=== PATIENT | male | born 1945 | race Caucasian/White ===

== ENCOUNTER 2017-12-14 06:22 | Inpatient (IN) | payer OTHER ==
[~2017-12-14] VITALS: Ht 167.6 cm; Wt 79.9 kg
[~2017-12-14 06:22] MED LIST: AMLO10TA2 PO; ASPI1TAB57 PO; CALC0.25 PO; CINN500C2 PO; EMPA1TAB7 PO; FISH1200 PO; INSU1INJ14 SQ; MAPA500T PO; METO50TA PO; MULT-65 PO; NOVOLOGP2 SQ
[2017-12-14] MEDS ORDERED: ACETAMINOPHEN 1000 MG/100 ML 100 ML IV ONE (06:59)
[2017-12-14] MEDS ORDERED: GENTAMICIN SULFATE 80 MG/2 ML VIAL ONE (07:00)
[2017-12-14] MEDS ORDERED: BUPIVACAINE/EPINEPHRINE 0.25% 50 ML VIAL ONE (07:00)
[2017-12-14] MEDS ORDERED: CHLORHEXIDINE GLUCONATE 2 % 1 PACK (2 CLOTHS) TOPICAL PRN (07:15)
[2017-12-14] MEDS ORDERED: SODIUM CHLORID 0.9% 500 ML IV PRN (07:15)
[2017-12-14] MEDS ORDERED: VANCOMYCIN 1 GM/200 ML INJ 200 ML IV SCH (07:15)
[2017-12-14] MEDS ORDERED: ceFAZolin 2 GM PREMIX 50 ML IV SCH (07:15)
[2017-12-14] MEDS ORDERED: POVIDONE IODINE 5% (ANTISEPSIS KIT) 4 APPLICATIONS EACH NARE PRN (07:15)
[2017-12-14] MEDS ORDERED: METOPROLOL TARTRATE 25 MG TAB PO PRN (07:15)
[2017-12-14] MEDS ORDERED: EXPAREL PERI-ARTICULAR INJECTION (TOTAL VOL. 60 ML) P-ARTICULR SCH ×4 (07:15→09:00)
[2017-12-14] MEDS ORDERED: LACTATED RINGER'S 1000 ML IV PRN (07:15)
[2017-12-14] MEDS ORDERED: CHLORHEXIDINE GLUCONATE 4% SOLN 120 ML BTL TOPICAL SCH (07:15)
[2017-12-14] MEDS ORDERED: BUPIVACAINE/EPINEPHRINE 0.25% PF 10 ML VIAL ONE (07:41)
[2017-12-14] MEDS ORDERED: TRANEXAMIC ACID INJ 799 MG in SODIUM CHLORIDE 0.9% INJ 100 ML IV SCH (09:00)
--- NOTE | 2017-12-14 11:28 | PD.OP ---
cc: Jorge Ortiz MD Operative Report Date of Surgery: Dec 14, 2017 Preoperative Diagnosis: Osteoarthritis left hip Postoperative Diagnosis: Same Procedure: Left total hip replacement arthroplasty, direct anterior exposure Anesthesia: Gen. Surgeon: Jorge Ortiz Sub Master(s): PASTOR Oswald Operation and Findings: EBL: 300 cc INDICATION: This patient presents with significant hip pain related to severe osteoarthritis of the left hip which is worse than the right hip. Both hips have severe arthritis.. Despite extensive conservative care this patient continues to be painful and now presents for surgical treatment. NOTE: Chantel Oswald PA-C was present for the entire surgical procedure as my dental assistant teacher. In my medical opinion her skill and care was necessary for the proper management of this patient. COMPONENTS: COMPANY: [employer] CUP: [place], 54 mm, 100 series, gription surface LINER: Altrx 36 mm, neutral STEM: Size 13, high offset, [place], hydroxyapatite-coated HEAD: Metal, 36, +1.5, /14 taper PROCEDURE: This patient was brought to the operating room and anesthetized in the supine position and positioned on the fracture table with both legs held extended. The left hip and leg was scrubbed with alcohol followed by Hibiclens followed by ChloraPrep and draped sterilely. Antibiotics were given within routine time window and a timeout was done. A 4 inch incision was made starting 2 cm distal and 2 cm lateral to the anterior superior iliac spine. The fascia erasmo was opened longitudinally. The interval between the fascia erasmo and the rectus was opened down to the capsule of the hip joint. Retractors were positioned allowing good visualization of the capsule. This was opened longitudinally and flaps were created. Stay sutures were utilized. Exposure was excellent. The neck was cut at the proper location using fluoroscopy as a guide. The head was removed. Deep retractors were positioned allowing good visualization of the acetabulum. Acetabulum was deepened down to the floor starting with a proper size reamer and reaming up to 53 mm. A trial was utilized. Fluoroscopy was used to check position and confirmed satisfactory alignment. The rim was reamed with a 54 mm reamer and the final cup was positioned in approximately 20 of anteversion and 40-45 of abduction. Position was satisfactory. A single hole eliminator was positioned followed by the final liner. The lifting hook was utilized. The leg was dropped to the floor, maximally externally rotated and brought across the midline. Retractors were positioned. A box osteotome was utilized followed by progressive broaching to the proper stem size. Trial reduction showed excellent alignment and fit. With 60 of external rotation the leg was dropped to the floor without evidence of anterior subluxation. The wound was irrigated. The final stem was inserted and was found to be very stable. The final reduction using the final head. Stability was as previously noted. Intraoperative x-rays were taken. The wound was irrigated copiously. Hemostasis was controlled. Local anesthesia was utilized. The capsule was repaired with #2 Tycron sutures. The fascia erasmo was repaired with running 0 PDS on a loop. Subcutaneous tissue was approximated with 2-0 Vicryl and skin with running intradermal 3-0 Vicryl followed by Steri-Strips. A sterile dressing was applied. The patient was awakened and taken to the recovery room in satisfactory condition. FINDINGS: There was severe osteoarthritis of the left hip. The final solution was excellent. No instability was noted. No complication was noted. Jorge Ortiz MD Dec 14, 2017 11:28
[2017-12-14] MEDS ORDERED: NALOXONE HCL 0.4 MG/ML AMP IV PUSH PRN (11:30)
[2017-12-14] MEDS ORDERED: ACETAMINOPHEN/HYDROcodone 325 MG/7.5 MG TAB PO PRN ×2 (11:30)
[2017-12-14] MEDS ORDERED: MORPHINE SULFATE 8 MG/ML INJ IM PRN (11:30)
[2017-12-14] MEDS ORDERED: MISCELLANEOUS NURSING INFORMATION XX PRN (11:30)
[2017-12-14] MEDS ORDERED: GLUCAGON 1 MG/ML VIAL OTHER PRN (11:30)
[2017-12-14] MEDS ORDERED: DEXTROSE 50% IN WATER 50 ML VIAL(D50) IV PUSH PRN (11:30)
[2017-12-14] MEDS ORDERED: MISCELLANEOUS PHARMACY INFORMATION XX ONE (11:30)
[2017-12-14] MEDS ORDERED: ASPI325T33 PO (11:31)
[2017-12-14] MEDS ORDERED: HYDR-3580 PO (11:31)
--- NOTE | 2017-12-14 11:31 | RADRPT ---
EXAM DATE/TIME: 12/14/2017 10:16 [place] COMPARISON: No previous studies available for comparison. INDICATIONS : Left total hip replacement. MEDICAL HISTORY : None. SURGICAL HISTORY : None. ENCOUNTER: Initial ACUITY: 1 day PAIN SCORE: Non-responsive. LOCATION: Left Hip CONCLUSION: Fluoroscopic images during left hip arthroplasty. No hardware loosening or fracture. James Shelton MD on December 14, 2017 at 11:30 Board Certified Radiologist. This report was verified electronically.
[2017-12-14] MEDS ORDERED: Post-op Orders (for Pharmacy) XX ONE (11:51)
[2017-12-14] MEDS ORDERED: DO NOT ADM ANY ANTICOAGULANT DRUGS PRN (11:51)
[2017-12-14] MEDS ORDERED: ePHEDrine/NS 25 MG/5 ML SYRINGE IV ONE (12:00)
[2017-12-14] MEDS ORDERED: NEOSTIGMINE 5 MG/5 ML SYRINGE IV PUSH ONE (12:00)
[2017-12-14] MEDS ORDERED: PROPOFOL 200 MG/20 ML AMP IV ONE (12:00)
[2017-12-14] MEDS ORDERED: SODIUM CHLOR 0.9% 250 ML INJ 250 ML IV ONE (12:00)
[2017-12-14] MEDS ORDERED: ROCURONIUM INJ 50 MG/5 ML SYRINGE IV PUSH ONE (12:00)
[2017-12-14] MEDS ORDERED: GLYCOPYRROLATE 1 MG/5 ML SYRINGE IV PUSH ONE (12:00)
[2017-12-14] MEDS ORDERED: LACTATED RINGER'S 1000 ML INJ 1,000 ML IV ONE (12:00)
[2017-12-14] MEDS ORDERED: DEXAMETHASONE SOD PHOS 4 MG/ML VIAL IV ONE (12:00)
[2017-12-14] MEDS ORDERED: PHENYLEPH/NS 1000 MCG/10 ML SYR IV ONE (12:00)
[2017-12-14] MEDS ORDERED: LIDOCAINE HCL 1% PF 5 ML SYRINGE OTHER ONE (12:00)
[2017-12-14] MEDS ORDERED: ONDANSETRON HCL 4 MG/2 ML VIAL IV ONE (12:00)
[2017-12-14] MEDS ORDERED: MIDAZOLAM HCL 2 MG/2 ML VIAL ONE (12:00)
[2017-12-14] MEDS ORDERED: PHENYLEPHRINE HCL 10 MG/ML VIAL IV ONE (12:00)
[2017-12-14] MEDS: LACTATED RINGER'S 1000 ML INJ 1,000 ML IV SCH ×2 (12:15→23:10)
[2017-12-14] MEDS ORDERED: ASPIRIN 81 MG CHEW TAB CHEW ONE (12:45)
[2017-12-14 15:34] VITALS: O2SAT 96
[2017-12-14] MEDS ORDERED: BALANCED SALT SOLN OPHT IRRIG 15 ML BTL RIGHT EYE ONE (15:45)
[2017-12-14 16:00] VITALS: BP 135/68; PULSE 86; RESP 18; TEMP 96.9; O2SAT 95
[2017-12-14] MEDS: INSULIN ASPART 1,000 UNITS/10 ML VIAL SQ SCH (17:00)
[2017-12-14] MEDS ORDERED: WALKER WHEELS/F1 MIS (19:44)
[2017-12-14] MEDS ORDERED: COMMODE 3-IN-11 MIS (19:45)
--- NOTE | 2017-12-14 19:47 | HHI.FF ---
Face to Face Verification Diagnosis: (1) Osteoarthritis of left hip Physical Therapy Gait training, Safety evaluation, Transfer training, bed to chair Hip: Total hip, Protocol: Left, Progress to weight bearing Left LE Weight Bearing: WB as tolerated Additional Instructions PT 4 days/wk for 2 weeks. WBAT LeftLE. Anterior [place]rey precautions. Walker as needed. Gait training. Nursing RN Days per Week: 2 x Week(s): 1 Dressing Changes: Do not change dressing Additional Instructions Vitals assessment. Dressing assessment - do not change unless saturated. I have seen patient Klaus Lees on 12/14/17. My clinical findings support the need for the requested home health care services because: Limited ability to care for self High risk of falls I certify that my clinical findings support that this patient is homebound because: Post-op weakness Unsteady gait/balance Mariam Hopson Dec 14, 2017 19:47
--- NOTE | 2017-12-14 19:48 | HHI.DCPOC ---
Discharge Care Plan Diagnosis: (1) Osteoarthritis of left hip Your Health Problems Are: Difficulty with ADL Incision/Drains Swelling Goals to Promote Your Health * To prevent worsening of your condition and complications * To maintain your health at the optimal level Directions to Meet Your Goals Take your medications as prescribed Follow your dietary instruction Follow activity as directed Keep your appointments as scheduled Take your immunizations and boosters as scheduled If your symptoms worsen call your PCP, if no PCP go to Urgent Care Center or Emergency Room Smoking is Dangerous to Your Health. Avoid second hand smoke Call the 24-hour hour crisis hotline for domestic abuse at Mariam Hopson Dec 14, 2017 19:48
--- NOTE | 2017-12-14 19:54 | HHI.DS ---
Discharge Summary Admission Date Dec 14, 2017 at 06:22 Discharge Date: Dec 15, 2017 Admitting Diagnosis see below Diagnosis: (1) Osteoarthritis of left hip Diagnosis: Principal ICD Codes: M16.12 - Unilateral primary osteoarthritis, left hip (2) Avascular necrosis of bone of left hip Diagnosis: Secondary ICD Codes: M87.052 - Idiopathic aseptic necrosis of left femur Procedures Left total hip arthroplasty, direct anterior approach Brief History This is a 72 year old male patient with a 5-6 year history of left hip pain. He adjusted his activities and took OTC medications. This began to escalate over the last year so he increased to higher strength ibuprofen and intermittent tylenol. His PCP eventually instructed him to stop taking NSAIDs due to kidney disease. Xrays were performed of the hip showing substantial inflammatory arthritis and some features of avascular necrosis. Because of his substantial pain and features of AVN, further conservative care was not recommended. Surgical treatment in the form of left total hip arthroplasty, anterior approach, was suggested. The patient agreed and now presents for the above procedure. Hospital Course Surgical treatment was performed on the day of admission without complication. He recovered well in PACU and was transferred to the orthopaedic floor. Pain was controlled with IV and oral medications. DVT prophylaxis was initiated with 2 ASA 81mg. He was compliant with physical therapy and all total hip precautions. After 1 day he was found to be stable and discharged home with home health care. He was instructed to continue his therapy, to not change his surgical dressing and to ice the operative site twice daily. Patient was given prescriptions of [place] 7.5mg to take as needed and ASA 81mg to be taken twice daily. Pt Condition on Discharge: Stable Discharge Disposition: Disch w/ Home Health Serv Discharge Instructions Diet Instructions: Diabetic Diet, High Fiber Diet Activities You Can Perform: Weight Bearing as [place] Activities to Avoid: Strenuous Activity Additional Activity Instruc.: Anterior [place] precautions New Medications: Commode 3-in-1 (Commode 3-in-1) 1 Mis Mis EA .XX DIRECTED, #1 0 Refills Walker with Front Wheels (Walker with Front Wheels) 1 Mis Mis EA .XX DIRECTED, #[address] (Aspirin EC) 325 Mg Tabdr 81 MG PO BID for Prevent Blood Clot, #60 TAB Hydrocodone/Acetaminophen (Hydrocodone-Acetamin 7.5-325) 7.5 Mg-325 Mg Tablet 1 TAB PO Q4H PRN for Pain, #50 TAB Continued Medications: Acetaminophen (Mapap) 500 Mg Tab 500 MG PO Q4-6H PRN for PAIN, TAB 0 Refills Amlodipine (Amlodipine) 10 Mg Tab 10 MG PO DAILY for Blood Pressure Management, #30 TAB 0 Refills Calcitriol (Calcitriol) 0.25 Mcg Cap 0.25 MCG PO DAILY for Calcium Supplement, #30 CAP 0 Refills Cinnamon (Eql Cinnamon) 500 Mg Cap 2000 MG PO BID, #1 BOTTLE Empagliflozin-Linagliptin (Glyxambi) 10-5 Mg Tab 1 TAB PO DAILY for Blood Sugar Management, #30 TAB 0 Refills Insulin Aspart Inj (Novolog Inj) 1,000 Unit/10 Ml Vial 5 UNITS SQ TIDAC for Blood Sugar Management, #1 INJECTION 0 Refills Insulin Degludec Inj (Tresiba Flextouch Pen Inj) 300 unit/3 ML Pen 1 UNITS SQ HS for Blood Sugar Management, #15 ML 0 Refills Metoprolol Tartrate (Metoprolol Tartrate) 50 Mg Tab 50 MG PO BID, #60 TAB 0 Refills Multiple Vitamin (Multi-Vitamin Daily) 1 Tab Tab 1 TAB PO DAILY for Nutritional Supplement, TAB 0 Refills [place]-3 Fatty Acids (Fish Oil 1200 mg) 360 Mg-1,200 Mg Cap 2 CAP PO BID Discontinued Medications: Aspirin DR (Aspirin 81) 81 Mg Tabdr 81 MG PO DAILY, TAB 0 Refills Mariam Hopson Dec 14, 2017 19:54
[2017-12-14 20:00] VITALS: BP 138/74; PULSE 92; RESP 16; TEMP 98; O2SAT 93
[2017-12-14] MEDS: MAGNESIUM HYDROXIDE SUSP 30 ML CUP PO SCH (20:25)
[2017-12-14] MEDS: METOPROLOL TARTRATE 50 MG TAB PO SCH (20:26)
[2017-12-14] MEDS ORDERED: SENNOSIDES 8.6 MG TAB PO SCH (21:00)
[2017-12-14] MEDS ORDERED: ASPIRIN EC 325 MG TABEC PO SCH (21:00)
[2017-12-14] MEDS ORDERED: NON-FORMULARY DRUG (Insulin Degludec Inj (Tresiba Flextouch Pen Inj) 1 UNITS) SQ SCH (21:00)
[2017-12-15] VITALS: BP 129/72; PULSE 99; RESP 15; TEMP 98; O2SAT 95
[2017-12-15 04:00] VITALS: BP 140/68; PULSE 83; RESP 15; TEMP 97.6; O2SAT 93
[2017-12-15 06:19] LABS: HEMATOCRIT 40.1 % (39.0-51.0); HEMOGLOBIN 13.3 GM/DL (13.0-17.0)
[2017-12-15 08:00] VITALS: BP 139/65; PULSE 72; RESP 18; TEMP 96.9; O2SAT 94
[2017-12-15] MEDS: INSULIN ASPART 1,000 UNITS/10 ML VIAL SQ SCH ×2 (08:43→12:25)
[2017-12-15] MEDS: METOPROLOL TARTRATE 50 MG TAB PO SCH (08:43)
[2017-12-15] MEDS: MAGNESIUM HYDROXIDE SUSP 30 ML CUP PO SCH (08:43)
[2017-12-15] MEDS ORDERED: EMPAGLIFLOZIN LINAGLIPTIN PO SCH (09:00)
[2017-12-15] MEDS ORDERED: ASPIRIN EC 81 MG TABEC PO SCH (09:00)
[2017-12-15 12:00] VITALS: BP 128/65; PULSE 69; RESP 18; TEMP 96.8; O2SAT 91
[2017-12-15] MEDS: LACTATED RINGER'S 1000 ML INJ 1,000 ML IV SCH (12:21)
--- NOTE | 2017-12-15 12:40 | PD.ORT.PN ---
Subjective Subjective Remarks He is doing 'fine'. He did not sleep well last night but states his pain is better than expected. He 'actually feels better than before the surgery'. He denies any new leg pain, CP or SOB. He is ready for d/c home. Objective Vitals Vital Signs Date Time Temp Pulse Resp B/P (MAP) Pulse Ox O2 Delivery O2 Flow Rate FiO2 12/15/17 11:52 16 12/15/17 08:00 96.9 72 18 139/65 (89) 94 12/15/17 04:00 97.6 83 15 140/68 (92) 93 12/15/17 00:00 98.0 99 15 129/72 (91) 95 12/14/17 20:00 98.0 92 16 138/74 (95) 93 12/14/17 16:00 96.9 86 18 135/68 (90) 95 12/14/17 15:34 96 Nasal Cannula 3.00 12/14/17 13:30 98.3 74 18 111/58 (75) 99 Nasal Cannula 2 12/14/17 13:00 75 14 111/58 (75) 99 12/14/17 12:45 75 20 109/61 (77) 98 I/O 12/14/17 12/14/17 12/14/17 12/15/17 12/15/17 12/15/17 07:00 15:00 23:00 07:00 15:00 23:00 Intake Total 2000 ml 800 ml Output Total 700 ml Balance 1300 ml 800 ml Intake Oral 800 ml IV Total 2000 ml Output Urine Total 400 ml Estimated Blood Loss 300 ml # Voids 4 5 Result Diagram: 12/15/17 0504 Procedures Left total hip arthroplasty, direct anterior approach Objective Remarks Standing in room leaning on walker present NAD VSS LLE Left Hip dressing c/d/i, minimal drainage, mild swelling, no erythema Thigh and calf supple, neg homans distal +motor at, +sens, +nvi Assessment & Plan Ortho Post Op Day #: 1 Problem List: (1) Osteoarthritis of left hip ICD Codes: M16.12 - Unilateral primary osteoarthritis, left hip Qualifiers: Qualified Codes: M16.12 - Unilateral primary osteoarthritis, left hip (2) Avascular necrosis of bone of left hip ICD Codes: M87.052 - Idiopathic aseptic necrosis of left femur Assessment and Plan pod#1 s/p L [place], anterior approach Ortho stable. Doing well today. Ok to d/c home w [facility] after PT today. [place] for pain control. ASA 81mg twice daily. Hold dressing changes unless saturated. PT - WBAT LLE. Anterior [place] precautions. F/U in 2 weeks as scheduled. F2F signed. Mariam Hopson Dec 15, 2017 12:40
== END 2017-12-15 14:18 | disposition home health service (06) | DRG 470 ==
LOC: HSDI 06:22 → N06A 13:56
PROVIDERS: ADMIT Orthopaedic Surgery Orthopaedic Surgery of the Spine; ATTEND Orthopaedic Surgery Orthopaedic Surgery of the Spine
PROC: 0SRB01A Replacement of Left Hip Joint with Metal Synthetic Substitute, Uncemented, Open Approach (ICD-10-PCS; principal; 2017-12-14 09:12)
DX: M16.12 Unilateral primary osteoarthritis, left hip (principal); D69.3 Immune thrombocytopenic purpura; E09.9 Drug or chemical induced diabetes mellitus without complications; H90.5 Unspecified sensorineural hearing loss; M87.9 Osteonecrosis, unspecified; I25.10 Atherosclerotic heart disease of native coronary artery without angina pectoris; E78.00 Pure hypercholesterolemia, unspecified; I10 Essential (primary) hypertension; Z79.82 Long term (current) use of aspirin; Z79.4 Long term (current) use of insulin; Z95.2 Presence of prosthetic heart valve
CPT/HCPCS: 73502; 76000; 82948; 85014; 85018; 86850; 86900; 86901; 86920; 94150; C1776; C9290; J0131; J0690; J1100; J1580; J1815; J2250; J2370; J2405; J2710; J3010; J3370; J7050; J7120

== ENCOUNTER 2018-06-29 20:29 | Inpatient (IN) ==
[2018-06-29] MEDS ORDERED: Potassium Chlor 20 mEq Premix 20 MEQ/100 ML PIGGYBACK IV.SIG PRN ×2 (23:46)
[2018-06-29] MEDS ORDERED: Potassium Chlor 40 mEq Premix 40 MEQ/100 ML PIGGYBACK IV.SIG PRN ×2 (23:46)
[2018-06-29] MEDS ORDERED: Potassium Phosphate Inj 30 MMOL in Sodium Chlor 0.9% Inj 250 ML IV.SIG PRN (23:46)
[2018-06-29] MEDS ORDERED: Dextrose 50% in Water 50 ML Vial IV.PUSH PRN (23:46)
[2018-06-29] MEDS ORDERED: Potassium Chloride 25 MEQ Effervescent Tablet PO PRN (23:46)
[2018-06-29] MEDS ORDERED: Sodium Phosphate Inj 30 MMOL in Sodium Chlor 0.9% Inj 250 ML IV.SIG PRN (23:46)
[2018-06-29] MEDS ORDERED: Potassium Phosphate 500 MG Soluble Tablet PO PRN ×2 (23:46)
[2018-06-29] MEDS ORDERED: Magnesium Sulfate Inj 4 GM in Sodium Chlor 0.9% Inj 92 ML IV.SIG PRN (23:46)
[2018-06-29] MEDS ORDERED: Magnesium Sulfate Inj 2 GM in Sodium Chlor 0.9% Inj 96 ML IV.SIG PRN (23:46)
[2018-06-29] MEDS ORDERED: Magnesium Oxide 400 MG Tablet PO PRN (23:46)
--- NOTE | 2018-06-29 23:46 | P.HPCC ---
History of Present Illness Service: Critical Care Medicine Primary Care Physician: Hussein Morgan MD, PhD Chief Complaint: fatigue, sob History of Present Illness: This is a 72-year-old male with a history of prior aortic valve pathology status post an aortic valve replacement in 2010 here at [facility]. He has been seeing his primary care doctor at the [facility] over the last 2 weeks for increasing shortness of breath and lower extremity edema. He was placed on furosemide with some symptomatic relief. Today, he was in clinic and he stated he continued to feel worsening of his shortness of breath today. EKG in clinic demonstrated third-degree heart block and the patient was sent from clinic to the [facility] in [place]. [facility] in [place] admitted the patient, however no electrophysiology or cardiology consultation was available at the [facility], and the [facility] asked [facility] to accept the patient in transfer for workup of his third-degree heart block. Per the [facility] reports, the patient had a ventricular rate in the 30s-40s and was intermittently transcutaneously paced. Upon arrival to our institution, the patient has a ventricular rate of 70s. Repeat EKG still demonstrates that the patient has P waves and QRS complexes, but it does appear that the patient has complete heart block. His QRS complex is narrow, which would suggest that his ventricular rhythm is somewhat junctional in nature, but he clearly has regular P waves which are not associated in any way with his QRS complex. The patient is here still endorses mild shortness of breath. He denies any chest pain. He states that he has not had a recent echocardiogram. Does endorse lower extremity edema. Endorses mild dyspnea on exertion which has been very slowly increasing over the last 2 weeks. Denies orthopnea. Denies PND. Denies fever and chills. He is febrile to 102 here on admission, and other than he states approximately 2-3 weeks ago he felt like he had "head cold", he endorses no other infectious symptoms. He denies any runny nose, cough, congestion. Denies nausea, vomiting, diarrhea, constipation, abdominal pain. The remainder of the review of systems is negative. Dr. Varun Santillan with cardiology has been informed of the patient's admission and has accepted the patient in consultation from the [facility]. PMHx: prior aortic valve pathology, s/p valve replacement CKD stage III Chronic heart failure, unknown type CAD HLD DM PSHx: aortic valve replacement FHx: mother with pacemaker, unknown reason why. [facility]. of note, patient on 50mg metoprolol BID. Inpatient Certification: I certify that the inpatient services were ordered in accordance with Medicare regulations governing the order. This includes certification that hospital inpatient services are reasonable and necessary and in the case of services not specified as inpatient-only under 42 CFR 419.22(n), that they are appropriately provided as inpatient services in accordance to with the 2-midnight benchmark under 43 CFR 412.3(e) Estimated Total Length of Stay (Days): 5 Plans for Post Hospital Care: Home Review of Systems All other systems reviewed negative except as stated in HPI [facility] - Family History Family History: Family History (Last Updated 06/30/18 @ 01:01 by Misha Sharif MD) Mother Pacemaker - Social History I have reviewed the patient's Social History: Yes Medications and Allergies Allergies Allergy/AdvReac Type Severity Reaction Status Date / Time Dghycnb-[id number]-Cbn Reductase Allergy Severe muscle Verified 04/12/18 05:50 Inhibitor weakness atorvastatin Allergy Mild Verified 04/12/18 05:50 Exam Vital signs: Intake & Output 06/29/18 06/29/18 06/30/18 06:59 18:59 06:59 Weight 84.5 kg Other: Weight On Admission 84.5 kg Narrative: GENERAL: Elderly male, sitting up in bed, no apparent distress. HEENT: Normocephalic. Atraumatic. Pupils equal, round, reactive, conjugate. Mucous membranes are moist NECK: Trachea is midline. There is no JVD. CHEST: Equal chest rise. Mildly tachypneic but can talk in full sentences. Appears unlabored. Nasal cannula oxygen. CARDIOVASCULAR: Normal rate of 72, slightly irregular rhythm. By EKG, third- degree heart block with a narrow QRS complex. ABDOMEN: Soft, nontender, nondistended. No guarding. MUSCULOSKELETAL: Pulses 2+. 1+ pitting edema of the lower extremities. NEUROLOGICAL: RASS 0. GCS 15. Follows commands in all 4 extremities. No focal deficits. Caprini VTE Risk Assessment Caprini VTE Risk Assessment: Moderate/High Risk (score >= 2) Caprini Risk Assessment Model: Point Value = 1 Point Value = 2 Point Value = 3 Point Value = 5 Age 41-60 Minor surgery BMI > 25 kg/m2 Swollen legs Varicose veins or History of unexplained or recurrent spontaneous Oral contraceptives or hormone replacement Sepsis (< 1 month) Serious lung disease, including pneumonia (< 1 month) Abnormal pulmonary function Acute myocardial infarction Congestive heart failure (< 1 month) History of inflammatory bowel disease Medical patient at bed rest Age 61-74 Arthroscopic surgery Major open surgery (> 45 min) Laparoscopic surgery (> 45 min) Malignancy Confined to bed (> 72 hours) Immobilizing plaster cast Central venous access Age >= 75 History of VTE Family history of VTE Factor V Leiden Prothrombin [id number] Lupus anticoagulant Anticardiolipin antibodies Elevated serum homocysteine Heparin-induced thrombocytopenia Other congenital or acquired thrombophilia Stroke (< 1 month) Elective arthroplasty Hip, pelvis, or leg fracture Acute spinal cord injury (< 1 month) Prophylaxis Regimen: Total Risk Factor Score Risk Level Prophylaxis Regimen 0-1 Low Early ambulation 2 Moderate Order ONE of the following: *Sequential Compression Device (SCD) *Heparin 5000 units SQ BID 3-4 Higher Order ONE of the following medications: *Heparin 5000 units SQ TID *Enoxaparin/Lovenox 40 mg SQ daily (WT < 150 kg, CrCl > 30 mL/min) *Enoxaparin/Lovenox 30 mg SQ daily (WT < 150 kg, CrCl > 10-29 mL/min) *Enoxaparin/Lovenox 30 mg SQ BID (WT < 150 kg, CrCl > 30 mL/min) AND/OR *Sequential Compression Device (SCD) 5 or more Highest Order ONE of the following medications: *Heparin 5000 units SQ TID (Preferred with Epidurals) *Enoxaparin/Lovenox 40 mg SQ daily (WT < 150 kg, CrCl > 30 mL/min) *Enoxaparin/Lovenox 30 mg SQ daily (WT < 150 kg, CrCl > 10-29 mL/min) *Enoxaparin/Lovenox 30 mg SQ BID (WT < 150 kg, CrCl > 30 mL/min) AND *Sequential Compression Device (SCD) Assessment and Plan - Assessment and Plan Plan: Assessment: 72-year-old male with new diagnosis of third-degree heart block. We will keep on telemetry in ICU with Zoll pads attached. Will need to rule out acute ischemia and acute worsening of his ventricular function as a cause for his new conduction disorder. I do not think his metoprolol is associated with his AV antonette dysfunction, but we will hold this at this time. Is unclear to me what significance if any his fever has on his overall clinical course, as he does not have any infectious complaints at this time. Will obtain chest x- ray, CBC, BMP, magnesium, phosphorus, serial troponins, BNP. He will also need 2D echocardiogram to evaluate for left ventricular function and diastolic function. Clearly very high risk and highly complex. If his workup is negative for ischemia or worsening heart failure, the patient will likely need permanent pacemaker. I have consulted cardiology to assist with the workup. 3rd degree heart block - check CMP, Mg, Phos - check cardiac enzymes - check BNP - EKG - cardiology consult - NPO at [place] for possible permanent pacemaker - keep on Zoll Pads - if any symptomatic bradycardia, low threshold for transvenous pacer placement. - 2d echo Acute hypoxemia - CXR - CBC - may require forced diuresis Fever - unclear significance - check CBC - if leukocytosis, may need to rule out sources of infection. Chronic Kidney disease stage III possible superimposed Acute kidney injury - unknown baseline Cr - check urine electrolytes - bmp, mg, phos - hold off on ivf at this time. Congestive heart failure, unknown type - 2d echo - bnp - may need forced diuresis. HLD - statin SCDs NPO pending work-up.
--- NOTE | 2018-06-30 01:23 | XR ---
EXAM DATE: 06/30/2018 1:15 AM EDT AGE/SEX: 72 years / Male INDICATIONS: Shortness of breath. CLINICAL DATA: This is the patient's initial encounter. Patient reports that signs and symptoms have been present for 1 day and indicates a pain score of 0/10. MEDICAL/SURGICAL HISTORY: Hypertension. Diabetes. CABG. Left hip arthroplasty. COMPARISON: No prior exams available for comparison. FINDINGS: Postoperative median sternotomy. Mild interstitial edema pattern. No significant effusion. No pneumot horax. Heart size upper limits normal. CONCLUSION: Interstitial prominence most characteristic of mild interstitial edema. Previous sternotomy. Electronically signed by: Watler Oscar MD 06/30/2018 1:22 AM EDT
[2018-06-30] MEDS: Insulin NovoLIN Regular Correctional Sugar Inj SQ SCH ×4 (01:56→18:05)
[2018-06-30] MEDS: Acetaminophen 325 MG Tablet PO PRN ×2 (02:02→20:35)
[2018-06-30 02:18] LABS: Baso # (Auto) 0.2 th/mm3 (0.0-0.2); Baso % (Auto) 0.9 % (0.0-2.0); Hematocrit 33.7 % (39.0-51.0); Hemoglobin 10.9 gm/dL (13.0-17.0); Lymph # (Auto) 5.8 th/mm3 (1.0-4.8); Lymph % (Auto) 26.3 % (9.0-44.0); Mean Corpuscular HGB Conc 32.3 % (32.0-36.0); Mean Corpuscular Hemoglobin 28.8 pg (27.0-34.0); Mean Corpuscular Volume 89.4 fL (80.0-100.0); Mean Platelet Volume 10.5 fL (7.0-11.0); Mono # (Auto) 1.6 th/mm3 (0.0-0.9); Mono % (Auto) 7.2 % (0.0-8.0); Neut # (Auto) 14.3 th/mm3 (1.8-7.7); Neut % (Auto) 65.6 % (16.0-70.0); Platelet Count 298 th/mm3 (150-450); Red Blood Count 3.77 mil/mm3 (4.50-5.90); Red Cell Distribution Width 14.7 % (11.6-17.2); White Blood Count 21.9 th/mm3 (4.0-11.0)
[2018-06-30 02:37] LABS: Alanine Aminotransferase 23 U/L (12-78); Albumin 2.9 g/dL (3.4-5.0); Anion Gap 13 meq/L (5-15); Aspartate Aminotransferase 19 U/L (15-37); Blood Urea Nitrogen 52 mg/dL (7-18); Calcium 8.6 mg/dL (8.5-10.1); Carbon Dioxide 19.7 meq/L (21.0-32.0); Chloride 106 meq/L (98-107); Glomerular Filtration Rate 30 mL/min (>89); Glucose,Random 155 mg/dL (74-106); Magnesium 2.4 mg/dL (1.5-2.5); Phosphorus 3.9 mg/dL (2.5-4.9); Potassium 5.1 meq/L (3.5-5.1); Sodium 139 meq/L (136-145)
[2018-06-30 02:45] LABS: Alkaline Phosphatase 84 U/L (45-117); Free T4 (Free Thyroxine) 1.45 ng/dL (0.76-1.46); Thyroid Stimulating Hormone 0.711 uIU/mL (0.358-3.740); Total Protein 7.5 g/dL (6.4-8.2); Troponin I 0.11 ng/mL (0.02-0.05)
[2018-06-30 02:48] LABS: Lymphocytes 19 % (9-44); Monocytes 3 % (0-8)
[2018-06-30 02:49] LABS: Acanthocytes Occ; Ovalocytes 1+; Platelet Estimate Normal (Normal); Platelet Morphology Normal (Normal)
[2018-06-30 02:52] LABS: Creatine Kinase 49 U/L (39-308)
[2018-06-30] MEDS ORDERED: Chlorhexidine Gluconate 2% 1 Pack (2 Cloths) TOPICAL PRN (04:00)
[2018-06-30 04:03] LABS: Bacteria,Urine Rare /hpf; Bilirubin,Urine Negative (Negative); Clarity,Urine Hazy (Clear); Color,Urine Yellow (Yellw/Straw); Glucose,Urine (UA) Negative (Negative); Leukocyte Esterase,Urine Negative (Negative); Mucus,Urine Few /lpf (Occasional); Nitrite,Urine Negative (Negative); Specific Gravity,Urine 1.017 (1.002-1.035)
[2018-06-30] MEDS: Chlorhexidine Gluconate 2% 1 Pack (2 Cloths) TOPICAL SCH (05:38)
--- NOTE | 2018-06-30 07:45 | P.PNCC ---
Subjective Subjective Remarks/Hospital Course: This is a 72-year-old male with a history of prior aortic valve pathology status post an aortic valve replacement in 2010 here at [facility]. He has been seeing his primary care doctor at the [facility] over the last 2 weeks for increasing shortness of breath and lower extremity edema. He was placed on furosemide with some symptomatic relief. Today, he was in clinic and he stated he continued to feel worsening of his shortness of breath today. EKG in clinic demonstrated third-degree heart block and the patient was sent from clinic to the [facility] in [place]. [facility] in [place] admitted the patient, however no electrophysiology or cardiology consultation was available at the [facility], and the [facility] asked [facility] to accept the patient in transfer for workup of his third-degree heart block. Per the [facility] reports, the patient had a ventricular rate in the 30s-40s and was intermittently transcutaneously paced. Upon arrival to our institution, the patient has a ventricular rate of 70s. Repeat EKG still demonstrates that the patient has P waves and QRS complexes, but it does appear that the patient has complete heart block. His QRS complex is narrow, which would suggest that his ventricular rhythm is somewhat junctional in nature, but he clearly has regular P waves which are not associated in any way with his QRS complex. The patient is here still endorses mild shortness of breath. He denies any chest pain. He states that he has not had a recent echocardiogram. Does endorse lower extremity edema. Endorses mild dyspnea on exertion which has been very slowly increasing over the last 2 weeks. Denies orthopnea. Denies PND. Denies fever and chills. He is febrile to 102 here on admission, and other than he states approximately 2-3 weeks ago he felt like he had "head cold", he endorses no other infectious symptoms. He denies any runny nose, cough, congestion. Denies nausea, vomiting, diarrhea, constipation, abdominal pain. The remainder of the review of systems is negative. Dr. Varun Santillan with cardiology has been informed of the patient's admission and has accepted the patient in consultation from the [facility]. SUBJECTIVE: 06/30: Currently afebrile. Currently on a Venturi mask 30% satting 92-94%. Some intravascular prominence on chest x-ray this a.m. Was previously on furosemide 40 mg twice daily and spironolactone 25 mg daily for pulmonary edema started 06/22 by his primary care physician. Creatinine currently 2.2. Baseline is 1.4-1.6. Complaining of edema in bilateral lower extremities which is new for him. 2d echocardiogram results pending. Last chest pain Objective Vital Signs / I&O: Vital Signs 06/29/18 23:00 06/29/18 23:10 06/30/18 00:00 Temperature 102.4 F H Pulse Rate 72 72 Respiratory Rate 28 H 24 Blood Pressure 176/72 H 160/70 H Pulse Oximetry 06/30/18 03:00 06/30/18 04:00 06/30/18 04:05 Temperature 98.5 F Pulse Rate 59 L 55 L Respiratory Rate Blood Pressure 132/54 L Pulse Oximetry 94 L Intake & Output 06/29/18 06/30/18 06/30/18 18:59 06:59 18:59 Intake Total 240 / 240 Output Total 100 / 100 Balance 140 / 140 Weight 83.5 kg Intake: Oral 240 / 240 Output: Urine 100 / 100 Other: Weight On Admission 84.5 kg Result Diagrams: 06/30/18 01:25 06/30/18 01:25 Imaging: Chest X-Ray 06/30/18 00:53 CONCLUSION: Interstitial prominence most characteristic of mild interstitial edema. Previous sternotomy. Objective Remarks: GENERAL: 72-year-old male currently resting in bed in mild respiratory distress SKIN: Warm and dry. HEAD: Atraumatic. Normocephalic. EYES: Pupils equal and round about 3 mm bilaterally and reactive. No scleral icterus. No injection or drainage. ENT: No nasal bleeding or discharge. Mucous membranes pink and moist. NECK: Trachea midline. No JVD. CARDIOVASCULAR: Third-degree heart block on telemetry. No obvious murmurs are appreciated. RESPIRATORY: Shallow/tachypneic breaths. Breath sounds equal bilaterally. GASTROINTESTINAL: Abdomen soft, non-tender, nondistended. Hypoactive bowel sounds are appreciated. MUSCULOSKELETAL: Extremities with trace to 1+ bilateral lower extremity edema. No obvious deformities. NEUROLOGICAL: Awake and alert. No obvious cranial nerve deficits. Motor grossly within normal limits. Five out of 5 muscle strength in the arms and legs. Normal speech. PSYCHIATRIC: Appropriate mood and affect; insight and judgment normal. Assessment and Plan - Assessment and Plan Plan: Neuro/Psych: History of sensorineural hearing loss Acetaminophen 650 mg p.o. every 6 hours as needed fever Oxycodone 5 mg p.o. every 4 hours as needed pain 1 through 5 Morphine sulfate 2 mg IV every 2 hours as needed pain 6 through 10 CV: Third-degree heart block History of first-degree AV block Elevated troponin Elevated BNP Congestive heart failure unknown etiology History of essential hypertension Hyperlipidemia History of aortic valve replacement Dr. Santillan/cardiology consult Continue NPO at [place] for possible permanent pacemaker Continue on Zoll Pads - if any symptomatic bradycardia, low threshold for transvenous pacer placement. Pending results 2d echo Initial troponin 0 0.11. Repeat pending 3 Home medications are metoprolol tartrate 50 mg twice daily and amlodipine 10 mg daily. This been held Holding aspirin 81 mg daily Holding fish oil 1000 mg twice daily for dyslipidemia. We will place on furosemide 20 mg IV twice daily. Previously on 40 mg twice daily and Spironolactone 25 mg daily Resp: Acute hypoxemic respiratory failure Currently on Venturi mask 50% to maintain saturations greater than equal 92% On lung hyperinflation protocol with a EZPAP/PEP therapy Albuterol/ipratropium aerosols every 6 hours with albuterol aerosols every 2 hours as needed for dyspnea Received 40 mg IV furosemide overnight. Previously on furosemide 40 mg p.o. daily and prolactin 25 mg daily Chest x-ray on admission revealed mild interstitial prominence likely pulmonary congestion GI: Hypoalbuminemia History of splenectomy Currently n.p.o. except for medications Pantoprazole for GI prophylaxis Docusate sodium/senna 1 tablet twice daily for bowel regimen : Claire catheter if indicated for accurate I's and O's in a critically ill patient Endo: Diabetes mellitus type 2 Currently on insulin Novulin R with Accu-Cheks every 6 hours to maintain euglycemia/medium protocol Holding metformin 5 mg twice daily/home medication. Normally on insulin glargine 28 units at night and insulin aspart 5 units a.m., 8 units for lunch and 8 units at supper TSH was 0.711 Renal: Acute kidney injury in the setting of chronic kidney disease stage IIIa Baseline creatinine defined as 1.4-1.6. Renal ultrasound/urine eosinophils and sodium and creatinine ordered Avoid nephrotoxic medications Recheck creatinine in a.m. 07/01 Ultrasound pending Urine eosinophils pending FENA was 0.2. Urine sodium was around 30. Urine sodium usually around 75 with furosemide use. So despite furosemide use probably likely prerenal Heme: Leukocytosis Normocytic anemia History of ITP Monitor CBC daily. Follow trends. No indication for transfusion of blood products at this time ID: Acute pyrexia History of RF Currently afebrile this a.m. Low threshold for infectious workup Check influenza A and B blood cultures 2. UA negative We will Doppler bilateral lower extremities with fever We will also order a pro-calcitonin this a.m. MSK: History of osteoarthritis of hip PT evaluate and treat FEN: Replace electrolytes as clinically indicated Access -Utilize peripheral IV. Central line if indicated Prophylaxis -GI -pantoprazole -DVT-SCD/heparin subcu Level 3 follow-up Code Status: Full code Discussed Condition With: CV OPERATIONS DIRECTOR. Patient. Care plan discussed and all questions answered.
[2018-06-30] MEDS ORDERED: Bisacodyl 10 MG Supp RECTAL PRN (07:56)
--- NOTE | 2018-06-30 08:33 | P.CONCA ---
History of Present Illness Service: [facility] cardiology Consult date: 06/30/18 Requesting Physician: Misha Sharif Reason for Consult: [facility] Primary Care Provider: Hussein Morgan MD, PhD Chief Complaint: fatigue, sob History of Present Illness: 72-year-old gentleman with severe s/p SAVR in 2010, CKD stage 3, HTN, DM, CAD with 30% mRCA stenosis by [facility] 2010, CHF transferred from [facility] in [place] yesterday evening after he presented there at the request of his PCP due to dyspnea with presumed CHF and bradycardia. He has been seeing his primary care doctor at the [facility] over the last 2 weeks for increasing shortness of breath and lower extremity edema. He was placed on furosemide with some symptomatic relief, though not resolved. He was noted to be bradycardic at office visit and an EKG in clinic demonstrated third-degree heart block and the patient was sent from clinic to the [facility] in [place]. [facility] in [place] admitted the patient, and the patient was reportedly evaluated by their inhouse emt/dispatcher who stated that no electrophysiology consultation was available at the [facility], and the [facility] asked [facility] to accept the patient in transfer for workup of his third-degree heart block. Per the [facility] reports, the patient had a ventricular rate in the 30s-40s and was intermittently transcutaneously paced. Upon arrival to our institution, the patient has a ventricular rate of 70s, and on telemetry overnight has maintained HR 40s-70s with a relatively narrow complex iRBBB morphology, 114ms QRS duration. The patient endorses mild shortness of breath but states he is comfortable. He denies any chest pain. States that approximately 2 weeks ago he developed a "head cold" with cough, sinus congestion along with the dyspnea and some chills though he did not check his temperature. Mild dyspnea on exertion which has been very slowly increasing over the last 2 weeks. Denies orthopnea and PND. He was febrile to 102 here on admission. Denies nausea, vomiting, diarrhea, constipation, abdominal pain. I was notified of the patient's course to the [facility] by their ER attending Dr Ann, who requested transfer to [facility]. She stated that patient has leukocytosis of 19k, and that per their records, patient apparent has leukocytosis of 13k-19k for some time now. Patient had transcutaneous pacer pads in place. Review of Systems All other systems reviewed negative except as stated in HPI PMFSH - History History Provided By: Patient - Family History Family History: Family History (Last Updated 06/30/18 @ 01:01 by Misha Sharif MD) Mother Pacemaker - Tobacco History Second Hand Smoke Exposure: No Tobacco Use In Past 30 Days: No Smoking Status: Never smoker - Alcohol History How Often Do You Have a Drink Containing Alcohol: Monthly or less - Substance Use History Substance History: No History of Abuse - Immunization History Tetanus Immunization: <5 Years Hx Influenza Vaccine This Season: No Medications and Allergies Active Medications: Active Medications Acetaminophen (Tylenol) 650 mg PO Q6H PRN PRN Reason: TEMPERATURE > 100 F Last Admin: 06/30/18 02:02 Dose: 650 mg Al Hydroxide/Mg Hydroxide (Milk Of Hannah Mathis) 30 ml PO Q12H PRN PRN Reason: Mild Constipation Albuterol (Duoneb Neb (Eyad)) 1 ampul NEB Q6HR NEB EYAD Albuterol (Albuterol Neb (Prn)) 2.5 mg NEB Q15M PRN PRN Reason: DYSPNEA Bisacodyl (Dulcolax Supp) 10 mg RECTAL DAILY PRN PRN Reason: SEVERE CONSITIPATION Calcitriol (Rocaltrol) 0.25 mcg PO DAILY EYAD Chlorhexidine Gluconate (Chlorhexidine 2% Cloth) 3 pack TOPICAL DAILY@0400 EYAD Stop: 07/05/18 03:59 Last Admin: 06/30/18 05:38 Dose: 3 pack Chlorhexidine Gluconate (Chlorhexidine 2% Cloth) 3 pack TOPICAL DAILY@0400 PRN PRN Reason: Extra cloth needed Stop: 07/05/18 03:59 Chlorhexidine Gluconate (Chlorhexidine 2% Cloth) 3 pack TOPICAL DAILY@0400 PRN PRN Reason: Extra cloth needed Stop: 07/06/18 03:59 Chlorhexidine Gluconate (Chlorhexidine 2% Cloth) 3 pack TOPICAL DAILY@0400 [facility] Stop: 07/06/18 03:59 Dextrose (D50w Vial) 50 ml IV.PUSH UNSCH PRN PRN Reason: PER HYPOGLYCEMIA PROTOCOL Furosemide (Lasix Inj) 80 mg IV.PUSH ONCE ONE Stop: 06/30/18 08:10 Glucagon (Glucagon Inj) 1 mg OTHER PRN PRN PRN Reason: for Hypoglycemia Protocol Heparin Sodium (Porcine) (Heparin Inj) 5,000 units SQ Q12H [facility] Insulin Human Regular (Novolin R Correctional Sugar Inj) 0 units SQ Q6HR [facility]; Protocol Last Admin: 06/30/18 06:20 Dose: 2 units Lactulose (Lactulose Liq) 30 ml PO DAILY PRN PRN Reason: SEVERE CONSITIPATION Magnesium Oxide (Mag-Ox) 800 mg PO UNSCH PRN PRN Reason: For Magnesium 1.2 - 1.6 mg/dL Morphine Sulfate (Morphine Inj) 2 mg IV.PUSH Q2H PRN PRN Reason: PAIN SCALE 6 TO 10 Ondansetron HCl (Zofran Inj) 4 mg IV.PUSH Q6H PRN PRN Reason: NAUSEA OR VOMITING Oxycodone HCl (Roxicodone) 5 mg PO Q4H PRN PRN Reason: Pain 1-5 Pantoprazole Sodium (Protonix) 40 mg PO DAILY [facility] Senna/Docusate Sodium (Amelia-Colace) 1 tab PO BID [facility] Sennosides (Senokot) 17.2 mg PO Q12H PRN PRN Reason: Moderate Constipation Sodium Chloride (Ns Flush) 2 ml IV.FLUSH UNSCH PRN PRN Reason: FLUSH AFTER USING IV ACCESS Sodium Chloride (Ns Flush) 2 ml IV.FLUSH BID [facility] Sodium Chloride (Ns Flush) 2 ml IV.FLUSH PRN PRN PRN Reason: FLUSH AFTER USING IV ACCESS Allergies Allergy/AdvReac Type Severity Reaction Status Date / Time Eqadmxo-Szz-Kqs Reductase Allergy Severe muscle Verified 04/12/18 05:50 Inhibitor weakness atorvastatin Allergy Mild Verified 04/12/18 05:50 Exam Vital signs: Vital Signs 06/29/18 23:00 06/29/18 23:10 06/30/18 00:00 Temperature 102.4 F H Pulse Rate 72 72 Respiratory Rate 28 H 24 Blood Pressure 176/72 H 160/70 H Pulse Oximetry 06/30/18 03:00 06/30/18 04:00 06/30/18 04:05 Temperature 98.5 F Pulse Rate 59 L 55 L Respiratory Rate Blood Pressure 132/54 L Pulse Oximetry 94 L Intake & Output 06/29/18 06/30/18 06/30/18 18:59 06:59 18:59 Intake Total 240 / 240 Output Total 100 / 100 Balance 140 / 140 Weight 83.5 kg Intake: Oral 240 / 240 Output: Urine 100 / 100 Other: Weight On Admission 84.5 kg GENERAL: AOx3, comfortable appearing, with nebulizer treatment, speaking full sentences SKIN: Warm and dry. HEAD: Atraumatic. Normocephalic. EYES: Pupils equal and round. No scleral icterus. No injection or drainage. ENT: No nasal bleeding or discharge. Mucous membranes pink and moist. NECK: Trachea midline. No JVD. CARDIOVASCULAR: Regular rate and rhythm. No murmurs appreciated RESPIRATORY: No accessory muscle use. Clear to auscultation. Breath sounds equal bilaterally. GASTROINTESTINAL: Abdomen soft, non-tender, nondistended. MUSCULOSKELETAL: Extremities without clubbing, cyanosis, or edema. No obvious deformities. NEUROLOGICAL: Awake and alert. No obvious cranial nerve deficits. Normal speech. PSYCHIATRIC: Appropriate mood and affect; insight and judgment normal. Results 06/30/18 01:25 06/30/18 01:25 Cardiac Enzymes 06/30/18 06/30/18 Range/Units 01:25 01:25 AST 19 (15-37) U/L Troponin I 0.11 H (0.02-0.05) ng/mL B-Natriuretic Peptide 1082 H (0-100) pg/mL Coagulation 06/30/18 Range/Units 01:25 B-Natriuretic Peptide 1082 H (0-100) pg/mL CBC 06/30/18 Range/Units 01:25 WBC 21.9 H (4.0-11.0) th/mm3 RBC 3.77 L (4.50-5.90) mil/mm3 Hgb 10.9 L (13.0-17.0) gm/dL Hct 33.7 L (39.0-51.0) % Plt Count 298 (150-450) th/mm3 Neut # (Auto) 14.3 H (1.8-7.7) th/mm3 Lymph # (Auto) 5.8 H (1.0-4.8) th/mm3 Johnson # (Auto) 1.6 H (0.0-0.9) th/mm3 Eos # (Auto) 0.0 (0.0-0.4) th/mm3 Baso # (Auto) 0.2 (0.0-0.2) th/mm3 Comprehensive Metabolic Panel 06/30/18 Range/Units 01:25 Sodium 139 (136-145) meq/L Potassium 5.1 (3.5-5.1) meq/L Chloride 106 (98-107) meq/L Carbon Dioxide 19.7 L (21.0-32.0) meq/L BUN 52 H (7-18) mg/dL Creatinine 2.19 H (0.60-1.30) mg/dL Calcium 8.6 (8.5-10.1) mg/dL AST 19 (15-37) U/L ALT 23 (12-78) U/L Alkaline Phosphatase 84 (45-117) U/L Total Protein 7.5 (6.4-8.2) g/dL Albumin 2.9 L (3.4-5.0) g/dL Intake and Output 06/29/18 06/30/18 06/30/18 22:59 06:59 14:59 Intake Total 240 / 240 Output Total 100 / 100 Balance 140 / 140 Intake: Oral 240 / 240 Output: Urine 100 / 100 Other: Weight 83.5 kg Weight On Admission 84.5 kg Assessment and Plan - Plan Assessment: Patient presents as transfer from [facility] with CHB and junctional escape rhythm, hemodynamically stable in the setting of ADHF, fever, leukocytosis, and CKD stage 3. There is concern for possible bacterial endocarditis in this setting. Given he is hemodynamically stable with junctional escape, I believe at this time it is prudent to have a comprehensive infectious workup prior to considering pacemaker insertion. -CHB, with junctional escape rhythm -ADHF, EF unknown -SIRS criteria (fever, leukocytosis, hypoxemia) -CKD stage 3 -CAD, asymptomatic Recommendations: -ID consultation today -procalcitonin and blood cx's stat -Echo stat, may require DANYELLE -continue transcutaneous pacer pads for now -no AVN blocking agents -furosemide 80mg iv x 1 now and monitor Uo. Only 100cc Uo after 40mg ivp overnight. -start home ASA 81mg daily will continue to follow with you.
[2018-06-30] MEDS: Calcitriol 0.25 MCG Capsule PO SCH (10:36)
[2018-06-30] MEDS: Heparin - SQ 10,000 UNITS/ML Vial SQ SCH ×2 (10:36→20:36)
[2018-06-30] MEDS: Senna/Docusate Sodium 8.6/50 MG Tablet PO SCH ×2 (10:37→20:35)
--- NOTE | 2018-06-30 10:50 | ECHRPT ---
Indication: HEART FAILURE CONCLUSIONS The left ventricular systolic function is hyperdynamic with an estimated ejection fraction in the ra nge of 65- 70%. Normal left ventricular size and wall thickness. No regional wall motion abnormalities are present. Mild thickening of the mitral valve leaflets. Dhblz-as-wzjg mitral valve regurgitation. Diffuse calcification of the aortic valve. There is no evidence of mass/vegetation on the aortic valve prosthesis. Mild to moderate aortic valve stenosis. Aortic valve area is 1.3 cm. Aortic valve mean gradient is 27.3 mmHg. There is trace- mild tricuspid valve regurgitation. The estimated pulmonary arterial pressure is 52 mmHg. BP: / HR: Rhythm: Sinus MEASUREMENTS (Male / Female) Normal Values Technical Quality:Fair 2D ECHO LV Diastolic Diameter PLAX 4.8 cm 4.2 - 5.9 / 3.9 - 5.3 cm LV Systolic Diameter PLAX 2.9 cm IVS Diastolic Thickness 1.1 cm 0.6 - 1.0 / 0.6 - 0.9 cm LVPW Diastolic Thickness 1.0 cm 0.6 - 1.0 / 0.6 - 0.9 cm LV Relative Wall Thickness 0.4 RV Internal Dim ED PLAX 2.9 cm LVOT Diameter 1.8 cm LA Systolic Diameter LX 3.9 cm 3.0 - 4.0 / 2.7 - 3.8 cm LV Ejection Fraction MOD 4C 74.0 % LV Ejection Fraction 4C AL 74.6 % M-MODE Aortic Root Diameter MM 3.1 cm LA Systolic Diameter MM 4.0 cm LA Ao Ratio MM 1.3 AV Cusp Separation MM 1.6 cm DOPPLER AV Peak Velocity 370.3 cm/s AV Peak Gradient 54.9 mmHg AV Mean Gradient 27.3 mmHg AV Velocity Time Integral 62.9 cm LVOT Peak Velocity 176.3 cm/s LVOT Peak Gradient 12.4 mmHg LVOT Velocity Time Integral 32.0 cm AV Area Cont Eq vti 1.3 cm AV Area Cont Eq pk 1.2 cm MV Area PHT 4.7 cm Mitral E Point Velocity 159.0 cm/s Mitral A Point Velocity 91.8 cm/s Mitral E to A Ratio 1.7 LV E' Lateral Velocity 11.1 cm/s Mitral E to LV E' Lateral Ratio 14.3 LV E' Septal Velocity 6.1 cm/s Mitral E to LV E' Septal Ratio 25.9 TR Peak Velocity 324.0 cm/s TR Peak Gradient 42.0 mmHg Right Atrial Pressure 10.0 mmHg Pulmonary Artery Systolic Pressu 52.0 mmHg Right Ventricular Systolic Press 52.0 mmHg PV Peak Velocity 110.0 cm/s PV Peak Gradient 4.8 mmHg FINDINGS LEFT VENTRICLE The left ventricular systolic function is hyperdynamic with an estimated ejection fraction in the ra nge of 65- 70%. Normal left ventricular size. Wall thickness is normal. No regional wall motion abnormalities are present. RIGHT VENTRICLE Normal right ventricular size and systolic function. LEFT ATRIUM The left atrial size is normal. RIGHT ATRIUM The right atrial size is normal. ATRIAL SEPTUM Normal atrial septal thickness without atrial level shunting by limited color doppler interrogation. AORTA The aortic root and proximal ascending aorta are normal in size on limited imaging. MITRAL VALVE Mild thickening of the mitral valve leaflets. Mczft-mk-[id number] mitral valve regurgitation. AORTIC VALVE Trileaflet aortic valve. Diffuse calcification of the aortic valve. There is no evidence of mass/vegetation on the aortic valve prosthesis. Mild to moderate aortic valve stenosis. Aortic valve area is 1.3 cm. Aortic valve mean gradient is 27.3 mmHg. TRICUSPID VALVE Structurally normal tricuspid valve. There is trace- mild tricuspid valve regurgitation. The estimated pulmonary arterial pressure is 52 mmHg. PULMONARY VALVE No pulmonary valve regurgitation or stenosis. VESSELS The inferior vena cava is normal in size. PERICARDIUM No pericardial effusion. Varun Santillan (Electronically Signed) Final Date:30 June 2018 10:48
[2018-06-30] MEDS ORDERED: fentaNYL Citrate Inj 100 MCG/2 ML Ampul ONE (12:11)
--- NOTE | 2018-06-30 12:22 | ECHRPT ---
Indication: SEPSIS CONCLUSIONS Normal left ventricular size and wall thickness. The left ventricular systolic function is normal wi th an estimated ejection fraction in the range of 60-65%. Left ventricular diastolic function parameters a re normal. The left atrial size is cmys-dy-kwtxgtcxal dilated. Mild thickening of the mitral valve leaflets. Fbep-yw-cxgwkgbr mitral valve regurgitation. Bileaflet mitral valve prolapse. No mitral valve stenosis. Mild mitral annular calcification. No aortic valve regurgitation. Moderate aortic valve stenosis. Bioprosthetic aortic valve is noted. No vegetation. Structurally normal tricuspid valve. There is trace tricuspid valve regurgitation. Pulmonary arteria l systolic pressure could not be estimated due to an insufficient tricuspid valve regurgitation doppler jet for measurement. BP: / HR: Rhythm: Technical Quality: Medications Complications Proc. Components The patient was brought to the diagnostic imaging area in a fasting state after o btaining an informed consent. The patient was premedicated with IV Versed and IV Fentanyl. The embedded systems engineer ior pharynx was sprayed with Cetacaine spray and the patient was administered viscous Xylocaine 2 %. The DANYELLE probe was passed into the posterior pharynx , mid-esophagus, distal esophagus, and gastric fundus. DANYELLE was performed at multiple levels. The patient tolerated the procedure well and there were no complications. The patient was transferred to the floor in satisfactory condition.. The DANYELLE probe wa s passed into the posterior pharynx , mid-esophagus, distal esophagus, and gastric fundus.. FINDINGS LEFT VENTRICLE Normal left ventricular size and wall thickness. The left ventricular systolic function is normal wi th an estimated ejection fraction in the range of 60-65%. Left ventricular diastolic function parameters a re normal. RIGHT VENTRICLE Normal right ventricular size and systolic function. LEFT ATRIUM The left atrial size is gizd-cn-xadhyplddl dilated. RIGHT ATRIUM The right atrial size is normal. ATRIAL APPENDAGES Normal left atrial appendage size with no evidence of thrombus formation. ATRIAL SEPTUM Normal atrial septal thickness without atrial level shunting by limited color doppler interrogation. AORTA The aortic root and proximal ascending aorta are not well visualized. The aortic root and proximal ascending aorta are normal in size on limited imaging. MITRAL VALVE Mild thickening of the mitral valve leaflets. Uqia-la-valbtxoq mitral valve regurgitation. Bileaflet mitral valve prolapse. No mitral valve stenosis. Mild mitral annular calcification. AORTIC VALVE No aortic valve regurgitation. Moderate aortic valve stenosis. Bioprosthetic aortic valve is noted. No vegetation. TRICUSPID VALVE Structurally normal tricuspid valve. There is trace tricuspid valve regurgitation. Pulmonary arteria l systolic pressure could not be estimated due to an insufficient tricuspid valve regurgitation doppler jet for measurement. VESSELS The inferior vena cava is normal in size. PULMONARY VALVE The pulmonary valve is not well visualized. PERICADIUM No pericardial effusion. Josiah Elmore MD, FACC (Electronically Signed) Final Date:30 June 2018 12:21
--- NOTE | 2018-06-30 14:28 | MB ---
cc: Valentin Rodriguez MD DATE: 06/30/2018 DATE OF CONSULTATION: 06/30/2018. REQUESTING PHYSICIAN: Varun Santillan MD REASON: Patient with complete heart block and leukocytosis and fever. Likely needs permanent pacemaker. HISTORY OF PRESENT ILLNESS: He is a 72-year-old white male who has a history of aortic valve replacement in 2010. The patient presented to the [facility] in [place] and was felt to be in complete heart block. He was transferred to [facility] for further evaluation. The patient was noted to have fever with temperature of 102 degrees yesterday and white count was elevated at 21.9. The patient notes that he has had a head cold with coughing, which began 2 weeks ago. He notes that he was having pain behind the eyes and the cough was not improving. He took cough medications, but he continued with the cough. He has had no sputum production. He notes having shaking chills before he went to the [facility] for evaluation from the [facility]. Currently, he states that he feels better. Blood cultures were taken this morning. Urinalysis was unremarkable. A chest x-ray was performed and there was interstitial prominence most characteristic of mild interstitial edema. The patient has been having shortness of breath also. He denies recent travels outside of [place] lately. He also denies exposure to unusual pets. The patient is retired. PAST MEDICAL HISTORY: Diabetes mellitus, hypertension, hyperlipidemia, coronary artery disease, chronic heart failure, chronic kidney disease stage III, history of aortic valve replacement in 2010. ALLERGIES: Atorvastatin, HMG-COA REDUCTASE INHIBITOR. MEDICATIONS: 1. Amelia-Colace. 2. Protonix. 3. Oxycodone. 4. Insulin. 5. Calcitriol. 6. DuoNeb. 7. Tylenol p.r.n. SOCIAL HISTORY: Never smoked. Occasional alcohol, approximately monthly. No illicit drugs. FAMILY HISTORY: Noncontributory. REVIEW OF SYSTEMS: All systems have been reviewed and are negative, except for that mentioned in the history of present illness. PHYSICAL EXAMINATION: GENERAL: This is a well-developed male in no acute distress. He is awake and alert and oriented. VITAL SIGNS: Temperature 98.5, BP 132/67, heart rate 60, respirations of 20. HEENT: Head is atraumatic. Extraocular movements grossly intact. Pupils reactive to light. No icterus. No conjunctival erythema. Throat, oropharynx: Moist mucosa. No visible lesions. NECK: Supple and has no adenopathy. LUNGS: Clear breath sounds bilaterally. HEART: Irregular, S1 and S2. No audible murmur. ABDOMEN: Bowel sounds present. Soft, no tenderness appreciated. RECTAL: Not performed. EXTREMITIES: No clubbing, cyanosis or edema. SKIN: No rash. NEUROLOGIC: No gross focal finding. PSYCHIATRIC: Patient calm and cooperative. LABORATORY DATA: WBC 21.9, platelets 298, 65% neutrophils, 26% lymphocytes. BUN 52, creatinine 2.19, estimated GFR 30. LFTs are normal. IMPRESSION: Fever and leukocytosis in a patient who is status aortic valve replacement in 2010. The patient is being evaluated for complete heart block and may be in need of permanent pacemaker. The patient recently developed a cough and a minor headache and worsening shortness of breath. He also noted shaking chills, which occurred yesterday. No other obvious foci based on symptoms to explain the acute fever and leukocytosis. He possibly could have a viral infection as the cause. He has a mild left shift on his CBC. In light of the aortic valve replacement one definitely needs to entertain possibility of bacterial infection, possibly involving the replaced heart valve. The patient had a DANYELLE and there does not appear to be any evidence of endocarditis, but the final report is not yet available. Chest x-ray does not suggest pneumonia and urinalysis is unremarkable. RECOMMENDATIONS: 1. Begin ceftriaxone intravenous empiric. 2. Monitor the blood cultures. 4. Obtain sputum culture if any sputum is coughed up. 5. Monitor white blood cell count. 6. Monitor temperature. If possible, I would await the blood culture results prior to permanent pacemaker. However, if it is emergent, we would have no choice at this point. If he requires emergent permanent pacemaker that would take precedence given the complete heart block. Thank you for this consultation. I will follow the patient's progress along with you and will make further recommendations and followup if necessary. MD ARGENIS Ny/bella/cat , 12:02 PM , 12:19 PM YAQUELIN
--- NOTE | 2018-06-30 14:40 | US ---
EXAM DATE: 06/30/2018 2:36 PM EDT AGE/SEX: 72 years / Male INDICATIONS: Bilateral leg edema. CLINICAL DATA: This is the patient's initial encounter. Patient reports that signs and symptoms have been present for 1 day and indicates a pain score of 0/10. MEDICAL/SURGICAL HISTORY: . Heart block. None. COMPARISON: No prior exams available for comparison. TECHNIQUE: Venous ultrasound of both lower extremities was performed from the inguinal ligament to t he proximal calf. Real-time, color Doppler and spectral tracing, compression and augmentation techni ques were used. FINDINGS: Right Leg: Normal compression of the deep venous system from the inguinal region to the proximal fidelia f. No echogenic clot is seen. Normal response of the venous system to augmentation and respiration. Left Leg: Normal compression of the deep venous system from the inguinal region to the proximal calf . No echogenic clot is seen. Normal response of the venous system to augmentation and respiration. Other: None. CONCLUSION: 1. The study is negative for bilateral lower extremity deep venous thrombosis. Electronically signed by: Gt Decker MD 06/30/2018 2:39 PM EDT
--- NOTE | 2018-06-30 14:58 | US ---
EXAM DATE: 06/30/2018 2:43 PM EDT AGE/SEX: 72 years / Male INDICATIONS: Increased lab values. CLINICAL DATA: This is the patient's initial encounter. Patient reports that signs and symptoms have been present for 1 day and indicates a pain score of 0/10. MEDICAL/SURGICAL HISTORY: . Heart block. None. COMPARISON: No prior exams available for comparison. MEASUREMENTS: Right Kidney:__10.2 x 4.9 x 5.0 cm Left Kidney:__11.6 x 6.3 x 5.0 cm FINDINGS: Right Kidney: No evidence of stone mass or hydronephrosis. Left Kidney: No evidence of stone mass or hydronephrosis. Bladder: Within normal limits given the degree of distension. Other: Gallstones and gallbladder sludge. CONCLUSION: No evidence of hydronephrosis. Electronically signed by: LuisE duardo Whalen MD 06/30/2018 2:56 PM EDT
--- NOTE | 2018-06-30 18:50 | ECG ---
Date Performed: 06/30/2018 Time Performed: 00:16:16 PTAGE: 72 years EKG: Sinus rhythm with borderline 1st degree A-V block Right bundle branch block Possible inferior infarct - age undet ermined Abnormal ECG NO PREVIOUS TRACING DOCTOR: Travis Jackson Interpretating Date/Time 06/30/2018 18:47:27
[2018-06-30 19:37] LABS: Chol/HDL Ratio 7.83 Ratio; HDL Cholesterol 18.5 mg/dL (40.0-60.0)
[2018-06-30 19:40] LABS: Troponin I 0.72 ng/mL (0.02-0.05)
[2018-06-30] MEDS ORDERED: Atropine Inj 1 MG/10 ML Syringe ONE (20:56)
--- NOTE | 2018-06-30 21:31 | CT ---
EXAM DATE: 06/30/2018 9:13 PM EDT AGE/SEX: 72 years / Male INDICATIONS: Shortness of breath. CLINICAL DATA: This is the patient's initial encounter. Patient reports that signs and symptoms have been present for 1 day and indicates a pain score of 2/10. MEDICAL/SURGICAL HISTORY: . Hypertension. Diabetes. CABG. Left hip arthroplasty. RADIATION DOSE: 15.67 CTDI (mGy) COMPARISON: No prior exams available for comparison. TECHNIQUE: Multiple contiguous axial images were obtained through the chest without contrast. Image s were obtained in suspended respiration using multiple row detector helical technique. Using automa rashi exposure control and adjustment of the mA and/or kV according to patient size, radiation dose was kept as low as reasonably achievable to obtain optimal diagnostic quality images. DICOM format imag e data is available electronically for review and comparison. FINDINGS: Patchy consolidation and mild thickening of the interlobular septa seen of both lungs. There are smal l right and tiny left pleural effusions. Mild dependent atelectasis seen of the right lower lobe. No pneumothorax. Scattered mediastinal lymph nodes measuring up to 1 cm in size. Nothing clearly pathologic by size cr iteria. No hilar or axillary lymphadenopathy demonstrated. Patient has had previous median sternotomy and aortic valve replacement. 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 Patchy coronary artery calcification noted. CONCLUSION: 1. Findings probably on the basis of mild failure with patchy consolidation of both lungs and mild t hickening of the interlobular septa as well as small right and tiny left pleural effusions. 2. Right lower lobe consolidation likely compressive/dependent atelectasis. 3. Previous median sternotomy and aortic valve replacement. Nonunion of the manubrial defect. 4. Coronary artery calcification. 5. A few scattered nonspecific upper limits of normal size mediastinal lymph nodes. Electronically signed by: Luis Eduardo Bryan MD 06/30/2018 9:30 PM EDT
[2018-07-01] MEDS: Insulin NovoLIN Regular Correctional Sugar Inj SQ SCH ×5 (00:33→22:08)
[2018-07-01] MEDS ORDERED: Chlorhexidine Gluconate 2% 1 Pack (2 Cloths) TOPICAL PRN (04:00)
[2018-07-01 05:02] LABS: Hematocrit 31.7 % (39.0-51.0); Hemoglobin 10.5 gm/dL (13.0-17.0); Mean Corpuscular HGB Conc 33.2 % (32.0-36.0); Mean Corpuscular Hemoglobin 29.8 pg (27.0-34.0); Mean Corpuscular Volume 89.8 fL (80.0-100.0); Mean Platelet Volume 10.1 fL (7.0-11.0); Platelet Count 305 th/mm3 (150-450); Red Blood Count 3.53 mil/mm3 (4.50-5.90); Red Cell Distribution Width 14.9 % (11.6-17.2); White Blood Count 18.2 th/mm3 (4.0-11.0)
[2018-07-01 05:16] LABS: INR 1.1 Ratio; Prothrombin Time 11.3 sec (9.8-11.6)
[2018-07-01 05:42] LABS: Alanine Aminotransferase 19 U/L (12-78); Albumin 2.6 g/dL (3.4-5.0); Alkaline Phosphatase 76 U/L (45-117); Anion Gap 13 meq/L (5-15); Aspartate Aminotransferase 17 U/L (15-37); Blood Urea Nitrogen 67 mg/dL (7-18); Calcium 8.4 mg/dL (8.5-10.1); Carbon Dioxide 21.3 meq/L (21.0-32.0); Chloride 102 meq/L (98-107); Creatine Kinase 72 U/L (39-308); Glomerular Filtration Rate 25 mL/min (>89); Glucose,Random 218 mg/dL (74-106); Magnesium 2.5 mg/dL (1.5-2.5); Phosphorus 5.2 mg/dL (2.5-4.9); Potassium 4.2 meq/L (3.5-5.1); Sodium 136 meq/L (136-145); Total Protein 7.2 g/dL (6.4-8.2)
[2018-07-01] MEDS: Chlorhexidine Gluconate 2% 1 Pack (2 Cloths) TOPICAL SCH ×2 (06:25→06:26)
--- NOTE | 2018-07-01 08:09 | XR ---
EXAM DATE: 07/01/2018 8:05 AM EDT AGE/SEX: 72 years / Male INDICATIONS: Cough and shortness of breath. CLINICAL DATA: This is the patient's subsequent encounter. Patient reports that signs and symptoms h ave been present for 3 weeks and indicates a pain score of 0/10. MEDICAL/SURGICAL HISTORY: Hypertension. Diabetes mellitus type II. CABG. Aortic valve replacem ent. COMPARISON: C, CHEST 1V SINGLE AP, 06/30/2018. . FINDINGS: Lungs are hypoaerated. There is slightly less interstitial vascular prominence. Heart and mediastinal structures are stable. Median sternotomy wires again noted. CONCLUSION: Hypoaerated lungs with slightly less interstitial vascular prominence. Electronically signed by: Yan Blackwell MD 07/01/2018 8:08 AM EDT
--- NOTE | 2018-07-01 08:38 | P.PNCA ---
Subjective Interval history: Patient seen and examined. No events overnight. Telemetry reveals persistent CHB with junctional escape rhythm with narrow QRS incomplete RBBB morphology. Patient was seen in consultation with infectious disease yesterday who agreed to hold off on PPM pending blood culture results if possible. Physical Exam Vital signs: Vital Signs 06/30/18 12:00 06/30/18 12:27 06/30/18 12:36 Temperature 98.6 F Pulse Rate 76 67 Respiratory Rate 18 Blood Pressure 151/67 H 134/71 Pulse Oximetry 97 94 L 96 06/30/18 14:00 06/30/18 15:00 06/30/18 15:36 Temperature 100.3 F H Pulse Rate 66 61 62 Respiratory Rate 18 17 Blood Pressure 159/67 H 144/60 H Pulse Oximetry 96 97 97 06/30/18 20:00 06/30/18 21:20 07/01/18 00:00 Temperature 98.5 F 98.4 F Pulse Rate 67 60 60 Respiratory Rate 20 14 16 Blood Pressure 157/71 H 151/71 H Pulse Oximetry 95 97 95 07/01/18 03:25 07/01/18 04:00 Temperature Pulse Rate 67 59 L Respiratory Rate 14 16 Blood Pressure 164/62 H Pulse Oximetry 95 Intake & Output 06/30/18 07/01/18 07/01/18 18:59 06:59 18:59 Intake Total 1020 / 1020 680 / 680 Output Total 900 / 900 250 / 250 Balance 120 / 120 430 / 430 Weight 84 kg Intake: IV 100 / 100 Rocephin Inj 1,000 MG In NS Inj 100 / 100 100 ML @ 200 mls/hr IV.SIG Q24H GLENIS Rx#:[id number] Oral 920 / 920 680 / 680 Output: Urine 900 / 900 250 / 250 Other: # Bowel Movements 0 Narrative: GENERAL: AOx3, comfortable appearing, speaking full sentences SKIN: Warm and dry. HEAD: Atraumatic. Normocephalic. EYES: Pupils equal and round. No scleral icterus. No injection or drainage. ENT: No nasal bleeding or discharge. Mucous membranes pink and moist. NECK: Trachea midline. No JVD. CARDIOVASCULAR: Regular rate and rhythm. No murmurs appreciated RESPIRATORY: No accessory muscle use. Clear to auscultation. Breath sounds equal bilaterally. GASTROINTESTINAL: Abdomen soft, non-tender, nondistended. MUSCULOSKELETAL: Extremities without clubbing, cyanosis, or edema. No obvious deformities. NEUROLOGICAL: Awake and alert. No obvious cranial nerve deficits. Normal speech. PSYCHIATRIC: Appropriate mood and affect; insight and judgment normal. Assessment and Plan - Plan Assessment: Patient presents as transfer from [facility] with CHB and junctional escape rhythm, hemodynamically stable in the setting of ADHF, fever, leukocytosis, and CKD stage 3. There was concern for possible bacterial endocarditis in this setting, however transthoracic echocardiogram and transesophageal echocardiogram completed yesterday did not reveal any valvular vegetations. LV systolic function is normal. No adynamic with significant valvular disease. Given he is hemodynamically stable with junctional escape, will hold off on placement of dual-chamber permanent pacemaker pending ID recommendations as we follow blood culture results and further infectious workup. -CHB, with junctional escape rhythm -ADHF, EF unknown -SIRS criteria (fever, leukocytosis, hypoxemia) -CKD stage 3, with SO -Anasarca with lower extremity edema and albumin 2.4 -CAD, asymptomatic Recommendations: -Hold off on PPM placement pending okay with ID as long as he is hemodynamically stable. -continue transcutaneous pacer pads for now -no AVN blocking agents -Nephrology consultation please for SO on CKD -Continue home ASA 81mg daily will continue to follow with you.
--- NOTE | 2018-07-01 09:05 | P.PNCC ---
Subjective Subjective Remarks/Hospital Course: This is a 72-year-old male with a history of prior aortic valve pathology status post an aortic valve replacement in 2010 here at [facility]. He has been seeing his primary care doctor [facility] the [facility] over the last 2 weeks for increasing shortness of breath and lower extremity edema. He was placed on furosemide with some symptomatic relief. Today, he was in clinic and he stated he continued to feel worsening of his shortness of breath today. EKG in clinic demonstrated third-degree heart block and the patient was sent from clinic to the [facility] in [place]. [facility] in [place] admitted the patient, however no electrophysiology or cardiology consultation was available at the [facility], and the [facility] asked [facility] to accept the patient in transfer for workup of his third-degree heart block. Per the [facility] reports, the patient had a ventricular rate in the 30s-40s and was intermittently transcutaneously paced. Upon arrival to our institution, the patient has a ventricular rate of 70s. Repeat EKG still demonstrates that the patient has P waves and QRS complexes, but it does appear that the patient has complete heart block. His QRS complex is narrow, which would suggest that his ventricular rhythm is somewhat junctional in nature, but he clearly has regular P waves which are not associated in any way with his QRS complex. The patient is here still endorses mild shortness of breath. He denies any chest pain. He states that he has not had a recent echocardiogram. Does endorse lower extremity edema. Endorses mild dyspnea on exertion which has been very slowly increasing over the last 2 weeks. Denies orthopnea. Denies PND. Denies fever and chills. He is febrile to 102 here on admission, and other than he states approximately 2-3 weeks ago he felt like he had "head cold", he endorses no other infectious symptoms. He denies any runny nose, cough, congestion. Denies nausea, vomiting, diarrhea, constipation, abdominal pain. The remainder of the review of systems is negative. Dr. Varun Santillan with cardiology has been informed of the patient's admission and has accepted the patient in consultation from the [facility]. 06/30: Currently afebrile. Currently on a Venturi mask 30% satting 92-94%. Some intravascular prominence on chest x-ray this a.m. Was previously on furosemide 40 mg twice daily and spironolactone 25 mg daily for pulmonary edema started 06/22 by his primary care physician. Creatinine currently 2.2. Baseline is 1.4-1.6. Complaining of edema in bilateral lower extremities which is new for him. 2d echocardiogram results pending. Denies chest pain SUBJECTIVE: 07/01: issue of significant bradycardia overnight resolved within seconds. Currently hemodynamically stable. Creatinine increased to 2.6 overnight. Currently on 4 L nasal cannula. Objective Vital Signs / I&O: Vital Signs 06/30/18 12:00 06/30/18 12:27 06/30/18 12:36 Temperature 98.6 F Pulse Rate 76 67 Respiratory Rate 18 Blood Pressure 151/67 H 134/71 Pulse Oximetry 97 94 L 96 06/30/18 14:00 06/30/18 15:00 06/30/18 15:36 Temperature 100.3 F H Pulse Rate 66 61 62 Respiratory Rate 18 17 Blood Pressure 159/67 H 144/60 H Pulse Oximetry 96 97 97 06/30/18 20:00 06/30/18 21:20 07/01/18 00:00 Temperature 98.5 F 98.4 F Pulse Rate 67 60 60 Respiratory Rate 20 14 16 Blood Pressure 157/71 H 151/71 H Pulse Oximetry 95 97 95 07/01/18 03:25 07/01/18 04:00 Temperature Pulse Rate 67 59 L Respiratory Rate 14 16 Blood Pressure 164/62 H Pulse Oximetry 95 Intake & Output 06/30/18 07/01/18 07/01/18 18:59 06:59 18:59 Intake Total 1020 / 1020 680 / 680 Output Total 900 / 900 250 / 250 Balance 120 / 120 430 / 430 Weight 84 kg Intake: IV 100 / 100 Rocephin Inj 1,000 MG In NS Inj 100 / 100 100 ML @ 200 mls/hr IV.SIG Q24H GLENIS Rx#:[id number] Oral 920 / 920 680 / 680 Output: Urine 900 / 900 250 / 250 Other: # Bowel Movements 0 Result Diagrams: 07/01/18 04:34 07/01/18 04:34 Other Results: Microbiology 06/30/18 15:30 Nasal Wash Influenza Types A,B Antigen - Final Negative for FLU A and B antigen Infection due to influenza A or B cannot be ruled out since the antigen present in the sample may be below the detection limit of the test. Imaging: Abdomen/Bladder Ultrasound 06/30/18 00:00 CONCLUSION: No evidence of hydronephrosis. Chest CT 06/30/18 00:00 CONCLUSION: 1. Findings probably on the basis of mild failure with patchy consolidation of both lungs and mild thickening of the interlobular septa as well as small right and tiny left pleural effusions. 2. Right lower lobe consolidation likely compressive/dependent atelectasis. 3. Previous median sternotomy and aortic valve replacement. Nonunion of the manubrial defect. 4. Coronary artery calcification. 5. A few scattered nonspecific upper limits of normal size mediastinal lymph nodes. Venous Doppler Study 06/30/18 00:00 CONCLUSION: 1. The study is negative for bilateral lower extremity deep venous thrombosis. Chest X-Ray 06/30/18 00:53 CONCLUSION: Interstitial prominence most characteristic of mild interstitial edema. Previous sternotomy. Chest X-Ray 07/01/18 07:58 CONCLUSION: Hypoaerated lungs with slightly less interstitial vascular prominence. Objective Remarks: GENERAL: 72-year-old male currently resting in bed in mild respiratory distress SKIN: Warm and dry. HEAD: Atraumatic. Normocephalic. EYES: Pupils equal and round about 3 mm bilaterally and reactive. No scleral icterus. No injection or drainage. ENT: No nasal bleeding or discharge. Mucous membranes pink and moist. NECK: Trachea midline. No JVD. CARDIOVASCULAR: Third-degree heart block on telemetry. No obvious murmurs are appreciated. RESPIRATORY: Few fine crackles appreciated bilaterally right greater than left. No wheezing.. Symmetrical excursion. GASTROINTESTINAL: Abdomen soft, non-tender, nondistended. Hypoactive bowel sounds are appreciated. MUSCULOSKELETAL: Extremities with trace to 1+ bilateral lower extremity edema. No obvious deformities. NEUROLOGICAL: Awake and alert. No obvious cranial nerve deficits. Motor grossly within normal limits. Five out of 5 muscle strength in the arms and legs. Normal speech. PSYCHIATRIC: Appropriate mood and affect; insight and judgment appears normal Assessment and Plan - Assessment and Plan Plan: Neuro/Psych: History of sensorineural hearing loss Acetaminophen 650 mg p.o. every 6 hours as needed fever Oxycodone 5 mg p.o. every 4 hours as needed pain 1 through 5 Morphine sulfate 2 mg IV every 2 hours as needed pain 6 through 10 CV: Third-degree heart block History of first-degree AV block Elevated troponin Elevated BNP Congestive heart failure unknown etiology History of essential hypertension Hyperlipidemia/triglyceridemia History of aortic valve replacement Dr. Santillan/cardiology consult Continue on Zoll Pads - if any symptomatic bradycardia, low threshold for transvenous pacer placement. DANYELLE revealed EF 6065%. LAE. Moderate left ear. PA P 52 mmHg. Troponin peaked at 0.77. Home medications are metoprolol tartrate 50 mg twice daily and amlodipine 10 mg daily. This been held Holding aspirin 81 mg daily Holding fish oil 1000 mg twice daily for dyslipidemia. We will place on furosemide 20 mg IV twice daily. Previously on 40 mg twice daily and Spironolactone 25 mg daily Resp: Acute hypoxemic respiratory failure Currently on Venturi mask 50% to maintain saturations greater than equal 92% On lung hyperinflation protocol with a EZPAP/PEP therapy Albuterol/ipratropium aerosols every 6 hours with albuterol aerosols every 2 hours as needed for dyspnea Received 40 mg IV furosemide overnight. Previously on furosemide 40 mg p.o. daily and Spironolactone 25 mg daily Chest x-ray on admission revealed mild interstitial prominence likely pulmonary congestion CT thorax 06/30 - mild failure with patchy consolidation of both lungs and mild thickening of the interlobular septa as well as small right and tiny left pleural effusions. Right lower lobe consolidation likely compressive/dependent atelectasis. Previous median sternotomy and aortic valve replacement. Nonunion of the manubrial defect. Coronary artery calcification. A few scattered nonspecific upper limits of normal size mediastinal lymph nodes GI: Hypoalbuminemia History of splenectomy Currently cardiac/ADA diet Pantoprazole for GI prophylaxis Docusate sodium/senna 1 tablet twice daily for bowel regimen : Claire catheter if indicated for accurate I's and O's in a critically ill patient Endo: Diabetes mellitus type 2 Currently on insulin Novulin R with Accu-Cheks every before meals/at bedtime hours to maintain euglycemia/medium protocol Holding metformin 5 mg twice daily/home medication. Normally on insulin glargine 28 units at night and insulin aspart 5 units a.m., 8 units for lunch and 8 units at supper We will start insulin glargine 8 units subcu twice daily TSH was 0.711 Renal: Acute kidney injury in the setting of chronic kidney disease stage IIIa Baseline creatinine defined as 1.4-1.6. Currently 2.6 Avoid nephrotoxic medications Recheck creatinine in a.m. 07/01 Ultrasound revealed no hydronephrosis Urine eosinophils negative FENA was 0.2. Urine sodium was around 30. Urine sodium usually around 75 with furosemide use. So despite furosemide use probably likely prerenal Nephrology consult was at 6:30 AM for evaluation Heme: Leukocytosis Normocytic anemia History of ITP Monitor CBC daily. Follow trends. No indication for transfusion of blood products at this time ID: Acute pyrexia History of RF Currently afebrile this a.m. Low threshold for infectious workup Negative influenza A and B 06/30 pending blood cultures 2. UA negative Negative Doppler bilateral lower extremities with fever We will also order a pro-calcitonin this a.m. elevated at 1.23 MSK: History of osteoarthritis of hip PT evaluate and treat FEN: Replace electrolytes as clinically indicated Access -Utilize peripheral IV. Central line if indicated Prophylaxis -GI -pantoprazole -DVT-SCD/heparin subcu Level 3 follow-up
[2018-07-01] MEDS: Heparin - SQ 10,000 UNITS/ML Vial SQ SCH ×2 (09:35→22:07)
[2018-07-01] MEDS: Senna/Docusate Sodium 8.6/50 MG Tablet PO SCH ×2 (09:35→22:08)
[2018-07-01] MEDS: Calcitriol 0.25 MCG Capsule PO SCH (09:35)
[2018-07-01] MEDS: amLODIPine 5 MG Tablet PO SCH (09:36)
[2018-07-01] MEDS: Insulin Detemir Inj 1,000 UNIT/10 ML Vial SQ SCH ×2 (09:37→22:07)
--- NOTE | 2018-07-01 12:03 | P.PNID ---
Subjective Remarks: Patient is sitting up in a bedside chair. Notes that his cough is better. No sputum production. Feels that his coughing gets worse when he lays flat. Denies chills. Denies chest pain. Blood cultures no growth in 1 day. DANYELLE did not reveal any vegetation. White blood cell count is lower. Patient is reported to to have increased white blood cell count for some time. He is a 72-year-old white male who has a history of aortic valve replacement in 2010. The patient presented to the [facility] in [place] and was felt to be in complete heart block. He was transferred to [facility] for further evaluation. The patient was noted to have fever with temperature of 102 degrees yesterday and white count was elevated at 21.9. The patient notes that he has had a head cold with coughing, which began 2 weeks ago. He notes that he was having pain behind the eyes and the cough was not improving. He took cough medications, but he continued with the cough. He has had no sputum production. He notes having shaking chills before he went to the [facility] for evaluation from the [facility]. Currently, he states that he feels better. Blood cultures were taken this morning. Urinalysis was unremarkable. A chest x-ray was performed and there was interstitial prominence most characteristic of mild interstitial edema. The patient has been having shortness of breath also. Past Medical History: PAST MEDICAL HISTORY: Diabetes mellitus, hypertension, hyperlipidemia, coronary artery disease, chronic heart failure, chronic kidney disease stage III, history of aortic valve replacement in 2010. Allergies/Adverse Reactions: Allergies Hgolpmj-Rsj-Ott Reductase Inhibitor Allergy (Severe, Verified 04/12/18 05:50) muscle weakness atorvastatin Allergy (Mild, Verified 04/12/18 05:50) Objective Vital Signs 06/30/18 12:00 06/30/18 12:27 06/30/18 12:36 Temperature 98.6 F Pulse Rate 76 67 Respiratory Rate 18 Blood Pressure 151/67 H 134/71 Pulse Oximetry 97 94 L 96 06/30/18 14:00 06/30/18 15:00 06/30/18 15:36 Temperature 100.3 F H Pulse Rate 66 61 62 Respiratory Rate 18 17 Blood Pressure 159/67 H 144/60 H Pulse Oximetry 96 97 97 06/30/18 20:00 06/30/18 21:20 07/01/18 00:00 Temperature 98.5 F 98.4 F Pulse Rate 67 60 60 Respiratory Rate 20 14 16 Blood Pressure 157/71 H 151/71 H Pulse Oximetry 95 97 95 07/01/18 03:25 07/01/18 04:00 07/01/18 07:00 Temperature 98.7 F Pulse Rate 67 59 L 74 Respiratory Rate 14 16 22 Blood Pressure 164/62 H 160/72 H Pulse Oximetry 95 97 07/01/18 09:16 07/01/18 11:00 Temperature 98.7 F Pulse Rate 74 72 Respiratory Rate 17 16 Blood Pressure 152/69 H Pulse Oximetry 96 97 Intake & Output 06/30/18 07/01/18 07/01/18 18:59 06:59 18:59 Intake Total 1020 / 1020 680 / 680 Output Total 900 / 900 250 / 250 Balance 120 / 120 430 / 430 Weight 84 kg Intake: IV 100 / 100 Rocephin Inj 1,000 MG In NS Inj 100 / 100 100 ML @ 200 mls/hr IV.SIG Q24H [facility], [facility]1983 Rx#:[id number] Oral 920 / 920 680 / 680 Output: Urine 900 / 900 250 / 250 Other: # Bowel Movements 0 06/30/18 09:55 Blood - Peripheral Aerobic Blood Culture - Preliminary No growth in 1 day 06/30/18 09:55 Blood - Peripheral Anaerobic Blood Culture - Preliminary No growth in 1 day 06/30/18 09:50 Blood - Peripheral Aerobic Blood Culture - Preliminary No growth in 1 day 06/30/18 09:50 Blood - Peripheral Anaerobic Blood Culture - Preliminary No growth in 1 day 06/30/18 15:30 Nasal Wash Influenza Types A,B Antigen - Final Negative for FLU A and B antigen Infection due to influenza A or B cannot be ruled out since the antigen present in the sample may be below the detection limit of the test. Lab - Hematology Results 06/30/18 07/01/18 01:25 04:34 WBC 21.9 H 18.2 H RBC 3.77 L 3.53 L Hgb 10.9 L 10.5 L Hct 33.7 L 31.7 L MCV 89.4 89.8 MCH 28.8 29.8 MCHC 32.3 33.2 RDW 14.7 14.9 Plt Count 298 305 MPV 10.5 10.1 Prelim Diff (Auto) Slide review pending Neut % (Auto) 65.6 Lymph % (Auto) 26.3 [place] % (Auto) 7.2 Eos % (Auto) 0.0 Baso % (Auto) 0.9 Neut # (Auto) 14.3 H Lymph # (Auto) 5.8 H [place] # (Auto) 1.6 H Eos # (Auto) 0.0 Baso # (Auto) 0.2 WBC Differential Manual diff final Seg Neuts % (Manual) 78 H Lymphocytes % (Manual) 19 Monocytes % (Manual) 3 Abs Neuts (Manual) 17.1 H Differential Comment . Platelet Estimate Normal Platelet Morphology Normal Ovalocytes 1+ H Acanthocytes (Spur) Occ H Keratocytes Occ H Lab - Chemistry Results 06/30/18 06/30/18 06/30/18 01:25 01:25 01:25 Sodium 139 Potassium 5.1 Chloride 106 Carbon Dioxide 19.7 L Anion Gap 13 BUN 52 H Creatinine 2.19 H Estimated GFR 30 L POC Glucose Random Glucose 155 H Osmolality 305 H Lactic Acid 1.3 Calcium 8.6 Phosphorus 3.9 Magnesium 2.4 Total Bilirubin 0.8 AST 19 ALT 23 Alkaline Phosphatase 84 Total Creatine Kinase 49 Troponin I 0.11 H B-Natriuretic Peptide 1082 H Total Protein 7.5 Albumin 2.9 L Triglycerides Cholesterol LDL Cholesterol, Calc HDL Cholesterol Cholesterol/HDL Ratio Procalcitonin TSH 0.711 Free T4 1.45 06/30/18 06/30/18 06/30/18 01:29 06:13 07:12 Sodium Potassium Chloride Carbon Dioxide Anion Gap BUN Creatinine Estimated GFR POC Glucose 165 H 155 H Random Glucose Osmolality Lactic Acid Calcium Phosphorus Magnesium Total Bilirubin AST ALT Alkaline Phosphatase Total Creatine Kinase Troponin I 0.64 H* B-Natriuretic Peptide Total Protein Albumin Triglycerides Cholesterol LDL Cholesterol, Calc HDL Cholesterol Cholesterol/HDL Ratio Procalcitonin TSH Free T4 06/30/18 06/30/18 06/30/18 11:24 12:15 14:20 Sodium Potassium Chloride Carbon Dioxide Anion Gap BUN Creatinine Estimated GFR POC Glucose 135 H Random Glucose Osmolality Lactic Acid Calcium Phosphorus Magnesium Total Bilirubin AST ALT Alkaline Phosphatase Total Creatine Kinase Troponin I 0.77 H* B-Natriuretic Peptide Total Protein Albumin Triglycerides Cholesterol LDL Cholesterol, Calc HDL Cholesterol Cholesterol/HDL Ratio Procalcitonin 1.23 H TSH Free T4 09/13/18 09/13/18 09/13/18 17:44 18:33 22:46 Sodium Potassium Chloride Carbon Dioxide Anion Gap BUN Creatinine Estimated GFR POC Glucose 240 H 261 H Random Glucose Osmolality Lactic Acid Calcium Phosphorus Magnesium Total Bilirubin AST ALT Alkaline Phosphatase Total Creatine Kinase Troponin I 0.72 H* B-Natriuretic Peptide Total Protein Albumin Triglycerides 181 H Cholesterol 145 LDL Cholesterol, Calc 90 HDL Cholesterol 18.5 L Cholesterol/HDL Ratio 7.83 Procalcitonin TSH Free T4 07/01/18 07/01/18 04:34 11:14 Sodium 136 Potassium 4.2 D Chloride 102 Carbon Dioxide 21.3 Anion Gap 13 BUN 67 H Creatinine 2.60 H Estimated GFR 25 L POC Glucose 324 H Random Glucose 218 H Osmolality Lactic Acid Calcium 8.4 L Phosphorus 5.2 H D Magnesium 2.5 Total Bilirubin 0.7 AST 17 ALT 19 Alkaline Phosphatase 76 Total Creatine Kinase 72 Troponin I B-Natriuretic Peptide Total Protein 7.2 Albumin 2.6 L Triglycerides Cholesterol LDL Cholesterol, Calc HDL Cholesterol Cholesterol/HDL Ratio Procalcitonin TSH Free T4 Imaging: ITS Impressions Abdomen/Bladder Ultrasound 06/30/18 00:00 CONCLUSION: No evidence of hydronephrosis. Chest CT 06/30/18 00:00 CONCLUSION: 1. Findings probably on the basis of mild failure with patchy consolidation of both lungs and mild thickening of the interlobular septa as well as small right and tiny left pleural effusions. 2. Right lower lobe consolidation likely compressive/dependent atelectasis. 3. Previous median sternotomy and aortic valve replacement. Nonunion of the manubrial defect. 4. Coronary artery calcification. 5. A few scattered nonspecific upper limits of normal size mediastinal lymph nodes. Venous Doppler Study 06/30/18 00:00 CONCLUSION: 1. The study is negative for bilateral lower extremity deep venous thrombosis. Chest X-Ray 07/01/18 07:58 CONCLUSION: Hypoaerated lungs with slightly less interstitial vascular prominence. Physical Exam: PHYSICAL EXAMINATION: GENERAL: Awake and alert and oriented. HEENT: Head is atraumatic. Extraocular movements grossly intact. Pupils reactive to light. No icterus. No conjunctival erythema. Throat, oropharynx: Moist mucosa. No visible lesions. NECK: Supple without adenopathy. LUNGS: Decreased breath sounds. HEART: Irregular, S1 and S2. No audible murmur. ABDOMEN: Bowel sounds present. Soft, no tenderness appreciated. EXTREMITIES: No clubbing, cyanosis or edema. SKIN: No rash. NEUROLOGIC: No gross focal finding. PSYCHIATRIC: Calm and cooperative. Assessment and Plan - Plan IMPRESSION: Fever and leukocytosis. Questionable etiology. Nonproductive cough. Interstitial infiltrates on chest x-ray. Possible atypical pneumonia versus viral etiology. Complete heart block. Aortic valve replacement status. RECOMMENDATIONS: 1. Continue ceftriaxone intravenous. I want to avoid Cipro and Levaquin in light of complete heart block. 2. Monitor the blood cultures. 4. Obtain sputum culture if any sputum is coughed up. 5. Obtain mycoplasma serology. 6. Monitor white blood cell count. 7. Monitor temperature. Discussed with Dr. Varun Santillan regarding holding off on permanent pacemaker until cultures negative. I would be off this weekend. Dr. Unruly Dior covering.
--- NOTE | 2018-07-01 13:15 | P.CONNP ---
<Zuleika Vasquez - Last Filed: 07/01/18 12:43> History of Present Illness Service: Nephrology Consult date: 07/01/18 Requesting Physician: Yosi Gonzalez Reason for Consult: Elevated Bun and creatinine, Heart block Primary Care Provider: Hussien Morgan MD, PhD Chief Complaint: fatigue, sob History of Present Illness: Patient is a 72 year old male with past medical history of Congestive heart failure, coronary artery disease, hyperlipidemia, diabetes, and chronic kidney disease stage 3. Has been seen by his primary care doctor at the [facility] over the last 2 weeks for increasing shortness of breath and lower extremity edema. EKG in clinic demonstrated third-degree heart block and the patient was sent from clinic to the [facility] in [place]. [facility] in [place] admitted the patient, however no electrophysiology or cardiology consultation was available at the [facility]. Patient was then transferred to [place] for further evaluation. Patient is in complete heart block. Nephrology is consulted for elevated renal indices withe a creatinine of 2.19 on admission and 2.60 today. Patient reports history of chronic kidney disease but does not know baseline creatinine. Per records creatinine at 1.4 in April of 2011. Reports some mild shortness of breath, denies chest pain, nausea, vomiting, or loose stools. Has bilateral lower extremity edema. PMFSH - History History Provided By: Patient - Family History Family History: Family History (Last Reviewed 07/01/18 @ 12:33 by Jaren Sommers, PT) Mother Pacemaker - Tobacco History Second Hand Smoke Exposure: No Tobacco Use In Past 30 Days: No Smoking Status: Never smoker - Alcohol History How Often Do You Have a Drink Containing Alcohol: Monthly or less - Substance Use History Substance History: No History of Abuse - Immunization History Tetanus Immunization: <5 Years Hx Influenza Vaccine This Season: No Medications and Allergies Allergies Allergy/AdvReac Type Severity Reaction Status Date / Time [id number] Reductase Allergy Severe muscle Verified 04/12/18 05:50 Inhibitor weakness atorvastatin Allergy Mild Verified 04/12/18 05:50 Home Medications Medication Instructions Recorded Confirmed Type Cinnamon BID 06/30/18 History Tylenol PM Extra Strength HS 06/30/18 History amlodipine 10 mg PO DAILY 06/30/18 06/30/18 History aspirin PO BID 06/30/18 History calcitriol DAILY 06/30/18 History coenzyme Q10 [CoQ-10] 100 mg PO DAILY 06/30/18 06/30/18 History furosemide 40 mg PO BID 06/30/18 06/30/18 History glucosamine sulfate BID 06/30/18 History insulin aspart U-100 [Novolog 5 unit SUB-Q AC BREAKFAST 06/30/18 06/30/18 History U-100 Insulin aspart] insulin aspart U-100 [Novolog 8 SUB-Q AC DINNER 06/30/18 History U-100 Insulin aspart] insulin aspart U-100 [Novolog 8 SUB-Q AC LUNCH 06/30/18 History U-100 Insulin aspart] insulin glargine [Lantus U-100 28 SUB-Q HS 06/30/18 History Insulin] metformin DAILY 06/30/18 History metoprolol tartrate 50 mg PO BID 06/30/18 06/30/18 History multivitamin DAILY 06/30/18 History omega 1-pzn-pbl-fish oil [Fish Oil] 1,200 PO BID 06/30/18 History spironolactone 25 mg PO DAILY 06/30/18 06/30/18 History Active Medications: Active Medications Acetaminophen (Tylenol) 650 mg PO Q6H PRN PRN Reason: TEMPERATURE > 100 F Last Admin: 06/30/18 20:35 Dose: 650 mg Al Hydroxide/Mg Hydroxide (Milk Of Hannah Mathis) 30 ml PO Q12H PRN PRN Reason: Mild Constipation Albuterol (Duoneb Neb ([facility])) 1 ampul NEB Q6HR [facility] Last Admin: 07/01/18 09:14 Dose: 1 ampul Albuterol (Albuterol Neb (Prn)) 2.5 mg NEB Q2HR NEB PRN PRN Reason: DYSPNEA Amlodipine Besylate (Norvasc) 5 mg PO DAILY [facility] Last Admin: 07/01/18 09:36 Dose: 5 mg Aspirin (Ecotrin) 81 mg PO DAILY [facility] Last Admin: 07/01/18 09:34 Dose: 81 mg Bisacodyl (Dulcolax Supp) 10 mg RECTAL DAILY PRN PRN Reason: SEVERE CONSITIPATION Calcitriol (Rocaltrol) 0.25 mcg PO DAILY [facility] Last Admin: 07/01/18 09:35 Dose: 0.25 mcg Chlorhexidine Gluconate (Chlorhexidine 2% Cloth) 3 pack TOPICAL DAILY@0400 [facility] Stop: 07/05/18 03:59 Last Admin: 07/01/18 06:25 Dose: 3 pack Chlorhexidine Gluconate (Chlorhexidine 2% Cloth) 3 pack TOPICAL DAILY@0400 PRN PRN Reason: Extra cloth needed Stop: 07/05/18 03:59 Chlorhexidine Gluconate (Chlorhexidine 2% Cloth) 3 pack TOPICAL DAILY@0400 PRN PRN Reason: Extra cloth needed Stop: 07/06/18 03:59 Chlorhexidine Gluconate (Chlorhexidine 2% Cloth) 3 pack TOPICAL DAILY@0400 [facility] Stop: 07/06/18 03:59 Last Admin: 07/01/18 06:26 Dose: Not Given Dextrose (D50w Vial) 50 ml IV.PUSH UNSCH PRN PRN Reason: PER HYPOGLYCEMIA PROTOCOL Glucagon (Glucagon Inj) 1 mg OTHER PRN PRN PRN Reason: for Hypoglycemia Protocol Heparin Sodium (Porcine) (Heparin Inj) 5,000 units SQ Q12H [facility] Last Admin: 07/01/18 09:35 Dose: 5,000 units Ceftriaxone Sodium 1,000 mg/ (Sodium Chloride) 100 mls @ 200 mls/hr IV.SIG Q24H [facility] Last Admin: 07/01/18 12:06 Dose: 200 mls/hr Insulin Detemir (Levemir Inj) 8 unit SQ BID [facility] Last Admin: 07/01/18 09:37 Dose: 8 unit Insulin Human Regular (Novolin R Correctional Sugar Inj) 0 units SQ ACHS [facility]; Protocol Last Admin: 07/01/18 12:06 Dose: 10 units Lactulose (Lactulose Liq) 30 ml PO DAILY PRN PRN Reason: SEVERE CONSITIPATION Magnesium Oxide (Mag-Ox) 800 mg PO UNSCH PRN PRN Reason: For Magnesium 1.2 - 1.6 mg/dL Morphine Sulfate (Morphine Inj) 2 mg IV.PUSH Q2H PRN PRN Reason: PAIN SCALE 6 TO 10 Ondansetron HCl (Zofran Inj) 4 mg IV.PUSH Q6H PRN PRN Reason: NAUSEA OR VOMITING Oxycodone HCl (Roxicodone) 5 mg PO Q4H PRN PRN Reason: Pain 1-5 Pantoprazole Sodium (Protonix) 40 mg PO DAILY [facility] Last Admin: 07/01/18 09:35 Dose: 40 mg Senna/Docusate Sodium (Amelia-Colace) 1 tab PO BID [facility] Last Admin: 07/01/18 09:35 Dose: 1 tab Sennosides (Senokot) 17.2 mg PO Q12H PRN PRN Reason: Moderate Constipation Sodium Chloride (Ns Flush) 2 ml IV.FLUSH BID [facility] Last Admin: 07/01/18 09:36 Dose: 2 ml Sodium Chloride (Ns Flush) 2 ml IV.FLUSH PRN PRN PRN Reason: FLUSH AFTER USING IV ACCESS Zolpidem Tartrate (Ambien) 10 mg PO HS PRN PRN Reason: SLEEP Last Admin: 06/30/18 22:45 Dose: 10 mg Exam Vital signs: Vital Signs 06/30/18 14:00 06/30/18 15:00 06/30/18 15:36 Temperature 100.3 F H Pulse Rate 66 61 62 Respiratory Rate 18 17 Blood Pressure 159/67 H 144/60 H Pulse Oximetry 96 97 97 06/30/18 20:00 06/30/18 21:20 07/01/18 00:00 Temperature 98.5 F 98.4 F Pulse Rate 67 60 60 Respiratory Rate 20 14 16 Blood Pressure 157/71 H 151/71 H Pulse Oximetry 95 97 95 07/01/18 03:25 07/01/18 04:00 07/01/18 07:00 Temperature 98.7 F Pulse Rate 67 59 L 74 Respiratory Rate 14 16 22 Blood Pressure 164/62 H 160/72 H Pulse Oximetry 95 97 07/01/18 09:16 07/01/18 11:00 Temperature 98.7 F Pulse Rate 74 72 Respiratory Rate 17 16 Blood Pressure 152/69 H Pulse Oximetry 96 97 Intake & Output 06/30/18 07/01/18 07/01/18 18:59 06:59 18:59 Intake Total 1020 / 1020 680 / 680 Output Total 900 / 900 250 / 250 Balance 120 / 120 430 / 430 Weight 84 kg Intake: IV 100 / 100 Rocephin Inj 1,000 MG In NS Inj 100 / 100 100 ML @ 200 mls/hr IV.SIG Q24H [facility] Rx#:[id number] Oral 920 / 920 680 / 680 Output: Urine 900 / 900 250 / 250 Other: # Bowel Movements 0 Narrative: GENERAL: Alert and oriented. SKIN: Warm and dry. HEAD: Normocephalic. EYES: No scleral icterus. No injection or drainage. NECK: Supple, trachea midline. No JVD or lymphadenopathy. CARDIOVASCULAR: Irregular rate and rhythm without murmurs, gallops, or rubs. RESPIRATORY: Breath sounds equal bilaterally. No accessory muscle use. GASTROINTESTINAL: Abdomen soft, non-tender, nondistended. MUSCULOSKELETAL: No cyanosis, bilateral lower extremity edema. BACK: Nontender without obvious deformity. No CVA tenderness. Results - Lab Results 07/01/18 04:34 07/01/18 04:34 Most recent lab results Calcium 8.4 mg/dL (8.5-10.1) L 07/01/18 04:34 Phosphorus 5.2 mg/dL (2.5-4.9) H D 07/01/18 04:34 Magnesium 2.5 mg/dL (1.5-2.5) 07/01/18 04:34 - Image Kidney/bladder ultrasound: report reviewed Assessment and Plan - Assessment (1) Acute kidney injury Code(s): N17.9 - Acute kidney failure, unspecified Status: Acute Plan: Acute kidney injury with creatinine of 2.60 on day of consult. FeNa at 0.15 % suggestive of ATN but as patient was on diuretics can be greater than 0.1 % SO possibly pre renal vs ATN from decreased cardiac output/ third spacing/ infection History of chronic kidney disease with mild proteinuria possibly from diabetic nephropathy Baseline creatinine not available but creatinine noted to be 1.20 April 2011 Renal ultrasound with no evidence of stone, masses or hydronephrosis Plan Monitor strict I+O Avoid nephrotoxins including IV contrast and aminoglycosides. Continue calcitriol Plan for pacemaker placement when cultures are negative, thus far negative Will monitor urinary output and BMP SPEP ordered. Labs in AM (2) Anemia Code(s): D64.9 - Anemia, unspecified Status: Acute Plan: Hemoglobin stable at 10.5 Most likely from chronic disease (3) Complete heart block by electrocardiogram Code(s): I44.2 - Atrioventricular block, complete Status: Acute Plan: Plan for pacemaker when cultures are negative (4) Sepsis Code(s): A41.9 - Sepsis, unspecified organism Status: Acute Plan: ID consulted and cultures pending On antibiotics, renal dose as appropriate <Larry Acevedo - Last Filed: 07/01/18 15:36> History of Present Illness Primary Care Provider: Hussein Morgan MD, PhD [facility] - Family History Family History: Family History (Last Reviewed 07/01/18 @ 12:33 by Jaren Sommers, STEPHANIE) Mother Pacemaker Medications and Allergies Active Medications: Active Medications Acetaminophen (Tylenol) 650 mg PO Q6H PRN PRN Reason: TEMPERATURE > 100 F Last Admin: 06/30/18 20:35 Dose: 650 mg Al Hydroxide/Mg Hydroxide (Milk Of Hannah Liq) 30 ml PO Q12H PRN PRN Reason: Mild Constipation Albuterol (Duoneb Neb (Eyad)) 1 ampul NEB Q6HR [facility] Last Admin: 07/01/18 14:48 Dose: 1 ampul Albuterol (Albuterol Neb (Prn)) 2.5 mg NEB Q2HR NEB PRN PRN Reason: DYSPNEA Amlodipine Besylate (Norvasc) 5 mg PO DAILY [facility] Last Admin: 07/01/18 09:36 Dose: 5 mg Aspirin (Ecotrin) 81 mg PO DAILY [facility] Last Admin: 07/01/18 09:34 Dose: 81 mg Bisacodyl (Dulcolax Supp) 10 mg RECTAL DAILY PRN PRN Reason: SEVERE CONSITIPATION Calcitriol (Rocaltrol) 0.25 mcg PO DAILY [facility] Last Admin: 07/01/18 09:35 Dose: 0.25 mcg Chlorhexidine Gluconate (Chlorhexidine 2% Cloth) 3 pack TOPICAL DAILY@0400 [facility] Stop: 07/05/18 03:59 Last Admin: 07/01/18 06:25 Dose: 3 pack Chlorhexidine Gluconate (Chlorhexidine 2% Cloth) 3 pack TOPICAL DAILY@0400 PRN PRN Reason: Extra cloth needed Stop: 07/05/18 03:59 Chlorhexidine Gluconate (Chlorhexidine 2% Cloth) 3 pack TOPICAL DAILY@0400 PRN PRN Reason: Extra cloth needed Stop: 07/06/18 03:59 Chlorhexidine Gluconate (Chlorhexidine 2% Cloth) 3 pack TOPICAL DAILY@0400 [facility] Stop: 07/06/18 03:59 Last Admin: 07/01/18 06:26 Dose: Not Given Dextrose (D50w Vial) 50 ml IV.PUSH UNSCH PRN PRN Reason: PER HYPOGLYCEMIA PROTOCOL Glucagon (Glucagon Inj) 1 mg OTHER PRN PRN PRN Reason: for Hypoglycemia Protocol Heparin Sodium (Porcine) (Heparin Inj) 5,000 units SQ Q12H [facility] Last Admin: 07/01/18 09:35 Dose: 5,000 units Ceftriaxone Sodium 1,000 mg/ (Sodium Chloride) 100 mls @ 200 mls/hr IV.SIG Q24H [facility] Last Infusion: 07/01/18 12:47 Dose: Infused Insulin Detemir (Levemir Inj) 8 unit SQ BID [facility] Last Admin: 07/01/18 09:37 Dose: 8 unit Insulin Human Regular (Novolin R Correctional Sugar Inj) 0 units SQ ACHS [facility]; Protocol Last Admin: 07/01/18 12:06 Dose: 10 units Lactulose (Lactulose Liq) 30 ml PO DAILY PRN PRN Reason: SEVERE CONSITIPATION Magnesium Oxide (Mag-Ox) 800 mg PO UNSCH PRN PRN Reason: For Magnesium 1.2 - 1.6 mg/dL Morphine Sulfate (Morphine Inj) 2 mg IV.PUSH Q2H PRN PRN Reason: PAIN SCALE 6 TO 10 Ondansetron HCl (Zofran Inj) 4 mg IV.PUSH Q6H PRN PRN Reason: NAUSEA OR VOMITING Oxycodone HCl (Roxicodone) 5 mg PO Q4H PRN PRN Reason: Pain 1-5 Pantoprazole Sodium (Protonix) 40 mg PO DAILY [facility] Last Admin: 07/01/18 09:35 Dose: 40 mg Senna/Docusate Sodium (Amelia-Colace) 1 tab PO BID [facility] Last Admin: 07/01/18 09:35 Dose: 1 tab Sennosides (Senokot) 17.2 mg PO Q12H PRN PRN Reason: Moderate Constipation Sodium Chloride (Ns Flush) 2 ml IV.FLUSH BID [facility] Last Admin: 07/01/18 09:36 Dose: 2 ml Sodium Chloride (Ns Flush) 2 ml IV.FLUSH PRN PRN PRN Reason: FLUSH AFTER USING IV ACCESS Zolpidem Tartrate (Ambien) 10 mg PO HS PRN PRN Reason: SLEEP Last Admin: 06/30/18 22:45 Dose: 10 mg Exam Vital signs: Vital Signs 06/30/18 15:36 06/30/18 20:00 06/30/18 21:20 Temperature 98.5 F Pulse Rate 62 67 60 Respiratory Rate 17 20 14 Blood Pressure 157/71 H Pulse Oximetry 97 95 97 07/01/18 00:00 07/01/18 03:25 07/01/18 04:00 Temperature 98.4 F Pulse Rate 60 67 59 L Respiratory Rate 16 14 16 Blood Pressure 151/71 H 164/62 H Pulse Oximetry 95 95 07/01/18 07:00 07/01/18 09:16 07/01/18 11:00 Temperature 98.7 F 98.7 F Pulse Rate 74 74 72 Respiratory Rate 22 17 16 Blood Pressure 160/72 H 152/69 H Pulse Oximetry 97 96 97 07/01/18 13:00 07/01/18 14:50 07/01/18 15:00 Temperature 98.7 F Pulse Rate 69 71 Respiratory Rate 16 18 Blood Pressure 132/72 Pulse Oximetry 97 98 Intake & Output 06/30/18 07/01/18 07/01/18 18:59 06:59 18:59 Intake Total 1020 / 1020 680 / 680 100 / 100 Output Total 900 / 900 250 / 250 Balance 120 / 120 430 / 430 100 / 100 Weight 84 kg Intake: IV 100 / 100 100 / 100 Rocephin Inj 1,000 MG In NS Inj 100 / 100 100 / 100 100 ML @ 200 mls/hr IV.SIG Q24H [facility] Rx#:[id number] Oral 920 / 920 680 / 680 Output: Urine 900 / 900 250 / 250 Other: # Bowel Movements 0 Results - Lab Results 07/01/18 04:34 07/01/18 04:34 Most recent lab results Calcium 8.4 mg/dL (8.5-10.1) L 07/01/18 04:34 Phosphorus 5.2 mg/dL (2.5-4.9) H D 07/01/18 04:34 Magnesium 2.5 mg/dL (1.5-2.5) 07/01/18 04:34 Assessment and Plan - Assessment (1) Acute kidney injury Code(s): N17.9 - Acute kidney failure, unspecified Status: Acute Plan: Patient seen and examined, agree with above. Patient has Chronic kidney disease, most likely due to Diabetic or Hypertensive renal disease, and now develop SO. Renal U/S noted, possibly has ATN. Follow the urine out put and BMP. Avoid Nephrotoxins. (2) Anemia Code(s): D64.9 - Anemia, unspecified Status: Acute (3) Complete heart block by electrocardiogram Code(s): I44.2 - Atrioventricular block, complete Status: Acute (4) Sepsis Code(s): A41.9 - Sepsis, unspecified organism Status: Acute
[2018-07-01] MEDS ORDERED: Sodium Chlor 0.9% Inj 250 ML IV.SIG ONE (22:00)
[2018-07-01] MEDS: Acetaminophen 325 MG Tablet PO PRN (22:08)
[2018-07-01] MEDS: Sod Chloride 0.9% Inj 1,000 ML IV.SIG SCH (22:17)
[2018-07-02 04:36] LABS: Baso # (Auto) 0.1 th/mm3 (0.0-0.2); Baso % (Auto) 0.7 % (0.0-2.0); Eos # (Auto) 0.5 th/mm3 (0.0-0.4); Eos % (Auto) 2.9 % (0.0-4.0); Hematocrit 30.2 % (39.0-51.0); Hemoglobin 9.8 gm/dL (13.0-17.0); Lymph # (Auto) 9.1 th/mm3 (1.0-4.8); Lymph % (Auto) 50.4 % (9.0-44.0); Mean Corpuscular HGB Conc 32.5 % (32.0-36.0); Mean Corpuscular Hemoglobin 29.1 pg (27.0-34.0); Mean Corpuscular Volume 89.4 fL (80.0-100.0); Mean Platelet Volume 10.4 fL (7.0-11.0); Mono # (Auto) 1.6 th/mm3 (0.0-0.9); Mono % (Auto) 9.1 % (0.0-8.0); Neut # (Auto) 6.6 th/mm3 (1.8-7.7); Neut % (Auto) 36.9 % (16.0-70.0); Platelet Count 312 th/mm3 (150-450); Red Blood Count 3.38 mil/mm3 (4.50-5.90); Red Cell Distribution Width 14.7 % (11.6-17.2)
[2018-07-02 04:42] LABS: INR 1.1 Ratio; Prothrombin Time 11.3 sec (9.8-11.6)
[2018-07-02 04:57] LABS: Albumin 2.5 g/dL (3.4-5.0); Calcium 8.2 mg/dL (8.5-10.1); Calcium 8.4 mg/dL (8.5-10.1); Carbon Dioxide 21.1 meq/L (21.0-32.0); Carbon Dioxide 21.6 meq/L (21.0-32.0); Magnesium 2.4 mg/dL (1.5-2.5); Phosphorus 5.1 mg/dL (2.5-4.9); Potassium 4.3 meq/L (3.5-5.1)
[2018-07-02 05:04] LABS: Eosinophils 4 % (0-4); Lymphocytes 44 % (9-44); Monocytes 10 % (0-8); Ovalocytes 1+
[2018-07-02 05:05] LABS: Platelet Estimate Normal (Normal); Platelet Morphology Normal (Normal)
[2018-07-02] MEDS: Chlorhexidine Gluconate 2% 1 Pack (2 Cloths) TOPICAL SCH ×2 (07:22)
--- NOTE | 2018-07-02 08:22 | P.PNCA ---
Subjective Interval history: sitting on edge of bed eating breakfast. reports continued persistent dry cough with pleuritic-type chest pain. LE edema improving. No SOB, palpitations or dizziness. Physical Exam Vital signs: Vital Signs 07/01/18 09:16 07/01/18 11:00 07/01/18 13:00 Temperature 98.7 F Pulse Rate 74 72 Respiratory Rate 17 16 Blood Pressure 152/69 H Pulse Oximetry 96 97 97 07/01/18 13:30 07/01/18 14:50 07/01/18 15:00 Temperature 98.7 F Pulse Rate 69 71 Respiratory Rate 16 18 Blood Pressure 132/72 Pulse Oximetry 96 98 07/01/18 16:45 07/01/18 19:47 07/01/18 20:00 Temperature 98.6 F Pulse Rate 63 68 Respiratory Rate 18 18 Blood Pressure 147/66 H Pulse Oximetry 98 98 97 07/02/18 00:00 07/02/18 02:49 07/02/18 03:00 Temperature 98.4 F Pulse Rate 56 L 64 60 Respiratory Rate 20 16 Blood Pressure 132/66 Pulse Oximetry 96 07/02/18 04:00 Temperature Pulse Rate 56 L Respiratory Rate 18 Blood Pressure 137/69 Pulse Oximetry 95 Intake & Output 07/01/18 07/02/18 07/02/18 18:59 06:59 18:59 Intake Total 560 / 560 970 / 970 Output Total 0 / 0 350 / 350 Balance 560 / 560 620 / 620 Weight 83.5 kg Intake: IV 100 / 100 250 / 250 NS Inj 250 ML @ 999 mls/hr IV. 250 / 250 SIG BOLUS ONE Rx#:[id number] Rocephin Inj 1,000 MG In NS Inj 100 / 100 100 ML @ 200 mls/hr IV.SIG Q24H GLENIS Rx#:[id number] Oral 460 / 460 720 / 720 Output: Urine 0 / 0 350 / 350 Other: # Bowel Movements 0 Narrative: GENERAL: AOx3, comfortable appearing, speaking full sentences SKIN: Warm and dry. HEAD: Atraumatic. Normocephalic. EYES: Pupils equal and round. No scleral icterus. No injection or drainage. ENT: No nasal bleeding or discharge. Mucous membranes pink and moist. NECK: Trachea midline. No JVD. CARDIOVASCULAR: Regular rate and rhythm. No murmurs appreciated. 2+ edema bilateral LE up to knees RESPIRATORY: No accessory muscle use. Clear to auscultation. Breath sounds equal bilaterally. NEUROLOGICAL: Awake and alert. No obvious cranial nerve deficits. Normal speech. PSYCHIATRIC: Appropriate mood and affect; insight and judgment normal. Assessment and Plan - Plan Assessment: Patient presents as transfer from [facility] with CHB and junctional escape rhythm, hemodynamically stable in the setting of ADHF, fever, leukocytosis, and CKD stage 3. There was concern for possible bacterial endocarditis in this setting, however transthoracic echocardiogram and transesophageal echocardiogram did not reveal any valvular vegetations. LV systolic function is normal. No adynamic with significant valvular disease. Given he is hemodynamically stable with junctional escape, will hold off on placement of dual-chamber permanent pacemaker pending ID recommendations as we follow blood culture results and further infectious workup. -CHB, with junctional escape rhythm -ADHF, EF unknown -SIRS criteria (fever, leukocytosis, hypoxemia) -CKD stage 3, with SO -Anasarca with lower extremity edema and albumin 2.4 -CAD, asymptomatic Recommendations: -Hold off on PPM placement pending okay with ID as long as he is hemodynamically stable; PPM placement possibly Wednesday if cultures neg. -continue transcutaneous pacer pads for now -no AVN blocking agents -Nephrology following for SO on CKD -Continue home ASA 81mg daily will continue to follow with you.
[2018-07-02] MEDS: Heparin - SQ 10,000 UNITS/ML Vial SQ SCH ×2 (09:17→21:12)
[2018-07-02] MEDS: Calcitriol 0.25 MCG Capsule PO SCH (09:17)
[2018-07-02] MEDS: amLODIPine 5 MG Tablet PO SCH (09:18)
[2018-07-02] MEDS: Insulin NovoLIN Regular Correctional Sugar Inj SQ SCH ×4 (09:18→21:13)
[2018-07-02] MEDS: Insulin Detemir Inj 1,000 UNIT/10 ML Vial SQ SCH ×3 (09:19→21:13)
[2018-07-02] MEDS: Senna/Docusate Sodium 8.6/50 MG Tablet PO SCH ×2 (09:20→21:13)
--- NOTE | 2018-07-02 10:46 | P.PNNP ---
Subjective Interval history: Patient is sleepy, with VM, not in distress. Physical Exam Vital signs: Vital Signs 07/01/18 11:00 07/01/18 13:00 07/01/18 13:30 Temperature 98.7 F Pulse Rate 72 Respiratory Rate 16 Blood Pressure 152/69 H Pulse Oximetry 97 97 96 07/01/18 14:50 07/01/18 15:00 07/01/18 16:45 Temperature 98.7 F Pulse Rate 69 71 Respiratory Rate 16 18 Blood Pressure 132/72 Pulse Oximetry 98 98 07/01/18 19:47 07/01/18 20:00 07/02/18 00:00 Temperature 98.6 F 98.4 F Pulse Rate 63 68 56 L Respiratory Rate 18 18 20 Blood Pressure 147/66 H 132/66 Pulse Oximetry 98 97 96 07/02/18 02:49 07/02/18 03:00 07/02/18 04:00 Temperature Pulse Rate 64 60 56 L Respiratory Rate 16 18 Blood Pressure 137/69 Pulse Oximetry 95 07/02/18 07:00 07/02/18 09:56 Temperature 97.8 F Pulse Rate 67 Respiratory Rate 18 Blood Pressure 157/70 H Pulse Oximetry 95 Intake & Output 07/01/18 07/02/18 07/02/18 18:59 06:59 18:59 Intake Total 560 / 560 970 / 970 Output Total 0 / 0 350 / 350 Balance 560 / 560 620 / 620 Weight 83.5 kg Intake: IV 100 / 100 250 / 250 NS Inj 250 ML @ 999 mls/hr IV. 250 / 250 SIG BOLUS ONE Rx#:[id number] Rocephin Inj 1,000 MG In NS Inj 100 / 100 100 ML @ 200 mls/hr IV.SIG Q24H GLENIS Rx#:[id number] Oral 460 / 460 720 / 720 Output: Urine 0 / 0 350 / 350 Other: # Bowel Movements 0 Narrative: GENERAL: AOx3, comfortable appearing, speaking full sentences SKIN: Warm and dry. HEAD: Atraumatic. Normocephalic. EYES: Pupils equal and round. No scleral icterus. No injection or drainage. ENT: No nasal bleeding or discharge. Mucous membranes pink and moist. NECK: Trachea midline. No JVD. CARDIOVASCULAR: Regular rate and rhythm. No murmurs appreciated. 2+ edema bilateral LE up to knees RESPIRATORY: No accessory muscle use. Clear to auscultation. Breath sounds equal bilaterally. NEUROLOGICAL: Awake and alert. No obvious cranial nerve deficits. Normal speech. PSYCHIATRIC: Appropriate mood and affect; insight and judgment normal. Assessment and Plan - Assessment (1) Acute kidney injury Code(s): N17.9 - Acute kidney failure, unspecified Status: Acute Plan: - Assessment (1) Acute kidney injury Code(s): N17.9 - Acute kidney failure, unspecified Status: Acute Plan: Patient has Chronic kidney disease, most likely due to Diabetic or Hypertensive renal disease, and now develop SO. Renal U/S noted, possibly has ATN. Follow the urine out put and BMP. Avoid Nephrotoxins. Creatinine is now stable at 3.3. Continue gentle hydration, Na is better. (2) Anemia Code(s): D64.9 - Anemia, unspecified Status: Acute (3) Complete heart block by electrocardiogram Code(s): I44.2 - Atrioventricular block, complete Status: Acute (2) Anemia Code(s): D64.9 - Anemia, unspecified Status: Acute Plan: Hemoglobin stable at 10.5 Most likely from chronic disease (3) Complete heart block by electrocardiogram Code(s): I44.2 - Atrioventricular block, complete Status: Acute Plan: Plan for pacemaker when cultures are negative (4) Sepsis Code(s): A41.9 - Sepsis, unspecified organism Status: Acute Plan: ID consulted and cultures pending On antibiotics, renal dose as appropriate
--- NOTE | 2018-07-02 10:51 | P.PNCC ---
Subjective Subjective Remarks/Hospital Course: This is a 72-year-old male with a history of prior aortic valve pathology status post an aortic valve replacement in 2010 here at [facility]. He has been seeing his primary care doctor [facility] the [facility] over the last 2 weeks for increasing shortness of breath and lower extremity edema. He was placed on furosemide with some symptomatic relief. Today, he was in clinic and he stated he continued to feel worsening of his shortness of breath today. EKG in clinic demonstrated third-degree heart block and the patient was sent from clinic to the [facility] in [place]. [facility] in [place] admitted the patient, however no electrophysiology or cardiology consultation was available at the [facility], and the [facility] asked [facility] to accept the patient in transfer for workup of his third-degree heart block. Per the [facility] reports, the patient had a ventricular rate in the 30s-40s and was intermittently transcutaneously paced. Upon arrival to our institution, the patient has a ventricular rate of 70s. Repeat EKG still demonstrates that the patient has P waves and QRS complexes, but it does appear that the patient has complete heart block. His QRS complex is narrow, which would suggest that his ventricular rhythm is somewhat junctional in nature, but he clearly has regular P waves which are not associated in any way with his QRS complex. The patient is here still endorses mild shortness of breath. He denies any chest pain. He states that he has not had a recent echocardiogram. Does endorse lower extremity edema. Endorses mild dyspnea on exertion which has been very slowly increasing over the last 2 weeks. Denies orthopnea. Denies PND. Denies fever and chills. He is febrile to 102 here on admission, and other than he states approximately 2-3 weeks ago he felt like he had "head cold", he endorses no other infectious symptoms. He denies any runny nose, cough, congestion. Denies nausea, vomiting, diarrhea, constipation, abdominal pain. The remainder of the review of systems is negative. Dr. Varun Santillan with cardiology has been informed of the patient's admission and has accepted the patient in consultation from the [facility]. 06/30: Currently afebrile. Currently on a Venturi mask 30% satting 92-94%. Some intravascular prominence on chest x-ray this a.m. Was previously on furosemide 40 mg twice daily and spironolactone 25 mg daily for pulmonary edema started 06/22 by his primary care physician. Creatinine currently 2.2. Baseline is 1.4-1.6. Complaining of edema in bilateral lower extremities which is new for him. 2d echocardiogram results pending. Denies chest pain 07/01: issue of significant bradycardia overnight resolved within seconds. Currently hemodynamically stable. Creatinine increased to 2.6 overnight. Currently on 4 L nasal cannula. SUBJECTIVE: 07/02: Afebrile. Creatinine increased to 3.3. Received a bolus of crystalloid and currently normal saline at 75 cc an hour. Currently on 2 L nasal cannula. Objective Vital Signs / I&O: Vital Signs 07/01/18 11:00 07/01/18 13:00 07/01/18 13:30 Temperature 98.7 F Pulse Rate 72 Respiratory Rate 16 Blood Pressure 152/69 H Pulse Oximetry 97 97 96 07/01/18 14:50 07/01/18 15:00 07/01/18 16:45 Temperature 98.7 F Pulse Rate 69 71 Respiratory Rate 16 18 Blood Pressure 132/72 Pulse Oximetry 98 98 07/01/18 19:47 07/01/18 20:00 07/02/18 00:00 Temperature 98.6 F 98.4 F Pulse Rate 63 68 56 L Respiratory Rate 18 18 20 Blood Pressure 147/66 H 132/66 Pulse Oximetry 98 97 96 07/02/18 02:49 07/02/18 03:00 07/02/18 04:00 Temperature Pulse Rate 64 60 56 L Respiratory Rate 16 18 Blood Pressure 137/69 Pulse Oximetry 95 07/02/18 07:00 07/02/18 09:56 Temperature 97.8 F Pulse Rate 67 Respiratory Rate 18 Blood Pressure 157/70 H Pulse Oximetry 95 Intake & Output 07/01/18 07/02/18 07/02/18 18:59 06:59 18:59 Intake Total 560 / 560 970 / 970 Output Total 0 / 0 350 / 350 Balance 560 / 560 620 / 620 Weight 83.5 kg Intake: IV 100 / 100 250 / 250 NS Inj 250 ML @ 999 mls/hr IV. 250 / 250 SIG BOLUS ONE Rx#:[id number] Rocephin Inj 1,000 MG In NS Inj 100 / 100 100 ML @ 200 mls/hr IV.SIG Q24H GLENIS Rx#:[id number] Oral 460 / 460 720 / 720 Output: Urine 0 / 0 350 / 350 Other: # Bowel Movements 0 Result Diagrams: 07/02/18 03:43 07/02/18 03:43 Other Results: Microbiology 06/30/18 09:55 Blood - Peripheral Aerobic Blood Culture - Preliminary No growth in 1 day 06/30/18 09:55 Blood - Peripheral Anaerobic Blood Culture - Preliminary No growth in 1 day 06/30/18 09:50 Blood - Peripheral Aerobic Blood Culture - Preliminary No growth in 1 day 06/30/18 09:50 Blood - Peripheral Anaerobic Blood Culture - Preliminary No growth in 1 day 06/30/18 15:30 Nasal Wash Influenza Types A,B Antigen - Final Negative for FLU A and B antigen Infection due to influenza A or B cannot be ruled out since the antigen present in the sample may be below the detection limit of the test. Imaging: Abdomen/Bladder Ultrasound 06/30/18 00:00 CONCLUSION: No evidence of hydronephrosis. Chest CT 06/30/18 00:00 CONCLUSION: 1. Findings probably on the basis of mild failure with patchy consolidation of both lungs and mild thickening of the interlobular septa as well as small right and tiny left pleural effusions. 2. Right lower lobe consolidation likely compressive/dependent atelectasis. 3. Previous median sternotomy and aortic valve replacement. Nonunion of the manubrial defect. 4. Coronary artery calcification. 5. A few scattered nonspecific upper limits of normal size mediastinal lymph nodes. Venous Doppler Study 06/30/18 00:00 CONCLUSION: 1. The study is negative for bilateral lower extremity deep venous thrombosis. Chest X-Ray 06/30/18 00:53 CONCLUSION: Interstitial prominence most characteristic of mild interstitial edema. Previous sternotomy. Chest X-Ray 07/01/18 07:58 CONCLUSION: Hypoaerated lungs with slightly less interstitial vascular prominence. Objective Remarks: GENERAL: 72-year-old male currently resting in bed in no acute distress SKIN: Warm and dry. HEAD: Atraumatic. Normocephalic. EYES: Pupils equal and round about 3 mm bilaterally and reactive. No scleral icterus. No injection or drainage. ENT: No nasal bleeding or discharge. Mucous membranes pink and moist. NECK: Trachea midline. No JVD. CARDIOVASCULAR: Third-degree heart block on telemetry. No obvious murmurs are appreciated. RESPIRATORY: Few fine crackles appreciated bilaterally right greater than left. No wheezing.. Symmetrical excursion. GASTROINTESTINAL: Abdomen soft, non-tender, nondistended. Hypoactive bowel sounds are appreciated. MUSCULOSKELETAL: Extremities with trace to 1+ bilateral lower extremity edema. No obvious deformities. NEUROLOGICAL: Awake and alert. No obvious cranial nerve deficits. Motor grossly within normal limits. Five out of 5 muscle strength in the arms and legs. Normal speech. PSYCHIATRIC: Appropriate mood and affect; insight and judgment appears normal Assessment and Plan - Assessment and Plan Plan: Neuro/Psych: History of sensorineural hearing loss Acetaminophen 650 mg p.o. every 6 hours as needed fever Oxycodone 5 mg p.o. every 4 hours as needed pain 1 through 5 Morphine sulfate 2 mg IV every 2 hours as needed pain 6 through 10 CV: Third-degree heart block History of first-degree AV block Elevated troponin Elevated BNP Congestive heart failure unknown etiology History of essential hypertension Hyperlipidemia/triglyceridemia History of aortic valve replacement Dr. Santillan/cardiology consult Continue on Zoll Pads - if any symptomatic bradycardia, low threshold for transvenous pacer placement. DANYELLE revealed EF 60-65%. LAE. PAP 52 mmHg. Troponin peaked at 0.77. Home medications are metoprolol tartrate 50 mg twice daily and amlodipine 10 mg daily. Currently on amlodipine 5 mg daily. Continue aspirin 81 mg daily Holding fish oil 1000 mg twice daily for dyslipidemia. Previously on furosemide 40 mg twice daily and Spironolactone 25 mg daily Resp: Acute hypoxemic respiratory failure -resolved Currently on nasal cannula 2 L to maintain saturations greater than equal 90% On lung hyperinflation protocol with a EZPAP/PEP therapy Albuterol/ipratropium aerosols every 6 hours with albuterol aerosols every 2 hours as needed for dyspnea Previously on furosemide 40 mg p.o. daily and Spironolactone 25 mg daily Chest x-ray on admission revealed mild interstitial prominence likely pulmonary congestion CT thorax 06/30 - mild failure with patchy consolidation of both lungs and mild thickening of the interlobular septa as well as small right and tiny left pleural effusions. Right lower lobe consolidation likely compressive/dependent atelectasis. Previous median sternotomy and aortic valve replacement. Nonunion of the manubrial defect. Coronary artery calcification. A few scattered nonspecific upper limits of normal size mediastinal lymph nodes Up on chest x-ray in a.m. 07/03 GI: Hypoalbuminemia History of splenectomy Currently cardiac/ADA diet Pantoprazole for GI prophylaxis Docusate sodium/senna 1 tablet twice daily for bowel regimen : Claire catheter if indicated for accurate I's and O's in a critically ill patient Endo: Diabetes mellitus type 2 Currently on insulin Novulin R with Accu-Cheks every before meals/at bedtime hours to maintain euglycemia/medium protocol Holding metformin 5 mg twice daily/home medication. Normally on insulin glargine 28 units at night and insulin aspart 5 units a.m., 8 units for lunch and 8 units at supper We will start insulin glargine 8 units subcu twice daily TSH was 0.711 Renal: Acute kidney injury in the setting of chronic kidney disease stage IIIa Probable l ATN Baseline creatinine defined as 1.4-1.6. Currently 3.3 Avoid nephrotoxic medications Recheck creatinine in a.m. 07/01 Ultrasound revealed no hydronephrosis Urine eosinophils negative FENA was 0.2. Urine sodium was around 30. Urine sodium usually around 75 with furosemide use. So despite furosemide use probably likely prerenal Nephrology consult appreciated. Currently on normal saline at 75 cc an hour for attempted gently hydrate. Heme: Leukocytosis Normocytic anemia History of ITP Monitor CBC daily. Follow trends. No indication for transfusion of blood products at this time ID: Acute pyrexia History of RF Currently afebrile this a.m. Low threshold for infectious workup Negative influenza A and B 06/30 pending blood cultures 2. UA negative Negative Doppler bilateral lower extremities with fever We will also order a pro-calcitonin this a.m. elevated at 1.23 MSK: History of osteoarthritis of hip PT evaluate and treat FEN: Hyponatremia Hyperphosphatemia Replace electrolytes as clinically indicated Access -Utilize peripheral IV. Central line if indicated Prophylaxis -GI -pantoprazole -DVT-SCD/heparin subcu Level 3 follow-up
[2018-07-02] MEDS: Sod Chloride 0.9% Inj 1,000 ML IV.SIG SCH ×2 (12:40→23:00)
[2018-07-02] MEDS: Morphine Sulfate Inj 2 MG/ML Vial IV.PUSH PRN (22:41)
[2018-07-03] MEDS: Sod Chloride 0.9% Inj 1,000 ML IV.SIG SCH (00:50)
[2018-07-03] MEDS: Chlorhexidine Gluconate 2% 1 Pack (2 Cloths) TOPICAL SCH ×2 (04:00)
[2018-07-03 04:26] LABS: Baso # (Auto) 0.1 th/mm3 (0.0-0.2); Baso % (Auto) 0.8 % (0.0-2.0); Eos # (Auto) 0.7 th/mm3 (0.0-0.4); Eos % (Auto) 3.4 % (0.0-4.0); Hemoglobin 10.3 gm/dL (13.0-17.0); Lymph # (Auto) 7.9 th/mm3 (1.0-4.8); Lymph % (Auto) 40.7 % (9.0-44.0); Mean Corpuscular HGB Conc 33.4 % (32.0-36.0); Mean Corpuscular Hemoglobin 29.5 pg (27.0-34.0); Mean Corpuscular Volume 88.3 fL (80.0-100.0); Mean Platelet Volume 10.1 fL (7.0-11.0); Mono # (Auto) 1.5 th/mm3 (0.0-0.9); Mono % (Auto) 7.6 % (0.0-8.0); Neut # (Auto) 9.2 th/mm3 (1.8-7.7); Neut % (Auto) 47.5 % (16.0-70.0); Platelet Count 352 th/mm3 (150-450); Red Blood Count 3.51 mil/mm3 (4.50-5.90); Red Cell Distribution Width 14.7 % (11.6-17.2); White Blood Count 19.3 th/mm3 (4.0-11.0)
[2018-07-03 04:34] LABS: INR 1.1 Ratio; Prothrombin Time 10.8 sec (9.8-11.6)
[2018-07-03 04:49] LABS: Alanine Aminotransferase 18 U/L (12-78); Albumin 2.7 g/dL (3.4-5.0); Anion Gap 13 meq/L (5-15); Aspartate Aminotransferase 19 U/L (15-37); Blood Urea Nitrogen 86 mg/dL (7-18); Calcium 8.2 mg/dL (8.5-10.1); Carbon Dioxide 19.2 meq/L (21.0-32.0); Chloride 99 meq/L (98-107); Glomerular Filtration Rate 21 mL/min (>89); Glucose,Random 163 mg/dL (74-106); Magnesium 2.6 mg/dL (1.5-2.5); Phosphorus 5.5 mg/dL (2.5-4.9); Sodium 131 meq/L (136-145)
[2018-07-03 04:51] LABS: Alkaline Phosphatase 76 U/L (45-117); Total Protein 7.3 g/dL (6.4-8.2)
--- NOTE | 2018-07-03 05:58 | XR ---
EXAM DATE: 07/03/2018 5:27 AM EDT AGE/SEX: 72 years / Male INDICATIONS: Shortness of breath, possible pneumothorax. CLINICAL DATA: This is the patient's subsequent encounter. Patient reports that signs and symptoms h ave been present for 3 days and indicates a pain score of 7/10. MEDICAL/SURGICAL HISTORY: Hypertension. Diabetes. CABG. AVR. COMPARISON: [facility], CHEST 1V SINGLE AP, 07/01/2018. . FINDINGS: Mild diffuse interstitial prominence with minimal by basilar airspace disease. Cardiomediastinal cont ours are stable with indistinct central pulmonary vascularity. Remainder of the exam is unchanged. CONCLUSION: 1. Stable mild interstitial edema. 2. Developing mild bibasilar airspace disease, presumably atelectasis. Electronically signed by: Clifford Dickinson MD 07/03/2018 5:56 AM EDT
[2018-07-03 07:25] LABS: Eosinophils 3 % (0-4); Lymphocytes 36 % (9-44); Monocytes 6 % (0-8); Platelet Estimate Normal (Normal); Promyelocyte 1 % (0-0)
--- NOTE | 2018-07-03 07:25 | P.PNCC ---
Subjective Subjective Remarks/Hospital Course: This is a 72-year-old male with a history of prior aortic valve pathology status post an aortic valve replacement in 2010 here at [facility]. He has been seeing his primary care doctor at the [facility] over the last 2 weeks for increasing shortness of breath and lower extremity edema. He was placed on furosemide with some symptomatic relief. Today, he was in clinic and he stated he continued to feel worsening of his shortness of breath today. EKG in clinic demonstrated third-degree heart block and the patient was sent from clinic to the [facility] in [place]. [facility] in [place] admitted the patient, however no electrophysiology or cardiology consultation was available at the [facility], and the [facility] asked [facility] to accept the patient in transfer for workup of his third-degree heart block. Per the [facility] reports, the patient had a ventricular rate in the 30s-40s and was intermittently transcutaneously paced. Upon arrival to our institution, the patient has a ventricular rate of 70s. Repeat EKG still demonstrates that the patient has P waves and QRS complexes, but it does appear that the patient has complete heart block. His QRS complex is narrow, which would suggest that his ventricular rhythm is somewhat junctional in nature, but he clearly has regular P waves which are not associated in any way with his QRS complex. The patient is here still endorses mild shortness of breath. He denies any chest pain. He states that he has not had a recent echocardiogram. Does endorse lower extremity edema. Endorses mild dyspnea on exertion which has been very slowly increasing over the last 2 weeks. Denies orthopnea. Denies PND. Denies fever and chills. He is febrile to 102 here on admission, and other than he states approximately 2-3 weeks ago he felt like he had "head cold", he endorses no other infectious symptoms. He denies any runny nose, cough, congestion. Denies nausea, vomiting, diarrhea, constipation, abdominal pain. The remainder of the review of systems is negative. Dr. Varun Santillan with cardiology has been informed of the patient's admission and has accepted the patient in consultation from the [facility]. 06/30: Currently afebrile. Currently on a Venturi mask 30% satting 92-94%. Some intravascular prominence on chest x-ray this a.m. Was previously on furosemide 40 mg twice daily and spironolactone 25 mg daily for pulmonary edema started 06/22 by his primary care physician. Creatinine currently 2.2. Baseline is 1.4-1.6. Complaining of edema in bilateral lower extremities which is new for him. 2d echocardiogram results pending. Denies chest pain 07/01: 1 issue of significant bradycardia overnight resolved within seconds. Currently hemodynamically stable. Creatinine increased to 2.6 overnight. Currently on 4 L nasal cannula. SUBJECTIVE: 07/02: Afebrile. Creatinine increased to 3.3. Received a bolus of crystalloid and currently normal saline at 75 cc an hour. Currently on 2 L nasal cannula. 07/03: Sitting up in chair complains of subjective shortness of breath. Basilar crackles on exam, chest x-ray shows stable pulmonary edema. Will DC IV fluids given Lasix 60 mg IV 1 and evaluate response. Creatinine is 3 today. Urine output 650 mL in 24 hours. Overall weight 7 kg up since admission Objective Vital Signs / I&O: Vital Signs 07/02/18 09:56 07/02/18 11:00 07/02/18 12:02 Temperature 97.8 F Pulse Rate 71 72 Respiratory Rate 18 Blood Pressure Pulse Oximetry 98 07/02/18 12:03 07/02/18 15:00 07/02/18 16:00 Temperature Pulse Rate 69 Respiratory Rate 20 Blood Pressure 155/73 H Pulse Oximetry 98 95 94 L 07/02/18 16:22 07/02/18 19:00 07/02/18 19:20 Temperature 98.4 F Pulse Rate 66 62 61 Respiratory Rate 18 18 Blood Pressure 152/71 H Pulse Oximetry 95 07/02/18 20:00 07/02/18 21:56 07/02/18 22:17 Temperature Pulse Rate 69 Respiratory Rate 26 H Blood Pressure Pulse Oximetry 95 94 L 91 L 07/02/18 22:43 07/02/18 23:00 07/02/18 23:34 Temperature 99.7 F H Pulse Rate 77 74 Respiratory Rate 18 24 Blood Pressure 150/78 H Pulse Oximetry 95 07/03/18 02:00 07/03/18 03:00 07/03/18 03:30 Temperature 98.4 F Pulse Rate 69 67 Respiratory Rate 24 Blood Pressure 147/73 H Pulse Oximetry 97 96 07/03/18 03:40 07/03/18 03:47 Temperature Pulse Rate 65 Respiratory Rate 22 Blood Pressure Pulse Oximetry 96 99 Intake & Output 07/02/18 07/03/18 07/03/18 18:59 06:59 18:59 Intake Total 2696 / 2696 1192 / 1192 Output Total 350 / 350 300 / 300 Balance 2346 / 2346 892 / 892 Weight 91 kg Intake: IV 1756 / 1756 352 / 352 NS Inj 1,000 ML @ 75 mls/hr IV. 1656 / 1656 352 / 352 SIG .[id number] [facility] Rx#:[id number] Rocephin Inj 1,000 MG In NS Inj 100 / 100 100 ML @ 200 mls/hr IV.SIG Q24H [facility] Rx#:[id number] Oral 940 / 940 840 / 840 Output: Urine 350 / 350 300 / 300 Other: Date of Last Bowel Movement 07/02/18 # Bowel Movements 1 Result Diagrams: 07/03/18 03:39 07/03/18 03:39 Objective Remarks: GENERAL: 72-year-old male currently resting in chair, complaining of shortness of breath SKIN: Warm and dry. HEAD: Atraumatic. Normocephalic. EYES: Pupils equal and round about 3 mm bilaterally and reactive. No scleral icterus. No injection or drainage. ENT: No nasal bleeding or discharge. Mucous membranes pink and moist. NECK: Trachea midline. No appreciable JVD. CARDIOVASCULAR: Third-degree heart block on telemetry. No obvious murmurs are appreciated. Heart rate now 70 bpm RESPIRATORY: Few fine crackles appreciated bilaterally at the bases. No wheezing. Symmetrical excursion. GASTROINTESTINAL: Abdomen soft, non-tender, nondistended. Hypoactive bowel sounds are appreciated. MUSCULOSKELETAL: Extremities with trace to 1+ bilateral lower extremity edema. No obvious deformities. NEUROLOGICAL: Awake and alert. No obvious cranial nerve deficits. Motor grossly within normal limits. Five out of 5 muscle strength in the arms and legs. Normal speech. Assessment and Plan - Assessment and Plan Plan: Neuro/Psych: History of sensorineural hearing loss Acetaminophen 650 mg p.o. every 6 hours as needed fever Oxycodone 5 mg p.o. every 4 hours as needed pain 1 through 5 Morphine sulfate 2 mg IV every 2 hours as needed pain 6 through 10 CV: Third-degree heart block History of first-degree AV block Elevated troponin Elevated BNP Congestive heart failure History of essential hypertension Hyperlipidemia/triglyceridemia History of aortic valve replacement Dr. Santillan/cardiology consult. PPM placement tentatively planned for 07/05/2018 Continue on Zoll Pads, if any symptomatic bradycardia, low threshold for transvenous pacer placement. DANYELLE revealed EF 60-65%. LAE. PAP 52 mmHg. Troponin peaked at 0.77. Home medications are metoprolol tartrate 50 mg twice daily (on hold) and amlodipine 10 mg daily. Currently on amlodipine 5 mg daily. Continue aspirin 81 mg daily Holding fish oil 1000 mg twice daily for dyslipidemia. Previously on furosemide 40 mg twice daily and Spironolactone 25 mg daily Give Lasix 60 mg IV 1 due to pulmonary edema and weight gain Resp: Acute hypoxemic respiratory failure -resolving Currently on nasal cannula 2 L to maintain saturations greater than equal 90% On lung hyperinflation protocol with a EZPAP/PEP therapy Albuterol/ipratropium aerosols every 6 hours with albuterol aerosols every 2 hours as needed for dyspnea Previously on furosemide 40 mg p.o. daily and Spironolactone 25 mg daily. 1 dose of Lasix 60 mg today as above Chest x-ray on admission, and today revealed mild pulmonary edema CT thorax 06/30 - mild failure with patchy consolidation of both lungs and mild thickening of the interlobular septa as well as small right and tiny left pleural effusions. Right lower lobe consolidation likely compressive/dependent atelectasis. GI: Hypoalbuminemia History of splenectomy Currently cardiac/ADA diet Pantoprazole for GI prophylaxis Docusate sodium/senna 1 tablet twice daily for bowel regimen : Claire catheter if indicated for accurate I's and O's in a critically ill patient Endo: Diabetes mellitus type 2 Currently on insulin Novulin R with Accu-Cheks every before meals/at bedtime hours to maintain euglycemia/medium protocol Holding metformin 5 mg twice daily/home medication. Normally on insulin glargine 28 units at night and insulin aspart 5 units a.m., 8 units for lunch and 8 units at supper Insulin glargine 8 units subcu twice daily TSH was 0.711 Renal: Acute kidney injury in the setting of chronic kidney disease stage IIIa Probable l ATN Baseline creatinine defined as 1.4-1.6. Currently 3.0 Avoid nephrotoxic medications Recheck creatinine in a.m. 07/04 Ultrasound revealed no hydronephrosis Urine eosinophils negative FENA was 0.2. Urine sodium was around 30. Urine sodium usually around 75 with furosemide use. So despite furosemide use probably likely prerenal Nephrology consult appreciated. Currently on normal saline at 75 cc an hour for attempted gently hydrate. Discontinue IV fluid and give Lasix as above Heme: Leukocytosis Normocytic anemia History of ITP Monitor CBC daily. Follow trends. No indication for transfusion of blood products at this time ID: Acute pyrexia History of RF Probable community-acquired pneumonia Currently afebrile this a.m. but WBC count is worsening ID following, continue Rocephin. Add azithromycin for atypical coverage Check urine for pneumococcal and Legionella antigen, send sputum culture Negative influenza A and B. 06/30 negative blood cultures 2. UA negative Negative Doppler bilateral lower extremities with fever Pro-calcitonin this a.m. elevated at 1.23, 06/30. Repeat pending MSK: History of osteoarthritis of hip PT evaluate and treat FEN: Hyponatremia Hyperphosphatemia Replace electrolytes as clinically indicated Access -Utilize peripheral IV. Central line if indicated Prophylaxis -GI -pantoprazole -DVT-SCD/heparin subcu Level 3 follow-up
[2018-07-03 07:26] LABS: Platelet Morphology Normal (Normal)
[2018-07-03] MEDS: Insulin Detemir Inj 1,000 UNIT/10 ML Vial SQ SCH ×2 (08:32→20:53)
[2018-07-03] MEDS: Heparin - SQ 10,000 UNITS/ML Vial SQ SCH ×2 (08:38→20:52)
[2018-07-03] MEDS: Azithromycin Inj 500 MG in Sodium Chlor 0.9% Inj 250 ML IV.SIG SCH (08:38)
[2018-07-03] MEDS: Insulin NovoLIN Regular Correctional Sugar Inj SQ SCH ×4 (08:39→20:53)
[2018-07-03] MEDS: Calcitriol 0.25 MCG Capsule PO SCH (08:40)
[2018-07-03] MEDS: amLODIPine 5 MG Tablet PO SCH ×2 (08:40→09:30)
[2018-07-03] MEDS: Senna/Docusate Sodium 8.6/50 MG Tablet PO SCH ×2 (08:40→20:52)
[2018-07-03] MEDS: Morphine Sulfate Inj 2 MG/ML Vial IV.PUSH PRN (08:42)
--- NOTE | 2018-07-03 08:51 | P.PNCA ---
Subjective Interval history: Patient seen and examined. No events overnight. No chest pain, palpitations, lightheadedness, dyspnea. AVD on tele with stable HR 60s. Cr 3.0 today. No clear cause of leukocytosis, SO on CKD, admitting fevers, with work up completed thus far by ID and Nephrology. Physical Exam Vital signs: Vital Signs 07/02/18 09:56 07/02/18 11:00 07/02/18 12:02 Temperature 97.8 F Pulse Rate 71 72 Respiratory Rate 18 Blood Pressure Pulse Oximetry 98 07/02/18 12:03 07/02/18 15:00 07/02/18 16:00 Temperature Pulse Rate 69 Respiratory Rate 20 Blood Pressure 155/73 H Pulse Oximetry 98 95 94 L 07/02/18 16:22 07/02/18 19:00 07/02/18 19:20 Temperature 98.4 F Pulse Rate 66 62 61 Respiratory Rate 18 18 Blood Pressure 152/71 H Pulse Oximetry 95 07/02/18 20:00 07/02/18 21:56 07/02/18 22:17 Temperature Pulse Rate 69 Respiratory Rate 26 H Blood Pressure Pulse Oximetry 95 94 L 91 L 07/02/18 22:43 07/02/18 23:00 07/02/18 23:34 Temperature 99.7 F H Pulse Rate 77 74 Respiratory Rate 18 24 Blood Pressure 150/78 H Pulse Oximetry 95 07/03/18 02:00 07/03/18 03:00 07/03/18 03:30 Temperature 98.4 F Pulse Rate 69 67 Respiratory Rate 24 Blood Pressure 147/73 H Pulse Oximetry 97 96 07/03/18 03:40 07/03/18 03:47 07/03/18 07:00 Temperature 98.3 F Pulse Rate 65 63 Respiratory Rate 22 20 Blood Pressure 165/71 H Pulse Oximetry 96 99 96 Intake & Output 07/02/18 07/03/18 07/03/18 18:59 06:59 18:59 Intake Total 2696 / 2696 1192 / 1192 Output Total 350 / 350 300 / 300 Balance 2346 / 2346 892 / 892 Weight 91 kg Intake: IV 1756 / 1756 352 / 352 NS Inj 1,000 ML @ 75 mls/hr IV. 1656 / 1656 352 / 352 SIG .[id number] [facility] Rx#:[id number] Rocephin Inj 1,000 MG In NS Inj 100 / 100 100 ML @ 200 mls/hr IV.SIG Q24H [facility] Rx#:[id number] Oral 940 / 940 840 / 840 Output: Urine 350 / 350 300 / 300 Other: Date of Last Bowel Movement 07/02/18 # Bowel Movements 1 Narrative: GENERAL: AOx3, comfortable appearing, speaking full sentences SKIN: Warm and dry. HEAD: Atraumatic. Normocephalic. EYES: Pupils equal and round. No scleral icterus. No injection or drainage. ENT: No nasal bleeding or discharge. Mucous membranes pink and moist. NECK: Trachea midline. No JVD. CARDIOVASCULAR: Regular rate and rhythm. No murmurs appreciated. 2+ edema bilateral LE up to knees RESPIRATORY: No accessory muscle use. Clear to auscultation. Breath sounds equal bilaterally. NEUROLOGICAL: Awake and alert. No obvious cranial nerve deficits. Normal speech. PSYCHIATRIC: Appropriate mood and affect; insight and judgment normal. Assessment and Plan - Plan Assessment: Patient admitted as transfer from [facility] with CHB and junctional escape rhythm, hemodynamically stable in the setting of ADHF, fever, leukocytosis, and CKD stage 3. There was concern for possible bacterial endocarditis in this setting, however transthoracic echocardiogram and transesophageal echocardiogram did not reveal any valvular vegetations. LV systolic function is normal. No adynamic with significant valvular disease. Given he is hemodynamically stable with junctional escape, will hold off on placement of dual-chamber permanent pacemaker pending ID recommendations as we follow blood culture results and further infectious workup. -CHB, with junctional escape rhythm -HFpEF -Lower extremity edema -Anasarca with lower extremity edema and albumin 2.4 -SIRS criteria (fever, leukocytosis, hypoxemia) -CKD stage 3, with SO -CAD, asymptomatic Recommendations: -Leukocytosis with Blood Cx NGTD x 3 days. Please consider hematology consultation -Hold off on PPM placement pending okay with ID as long as he is hemodynamically stable; PPM placement possibly Wednesday if cultures neg. -continue transcutaneous pacer pads for now -no AVN blocking agents -Nephrology following for SO on CKD -Continue home ASA 81mg daily will continue to follow with you.
[2018-07-03] MEDS ORDERED: Benzocaine/Menthol 15 MG/3.6 MG SF Lozenge BUCCAL PRN (10:56)
--- NOTE | 2018-07-03 13:56 | ECG ---
Date Performed: 07/03/2018 Time Performed: 06:53:40 PTAGE: 72 years EKG: Sinus rhythm Electrical interferences Right axis deviation Possible inferior infarct - age undetermined Possible anterior infarct - age undetermined Lateral ST-T changes may be due to myocardial ischemia Low QRS vo ltages in precordial leads Abnormal ECG PREVIOUS TRACING : 06/30/2018 00.16 DOCTOR: Janeth Rodríguez Interpretating Date/Time 07/03/2018 13:55:54
[2018-07-03 14:51] LABS: Alanine Aminotransferase 19 U/L (12-78); Albumin 2.7 g/dL (3.4-5.0); Anion Gap 15 meq/L (5-15); Aspartate Aminotransferase 21 U/L (15-37); Blood Urea Nitrogen 90 mg/dL (7-18); Calcium 8.6 mg/dL (8.5-10.1); Carbon Dioxide 18.8 meq/L (21.0-32.0); Chloride 97 meq/L (98-107); Glomerular Filtration Rate 21 mL/min (>89); Glucose,Random 177 mg/dL (74-106); Potassium 4.9 meq/L (3.5-5.1); Sodium 131 meq/L (136-145)
[2018-07-03 14:54] LABS: Alkaline Phosphatase 77 U/L (45-117); Total Protein 7.2 g/dL (6.4-8.2)
--- NOTE | 2018-07-03 16:44 | P.PNNP ---
Subjective Interval history: Patient seen in the afternoon, has mild SOB, sitting in the chair. Physical Exam Vital signs: Vital Signs 07/02/18 19:00 07/02/18 19:20 07/02/18 20:00 Temperature 98.4 F Pulse Rate 62 61 Respiratory Rate 18 Blood Pressure 152/71 H Pulse Oximetry 95 95 07/02/18 21:56 07/02/18 22:17 07/02/18 22:43 Temperature Pulse Rate 69 Respiratory Rate 26 H 18 Blood Pressure Pulse Oximetry 94 L 91 L 07/02/18 23:00 07/02/18 23:34 07/03/18 02:00 Temperature 99.7 F H Pulse Rate 77 74 Respiratory Rate 24 Blood Pressure 150/78 H Pulse Oximetry 95 97 07/03/18 03:00 07/03/18 03:30 07/03/18 03:40 Temperature 98.4 F Pulse Rate 69 67 Respiratory Rate 24 Blood Pressure 147/73 H Pulse Oximetry 96 96 07/03/18 03:47 07/03/18 07:00 07/03/18 09:28 Temperature 98.3 F Pulse Rate 65 63 Respiratory Rate 22 20 23 Blood Pressure 165/71 H Pulse Oximetry 99 96 07/03/18 09:31 07/03/18 10:59 07/03/18 12:34 Temperature 98.1 F Pulse Rate 59 L 56 L Respiratory Rate 22 20 18 Blood Pressure 162/74 H Pulse Oximetry 96 95 07/03/18 15:00 07/03/18 15:53 07/03/18 16:00 Temperature 98.3 F Pulse Rate 61 Respiratory Rate 20 18 Blood Pressure 128/65 Pulse Oximetry 96 96 Intake & Output 07/02/18 07/03/18 07/03/18 18:59 06:59 18:59 Intake Total 2696 / 2696 1192 / 1192 350 / 350 Output Total 350 / 350 300 / 300 Balance 2346 / 2346 892 / 892 350 / 350 Weight 91 kg Intake: IV 1756 / 1756 352 / 352 350 / 350 Azithromycin Inj 500 MG In NS 250 / 250 Inj 250 ML @ 250 mls/hr IV.SIG Q24H [facility] Rx#:[id number] NS Inj 1,000 ML @ 75 mls/hr IV. 1656 / 1656 352 / 352 SIG .[id number] [facility] Rx#:[id number] Rocephin Inj 1,000 MG In NS Inj 100 / 100 100 / 100 100 ML @ 200 mls/hr IV.SIG Q24H [facility] Rx#:[id number] Oral 940 / 940 840 / 840 Output: Urine 350 / 350 300 / 300 Other: Date of Last Bowel Movement 07/02/18 # Bowel Movements 1 Narrative: GENERAL: AOx3, comfortable appearing, speaking full sentences SKIN: Warm and dry. HEAD: Atraumatic. Normocephalic. EYES: Pupils equal and round. No scleral icterus. No injection or drainage. ENT: No nasal bleeding or discharge. Mucous membranes pink and moist. NECK: Trachea midline. No JVD. CARDIOVASCULAR: Regular rate and rhythm. No murmurs appreciated. 2+ edema bilateral LE up to knees RESPIRATORY: No accessory muscle use. Clear to auscultation. Breath sounds equal bilaterally. NEUROLOGICAL: Awake and alert. No obvious cranial nerve deficits. Normal speech. PSYCHIATRIC: Appropriate mood and affect; insight and judgment normal. Assessment and Plan - Assessment (1) Acute kidney injury Code(s): N17.9 - Acute kidney failure, unspecified Status: Acute Plan: - Assessment (1) Acute kidney injury Code(s): N17.9 - Acute kidney failure, unspecified Status: Acute Plan: Patient has Chronic kidney disease, most likely due to Diabetic or Hypertensive renal disease, and now develop SO. Renal U/S noted, possibly has ATN. Follow the urine out put and BMP. Avoid Nephrotoxins. Creatinine is now better, 2.9. IVF stopped, has increasing edema. Will start Lasix BID. Follow the urine out put and BMP. (2) Anemia Code(s): D64.9 - Anemia, unspecified Status: Acute (3) Complete heart block by electrocardiogram Code(s): I44.2 - Atrioventricular block, complete Status: Acute (2) Anemia Code(s): D64.9 - Anemia, unspecified Status: Acute Plan: Hemoglobin stable at 10.5 Most likely from chronic disease (3) Complete heart block by electrocardiogram Code(s): I44.2 - Atrioventricular block, complete Status: Acute Plan: Plan for pacemaker when cultures are negative (4) Sepsis Code(s): A41.9 - Sepsis, unspecified organism Status: Acute Plan: ID consulted and cultures pending On antibiotics, renal dose as appropriate
[2018-07-04] MEDS: Chlorhexidine Gluconate 2% 1 Pack (2 Cloths) TOPICAL SCH ×2 (03:44)
[2018-07-04 04:23] LABS: Hematocrit 30.4 % (39.0-51.0); Hemoglobin 9.9 gm/dL (13.0-17.0); Mean Corpuscular HGB Conc 32.4 % (32.0-36.0); Mean Corpuscular Hemoglobin 29.1 pg (27.0-34.0); Mean Corpuscular Volume 89.6 fL (80.0-100.0); Mean Platelet Volume 9.9 fL (7.0-11.0); Platelet Count 372 th/mm3 (150-450); Red Cell Distribution Width 14.9 % (11.6-17.2); White Blood Count 18.2 th/mm3 (4.0-11.0)
[2018-07-04 04:32] LABS: INR 1.1 Ratio; Prothrombin Time 10.7 sec (9.8-11.6)
[2018-07-04 04:58] LABS: Alanine Aminotransferase 19 U/L (12-78); Albumin 2.8 g/dL (3.4-5.0); Alkaline Phosphatase 75 U/L (45-117); Anion Gap 14 meq/L (5-15); Aspartate Aminotransferase 25 U/L (15-37); Blood Urea Nitrogen 98 mg/dL (7-18); Calcium 8.8 mg/dL (8.5-10.1); Carbon Dioxide 17.6 meq/L (21.0-32.0); Chloride 97 meq/L (98-107); Glomerular Filtration Rate 23 mL/min (>89); Glucose,Random 162 mg/dL (74-106); Magnesium 2.7 mg/dL (1.5-2.5); Potassium 5.2 meq/L (3.5-5.1); Sodium 129 meq/L (136-145); Total Protein 7.4 g/dL (6.4-8.2)
--- NOTE | 2018-07-04 05:54 | XR ---
EXAM DATE: 07/04/2018 4:08 AM EDT AGE/SEX: 72 years / Male INDICATIONS: Shortness of breath, possible pneumothorax. CLINICAL DATA: This is the patient's subsequent encounter. Patient reports that signs and symptoms h ave been present for 4 - 6 days and indicates a pain score of 3/10. MEDICAL/SURGICAL HISTORY: Hypertension. Diabetes. CABG. AVR. COMPARISON: [facility], CHEST 1V SINGLE AP, 07/03/2018. . FINDINGS: Vascular congestion with central and basilar interstitial and alveolar opacities are again noted. Pro bable small effusion on the right. Cardiac contours are unchanged. CONCLUSION: Slight interval worsening in aeration. Electronically signed by: Luis Eduardo Whalen MD 07/04/2018 5:52 AM EDT
--- NOTE | 2018-07-04 07:02 | P.PNCC ---
Subjective Subjective Remarks/Hospital Course: This is a 72-year-old male with a history of prior aortic valve pathology status post an aortic valve replacement in 2010 here at [facility]. He has been seeing his primary care doctor at the [facility] over the last 2 weeks for increasing shortness of breath and lower extremity edema. He was placed on furosemide with some symptomatic relief. Today, he was in clinic and he stated he continued to feel worsening of his shortness of breath today. EKG in clinic demonstrated third-degree heart block and the patient was sent from clinic to the [facility] in [place]. [facility] in [place] admitted the patient, however no electrophysiology or cardiology consultation was available at the [facility], and the [facility] asked [facility] to accept the patient in transfer for workup of his third-degree heart block. Per the [facility] reports, the patient had a ventricular rate in the 30s-40s and was intermittently transcutaneously paced. Upon arrival to our institution, the patient has a ventricular rate of 70s. Repeat EKG still demonstrates that the patient has P waves and QRS complexes, but it does appear that the patient has complete heart block. His QRS complex is narrow, which would suggest that his ventricular rhythm is somewhat junctional in nature, but he clearly has regular P waves which are not associated in any way with his QRS complex. The patient is here still endorses mild shortness of breath. He denies any chest pain. He states that he has not had a recent echocardiogram. Does endorse lower extremity edema. Endorses mild dyspnea on exertion which has been very slowly increasing over the last 2 weeks. Denies orthopnea. Denies PND. Denies fever and chills. He is febrile to 102 here on admission, and other than he states approximately 2-3 weeks ago he felt like he had "head cold", he endorses no other infectious symptoms. He denies any runny nose, cough, congestion. Denies nausea, vomiting, diarrhea, constipation, abdominal pain. The remainder of the review of systems is negative. Dr. Varun Santillan with cardiology has been informed of the patient's admission and has accepted the patient in consultation from the [facility]. 06/30: Currently afebrile. Currently on a Venturi mask 30% satting 92-94%. Some intravascular prominence on chest x-ray this a.m. Was previously on furosemide 40 mg twice daily and spironolactone 25 mg daily for pulmonary edema started 06/22 by his primary care physician. Creatinine currently 2.2. Baseline is 1.4-1.6. Complaining of edema in bilateral lower extremities which is new for him. 2d echocardiogram results pending. Denies chest pain 07/01: 1 issue of significant bradycardia overnight resolved within seconds. Currently hemodynamically stable. Creatinine increased to 2.6 overnight. Currently on 4 L nasal cannula. 07/02: Afebrile. Creatinine increased to 3.3. Received a bolus of crystalloid and currently normal saline at 75 cc an hour. Currently on 2 L nasal cannula. 07/03: Sitting up in chair complains of subjective shortness of breath. Basilar crackles on exam, chest x-ray shows stable pulmonary edema. Will DC IV fluids given Lasix 60 mg IV 1 and evaluate response. Creatinine is 3 today. Urine output 650 mL in 24 hours. Overall weight 7 kg up since admission SUBJECTIVE: 07/04: Afebrile. Currently resting in chair in no acute distress. Noted electrolyte abnormalities this a.m. Remains a mild pulmonary edema. Currently in furosemide 40 g IV twice daily. Objective Vital Signs / I&O: Vital Signs 07/03/18 07:00 07/03/18 09:28 07/03/18 09:31 Temperature 98.3 F Pulse Rate 63 Respiratory Rate 20 23 22 Blood Pressure 165/71 H Pulse Oximetry 96 07/03/18 10:59 07/03/18 12:34 07/03/18 15:00 Temperature 98.1 F 98.3 F Pulse Rate 59 L 56 L 61 Respiratory Rate 20 18 20 Blood Pressure 162/74 H 128/65 Pulse Oximetry 96 95 96 07/03/18 15:53 07/03/18 16:00 07/03/18 17:26 Temperature Pulse Rate 61 Respiratory Rate 18 18 Blood Pressure Pulse Oximetry 96 94 L 07/03/18 19:00 07/03/18 19:30 07/03/18 20:55 Temperature 97.9 F Pulse Rate 76 64 Respiratory Rate 20 Blood Pressure 157/70 H Pulse Oximetry 95 96 07/03/18 20:57 07/03/18 23:00 07/03/18 23:19 Temperature 98.2 F Pulse Rate 60 61 66 Respiratory Rate 26 H 22 Blood Pressure 165/75 H Pulse Oximetry 97 07/04/18 00:00 07/04/18 02:20 07/04/18 03:00 Temperature Pulse Rate 63 Respiratory Rate Blood Pressure Pulse Oximetry 95 92 L 07/04/18 03:31 07/04/18 03:38 07/04/18 06:00 Temperature 98.3 F Pulse Rate 60 72 Respiratory Rate 24 28 H Blood Pressure 162/80 H Pulse Oximetry 97 92 L Intake & Output 07/03/18 07/03/18 07/04/18 06:59 18:59 06:59 Intake Total 1192 / 1192 1550 / 1550 480 / 480 Output Total 300 / 300 850 / 850 475 / 475 Balance 892 / 892 700 / 700 5 / 5 Weight 91 kg 91 kg Intake: IV 352 / 352 750 / 750 Azithromycin Inj 500 MG In NS 250 / 250 Inj 250 ML @ 250 mls/hr IV.SIG Q24H GLENIS Rx#:[id number] NS Inj 1,000 ML @ 75 mls/hr IV. 352 / 352 400 / 400 SIG .[id number] GLENIS Rx#:[id number] Rocephin Inj 1,000 MG In NS Inj 100 / 100 100 ML @ 200 mls/hr IV.SIG Q24H GLENIS Rx#:[id number] Oral 840 / 840 800 / 800 480 / 480 Output: Urine 300 / 300 850 / 850 475 / 475 Result Diagrams: 07/04/18 04:06 07/04/18 04:06 Other Results: Microbiology 07/03/18 10:45 Urine - Clean Catch Urine Streptococcus pneumoniae Antigen ( M - Final Presumptive negative for streptococcus pneumoniae antigen, suggesting no current or recent infection. Infection due to Streptococcus pneumoniae cannot be ruled out since the antigen present in the sample may be below the detection limit of the test. 07/03/18 10:45 Urine - Clean Catch Urine Legionella Antigen - Final Presumptive negative for Legionella pneumophila serogroup 1 antigen in urine, suggesting no recent or recurrent infection. Infection due to Legionella cannot be ruled out since other serogroups and species may cause disease, antigen may not be present in urine in early infection, and the level of antigen present in the urine may be below the detection limit of the test. 06/30/18 09:55 Blood - Peripheral Aerobic Blood Culture - Preliminary No growth in 3 days 06/30/18 09:55 Blood - Peripheral Anaerobic Blood Culture - Preliminary No growth in 3 days 06/30/18 09:50 Blood - Peripheral Aerobic Blood Culture - Preliminary No growth in 3 days 06/30/18 09:50 Blood - Peripheral Anaerobic Blood Culture - Preliminary No growth in 3 days 06/30/18 15:30 Nasal Wash Influenza Types A,B Antigen - Final Negative for FLU A and B antigen Infection due to influenza A or B cannot be ruled out since the antigen present in the sample may be below the detection limit of the test. Imaging: ITS Impressions Abdomen/Bladder Ultrasound 06/30/18 00:00 CONCLUSION: No evidence of hydronephrosis. Chest CT 06/30/18 00:00 CONCLUSION: 1. Findings probably on the basis of mild failure with patchy consolidation of both lungs and mild thickening of the interlobular septa as well as small right and tiny left pleural effusions. 2. Right lower lobe consolidation likely compressive/dependent atelectasis. 3. Previous median sternotomy and aortic valve replacement. Nonunion of the manubrial defect. 4. Coronary artery calcification. 5. A few scattered nonspecific upper limits of normal size mediastinal lymph nodes. Venous Doppler Study 06/30/18 00:00 CONCLUSION: 1. The study is negative for bilateral lower extremity deep venous thrombosis. Chest X-Ray 07/04/18 06:00 CONCLUSION: Slight interval worsening in aeration. Objective Remarks: GENERAL: 72-year-old male currently resting in chair, complaining of shortness of breath currently on nasal cannula SKIN: Warm and dry. HEAD: Atraumatic. Normocephalic. EYES: Pupils equal and round about 3 mm bilaterally and reactive. No scleral icterus. No injection or drainage. ENT: No nasal bleeding or discharge. Mucous membranes pink and moist. NECK: Trachea midline. No appreciable JVD. CARDIOVASCULAR: Third-degree heart block on telemetry. No obvious murmurs are appreciated. Heart rate now 70 bpm RESPIRATORY: Few fine crackles appreciated bilaterally at the bases. No wheezing. Symmetrical excursion. GASTROINTESTINAL: Abdomen soft, non-tender, nondistended. Hypoactive bowel sounds are appreciated. MUSCULOSKELETAL: Extremities with trace to 1+ bilateral lower extremity edema. No obvious deformities. Negative Homans sign NEUROLOGICAL: Awake and alert. No obvious cranial nerve deficits. Motor grossly within normal limits. Five out of 5 muscle strength in the arms and legs. Normal speech. Assessment and Plan - Assessment and Plan Plan: Neuro/Psych: History of sensorineural hearing loss Acetaminophen 650 mg p.o. every 6 hours as needed fever Oxycodone 5 mg p.o. every 4 hours as needed pain 1 through 5 Morphine sulfate 2 mg IV every 2 hours as needed pain 6 through 10 CV: Third-degree heart block History of first-degree AV block Elevated troponin Elevated BNP Congestive heart failure History of essential hypertension Hyperlipidemia/triglyceridemia History of aortic valve replacement Dr. Santillan/cardiology consult. PPM placement tentatively planned for 07/05/2018 Continue on Zoll Pads, if any symptomatic bradycardia, low threshold for transvenous pacer placement. DANYELLE revealed EF 60-65%. LAE. PAP 52 mmHg. Troponin peaked at 0.77. Home medications are metoprolol tartrate 50 mg twice daily (on hold) and amlodipine 10 mg daily. Currently on amlodipine 10 mg daily. Continue aspirin 81 mg daily Holding fish oil 1000 mg twice daily for dyslipidemia. Previously on furosemide 40 mg twice daily and Spironolactone 25 mg daily Currently on furosemide 40 mg twice daily Resp: Acute hypoxemic respiratory failure -resolving Currently on nasal cannula 2 L to maintain saturations greater than equal 90% On lung hyperinflation protocol with a EZPAP/PEP therapy Albuterol/ipratropium aerosols every 6 hours with albuterol aerosols every 2 hours as needed for dyspnea Previously on furosemide 40 mg p.o. daily and Spironolactone 25 mg daily. 1 dose of Lasix 60 mg today as above Chest x-ray on admission, and 07/04 revealed mild pulmonary edema CT thorax 06/30 - mild failure with patchy consolidation of both lungs and mild thickening of the interlobular septa as well as small right and tiny left pleural effusions. Right lower lobe consolidation likely compressive/dependent atelectasis. GI: Hypoalbuminemia History of splenectomy Currently cardiac/ADA diet Pantoprazole for GI prophylaxis Docusate sodium/senna 1 tablet twice daily for bowel regimen : Claire catheter if indicated for accurate I's and O's in a critically ill patient Endo: Diabetes mellitus type 2 Currently on insulin Novulin R with Accu-Cheks every before meals/at bedtime hours to maintain euglycemia/medium protocol Holding metformin 5 mg twice daily/home medication. Normally on insulin glargine 28 units at night and insulin aspart 5 units a.m., 8 units for lunch and 8 units at supper Insulin glargine 8 units subcu twice daily TSH was 0.711 Renal: Acute kidney injury in the setting of chronic kidney disease stage IIIa Probable l ATN Baseline creatinine defined as 1.4-1.6. Currently 2.8 Avoid nephrotoxic medications Urine output now 850 cc past 24 hours Ultrasound revealed no hydronephrosis Urine eosinophils negative FENA was 0.2. Urine sodium was around 30. Urine sodium usually around 75 with furosemide use. So despite furosemide use probably likely prerenal Nephrology consult appreciated. Currently on normal saline at 75 cc an hour for attempted gently hydrate. Discontinue IV fluid and give Lasix as above Heme: Leukocytosis Normocytic anemia History of ITP Monitor CBC daily. Follow trends. No indication for transfusion of blood products at this time ID: Acute pyrexia History of RF Possible community-acquired pneumonia Currently afebrile this a.m. but WBC count has stabilized at 18,000 ID following, continue ceftriaxone. Dr. Hoff 07/03 added azithromycin for atypical coverage Check urine for pneumococcal and Legionella antigen, send sputum culture Negative influenza A and B. 06/30 negative blood cultures 2. UA negative Negative Doppler bilateral lower extremities with fever Pro-calcitonin this a.m. elevated at 1.23, 06/30. Repeat 1.28. MSK: History of osteoarthritis of hip PT evaluate and treat out of bed FEN: Hyponatremia Hyperkalemia Hyper magnesium Hyperphosphatemia Replace electrolytes as clinically indicated Access -Utilize peripheral IV. Central line if indicated Prophylaxis -GI -pantoprazole -DVT-SCD/heparin subcu Level 3 follow-up
--- NOTE | 2018-07-04 07:58 | P.PNCA ---
Addendum entered and electronically signed by Josiah Elmore MD 07/04/18 09:49 : more SOB today. + BLE edema worse. + 7 lbs since admission. CXR intersitial edema EF normal. Moderate aortic valve bioprosthetic stenosis. PA pressures not able to be documented CKD Cr 2.5-3.0 Lasix 40 mg IV BID DC amlodipine due to BLE edema. avoid AVN blocking agents due to CHB start hydralazine Original Note: Subjective Interval history: The patient reports he is still short of breath but breathing better today. + Orthopnea. He denies any lightheadedness, dizziness, near syncope. He denies any fever, chills. Physical Exam Vital signs: Vital Signs 07/03/18 09:28 07/03/18 09:31 07/03/18 10:59 Temperature 98.1 F Pulse Rate 59 L Respiratory Rate 23 22 20 Blood Pressure 162/74 H Pulse Oximetry 96 07/03/18 12:34 07/03/18 15:00 07/03/18 15:53 Temperature 98.3 F Pulse Rate 56 L 61 Respiratory Rate 18 20 Blood Pressure 128/65 Pulse Oximetry 95 96 96 07/03/18 16:00 07/03/18 17:26 07/03/18 19:00 Temperature Pulse Rate 61 76 Respiratory Rate 18 18 Blood Pressure Pulse Oximetry 94 L 07/03/18 19:30 07/03/18 20:55 07/03/18 20:57 Temperature 97.9 F Pulse Rate 64 60 Respiratory Rate 20 26 H Blood Pressure 157/70 H Pulse Oximetry 95 96 07/03/18 23:00 07/03/18 23:19 07/04/18 00:00 Temperature 98.2 F Pulse Rate 61 66 Respiratory Rate 22 Blood Pressure 165/75 H Pulse Oximetry 97 95 07/04/18 02:20 07/04/18 03:00 07/04/18 03:31 Temperature 98.3 F Pulse Rate 63 60 Respiratory Rate 24 Blood Pressure 162/80 H Pulse Oximetry 92 L 97 07/04/18 03:38 07/04/18 06:00 07/04/18 07:00 Temperature 98.7 F Pulse Rate 72 62 Respiratory Rate 28 H 22 Blood Pressure 149/67 H Pulse Oximetry 92 L 92 L Intake & Output 07/03/18 07/04/18 07/04/18 18:59 06:59 18:59 Intake Total 1550 / 1550 480 / 480 Output Total 850 / 850 475 / 475 Balance 700 / 700 5 / 5 Weight 200 lb 9.93 oz Intake: IV 750 / 750 Azithromycin Inj 500 MG In NS 250 / 250 Inj 250 ML @ 250 mls/hr IV.SIG Q24H [facility]IS Rx#:[id number] NS Inj 1,000 ML @ 75 mls/hr IV. 400 / 400 SIG .[id number] GLENIS Rx#:[id number] Rocephin Inj 1,000 MG In NS Inj 100 / 100 100 ML @ 200 mls/hr IV.SIG Q24H GLENIS Rx#:[id number] Oral 800 / 800 480 / 480 Output: Urine 850 / 850 475 / 475 Narrative: GENERAL: Well-developed well-nourished. In no acute distress. NECK: No carotid bruits. No JVD. CARDIOVASCULAR: Regular rate and rhythm. No murmur appreciated. RESPIRATORY: No accessory muscle use. Clear to auscultation. Breath sounds equal bilaterally. MUSCULOSKELETAL: No clubbing or cyanosis. 2+ bilateral lower extremity edema. NEUROLOGICAL: Awake and alert. Normal speech. Assessment and Plan - Plan Assessment: Patient admitted as transfer from [facility] with CHB and junctional escape rhythm, hemodynamically stable in the setting of ADHF, fever, leukocytosis, and CKD stage 3. There was concern for possible bacterial endocarditis in this setting, however transthoracic echocardiogram and transesophageal echocardiogram did not reveal any valvular vegetations. LV systolic function is normal. No adynamic with significant valvular disease. Given he is hemodynamically stable with junctional escape, will hold off on placement of dual-chamber permanent pacemaker pending ID recommendations as we follow blood culture results and further infectious workup. -CHB, with junctional escape rhythm -HFpEF -Lower extremity edema -Anasarca with lower extremity edema and albumin 2.4 -SIRS criteria (fever, leukocytosis, hypoxemia) -CKD stage 3, with SO -CAD, asymptomatic Recommendations: -Leukocytosis with Blood Cx NGTD x 3 days. Please consider hematology consultation -Hold off on PPM placement as long as patient is hemodynamically stable pending okay from ID; PPM placement possibly Wednesday if cultures neg. -continue transcutaneous pacer pads for now -no AVN blocking agents -Nephrology following for SO on CKD -Continue home ASA 81mg daily -Continue diuresis will continue to follow with you. - Attending Attestation ----- Bradycardia - sinus rhythm with complete heart block and accelerated AV junctional rhythm. Difficult to see p waves on telemetry. repeat EKG fever/leukocytosis - negative cultures. negative DANYELLE. PPM when cleared by ID. possible Tues.
[2018-07-04] MEDS: Senna/Docusate Sodium 8.6/50 MG Tablet PO SCH ×2 (08:13→20:55)
[2018-07-04] MEDS: amLODIPine 5 MG Tablet PO SCH (08:13)
[2018-07-04] MEDS: Calcitriol 0.25 MCG Capsule PO SCH (08:14)
[2018-07-04] MEDS: Azithromycin Inj 500 MG in Sodium Chlor 0.9% Inj 250 ML IV.SIG SCH (08:14)
[2018-07-04] MEDS: Heparin - SQ 10,000 UNITS/ML Vial SQ SCH ×2 (08:14→20:55)
[2018-07-04] MEDS: Insulin Detemir Inj 1,000 UNIT/10 ML Vial SQ SCH ×2 (08:43→20:55)
[2018-07-04] MEDS: Insulin NovoLIN Regular Correctional Sugar Inj SQ SCH ×4 (08:53→20:55)
[2018-07-04] MEDS ORDERED: Sodium Polystyrene Sulfonate/Sorbitol Liq 15 GM/60 ML UDC PO ONE (09:00)
--- NOTE | 2018-07-04 11:03 | P.PNID ---
Subjective Remarks: Patient is sitting up in a bedside chair. Still gets coughing spells. No sputum production. No fever. Receiving diuretics. Denies chills. Denies chest pain. Blood cultures no growth. DANYELLE did not reveal any vegetation. White blood cell count remain elevated. Patient is reported to to have increased white blood cell count for some time. 72-year-old white male who has a history of aortic valve replacement in 2010. The patient presented to the [facility] in [place] and was felt to be in complete heart block. He was transferred to [facility] for further evaluation. The patient was noted to have fever with temperature of 102 degrees yesterday and white count was elevated at 21.9. The patient notes that he has had a head cold with coughing, which began 2 weeks ago. He notes that he was having pain behind the eyes and the cough was not improving. He took cough medications, but he continued with the cough. He has had no sputum production. He notes having shaking chills before he went to the [facility] for evaluation from the [facility]. Past Medical History: PAST MEDICAL HISTORY: Diabetes mellitus, hypertension, hyperlipidemia, coronary artery disease, chronic heart failure, chronic kidney disease stage III, history of aortic valve replacement in 2010. Bilateral hip replacement Oct and March 2018. Allergies/Adverse Reactions: Allergies Ojuznft-Sxs-Ntx Reductase Inhibitor Allergy (Severe, Verified 04/12/18 05:50) muscle weakness atorvastatin Allergy (Mild, Verified 04/12/18 05:50) Objective Vital Signs 07/03/18 10:59 07/03/18 12:34 07/03/18 15:00 Temperature 98.1 F 98.3 F Pulse Rate 59 L 56 L 61 Respiratory Rate 20 18 20 Blood Pressure 162/74 H 128/65 Pulse Oximetry 96 95 96 07/03/18 15:53 07/03/18 16:00 07/03/18 17:26 Temperature Pulse Rate 61 Respiratory Rate 18 18 Blood Pressure Pulse Oximetry 96 94 L 07/03/18 19:00 07/03/18 19:30 07/03/18 20:55 Temperature 97.9 F Pulse Rate 76 64 Respiratory Rate 20 Blood Pressure 157/70 H Pulse Oximetry 95 96 07/03/18 20:57 07/03/18 23:00 07/03/18 23:19 Temperature 98.2 F Pulse Rate 60 61 66 Respiratory Rate 26 H 22 Blood Pressure 165/75 H Pulse Oximetry 97 07/04/18 00:00 07/04/18 02:20 07/04/18 03:00 Temperature Pulse Rate 63 Respiratory Rate Blood Pressure Pulse Oximetry 95 92 L 07/04/18 03:31 07/04/18 03:38 07/04/18 06:00 Temperature 98.3 F Pulse Rate 60 72 Respiratory Rate 24 28 H Blood Pressure 162/80 H Pulse Oximetry 97 92 L 07/04/18 07:00 07/04/18 09:24 Temperature 98.7 F Pulse Rate 62 63 Respiratory Rate 22 22 Blood Pressure 149/67 H Pulse Oximetry 92 L 93 L Intake & Output 07/03/18 07/04/18 07/04/18 18:59 06:59 18:59 Intake Total 1550 / 1550 480 / 480 Output Total 850 / 850 475 / 475 Balance 700 / 700 5 / 5 Weight 91 kg Intake: IV 750 / 750 Azithromycin Inj 500 MG In NS 250 / 250 Inj 250 ML @ 250 mls/hr IV.SIG Q24H [facility] Rx#:[id number] NS Inj 1,000 ML @ 75 mls/hr IV. 400 / 400 SIG .[id number] [facility] Rx#:[id number] Rocephin Inj 1,000 MG In NS Inj 100 / 100 100 ML @ 200 mls/hr IV.SIG Q24H [facility] Rx#:[id number] Oral 800 / 800 480 / 480 Output: Urine 850 / 850 475 / 475 07/03/18 10:45 Urine - Clean Catch Urine Streptococcus pneumoniae Antigen ( M - Final Presumptive negative for streptococcus pneumoniae antigen, suggesting no current or recent infection. Infection due to Streptococcus pneumoniae cannot be ruled out since the antigen present in the sample may be below the detection limit of the test. 07/03/18 10:45 Urine - Clean Catch Urine Legionella Antigen - Final Presumptive negative for Legionella pneumophila serogroup 1 antigen in urine, suggesting no recent or recurrent infection. Infection due to Legionella cannot be ruled out since other serogroups and species may cause disease, antigen may not be present in urine in early infection, and the level of antigen present in the urine may be below the detection limit of the test. 06/30/18 09:55 Blood - Peripheral Aerobic Blood Culture - Preliminary No growth in 3 days 06/30/18 09:55 Blood - Peripheral Anaerobic Blood Culture - Preliminary No growth in 3 days 06/30/18 09:50 Blood - Peripheral Aerobic Blood Culture - Preliminary No growth in 3 days 06/30/18 09:50 Blood - Peripheral Anaerobic Blood Culture - Preliminary No growth in 3 days Lab - Hematology Results 07/03/18 07/04/18 03:39 04:06 WBC 19.3 H 18.2 H RBC 3.51 L 3.40 L Hgb 10.3 L 9.9 L Hct 31.0 L 30.4 L MCV 88.3 89.6 MCH 29.5 29.1 MCHC 33.4 32.4 RDW 14.7 14.9 Plt Count 352 372 MPV 10.1 9.9 Prelim Diff (Auto) Slide review pending Neut % (Auto) 47.5 Lymph % (Auto) 40.7 Rooks % (Auto) 7.6 Eos % (Auto) 3.4 Baso % (Auto) 0.8 Neut # (Auto) 9.2 H Lymph # (Auto) 7.9 H Rooks # (Auto) 1.5 H Eos # (Auto) 0.7 H Baso # (Auto) 0.1 WBC Differential Manual diff final Seg Neuts % (Manual) 52 Lymphocytes % (Manual) 36 Monocytes % (Manual) 6 Eosinophils % (Manual) 3 Basophils % (Manual) 2 Promyelocytes % (Man) 1 H Abs Neuts (Manual) 10.2 H Differential Comment . Platelet Estimate Normal Platelet Morphology Normal Lab - Chemistry Results 07/02/18 07/02/18 07/02/18 12:20 12:21 17:16 Sodium Potassium Chloride Carbon Dioxide Anion Gap BUN Creatinine Estimated GFR POC Glucose 231 H 227 H 290 H Random Glucose Calcium Phosphorus Magnesium Total Bilirubin AST ALT Alkaline Phosphatase Total Protein Albumin Procalcitonin 07/02/18 07/03/18 07/03/18 21:11 03:39 03:39 Sodium 131 L Potassium 5.0 Chloride 99 Carbon Dioxide 19.2 L Anion Gap 13 BUN 86 H Creatinine 2.99 H Estimated GFR 21 L POC Glucose 248 H Random Glucose 163 H Calcium 8.2 L Phosphorus 5.5 H Magnesium 2.6 H Total Bilirubin 0.5 AST 19 ALT 18 Alkaline Phosphatase 76 Total Protein 7.3 Albumin 2.7 L Procalcitonin 1.28 H 07/03/18 07/03/18 07/03/18 08:09 11:31 13:40 Sodium 131 L Potassium 4.9 Chloride 97 L Carbon Dioxide 18.8 L Anion Gap 15 BUN 90 H Creatinine 2.93 H Estimated GFR 21 L POC Glucose 173 H 213 H Random Glucose 177 H Calcium 8.6 Phosphorus Magnesium Total Bilirubin 0.5 AST 21 ALT 19 Alkaline Phosphatase 77 Total Protein 7.2 Albumin 2.7 L Procalcitonin 07/03/18 07/03/18 07/04/18 16:09 20:42 04:06 Sodium 129 L Potassium 5.2 H Chloride 97 L Carbon Dioxide 17.6 L Anion Gap 14 BUN 98 H Creatinine 2.76 H Estimated GFR 23 L POC Glucose 148 H 190 H Random Glucose 162 H Calcium 8.8 Phosphorus Magnesium 2.7 H Total Bilirubin 0.5 AST 25 ALT 19 Alkaline Phosphatase 75 Total Protein 7.4 Albumin 2.8 L Procalcitonin 07/04/18 08:29 Sodium Potassium Chloride Carbon Dioxide Anion Gap BUN Creatinine Estimated GFR POC Glucose 181 H Random Glucose Calcium Phosphorus Magnesium Total Bilirubin AST ALT Alkaline Phosphatase Total Protein Albumin Procalcitonin Imaging: ITS Impressions Abdomen/Bladder Ultrasound 06/30/18 00:00 CONCLUSION: No evidence of hydronephrosis. Chest CT 06/30/18 00:00 CONCLUSION: 1. Findings probably on the basis of mild failure with patchy consolidation of both lungs and mild thickening of the interlobular septa as well as small right and tiny left pleural effusions. 2. Right lower lobe consolidation likely compressive/dependent atelectasis. 3. Previous median sternotomy and aortic valve replacement. Nonunion of the manubrial defect. 4. Coronary artery calcification. 5. A few scattered nonspecific upper limits of normal size mediastinal lymph nodes. Venous Doppler Study 06/30/18 00:00 CONCLUSION: 1. The study is negative for bilateral lower extremity deep venous thrombosis. Chest X-Ray 07/04/18 06:00 CONCLUSION: Slight interval worsening in aeration. Physical Exam: PHYSICAL EXAMINATION: GENERAL: Awake and alert and oriented. HEENT: Head is atraumatic. Extraocular movements grossly intact. Pupils reactive to light. No icterus. No conjunctival erythema. Throat, oropharynx: Moist mucosa. No visible lesions. No thrush. NECK: Supple without adenopathy. LUNGS: Basilar rales. HEART: Irregular, S1 and S2. No audible murmur. ABDOMEN: Bowel sounds present. Soft, no tenderness appreciated. EXTREMITIES: No clubbing, cyanosis or 2+ edema. SKIN: No rash. NEUROLOGIC: Non focal. PSYCHIATRIC: Calm and cooperative. Assessment and Plan - Plan IMPRESSION: Fever and leukocytosis. Questionable etiology. Temp improved. Nonproductive cough. Interstitial infiltrates on chest x-ray. Possible atypical pneumonia versus viral etiology vs CHF. Complete heart block. Aortic valve replacement status. RECOMMENDATIONS: 1. Continue ceftriaxone intravenous. Also on Azithromycin by [facility]. 2. Follow mycoplasma serology. 3. Check procalcitonin level. 4. Consider Hematology consult for persistent leukocytosis. 5. Monitor white blood cell count. 6. Monitor temperature. I think pacemaker can be inserted if he remains afebrile.
[2018-07-04] MEDS: hydrALAZINE 50 MG Tablet PO SCH ×2 (12:00→17:02)
[2018-07-04] MEDS: Morphine Sulfate Inj 2 MG/ML Vial IV.PUSH PRN (14:07)
--- NOTE | 2018-07-04 15:33 | P.PNNP ---
Subjective Interval history: Reports cough and increased shortness of breath when coughing. Creatinine slightly improved at 2.76, good urinary output. <Zuleika Vasquez - Last Filed: 07/04/18 16:01> Physical Exam Vital signs: Vital Signs 07/03/18 15:53 07/03/18 16:00 07/03/18 17:26 Temperature Pulse Rate 61 Respiratory Rate 18 18 Blood Pressure Pulse Oximetry 96 94 L 07/03/18 19:00 07/03/18 19:30 07/03/18 20:55 Temperature 97.9 F Pulse Rate 76 64 Respiratory Rate 20 Blood Pressure 157/70 H Pulse Oximetry 95 96 07/03/18 20:57 07/03/18 23:00 07/03/18 23:19 Temperature 98.2 F Pulse Rate 60 61 66 Respiratory Rate 26 H 22 Blood Pressure 165/75 H Pulse Oximetry 97 07/04/18 00:00 07/04/18 02:20 07/04/18 03:00 Temperature Pulse Rate 63 Respiratory Rate Blood Pressure Pulse Oximetry 95 92 L 07/04/18 03:31 07/04/18 03:38 07/04/18 06:00 Temperature 98.3 F Pulse Rate 60 72 Respiratory Rate 24 28 H Blood Pressure 162/80 H Pulse Oximetry 97 92 L 07/04/18 07:00 07/04/18 09:24 07/04/18 11:00 Temperature 98.7 F 98.0 F Pulse Rate 62 63 63 Respiratory Rate 22 22 22 Blood Pressure 149/67 H 149/67 H Pulse Oximetry 92 L 93 L 95 07/04/18 11:52 Temperature Pulse Rate Respiratory Rate 22 Blood Pressure Pulse Oximetry Intake & Output 07/03/18 07/04/18 07/04/18 18:59 06:59 18:59 Intake Total 1550 / 1550 480 / 480 350 / 350 Output Total 850 / 850 475 / 475 Balance 700 / 700 5 / 5 350 / 350 Weight 91 kg Intake: IV 750 / 750 350 / 350 Azithromycin Inj 500 MG In NS 250 / 250 250 / 250 Inj 250 ML @ 250 mls/hr IV.SIG Q24H [facility] Rx#:[id number] NS Inj 1,000 ML @ 75 mls/hr IV. 400 / 400 SIG .[id number] [facility] Rx#:[id number] Rocephin Inj 1,000 MG In NS Inj 100 / 100 100 / 100 100 ML @ 200 mls/hr IV.SIG Q24H [facility] Rx#:[id number] Oral 800 / 800 480 / 480 Output: Urine 850 / 850 475 / 475 Other: Date of Last Bowel Movement 07/02/18 Narrative: GENERAL: AOx3, comfortable appearing SKIN: Warm and dry. HEAD: Atraumatic. Normocephalic. EYES: Pupils equal and round. No scleral icterus. No injection or drainage. ENT: No nasal bleeding or discharge. Mucous membranes pink and moist. NECK: Trachea midline. No JVD. CARDIOVASCULAR: Regular rate and rhythm. No murmurs appreciated. 2+ edema bilateral LE up to knees RESPIRATORY: No accessory muscle use. Clear to auscultation. Breath sounds equal bilaterally. NEUROLOGICAL: Awake and alert. No obvious cranial nerve deficits. Normal speech. PSYCHIATRIC: Appropriate mood and affect; insight and judgment normal. <Zuleika Vasquez - Last Filed: 07/04/18 16:01> Vital signs: Vital Signs 07/03/18 19:00 07/03/18 19:30 07/03/18 20:55 Temperature 97.9 F Pulse Rate 76 64 Respiratory Rate 20 Blood Pressure 157/70 H Pulse Oximetry 95 96 07/03/18 20:57 07/03/18 23:00 07/03/18 23:19 Temperature 98.2 F Pulse Rate 60 61 66 Respiratory Rate 26 H 22 Blood Pressure 165/75 H Pulse Oximetry 97 07/04/18 00:00 07/04/18 02:20 07/04/18 03:00 Temperature Pulse Rate 63 Respiratory Rate Blood Pressure Pulse Oximetry 95 92 L 07/04/18 03:31 07/04/18 03:38 07/04/18 06:00 Temperature 98.3 F Pulse Rate 60 72 Respiratory Rate 24 28 H Blood Pressure 162/80 H Pulse Oximetry 97 92 L 07/04/18 07:00 07/04/18 09:24 07/04/18 11:00 Temperature 98.7 F 98.0 F Pulse Rate 62 63 63 Respiratory Rate 22 22 22 Blood Pressure 149/67 H 149/67 H Pulse Oximetry 92 L 93 L 95 07/04/18 11:52 07/04/18 15:00 07/04/18 16:00 Temperature 97.6 F Pulse Rate 60 Respiratory Rate 22 22 22 Blood Pressure 136/67 Pulse Oximetry 96 07/04/18 17:03 Temperature Pulse Rate 58 L Respiratory Rate 18 Blood Pressure Pulse Oximetry Intake & Output 07/03/18 07/04/18 07/04/18 18:59 06:59 18:59 Intake Total 1550 / 1550 480 / 480 350 / 350 Output Total 850 / 850 475 / 475 Balance 700 / 700 5 / 5 350 / 350 Weight 91 kg Intake: IV 750 / 750 350 / 350 Azithromycin Inj 500 MG In NS 250 / 250 250 / 250 Inj 250 ML @ 250 mls/hr IV.SIG Q24H [facility] Rx#:[id number] NS Inj 1,000 ML @ 75 mls/hr IV. 400 / 400 SIG .[id number] [facility] Rx#:[id number] Rocephin Inj 1,000 MG In NS Inj 100 / 100 100 / 100 100 ML @ 200 mls/hr IV.SIG Q24H [facility] Rx#:[id number] Oral 800 / 800 480 / 480 Output: Urine 850 / 850 475 / 475 Other: Date of Last Bowel Movement 07/04/18 <Usha Acevedo Q - Last Filed: 07/04/18 17:47> Assessment and Plan - Assessment (1) Acute kidney injury Code(s): N17.9 - Acute kidney failure, unspecified Status: Acute Plan: Acute kidney injury with creatinine of 2.60 on day of consult. SO possibly ATN from decreased cardiac output/ third spacing/ infection History of chronic kidney disease with mild proteinuria possibly from diabetic or hypertensive renal disease. Baseline creatinine not available but creatinine noted to be 1.20 April 2011 Renal ultrasound with no evidence of stone, masses or hydronephrosis Plan HCO3 low will add sodium bicarbonate. SPEP reviewed, will order immunofixation Monitor strict I+O Continue Lasix BID, Fluid restriction added. Potassium level at 5.2, Kayexalate given, low potassium diet added Avoid nephrotoxins including IV contrast and aminoglycosides. Plan for pacemaker placement when cultures are negative, thus far negative, cleared per ID Will monitor urinary output and BMP Labs in AM (2) Anemia Code(s): D64.9 - Anemia, unspecified Status: Acute Plan: Hemoglobin stable Most likely from chronic disease (3) Complete heart block by electrocardiogram Code(s): I44.2 - Atrioventricular block, complete Status: Acute Plan: Plan for pacemaker Creatinine improving. cleared per Nephrology for pacemaker placement (4) Sepsis Code(s): A41.9 - Sepsis, unspecified organism Status: Acute Plan: ID consulted and cultures negative thus far <Zuleika Vasquez - Last Filed: 07/04/18 16:01> - Assessment (1) Acute kidney injury Code(s): N17.9 - Acute kidney failure, unspecified Status: Acute Plan: Patient seen and examined, agree with above. Creatinine is slightly better, Continue Lasix. (2) Anemia Code(s): D64.9 - Anemia, unspecified Status: Acute (3) Complete heart block by electrocardiogram Code(s): I44.2 - Atrioventricular block, complete Status: Acute (4) Sepsis Code(s): A41.9 - Sepsis, unspecified organism Status: Acute <Larry Acevedo - Last Filed: 07/04/18 17:47>
[2018-07-04] MEDS: Sodium Bicarbonate 650 MG Tablet PO SCH (20:55)
[2018-07-05] MEDS: Chlorhexidine Gluconate 2% 1 Pack (2 Cloths) TOPICAL SCH (03:53)
[2018-07-05 04:49] LABS: Baso # (Auto) 0.1 th/mm3 (0.0-0.2); Baso % (Auto) 0.7 % (0.0-2.0); Eos # (Auto) 0.2 th/mm3 (0.0-0.4); Eos % (Auto) 1.4 % (0.0-4.0); Hematocrit 29.9 % (39.0-51.0); Hemoglobin 9.6 gm/dL (13.0-17.0); Lymph # (Auto) 4.9 th/mm3 (1.0-4.8); Lymph % (Auto) 33.6 % (9.0-44.0); Mean Corpuscular HGB Conc 32.2 % (32.0-36.0); Mean Corpuscular Hemoglobin 28.8 pg (27.0-34.0); Mean Corpuscular Volume 89.6 fL (80.0-100.0); Mean Platelet Volume 10.3 fL (7.0-11.0); Mono # (Auto) 1.4 th/mm3 (0.0-0.9); Mono % (Auto) 9.8 % (0.0-8.0); Neut % (Auto) 54.5 % (16.0-70.0); Platelet Count 393 th/mm3 (150-450); Red Blood Count 3.33 mil/mm3 (4.50-5.90); Red Cell Distribution Width 14.7 % (11.6-17.2); White Blood Count 14.7 th/mm3 (4.0-11.0)
[2018-07-05 04:55] LABS: INR 1.1 Ratio; Prothrombin Time 10.8 sec (9.8-11.6)
[2018-07-05 05:10] LABS: Calcium 8.5 mg/dL (8.5-10.1); Carbon Dioxide 18.2 meq/L (21.0-32.0); Magnesium 2.9 mg/dL (1.5-2.5); Phosphorus 6.5 mg/dL (2.5-4.9); Potassium 4.5 meq/L (3.5-5.1)
--- NOTE | 2018-07-05 05:40 | XR ---
EXAM DATE: 07/05/2018 5:18 AM EDT AGE/SEX: 72 years / Male INDICATIONS: Short of breath. CLINICAL DATA: This is the patient's subsequent encounter. Patient reports that signs and symptoms h ave been present for 4 - 6 days and indicates a pain score of 0/10. MEDICAL/SURGICAL HISTORY: Hypertension. Diabetes. CABG. AVR. COMPARISON: C, CHEST 1V SINGLE AP, 07/04/2018. . FINDINGS: Hazy asymmetrically right-sided primarily perihilar and basilar pleural-parenchymal opacity is again noted, not significant changed from previous exam. Cardiac contours are unchanged with note of previo us sternotomy and aortic valve replacement. CONCLUSION: No significant change Electronically signed by: Luis Eduardo Whalen MD 07/05/2018 5:39 AM EDT
--- NOTE | 2018-07-05 08:19 | P.PNCA ---
Subjective Interval history: Patient sitting on the side of the bed asleep upon arrival. He reports he still having shortness of breath when he tries to lie flat. He still has some leg swelling. He reports not much urine output and still with positive fluid balance. He denies any lightheadedness, dizziness, passing out. Physical Exam Vital signs: Vital Signs 07/04/18 09:24 07/04/18 11:00 07/04/18 11:52 Temperature 98.0 F Pulse Rate 63 63 Respiratory Rate 22 22 22 Blood Pressure 149/67 H Pulse Oximetry 93 L 95 07/04/18 15:00 07/04/18 16:00 07/04/18 17:03 Temperature 97.6 F Pulse Rate 60 58 L Respiratory Rate 22 22 18 Blood Pressure 136/67 Pulse Oximetry 96 07/04/18 19:00 07/04/18 19:15 07/04/18 20:09 Temperature 97.9 F Pulse Rate 59 L 65 Respiratory Rate 22 Blood Pressure 157/86 H Pulse Oximetry 95 95 07/04/18 22:30 07/04/18 22:41 07/04/18 23:00 Temperature Pulse Rate 67 73 Respiratory Rate 20 Blood Pressure Pulse Oximetry 96 07/04/18 23:15 07/05/18 03:00 07/05/18 03:18 Temperature 97.7 F 97.9 F Pulse Rate 68 65 68 Respiratory Rate 24 22 Blood Pressure 160/71 H 161/79 H Pulse Oximetry 96 96 07/05/18 03:51 07/05/18 06:11 Temperature Pulse Rate 67 Respiratory Rate 18 22 Blood Pressure Pulse Oximetry Intake & Output 07/04/18 07/05/18 07/05/18 18:59 06:59 18:59 Intake Total 950 / 950 290 / 290 Output Total 340 / 340 460 / 460 Balance 610 / 610 -170 / -170 Weight 205 lb 0.478 oz Intake: IV 350 / 350 Azithromycin Inj 500 MG In NS 250 / 250 Inj 250 ML @ 250 mls/hr IV.SIG Q24H [facility] Rx#:[id number] Rocephin Inj 1,000 MG In NS Inj 100 / 100 100 ML @ 200 mls/hr IV.SIG Q24H [facility] Rx#:[id number] Oral 600 / 600 290 / 290 Output: Urine 340 / 340 460 / 460 Other: # Incontinent Voids 1 Date of Last Bowel Movement 07/04/18 07/04/18 # Bowel Movements 1 Narrative: GENERAL: Well-developed well-nourished. In no acute distress. NECK: No carotid bruits. No JVD. CARDIOVASCULAR: Regular rate and rhythm. No murmur appreciated. RESPIRATORY: No accessory muscle use. Clear to auscultation. Diminished breath sounds in the bases. MUSCULOSKELETAL: No clubbing or cyanosis. 1+ lower extrema edema. NEUROLOGICAL: Awake and alert. Normal speech. Assessment and Plan - Plan Assessment: Patient admitted as transfer from [facility] with CHB and junctional escape rhythm, hemodynamically stable in the setting of ADHF, fever, leukocytosis, and CKD stage 3. There was concern for possible bacterial endocarditis in this setting, however transthoracic echocardiogram and transesophageal echocardiogram did not reveal any valvular vegetations. LV systolic function is normal. No adynamic with significant valvular disease. Given he is hemodynamically stable with junctional escape, will hold off on placement of dual-chamber permanent pacemaker pending ID recommendations as we follow blood culture results and further infectious workup. -CHB, with junctional escape rhythm -HFpEF -Lower extremity edema -Anasarca with lower extremity edema and albumin 2.4 -SIRS criteria (fever, leukocytosis, hypoxemia), cultures negative to date, cleared by ID for pacemaker -CKD stage 3, with SO -CAD, asymptomatic -Moderate aortic bioprosthesis stenosis on echo, normal EF -Hypertension Recommendations: -Leukocytosis with Blood Cx NGTD x 3 days. Please consider hematology consultation -Hold off on PPM placement pending improvement in dyspnea; tentatively scheduled for . -continue transcutaneous pacer pads for now -no AVN blocking agents -Nephrology following for SO on CKD -Continue home ASA 81mg daily -Continue diuresis, consider increasing Lasix dose -Amlodipine discontinued with lower extremity swelling, hydralazine added, consider titrating dose will continue to follow with you. Discussed Condition With: Patient, RN, Dr. Elmore, Dr. Santillan - Attending Attestation still SOB, but he states "improved". cannot lie flat. weight + 2 kg since yest. Still I/O. not much PO H2O. on lasix 40 mg IV BID. UOP 1300/24 hrs consider addition of metolazone 2.5 BID, will leave it up to nephrology. Cr stable. HR 60-70 bpm with sinus rhythm and AV junctional escape rhythm. cleared by ID for PPM discussed with Dr. Santillan, defer PPM today due to inability to lie flat. Consider Wed or
[2018-07-05] MEDS: Calcitriol 0.25 MCG Capsule PO SCH (08:34)
[2018-07-05] MEDS: Azithromycin Inj 500 MG in Sodium Chlor 0.9% Inj 250 ML IV.SIG SCH (08:34)
[2018-07-05] MEDS: Sodium Bicarbonate 650 MG Tablet PO SCH ×2 (08:35→21:19)
[2018-07-05] MEDS: hydrALAZINE 50 MG Tablet PO SCH ×3 (08:35→17:36)
[2018-07-05] MEDS: Senna/Docusate Sodium 8.6/50 MG Tablet PO SCH ×2 (08:35→21:19)
[2018-07-05] MEDS: Heparin - SQ 10,000 UNITS/ML Vial SQ SCH ×2 (08:36→21:18)
--- NOTE | 2018-07-05 08:38 | P.PNCC ---
Subjective Subjective Remarks/Hospital Course: This is a 72-year-old male with a history of prior aortic valve pathology status post an aortic valve replacement in 2010 here at [facility]. He has been seeing his primary care doctor at the [place] over the last 2 weeks for increasing shortness of breath and lower extremity edema. He was placed on furosemide with some symptomatic relief. Today, he was in clinic and he stated he continued to feel worsening of his shortness of breath today. EKG in clinic demonstrated third-degree heart block and the patient was sent from clinic to the [facility] in [place]. [facility] in [place] admitted the patient, however no electrophysiology or cardiology consultation was available at the [facility], and the [place] asked [facility] to accept the patient in transfer for workup of his third-degree heart block. Per the [place] reports, the patient had a ventricular rate in the 30s-40s and was intermittently transcutaneously paced. Upon arrival to our institution, the patient has a ventricular rate of 70s. Repeat EKG still demonstrates that the patient has P waves and QRS complexes, but it does appear that the patient has complete heart block. His QRS complex is narrow, which would suggest that his ventricular rhythm is somewhat junctional in nature, but he clearly has regular P waves which are not associated in any way with his QRS complex. The patient is here still endorses mild shortness of breath. He denies any chest pain. He states that he has not had a recent echocardiogram. Does endorse lower extremity edema. Endorses mild dyspnea on exertion which has been very slowly increasing over the last 2 weeks. Denies orthopnea. Denies PND. Denies fever and chills. He is febrile to 102 here on admission, and other than he states approximately 2-3 weeks ago he felt like he had "head cold", he endorses no other infectious symptoms. He denies any runny nose, cough, congestion. Denies nausea, vomiting, diarrhea, constipation, abdominal pain. The remainder of the review of systems is negative. Dr. Varun Santillan with cardiology has been informed of the patient's admission and has accepted the patient in consultation from the [place]. 06/30: Currently afebrile. Currently on a Venturi mask 30% satting 92-94%. Some intravascular prominence on chest x-ray this a.m. Was previously on furosemide 40 mg twice daily and spironolactone 25 mg daily for pulmonary edema started 06/22 by his primary care physician. Creatinine currently 2.2. Baseline is 1.4-1.6. Complaining of edema in bilateral lower extremities which is new for him. 2d echocardiogram results pending. Denies chest pain 07/01: 1 issue of significant bradycardia overnight resolved within seconds. Currently hemodynamically stable. Creatinine increased to 2.6 overnight. Currently on 4 L nasal cannula. 07/02: Afebrile. Creatinine increased to 3.3. Received a bolus of crystalloid and currently normal saline at 75 cc an hour. Currently on 2 L nasal cannula. 07/03: Sitting up in chair complains of subjective shortness of breath. Basilar crackles on exam, chest x-ray shows stable pulmonary edema. Will DC IV fluids given Lasix 60 mg IV 1 and evaluate response. Creatinine is 3 today. Urine output 650 mL in 24 hours. Overall weight 7 kg up since admission 07/04: Afebrile. Currently resting in chair in no acute distress. Noted electrolyte abnormalities this a.m. Remains a mild pulmonary edema. Currently in furosemide 40 g IV twice daily. SUBJECTIVE: 07/05: Afebrile. Currently on 3 L nasal cannula. Tentative plan for pacemaker placement today. Noted SPEP with elevated alpha-1 globulin gammaglobulin. Immunofixation ordered by nephrology. Objective Vital Signs / I&O: Vital Signs 07/04/18 09:24 07/04/18 11:00 07/04/18 11:52 Temperature 98.0 F Pulse Rate 63 63 Respiratory Rate 22 22 22 Blood Pressure 149/67 H Pulse Oximetry 93 L 95 07/04/18 15:00 07/04/18 16:00 07/04/18 17:03 Temperature 97.6 F Pulse Rate 60 58 L Respiratory Rate 22 22 18 Blood Pressure 136/67 Pulse Oximetry 96 07/04/18 19:00 07/04/18 19:15 07/04/18 20:09 Temperature 97.9 F Pulse Rate 59 L 65 Respiratory Rate 22 Blood Pressure 157/86 H Pulse Oximetry 95 95 07/04/18 22:30 07/04/18 22:41 07/04/18 23:00 Temperature Pulse Rate 67 73 Respiratory Rate 20 Blood Pressure Pulse Oximetry 96 07/04/18 23:15 07/05/18 03:00 07/05/18 03:18 Temperature 97.7 F 97.9 F Pulse Rate 68 65 68 Respiratory Rate 24 22 Blood Pressure 160/71 H 161/79 H Pulse Oximetry 96 96 07/05/18 03:51 07/05/18 06:11 Temperature Pulse Rate 67 Respiratory Rate 18 22 Blood Pressure Pulse Oximetry Intake & Output 07/04/18 07/05/18 07/05/18 18:59 06:59 18:59 Intake Total 950 / 950 290 / 290 Output Total 340 / 340 460 / 460 Balance 610 / 610 -170 / -170 Weight 93 kg Intake: IV 350 / 350 Azithromycin Inj 500 MG In NS 250 / 250 Inj 250 ML @ 250 mls/hr IV.SIG Q24H [facility] Rx#:[id number] Rocephin Inj 1,000 MG In NS Inj 100 / 100 100 ML @ 200 mls/hr IV.SIG Q24H [facility] Rx#:[id number] Oral 600 / 600 290 / 290 Output: Urine 340 / 340 460 / 460 Other: # Incontinent Voids 1 Date of Last Bowel Movement 07/04/18 07/04/18 # Bowel Movements 1 Result Diagrams: 07/05/18 03:28 07/05/18 03:28 Other Results: Microbiology 06/30/18 09:55 Blood - Peripheral Aerobic Blood Culture - Preliminary No growth in 4 days 06/30/18 09:55 Blood - Peripheral Anaerobic Blood Culture - Preliminary No growth in 4 days 06/30/18 09:50 Blood - Peripheral Aerobic Blood Culture - Preliminary No growth in 4 days 06/30/18 09:50 Blood - Peripheral Anaerobic Blood Culture - Preliminary No growth in 4 days 07/03/18 10:45 Urine - Clean Catch Urine Streptococcus pneumoniae Antigen ( M - Final Presumptive negative for streptococcus pneumoniae antigen, suggesting no current or recent infection. Infection due to Streptococcus pneumoniae cannot be ruled out since the antigen present in the sample may be below the detection limit of the test. 07/03/18 10:45 Urine - Clean Catch Urine Legionella Antigen - Final Presumptive negative for Legionella pneumophila serogroup 1 antigen in urine, suggesting no recent or recurrent infection. Infection due to Legionella cannot be ruled out since other serogroups and species may cause disease, antigen may not be present in urine in early infection, and the level of antigen present in the urine may be below the detection limit of the test. 06/30/18 15:30 Nasal Wash Influenza Types A,B Antigen - Final Negative for FLU A and B antigen Infection due to influenza A or B cannot be ruled out since the antigen present in the sample may be below the detection limit of the test. Imaging: Abdomen/Bladder Ultrasound 06/30/18 00:00 CONCLUSION: No evidence of hydronephrosis. Chest CT 06/30/18 00:00 CONCLUSION: 1. Findings probably on the basis of mild failure with patchy consolidation of both lungs and mild thickening of the interlobular septa as well as small right and tiny left pleural effusions. 2. Right lower lobe consolidation likely compressive/dependent atelectasis. 3. Previous median sternotomy and aortic valve replacement. Nonunion of the manubrial defect. 4. Coronary artery calcification. 5. A few scattered nonspecific upper limits of normal size mediastinal lymph nodes. Venous Doppler Study 06/30/18 00:00 CONCLUSION: 1. The study is negative for bilateral lower extremity deep venous thrombosis. Chest X-Ray 06/30/18 00:53 CONCLUSION: Interstitial prominence most characteristic of mild interstitial edema. Previous sternotomy. Chest X-Ray 07/01/18 07:58 CONCLUSION: Hypoaerated lungs with slightly less interstitial vascular prominence. Chest X-Ray 07/03/18 06:00 CONCLUSION: 1. Stable mild interstitial edema. 2. Developing mild bibasilar airspace disease, presumably atelectasis. Chest X-Ray 07/04/18 06:00 CONCLUSION: Slight interval worsening in aeration. Chest X-Ray 07/05/18 06:00 CONCLUSION: No significant change Objective Remarks: GENERAL: 72-year-old male currently resting in chair, complaining of shortness of breath currently on nasal cannula SKIN: Warm and dry. HEAD: Atraumatic. Normocephalic. EYES: Pupils equal and round about 3 mm bilaterally and reactive. No scleral icterus. No injection or drainage. ENT: No nasal bleeding or discharge. Mucous membranes pink and moist. NECK: Trachea midline. No appreciable JVD. CARDIOVASCULAR: Third-degree heart block on telemetry. No obvious murmurs are appreciated. Heart rate now 70 bpm RESPIRATORY: Few fine crackles appreciated bilaterally at the bases. No wheezing. Symmetrical excursion. GASTROINTESTINAL: Abdomen soft, non-tender, nondistended. Hypoactive bowel sounds are appreciated. MUSCULOSKELETAL: Extremities with trace to 1+ bilateral lower extremity edema. No obvious deformities. Negative Homans sign NEUROLOGICAL: Awake and alert. No obvious cranial nerve deficits. Motor grossly within normal limits. Five out of 5 muscle strength in the arms and legs. Normal speech. Assessment and Plan - Assessment and Plan Plan: Neuro/Psych: History of sensorineural hearing loss Acetaminophen 650 mg p.o. every 6 hours as needed fever Oxycodone 5 mg p.o. every 4 hours as needed pain 1 through 5 Morphine sulfate 2 mg IV every 2 hours as needed pain 6 through 10 CV: Third-degree heart block History of first-degree AV block Elevated troponin Elevated BNP Congestive heart failure History of essential hypertension Hyperlipidemia/triglyceridemia History of aortic valve replacement Dr. Santillan/cardiology consult. PPM placement tentatively planned for 07/05/2018 Continue on Zoll Pads, if any symptomatic bradycardia, low threshold for transvenous pacer placement. DANYELLE revealed EF 60-65%. LAE. PAP 52 mmHg. Troponin peaked at 0.77. Home medications are metoprolol tartrate 50 mg twice daily (on hold) and amlodipine 10 mg daily. 07/04 discontinued amlodipine 10 mg daily. Secondary to lower extremity edema. Started on hydralazine 50 mg 3 times daily by cardiology. Continue aspirin 81 mg daily Holding fish oil 1000 mg twice daily for dyslipidemia. Previously on furosemide 40 mg twice daily and Spironolactone 25 mg daily Currently on furosemide 40 mg IV twice daily Resp: Acute hypoxemic respiratory failure -resolving Currently on nasal cannula 3 L to maintain saturations greater than equal 90% On lung hyperinflation protocol with a EZPAP/PEP therapy Albuterol/ipratropium aerosols every 6 hours with albuterol aerosols every 2 hours as needed for dyspnea Previously on furosemide 40 mg p.o. daily and Spironolactone 25 mg daily. Chest x-ray on admission, and 07/05 revealed mild pulmonary edema CT thorax 06/30 - mild failure with patchy consolidation of both lungs and mild thickening of the interlobular septa as well as small right and tiny left pleural effusions. Right lower lobe consolidation likely compressive/dependent atelectasis. GI: Hypoalbuminemia History of splenectomy Currently cardiac/ADA diet Pantoprazole for GI prophylaxis Docusate sodium/senna 1 tablet twice daily for bowel regimen : Claire catheter if indicated for accurate I's and O's in a critically ill patient Endo: Diabetes mellitus type 2 Currently on insulin Novulin R with Accu-Cheks every before meals/at bedtime hours to maintain euglycemia/medium protocol Holding metformin 5 mg twice daily/home medication. Normally on insulin glargine 28 units at night and insulin aspart 5 units a.m., 8 units for lunch and 8 units at supper Insulin glargine 8 units subcu twice daily TSH was 0.711 Renal: Acute kidney injury in the setting of chronic kidney disease stage IIIa Probable l ATN Baseline creatinine defined as 1.4-1.6. Currently 2.5 Avoid nephrotoxic medications Urine output now 850 cc past 24 hours Ultrasound revealed no hydronephrosis Urine eosinophils negative Noted SPEP with bands in the gamma region. Hypoalbuminemia. Immunofixation ordered. FENA was 0.2. Nephrology consult appreciated. Fluid restriction ordered Heme: Leukocytosis Normocytic anemia History of ITP Monitor CBC daily. Follow trends. No indication for transfusion of blood products at this time ID: Acute pyrexia History of RF Possible community-acquired pneumonia Currently afebrile this a.m. but WBC count has stabilized at 14,000 ID following, continue ceftriaxone. Dr. Hoff 07/03 added azithromycin for atypical coverage Check urine for pneumococcal and Legionella antigen, send sputum culture Negative influenza A and B. 06/30 negative blood cultures 2. UA negative Negative Doppler bilateral lower extremities with fever Pro-calcitonin this a.m. elevated at 1.23, 06/30. Repeat 1.28. Now 1.06 MSK: History of osteoarthritis of hip PT evaluate and treat out of bed FEN: Hyponatremia Hyper magnesium Hyperphosphatemia Replace electrolytes as clinically indicated Access -Utilize peripheral IV. Central line if indicated Prophylaxis -GI -pantoprazole -DVT-SCD/heparin subcu Level 2 follow-up If stable post pacemaker placement we will sign off to hospitalist in a.m. 07/06.
[2018-07-05] MEDS: Insulin Detemir Inj 1,000 UNIT/10 ML Vial SQ SCH ×2 (08:58→22:00)
[2018-07-05] MEDS: Insulin NovoLIN Regular Correctional Sugar Inj SQ SCH ×4 (09:00→21:55)
--- NOTE | 2018-07-05 09:41 | P.PNNP ---
Subjective Interval history: Sitting up in chair. Creatinine improving at 2.46. Continues to have increased swelling. Unable to lie flat secondary to shortness of breath. <Zuleika Vasquez - Last Filed: 07/05/18 09:49> Physical Exam Vital signs: Vital Signs 07/04/18 11:00 07/04/18 11:52 07/04/18 15:00 Temperature 98.0 F 97.6 F Pulse Rate 63 60 Respiratory Rate 22 22 22 Blood Pressure 149/67 H 136/67 Pulse Oximetry 95 96 07/04/18 16:00 07/04/18 17:03 07/04/18 19:00 Temperature Pulse Rate 58 L 59 L Respiratory Rate 22 18 Blood Pressure Pulse Oximetry 07/04/18 19:15 07/04/18 20:09 07/04/18 22:30 Temperature 97.9 F Pulse Rate 65 Respiratory Rate 22 Blood Pressure 157/86 H Pulse Oximetry 95 95 96 07/04/18 22:41 07/04/18 23:00 07/04/18 23:15 Temperature 97.7 F Pulse Rate 67 73 68 Respiratory Rate 20 24 Blood Pressure 160/71 H Pulse Oximetry 96 07/05/18 03:00 07/05/18 03:18 07/05/18 03:51 Temperature 97.9 F Pulse Rate 65 68 67 Respiratory Rate 22 18 Blood Pressure 161/79 H Pulse Oximetry 96 07/05/18 06:11 Temperature Pulse Rate Respiratory Rate 22 Blood Pressure Pulse Oximetry Intake & Output 07/04/18 07/05/18 07/05/18 18:59 06:59 18:59 Intake Total 950 / 950 290 / 290 Output Total 340 / 340 460 / 460 Balance 610 / 610 -170 / -170 Weight 93 kg Intake: IV 350 / 350 Azithromycin Inj 500 MG In NS 250 / 250 Inj 250 ML @ 250 mls/hr IV.SIG Q24H [facility] Rx#:[id number] Rocephin Inj 1,000 MG In NS Inj 100 / 100 100 ML @ 200 mls/hr IV.SIG Q24H [facility] Rx#:[id number] Oral 600 / 600 290 / 290 Output: Urine 340 / 340 460 / 460 Other: # Incontinent Voids 1 Date of Last Bowel Movement 07/04/18 07/04/18 # Bowel Movements 1 Narrative: GENERAL: AOx3, comfortable appearing SKIN: Warm and dry. HEAD: Atraumatic. Normocephalic. EYES: Pupils equal and round. No scleral icterus. No injection or drainage. ENT: No nasal bleeding or discharge. Mucous membranes pink and moist. NECK: Trachea midline. No JVD. CARDIOVASCULAR: Regular rate and rhythm. No murmurs appreciated. 2+ edema bilateral LE up to knees RESPIRATORY: No accessory muscle use. Clear to auscultation. Breath sounds equal bilaterally. NEUROLOGICAL: Awake and alert. No obvious cranial nerve deficits. Normal speech. PSYCHIATRIC: Appropriate mood and affect; insight and judgment normal. <Zuleika Vasquez - Last Filed: 07/05/18 09:49> Vital signs: Vital Signs 07/04/18 19:00 07/04/18 19:15 07/04/18 20:09 Temperature 97.9 F Pulse Rate 59 L 65 Respiratory Rate 22 Blood Pressure 157/86 H Pulse Oximetry 95 95 07/04/18 22:30 07/04/18 22:41 07/04/18 23:00 Temperature Pulse Rate 67 73 Respiratory Rate 20 Blood Pressure Pulse Oximetry 96 07/04/18 23:15 07/05/18 03:00 07/05/18 03:18 Temperature 97.7 F 97.9 F Pulse Rate 68 65 68 Respiratory Rate 24 22 Blood Pressure 160/71 H 161/79 H Pulse Oximetry 96 96 07/05/18 03:51 07/05/18 06:11 07/05/18 07:00 Temperature 98.3 F Pulse Rate 67 70 Respiratory Rate 18 22 22 Blood Pressure 159/70 H Pulse Oximetry 97 07/05/18 09:39 07/05/18 11:00 07/05/18 15:00 Temperature 98.0 F Pulse Rate 67 69 Respiratory Rate 24 22 Blood Pressure 143/66 H Pulse Oximetry 96 94 L 94 L Intake & Output 07/04/18 07/05/18 07/05/18 18:59 06:59 18:59 Intake Total 950 / 950 290 / 290 Output Total 340 / 340 460 / 460 Balance 610 / 610 -170 / -170 Weight 93 kg Intake: IV 350 / 350 Azithromycin Inj 500 MG In NS 250 / 250 Inj 250 ML @ 250 mls/hr IV.SIG Q24H [facility] Rx#:[id number] Rocephin Inj 1,000 MG In NS Inj 100 / 100 100 ML @ 200 mls/hr IV.SIG Q24H [facility] Rx#:[id number] Oral 600 / 600 290 / 290 Output: Urine 340 / 340 460 / 460 Other: # Incontinent Voids 1 Date of Last Bowel Movement 07/04/18 07/04/18 07/04/18 # Bowel Movements 1 <Larry Acevedo - Last Filed: 07/05/18 18:02> Assessment and Plan - Assessment (1) Acute kidney injury Code(s): N17.9 - Acute kidney failure, unspecified Status: Acute Plan: Acute kidney injury with creatinine of 2.60 on day of consult. SO possibly ATN from decreased cardiac output/ third spacing/ infection History of chronic kidney disease with mild proteinuria possibly from diabetic or hypertensive renal disease. Baseline creatinine not available but creatinine noted to be 1.20 April 2011 Renal ultrasound with no evidence of stone, masses or hydronephrosis Plan Monitor strict I+O Continue Lasix BID, Fluid restriction added. Metolazone 2.5 mg BID added, unable to lie flat Phoslo added for elevated PO4 Hyperkalemia resolved. Avoid nephrotoxins including IV contrast and aminoglycosides. Plan for pacemaker placement on Wednesday or Will monitor urinary output and BMP (2) Anemia Code(s): D64.9 - Anemia, unspecified Status: Acute Plan: Hemoglobin stable Most likely from chronic disease (3) Complete heart block by electrocardiogram Code(s): I44.2 - Atrioventricular block, complete Status: Acute Plan: Plan for pacemaker, Wednesday or Creatinine improving. cleared per Nephrology for pacemaker placement (4) Sepsis Code(s): A41.9 - Sepsis, unspecified organism Status: Acute Plan: ID consulted and cultures negative thus far <Zuleika Vasquez - Last Filed: 07/05/18 09:49> - Assessment (1) Acute kidney injury Code(s): N17.9 - Acute kidney failure, unspecified Status: Acute Plan: Patient seen and examined, agree with above. Continue Lasix, and metolazone. Creatinine is slightly better. (2) Anemia Code(s): D64.9 - Anemia, unspecified Status: Acute (3) Complete heart block by electrocardiogram Code(s): I44.2 - Atrioventricular block, complete Status: Acute (4) Sepsis Code(s): A41.9 - Sepsis, unspecified organism Status: Acute <Larry Acevedo - Last Filed: 07/05/18 18:02>
--- NOTE | 2018-07-05 11:20 | P.PNID ---
Subjective Remarks: Patient is sitting up in a bedside chair. Still gets coughing spells. No sputum production. Feels the cough is less. No fever. Receiving diuretics. Denies chills. Denies chest pain. Blood cultures no growth. DANYELLE did not reveal any vegetation. White blood cell count decreased. Patient is reported to to have increased white blood cell count for some time. 72-year-old white male who has a history of aortic valve replacement in 2010. The patient presented to the [facility] in [place] and was felt to be in complete heart block. He was transferred to [facility] for further evaluation. The patient was noted to have fever with temperature of 102 degrees yesterday and white count was elevated at 21.9. The patient notes that he has had a head cold with coughing, which began 2 weeks ago. He notes that he was having pain behind the eyes and the cough was not improving. He took cough medications, but he continued with the cough. He has had no sputum production. He notes having shaking chills before he went to the [facility] for evaluation from the [facility]. Past Medical History: PAST MEDICAL HISTORY: Diabetes mellitus, hypertension, hyperlipidemia, coronary artery disease, chronic heart failure, chronic kidney disease stage III, history of aortic valve replacement in 2010. Bilateral hip replacement Oct and March 2018. Allergies/Adverse Reactions: Allergies Oexraux-Ucg-Spk Reductase Inhibitor Allergy (Severe, Verified 04/12/18 05:50) muscle weakness atorvastatin Allergy (Mild, Verified 04/12/18 05:50) Objective Vital Signs 07/04/18 11:52 07/04/18 15:00 07/04/18 16:00 Temperature 97.6 F Pulse Rate 60 Respiratory Rate 22 22 22 Blood Pressure 136/67 Pulse Oximetry 96 07/04/18 17:03 07/04/18 19:00 07/04/18 19:15 Temperature Pulse Rate 58 L 59 L Respiratory Rate 18 Blood Pressure Pulse Oximetry 95 07/04/18 20:09 07/04/18 22:30 07/04/18 22:41 Temperature 97.9 F Pulse Rate 65 67 Respiratory Rate 22 20 Blood Pressure 157/86 H Pulse Oximetry 95 96 07/04/18 23:00 07/04/18 23:15 07/05/18 03:00 Temperature 97.7 F Pulse Rate 73 68 65 Respiratory Rate 24 Blood Pressure 160/71 H Pulse Oximetry 96 07/05/18 03:18 07/05/18 03:51 07/05/18 06:11 Temperature 97.9 F Pulse Rate 68 67 Respiratory Rate 22 18 22 Blood Pressure 161/79 H Pulse Oximetry 96 07/05/18 09:39 Temperature Pulse Rate 67 Respiratory Rate 24 Blood Pressure Pulse Oximetry 96 Intake & Output 07/04/18 07/05/18 07/05/18 18:59 06:59 18:59 Intake Total 950 / 950 290 / 290 Output Total 340 / 340 460 / 460 Balance 610 / 610 -170 / -170 Weight 93 kg Intake: IV 350 / 350 Azithromycin Inj 500 MG In NS 250 / 250 Inj 250 ML @ 250 mls/hr IV.SIG Q24H [facility]IS Rx#:[id number] Rocephin Inj 1,000 MG In NS Inj 100 / 100 100 ML @ 200 mls/hr IV.SIG Q24H GL[facility]IS Rx#:[id number] Oral 600 / 600 290 / 290 Output: Urine 340 / 340 460 / 460 Other: # Incontinent Voids 1 Date of Last Bowel Movement 07/04/18 07/04/18 # Bowel Movements 1 06/30/18 09:55 Blood - Peripheral Aerobic Blood Culture - Final No growth in 5 days 06/30/18 09:55 Blood - Peripheral Anaerobic Blood Culture - Final No growth in 5 days 06/30/18 09:50 Blood - Peripheral Aerobic Blood Culture - Final No growth in 5 days 06/30/18 09:50 Blood - Peripheral Anaerobic Blood Culture - Final No growth in 5 days 07/03/18 10:45 Urine - Clean Catch Urine Streptococcus pneumoniae Antigen ( M - Final Presumptive negative for streptococcus pneumoniae antigen, suggesting no current or recent infection. Infection due to Streptococcus pneumoniae cannot be ruled out since the antigen present in the sample may be below the detection limit of the test. 07/03/18 10:45 Urine - Clean Catch Urine Legionella Antigen - Final Presumptive negative for Legionella pneumophila serogroup 1 antigen in urine, suggesting no recent or recurrent infection. Infection due to Legionella cannot be ruled out since other serogroups and species may cause disease, antigen may not be present in urine in early infection, and the level of antigen present in the urine may be below the detection limit of the test. Lab - Hematology Results 07/04/18 07/05/18 04:06 03:28 WBC 18.2 H 14.7 H RBC 3.40 L 3.33 L Hgb 9.9 L 9.6 L Hct 30.4 L 29.9 L MCV 89.6 89.6 MCH 29.1 28.8 MCHC 32.4 32.2 RDW 14.9 14.7 Plt Count 372 393 MPV 9.9 10.3 Neut % (Auto) 54.5 Lymph % (Auto) 33.6 [place] % (Auto) 9.8 H Eos % (Auto) 1.4 Baso % (Auto) 0.7 Neut # (Auto) 8.0 H Lymph # (Auto) 4.9 H [place] # (Auto) 1.4 H Eos # (Auto) 0.2 Baso # (Auto) 0.1 WBC Differential . Differential Comment Auto diff final Lab - Chemistry Results 07/02/18 07/03/18 07/03/18 03:43 11:31 13:40 Sodium 131 L Potassium 4.9 Chloride 97 L Carbon Dioxide 18.8 L Anion Gap 15 BUN 90 H Creatinine 2.93 H Estimated GFR 21 L POC Glucose 213 H Random Glucose 177 H Calcium 8.6 Phosphorus Magnesium Total Bilirubin 0.5 AST 21 ALT 19 Alkaline Phosphatase 77 Total Protein 7.2 Albumin 2.7 L Albumin (PEP) 3.10 L Albumin/Globulin Ratio 0.93 L Kcqfo-5-Fucrdxmnn 0.36 H Ykegf-8-Lnnzeawbr 0.94 Beta Globulins 0.79 Gamma Globulins 1.42 H PEP Pathologist Comment Procalcitonin 07/03/18 07/03/18 07/04/18 16:09 20:42 04:06 Sodium 129 L Potassium 5.2 H Chloride 97 L Carbon Dioxide 17.6 L Anion Gap 14 BUN 98 H Creatinine 2.76 H Estimated GFR 23 L POC Glucose 148 H 190 H Random Glucose 162 H Calcium 8.8 Phosphorus Magnesium 2.7 H Total Bilirubin 0.5 AST 25 ALT 19 Alkaline Phosphatase 75 Total Protein 7.4 Albumin 2.8 L Albumin (PEP) Albumin/Globulin Ratio Wfmta-2-Aoicoeclj Hvqwk-9-Ntfmdhnyr Beta Globulins Gamma Globulins PEP Pathologist Comment Procalcitonin 07/04/18 07/04/18 07/04/18 04:06 08:29 12:07 Sodium Potassium Chloride Carbon Dioxide Anion Gap BUN Creatinine Estimated GFR POC Glucose 181 H 223 H Random Glucose Calcium Phosphorus Magnesium Total Bilirubin AST ALT Alkaline Phosphatase Total Protein Albumin Albumin (PEP) Albumin/Globulin Ratio Wxxpq-3-Emkponjcv Oxagp-7-Splfbqbdm Beta Globulins Gamma Globulins PEP Pathologist Comment Procalcitonin 1.05 H 07/04/18 07/04/18 07/05/18 17:10 20:49 03:28 Sodium 132 L Potassium 4.5 Chloride 98 Carbon Dioxide 18.2 L Anion Gap 16 H BUN 97 H Creatinine 2.46 H Estimated GFR 26 L POC Glucose 100 128 H Random Glucose 135 H Calcium 8.5 Phosphorus 6.5 H D Magnesium 2.9 H Total Bilirubin AST ALT Alkaline Phosphatase Total Protein Albumin Albumin (PEP) Albumin/Globulin Ratio Hhajj-8-Harbcloox Zrmjn-5-Ilyurtkox Beta Globulins Gamma Globulins PEP Pathologist Comment Procalcitonin 07/05/18 08:44 Sodium Potassium Chloride Carbon Dioxide Anion Gap BUN Creatinine Estimated GFR POC Glucose 154 H Random Glucose Calcium Phosphorus Magnesium Total Bilirubin AST ALT Alkaline Phosphatase Total Protein Albumin Albumin (PEP) Albumin/Globulin Ratio Sffsx-6-Uwdgobkxa Wregb-2-Vjfcphmdg Beta Globulins Gamma Globulins PEP Pathologist Comment Procalcitonin Imaging: ITS Impressions Abdomen/Bladder Ultrasound 06/30/18 00:00 CONCLUSION: No evidence of hydronephrosis. Chest CT 06/30/18 00:00 CONCLUSION: 1. Findings probably on the basis of mild failure with patchy consolidation of both lungs and mild thickening of the interlobular septa as well as small right and tiny left pleural effusions. 2. Right lower lobe consolidation likely compressive/dependent atelectasis. 3. Previous median sternotomy and aortic valve replacement. Nonunion of the manubrial defect. 4. Coronary artery calcification. 5. A few scattered nonspecific upper limits of normal size mediastinal lymph nodes. Venous Doppler Study 06/30/18 00:00 CONCLUSION: 1. The study is negative for bilateral lower extremity deep venous thrombosis. Chest X-Ray 07/05/18 06:00 CONCLUSION: No significant change Physical Exam: PHYSICAL EXAMINATION: GENERAL: Awake and alert and oriented. HEENT: Head is atraumatic. Extraocular movements grossly intact. Pupils reactive to light. No icterus. No conjunctival erythema. Throat, oropharynx: Moist mucosa. No visible lesions. No thrush. NECK: Supple without adenopathy. LUNGS: Basilar rales. HEART: Normal S1 and S2. No audible murmur. ABDOMEN: Bowel sounds present. Soft, no tenderness appreciated. EXTREMITIES: No clubbing, cyanosis or 2+ edema. SKIN: No rash. NEUROLOGIC: Non focal. PSYCHIATRIC: Calm and cooperative. Assessment and Plan - Plan IMPRESSION: Fever and leukocytosis. Questionable etiology. Temp improved. WBC lower. Nonproductive cough. Interstitial infiltrates on chest x-ray. Possible atypical pneumonia versus viral etiology vs CHF. Complete heart block. Aortic valve replacement status. RECOMMENDATIONS: 1. Continue ceftriaxone intravenous. Also on Azithromycin by [facility]. 2. Follow mycoplasma serology. 3. Consider Hematology consult for persistent leukocytosis. 4. Monitor white blood cell count. 5. Monitor temperature. I think pacemaker can be inserted if he remains afebrile.
[2018-07-05] MEDS: Calcium Acetate 667 MG Capsule PO SCH ×2 (13:20→17:36)
[2018-07-05] MEDS: Benzonatate 100 MG Capsule PO PRN (17:35)
--- NOTE | 2018-07-05 18:27 | ECG ---
Date Performed: 07/04/2018 Time Performed: 09:53:20 PTAGE: 72 years EKG: Probable accelerated junctional rhythm Possible inferior infarct - age undetermined AV disa ssociation with accelerated junctional rhythm. When compared to previous tracing, the patient appears to be in AV disassociation. Clinical correlation is recommended Abnormal ECG PREVIOUS TRACING : 07/03/2018 06.53 DOCTOR: Quita Kohli Interpretating Date/Time 07/05/2018 18:26:17
[2018-07-05] MEDS: Morphine Sulfate Inj 2 MG/ML Vial IV.PUSH PRN (22:55)
[2018-07-06] MEDS: Benzonatate 100 MG Capsule PO PRN (00:28)
[2018-07-06] MEDS: Morphine Sulfate Inj 2 MG/ML Vial IV.PUSH PRN (01:27)
[2018-07-06 04:23] LABS: Baso # (Auto) 0.2 th/mm3 (0.0-0.2); Baso % (Auto) 1.3 % (0.0-2.0); Eos # (Auto) 0.2 th/mm3 (0.0-0.4); Eos % (Auto) 1.2 % (0.0-4.0); Hematocrit 29.1 % (39.0-51.0); Hemoglobin 9.5 gm/dL (13.0-17.0); Lymph # (Auto) 4.8 th/mm3 (1.0-4.8); Lymph % (Auto) 31.8 % (9.0-44.0); Mean Corpuscular HGB Conc 32.6 % (32.0-36.0); Mean Corpuscular Hemoglobin 29.4 pg (27.0-34.0); Mean Corpuscular Volume 90.2 fL (80.0-100.0); Mean Platelet Volume 10.1 fL (7.0-11.0); Mono # (Auto) 1.7 th/mm3 (0.0-0.9); Neut # (Auto) 8.3 th/mm3 (1.8-7.7); Neut % (Auto) 54.7 % (16.0-70.0); Platelet Count 370 th/mm3 (150-450); Red Blood Count 3.23 mil/mm3 (4.50-5.90); Red Cell Distribution Width 14.9 % (11.6-17.2); White Blood Count 15.2 th/mm3 (4.0-11.0)
[2018-07-06 04:34] LABS: INR 1.1 Ratio; Prothrombin Time 11.2 sec (9.8-11.6)
[2018-07-06 04:55] LABS: Albumin 2.7 g/dL (3.4-5.0); Calcium 9.1 mg/dL (8.5-10.1); Carbon Dioxide 18.5 meq/L (21.0-32.0); Potassium 4.2 meq/L (3.5-5.1)
[2018-07-06 04:57] LABS: Phosphorus 6.5 mg/dL (2.5-4.9)
--- NOTE | 2018-07-06 07:40 | P.PNCA ---
Subjective Interval history: Still short of breath and orthopnea, but a little bit better. -350 fluid balance overnight. No chest pain, lightheadedness. Physical Exam Vital signs: Vital Signs 07/05/18 09:39 07/05/18 11:00 07/05/18 15:00 Temperature 98.0 F 98.5 F Pulse Rate 67 69 61 Respiratory Rate 24 22 24 Blood Pressure 143/66 H 159/73 H Pulse Oximetry 96 94 L 96 07/05/18 16:00 07/05/18 18:24 07/05/18 19:00 Temperature 98.5 F Pulse Rate 71 66 Respiratory Rate 22 20 20 Blood Pressure 158/71 H Pulse Oximetry 94 L 07/05/18 22:20 07/05/18 22:21 07/05/18 23:00 Temperature 99.4 F Pulse Rate 73 72 Respiratory Rate 22 32 H Blood Pressure 146/70 H Pulse Oximetry 96 93 L 07/06/18 00:06 07/06/18 02:00 07/06/18 03:00 Temperature 98.5 F Pulse Rate 68 Respiratory Rate 28 H 24 28 H Blood Pressure 155/71 H Pulse Oximetry 95 07/06/18 03:31 07/06/18 04:00 07/06/18 07:00 Temperature 97.9 F Pulse Rate 58 L 68 Respiratory Rate 14 28 H 20 Blood Pressure 162/75 H Pulse Oximetry 97 07/06/18 07:15 Temperature Pulse Rate 71 Respiratory Rate Blood Pressure Pulse Oximetry Intake & Output 07/05/18 07/06/18 07/06/18 18:59 06:59 18:59 Intake Total 830 / 830 Output Total 730 / 730 450 / 450 Balance 100 / 100 -450 / -450 Weight 199 lb 8.293 oz Intake: IV 350 / 350 Azithromycin Inj 500 MG In NS 250 / 250 Inj 250 ML @ 250 mls/hr IV.SIG Q24H [facility] Rx#:[id number] Rocephin Inj 1,000 MG In NS Inj 100 / 100 100 ML @ 200 mls/hr IV.SIG Q24H [facility]IS Rx#:[id number] Oral 480 / 480 Output: Urine 730 / 730 450 / 450 Other: # Voids 3 Date of Last Bowel Movement 07/04/18 07/04/18 07/04/18 Narrative: GENERAL: Well-developed well-nourished. In no acute distress. NECK: No carotid bruits. No JVD. CARDIOVASCULAR: Regular rate and rhythm. No murmur appreciated. RESPIRATORY: No accessory muscle use. Clear to auscultation. Breath sounds equal bilaterally. MUSCULOSKELETAL: No clubbing or cyanosis. 1+ LE edema. NEUROLOGICAL: Awake and alert. Normal speech. Assessment and Plan - Plan Assessment: Patient admitted as transfer from [facility] with CHB and junctional escape rhythm, hemodynamically stable in the setting of ADHF, fever, leukocytosis, and CKD stage 3. There was concern for possible bacterial endocarditis in this setting, however transthoracic echocardiogram and transesophageal echocardiogram did not reveal any valvular vegetations. LV systolic function is normal. No adynamic with significant valvular disease. Given he is hemodynamically stable with junctional escape, will hold off on placement of dual-chamber permanent pacemaker pending ID recommendations as we follow blood culture results and further infectious workup. -CHB, with junctional escape rhythm -HFpEF -Anasarca with lower extremity edema and hypoalbuminemia -SIRS criteria (fever, leukocytosis, hypoxemia), cultures negative to date, cleared by ID for pacemaker -CKD stage 3, with SO -CAD, asymptomatic -Moderate aortic bioprosthesis stenosis on echo, normal EF -Hypertension Recommendations: -Leukocytosis with Blood Cx NGTD x 3 days. Please consider hematology consultation -Hold off on PPM placement pending improvement in dyspnea; tentatively scheduled for . -continue transcutaneous pacer pads for now -no AVN blocking agents -Nephrology following for SO on CKD -Continue home ASA 81mg daily -Continue diuresis, monitor I's and O -Hydralazine added, titrate dose will continue to follow with you. Discussed Condition With: Patient, Dr. Elmore, Dr. Santillan
[2018-07-06] MEDS: Azithromycin Inj 500 MG in Sodium Chlor 0.9% Inj 250 ML IV.SIG SCH (07:44)
[2018-07-06] MEDS: Insulin NovoLIN Regular Correctional Sugar Inj SQ SCH ×4 (07:49→20:12)
[2018-07-06] MEDS: Senna/Docusate Sodium 8.6/50 MG Tablet PO SCH ×2 (08:20→20:06)
[2018-07-06] MEDS: Calcium Acetate 667 MG Capsule PO SCH ×3 (08:21→17:13)
[2018-07-06] MEDS: Sodium Bicarbonate 650 MG Tablet PO SCH ×2 (08:21→20:06)
[2018-07-06] MEDS: Calcitriol 0.25 MCG Capsule PO SCH (08:21)
[2018-07-06] MEDS: Heparin - SQ 10,000 UNITS/ML Vial SQ SCH ×2 (08:22→20:05)
[2018-07-06] MEDS: Insulin Detemir Inj 1,000 UNIT/10 ML Vial SQ SCH ×2 (08:24→21:10)
--- NOTE | 2018-07-06 10:30 | P.PNNP ---
Subjective Interval history: Sitting up in chair, continues to have shortness of breath, unchanged. Creatinine is improving at 2.38 and urinary output has increased. <PedroZuleika - Last Filed: 07/06/18 10:24> Physical Exam Vital signs: Vital Signs 07/05/18 11:00 07/05/18 15:00 07/05/18 16:00 Temperature 98.0 F 98.5 F Pulse Rate 69 61 Respiratory Rate 22 24 22 Blood Pressure 143/66 H 159/73 H Pulse Oximetry 94 L 96 07/05/18 18:24 07/05/18 19:00 07/05/18 22:20 Temperature 98.5 F Pulse Rate 71 66 73 Respiratory Rate 20 20 22 Blood Pressure 158/71 H Pulse Oximetry 94 L 07/05/18 22:21 07/05/18 23:00 07/06/18 00:06 Temperature 99.4 F Pulse Rate 72 Respiratory Rate 32 H 28 H Blood Pressure 146/70 H Pulse Oximetry 96 93 L 07/06/18 02:00 07/06/18 03:00 07/06/18 03:31 Temperature 98.5 F Pulse Rate 68 58 L Respiratory Rate 24 28 H 14 Blood Pressure 155/71 H Pulse Oximetry 95 07/06/18 04:00 07/06/18 07:00 07/06/18 07:15 Temperature 97.9 F Pulse Rate 68 71 Respiratory Rate 28 H 20 Blood Pressure 162/75 H Pulse Oximetry 97 07/06/18 09:15 07/06/18 09:30 07/06/18 09:32 Temperature Pulse Rate 72 Respiratory Rate 20 Blood Pressure Pulse Oximetry 96 93 L Intake & Output 07/05/18 07/06/18 07/06/18 18:59 06:59 18:59 Intake Total 830 / 830 Output Total 730 / 730 450 / 450 Balance 100 / 100 -450 / -450 Weight 90.5 kg Intake: IV 350 / 350 Azithromycin Inj 500 MG In NS 250 / 250 Inj 250 ML @ 250 mls/hr IV.SIG Q24H [facility] Rx#:[id number] Rocephin Inj 1,000 MG In NS Inj 100 / 100 100 ML @ 200 mls/hr IV.SIG Q24H [facility]IS Rx#:[id number] Oral 480 / 480 Output: Urine 730 / 730 450 / 450 Other: # Voids 3 Date of Last Bowel Movement 07/04/18 07/04/18 07/04/18 Narrative: GENERAL: AOx3, sitting up in chair. SKIN: Warm and dry. HEAD: Atraumatic. Normocephalic. EYES: Pupils equal and round. No scleral icterus. No injection or drainage. ENT: No nasal bleeding or discharge. Mucous membranes pink and moist. NECK: Trachea midline. No JVD. CARDIOVASCULAR: Regular rate and rhythm. No murmurs appreciated. 2+ edema bilateral LE up to knees, improving. RESPIRATORY: No accessory muscle use. Clear to auscultation. Breath sounds equal bilaterally. NEUROLOGICAL: Awake and alert. No obvious cranial nerve deficits. Normal speech. PSYCHIATRIC: Appropriate mood and affect; insight and judgment normal. <Zuleika Vasquez - Last Filed: 07/06/18 10:24> Vital signs: Vital Signs 07/05/18 22:20 07/05/18 22:21 07/05/18 23:00 Temperature 99.4 F Pulse Rate 73 72 Respiratory Rate 22 32 H Blood Pressure 146/70 H Pulse Oximetry 96 93 L 07/06/18 00:06 07/06/18 02:00 07/06/18 03:00 Temperature 98.5 F Pulse Rate 68 Respiratory Rate 28 H 24 28 H Blood Pressure 155/71 H Pulse Oximetry 95 07/06/18 03:31 07/06/18 04:00 07/06/18 07:00 Temperature 97.9 F Pulse Rate 58 L 68 Respiratory Rate 14 28 H 20 Blood Pressure 162/75 H Pulse Oximetry 97 07/06/18 07:15 07/06/18 09:15 07/06/18 09:30 Temperature Pulse Rate 71 Respiratory Rate Blood Pressure Pulse Oximetry 96 93 L 07/06/18 09:32 07/06/18 10:18 07/06/18 11:00 Temperature 98.1 F Pulse Rate 72 81 72 Respiratory Rate 20 32 H Blood Pressure 154/68 H Pulse Oximetry 95 07/06/18 12:00 07/06/18 13:00 07/06/18 14:04 Temperature Pulse Rate 74 72 71 Respiratory Rate Blood Pressure Pulse Oximetry 07/06/18 14:50 07/06/18 15:00 07/06/18 16:00 Temperature 97.9 F Pulse Rate 72 70 70 Respiratory Rate 30 H Blood Pressure 138/65 Pulse Oximetry 93 L 92 L 07/06/18 16:01 07/06/18 17:00 07/06/18 18:01 Temperature Pulse Rate 70 68 68 Respiratory Rate 16 Blood Pressure Pulse Oximetry Intake & Output 07/06/18 07/06/18 07/07/18 06:59 18:59 06:59 Intake Total 830 / 830 Output Total 450 / 450 200 / 200 Balance -450 / -450 630 / 630 Weight 90.5 kg Intake: IV 350 / 350 Azithromycin Inj 500 MG In NS 250 / 250 Inj 250 ML @ 250 mls/hr IV.SIG Q24H [facility] Rx#:[id number] Rocephin Inj 1,000 MG In NS Inj 100 / 100 100 ML @ 200 mls/hr IV.SIG Q24H [facility]IS Rx#:[id number] Oral 480 / 480 Output: Urine 450 / 450 200 / 200 Other: # Voids 3 1 Date of Last Bowel Movement 07/04/18 07/06/18 # Bowel Movements 1 <Usha Acevedo Q - Last Filed: 07/06/18 20:09> Assessment and Plan - Assessment (1) Acute kidney injury Code(s): N17.9 - Acute kidney failure, unspecified Status: Acute Plan: Acute kidney injury with creatinine of 2.60 on day of consult. SO possibly ATN from decreased cardiac output/ third spacing/ infection History of chronic kidney disease with mild proteinuria possibly from diabetic or hypertensive renal disease. Baseline creatinine not available but creatinine noted to be 1.20 April 2011 Renal ultrasound with no evidence of stone, masses or hydronephrosis Plan Monitor strict I+O Continue Lasix BID, will increase metolazone. Continue PhosLo, calcitriol, and sodium bicarbonate Avoid nephrotoxins including IV contrast and aminoglycosides. Plan for pacemaker placement on Wednesday or Will monitor urinary output and BMP (2) Anemia Code(s): D64.9 - Anemia, unspecified Status: Acute Plan: Hemoglobin stable Most likely from chronic disease (3) Complete heart block by electrocardiogram Code(s): I44.2 - Atrioventricular block, complete Status: Acute Plan: Plan for pacemaker, Creatinine improving. cleared per Nephrology for pacemaker placement (4) Sepsis Code(s): A41.9 - Sepsis, unspecified organism Status: Acute Plan: ID consulted and cultures negative thus far <Zuleika Vasquez - Last Filed: 07/06/18 10:24> - Assessment (1) Acute kidney injury Code(s): N17.9 - Acute kidney failure, unspecified Status: Acute Plan: Patient seen and examined, agree with above. Increase Lasix, try to increase diuresis. Cardiology following , Creatinine is slightly better. (2) Anemia Code(s): D64.9 - Anemia, unspecified Status: Acute (3) Complete heart block by electrocardiogram Code(s): I44.2 - Atrioventricular block, complete Status: Acute (4) Sepsis Code(s): A41.9 - Sepsis, unspecified organism Status: Acute <Larry Acevedo - Last Filed: 07/06/18 20:09>
[2018-07-06] MEDS: metOLazone 5 MG Tablet PO SCH ×2 (11:53→17:20)
--- NOTE | 2018-07-06 12:15 | P.PNIM ---
Physical Exam Vital signs: Vital Signs 07/05/18 15:00 07/05/18 16:00 07/05/18 18:24 Temperature 98.5 F Pulse Rate 61 71 Respiratory Rate 24 22 20 Blood Pressure 159/73 H Pulse Oximetry 96 07/05/18 19:00 07/05/18 22:20 07/05/18 22:21 Temperature 98.5 F Pulse Rate 66 73 Respiratory Rate 20 22 Blood Pressure 158/71 H Pulse Oximetry 94 L 96 07/05/18 23:00 07/06/18 00:06 07/06/18 02:00 Temperature 99.4 F Pulse Rate 72 Respiratory Rate 32 H 28 H 24 Blood Pressure 146/70 H Pulse Oximetry 93 L 07/06/18 03:00 07/06/18 03:31 07/06/18 04:00 Temperature 98.5 F Pulse Rate 68 58 L Respiratory Rate 28 H 14 28 H Blood Pressure 155/71 H Pulse Oximetry 95 07/06/18 07:00 07/06/18 07:15 07/06/18 09:15 Temperature 97.9 F Pulse Rate 68 71 Respiratory Rate 20 Blood Pressure 162/75 H Pulse Oximetry 97 96 07/06/18 09:30 07/06/18 09:32 07/06/18 10:18 Temperature 98.1 F Pulse Rate 72 81 Respiratory Rate 20 32 H Blood Pressure 154/68 H Pulse Oximetry 93 L 95 07/06/18 11:00 Temperature Pulse Rate 72 Respiratory Rate Blood Pressure Pulse Oximetry Intake & Output 07/05/18 07/06/18 07/06/18 18:59 06:59 18:59 Intake Total 830 / 830 Output Total 730 / 730 450 / 450 Balance 100 / 100 -450 / -450 Weight 90.5 kg Intake: IV 350 / 350 Azithromycin Inj 500 MG In NS 250 / 250 Inj 250 ML @ 250 mls/hr IV.SIG Q24H [facility] Rx#:[id number] Rocephin Inj 1,000 MG In NS Inj 100 / 100 100 ML @ 200 mls/hr IV.SIG Q24H [facility]IS Rx#:[id number] Oral 480 / 480 Output: Urine 730 / 730 450 / 450 Other: # Voids 3 Date of Last Bowel Movement 07/04/18 07/04/18 07/06/18 Results - Labs CBC & Chem 7: 07/06/18 03:22 07/06/18 03:22 Laboratory Results - last 24 hr 07/01/18 07/05/18 07/05/18 13:40 13:14 17:09 WBC RBC Hgb Hct MCV MCH MCHC RDW Plt Count MPV Neut % (Auto) Lymph % (Auto) [place] % (Auto) Eos % (Auto) Baso % (Auto) Neut # (Auto) Lymph # (Auto) [place] # (Auto) Eos # (Auto) Baso # (Auto) WBC Differential Differential Comment PT INR Sodium Potassium Chloride Carbon Dioxide Anion Gap BUN Creatinine Estimated GFR POC Glucose 392 H 178 H Random Glucose Calcium Phosphorus Albumin M. pneumoniae Interp . Mycoplasma pneumon IgG Positive Mycoplasma pneumon IgM Negative 07/05/18 07/06/18 07/06/18 21:30 03:22 03:22 WBC 15.2 H RBC 3.23 L Hgb 9.5 L Hct 29.1 L MCV 90.2 MCH 29.4 MCHC 32.6 RDW 14.9 Plt Count 370 MPV 10.1 Neut % (Auto) 54.7 Lymph % (Auto) 31.8 [place] % (Auto) 11.0 H Eos % (Auto) 1.2 Baso % (Auto) 1.3 Neut # (Auto) 8.3 H Lymph # (Auto) 4.8 [place] # (Auto) 1.7 H Eos # (Auto) 0.2 Baso # (Auto) 0.2 WBC Differential . Differential Comment Auto diff final PT 11.2 INR 1.1 Sodium Potassium Chloride Carbon Dioxide Anion Gap BUN Creatinine Estimated GFR POC Glucose 164 H Random Glucose Calcium Phosphorus Albumin M. pneumoniae Interp Mycoplasma pneumon IgG Mycoplasma pneumon IgM 07/06/18 07/06/18 07/06/18 03:22 07:37 11:29 WBC RBC Hgb Hct MCV MCH MCHC RDW Plt Count MPV Neut % (Auto) Lymph % (Auto) [place] % (Auto) Eos % (Auto) Baso % (Auto) Neut # (Auto) Lymph # (Auto) [place] # (Auto) Eos # (Auto) Baso # (Auto) WBC Differential Differential Comment PT INR Sodium 132 L Potassium 4.2 Chloride 99 Carbon Dioxide 18.5 L Anion Gap 15 BUN 102 H Creatinine 2.38 H Estimated GFR 27 L POC Glucose 144 H 227 H Random Glucose 89 Calcium 9.1 Phosphorus 6.5 H Albumin 2.7 L M. pneumoniae Interp Mycoplasma pneumon IgG Mycoplasma pneumon IgM Microbiology 06/30/18 09:55 Blood - Peripheral Aerobic Blood Culture - Final No growth in 5 days 06/30/18 09:55 Blood - Peripheral Anaerobic Blood Culture - Final No growth in 5 days 06/30/18 09:50 Blood - Peripheral Aerobic Blood Culture - Final No growth in 5 days 06/30/18 09:50 Blood - Peripheral Anaerobic Blood Culture - Final No growth in 5 days
--- NOTE | 2018-07-06 12:48 | P.PNID ---
Subjective Remarks: Patient is sitting up in a bedside chair. Still not able to lay flat. Still gets coughing spells. No sputum production. Feels the cough is less. No fever. Receiving diuretics. Denies chills. Denies chest pain. Blood cultures no growth. 72-year-old white male who has a history of aortic valve replacement in 2010. The patient presented to the [facility] in [place] and was felt to be in complete heart block. He was transferred to [facility] for further evaluation. The patient was noted to have fever with temperature of 102 degrees yesterday and white count was elevated at 21.9. The patient notes that he has had a head cold with coughing, which began 2 weeks ago. He notes that he was having pain behind the eyes and the cough was not improving. He took cough medications, but he continued with the cough. He has had no sputum production. He notes having shaking chills before he went to the [facility] for evaluation from the [facility]. Past Medical History: PAST MEDICAL HISTORY: Diabetes mellitus, hypertension, hyperlipidemia, coronary artery disease, chronic heart failure, chronic kidney disease stage III, history of aortic valve replacement in 2010. Bilateral hip replacement Oct and March 2018. Allergies/Adverse Reactions: Allergies Kjrdjhp-Ayk-Ail Reductase Inhibitor Allergy (Severe, Verified 04/12/18 05:50) muscle weakness atorvastatin Allergy (Mild, Verified 04/12/18 05:50) Objective Vital Signs 07/05/18 15:00 07/05/18 16:00 07/05/18 18:24 Temperature 98.5 F Pulse Rate 61 71 Respiratory Rate 24 22 20 Blood Pressure 159/73 H Pulse Oximetry 96 07/05/18 19:00 07/05/18 22:20 07/05/18 22:21 Temperature 98.5 F Pulse Rate 66 73 Respiratory Rate 20 22 Blood Pressure 158/71 H Pulse Oximetry 94 L 96 07/05/18 23:00 07/06/18 00:06 07/06/18 02:00 Temperature 99.4 F Pulse Rate 72 Respiratory Rate 32 H 28 H 24 Blood Pressure 146/70 H Pulse Oximetry 93 L 07/06/18 03:00 07/06/18 03:31 07/06/18 04:00 Temperature 98.5 F Pulse Rate 68 58 L Respiratory Rate 28 H 14 28 H Blood Pressure 155/71 H Pulse Oximetry 95 07/06/18 07:00 07/06/18 07:15 07/06/18 09:15 Temperature 97.9 F Pulse Rate 68 71 Respiratory Rate 20 Blood Pressure 162/75 H Pulse Oximetry 97 96 07/06/18 09:30 07/06/18 09:32 07/06/18 10:18 Temperature 98.1 F Pulse Rate 72 81 Respiratory Rate 20 32 H Blood Pressure 154/68 H Pulse Oximetry 93 L 95 07/06/18 11:00 Temperature Pulse Rate 72 Respiratory Rate Blood Pressure Pulse Oximetry Intake & Output 07/05/18 07/06/18 07/06/18 18:59 06:59 18:59 Intake Total 830 / 830 Output Total 730 / 730 450 / 450 Balance 100 / 100 -450 / -450 Weight 90.5 kg Intake: IV 350 / 350 Azithromycin Inj 500 MG In NS 250 / 250 Inj 250 ML @ 250 mls/hr IV.SIG Q24H GL[facility]IS Rx#:[id number] Rocephin Inj 1,000 MG In NS Inj 100 / 100 100 ML @ 200 mls/hr IV.SIG Q24H GLENIS Rx#:[id number] Oral 480 / 480 Output: Urine 730 / 730 450 / 450 Other: # Voids 3 Date of Last Bowel Movement 07/04/18 07/04/18 07/06/18 06/30/18 09:55 Blood - Peripheral Aerobic Blood Culture - Final No growth in 5 days 06/30/18 09:55 Blood - Peripheral Anaerobic Blood Culture - Final No growth in 5 days 06/30/18 09:50 Blood - Peripheral Aerobic Blood Culture - Final No growth in 5 days 06/30/18 09:50 Blood - Peripheral Anaerobic Blood Culture - Final No growth in 5 days 07/03/18 10:45 Urine - Clean Catch Urine Streptococcus pneumoniae Antigen ( M - Final Presumptive negative for streptococcus pneumoniae antigen, suggesting no current or recent infection. Infection due to Streptococcus pneumoniae cannot be ruled out since the antigen present in the sample may be below the detection limit of the test. 07/03/18 10:45 Urine - Clean Catch Urine Legionella Antigen - Final Presumptive negative for Legionella pneumophila serogroup 1 antigen in urine, suggesting no recent or recurrent infection. Infection due to Legionella cannot be ruled out since other serogroups and species may cause disease, antigen may not be present in urine in early infection, and the level of antigen present in the urine may be below the detection limit of the test. Lab - Hematology Results 07/05/18 07/06/18 03:28 03:22 WBC 14.7 H 15.2 H RBC 3.33 L 3.23 L Hgb 9.6 L 9.5 L Hct 29.9 L 29.1 L MCV 89.6 90.2 MCH 28.8 29.4 MCHC 32.2 32.6 RDW 14.7 14.9 Plt Count 393 370 MPV 10.3 10.1 Neut % (Auto) 54.5 54.7 Lymph % (Auto) 33.6 31.8 [place] % (Auto) 9.8 H 11.0 H Eos % (Auto) 1.4 1.2 Baso % (Auto) 0.7 1.3 Neut # (Auto) 8.0 H 8.3 H Lymph # (Auto) 4.9 H 4.8 [place] # (Auto) 1.4 H 1.7 H Eos # (Auto) 0.2 0.2 Baso # (Auto) 0.1 0.2 WBC Differential . . Differential Comment Auto diff final Auto diff final Lab - Chemistry Results 07/02/18 07/04/18 07/04/18 03:43 04:06 17:10 Sodium Potassium Chloride Carbon Dioxide Anion Gap BUN Creatinine Estimated GFR POC Glucose 100 Random Glucose Calcium Phosphorus Magnesium Albumin PEP Pathologist Comment Procalcitonin 1.05 H 07/04/18 07/05/18 07/05/18 20:49 03:28 08:44 Sodium 132 L Potassium 4.5 Chloride 98 Carbon Dioxide 18.2 L Anion Gap 16 H BUN 97 H Creatinine 2.46 H Estimated GFR 26 L POC Glucose 128 H 154 H Random Glucose 135 H Calcium 8.5 Phosphorus 6.5 H D Magnesium 2.9 H Albumin PEP Pathologist Comment Procalcitonin 07/05/18 07/05/18 07/05/18 13:14 17:09 21:30 Sodium Potassium Chloride Carbon Dioxide Anion Gap BUN Creatinine Estimated GFR POC Glucose 392 H 178 H 164 H Random Glucose Calcium Phosphorus Magnesium Albumin PEP Pathologist Comment Procalcitonin 07/06/18 07/06/18 07/06/18 03:22 07:37 11:29 Sodium 132 L Potassium 4.2 Chloride 99 Carbon Dioxide 18.5 L Anion Gap 15 BUN 102 H Creatinine 2.38 H Estimated GFR 27 L POC Glucose 144 H 227 H Random Glucose 89 Calcium 9.1 Phosphorus 6.5 H Magnesium Albumin 2.7 L PEP Pathologist Comment Procalcitonin Imaging: ITS Impressions Abdomen/Bladder Ultrasound 06/30/18 00:00 CONCLUSION: No evidence of hydronephrosis. Chest CT 06/30/18 00:00 CONCLUSION: 1. Findings probably on the basis of mild failure with patchy consolidation of both lungs and mild thickening of the interlobular septa as well as small right and tiny left pleural effusions. 2. Right lower lobe consolidation likely compressive/dependent atelectasis. 3. Previous median sternotomy and aortic valve replacement. Nonunion of the manubrial defect. 4. Coronary artery calcification. 5. A few scattered nonspecific upper limits of normal size mediastinal lymph nodes. Venous Doppler Study 06/30/18 00:00 CONCLUSION: 1. The study is negative for bilateral lower extremity deep venous thrombosis. Chest X-Ray 07/05/18 06:00 CONCLUSION: No significant change Physical Exam: PHYSICAL EXAMINATION: GENERAL: Awake and alert and oriented. HEENT: Head is atraumatic. Extraocular movements grossly intact. Pupils reactive to light. No icterus. No conjunctival erythema. Throat, oropharynx: Moist mucosa. No visible lesions. No thrush. NECK: Supple without adenopathy. LUNGS: Basilar rales. HEART: Normal S1 and S2. No audible murmur. ABDOMEN: Bowel sounds present. Soft, no tenderness appreciated. EXTREMITIES: No clubbing, cyanosis or 2+ edema. SKIN: No rash. NEUROLOGIC: Non focal. PSYCHIATRIC: Calm and cooperative. Assessment and Plan - Plan IMPRESSION: Fever and leukocytosis. Questionable etiology. Temp improved. WBC lower. Nonproductive cough. Interstitial infiltrates on chest x-ray. Possible atypical pneumonia versus viral etiology vs CHF. Complete heart block. Aortic valve replacement status. Mycoplasma serology positive. This could be from past infection. RECOMMENDATIONS: 1. Continue ceftriaxone intravenous. Also on Azithromycin by [facility]. 2. Consider Hematology consult for persistent leukocytosis. 3. Monitor white blood cell count. 4. Monitor temperature. I think pacemaker can be inserted if he remains afebrile.
[2018-07-07 05:52] LABS: INR 1.1 Ratio; Prothrombin Time 11.2 sec (9.8-11.6)
--- NOTE | 2018-07-07 08:08 | P.PNCA ---
Subjective Interval history: Patient reports his breathing is much better today and nearly back to normal. No more orthopnea and was able to sleep lying flat. He reports good urine output overnight, however it does not appear I's and O's were documented. No chest pain, lightheadedness, fever. Physical Exam Vital signs: Vital Signs 07/06/18 09:15 07/06/18 09:30 07/06/18 09:32 Temperature Pulse Rate 72 Respiratory Rate 20 Blood Pressure Pulse Oximetry 96 93 L 07/06/18 10:18 07/06/18 11:00 07/06/18 12:00 Temperature 98.1 F Pulse Rate 81 72 74 Respiratory Rate 32 H Blood Pressure 154/68 H Pulse Oximetry 95 07/06/18 13:00 07/06/18 14:04 07/06/18 14:50 Temperature 97.9 F Pulse Rate 72 71 72 Respiratory Rate 30 H Blood Pressure 138/65 Pulse Oximetry 93 L 07/06/18 15:00 07/06/18 16:00 07/06/18 16:01 Temperature Pulse Rate 70 70 70 Respiratory Rate 16 Blood Pressure Pulse Oximetry 92 L 07/06/18 17:00 07/06/18 18:01 07/06/18 19:00 Temperature 98.2 F Pulse Rate 68 68 69 Respiratory Rate 28 H Blood Pressure 151/68 H Pulse Oximetry 92 L 07/06/18 20:00 07/06/18 20:54 07/06/18 21:00 Temperature Pulse Rate 66 64 68 Respiratory Rate 16 Blood Pressure Pulse Oximetry 96 07/06/18 22:00 07/06/18 23:00 07/07/18 00:00 Temperature 97.9 F Pulse Rate 79 71 71 Respiratory Rate 30 H Blood Pressure 143/63 H Pulse Oximetry 91 L 07/07/18 01:00 07/07/18 02:00 07/07/18 03:00 Temperature 97.9 F Pulse Rate 60 58 L 69 Respiratory Rate 28 H Blood Pressure 167/72 H Pulse Oximetry 93 L 07/07/18 03:22 07/07/18 04:00 07/07/18 05:00 Temperature Pulse Rate 69 59 L 56 L Respiratory Rate 18 Blood Pressure Pulse Oximetry 07/07/18 06:00 07/07/18 07:32 Temperature 98.0 F Pulse Rate 56 L 67 Respiratory Rate 26 H Blood Pressure 159/76 H Pulse Oximetry 94 L Intake & Output 07/06/18 07/07/18 07/07/18 18:59 06:59 18:59 Intake Total 830 / 830 480 / 480 Output Total 200 / 200 0 / 0 Balance 630 / 630 480 / 480 Weight 197 lb 1.492 oz Intake: IV 350 / 350 Azithromycin Inj 500 MG In NS 250 / 250 Inj 250 ML @ 250 mls/hr IV.SIG Q24H [facility] Rx#:[id number] Rocephin Inj 1,000 MG In NS Inj 100 / 100 100 ML @ 200 mls/hr IV.SIG Q24H [facility]IS Rx#:[id number] Oral 480 / 480 480 / 480 Output: Urine 200 / 200 Stool 0 / 0 Other: # Voids 1 Date of Last Bowel Movement 07/06/18 07/06/18 07/07/18 # Bowel Movements 1 Narrative: GENERAL: Well-developed well-nourished. In no acute distress. NECK: No carotid bruits. No JVD. CARDIOVASCULAR: Regular rate and rhythm. No murmur appreciated. RESPIRATORY: No accessory muscle use. Clear to auscultation. Breath sounds equal bilaterally. MUSCULOSKELETAL: No clubbing or cyanosis. 2+ lower extrema edema. NEUROLOGICAL: Awake and alert. Normal speech. Assessment and Plan - Plan Assessment: Patient admitted as transfer from [facility] with CHB and junctional escape rhythm, hemodynamically stable in the setting of ADHF, fever, leukocytosis, and CKD stage 3. There was concern for possible bacterial endocarditis in this setting, however transthoracic echocardiogram and transesophageal echocardiogram did not reveal any valvular vegetations. LV systolic function is normal. No adynamic with significant valvular disease. Given he is hemodynamically stable with junctional escape, will hold off on placement of dual-chamber permanent pacemaker pending ID recommendations as we follow blood culture results and further infectious workup. -CHB, with junctional escape rhythm -HFpEF -Anasarca with lower extremity edema and hypoalbuminemia -SIRS criteria (fever, leukocytosis, hypoxemia), cultures negative to date, cleared by ID for pacemaker -CKD stage 3, with SO, improved -CAD, asymptomatic -Moderate aortic bioprosthesis stenosis on echo, normal EF Recommendations: -Leukocytosis with Blood Cx NGTD. Please consider hematology consultation -N.p.o. for PPM placement today. -continue transcutaneous pacer pads for now -no AVN blocking agents -Nephrology following for SO on CKD -Continue home ASA 81mg daily -Continue diuresis, monitor I's and O will continue to follow with you. Discussed Condition With: Patient, hospitalist, Dr. Elmore, Dr. Santillan - Attending Attestation PPM today
[2018-07-07] MEDS ORDERED: Chlorhexidine Gluconate 2% 1 Pack (2 Cloths) TOPICAL SCH (08:15)
[2018-07-07] MEDS ORDERED: Mupirocin 2% Nasal Oint Topical Syringe EACH NARE SCH (08:15)
[2018-07-07] MEDS: Azithromycin Inj 500 MG in Sodium Chlor 0.9% Inj 250 ML IV.SIG SCH (08:28)
[2018-07-07] MEDS: Heparin - SQ 10,000 UNITS/ML Vial SQ SCH ×2 (08:34→20:26)
[2018-07-07] MEDS: Insulin NovoLIN Regular Correctional Sugar Inj SQ SCH ×4 (08:34→23:39)
[2018-07-07] MEDS: Insulin Detemir Inj 1,000 UNIT/10 ML Vial SQ SCH ×2 (08:35→23:27)
[2018-07-07] MEDS: Calcium Acetate 667 MG Capsule PO SCH ×3 (08:35→18:58)
[2018-07-07] MEDS: Senna/Docusate Sodium 8.6/50 MG Tablet PO SCH ×2 (08:35→23:40)
[2018-07-07] MEDS: Calcitriol 0.25 MCG Capsule PO SCH (08:36)
[2018-07-07] MEDS: Sodium Bicarbonate 650 MG Tablet PO SCH ×2 (08:36→20:25)
--- NOTE | 2018-07-07 08:58 | P.PNIM ---
Subjective Interval history: able to lye flat today. in chair. overall feeling better. Physical Exam Vital signs: Vital Signs 07/06/18 09:15 07/06/18 09:30 07/06/18 09:32 Temperature Pulse Rate 72 Respiratory Rate 20 Blood Pressure Pulse Oximetry 96 93 L 07/06/18 10:18 07/06/18 11:00 07/06/18 12:00 Temperature 98.1 F Pulse Rate 81 72 74 Respiratory Rate 32 H Blood Pressure 154/68 H Pulse Oximetry 95 07/06/18 13:00 07/06/18 14:04 07/06/18 14:50 Temperature 97.9 F Pulse Rate 72 71 72 Respiratory Rate 30 H Blood Pressure 138/65 Pulse Oximetry 93 L 07/06/18 15:00 07/06/18 16:00 07/06/18 16:01 Temperature Pulse Rate 70 70 70 Respiratory Rate 16 Blood Pressure Pulse Oximetry 92 L 07/06/18 17:00 07/06/18 18:01 07/06/18 19:00 Temperature 98.2 F Pulse Rate 68 68 69 Respiratory Rate 28 H Blood Pressure 151/68 H Pulse Oximetry 92 L 07/06/18 20:00 07/06/18 20:54 07/06/18 21:00 Temperature Pulse Rate 66 64 68 Respiratory Rate 16 Blood Pressure Pulse Oximetry 96 07/06/18 22:00 07/06/18 23:00 07/07/18 00:00 Temperature 97.9 F Pulse Rate 79 71 71 Respiratory Rate 30 H Blood Pressure 143/63 H Pulse Oximetry 91 L 07/07/18 01:00 07/07/18 02:00 07/07/18 03:00 Temperature 97.9 F Pulse Rate 60 58 L 69 Respiratory Rate 28 H Blood Pressure 167/72 H Pulse Oximetry 93 L 07/07/18 03:22 07/07/18 04:00 07/07/18 05:00 Temperature Pulse Rate 69 59 L 56 L Respiratory Rate 18 Blood Pressure Pulse Oximetry 07/07/18 06:00 07/07/18 07:32 07/07/18 08:49 Temperature 98.0 F Pulse Rate 56 L 67 65 Respiratory Rate 26 H 18 Blood Pressure 159/76 H Pulse Oximetry 94 L 95 Intake & Output 07/06/18 07/07/18 07/07/18 18:59 06:59 18:59 Intake Total 830 / 830 480 / 480 Output Total 200 / 200 0 / 0 Balance 630 / 630 480 / 480 Weight 89.4 kg Intake: IV 350 / 350 Azithromycin Inj 500 MG In NS 250 / 250 Inj 250 ML @ 250 mls/hr IV.SIG Q24H [facility] Rx#:[id number] Rocephin Inj 1,000 MG In NS Inj 100 / 100 100 ML @ 200 mls/hr IV.SIG Q24H [facility]IS Rx#:[id number] Oral 480 / 480 480 / 480 Output: Urine 200 / 200 Stool 0 / 0 Other: # Voids 1 Date of Last Bowel Movement 07/06/18 07/06/18 07/07/18 # Bowel Movements 1 heart reg lung minimal basilar crackles abd s/nte ext trace/1plus edema jvd noted. Results - Labs CBC & Chem 7: 07/06/18 03:22 07/06/18 03:22 Laboratory Results - last 24 hr 07/06/18 07/06/18 07/06/18 11:29 16:39 20:04 PT INR POC Glucose 227 H 207 H 203 H 07/07/18 07/07/18 04:38 07:46 PT 11.2 INR 1.1 POC Glucose 147 H Assessment and Plan - Assessment (1) CHB (complete heart block) Code(s): I44.2 - Atrioventricular block, complete Status: Acute Plan: 1. CHB. junctional escape 2. CHF. preserved LVF. decompensated 3. SO 4. FEVER/Leukocytosis. pulmonary infiltrates. 5. Diabetes 6. HTN pt going for pm placement today iv diuresis increased. monitor bmp. cont abx rocephin/azithro per ID possible pna. cont current bp medication cont levemir/ssi novolog PT daily. (2) CHF (congestive heart failure) Code(s): I50.9 - Heart failure, unspecified Status: Acute (3) Fever Code(s): R50.9 - Fever, unspecified Status: Acute (4) Acute kidney injury Code(s): N17.9 - Acute kidney failure, unspecified Status: Acute
[2018-07-07] MEDS ORDERED: Vancomycin Inj 1,000 MG in Sodium Chlor 0.9% Inj 250 ML IV.SIG SCH (09:00)
[2018-07-07] MEDS: metOLazone 5 MG Tablet PO SCH ×2 (09:10→19:00)
--- NOTE | 2018-07-07 09:47 | P.PNNP ---
Subjective Interval history: Sitting up in chair. Shortness of breath is improving. Plan for pacemaker placement today. <Zuleika Vasquez - Last Filed: 07/07/18 09:40> Physical Exam Vital signs: Vital Signs 07/06/18 10:18 07/06/18 11:00 07/06/18 12:00 Temperature 98.1 F Pulse Rate 81 72 74 Respiratory Rate 32 H Blood Pressure 154/68 H Pulse Oximetry 95 07/06/18 13:00 07/06/18 14:04 07/06/18 14:50 Temperature 97.9 F Pulse Rate 72 71 72 Respiratory Rate 30 H Blood Pressure 138/65 Pulse Oximetry 93 L 07/06/18 15:00 07/06/18 16:00 07/06/18 16:01 Temperature Pulse Rate 70 70 70 Respiratory Rate 16 Blood Pressure Pulse Oximetry 92 L 07/06/18 17:00 07/06/18 18:01 07/06/18 19:00 Temperature 98.2 F Pulse Rate 68 68 69 Respiratory Rate 28 H Blood Pressure 151/68 H Pulse Oximetry 92 L 07/06/18 20:00 07/06/18 20:54 07/06/18 21:00 Temperature Pulse Rate 66 64 68 Respiratory Rate 16 Blood Pressure Pulse Oximetry 96 07/06/18 22:00 07/06/18 23:00 07/07/18 00:00 Temperature 97.9 F Pulse Rate 79 71 71 Respiratory Rate 30 H Blood Pressure 143/63 H Pulse Oximetry 91 L 07/07/18 01:00 07/07/18 02:00 07/07/18 03:00 Temperature 97.9 F Pulse Rate 60 58 L 69 Respiratory Rate 28 H Blood Pressure 167/72 H Pulse Oximetry 93 L 07/07/18 03:22 07/07/18 04:00 07/07/18 05:00 Temperature Pulse Rate 69 59 L 56 L Respiratory Rate 18 Blood Pressure Pulse Oximetry 07/07/18 06:00 07/07/18 07:32 07/07/18 08:49 Temperature 98.0 F Pulse Rate 56 L 67 65 Respiratory Rate 26 H 18 Blood Pressure 159/76 H Pulse Oximetry 94 L 95 Intake & Output 07/06/18 07/07/18 07/07/18 18:59 06:59 18:59 Intake Total 830 / 830 480 / 480 Output Total 200 / 200 0 / 0 Balance 630 / 630 480 / 480 Weight 89.4 kg Intake: IV 350 / 350 Azithromycin Inj 500 MG In NS 250 / 250 Inj 250 ML @ 250 mls/hr IV.SIG Q24H [facility] Rx#:[id number] Rocephin Inj 1,000 MG In NS Inj 100 / 100 100 ML @ 200 mls/hr IV.SIG Q24H [facility] Rx#:[id number] Oral 480 / 480 480 / 480 Output: Urine 200 / 200 Stool 0 / 0 Other: # Voids 1 Date of Last Bowel Movement 07/06/18 07/06/18 07/07/18 # Bowel Movements 1 Narrative: GENERAL: AOx3, sitting up in chair. SKIN: Warm and dry. HEAD: Atraumatic. Normocephalic. EYES: Pupils equal and round. No scleral icterus. No injection or drainage. ENT: No nasal bleeding or discharge. Mucous membranes pink and moist. NECK: Trachea midline. No JVD. CARDIOVASCULAR: Regular rate and rhythm. No murmurs appreciated. 2+ edema bilateral LE up to knees, improving. RESPIRATORY: No accessory muscle use. Clear to auscultation. Breath sounds equal bilaterally. NEUROLOGICAL: Awake and alert. No obvious cranial nerve deficits. Normal speech. PSYCHIATRIC: Appropriate mood and affect; insight and judgment normal. <Zuleika Vasquez - Last Filed: 07/07/18 09:40> Vital signs: Vital Signs 07/10/18 20:00 07/10/18 21:12 07/10/18 22:00 Temperature Pulse Rate 97 H 98 H 95 H Respiratory Rate Blood Pressure Pulse Oximetry 07/10/18 23:00 07/11/18 00:00 07/11/18 00:56 Temperature 98.4 F Pulse Rate 95 H 60 100 H Respiratory Rate 24 Blood Pressure 135/62 Pulse Oximetry 96 07/11/18 02:00 07/11/18 02:51 07/11/18 03:00 Temperature 98.4 F Pulse Rate 93 H 87 90 Respiratory Rate 24 Blood Pressure 120/57 L Pulse Oximetry 97 07/11/18 04:00 07/11/18 05:00 07/11/18 06:00 Temperature Pulse Rate 73 82 82 Respiratory Rate Blood Pressure Pulse Oximetry 07/11/18 07:00 07/11/18 08:00 07/11/18 08:55 Temperature 98.2 F 98.4 F Pulse Rate 85 86 100 H Respiratory Rate 17 18 Blood Pressure 129/63 146/66 H Pulse Oximetry 97 93 L 07/11/18 09:55 07/11/18 10:10 07/11/18 11:00 Temperature 98.2 F 98.3 F Pulse Rate 99 H 97 H 95 H Respiratory Rate 18 18 15 Blood Pressure 135/71 145/73 H 136/65 Pulse Oximetry 93 L 94 L 100 07/11/18 13:00 07/11/18 14:00 07/11/18 15:00 Temperature 98.5 F Pulse Rate 103 H 99 H 97 H Respiratory Rate 16 Blood Pressure 138/75 Pulse Oximetry 95 07/11/18 16:00 07/11/18 17:00 07/11/18 18:00 Temperature Pulse Rate 101 H 99 H 98 H Respiratory Rate Blood Pressure Pulse Oximetry Intake & Output 07/11/18 07/11/18 07/12/18 06:59 18:59 06:59 Intake Total 1200 / 1200 Output Total 1800 / 1800 Balance -600 / -600 Weight 89 kg Intake: Oral 1200 / 1200 Output: Urine 1800 / 1800 Other: Date of Last Bowel Movement 07/09/18 <Usha Acevedo Q - Last Filed: 07/11/18 19:13> Assessment and Plan - Assessment (1) Acute kidney injury Code(s): N17.9 - Acute kidney failure, unspecified Status: Acute Plan: Acute kidney injury with creatinine of 2.60 on day of consult. SO possibly ATN from decreased cardiac output/ third spacing/ infection History of chronic kidney disease with mild proteinuria possibly from diabetic or hypertensive renal disease. Baseline creatinine not available but creatinine noted to be 1.20 April 2011 Renal ultrasound with no evidence of stone, masses or hydronephrosis Plan Monitor strict I+O Continue Lasix and metolazone. Continue PhosLo, calcitriol, and sodium bicarbonate Avoid nephrotoxins including IV contrast and aminoglycosides. Plan for pacemaker placement today Labs are pending today. (2) Anemia Code(s): D64.9 - Anemia, unspecified Status: Acute Plan: Hemoglobin stable Most likely from chronic disease (3) Complete heart block by electrocardiogram Code(s): I44.2 - Atrioventricular block, complete Status: Acute Plan: Plan for pacemaker,Thursday Creatinine improving. cleared per Nephrology for pacemaker placement (4) Sepsis Code(s): A41.9 - Sepsis, unspecified organism Status: Acute Plan: ID consulted and cultures negative thus far On antibiotics for possible pneumonia <Zuleika Vasquez - Last Filed: 07/07/18 09:40> - Assessment (1) Acute kidney injury Code(s): N17.9 - Acute kidney failure, unspecified Status: Acute Plan: Patient seen and examined, agree with above. Continue Lasix, dose increased, follow the BMP. (2) Anemia Code(s): D64.9 - Anemia, unspecified Status: Acute (3) Complete heart block by electrocardiogram Code(s): I44.2 - Atrioventricular block, complete Status: Acute (4) Sepsis Code(s): A41.9 - Sepsis, unspecified organism Status: Acute <Larry Acevedo - Last Filed: 07/11/18 19:13>
[2018-07-07 09:49] LABS: Baso # (Auto) 0.2 th/mm3 (0.0-0.2); Baso % (Auto) 1.3 % (0.0-2.0); Eos # (Auto) 0.3 th/mm3 (0.0-0.4); Eos % (Auto) 1.8 % (0.0-4.0); Hematocrit 29.7 % (39.0-51.0); Hemoglobin 9.7 gm/dL (13.0-17.0); Lymph # (Auto) 6.2 th/mm3 (1.0-4.8); Lymph % (Auto) 39.6 % (9.0-44.0); Mean Corpuscular HGB Conc 32.8 % (32.0-36.0); Mean Corpuscular Hemoglobin 29.4 pg (27.0-34.0); Mean Corpuscular Volume 89.7 fL (80.0-100.0); Mean Platelet Volume 9.9 fL (7.0-11.0); Mono # (Auto) 1.7 th/mm3 (0.0-0.9); Mono % (Auto) 11.2 % (0.0-8.0); Neut # (Auto) 7.2 th/mm3 (1.8-7.7); Neut % (Auto) 46.1 % (16.0-70.0); Platelet Count 390 th/mm3 (150-450); Red Blood Count 3.31 mil/mm3 (4.50-5.90); Red Cell Distribution Width 15.4 % (11.6-17.2); White Blood Count 15.6 th/mm3 (4.0-11.0)
[2018-07-07 10:02] LABS: Calcium 9.4 mg/dL (8.5-10.1); Carbon Dioxide 21.5 meq/L (21.0-32.0); Potassium 3.9 meq/L (3.5-5.1)
[2018-07-07 11:10] LABS: Eosinophils 2 % (0-4); Lymphocytes 36 % (9-44); Monocytes 6 % (0-8); Platelet Estimate Normal (Normal); Platelet Morphology Normal (Normal)
--- NOTE | 2018-07-07 11:57 | P.PNID ---
Subjective Remarks: Patient is sitting up in a bedside chair. Reports that his breathing is better. Slept laying flat last night. Cough improved. No fever. Receiving diuretics. Denies chills. Denies chest pain. Blood cultures no growth. Pacemaker planned today. 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 72-year-old white male who has a history of aortic valve replacement in 2010. The patient presented to the [facility] in [place] and was felt to be in complete heart block. He was transferred to [facility] for further evaluation. The patient was noted to have fever with temperature of 102 degrees yesterday and white count was elevated at 21.9. The patient notes that he has had a head cold with coughing, which began 2 weeks ago. He notes that he was having pain behind the eyes and the cough was not improving. He took cough medications, but he continued with the cough. He has had no sputum production. He notes having shaking chills before he went to the [facility] for evaluation from the [facility]. Past Medical History: PAST MEDICAL HISTORY: Diabetes mellitus, hypertension, hyperlipidemia, coronary artery disease, chronic heart failure, chronic kidney disease stage III, history of aortic valve replacement in 2010. Bilateral hip replacement Oct and March 2018. Splenectomy. Allergies/Adverse Reactions: Allergies Lewhncg-Nkn-Ptw Reductase Inhibitor Allergy (Severe, Verified 04/12/18 05:50) muscle weakness atorvastatin Allergy (Mild, Verified 04/12/18 05:50) Objective Vital Signs 07/06/18 12:00 07/06/18 13:00 07/06/18 14:04 Temperature Pulse Rate 74 72 71 Respiratory Rate Blood Pressure Pulse Oximetry 07/06/18 14:50 07/06/18 15:00 07/06/18 16:00 Temperature 97.9 F Pulse Rate 72 70 70 Respiratory Rate 30 H Blood Pressure 138/65 Pulse Oximetry 93 L 92 L 07/06/18 16:01 07/06/18 17:00 07/06/18 18:01 Temperature Pulse Rate 70 68 68 Respiratory Rate 16 Blood Pressure Pulse Oximetry 07/06/18 19:00 07/06/18 20:00 07/06/18 20:54 Temperature 98.2 F Pulse Rate 69 66 64 Respiratory Rate 28 H 16 Blood Pressure 151/68 H Pulse Oximetry 92 L 96 07/06/18 21:00 07/06/18 22:00 07/06/18 23:00 Temperature 97.9 F Pulse Rate 68 79 71 Respiratory Rate 30 H Blood Pressure 143/63 H Pulse Oximetry 91 L 07/07/18 00:00 07/07/18 01:00 07/07/18 02:00 Temperature Pulse Rate 71 60 58 L Respiratory Rate Blood Pressure Pulse Oximetry 07/07/18 03:00 07/07/18 03:22 07/07/18 04:00 Temperature 97.9 F Pulse Rate 69 69 59 L Respiratory Rate 28 H 18 Blood Pressure 167/72 H Pulse Oximetry 93 L 07/07/18 05:00 07/07/18 06:00 07/07/18 07:00 Temperature Pulse Rate 56 L 56 L 66 Respiratory Rate Blood Pressure Pulse Oximetry 07/07/18 07:32 07/07/18 08:00 07/07/18 08:49 Temperature 98.0 F Pulse Rate 67 68 65 Respiratory Rate 26 H 18 Blood Pressure 159/76 H Pulse Oximetry 94 L 95 07/07/18 09:00 07/07/18 10:00 07/07/18 11:00 Temperature Pulse Rate 66 62 64 Respiratory Rate Blood Pressure Pulse Oximetry 07/07/18 11:18 Temperature 97.7 F Pulse Rate 67 Respiratory Rate 30 H Blood Pressure 159/70 H Pulse Oximetry 94 L Intake & Output 07/06/18 07/07/18 07/07/18 18:59 06:59 18:59 Intake Total 830 / 830 480 / 480 250 / 250 Output Total 200 / 200 0 / 0 Balance 630 / 630 480 / 480 250 / 250 Weight 89.4 kg Intake: IV 350 / 350 250 / 250 Azithromycin Inj 500 MG In NS 250 / 250 250 / 250 Inj 250 ML @ 250 mls/hr IV.SIG Q24H GLENIS Rx#:[id number] Rocephin Inj 1,000 MG In NS Inj 100 / 100 100 ML @ 200 mls/hr IV.SIG Q24H GLENIS Rx#:[id number] Oral 480 / 480 480 / 480 Output: Urine 200 / 200 Stool 0 / 0 Other: # Voids 1 Date of Last Bowel Movement 07/06/18 07/06/18 07/07/18 # Bowel Movements 1 06/30/18 09:55 Blood - Peripheral Aerobic Blood Culture - Final No growth in 5 days 06/30/18 09:55 Blood - Peripheral Anaerobic Blood Culture - Final No growth in 5 days 06/30/18 09:50 Blood - Peripheral Aerobic Blood Culture - Final No growth in 5 days 06/30/18 09:50 Blood - Peripheral Anaerobic Blood Culture - Final No growth in 5 days Lab - Hematology Results 07/06/18 07/07/18 03:22 09:30 WBC 15.2 H 15.6 H RBC 3.23 L 3.31 L Hgb 9.5 L 9.7 L Hct 29.1 L 29.7 L MCV 90.2 89.7 MCH 29.4 29.4 MCHC 32.6 32.8 RDW 14.9 15.4 Plt Count 370 390 MPV 10.1 9.9 Prelim Diff (Auto) Slide review pending Neut % (Auto) 54.7 46.1 Lymph % (Auto) 31.8 39.6 Bee % (Auto) 11.0 H 11.2 H Eos % (Auto) 1.2 1.8 Baso % (Auto) 1.3 1.3 Neut # (Auto) 8.3 H 7.2 Lymph # (Auto) 4.8 6.2 H Bee # (Auto) 1.7 H 1.7 H Eos # (Auto) 0.2 0.3 Baso # (Auto) 0.2 0.2 WBC Differential . Manual diff final Seg Neuts % (Manual) 55 Band Neuts % (Manual) 1 Lymphocytes % (Manual) 36 Monocytes % (Manual) 6 Eosinophils % (Manual) 2 Abs Neuts (Manual) 8.7 H Differential Comment Auto diff final . Platelet Estimate Normal Platelet Morphology Normal Lab - Chemistry Results 07/05/18 07/05/18 07/05/18 13:14 17:09 21:30 Sodium Potassium Chloride Carbon Dioxide Anion Gap BUN Creatinine Estimated GFR POC Glucose 392 H 178 H 164 H Random Glucose Calcium Phosphorus Albumin 07/06/18 07/06/18 07/06/18 03:22 07:37 11:29 Sodium 132 L Potassium 4.2 Chloride 99 Carbon Dioxide 18.5 L Anion Gap 15 BUN 102 H Creatinine 2.38 H Estimated GFR 27 L POC Glucose 144 H 227 H Random Glucose 89 Calcium 9.1 Phosphorus 6.5 H Albumin 2.7 L 07/06/18 07/06/18 07/07/18 16:39 20:04 07:46 Sodium Potassium Chloride Carbon Dioxide Anion Gap BUN Creatinine Estimated GFR POC Glucose 207 H 203 H 147 H Random Glucose Calcium Phosphorus Albumin 07/07/18 07/07/18 09:30 11:24 Sodium 135 L Potassium 3.9 Chloride 100 Carbon Dioxide 21.5 Anion Gap 14 BUN 107 H Creatinine 2.37 H Estimated GFR 27 L POC Glucose 159 H Random Glucose 156 H Calcium 9.4 Phosphorus Albumin Imaging: ITS Impressions Abdomen/Bladder Ultrasound 06/30/18 00:00 CONCLUSION: No evidence of hydronephrosis. Chest CT 06/30/18 00:00 CONCLUSION: 1. Findings probably on the basis of mild failure with patchy consolidation of both lungs and mild thickening of the interlobular septa as well as small right and tiny left pleural effusions. 2. Right lower lobe consolidation likely compressive/dependent atelectasis. 3. Previous median sternotomy and aortic valve replacement. Nonunion of the manubrial defect. 4. Coronary artery calcification. 5. A few scattered nonspecific upper limits of normal size mediastinal lymph nodes. Venous Doppler Study 06/30/18 00:00 CONCLUSION: 1. The study is negative for bilateral lower extremity deep venous thrombosis. Chest X-Ray 07/05/18 06:00 CONCLUSION: No significant change Physical Exam: PHYSICAL EXAMINATION: GENERAL: Awake and alert and oriented. HEENT: Head is atraumatic. Extraocular movements grossly intact. Pupils reactive to light. No icterus. No conjunctival erythema. Throat, oropharynx: Moist mucosa. No visible lesions. No thrush. NECK: Supple without adenopathy. LUNGS: Decreased breath sounds. HEART: Normal S1 and S2. No audible murmur. No rubs or gallops. ABDOMEN: Bowel sounds present. Soft, no tenderness appreciated. EXTREMITIES: No clubbing, cyanosis or 1+ edema. SKIN: No rash. NEUROLOGIC: Non focal. PSYCHIATRIC: Calm and cooperative. Assessment and Plan - Plan IMPRESSION: Fever and leukocytosis. Questionable etiology. Temp improved. WBC lower. Nonproductive cough. Interstitial infiltrates on chest x-ray. Possible atypical pneumonia versus viral etiology vs CHF. Mycoplasma IgG is positive indicating infection some time in past. Complete heart block. Aortic valve replacement status. RECOMMENDATIONS: 1. Continue ceftriaxone intravenous. Continue Azithromycin. 2. Monitor white blood cell count. 3. Monitor temperature.
[2018-07-07] MEDS ORDERED: Sodium Chlor 0.9% Inj 500 ML IV.CONT ONE (14:55)
[2018-07-07] MEDS ORDERED: Lidocaine PF 1% Inj 5 ML Syringe INFILTRATN ONE (14:55)
[2018-07-07] MEDS ORDERED: Bupivacaine PF 0.5% Inj 10 ML Vial ONE (15:08)
--- NOTE | 2018-07-07 17:11 | CATHPROC ---
Patient Name: Klaus Lees Study #: [id number] Initial MD: Varun Santillan Date of : 1945 Study Date: 07/07/2018 Cardiac Catheterization Report 07/07/2018 5:13:13 PM Financial #: [id number] 1 of 9 Patient Name: Klaus Lees Study #: [id number] Initial MD: Varun Santillan Date of : 1945 Study Date: 07/07/2018 Entire Case Report Patient Information Patient Name Klaus Lees Date of 1945 Age 72 years Financial # [id number] Gender M AlternateID Lab Number 6 Accession # Room Number Height (in) 66.0 Height (cm) 167.6 BSA 1.99 Weight (lbs) 197.2 Weight (kg) 89.6 Patient Address/Phone Number Home Address [facility] Home Phone Number [phone] [phone] Study Information Study Number Scheduled Start Study Start [id number] 07/07/2018 Jul 07 2018 2:54PM Referring Institution Admit Source Facility Department 1 Other [facility] Physician and Clinical Staff Initial Varun King Composition Siding Worker Urvashi Ivy,RT(R) TECH2 Other Anesthesia, SAFETY TECHNICIAN Other Pati Gregorio,AGRICULTURAL CONSULTANT TECH2 Recorder Julisa Torres,Facundo Enrique,RT(R) Procedures Performed Procedure Lead Insertion 07/07/2018 5:13:13 PM Financial #: [id number] 2 of 9 Patient Name: Klaus Lees Study #: [id number] Initial MD: Varun Santillan Date of : 1945 Study Date: 07/07/2018 Equipment Time Penal Officer Description Size Mfg Part Number Used/Scraped INTRODUCER SET, 16:00 [employer] FR 5 [id number] *[id number] Used MICROPUNCTURE STIFF DERMABOND, ADHESIVE SKIN [id number] 15:37 CORDIS/PACER * Used GLUE MINI *[id number] 15:37 W[employer]gle BLANKET,WARM AIR CCL * Used *[id number] TP-1103 15:37 MEDLINE INDUSTRIES SUTURE, STRIP PLUS 1/2" * Used *[id number] 15:37 MEDLINE PACER PADGETT, LIMB * 2530 *[id number] Used [id number] 15:37 MEDLINE PACER PACK, PACER CUSTOM * Used *[id number] 15:29 Needle Sponge Count 2 22 Used 15:29 Needle Sponge Count 25 1 Used 15:29 Needle Sponge Count 6 6 Used SUTURE, 0 ETHIBOND [CT1] (CX21D), 8pk SUTURE, 4-0 MONOCRYL [PS2] (Y496G) [facility] PAD, ELECTROSURGICAL 15:37 * [id number] *[id number] Used SURGICAL GROUNDING ORANGE LEAD, CAPSURE FIX NOVUS, 4076-45CM 16:07 VITATRON [employer] 45CM Used 45CM *[id number] LEAD, CAPSURE FIX NOVUS, 4076-52CM 16:04 VIT[employer]RON [employer] 52CM Used 52CM *[id number] 16:26 [employer] PACEMAKER, PATRICIA XT DR BRICEE-DDDR [id number] Used [id number] 15:37 [employer]. / * Used *68065 Equipment Model, Serial, Lot Number and Expiration Data Description Model Number Serial Number Lot Number Expiration Date LEAD, CAPSURE FIX NOVUS, 45CM 4076-45CM [id number] 05-03-2020 LEAD, CAPSURE FIX NOVUS, 52CM 4076-52CM [id number] 05-21-2020 PACEMAKER, PATRICIA XT [id number] 11-14-2019 Insurance Information Insurance Payor [facility] Third Green Party Third Green Party Number NF SG [facility] History: Allergies Allergy Reaction atorvastatin Fddyurf-Gwh-Zcg Reductase muscle weakness Inhibitor 07/07/2018 5:13:13 PM Financial #: [id number] Patient Name: Klaus Lees Study #: [id number] Initial MD: Varun Santillan Date of : 1945 Study Date: 8 History: Risk Factors Hypertension Dyslipidemia Previous Heart Failure Yes Yes Yes Prior Valve Surgery Yes Diabetes Yes Medication Medication Total Dose (Bolus/Oral) Medication Total Dosage/Unit 2% XYLOCAINE 20 mL Bupivacaine 10 mL Medications (Bolus/Oral) Medication Time Given Dosage/Unit Administered By Reason 2% XYLOCAINE 07/07/2018 3:46:08 PM 20 mL Varun Santillan 20 mL 2% XYLOCAINE given in lab by Varun Santillan in Left shoulder via Subcutaneous. Ordered by Wandy Santillan. Bupivacaine 07/07/2018 3:46:08 PM 10 mL Varun Santillan 10 mL Bupivacaine given in lab by Varun Santillan in Left shoulder via Subcutaneous. Ordered by Mike Santillan Medication (Drip) Medication Time Given Dosage/Unit Concentration/Unit Diluent (ml) Solution ANCEF 07/07/2018 3:29:52 PM 2 g 2 g ANCEF given in lab by Anesthesia, SAFETY TECHNICIAN via Peripheral IV. Reason: As per physicians verbal order. IV Solutions 07/07/2018 3:13:25 PM 0 mL (IV) NaCl .9 IV Solutions given in lab by Julisa Torres RN in Right Antecubital via Peripheral IV. Pump/Drip Fl ow = 30 ml/hr using NaCl .9. Reason: As per physicians verbal order. IV Solutions 07/07/2018 3:13:39 PM 0 mL (IV) NaCl .9 IV Solutions given in lab by Julisa Torres RN in Right Antecubital via Peripheral IV. Pump/Drip Fl ow = 30 ml/hr using NaCl .9. Reason: As per physicians verbal order. VANCOMYCIN DRIP 07/07/2018 3:28:16 PM 1 g 1 g VANCOMYCIN DRIP given in lab by Anesthesia, SAFETY TECHNICIAN via Peripheral IV. Reason: As per physicians pato bal order. 07/07/2018 5:13:13 PM Financial #: [id number] 4 of 9 Patient Name: Klaus Lees Study #: [id number] Initial MD: Varun Santillan Date of : 1945 Study Date: 07/07/2018 Initial Case Assessment Cardiovascular HR NIBP 67 165/79 Edema Present Skin color Skin None Normal Warm Dry Circulatory - Right Pulses Dorsalis Pedis 1 Scale (0,1,2,3,4,d) Circulatory - Left Pulses Dorsalis Pedis 1 Scale (0,1,2,3,4,d) Circulatory - Lower Extremities Color Lower Right Color Lower Left Normal Normal Neurological State Oriented to time-place- Alert Moves all extremities person Respiration - General Respiration Rate SpO2 (%) (B/min) 24 99 07/07/2018 5:13:13 PM Financial #: [id number] 5 of 9 Patient Name: Klaus Lees Study #: [id number] Initial MD: Varun Santillan Date of : 1945 Study Date: 07/07/2018 Final Case Assessment Cardiovascular HR NIBP 90 126/59 Edema Present Skin color Skin None Normal Warm Dry Circulatory - Right Pulses Dorsalis Pedis 1 Scale (0,1,2,3,4,d) Circulatory - Left Pulses Dorsalis Pedis 1 Scale (0,1,2,3,4,d) Circulatory - Lower Extremities Color Lower Right Color Lower Left Normal Normal Neurological State Drowsy Moves all extremities Respiration - General Respiration Rate SpO2 (%) O2 (lpm) (B/min) 26 91 6 Chronological Log Time Study Chronological Log 14:54:51 Patient arrived via Bed. 14:54:52 Patient Name, D.O.B, / Armband Verified By R.N. 14:54:53 Consent signed by the physician and the patient and verified by the [facility] staff. 14:54:54 Pre-op and post- op instructions given; patient acknowledges understanding of instructions. 14:54:54 Anesthesia at bedside. Assumes care of patient. 14:54:56 Verbal Stimulation=2 Physical Stimulation=2 Airway=2 Respiration=2 TOTAL=8. (0=absent, 1=li mited, 2=present) 14:54:57 History and physical on the chart. 14:54:59 2% CHLORHEXIDINE GLUCONATE WASH AND NASAL SWIPE DONE PRIOR TO PROCEDURE. 14:55:00 Patient Warmer Placed on the Table. 07/07/2018 5:13:13 PM Financial #: [id number] 6 of 9 Patient Name: Klaus Lees Study #: [id number] Initial MD: Varun Santillan Date of : 1945 Study Date: 07/07/2018 14:55:19 Patient has been NPO for More than 6Hrs. 14:55:19 Skin Breakdown- tape blister denuded skin left antecubetal space. 14:59:00 Disposable Defibrillator Pads Placed On Patient. 14:59:21 Libra Prominences Protected Assessment: Initial Case, HR=67 BPM, HNRV=604/79 mmhg, Edema=None, Color=Normal, Skin = Warm, D ry Right Pulses: Jose David Ped=1 Left Pulses: Jose David Ped=1 15:00:17 Lower Right Extremities: Color=Normal Lower Left Extremities: Color=Normal Neurological: State=Alert, Ox3, HEIN Respiration: Resp=24 B/min, SpO2=99 % 15:00:23 A # 18 IV was noted in the Antecubital (right). Grade = 0 15:00:25 A # 20 IV was inserted in the Forearm (left). 1 attempt made. Grade = 0 IV Solutions given in lab by Julisa Torres, OSMIN in Right Antecubital via Peripheral IV. Pump/D rip Flow = 30 ml/hr 15:13:25 using NaCl .9. Reason: As per physicians verbal order. IV Solutions given in lab by Julisa Torres RN in Right Antecubital via Peripheral IV. Pump/D rip Flow = 30 ml/hr 15:13:39 using NaCl .9. Reason: As per physicians verbal order. First Sponge And Instrument Count Done by Facundo Ang, RT(R). 15:22:33 Hypo's: 6, Sponges: 25, Bovie/scratch: 2 Sutures: 10, Blades: 2, Instruments: 26, Syveck Patches: 0 Verified by 15:23:28 Table restraints applied according to hospital policy 15:23:34 Bovie ground pad applied to: abd 15:23:51 LMA inserted by anesthesia 15:24:09 Left Upper Chest Prepped Times Two. 15:28:16 1 g VANCOMYCIN DRIP given in lab by Anesthesia, SAFETY TECHNICIAN via Peripheral IV. Reason: As per phys icians verbal order. 15:29:52 2 g ANCEF given in lab by Anesthesia, SAFETY TECHNICIAN via Peripheral IV. Reason: As per physicians pato bal order. 15:31:45 A sterile drape was applied after a 5 minute prep drying time. 15:33:24 MD paged 15:33:34 MD responded 15:40:37 Reference ECG taken 15:40:44 MD arrived. Time Out. Correct patient, procedure, procedure equipment, site and side verified with physicia n present. Time 15:44:46 concurred by MD, individual staff and SAFETY TECHNICIAN. Time Out #2 - Consents verified, patient in correct position, all results are labled and displa yed, safety precautions 15:45:46 taken, antibiotics administered. Time out concurred by MD, individual staff and SAFETY TECHNICIAN in procedu re 15:45:47 Case Start 15:46:08 20 mL 2% XYLOCAINE given in lab by Varun Santillan in Left shoulder via Subcutaneous. Ordered b y Varun Santillan. 15:46:08 10 mL Bupivacaine given in lab by Varun Santillan in Left shoulder via Subcutaneous. Ordered by Varun Santillan. 15:47:12 Surgical Incision Made. 15:56:40 A pocket was created at the L Upper Chest. 15:59:16 Vascular access was obtained in the Subclav. Vein (Lft. A INTRODUCER SET, MICROPUNCTURE STIFF FR 5 was advanced into the Subclav. Vein (Lft using the M odified 15:59:23 Seldinger technique. 07/07/2018 5:13:13 PM Financial #: [id number] 7 of 9 Patient Name: Klaus Lees Study #: [id number] Initial MD: Varun Santillan Date of : 1945 Study Date: 07/07/2018 16:01:22 Vascular access was obtained in the Subclav. Vein (Lft. 16:01:40 A sheath was advanced into the Subclav. Vein (Lft using the Percutaneous technique. 7F MEDT RONIC SHEATH 16:03:27 A LEAD, CAPSURE FIX NOVUS, 52CM 52CM was inserted and positioned in the RV. 16:06:10 The RV lead impedance and threshold being tested. 16:08:26 LEAD BEING REPOSITIONED 16:10:10 The RV lead impedance and threshold being tested. 16:13:51 The RV lead was sutured to the fascia. 16:17:06 A sheath was advanced into the Subclav. Vein (Lft using the Percutaneous technique. 7F MEDT RONIC SHEATH 16:17:19 A LEAD, CAPSURE FIX NOVUS, 45CM 45CM was inserted and positioned in the RA. 16:17:52 Lead placement verified under fluoroscopy 16:20:56 The Atrial lead impedance and threshold is being tested. 16:28:02 The Atrial lead was sutured to the fascia. 16:30:57 A PACEMAKER, PATRICIA XT DR QAE-DDDR was connected and placed in the pocket. 16:31:05 Pocket flushed with antibiotic solution Second Sponge And Instrument Count Done by Facundo Ang RT(R). 16:32:40 Hypo's: 6, Sponges: 25, Bovie/scratch: 2 Sutures: 10, Blades: 2, Instruments: Syveck Patches: 0 Verified by 16:33:30 The pocket is being closed. 16:59:49 Case End (Physician broke scrub) Final Sponge And Instrument Count Done by Facundo Ang RT(R). 17:01:10 Hypo's: 6, Sponges: 25, Bovie/scratch: 2 Sutures: 10, Blades: 2, Instruments: 26, Syveck Patches: 0 Verified by 17:01:28 Implant Procedure was performed. 17:01:37 A PPM Implant . (Dual) 17:02:52 Steri-strips and a sterile dressing applied to site. 17:02:58 LMA withdrawn by anesthesia and placed to supplemental oxygen by [facility]. Assessment: Final Case, HR=90 BPM, TKMX=168/59 mmhg, Edema=None, Color=Normal, Skin = Warm, Dry Right Pulses: Jose David Ped=1 Left Pulses: Jose David Ped=1 17:04:06 Lower Right Extremities: Color=Normal Lower Left Extremities: Color=Normal Neurological: State=Drowsy, HEIN Respiration: Resp=26 B/min, SpO2=91 %, O2=6 lpm 17:05:23 No case complications noted. 17:05:26 Cine recording checked. 17:05:30 Bedside Report will be given. 17:05:34 Implantable Device card placed in patient's chart. 17:05:41 PACU called. Spoke to Chapman. 17:07:13 Defibrillator and ground pads removed. Skin intact. 17:07:28 A sling was placed on the affected arm. 17:15:37 Patient moved to stretcher and trasnported to PACU with SAFETY TECHNICIAN and tech accompanying. 07/07/2018 5:13:13 PM Financial #: [id number] 8 of 9 Patient Name: Klaus Lees Study #: [id number] Initial MD: Varun Santillan Date of : 1945 Study Date: 07/07/2018 End Study - Contrast Media Used In Study Contrast Total Opened (mL) Total Used (mL) Total Wasted (mL) Unspecified 0 0 0 End Study - Radiation Exposure Fluoro Time (minutes) 8.0 End Study - Patient Disposition Complications Transferred To Interventional Outcome No Telemetry Bed successful 07/07/2018 5:13:13 PM Financial #: [id number]
[2018-07-07] MEDS ORDERED: Acetaminophen 325 MG Tablet PO PRN (17:16)
[2018-07-07] MEDS ORDERED: fentaNYL Citrate Inj 100 MCG/2 ML Ampul ONE (17:25)
[2018-07-07] MEDS ORDERED: *morphine SULFATE 4 MG/ML PERIprocedure ONLY ONE (17:29)
--- NOTE | 2018-07-07 17:42 | XR ---
EXAM DATE: 07/07/2018 5:39 PM EDT AGE/SEX: 72 years / Male INDICATIONS: Post pacemaker placement. CLINICAL DATA: This is the patient's subsequent encounter. Patient reports that signs and symptoms h ave been present for 1 day and indicates a pain score of 5/10. MEDICAL/SURGICAL HISTORY: . Hypertension. Diabetes. . Valve repair. COMPARISON: [facility] [place], CHEST 1V SINGLE AP, 07/05/2018. . FINDINGS: Single view the chest obtained at there is prominent bilateral perihilar vascular congestion. There a re moderate-sized bilateral pleural effusions. I don't see any visible pneumothorax. There is a new l eft subclavian bipolar pacer in good position. There are sternal wires and clips. CONCLUSION: New left subclavian bipolar pacer in good position. No evidence of pneumothorax. Pulmonary vessel con gestion and pleural effusions remain. Electronically signed by: Josiah Ahuja MD 07/07/2018 5:41 PM EDT
--- NOTE | 2018-07-07 20:00 | P.CON ---
History of Present Illness Service: Hematology Consult date: 07/07/18 Reason for Consult: Evaluation of leukocytosis. Primary Care Provider: Hussein Morgan MD, PhD Chief Complaint: fatigue, sob History of Present Illness: 72-year-old gentleman with multiple medical problems including cardiac and renal failures was admitted with increasing shortness of breath and was found to have pleural effusion and CHF patient also had elevated white count of 221,000 at the time of admission he was treated for and with infection with multiple antibiotics and ready consultation. His blood cultures have not grown any specific organism and he has not been on steroids either. Yet his white count has been high since hematology was consulted. His chest x-ray findings have been consistent with CHF and possible viral pneumonitis but sputum cultures were negative. FOR[facility]LY [facility] - History History Provided By: Patient (No known history of hematologic diathesis. No prior bone marrow biopsy.) - Medical History Medical History: Medical History (Last Reviewed 07/07/18 @ 11:59 by Valentin Rodriguez MD) CAD (coronary artery disease) CHF (congestive heart failure) CKD (chronic kidney disease) stage 3, GFR 30-59 ml/min Diabetes HLD (hyperlipidemia) HTN (hypertension) - Surgical History Surgical History: Surgical History (Last Reviewed 07/07/18 @ 11:59 by Valentin Rodriguez MD) History of hip replacement S/P AVR (aortic valve replacement) - Family History Family History: Family History (Last Reviewed 07/07/18 @ 09:39 by Batsheva Carrera) Mother Pacemaker - Tobacco History Second Hand Smoke Exposure: No Tobacco Use In Past 30 Days: No Smoking Status: Never smoker - Alcohol History How Often Do You Have a Drink Containing Alcohol: Monthly or less - Substance Use History Substance History: No History of Abuse - Immunization History Tetanus Immunization: <5 Years Hx Influenza Vaccine This Season: No Medications and Allergies Active Medications: Active Medications Acetaminophen (Tylenol) 650 mg PO Q6H PRN PRN Reason: TEMPERATURE > 100 F Last Admin: 07/01/18 22:08 Dose: 650 mg Acetaminophen (Tylenol) 650 mg PO Q4H PRN PRN Reason: PAIN SCALE 1 TO 2 Al Hydroxide/Mg Hydroxide (Milk Of Hannah Liq) 30 ml PO Q12H PRN PRN Reason: Mild Constipation Albuterol (Duoneb Neb (Eyad)) 1 ampul NEB Q6HR NEB [facility] Last Admin: 07/07/18 16:01 Dose: Not Given Albuterol (Albuterol Neb (Prn)) 2.5 mg NEB Q2HR NEB PRN PRN Reason: DYSPNEA Aspirin (Ecotrin) 81 mg PO DAILY [facility] Last Admin: 07/07/18 08:34 Dose: 81 mg Benzocaine/Menthol (Cepacol Max Strength) 1 lozenge BUCCAL Q2H PRN PRN Reason: SORE THROAT Last Admin: 07/04/18 08:43 Dose: 1 lozenge Benzonatate (Tessalon Perles) 100 mg PO Q8H PRN PRN Reason: COUGH Last Admin: 07/06/18 00:28 Dose: 100 mg Bisacodyl (Dulcolax Supp) 10 mg RECTAL DAILY PRN PRN Reason: SEVERE CONSITIPATION Calcitriol (Rocaltrol) 0.25 mcg PO DAILY [facility] Last Admin: 07/07/18 08:36 Dose: 0.25 mcg Calcium Acetate (Phoslo) 667 mg PO TID [facility] Last Admin: 07/07/18 18:58 Dose: 667 mg Chlorhexidine Gluconate (Chlorhexidine 2% Cloth) 3 pack TOPICAL [employer] [facility] Stop: 07/10/18 08:04 Last Admin: 07/07/18 14:40 Dose: 3 pack Dextrose (D50w Vial) 50 ml IV.PUSH UNSCH PRN PRN Reason: PER HYPOGLYCEMIA PROTOCOL Furosemide (Lasix Inj) 80 mg IV.PUSH DAILY@09 [facility] Last Admin: 07/07/18 08:35 Dose: 80 mg Furosemide (Lasix Inj) 40 mg IV.PUSH DAILY@18 [facility] Last Admin: 07/07/18 18:58 Dose: 40 mg Glucagon (Glucagon Inj) 1 mg OTHER PRN PRN PRN Reason: for Hypoglycemia Protocol Heparin Sodium (Porcine) (Heparin Inj) 5,000 units SQ Q12H [facility] Last Admin: 07/07/18 08:34 Dose: Not Given Hydralazine HCl (Apresoline) 100 mg PO TID [facility] Last Admin: 07/07/18 18:58 Dose: 100 mg Ceftriaxone Sodium 1,000 mg/ (Sodium Chloride) 100 mls @ 200 mls/hr IV.SIG Q24H [facility] Last Infusion: 07/07/18 12:57 Dose: Infused Azithromycin 500 mg/ Sodium (Chloride) 250 mls @ 250 mls/hr IV.SIG Q24H [facility] Last Infusion: 07/07/18 09:30 Dose: Infused Vancomycin HCl 1,000 mg/ (Sodium Chloride) 250 mls @ 250 mls/hr IV.SIG [employer]IVER [facility] Stop: 07/10/18 08:04 Last Infusion: 07/07/18 16:30 Dose: Infused Insulin Detemir (Levemir Inj) 8 unit SQ BID [facility] Last Admin: 07/07/18 08:35 Dose: 8 unit Insulin Human Regular (Novolin R Correctional Sugar Inj) 0 units SQ ACHS [facility]; Protocol Last Admin: 07/07/18 18:57 Dose: 2 units Lactulose (Lactulose Liq) 30 ml PO DAILY PRN PRN Reason: SEVERE CONSITIPATION Magnesium Oxide (Mag-Ox) 800 mg PO UNSCH PRN PRN Reason: For Magnesium 1.2 - 1.6 mg/dL Metolazone (Zaroxolyn) 5 mg PO DAILY@0900,1800 [facility] Last Admin: 07/07/18 19:00 Dose: 5 mg Miscellaneous Information (Mis Nursing Information) 1 each OTHER UNSCH PRN PRN Reason: SEE LABEL COMMENTS Stop: 07/08/18 17:38 Morphine Sulfate (Morphine Inj) 2 mg IV.PUSH Q2H PRN PRN Reason: PAIN SCALE 6 TO 10 Last Admin: 07/06/18 01:27 Dose: 2 mg Multivitamins (Theragran) 1 tab PO DAILY [facility] Last Admin: 07/07/18 08:36 Dose: 1 tab Mupirocin (Bactroban 2% Nasal Oint) 1 applicatio EACH NARE [employer] [facility] Stop: 07/10/18 08:04 Ondansetron HCl (Zofran Inj) 4 mg IV.PUSH Q6H PRN PRN Reason: NAUSEA OR VOMITING Oxycodone HCl (Roxicodone) 5 mg PO Q4H PRN PRN Reason: Pain 1-5 Last Admin: 07/07/18 19:00 Dose: 5 mg Pantoprazole Sodium (Protonix) 40 mg PO DAILY [facility] Last Admin: 07/07/18 08:36 Dose: 40 mg Povidone Iodine (Betadine 5% Antisepsis Kit) 1 applicatio EACH NARE [employer] [facility] Stop: 07/10/18 08:04 Last Admin: 07/07/18 15:15 Dose: 1 applicatio Senna/Docusate Sodium (Amelia-Colace) 1 tab PO BID [facility] Last Admin: 07/07/18 08:35 Dose: 1 tab Sennosides (Senokot) 17.2 mg PO Q12H PRN PRN Reason: Moderate Constipation Last Admin: 07/05/18 08:36 Dose: 17.2 mg Sodium Bicarbonate (Sodium Bicarbonate) 650 mg PO BID [facility] Last Admin: 07/07/18 08:36 Dose: 650 mg Sodium Chloride (Ns Flush) 2 ml IV.FLUSH BID [facility] Last Admin: 07/07/18 08:35 Dose: 2 ml Sodium Chloride (Ns Flush) 2 ml IV.FLUSH PRN PRN PRN Reason: FLUSH AFTER USING IV ACCESS Last Admin: 07/06/18 17:21 Dose: 2 ml Zolpidem Tartrate (Ambien) 10 mg PO HS PRN PRN Reason: SLEEP Last Admin: 07/06/18 21:29 Dose: 10 mg Allergies Allergy/AdvReac Type Severity Reaction Status Date / Time [id number] Reductase Allergy Severe muscle Verified 04/12/18 05:50 Inhibitor weakness atorvastatin Allergy Mild Verified 04/12/18 05:50 Home Medications Medication Instructions Recorded Confirmed Type amlodipine 10 mg PO DAILY 06/30/18 06/30/18 History aspirin 81 mg PO BID 06/30/18 07/02/18 History calcitriol 0.25 mcg PO DAILY 06/30/18 07/02/18 History cinnamon bark [Cinnamon] 1 cap PO BID 06/30/18 07/02/18 History coenzyme Q10 [CoQ-10] 100 mg PO DAILY 06/30/18 06/30/18 History diphenhydramine-acetaminophen 1 tab PO HS PRN 06/30/18 07/02/18 History [Tylenol PM Extra Strength] furosemide 40 mg PO BID 06/30/18 06/30/18 History glucosamine sulfate 1,000 mg PO BID 06/30/18 07/02/18 History insulin aspart U-100 [Novolog 5 unit SUB-Q AC BREAKFAST 06/30/18 06/30/18 History U-100 Insulin aspart] insulin aspart U-100 [Novolog 8 units SUB-Q AC DINNER 06/30/18 07/02/18 History U-100 Insulin aspart] insulin aspart U-100 [Novolog 8 units SUB-Q AC LUNCH 06/30/18 07/02/18 History U-100 Insulin aspart] insulin glargine [Lantus U-100 28 units SUB-Q HS 06/30/18 07/02/18 History Insulin] metformin 500 mg PO DAILY 06/30/18 07/02/18 History metoprolol tartrate 50 mg PO BID 06/30/18 06/30/18 History multivitamin 1 tab PO DAILY 06/30/18 07/02/18 History omega [id number]-fish oil [Fish Oil] 1,200 mg PO BID 06/30/18 07/02/18 History spironolactone 25 mg PO DAILY 06/30/18 06/30/18 History Physical Exam Vital signs: Vital Signs 07/06/18 20:00 07/06/18 20:54 07/06/18 21:00 Temperature Pulse Rate 66 64 68 Respiratory Rate 16 Blood Pressure Pulse Oximetry 96 07/06/18 22:00 07/06/18 23:00 07/07/18 00:00 Temperature 97.9 F Pulse Rate 79 71 71 Respiratory Rate 30 H Blood Pressure 143/63 H Pulse Oximetry 91 L 07/07/18 01:00 07/07/18 02:00 07/07/18 03:00 Temperature 97.9 F Pulse Rate 60 58 L 69 Respiratory Rate 28 H Blood Pressure 167/72 H Pulse Oximetry 93 L 07/07/18 03:22 07/07/18 04:00 07/07/18 05:00 Temperature Pulse Rate 69 59 L 56 L Respiratory Rate 18 Blood Pressure Pulse Oximetry 07/07/18 06:00 07/07/18 07:00 07/07/18 07:32 Temperature 98.0 F Pulse Rate 56 L 66 67 Respiratory Rate 26 H Blood Pressure 159/76 H Pulse Oximetry 94 L 07/07/18 08:00 07/07/18 08:49 07/07/18 09:00 Temperature Pulse Rate 68 65 66 Respiratory Rate 18 Blood Pressure Pulse Oximetry 95 07/07/18 10:00 07/07/18 11:00 07/07/18 11:18 Temperature 97.7 F Pulse Rate 62 64 67 Respiratory Rate 30 H Blood Pressure 159/70 H Pulse Oximetry 94 L 07/07/18 12:00 07/07/18 13:24 07/07/18 14:00 Temperature Pulse Rate 59 L 66 60 Respiratory Rate Blood Pressure Pulse Oximetry 07/07/18 17:22 07/07/18 17:25 07/07/18 17:30 Temperature 98 F Pulse Rate 97 H 100 H Respiratory Rate 24 26 H Blood Pressure 163/76 H 156/72 H Pulse Oximetry 93 L 92 L 92 L 07/07/18 17:45 07/07/18 18:00 07/07/18 18:15 Temperature Pulse Rate 100 H 101 H 100 H Respiratory Rate 25 H 26 H 24 Blood Pressure 148/76 H 152/78 H 148/78 H Pulse Oximetry 93 L 93 L 94 L 07/07/18 19:06 Temperature Pulse Rate 106 H Respiratory Rate 38 H Blood Pressure 145/70 H Pulse Oximetry Intake & Output 07/07/18 07/07/18 07/08/18 06:59 18:59 06:59 Intake Total 480 / 480 750 / 750 30 / 30 Output Total 450 / 450 675 / 675 675 / 675 Balance 30 / 30 75 / 75 -645 / -645 Weight 89.4 kg Intake: IV 600 / 600 Azithromycin Inj 500 MG In NS 250 / 250 Inj 250 ML @ 250 mls/hr IV.SIG Q24H [facility] Rx#:[id number] Vancomycin Inj 1,000 MG In NS 250 / 250 Inj 250 ML @ 250 mls/hr IV.SIG [employer]IVER [facility] Rx#:[id number] Rocephin Inj 1,000 MG In NS Inj 100 / 100 100 ML @ 200 mls/hr IV.SIG Q24H [facility] Rx#:[id number] Oral 480 / 480 150 / 150 30 / 30 Output: Urine 450 / 450 675 / 675 675 / 675 Stool 0 / 0 0 / 0 Other: # Voids 2 1 # Incontinent Voids 1 Date of Last Bowel Movement 07/06/18 07/07/18 07/07/18 # Bowel Movements 1 1 Assessment and Plan - Plan 1 leukocytosis partially resolving but persistent. It is left shifted and appears reactive with occasional promyelocytes. No evidence of blasts on peripheral smear. This appears reactive and a leukemoid reaction is considered unlikely but no evidence of acute leukemia. We will confirm that with the flow cytometry and if that is negative he can be followed clinically. Discussed with patient and and they agreed to the plan. 2 anemia of renal insufficiency. Patient will benefit from Procrit for the same and that will be ordered in consultation with primary team. I informed patient and his that flow cytometry results will take approximately 5 days. If he is discharged prior to that I will follow him up in the office with results and also with the administration of Procrit etc.
[2018-07-07] MEDS: Morphine Sulfate Inj 2 MG/ML Vial IV.PUSH PRN (20:25)
[2018-07-08 05:09] LABS: Calcium 9.6 mg/dL (8.5-10.1); Carbon Dioxide 17.9 meq/L (21.0-32.0); Potassium 4.8 meq/L (3.5-5.1)
--- NOTE | 2018-07-08 08:20 | P.PNCA ---
Subjective Interval history: Patient is doing well today after pacemaker placement yesterday, denies any issues overnight. He reports his breathing is better. Urine output has slowed and it appears Lasix dose has been decreased from 80 mg/40 mg to 40 mg daily. CXR reviewed. Reveals worsening bilateral pulmonary edema. s/p dual chamber PPM with no pneumothorax. Physical Exam Vital signs: Vital Signs 07/07/18 08:49 07/07/18 09:00 07/07/18 10:00 Temperature Pulse Rate 65 66 62 Respiratory Rate 18 Blood Pressure Pulse Oximetry 95 07/07/18 11:00 07/07/18 11:18 07/07/18 12:00 Temperature 97.7 F Pulse Rate 64 67 59 L Respiratory Rate 30 H Blood Pressure 159/70 H Pulse Oximetry 94 L 07/07/18 13:24 07/07/18 14:00 07/07/18 17:22 Temperature 98 F Pulse Rate 66 60 97 H Respiratory Rate 24 Blood Pressure 163/76 H Pulse Oximetry 93 L 07/07/18 17:25 07/07/18 17:30 07/07/18 17:45 Temperature Pulse Rate 100 H 100 H Respiratory Rate 26 H 25 H Blood Pressure 156/72 H 148/76 H Pulse Oximetry 92 L 92 L 93 L 07/07/18 18:00 07/07/18 18:15 07/07/18 19:00 Temperature 98.4 F Pulse Rate 101 H 100 H 109 H Respiratory Rate 26 H 24 31 H Blood Pressure 152/78 H 148/78 H 132/60 Pulse Oximetry 93 L 94 L 94 L 07/07/18 19:06 07/07/18 19:16 07/07/18 20:00 Temperature Pulse Rate 106 H 108 H 106 H Respiratory Rate 38 H 32 H Blood Pressure 145/70 H 122/59 L Pulse Oximetry 93 L 07/07/18 20:16 07/07/18 20:34 07/07/18 21:00 Temperature Pulse Rate 103 H 109 H 109 H Respiratory Rate 28 H 30 H Blood Pressure 121/54 L Pulse Oximetry 93 L 92 L 07/07/18 22:00 07/07/18 23:00 07/07/18 23:01 Temperature 97.9 F Pulse Rate 108 H 104 H Respiratory Rate 24 30 H Blood Pressure 128/60 Pulse Oximetry 95 07/08/18 00:00 07/08/18 00:16 07/08/18 01:00 Temperature Pulse Rate 104 H 100 H Respiratory Rate 24 Blood Pressure Pulse Oximetry 07/08/18 02:00 07/08/18 03:00 07/08/18 03:54 Temperature 97.9 F Pulse Rate 90 108 H 62 Respiratory Rate 31 H 24 Blood Pressure 128/61 Pulse Oximetry 94 L 07/08/18 04:00 07/08/18 05:00 07/08/18 06:00 Temperature Pulse Rate 100 H 100 H 102 H Respiratory Rate Blood Pressure Pulse Oximetry Intake & Output 07/07/18 07/08/18 07/08/18 18:59 06:59 18:59 Intake Total 750 / 750 510 / 510 Output Total 675 / 675 1275 / 1275 Balance 75 / 75 -765 / -765 Weight 205 lb 0.478 oz Intake: IV 600 / 600 Azithromycin Inj 500 MG In NS 250 / 250 Inj 250 ML @ 250 mls/hr IV.SIG Q24H [facility] Rx#:[id number] Vancomycin Inj 1,000 MG In NS 250 / 250 Inj 250 ML @ 250 mls/hr IV.SIG SPR[employer] G[employer] REPAIRER [facility] Rx#:[id number] Rocephin Inj 1,000 MG In NS Inj 100 / 100 100 ML @ 200 mls/hr IV.SIG Q24H [facility] Rx#:[id number] Oral 150 / 150 510 / 510 Output: Urine 675 / 675 1275 / 1275 Stool 0 / 0 Other: # Voids 2 # Incontinent Voids 1 Date of Last Bowel Movement 07/07/18 07/07/18 # Bowel Movements 1 1 Narrative: GENERAL: Well-developed well-nourished. In no acute distress. NECK: No carotid bruits. No JVD. CARDIOVASCULAR: Regular rate and rhythm. No murmur appreciated. Pacemaker in place on left chest wall with no swelling, ecchymosis, or tenderness. RESPIRATORY: No accessory muscle use. Clear to auscultation. Breath sounds equal bilaterally. MUSCULOSKELETAL: No clubbing or cyanosis. No edema. Left arm in a sling. NEUROLOGICAL: Awake and alert. Normal speech. Assessment and Plan - Plan Assessment: Patient admitted as transfer from [facility] with CHB and junctional escape rhythm, hemodynamically stable in the setting of ADHF, fever, leukocytosis, and CKD stage 3. There was concern for possible bacterial endocarditis in this setting, however transthoracic echocardiogram and transesophageal echocardiogram did not reveal any valvular vegetations. LV systolic function is normal. Still with persistent hypervolemic state. -CHB, with junctional escape rhythm, no s/p Medtronic dual chamber PPM 07/07/18 -HFpEF -symptomatically improved past few days with aggressive diuresis, however worsening pulmonary edema on CXR -Anasarca with lower extremity edema and hypoalbuminemia -Chronic Leukocytosis, cultures negative to date, was cleared by ID for pacemaker, hematology consult appreciated. -CKD stage 3, with SO, stable -CAD, asymptomatic -Moderate aortic bioprosthesis stenosis on echo, normal EF Recommendations: -s/p PPM 07/07/18 - no lifting with left arm, follow-up in 10 days -Nephrology following for SO on CKD -Continue home ASA 81mg daily -Continue diuresis, dose decreased with creatinine bump, would push diuresis further if ok with nephrology.
--- NOTE | 2018-07-08 08:43 | P.PNIM ---
Subjective Interval history: pt feels great. able to lye flat Physical Exam Vital signs: Vital Signs 07/07/18 08:49 07/07/18 09:00 07/07/18 10:00 Temperature Pulse Rate 65 66 62 Respiratory Rate 18 Blood Pressure Pulse Oximetry 95 07/07/18 11:00 07/07/18 11:18 07/07/18 12:00 Temperature 97.7 F Pulse Rate 64 67 59 L Respiratory Rate 30 H Blood Pressure 159/70 H Pulse Oximetry 94 L 07/07/18 13:24 07/07/18 14:00 07/07/18 17:22 Temperature 98 F Pulse Rate 66 60 97 H Respiratory Rate 24 Blood Pressure 163/76 H Pulse Oximetry 93 L 07/07/18 17:25 07/07/18 17:30 07/07/18 17:45 Temperature Pulse Rate 100 H 100 H Respiratory Rate 26 H 25 H Blood Pressure 156/72 H 148/76 H Pulse Oximetry 92 L 92 L 93 L 07/07/18 18:00 07/07/18 18:15 07/07/18 19:00 Temperature 98.4 F Pulse Rate 101 H 100 H 109 H Respiratory Rate 26 H 24 31 H Blood Pressure 152/78 H 148/78 H 132/60 Pulse Oximetry 93 L 94 L 94 L 07/07/18 19:06 07/07/18 19:16 07/07/18 20:00 Temperature Pulse Rate 106 H 108 H 106 H Respiratory Rate 38 H 32 H Blood Pressure 145/70 H 122/59 L Pulse Oximetry 93 L 07/07/18 20:16 07/07/18 20:34 07/07/18 21:00 Temperature Pulse Rate 103 H 109 H 109 H Respiratory Rate 28 H 30 H Blood Pressure 121/54 L Pulse Oximetry 93 L 92 L 07/07/18 22:00 07/07/18 23:00 07/07/18 23:01 Temperature 97.9 F Pulse Rate 108 H 104 H Respiratory Rate 24 30 H Blood Pressure 128/60 Pulse Oximetry 95 07/08/18 00:00 07/08/18 00:16 07/08/18 01:00 Temperature Pulse Rate 104 H 100 H Respiratory Rate 24 Blood Pressure Pulse Oximetry 07/08/18 02:00 07/08/18 03:00 07/08/18 03:54 Temperature 97.9 F Pulse Rate 90 108 H 62 Respiratory Rate 31 H 24 Blood Pressure 128/61 Pulse Oximetry 94 L 07/08/18 04:00 07/08/18 05:00 07/08/18 06:00 Temperature Pulse Rate 100 H 100 H 102 H Respiratory Rate Blood Pressure Pulse Oximetry Intake & Output 07/07/18 07/08/18 07/08/18 18:59 06:59 18:59 Intake Total 750 / 750 510 / 510 Output Total 675 / 675 1275 / 1275 Balance 75 / 75 -765 / -765 Weight 93 kg Intake: IV 600 / 600 Azithromycin Inj 500 MG In NS 250 / 250 Inj 250 ML @ 250 mls/hr IV.SIG Q24H [facility] Rx#:[id number] Vancomycin Inj 1,000 MG In NS 250 / 250 Inj 250 ML @ 250 mls/hr IV.SIG [employer]NALYST [facility] Rx#:[id number] Rocephin Inj 1,000 MG In NS Inj 100 / 100 100 ML @ 200 mls/hr IV.SIG Q24H [facility] Rx#:[id number] Oral 150 / 150 510 / 510 Output: Urine 675 / 675 1275 / 1275 Stool 0 / 0 Other: # Voids 2 # Incontinent Voids 1 Date of Last Bowel Movement 07/07/18 07/07/18 # Bowel Movements 1 1 heart reg. tele pm spikes lung good air entry teresa abd s/nt ext trace edema Results - Labs CBC & Chem 7: 07/07/18 09:30 07/08/18 04:27 Laboratory Results - last 24 hr 07/07/18 07/07/18 07/07/18 09:30 09:30 11:24 WBC 15.6 H RBC 3.31 L Hgb 9.7 L Hct 29.7 L MCV 89.7 MCH 29.4 MCHC 32.8 RDW 15.4 Plt Count 390 MPV 9.9 Prelim Diff (Auto) Slide review pending Neut % (Auto) 46.1 Lymph % (Auto) 39.6 [place] % (Auto) 11.2 H Eos % (Auto) 1.8 Baso % (Auto) 1.3 Neut # (Auto) 7.2 Lymph # (Auto) 6.2 H [place] # (Auto) 1.7 H Eos # (Auto) 0.3 Baso # (Auto) 0.2 WBC Differential Manual diff final Seg Neuts % (Manual) 55 Band Neuts % (Manual) 1 Lymphocytes % (Manual) 36 Monocytes % (Manual) 6 Eosinophils % (Manual) 2 Abs Neuts (Manual) 8.7 H Differential Comment . Platelet Estimate Normal Platelet Morphology Normal Sodium 135 L Potassium 3.9 Chloride 100 Carbon Dioxide 21.5 Anion Gap 14 BUN 107 H Creatinine 2.37 H Estimated GFR 27 L POC Glucose 159 H Random Glucose 156 H Calcium 9.4 Ferritin 07/07/18 07/07/18 07/08/18 18:52 23:30 04:27 WBC RBC Hgb Hct MCV MCH MCHC RDW Plt Count MPV Prelim Diff (Auto) Neut % (Auto) Lymph % (Auto) [place] % (Auto) Eos % (Auto) Baso % (Auto) Neut # (Auto) Lymph # (Auto) [place] # (Auto) Eos # (Auto) Baso # (Auto) WBC Differential Seg Neuts % (Manual) Band Neuts % (Manual) Lymphocytes % (Manual) Monocytes % (Manual) Eosinophils % (Manual) Abs Neuts (Manual) Differential Comment Platelet Estimate Platelet Morphology Sodium 132 L Potassium 4.8 D Chloride 98 Carbon Dioxide 17.9 L Anion Gap 16 H BUN 113 H Creatinine 2.77 H Estimated GFR 23 L POC Glucose 150 H 244 H Random Glucose 209 H Calcium 9.6 Ferritin 183 - Imaging Impressions Chest X-Ray 07/07/18 00:00 CONCLUSION: New left subclavian bipolar pacer in good position. No evidence of pneumothorax. Pulmonary vessel congestion and pleural effusions remain. Assessment and Plan - Assessment (1) CHB (complete heart block) Code(s): I44.2 - Atrioventricular block, complete Status: Acute Plan: 1. CHB. junctional escape. ppm placed 07/07 2. CHF. preserved LVF. decompensated 3. SO 4. FEVER/Leukocytosis. pulmonary infiltrates. 5. Diabetes 6. HTN -iv diuresis increased on 07/07 to lasix 80mg AM and 40mg PM...pt's bun/cr rising. will hold this AM lasix and allow renal to evaluate. defer diuretics to Dr Acevedo. - monitor bmp. -cont abx rocephin/azithro per ID possible pna. -cont current bp medication -cont levemir/ssi novolog -PT daily. -wean oxygen. addendum: discussed with cardiology Dr Santillan. Pt was more sob on his evaluation and concern for ongoing pulmonary edema. Thinks pt need more volume offloading. Discussed with Dr Acevedo and he will see pt in next hour to weigh in on diuretics. Will reimage his chest as initial imaging studies suggested some infiltrates as well. (2) CHF (congestive heart failure) Code(s): I50.9 - Heart failure, unspecified Status: Acute (3) Fever Code(s): R50.9 - Fever, unspecified Status: Acute (4) Acute kidney injury Code(s): N17.9 - Acute kidney failure, unspecified Status: Acute
[2018-07-08] MEDS: Calcium Acetate 667 MG Capsule PO SCH ×3 (08:48→17:21)
[2018-07-08] MEDS: Sodium Bicarbonate 650 MG Tablet PO SCH ×2 (08:48→21:27)
[2018-07-08] MEDS: Senna/Docusate Sodium 8.6/50 MG Tablet PO SCH ×2 (08:48→21:27)
[2018-07-08] MEDS: Heparin - SQ 10,000 UNITS/ML Vial SQ SCH ×2 (08:49→21:27)
[2018-07-08] MEDS: Insulin NovoLIN Regular Correctional Sugar Inj SQ SCH ×4 (08:49→21:35)
[2018-07-08] MEDS: Calcitriol 0.25 MCG Capsule PO SCH (08:49)
[2018-07-08] MEDS: Insulin Detemir Inj 1,000 UNIT/10 ML Vial SQ SCH ×2 (08:50→21:35)
[2018-07-08] MEDS: Azithromycin Inj 500 MG in Sodium Chlor 0.9% Inj 250 ML IV.SIG SCH (09:45)
--- NOTE | 2018-07-08 09:50 | P.PNNP ---
Subjective Interval history: Sitting up in bed, pacemaker placement yesterday. Creatinine elevated at 2.77 from 2.37. Shortness of breath on exertion. Continues to have edema but improving. <ShaniakrishnaZuleika - Last Filed: 07/08/18 09:44> Physical Exam Vital signs: Vital Signs 07/07/18 10:00 07/07/18 11:00 07/07/18 11:18 Temperature 97.7 F Pulse Rate 62 64 67 Respiratory Rate 30 H Blood Pressure 159/70 H Pulse Oximetry 94 L 07/07/18 12:00 07/07/18 13:24 07/07/18 14:00 Temperature Pulse Rate 59 L 66 60 Respiratory Rate Blood Pressure Pulse Oximetry 07/07/18 17:22 07/07/18 17:25 07/07/18 17:30 Temperature 98 F Pulse Rate 97 H 100 H Respiratory Rate 24 26 H Blood Pressure 163/76 H 156/72 H Pulse Oximetry 93 L 92 L 92 L 07/07/18 17:45 07/07/18 18:00 07/07/18 18:15 Temperature Pulse Rate 100 H 101 H 100 H Respiratory Rate 25 H 26 H 24 Blood Pressure 148/76 H 152/78 H 148/78 H Pulse Oximetry 93 L 93 L 94 L 07/07/18 19:00 07/07/18 19:06 07/07/18 19:16 Temperature 98.4 F Pulse Rate 109 H 106 H 108 H Respiratory Rate 31 H 38 H 32 H Blood Pressure 132/60 145/70 H 122/59 L Pulse Oximetry 94 L 93 L 07/07/18 20:00 07/07/18 20:16 07/07/18 20:34 Temperature Pulse Rate 106 H 103 H 109 H Respiratory Rate 28 H 30 H Blood Pressure 121/54 L Pulse Oximetry 93 L 92 L 07/07/18 21:00 07/07/18 22:00 07/07/18 23:00 Temperature 97.9 F Pulse Rate 109 H 108 H 104 H Respiratory Rate 24 Blood Pressure 128/60 Pulse Oximetry 95 07/07/18 23:01 07/08/18 00:00 07/08/18 00:16 Temperature Pulse Rate 104 H Respiratory Rate 30 H 24 Blood Pressure Pulse Oximetry 07/08/18 01:00 07/08/18 02:00 09/21/18 03:00 Temperature 97.9 F Pulse Rate 100 H 90 108 H Respiratory Rate 31 H Blood Pressure 128/61 Pulse Oximetry 94 L 07/08/18 03:54 07/08/18 04:00 07/08/18 05:00 Temperature Pulse Rate 62 100 H 100 H Respiratory Rate 24 Blood Pressure Pulse Oximetry 07/08/18 06:00 07/08/18 07:00 Temperature 98.0 F Pulse Rate 102 H 100 H Respiratory Rate 16 Blood Pressure 141/67 H Pulse Oximetry 95 Intake & Output 07/07/18 07/08/18 07/08/18 18:59 06:59 18:59 Intake Total 750 / 750 510 / 510 Output Total 675 / 675 1275 / 1275 Balance 75 / 75 -765 / -765 Weight 93 kg Intake: IV 600 / 600 Azithromycin Inj 500 MG In NS 250 / 250 Inj 250 ML @ 250 mls/hr IV.SIG Q24H [facility] Rx#:[id number] Vancomycin Inj 1,000 MG In NS 250 / 250 Inj 250 ML @ 250 mls/hr IV.SIG [employer] [facility] Rx#:[id number] Rocephin Inj 1,000 MG In NS Inj 100 / 100 100 ML @ 200 mls/hr IV.SIG Q24H [facility] Rx#:[id number] Oral 150 / 150 510 / 510 Output: Urine 675 / 675 1275 / 1275 Stool 0 / 0 Other: # Voids 2 # Incontinent Voids 1 Date of Last Bowel Movement 07/07/18 07/07/18 # Bowel Movements 1 1 Narrative: GENERAL: AOx3, sitting up in chair. SKIN: Warm and dry. Pacemaker with dressing on right chest wall. Sling. HEAD: Atraumatic. Normocephalic. EYES: Pupils equal and round. No scleral icterus. No injection or drainage. ENT: No nasal bleeding or discharge. Mucous membranes pink and moist. NECK: Trachea midline. No JVD. CARDIOVASCULAR: Regular rate and rhythm. No murmurs appreciated. 2+ edema bilateral LE up to knees, improving. RESPIRATORY: No accessory muscle use. Clear to auscultation. Breath sounds equal bilaterally. NEUROLOGICAL: Awake and alert. No obvious cranial nerve deficits. Normal speech. PSYCHIATRIC: Appropriate mood and affect; insight and judgment normal. <Zuleika Vasquez - Last Filed: 07/08/18 09:44> Vital signs: Vital Signs 07/10/18 20:00 07/10/18 21:12 07/10/18 22:00 Temperature Pulse Rate 97 H 98 H 95 H Respiratory Rate Blood Pressure Pulse Oximetry 07/10/18 23:00 07/11/18 00:00 07/11/18 00:56 Temperature 98.4 F Pulse Rate 95 H 60 100 H Respiratory Rate 24 Blood Pressure 135/62 Pulse Oximetry 96 07/11/18 02:00 07/11/18 02:51 07/11/18 03:00 Temperature 98.4 F Pulse Rate 93 H 87 90 Respiratory Rate 24 Blood Pressure 120/57 L Pulse Oximetry 97 07/11/18 04:00 07/11/18 05:00 07/11/18 06:00 Temperature Pulse Rate 73 82 82 Respiratory Rate Blood Pressure Pulse Oximetry 07/11/18 07:00 07/11/18 08:00 07/11/18 08:55 Temperature 98.2 F 98.4 F Pulse Rate 85 86 100 H Respiratory Rate 17 18 Blood Pressure 129/63 146/66 H Pulse Oximetry 97 93 L 07/11/18 09:55 07/11/18 10:10 07/11/18 11:00 Temperature 98.2 F 98.3 F Pulse Rate 99 H 97 H 95 H Respiratory Rate 18 18 15 Blood Pressure 135/71 145/73 H 136/65 Pulse Oximetry 93 L 94 L 100 07/11/18 13:00 07/11/18 14:00 07/11/18 15:00 Temperature 98.5 F Pulse Rate 103 H 99 H 97 H Respiratory Rate 16 Blood Pressure 138/75 Pulse Oximetry 95 07/11/18 16:00 07/11/18 17:00 07/11/18 18:00 Temperature Pulse Rate 101 H 99 H 98 H Respiratory Rate Blood Pressure Pulse Oximetry Intake & Output 07/11/18 07/11/18 07/12/18 06:59 18:59 06:59 Intake Total 1200 / 1200 Output Total 1800 / 1800 Balance -600 / -600 Weight 89 kg Intake: Oral 1200 / 1200 Output: Urine 1800 / 1800 Other: Date of Last Bowel Movement 07/09/18 <Larry Acevedo - Last Filed: 07/11/18 19:12> Assessment and Plan - Assessment (1) Acute kidney injury Code(s): N17.9 - Acute kidney failure, unspecified Status: Acute Plan: Acute kidney injury with creatinine of 2.60 on day of consult. SO possibly ATN from decreased cardiac output/ third spacing/ infection History of chronic kidney disease with mild proteinuria possibly from diabetic or hypertensive renal disease. Baseline creatinine not available but creatinine noted to be 1.20 April 2011 Renal ultrasound with no evidence of stone, masses or hydronephrosis Plan Monitor strict I+O Creatinine has increased at 2.77 from 2.37. Will continue metolazone, Lasix changed to Bumex BID, continues to have edema and shortness of breath. Continue PhosLo, calcitriol, and sodium bicarbonate Avoid nephrotoxins including IV contrast and aminoglycosides. Plan for pacemaker placement today Labs are pending today. (2) Anemia Code(s): D64.9 - Anemia, unspecified Status: Acute Plan: Hemoglobin stable Most likely from chronic disease (3) Complete heart block by electrocardiogram Code(s): I44.2 - Atrioventricular block, complete Status: Acute Plan: Pacemaker placement on 07/07 (4) Sepsis Code(s): A41.9 - Sepsis, unspecified organism Status: Acute Plan: ID consulted and cultures negative thus far On antibiotics for possible pneumonia <Zuleika Vasquez - Last Filed: 07/08/18 09:44> - Assessment (1) Acute kidney injury Code(s): N17.9 - Acute kidney failure, unspecified Status: Acute Plan: Patient seen and examined, agree with above. Change ot Bumex, try to jeep in negative fluid balance. Follow the urine out out and BMP. (2) Anemia Code(s): D64.9 - Anemia, unspecified Status: Acute (3) Complete heart block by electrocardiogram Code(s): I44.2 - Atrioventricular block, complete Status: Acute (4) Sepsis Code(s): A41.9 - Sepsis, unspecified organism Status: Acute <Larry Acevedo - Last Filed: 07/11/18 19:12>
[2018-07-08] MEDS: metOLazone 5 MG Tablet PO SCH ×2 (11:13→17:24)
--- NOTE | 2018-07-08 13:13 | P.PNID ---
Subjective Remarks: Patient is sitting upright in bed. Reports that his breathing is better. Slept laying flat last night. Ambulated hallway but noted he had to stop a couple of times due to HINES. Cough improved. No fever. Receiving diuretics. Denies chills. Denies chest pain. Blood cultures no growth. Post pacemaker. 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 72-year-old white male who has a history of aortic valve replacement in 2010. The patient presented to the [facility] in [place] and was felt to be in complete heart block. He was transferred to [facility] for further evaluation. The patient was noted to have fever with temperature of 102 degrees yesterday and white count was elevated at 21.9. The patient notes that he has had a head cold with coughing, which began 2 weeks ago. He notes that he was having pain behind the eyes and the cough was not improving. He took cough medications, but he continued with the cough. He has had no sputum production. He notes having shaking chills before he went to the [facility] for evaluation from the [facility]. Past Medical History: PAST MEDICAL HISTORY: Diabetes mellitus, hypertension, hyperlipidemia, coronary artery disease, chronic heart failure, chronic kidney disease stage III, history of aortic valve replacement in 2010. Bilateral hip replacement Oct and March 2018. Splenectomy. Allergies/Adverse Reactions: Allergies Fovzuzm-Gne-Cll Reductase Inhibitor Allergy (Severe, Verified 04/12/18 05:50) muscle weakness atorvastatin Allergy (Mild, Verified 04/12/18 05:50) Objective Vital Signs 07/07/18 13:24 07/07/18 14:00 07/07/18 17:22 Temperature 98 F Pulse Rate 66 60 97 H Respiratory Rate 24 Blood Pressure 163/76 H Pulse Oximetry 93 L 07/07/18 17:25 07/07/18 17:30 07/07/18 17:45 Temperature Pulse Rate 100 H 100 H Respiratory Rate 26 H 25 H Blood Pressure 156/72 H 148/76 H Pulse Oximetry 92 L 92 L 93 L 07/07/18 18:00 07/07/18 18:15 07/07/18 19:00 Temperature 98.4 F Pulse Rate 101 H 100 H 109 H Respiratory Rate 26 H 24 31 H Blood Pressure 152/78 H 148/78 H 132/60 Pulse Oximetry 93 L 94 L 94 L 07/07/18 19:06 07/07/18 19:16 07/07/18 20:00 Temperature Pulse Rate 106 H 108 H 106 H Respiratory Rate 38 H 32 H Blood Pressure 145/70 H 122/59 L Pulse Oximetry 93 L 07/07/18 20:16 07/07/18 20:34 07/07/18 21:00 Temperature Pulse Rate 103 H 109 H 109 H Respiratory Rate 28 H 30 H Blood Pressure 121/54 L Pulse Oximetry 93 L 92 L 07/07/18 22:00 07/07/18 23:00 07/07/18 23:01 Temperature 97.9 F Pulse Rate 108 H 104 H Respiratory Rate 24 30 H Blood Pressure 128/60 Pulse Oximetry 95 07/08/18 00:00 07/08/18 00:16 07/08/18 01:00 Temperature Pulse Rate 104 H 100 H Respiratory Rate 24 Blood Pressure Pulse Oximetry 07/08/18 02:00 07/08/18 03:00 07/08/18 03:54 Temperature 97.9 F Pulse Rate 90 108 H 62 Respiratory Rate 31 H 24 Blood Pressure 128/61 Pulse Oximetry 94 L 07/08/18 04:00 07/08/18 05:00 07/08/18 06:00 Temperature Pulse Rate 100 H 100 H 102 H Respiratory Rate Blood Pressure Pulse Oximetry 07/08/18 07:00 07/08/18 08:00 07/08/18 09:00 Temperature 98.0 F 98.5 F Pulse Rate 100 H 100 H 97 H Respiratory Rate 16 16 Blood Pressure 141/67 H 141/67 H Pulse Oximetry 95 95 07/08/18 10:00 Temperature Pulse Rate 99 H Respiratory Rate Blood Pressure Pulse Oximetry Intake & Output 07/07/18 07/08/18 07/08/18 18:59 06:59 18:59 Intake Total 750 / 750 510 / 510 Output Total 675 / 675 1275 / 1275 Balance 75 / 75 -765 / -765 Weight 93 kg Intake: IV 600 / 600 Azithromycin Inj 500 MG In NS 250 / 250 Inj 250 ML @ 250 mls/hr IV.SIG Q24H [facility] Rx#:[id number] Vancomycin Inj 1,000 MG In NS 250 / 250 Inj 250 ML @ 250 mls/hr IV.SIG [employer] [facility] Rx#:[id number] Rocephin Inj 1,000 MG In NS Inj 100 / 100 100 ML @ 200 mls/hr IV.SIG Q24H [facility] Rx#:[id number] Oral 150 / 150 510 / 510 Output: Urine 675 / 675 1275 / 1275 Stool 0 / 0 Other: # Voids 2 # Incontinent Voids 1 Date of Last Bowel Movement 07/07/18 07/07/18 # Bowel Movements 1 1 06/30/18 09:55 Blood - Peripheral Aerobic Blood Culture - Final No growth in 5 days 06/30/18 09:55 Blood - Peripheral Anaerobic Blood Culture - Final No growth in 5 days 06/30/18 09:50 Blood - Peripheral Aerobic Blood Culture - Final No growth in 5 days 06/30/18 09:50 Blood - Peripheral Anaerobic Blood Culture - Final No growth in 5 days Lab - Hematology Results 07/07/18 09:30 WBC 15.6 H RBC 3.31 L Hgb 9.7 L Hct 29.7 L MCV 89.7 MCH 29.4 MCHC 32.8 RDW 15.4 Plt Count 390 MPV 9.9 Prelim Diff (Auto) Slide review pending Neut % (Auto) 46.1 Lymph % (Auto) 39.6 Benson % (Auto) 11.2 H Eos % (Auto) 1.8 Baso % (Auto) 1.3 Neut # (Auto) 7.2 Lymph # (Auto) 6.2 H Benson # (Auto) 1.7 H Eos # (Auto) 0.3 Baso # (Auto) 0.2 WBC Differential Manual diff final Seg Neuts % (Manual) 55 Band Neuts % (Manual) 1 Lymphocytes % (Manual) 36 Monocytes % (Manual) 6 Eosinophils % (Manual) 2 Abs Neuts (Manual) 8.7 H Differential Comment . Platelet Estimate Normal Platelet Morphology Normal Lab - Chemistry Results 07/06/18 07/06/18 07/07/18 16:39 20:04 07:46 Sodium Potassium Chloride Carbon Dioxide Anion Gap BUN Creatinine Estimated GFR POC Glucose 207 H 203 H 147 H Random Glucose Calcium Ferritin 07/07/18 07/07/18 07/07/18 09:30 11:24 18:52 Sodium 135 L Potassium 3.9 Chloride 100 Carbon Dioxide 21.5 Anion Gap 14 BUN 107 H Creatinine 2.37 H Estimated GFR 27 L POC Glucose 159 H 150 H Random Glucose 156 H Calcium 9.4 Ferritin 07/07/18 07/08/18 07/08/18 23:30 04:27 11:06 Sodium 132 L Potassium 4.8 D Chloride 98 Carbon Dioxide 17.9 L Anion Gap 16 H BUN 113 H Creatinine 2.77 H Estimated GFR 23 L POC Glucose 244 H 297 H Random Glucose 209 H Calcium 9.6 Ferritin 183 Imaging: ITS Impressions Abdomen/Bladder Ultrasound 06/30/18 00:00 CONCLUSION: No evidence of hydronephrosis. Chest CT 06/30/18 00:00 CONCLUSION: 1. Findings probably on the basis of mild failure with patchy consolidation of both lungs and mild thickening of the interlobular septa as well as small right and tiny left pleural effusions. 2. Right lower lobe consolidation likely compressive/dependent atelectasis. 3. Previous median sternotomy and aortic valve replacement. Nonunion of the manubrial defect. 4. Coronary artery calcification. 5. A few scattered nonspecific upper limits of normal size mediastinal lymph nodes. Venous Doppler Study 06/30/18 00:00 CONCLUSION: 1. The study is negative for bilateral lower extremity deep venous thrombosis. Chest X-Ray 07/07/18 00:00 CONCLUSION: New left subclavian bipolar pacer in good position. No evidence of pneumothorax. Pulmonary vessel congestion and pleural effusions remain. Physical Exam: PHYSICAL EXAMINATION: GENERAL: Awake and alert and oriented. HEENT: Head is atraumatic. Extraocular movements grossly intact. Pupils reactive to light. No icterus. No conjunctival erythema. Oropharynx: Moist mucosa. No visible lesions. No thrush. NECK: Supple without adenopathy. LUNGS: Decreased breath sounds. HEART: Normal S1 and S2. No audible murmur. No rubs or gallops. ABDOMEN: Bowel sounds present. Soft, no tenderness appreciated. EXTREMITIES: No clubbing, cyanosis or 2+ edema. SKIN: No rash. NEUROLOGIC: Non focal. PSYCHIATRIC: Calm and cooperative. Assessment and Plan - Plan IMPRESSION: Fever and leukocytosis. Temp improved. WBC remain elevated. May be chronic. Nonproductive cough. Interstitial infiltrates on chest x-ray. Possible atypical pneumonia versus viral etiology vs CHF. Mycoplasma IgG is positive indicating infection some time in past. Complete heart block. Aortic valve replacement status. Stable from ID standpoint. RECOMMENDATIONS: 1. Stop ceftriaxone intravenous. 2. Continue Azithromycin. If discharged x 7 days more. 2. Follow white blood cell count. I will be off this weekend. Please call ID supervisor [employer] if further input is needed.
--- NOTE | 2018-07-08 16:35 | MP ---
cc: Varun Santillan DO DATE OF OPERATION: 07/07/2018 DATE OF PROCEDURE: Dual-chamber permanent pacemaker implantation, Medtronic Rentz XT DR MRI compatible. SURGEON: Varun Santillan DO PREOPERATIVE DIAGNOSIS: Complete heart block. POSTOPERATIVE DIAGNOSIS: Successful implantation of a dual-chamber permanent pacemaker via the left upper chest wall with subcutaneous pocket generator placement. ANESTHESIA: General anesthesia and local combination. Approximately 20 mL of 2% lidocaine and bupivacaine in a 50:50 mixture were used for local anesthetic. PROCEDURES PERFORMED: 1. Implantation of pacemaker generator, Medtronic Rentz XT DR MRI, model number W1DR01, serial [id number]. 2. Implantation of right atrial pacing lead Medtronic, model number 453434, serial number [id number] in the right atrial appendage. 3. Implantation of right ventricular pacing lead Medtronic, model number 698263, serial number [id number] in the RV septum. 4. Formation of pulse generator pocket in the subcutaneous tissue of the left upper chest wall. ESTIMATED BLOOD LOSS: Less than 20 mL DYE LOAD: None. ANTIBIOTICS: 1 gram of Ancef intravenously. INDICATIONS: The patient has already been actively treated with 1 gram ceftriaxone daily for the preceding 5 days per infectious disease due to chronic leukocytosis, which is currently being evaluated by hematology and is suspected as leukemoid reaction. There was also use of vancomycin in an irrigation solution during the procedure. INFORMED CONSENT: Prior to the procedure, the risks, benefits and alternatives of the procedure were discussed with the patient in detail, who agrees to proceed with the procedure. Risks including, but not limited to, bleeding, hematoma, infection, pneumothorax, endocarditis, lead dislodgement, arrhythmia, perforation of cardiac chamber, and were discussed with the patient, who agreed to proceed with the procedure. PROCEDURE IN DETAIL: After informed consent was obtained, the patient was brought to the [facility] in a postabsorptive state. The patient's left chest wall was prepped and draped in the usual sterile fashion. A timeout was taken in order to verify the patient, procedure, preprocedure labs. Using a #15 blade, a small horizontal incision was made 2 cm inferior to the left clavicle, followed by a combination of sharp and blunt dissection and electrocautery for pocket formation. Using a micropuncture finder needle under fluoroscopic guidance, the left subclavian vein was cannulated and a micropuncture wire was advanced into the venous system with right-sided venous system verified with the tip of the wire able to go into the inferior vena cava under fluoroscopic guidance and the wire was pulled back. The wire was upgraded to a standard J-tip guidewire, and a second wire was placed into the venous system using the same technique. An appropriate size SafeSheath introducer was then used to place the right ventricular lead at the level of the right atrium. Using a combination of straight, curved and mons stylets, the right ventricular lead was placed at the level of the lower mid RV septum. The lead was actively fixated, tested and found to be satisfactory and sutured to the pectoralis muscle to prevent migration with nonabsorbable Ethibond 2-0 suture x2 sutures over a suture sleeve. The appropriate size sheath and introducer were then used to place the right atrial lead to the level of the right atrium and the introducer was removed. The introducer was exchanged for a J-tipped stylet. The J-tipped stylet was placed to appropriately position the right atrial lead into the appendage. The lead was actively fixated, tested and found to be satisfactory and sutured into the pectoralis muscle to prevent migration with nonabsorbable Ethibond suture x3 sutures over a suture sleeve. The pulse generator was then connected to the leads. The pocket was then irrigated with copious amounts of antibiotic-containing saline solution. The device was placed into the pocket with excess leads being placed posterior to the device in the pocket. The device was sutured to the pectoralis muscle through the suture hole in the header of the device to prevent migration with nonabsorbable Ethibond 2-0 suture. The pocket was then closed with 3 interrupted layers of 3-0 Vicryl through the subcutaneous tissue, followed by 2 running layers of 3-0 Vicryl through the subcutaneous tissue, closed with 2 interrupted layers of 3-0 Vicryl through the subcutaneous tissue, followed by the skin being closed with 4-0 Monocryl with the knots being tied on either end external to the incision. Steri-Strips, Telfa pad and Tegaderm were subsequently applied. The patient tolerated the procedure well with no apparent complications. The patient will be transferred to the PACU for post-procedural monitoring prior to being transferred to the telemetry floor for continued management with the primary team. MEASURED DATA: 1. The right atrial lead measures 3.3 millivolt P-wave, 1 volt threshold at 0.5 milliseconds pulse width, 573 ohms impedance. The right ventricular lead measures 12.9 millivolt R-wave, 0.9 volts threshold at 0.5 milliseconds pulse width, 762 ohms impedance. The device was programmed DDDR with LRL 60 BPM and upper tracking rate 130 BPM. DO TALI Toth/ct , 03:25 PM , 03:38 PM
[2018-07-09 05:04] LABS: Hematocrit 27.4 % (39.0-51.0); Hemoglobin 8.9 gm/dL (13.0-17.0); Mean Corpuscular HGB Conc 32.4 % (32.0-36.0); Mean Corpuscular Hemoglobin 29.3 pg (27.0-34.0); Mean Corpuscular Volume 90.4 fL (80.0-100.0); Mean Platelet Volume 9.4 fL (7.0-11.0); Platelet Count 415 th/mm3 (150-450); Red Blood Count 3.03 mil/mm3 (4.50-5.90); Red Cell Distribution Width 15.4 % (11.6-17.2); White Blood Count 15.8 th/mm3 (4.0-11.0)
[2018-07-09 05:38] LABS: Albumin 2.7 g/dL (3.4-5.0); Calcium 9.5 mg/dL (8.5-10.1); Carbon Dioxide 25.4 meq/L (21.0-32.0); Potassium 3.3 meq/L (3.5-5.1)
[2018-07-09 07:56] LABS: Lymphocytes 34 % (9-44); Monocytes 9 % (0-8)
[2018-07-09 07:57] LABS: Platelet Estimate Normal (Normal); Platelet Morphology Normal (Normal)
[2018-07-09] MEDS: Insulin NovoLIN Regular Correctional Sugar Inj SQ SCH ×4 (10:10→20:51)
[2018-07-09] MEDS: Azithromycin 250 MG Tablet PO SCH (10:12)
[2018-07-09] MEDS: Calcitriol 0.25 MCG Capsule PO SCH (10:13)
[2018-07-09] MEDS: Calcium Acetate 667 MG Capsule PO SCH ×3 (10:13→17:09)
[2018-07-09] MEDS: Senna/Docusate Sodium 8.6/50 MG Tablet PO SCH ×2 (10:13→20:51)
[2018-07-09] MEDS: Heparin - SQ 10,000 UNITS/ML Vial SQ SCH ×2 (10:14→20:50)
[2018-07-09] MEDS: Sodium Bicarbonate 650 MG Tablet PO SCH ×2 (10:14→20:50)
[2018-07-09] MEDS: Insulin Detemir Inj 1,000 UNIT/10 ML Vial SQ SCH ×2 (10:17→20:52)
--- NOTE | 2018-07-09 10:23 | P.PNIM ---
Subjective Interval history: pt says he feels much better sitting in chair Physical Exam Vital signs: Vital Signs 07/08/18 11:00 07/08/18 12:00 07/08/18 13:00 Temperature 98.7 F 98.1 F Pulse Rate 101 H 101 H 100 H Respiratory Rate 15 17 Blood Pressure 135/64 135/64 Pulse Oximetry 95 94 L 07/08/18 14:00 07/08/18 15:00 07/08/18 16:00 Temperature 98.0 F 98.7 F Pulse Rate 103 H 108 H 108 H Respiratory Rate 17 17 Blood Pressure 138/68 138/68 Pulse Oximetry 92 L 92 L 07/08/18 17:00 07/08/18 18:00 07/08/18 18:04 Temperature Pulse Rate 99 H 99 H Respiratory Rate Blood Pressure Pulse Oximetry 92 L 07/08/18 19:00 07/08/18 20:00 07/08/18 21:00 Temperature 98 F Pulse Rate 98 H 97 H 98 H Respiratory Rate 16 Blood Pressure 136/63 Pulse Oximetry 94 L 07/08/18 22:00 07/08/18 23:00 07/08/18 23:49 Temperature 97.8 F Pulse Rate 97 H 100 H 99 H Respiratory Rate 16 Blood Pressure 134/72 Pulse Oximetry 93 L 07/09/18 01:00 07/09/18 02:00 07/09/18 03:00 Temperature 98.4 F Pulse Rate 96 H 101 H 109 H Respiratory Rate 16 Blood Pressure 137/65 Pulse Oximetry 94 L 07/09/18 04:00 07/09/18 05:00 07/09/18 05:51 Temperature Pulse Rate 96 H 97 H 96 H Respiratory Rate Blood Pressure Pulse Oximetry 07/09/18 08:37 Temperature Pulse Rate Respiratory Rate Blood Pressure Pulse Oximetry 93 L Intake & Output 07/08/18 07/09/18 07/09/18 18:59 06:59 18:59 Intake Total 350 / 350 720 / 720 Output Total 1700 / 1700 Balance 350 / 350 -980 / -980 Weight 89.7 kg Intake: IV 350 / 350 Azithromycin Inj 500 MG In NS 250 / 250 Inj 250 ML @ 250 mls/hr IV.SIG Q24H [facility] Rx#:[id number] Rocephin Inj 1,000 MG In NS Inj 100 / 100 100 ML @ 200 mls/hr IV.SIG Q24H [facility] Rx#:[id number] Oral 720 / 720 Output: Urine 1700 / 1700 heart reg lung course bs abd s/nt ext trace edema Results - Labs CBC & Chem 7: 07/09/18 03:38 07/09/18 03:38 Laboratory Results - last 24 hr 07/08/18 07/08/18 07/08/18 11:06 16:48 19:47 WBC RBC Hgb Hct MCV MCH MCHC RDW Plt Count MPV Prelim Diff (Auto) WBC Differential Seg Neuts % (Manual) Lymphocytes % (Manual) Monocytes % (Manual) Basophils % (Manual) Abs Neuts (Manual) Differential Comment Platelet Estimate Platelet Morphology Sodium Potassium Chloride Carbon Dioxide Anion Gap BUN Creatinine Estimated GFR POC Glucose 297 H 210 H 175 H Random Glucose Calcium Phosphorus Albumin 07/09/18 07/09/18 07/09/18 03:38 03:38 10:08 WBC 15.8 H RBC 3.03 L Hgb 8.9 L Hct 27.4 L MCV 90.4 MCH 29.3 MCHC 32.4 RDW 15.4 Plt Count 415 MPV 9.4 Prelim Diff (Auto) Manual diff required WBC Differential Manual diff final Seg Neuts % (Manual) 55 Lymphocytes % (Manual) 34 Monocytes % (Manual) 9 H Basophils % (Manual) 2 Abs Neuts (Manual) 8.7 H Differential Comment . Platelet Estimate Normal Platelet Morphology Normal Sodium 138 Potassium 3.3 L D Chloride 98 Carbon Dioxide 25.4 Anion Gap 15 BUN 109 H Creatinine 2.75 H Estimated GFR 23 L POC Glucose 173 H Random Glucose 83 D Calcium 9.5 Phosphorus 5.0 H Albumin 2.7 L Assessment and Plan - Assessment (1) CHB (complete heart block) Code(s): I44.2 - Atrioventricular block, complete Status: Acute Plan: 1. CHB. junctional escape. ppm placed 07/07 2. CHF. preserved LVF. decompensated 3. SO 4. FEVER/Leukocytosis. pulmonary infiltrates. 5. Diabetes 6. HTN -iv diuresis increased on 07/07 to lasix 80mg AM and 40mg PM...pt's bun/cr rising. will hold this AM lasix and allow renal to evaluate. defer diuretics to Dr Acevedo. - monitor bmp. -cont abx rocephin/azithro per ID possible pna. rocephin stopped 07/08 -cont current bp medication -cont levemir/ssi novolog -PT daily. -wean oxygen. addendum: discussed with cardiology Dr Santillan and Dr Acevedo on 07/08 Pt lasix changed to bumex and today diuresing more and feeling better. cr stable. awaiting CT chest to reevaluate infiltrates. nursing reports pt now on room air. (2) CHF (congestive heart failure) Code(s): I50.9 - Heart failure, unspecified Status: Acute (3) Fever Code(s): R50.9 - Fever, unspecified Status: Acute (4) Acute kidney injury Code(s): N17.9 - Acute kidney failure, unspecified Status: Acute
[2018-07-09] MEDS: metOLazone 5 MG Tablet PO SCH ×2 (10:24→17:14)
--- NOTE | 2018-07-09 11:08 | CT ---
EXAM DATE: 07/09/2018 10:51 AM EDT AGE/SEX: 72 years / Male INDICATIONS: Shortness of breath. CLINICAL DATA: This is the patient's initial encounter. Patient reports that signs and symptoms have been present for 1 day and indicates a pain score of 0/10. MEDICAL/SURGICAL HISTORY: Cardiovascular disease. Congestive heart failure. Diabetes. Chronic ki dney disease. Pacemaker. Aortic valve replacement. RADIATION DOSE: 17.79 CTDI (mGy) [place] [facility] [place]/30/2018. . TECHNIQUE: Multiple contiguous axial images were obtained through the chest without contrast. Image s were obtained in suspended respiration using multiple row detector helical technique. Using automa rashi exposure control and adjustment of the mA and/or kV according to patient size, radiation dose was kept as low as reasonably achievable to obtain optimal diagnostic quality images. DICOM format imag e data is available electronically for review and comparison. FINDINGS: 1. Pacemaker is implanted in the left chest. There is mild interstitial edema with moderate pleural effusion on the right and small pleural effusion on the left. The heart is enlarged without pericardi al fluid. 2. There is no axillary or mediastinal adenopathy 3. . Minimal coronary calcifications are evident 4. Upper abdominal contents unremarkable. 5. CONCLUSION: Interstitial edema with moderate pleural effusion on the right and small on the left. Electronically signed by: Huy Tomas MD 07/09/2018 11:06 AM EDT
--- NOTE | 2018-07-09 13:13 | ECG ---
Date Performed: 07/07/2018 Time Performed: 18:31:43 PTAGE: 72 years EKG: ELECTRONIC VENTRICULAR PACEMAKER ABNORMAL RHYTHM ECG PREVIOUS TRACING : 07/04/2018 09.53 Compared to previous tracing, now V-paced DOCTOR: Rich Chris Interpretating Date/Time 07/09/2018 13:12:54
--- NOTE | 2018-07-09 13:20 | P.PNNP ---
Subjective Interval history: Renal function about the same as yesterday. Non oliguric. Physical Exam Vital signs: Vital Signs 07/08/18 14:00 07/08/18 15:00 07/08/18 16:00 Temperature 98.0 F 98.7 F Pulse Rate 103 H 108 H 108 H Respiratory Rate 17 17 Blood Pressure 138/68 138/68 Pulse Oximetry 92 L 92 L 07/08/18 17:00 07/08/18 18:00 07/08/18 18:04 Temperature Pulse Rate 99 H 99 H Respiratory Rate Blood Pressure Pulse Oximetry 92 L 07/08/18 19:00 07/08/18 20:00 07/08/18 21:00 Temperature 98 F Pulse Rate 98 H 97 H 98 H Respiratory Rate 16 Blood Pressure 136/63 Pulse Oximetry 94 L 07/08/18 22:00 07/08/18 23:00 07/08/18 23:49 Temperature 97.8 F Pulse Rate 97 H 100 H 99 H Respiratory Rate 16 Blood Pressure 134/72 Pulse Oximetry 93 L 07/09/18 01:00 07/09/18 02:00 07/09/18 03:00 Temperature 98.4 F Pulse Rate 96 H 101 H 109 H Respiratory Rate 16 Blood Pressure 137/65 Pulse Oximetry 94 L 07/09/18 04:00 07/09/18 05:00 07/09/18 05:51 Temperature Pulse Rate 96 H 97 H 96 H Respiratory Rate Blood Pressure Pulse Oximetry 07/09/18 07:00 07/09/18 08:00 07/09/18 08:37 Temperature 97.5 F L Pulse Rate 100 H 99 H Respiratory Rate 24 Blood Pressure 143/69 H Pulse Oximetry 91 L 93 L 07/09/18 09:00 07/09/18 10:00 Temperature Pulse Rate 98 H 88 Respiratory Rate Blood Pressure Pulse Oximetry Intake & Output 07/08/18 07/09/18 07/09/18 18:59 06:59 18:59 Intake Total 350 / 350 720 / 720 Output Total 1700 / 1700 Balance 350 / 350 -980 / -980 Weight 89.7 kg Intake: IV 350 / 350 Azithromycin Inj 500 MG In NS 250 / 250 Inj 250 ML @ 250 mls/hr IV.SIG Q24H [facility] Rx#:[id number] Rocephin Inj 1,000 MG In NS Inj 100 / 100 100 ML @ 200 mls/hr IV.SIG Q24H [facility] Rx#:[id number] Oral 720 / 720 Output: Urine 1700 / 1700 Other: Date of Last Bowel Movement 07/08/18 Narrative: GENERAL: Well-developed well-nourished. In no acute distress. NECK: No carotid bruits. No JVD. CARDIOVASCULAR: Regular rate and rhythm. No murmur appreciated. Pacemaker in place on left chest wall with no swelling, ecchymosis, or tenderness. RESPIRATORY: No accessory muscle use. Clear to auscultation. Breath sounds equal bilaterally. MUSCULOSKELETAL: No clubbing or cyanosis. No edema. Left arm in a sling. NEUROLOGICAL: Awake and alert. Normal speech. Assessment and Plan - Assessment (1) Acute kidney injury Code(s): N17.9 - Acute kidney failure, unspecified Status: Acute Plan: Acute kidney injury with creatinine of 2.60 on day of consult. SO possibly ATN from decreased cardiac output/ third spacing/ infection History of chronic kidney disease with mild proteinuria possibly from diabetic or hypertensive renal disease. Baseline creatinine not available but creatinine noted to be 1.20 April 2011 Renal ultrasound with no evidence of stone, masses or hydronephrosis Plan Monitor strict I+O Creatinine has increased at 2.77 from 2.37. Will continue metolazone, Lasix changed to Bumex BID, continues to have edema and shortness of breath. Continue PhosLo, calcitriol, and sodium bicarbonate Avoid nephrotoxins including IV contrast and aminoglycosides. s/p pacemaker. . (2) Anemia Code(s): D64.9 - Anemia, unspecified Status: Acute Plan: Hemoglobin stable Most likely from chronic disease (3) Complete heart block by electrocardiogram Code(s): I44.2 - Atrioventricular block, complete Status: Acute Plan: Pacemaker placement on 07/07 (4) Sepsis Code(s): A41.9 - Sepsis, unspecified organism Status: Acute Plan: ID consulted and cultures negative thus far On antibiotics for possible pneumonia
--- NOTE | 2018-07-09 14:40 | ECG ---
Date Performed: 07/08/2018 Time Performed: 20:26:06 PTAGE: 72 years EKG: Sinus rhythm Demand atrial pacing IV conduction defect ANTEROLATERAL INFARCT - POSSIBLY ACUTE Inferior ST -T changes are nonspecific Low QRS voltages in limb leads Since the previous tracing, no significant change noted Abnormal ECG PREVIOUS TRACING : 07/07/2018 18.31 DOCTOR: Shakeel Roberson Interpretating Date/Time 07/09/2018 14:34:18
[2018-07-10 05:25] LABS: Calcium 9.7 mg/dL (8.5-10.1); Carbon Dioxide 26.6 meq/L (21.0-32.0); Potassium 3.4 meq/L (3.5-5.1)
--- NOTE | 2018-07-10 08:55 | P.PNNP ---
Subjective Interval history: Remains on Bumex and Metolazone. Patient's renal function is stable, improved. Needs potassium replacement. Physical Exam Vital signs: Vital Signs 07/09/18 09:00 07/09/18 10:00 07/09/18 11:00 Temperature 98.4 F Pulse Rate 98 H 88 101 H Respiratory Rate 18 Blood Pressure 134/64 Pulse Oximetry 93 L 07/09/18 12:00 07/09/18 13:00 07/09/18 14:00 Temperature Pulse Rate 98 H 95 H 96 H Respiratory Rate Blood Pressure Pulse Oximetry 07/09/18 15:00 07/09/18 16:00 07/09/18 17:00 Temperature 97.8 F Pulse Rate 71 96 H 102 H Respiratory Rate 20 Blood Pressure 130/58 L Pulse Oximetry 93 L 07/09/18 18:00 07/09/18 19:00 07/09/18 21:05 Temperature 98 F Pulse Rate 104 H 106 H 102 H Respiratory Rate 24 Blood Pressure 135/63 Pulse Oximetry 94 L 07/09/18 21:29 07/09/18 22:00 07/09/18 23:00 Temperature 97.6 F Pulse Rate 106 H 101 H Respiratory Rate 20 Blood Pressure 151/70 H Pulse Oximetry 95 95 07/10/18 00:00 07/10/18 01:00 07/10/18 01:58 Temperature Pulse Rate 104 H 104 H 101 H Respiratory Rate Blood Pressure Pulse Oximetry 07/10/18 02:52 07/10/18 03:58 07/10/18 05:00 Temperature 98 F Pulse Rate 102 H 98 H 99 H Respiratory Rate 24 Blood Pressure 143/65 H Pulse Oximetry 94 L 07/10/18 06:00 Temperature Pulse Rate 95 H Respiratory Rate Blood Pressure Pulse Oximetry Intake & Output 07/09/18 07/10/18 07/10/18 18:59 06:59 18:59 Intake Total 480 / 480 1200 / 1200 Output Total 1800 / 1800 1800 / 1800 Balance -1320 / -1320 -600 / -600 Weight 89 kg Intake: Oral 480 / 480 1200 / 1200 Output: Urine 1800 / 1800 1800 / 1800 Other: Date of Last Bowel Movement 07/04/18 07/09/18 # Bowel Movements 3 Narrative: GENERAL: Well-developed well-nourished. In no acute distress. NECK: No carotid bruits. No JVD. CARDIOVASCULAR: Regular rate and rhythm. No murmur appreciated. Pacemaker in place on left chest wall with no swelling, ecchymosis, or tenderness. RESPIRATORY: No accessory muscle use. Clear to auscultation. Breath sounds equal bilaterally. MUSCULOSKELETAL: No clubbing or cyanosis. No edema. Left arm in a sling. NEUROLOGICAL: Awake and alert. Normal speech. Assessment and Plan - Assessment (1) Acute kidney injury Code(s): N17.9 - Acute kidney failure, unspecified Status: Acute Plan: Acute kidney injury with creatinine of 2.60 on day of consult. SO possibly ATN from decreased cardiac output/ third spacing/ infection History of chronic kidney disease with mild proteinuria possibly from diabetic or hypertensive renal disease. Baseline creatinine not available but creatinine noted to be 1.20 April 2011 Renal ultrasound with no evidence of stone, masses or hydronephrosis Plan Monitor strict I+O Renal function has improved. Will continue metolazone, Lasix changed to Bumex BID, Avoid nephrotoxins including IV contrast and aminoglycosides. s/p pacemaker. No need for Sodium bicarbonate, I will stop it. . (2) Anemia Code(s): D64.9 - Anemia, unspecified Status: Acute Plan: Hemoglobin stable Most likely from chronic disease (3) Complete heart block by electrocardiogram Code(s): I44.2 - Atrioventricular block, complete Status: Acute Plan: Pacemaker placement on 07/07 (4) Sepsis Code(s): A41.9 - Sepsis, unspecified organism Status: Acute Plan: ID consulted and cultures negative thus far On antibiotics for possible pneumonia
[2018-07-10] MEDS: Insulin NovoLIN Regular Correctional Sugar Inj SQ SCH ×4 (09:17→20:30)
[2018-07-10] MEDS: Azithromycin 250 MG Tablet PO SCH (09:22)
[2018-07-10] MEDS: Calcium Acetate 667 MG Capsule PO SCH ×3 (09:22→17:05)
[2018-07-10] MEDS: Calcitriol 0.25 MCG Capsule PO SCH (09:25)
[2018-07-10] MEDS: metOLazone 5 MG Tablet PO SCH ×2 (09:26→17:10)
[2018-07-10] MEDS: Senna/Docusate Sodium 8.6/50 MG Tablet PO SCH ×2 (09:26→20:30)
[2018-07-10] MEDS: Insulin Detemir Inj 1,000 UNIT/10 ML Vial SQ SCH ×2 (09:27→20:32)
[2018-07-10] MEDS: Heparin - SQ 10,000 UNITS/ML Vial SQ SCH ×2 (09:27→20:29)
--- NOTE | 2018-07-10 10:27 | P.PNIM ---
Subjective Interval history: pt still getting sob. more with exertion. Physical Exam Vital signs: Vital Signs 07/09/18 11:00 07/09/18 12:00 07/09/18 13:00 Temperature 98.4 F Pulse Rate 101 H 98 H 95 H Respiratory Rate 18 Blood Pressure 134/64 Pulse Oximetry 93 L 07/09/18 14:00 07/09/18 15:00 07/09/18 16:00 Temperature 97.8 F Pulse Rate 96 H 71 96 H Respiratory Rate 20 Blood Pressure 130/58 L Pulse Oximetry 93 L 07/09/18 17:00 07/09/18 18:00 07/09/18 19:00 Temperature 98 F Pulse Rate 102 H 104 H 106 H Respiratory Rate 24 Blood Pressure 135/63 Pulse Oximetry 94 L 07/09/18 21:05 07/09/18 21:29 07/09/18 22:00 Temperature Pulse Rate 102 H 106 H Respiratory Rate Blood Pressure Pulse Oximetry 95 07/09/18 23:00 07/10/18 00:00 07/10/18 01:00 Temperature 97.6 F Pulse Rate 101 H 104 H 104 H Respiratory Rate 20 Blood Pressure 151/70 H Pulse Oximetry 95 07/10/18 01:58 07/10/18 02:52 07/10/18 03:58 Temperature 98 F Pulse Rate 101 H 102 H 98 H Respiratory Rate 24 Blood Pressure 143/65 H Pulse Oximetry 94 L 07/10/18 05:00 07/10/18 06:00 Temperature Pulse Rate 99 H 95 H Respiratory Rate Blood Pressure Pulse Oximetry Intake & Output 07/09/18 07/10/18 07/10/18 18:59 06:59 18:59 Intake Total 480 / 480 1200 / 1200 Output Total 1800 / 1800 1800 / 1800 Balance -1320 / -1320 -600 / -600 Weight 89 kg Intake: Oral 480 / 480 1200 / 1200 Output: Urine 1800 / 1800 1800 / 1800 Other: Date of Last Bowel Movement 07/04/18 07/09/18 # Bowel Movements 3 heart reg lung diminished right base abd s/nt ext 1plus edema pm bandaged. Results - Labs CBC & Chem 7: 07/09/18 03:38 07/10/18 03:40 Laboratory Results - last 24 hr 07/08/18 07/09/18 07/09/18 04:27 14:24 16:32 Sodium Potassium Chloride Carbon Dioxide Anion Gap BUN Creatinine Estimated GFR POC Glucose 168 H 170 H Random Glucose Calcium Immunophenotypic Anal 07/09/18 07/10/18 07/10/18 20:04 03:40 07:52 Sodium 135 L Potassium 3.4 L Chloride 95 L Carbon Dioxide 26.6 Anion Gap 13 BUN 105 H Creatinine 2.45 H Estimated GFR 26 L POC Glucose 188 H 239 H Random Glucose 274 H D Calcium 9.7 Immunophenotypic Anal - Imaging Impressions Chest CT 07/09/18 00:45 CONCLUSION: Interstitial edema with moderate pleural effusion on the right and small on the left. Assessment and Plan - Assessment (1) CHB (complete heart block) Code(s): I44.2 - Atrioventricular block, complete Status: Acute Plan: 1. CHB. junctional escape. ppm placed 07/07 2. CHF. preserved LVF. decompensated pleural effusion. mod right. small left. 3. SO 4. FEVER/Leukocytosis. pulmonary infiltrates. 5. Diabetes 6. HTN -cont po bumex. cr improving. -cont abx rocephin/azithro per ID possible pna. rocephin stopped 07/08 -cont current bp medication -increase levemir/ssi novolog -PT daily. -wean oxygen. -pt still sob. discussed u/s guided thoracentesis on right for Wednesday. He agreed. orders placed. (2) CHF (congestive heart failure) Code(s): I50.9 - Heart failure, unspecified Status: Acute (3) Fever Code(s): R50.9 - Fever, unspecified Status: Acute (4) Acute kidney injury Code(s): N17.9 - Acute kidney failure, unspecified Status: Acute
[2018-07-11 03:42] LABS: Albumin 2.7 g/dL (3.4-5.0); Calcium 10.2 mg/dL (8.5-10.1); Potassium 3.2 meq/L (3.5-5.1); Total Protein 6.9 g/dL (6.4-8.2)
--- NOTE | 2018-07-11 08:57 | P.PNCA ---
Subjective Interval history: Patient seen and examined. Breathing improving but still some dyspnea. Going for thoracentesis now. No chest pain, palpitations. LE edema slowly improving with negative net I/O Medications and Allergies Active Medications: Active Medications Acetaminophen (Tylenol) 650 mg PO Q6H PRN PRN Reason: TEMPERATURE > 100 F Last Admin: 07/01/18 22:08 Dose: 650 mg Acetaminophen (Tylenol) 650 mg PO Q4H PRN PRN Reason: PAIN SCALE 1 TO 2 Al Hydroxide/Mg Hydroxide (Milk Of Hannah Mathis) 30 ml PO Q12H PRN PRN Reason: Mild Constipation Last Admin: 07/09/18 14:32 Dose: 30 ml Albuterol (Albuterol Neb (Prn)) 2.5 mg NEB Q2HR NEB PRN PRN Reason: DYSPNEA Aspirin (Ecotrin) 81 mg PO DAILY [facility] Last Admin: 07/10/18 09:23 Dose: 81 mg Atenolol (Tenormin) 50 mg PO DAILY [facility] Azithromycin (Zithromax) 500 mg PO DAILY [facility] Last Admin: 07/10/18 09:22 Dose: 500 mg Benzocaine/Menthol (Cepacol Max Strength) 1 lozenge BUCCAL Q2H PRN PRN Reason: SORE THROAT Last Admin: 07/04/18 08:43 Dose: 1 lozenge Benzonatate (Tessalon Perles) 100 mg PO Q8H PRN PRN Reason: COUGH Last Admin: 07/06/18 00:28 Dose: 100 mg Bisacodyl (Dulcolax Supp) 10 mg RECTAL DAILY PRN PRN Reason: SEVERE CONSITIPATION Last Admin: 07/09/18 20:49 Dose: 10 mg Bumetanide (Bumex) 2 mg PO BID@0900,1800 [facility] Last Admin: 07/10/18 17:05 Dose: 2 mg Calcitriol (Rocaltrol) 0.25 mcg PO DAILY [facility] Last Admin: 07/10/18 09:25 Dose: 0.25 mcg Calcium Acetate (Phoslo) 667 mg PO TID [facility] Last Admin: 07/10/18 17:05 Dose: 667 mg Dextrose (D50w Vial) 50 ml IV.PUSH UNSCH PRN PRN Reason: PER HYPOGLYCEMIA PROTOCOL Glucagon (Glucagon Inj) 1 mg OTHER PRN PRN PRN Reason: for Hypoglycemia Protocol Heparin Sodium (Porcine) (Heparin Inj) 5,000 units SQ Q12H [facility] Last Admin: 07/10/18 20:29 Dose: 5,000 units Insulin Detemir (Levemir Inj) 10 unit SQ BID [facility] Last Admin: 07/10/18 20:32 Dose: 10 unit Insulin Human Regular (Novolin R Correctional Sugar Inj) 0 units SQ ACHS [facility]; Protocol Last Admin: 07/10/18 20:30 Dose: 2 units Lactulose (Lactulose Liq) 30 ml PO DAILY PRN PRN Reason: SEVERE CONSITIPATION Magnesium Oxide (Mag-Ox) 800 mg PO UNSCH PRN PRN Reason: For Magnesium 1.2 - 1.6 mg/dL Metolazone (Zaroxolyn) 5 mg PO DAILY@0900,1800 [facility] Last Admin: 07/10/18 17:10 Dose: 5 mg Morphine Sulfate (Morphine Inj) 2 mg IV.PUSH Q2H PRN PRN Reason: PAIN SCALE 6 TO 10 Last Admin: 07/07/18 20:25 Dose: 2 mg Multivitamins (Theragran) 1 tab PO DAILY [facility] Last Admin: 07/10/18 09:23 Dose: 1 tab Ondansetron HCl (Zofran Inj) 4 mg IV.PUSH Q6H PRN PRN Reason: NAUSEA OR VOMITING Oxycodone HCl (Roxicodone) 5 mg PO Q4H PRN PRN Reason: Pain 1-5 Last Admin: 07/07/18 23:26 Dose: 5 mg Pantoprazole Sodium (Protonix) 40 mg PO DAILY [facility] Last Admin: 07/10/18 09:26 Dose: 40 mg Senna/Docusate Sodium (Amelia-Colace) 1 tab PO BID [facility] Last Admin: 07/10/18 20:30 Dose: 1 tab Sennosides (Senokot) 17.2 mg PO Q12H PRN PRN Reason: Moderate Constipation Last Admin: 07/09/18 14:32 Dose: 17.2 mg Sodium Chloride (Ns Flush) 2 ml IV.FLUSH BID [facility] Last Admin: 07/10/18 20:32 Dose: 2 ml Sodium Chloride (Ns Flush) 2 ml IV.FLUSH PRN PRN PRN Reason: FLUSH AFTER USING IV ACCESS Last Admin: 07/06/18 17:21 Dose: 2 ml Zolpidem Tartrate (Ambien) 10 mg PO HS PRN PRN Reason: SLEEP Last Admin: 07/10/18 21:38 Dose: 10 mg Allergies Allergy/AdvReac Type Severity Reaction Status Date / Time [id number]-Dgr Reductase Allergy Severe muscle Verified 04/12/18 05:50 Inhibitor weakness atorvastatin Allergy Mild Verified 04/12/18 05:50 Home Medications Medication Instructions Recorded Confirmed Type amlodipine 10 mg PO DAILY 06/30/18 06/30/18 History aspirin 81 mg PO BID 06/30/18 07/02/18 History calcitriol 0.25 mcg PO DAILY 06/30/18 07/02/18 History cinnamon bark [Cinnamon] 1 cap PO BID 06/30/18 07/02/18 History coenzyme Q10 [CoQ-10] 100 mg PO DAILY 06/30/18 06/30/18 History diphenhydramine-acetaminophen 1 tab PO HS PRN 06/30/18 07/02/18 History [Tylenol PM Extra Strength] furosemide 40 mg PO BID 06/30/18 06/30/18 History glucosamine sulfate 1,000 mg PO BID 06/30/18 07/02/18 History insulin aspart U-100 [Novolog 5 unit SUB-Q AC BREAKFAST 06/30/18 06/30/18 History U-100 Insulin aspart] insulin aspart U-100 [Novolog 8 units SUB-Q AC DINNER 06/30/18 07/02/18 History U-100 Insulin aspart] insulin aspart U-100 [Novolog 8 units SUB-Q AC LUNCH 06/30/18 07/02/18 History U-100 Insulin aspart] insulin glargine [Lantus U-100 28 units SUB-Q HS 06/30/18 07/02/18 History Insulin] metformin 500 mg PO DAILY 06/30/18 07/02/18 History metoprolol tartrate 50 mg PO BID 06/30/18 06/30/18 History multivitamin 1 tab PO DAILY 06/30/18 07/02/18 History omega 1-mli-dvp-fish oil [Fish Oil] 1,200 mg PO BID 06/30/18 07/02/18 History spironolactone 25 mg PO DAILY 06/30/18 06/30/18 History Physical Exam Vital signs: Vital Signs 07/10/18 09:00 07/10/18 10:00 07/10/18 11:00 Temperature 98.3 F Pulse Rate 98 H 100 H 89 Respiratory Rate 18 Blood Pressure 140/65 Pulse Oximetry 96 07/10/18 12:00 07/10/18 13:00 07/10/18 14:00 Temperature Pulse Rate 101 H 98 H 100 H Respiratory Rate Blood Pressure Pulse Oximetry 07/10/18 15:00 07/10/18 16:00 07/10/18 17:00 Temperature 98 F Pulse Rate 100 H 91 H 97 H Respiratory Rate 18 Blood Pressure 134/79 Pulse Oximetry 97 07/10/18 18:00 07/10/18 19:00 07/10/18 20:00 Temperature 98.0 F Pulse Rate 99 H 94 H 97 H Respiratory Rate 24 Blood Pressure 139/65 Pulse Oximetry 94 L 07/10/18 21:12 07/10/18 22:00 07/10/18 23:00 Temperature 98.4 F Pulse Rate 98 H 95 H 95 H Respiratory Rate 24 Blood Pressure 135/62 Pulse Oximetry 96 07/11/18 00:00 07/11/18 00:56 07/11/18 02:00 Temperature Pulse Rate 60 100 H 93 H Respiratory Rate Blood Pressure Pulse Oximetry 07/11/18 02:51 07/11/18 03:00 07/11/18 04:00 Temperature 98.4 F Pulse Rate 87 90 73 Respiratory Rate 24 Blood Pressure 120/57 L Pulse Oximetry 97 07/11/18 05:00 07/11/18 06:00 07/11/18 07:00 Temperature 98.2 F Pulse Rate 82 82 85 Respiratory Rate 17 Blood Pressure 129/63 Pulse Oximetry 97 Intake & Output 07/10/18 07/11/18 07/11/18 18:59 06:59 18:59 Intake Total 480 / 480 1200 / 1200 Output Total 1999 / 1999 1800 / 1800 Balance -1520 / -1520 -600 / -600 Weight 89 kg Intake: Oral 480 / 480 1200 / 1200 Output: Urine 1999 / 1999 1799 / 1800 Other: Date of Last Bowel Movement 07/09/18 07/09/18 Narrative: GENERAL: Well-developed well-nourished. In no acute distress. NECK: No carotid bruits. No JVD. CARDIOVASCULAR: Regular rate and rhythm. No murmur appreciated. Pacemaker in place on left chest wall with no swelling, ecchymosis, or tenderness. RESPIRATORY: No accessory muscle use. Clear to auscultation. Breath sounds equal bilaterally. MUSCULOSKELETAL: No clubbing or cyanosis. 2+ bilateral edema. Left arm in a sling. NEUROLOGICAL: Awake and alert. Normal speech. Results 07/09/18 03:38 07/11/18 02:48 Cardiac Enzymes 07/11/18 Range/Units 02:48 AST 46 H (15-37) U/L Lactate Dehydrogenase 374 H (87-241) U/L Comprehensive Metabolic Panel 07/10/18 07/11/18 Range/Units 03:40 02:48 Sodium 135 L 138 (136-145) meq/L Potassium 3.4 L 3.2 L (3.5-5.1) meq/L Chloride 95 L 96 L (98-107) meq/L Carbon Dioxide 26.6 30.0 (21.0-32.0) meq/L BUN 105 H 94 H (7-18) mg/dL Creatinine 2.45 H 2.22 H (0.60-1.30) mg/dL Calcium 9.7 10.2 H (8.5-10.1) mg/dL Direct Bilirubin 0.2 (0.0-0.2) mg/dL Indirect Bilirubin 0.3 (0.0-0.8) mg/dL AST 46 H (15-37) U/L ALT 22 (12-78) U/L Alkaline Phosphatase 64 (45-117) U/L Total Protein 6.9 (6.4-8.2) g/dL Albumin 2.7 L (3.4-5.0) g/dL Intake and Output 07/10/18 07/11/18 07/11/18 22:59 06:59 14:59 Intake Total 480 / 480 1200 / 1200 Output Total 1999 / 1999 1800 / 1800 Balance -1520 / -1520 -600 / -600 Intake: Oral 480 / 480 1200 / 1200 Output: Urine 1999 / 1800 Other: Date of Last Bowel Movement 07/09/18 07/09/18 Weight 89 kg - Imaging and Cardiology Imaging: Impressions Chest CT 07/09/18 00:45 CONCLUSION: Interstitial edema with moderate pleural effusion on the right and small on the left. Assessment and Plan - Plan Assessment: Patient admitted as transfer from [facility] with CHB and junctional escape rhythm, hemodynamically stable in the setting of ADHF, fever, leukocytosis, and CKD stage 3. There was concern for possible bacterial endocarditis in this setting, however transthoracic echocardiogram and transesophageal echocardiogram did not reveal any valvular vegetations. LV systolic function is normal. Still with persistent hypervolemic state, plan for thoracentesis today. -CHB, with junctional escape rhythm, no s/p [employer] dual chamber PPM 07/07/18 -HFpEF -symptomatically improved past few days with aggressive diuresis, going for thoracentesis today. -Anasarca with lower extremity edema and hypoalbuminemia -Chronic Leukocytosis, cultures negative to date, was cleared by ID for pacemaker, hematology consult appreciated. -CKD stage 3, with SO, stable -CAD, asymptomatic -Moderate aortic bioprosthesis stenosis on echo, normal EF Recommendations: -agree with thoracentesis today -d/c hydralazine and start atenolol 50mg daily -s/p PPM 07/07/18 - no lifting with left arm, follow-up in 10 days -Nephrology following for SO on CKD -Continue home ASA 81mg daily -Continue diuresis
--- NOTE | 2018-07-11 10:00 | XR ---
EXAM DATE: 07/11/2018 9:53 AM EDT AGE/SEX: 72 years / Male INDICATIONS: Post right thoracentesis. CLINICAL DATA: This is the patient's subsequent encounter. Patient reports that signs and symptoms h ave been present for 3 days and indicates a pain score of 0/10. MEDICAL/SURGICAL HISTORY: . Cardiovascular disease. Congestive heart failure. Diabetes. Chronic kidney disease. . Pacemaker. Aortic valve replacement. COMPARISON: [facility] [place], CHEST 1V SINGLE AP, 07/07/2018. . FINDINGS: Stable median sternotomy wires and dual lead pacemaker. Improved aeration of the lower lung zones wit h persistent mild airspace disease and likely trace pleural effusion on the left. Cardiomediastinal c ontours are stable. Remainder of the exam is unchanged. CONCLUSION: 1. Significantly improved aeration of the right lung following thoracentesis without pneumothorax. 2. Improved aeration of the left lower lung zone with persistent mild patchy airspace disease and li ever trace pleural effusion. Electronically signed by: Clifford Dickinson MD 07/11/2018 9:59 AM EDT
[2018-07-11 10:50] LABS: Total Protein,Pleural Fluid 2.1 gm/dL
[2018-07-11 11:33] LABS: RBC,Pleural Fluid 50 /mm3 (0-0)
[2018-07-11 11:35] LABS: Lymphocytes,Pleural Fluid 92 %; Monocytes,Pleural Fluid 4 %; Neutrophils,Pleural Fluid 1 %
[2018-07-11] MEDS: Calcium Acetate 667 MG Capsule PO SCH ×3 (12:48→18:53)
[2018-07-11] MEDS: Insulin NovoLIN Regular Correctional Sugar Inj SQ SCH ×4 (12:48→21:37)
--- NOTE | 2018-07-11 13:48 | US ---
EXAM DATE: 07/11/2018 9:53 AM EDT AGE/SEX: 72 years / Male INDICATIONS: Right pleural effusion. CLINICAL DATA: This is the patient's initial encounter. Patient reports that signs and symptoms have been present for 2 days and indicates a pain score of 4/10. MEDICAL/SURGICAL HISTORY: Congestive heart failure. Hypertension. Renal insufficiency, chroni c. CAD. Diabetes. Hyperlipidemia. Pacemaker. Bilateral hip replacement. Aortic valve replacement. COMPARISON: . FLUID: Total volume of 800 cc of clear, red fluid was removed. Fluid was sent to lab for ordered studies. TECHNIQUE: Ultrasound guidance for thoracentesis. Thoracentesis. The risks, benefits, and alternatives to ultrasound guided thoracentesis were explained to the patien t in lay simple terms, including the risk of bleeding and infection. Written and verbal informed con sent was obtained. Appropriate area for right thoracentesis was marked under ultrasound guidance with the patient in the upright position. Overlying skin was prepped and draped in the usual sterile fashion and with local anesthetic, a dermatotomy was made with an 11 blade scalpel. A 6 [place] thoracentesis catheter was placed in the pleural space and fluid was removed. Catheter was then removed and a sterile dressing applied. There were no immediate complications. The patient tolerated the procedure well and the lef t the ultrasound suite in stable condition. Chest radiograph is to be obtained. CONCLUSION: 1. Uncomplicated right thoracentesis. Electronically signed by: Abilio Tomas MD 07/11/2018 1:46 PM EDT
[2018-07-11] MEDS: Heparin - SQ 10,000 UNITS/ML Vial SQ SCH ×2 (15:41→21:34)
[2018-07-11] MEDS: Insulin Detemir Inj 1,000 UNIT/10 ML Vial SQ SCH ×2 (15:41→21:36)
[2018-07-11] MEDS: Senna/Docusate Sodium 8.6/50 MG Tablet PO SCH ×2 (15:42→21:34)
[2018-07-11] MEDS: Calcitriol 0.25 MCG Capsule PO SCH (15:42)
[2018-07-11] MEDS: metOLazone 5 MG Tablet PO SCH ×2 (15:42→18:59)
[2018-07-11] MEDS: Azithromycin 250 MG Tablet PO SCH (15:42)
[2018-07-11] MEDS: Atenolol 50 MG Tablet PO SCH (15:43)
--- NOTE | 2018-07-11 17:32 | P.PNIM ---
Subjective Interval history: No new complaints. Less SOB since thoracentesis. Physical Exam Vital signs: 07/11/18 14:00 07/11/18 15:00 07/11/18 16:00 Temperature 98.5 F Pulse Rate 99 H 97 H 101 H Respiratory Rate 16 Blood Pressure 138/75 Pulse Oximetry 95 Narrative: GENERAL: Well-developed well-nourished. In no acute distress. NECK: No carotid bruits. No JVD. CARDIOVASCULAR: Regular rate and rhythm. No murmur appreciated. Pacemaker in place on left chest wall with no swelling, ecchymosis, or tenderness. RESPIRATORY: No accessory muscle use. Clear to auscultation. Breath sounds equal bilaterally. MUSCULOSKELETAL: No clubbing or cyanosis. 1+ bilateral edema. Left arm in a sling. NEUROLOGICAL: Awake and alert. Normal speech. Results - Labs CBC & Chem 7: 07/17/18 05:09 07/17/18 05:09 - Imaging Impressions Chest X-Ray 07/11/18 00:00 CONCLUSION: 1. Significantly improved aeration of the right lung following thoracentesis without pneumothorax. 2. Improved aeration of the left lower lung zone with persistent mild patchy airspace disease and likely trace pleural effusion. Thoracentesis Ultrasound 07/11/18 06:00 CONCLUSION: 1. Uncomplicated right thoracentesis. Assessment and Plan - Assessment (1) CHB (complete heart block) Code(s): I44.2 - Atrioventricular block, complete Status: Acute Plan: 1. CHB. junctional escape. ppm placed 07/07 2. CHF. preserved LVF. decompensated pleural effusion. mod right. small left. 3. SO 4. FEVER/Leukocytosis. pulmonary infiltrates. 5. Diabetes 6. HTN - Pt had thoracentesis today with removal of 800ml fluid -cont po bumex. cr improving. -cont abx rocephin/azithro per ID possible pna. rocephin stopped 07/08 -cont current bp medication -increase levemir to 15 units BID/ssi novolog -PT daily. -wean oxygen. -pt - anticipate d/c in next 1-2 days. (2) CHF (congestive heart failure) Code(s): I50.9 - Heart failure, unspecified Status: Acute (3) Fever Code(s): R50.9 - Fever, unspecified Status: Acute (4) Acute kidney injury Code(s): N17.9 - Acute kidney failure, unspecified Status: Acute
--- NOTE | 2018-07-11 19:11 | P.PNNP ---
Subjective Interval history: Patient is alert, seen after Thoracentesis, feeling better, breathing is better. Physical Exam Vital signs: Vital Signs 07/10/18 20:00 07/10/18 21:12 07/10/18 22:00 Temperature Pulse Rate 97 H 98 H 95 H Respiratory Rate Blood Pressure Pulse Oximetry 07/10/18 23:00 07/11/18 00:00 07/11/18 00:56 Temperature 98.4 F Pulse Rate 95 H 60 100 H Respiratory Rate 24 Blood Pressure 135/62 Pulse Oximetry 96 07/11/18 02:00 07/11/18 02:51 07/11/18 03:00 Temperature 98.4 F Pulse Rate 93 H 87 90 Respiratory Rate 24 Blood Pressure 120/57 L Pulse Oximetry 97 07/11/18 04:00 07/11/18 05:00 07/11/18 06:00 Temperature Pulse Rate 73 82 82 Respiratory Rate Blood Pressure Pulse Oximetry 07/11/18 07:00 07/11/18 08:00 07/11/18 08:55 Temperature 98.2 F 98.4 F Pulse Rate 85 86 100 H Respiratory Rate 17 18 Blood Pressure 129/63 146/66 H Pulse Oximetry 97 93 L 07/11/18 09:55 07/11/18 10:10 07/11/18 11:00 Temperature 98.2 F 98.3 F Pulse Rate 99 H 97 H 95 H Respiratory Rate 18 18 15 Blood Pressure 135/71 145/73 H 136/65 Pulse Oximetry 93 L 94 L 100 07/11/18 13:00 07/11/18 14:00 07/11/18 15:00 Temperature 98.5 F Pulse Rate 103 H 99 H 97 H Respiratory Rate 16 Blood Pressure 138/75 Pulse Oximetry 95 07/11/18 16:00 07/11/18 17:00 07/11/18 18:00 Temperature Pulse Rate 101 H 99 H 98 H Respiratory Rate Blood Pressure Pulse Oximetry Intake & Output 07/11/18 07/11/18 07/12/18 06:59 18:59 06:59 Intake Total 1200 / 1200 Output Total 1800 / 1800 Balance -600 / -600 Weight 89 kg Intake: Oral 1200 / 1200 Output: Urine 1800 / 1800 Other: Date of Last Bowel Movement 07/09/18 Narrative: GENERAL: Well-developed well-nourished. In no acute distress. NECK: No carotid bruits. No JVD. CARDIOVASCULAR: Regular rate and rhythm. No murmur appreciated. Pacemaker in place on left chest wall with no swelling, ecchymosis, or tenderness. RESPIRATORY: No accessory muscle use. Clear to auscultation. Breath sounds equal bilaterally. MUSCULOSKELETAL: No clubbing or cyanosis. 1+ bilateral edema. Left arm in a sling. NEUROLOGICAL: Awake and alert. Normal speech. Assessment and Plan - Assessment (1) Acute kidney injury Code(s): N17.9 - Acute kidney failure, unspecified Status: Acute Plan: Acute kidney injury with creatinine of 2.60 on day of consult. SO possibly ATN from decreased cardiac output/ third spacing/ infection History of chronic kidney disease with mild proteinuria possibly from diabetic or hypertensive renal disease. Baseline creatinine not available but creatinine noted to be 1.20 April 2011 Renal ultrasound with no evidence of stone, masses or hydronephrosis Plan Monitor strict I+O Renal function has improved. Will continue metolazone, and Bumex BID, Avoid nephrotoxins including IV contrast and aminoglycosides. s/p pacemaker. Creatinine is better, 2.2 now. Follow the BMP and the urine out put. (2) Anemia Code(s): D64.9 - Anemia, unspecified Status: Acute Plan: Hemoglobin stable Most likely from chronic disease (3) Complete heart block by electrocardiogram Code(s): I44.2 - Atrioventricular block, complete Status: Acute Plan: Pacemaker placement on 07/07 (4) Sepsis Code(s): A41.9 - Sepsis, unspecified organism Status: Acute Plan: ID consulted and cultures negative thus far On antibiotics for possible pneumonia
[2018-07-12 05:06] LABS: Baso # (Auto) 0.1 th/mm3 (0.0-0.2); Baso % (Auto) 0.6 % (0.0-2.0); Eos # (Auto) 0.6 th/mm3 (0.0-0.4); Eos % (Auto) 3.3 % (0.0-4.0); Hematocrit 28.9 % (39.0-51.0); Hemoglobin 9.7 gm/dL (13.0-17.0); Lymph # (Auto) 6.6 th/mm3 (1.0-4.8); Mean Corpuscular HGB Conc 33.5 % (32.0-36.0); Mean Corpuscular Hemoglobin 29.9 pg (27.0-34.0); Mean Corpuscular Volume 89.3 fL (80.0-100.0); Mean Platelet Volume 9.4 fL (7.0-11.0); Mono # (Auto) 1.9 th/mm3 (0.0-0.9); Mono % (Auto) 10.6 % (0.0-8.0); Neut # (Auto) 9.1 th/mm3 (1.8-7.7); Neut % (Auto) 49.5 % (16.0-70.0); Platelet Count 415 th/mm3 (150-450); Red Blood Count 3.23 mil/mm3 (4.50-5.90); Red Cell Distribution Width 15.6 % (11.6-17.2); White Blood Count 18.3 th/mm3 (4.0-11.0)
[2018-07-12 05:34] LABS: Calcium 10.3 mg/dL (8.5-10.1); Carbon Dioxide 32.2 meq/L (21.0-32.0); Magnesium 2.1 mg/dL (1.5-2.5); Potassium 3.1 meq/L (3.5-5.1)
[2018-07-12 07:03] LABS: Eosinophils 1 % (0-4); Lymphocytes 36 % (9-44); Monocytes 9 % (0-8); Platelet Estimate Normal (Normal); Platelet Morphology Normal (Normal); Smudge Cells Present
--- NOTE | 2018-07-12 07:46 | P.PNCA ---
Subjective Interval history: RN at bedside. Patient reports great urine output with negative fluid balance 790 overnight and just put out another 300 mL prior to exam. He reports breathing and orthopnea are improving. He was able to sleep in the bed with 2 pillows overnight. s/p thoracentesis yesterday with 800 mL's removed. Medications and Allergies Allergies Allergy/AdvReac Type Severity Reaction Status Date / Time [id number] Reductase Allergy Severe muscle Verified 04/12/18 05:50 Inhibitor weakness atorvastatin Allergy Mild Verified 04/12/18 05:50 Home Medications Medication Instructions Recorded Confirmed Type amlodipine 10 mg PO DAILY 06/30/18 06/30/18 History aspirin 81 mg PO BID 06/30/18 07/02/18 History calcitriol 0.25 mcg PO DAILY 06/30/18 07/02/18 History cinnamon bark [Cinnamon] 1 cap PO BID 06/30/18 07/02/18 History coenzyme Q10 [CoQ-10] 100 mg PO DAILY 06/30/18 06/30/18 History diphenhydramine-acetaminophen 1 tab PO HS PRN 06/30/18 07/02/18 History [Tylenol PM Extra Strength] furosemide 40 mg PO BID 06/30/18 06/30/18 History glucosamine sulfate 1,000 mg PO BID 06/30/18 07/02/18 History insulin aspart U-100 [Novolog 5 unit SUB-Q AC BREAKFAST 06/30/18 06/30/18 History U-100 Insulin aspart] insulin aspart U-100 [Novolog 8 units SUB-Q AC DINNER 06/30/18 07/02/18 History U-100 Insulin aspart] insulin aspart U-100 [Novolog 8 units SUB-Q AC LUNCH 06/30/18 07/02/18 History U-100 Insulin aspart] insulin glargine [Lantus U-100 28 units SUB-Q HS 06/30/18 07/02/18 History Insulin] metformin 500 mg PO DAILY 06/30/18 07/02/18 History metoprolol tartrate 50 mg PO BID 06/30/18 06/30/18 History multivitamin 1 tab PO DAILY 06/30/18 07/02/18 History omega 0-ctc-frz-fish oil [Fish Oil] 1,200 mg PO BID 06/30/18 07/02/18 History spironolactone 25 mg PO DAILY 06/30/18 06/30/18 History Active Medications: Active Medications Acetaminophen (Tylenol) 650 mg PO Q6H PRN PRN Reason: TEMPERATURE > 100 F Last Admin: 07/01/18 22:08 Dose: 650 mg Acetaminophen (Tylenol) 650 mg PO Q4H PRN PRN Reason: PAIN SCALE 1 TO 2 Al Hydroxide/Mg Hydroxide (Milk Of [place] Liq) 30 ml PO Q12H PRN PRN Reason: Mild Constipation Last Admin: 07/11/18 21:36 Dose: 30 ml Albuterol (Albuterol Neb (Prn)) 2.5 mg NEB Q2HR NEB PRN PRN Reason: DYSPNEA Aspirin (Ecotrin) 81 mg PO DAILY [facility] Last Admin: 07/11/18 15:41 Dose: Not Given Atenolol (Tenormin) 50 mg PO DAILY [facility] Last Admin: 07/11/18 15:43 Dose: Not Given Azithromycin (Zithromax) 500 mg PO DAILY [facility] Last Admin: 07/11/18 15:42 Dose: Not Given Benzocaine/Menthol (Cepacol Max Strength) 1 lozenge BUCCAL Q2H PRN PRN Reason: SORE THROAT Last Admin: 07/04/18 08:43 Dose: 1 lozenge Benzonatate (Tessalon Perles) 100 mg PO Q8H PRN PRN Reason: COUGH Last Admin: 07/06/18 00:28 Dose: 100 mg Bisacodyl (Dulcolax Supp) 10 mg RECTAL DAILY PRN PRN Reason: SEVERE CONSITIPATION Last Admin: 07/09/18 20:49 Dose: 10 mg Bumetanide (Bumex) 2 mg PO BID@0900,1800 [facility] Last Admin: 07/11/18 15:41 Dose: Not Given Calcitriol (Rocaltrol) 0.25 mcg PO DAILY [facility] Last Admin: 07/11/18 15:42 Dose: Not Given Calcium Acetate (Phoslo) 667 mg PO TID [facility] Last Admin: 07/11/18 18:53 Dose: 667 mg Dextrose (D50w Vial) 50 ml IV.PUSH UNSCH PRN PRN Reason: PER HYPOGLYCEMIA PROTOCOL Glucagon (Glucagon Inj) 1 mg OTHER PRN PRN PRN Reason: for Hypoglycemia Protocol Heparin Sodium (Porcine) (Heparin Inj) 5,000 units SQ Q12H [facility] Last Admin: 07/11/18 21:34 Dose: 5,000 units Insulin Detemir (Levemir Inj) 15 unit SQ BID [facility] Last Admin: 07/11/18 21:36 Dose: 15 unit Insulin Human Regular (Novolin R Correctional Sugar Inj) 0 units SQ ACHS [facility]; Protocol Last Admin: 07/11/18 21:37 Dose: 10 units Lactulose (Lactulose Liq) 30 ml PO DAILY PRN PRN Reason: SEVERE CONSITIPATION Magnesium Oxide (Mag-Ox) 800 mg PO UNSCH PRN PRN Reason: For Magnesium 1.2 - 1.6 mg/dL Metolazone (Zaroxolyn) 5 mg PO DAILY@0900,1800 [facility] Last Admin: 07/11/18 18:59 Dose: 5 mg Morphine Sulfate (Morphine Inj) 2 mg IV.PUSH Q2H PRN PRN Reason: PAIN SCALE 6 TO 10 Last Admin: 07/07/18 20:25 Dose: 2 mg Multivitamins (Theragran) 1 tab PO DAILY [facility] Last Admin: 07/11/18 15:42 Dose: Not Given Ondansetron HCl (Zofran Inj) 4 mg IV.PUSH Q6H PRN PRN Reason: NAUSEA OR VOMITING Oxycodone HCl (Roxicodone) 5 mg PO Q4H PRN PRN Reason: Pain 1-5 Last Admin: 07/07/18 23:26 Dose: 5 mg Pantoprazole Sodium (Protonix) 40 mg PO DAILY [facility] Last Admin: 07/11/18 15:42 Dose: Not Given Senna/Docusate Sodium (Amelia-Colace) 1 tab PO BID [facility] Last Admin: 07/11/18 21:34 Dose: 1 tab Sennosides (Senokot) 17.2 mg PO Q12H PRN PRN Reason: Moderate Constipation Last Admin: 07/09/18 14:32 Dose: 17.2 mg Sodium Chloride (Ns Flush) 2 ml IV.FLUSH BID [facility] Last Admin: 07/11/18 21:36 Dose: 2 ml Sodium Chloride (Ns Flush) 2 ml IV.FLUSH PRN PRN PRN Reason: FLUSH AFTER USING IV ACCESS Last Admin: 07/06/18 17:21 Dose: 2 ml Zolpidem Tartrate (Ambien) 10 mg PO HS PRN PRN Reason: SLEEP Last Admin: 07/11/18 21:36 Dose: 10 mg Physical Exam Vital signs: Vital Signs 07/11/18 08:00 07/11/18 08:55 07/11/18 09:55 Temperature 98.4 F 98.2 F Pulse Rate 86 100 H 99 H Respiratory Rate 18 18 Blood Pressure 146/66 H 135/71 Pulse Oximetry 93 L 93 L 07/11/18 10:10 07/11/18 11:00 07/11/18 13:00 Temperature 98.3 F Pulse Rate 97 H 95 H 103 H Respiratory Rate 18 15 Blood Pressure 145/73 H 136/65 Pulse Oximetry 94 L 100 07/11/18 14:00 07/11/18 15:00 07/11/18 16:00 Temperature 98.5 F Pulse Rate 99 H 97 H 101 H Respiratory Rate 16 Blood Pressure 138/75 Pulse Oximetry 95 07/11/18 17:00 07/11/18 18:00 07/11/18 19:00 Temperature 98.4 F Pulse Rate 99 H 98 H 96 H Respiratory Rate 16 Blood Pressure 153/77 H Pulse Oximetry 97 07/11/18 20:00 07/11/18 21:00 07/11/18 22:00 Temperature Pulse Rate 98 H 97 H 97 H Respiratory Rate Blood Pressure Pulse Oximetry 07/11/18 23:00 07/12/18 00:00 07/12/18 01:00 Temperature 98.5 F Pulse Rate 100 H 98 H 98 H Respiratory Rate 16 Blood Pressure 139/72 Pulse Oximetry 97 07/12/18 02:00 07/12/18 03:00 07/12/18 04:00 Temperature 98.5 F Pulse Rate 98 H 100 H 98 H Respiratory Rate 16 Blood Pressure 123/63 Pulse Oximetry 97 07/12/18 05:00 07/12/18 06:00 Temperature Pulse Rate 91 H 95 H Respiratory Rate Blood Pressure Pulse Oximetry Intake & Output 07/11/18 07/12/18 07/12/18 18:59 06:59 18:59 Intake Total 420 / 420 480 / 480 Output Total 650 / 650 1040 / 1040 Balance -230 / -230 -560 / -560 Weight 195 lb 1.745 oz Intake: Oral 420 / 420 480 / 480 Output: Urine 650 / 650 1040 / 1040 Narrative: GENERAL: Well-developed well-nourished. In no acute distress. NECK: No carotid bruits. No JVD. CARDIOVASCULAR: Regular rate and rhythm. No murmur appreciated. Pacemaker in place on left chest wall with no swelling, ecchymosis, or tenderness. RESPIRATORY: No accessory muscle use. Clear to auscultation. Breath sounds equal bilaterally. MUSCULOSKELETAL: No clubbing or cyanosis. 2+ bilateral edema. Left arm in a sling. NEUROLOGICAL: Awake and alert. Normal speech. Results 07/12/18 03:02 07/12/18 03:02 Cardiac Enzymes 07/11/18 Range/Units 02:48 AST 46 H (15-37) U/L Lactate Dehydrogenase 374 H (87-241) U/L CBC 07/12/18 Range/Units 03:02 WBC 18.3 H (4.0-11.0) th/mm3 RBC 3.23 L (4.50-5.90) mil/mm3 Hgb 9.7 L (13.0-17.0) gm/dL Hct 28.9 L (39.0-51.0) % Plt Count 415 (150-450) th/mm3 Neut # (Auto) 9.1 H (1.8-7.7) th/mm3 Lymph # (Auto) 6.6 H (1.0-4.8) th/mm3 [place] # (Auto) 1.9 H (0.0-0.9) th/mm3 Eos # (Auto) 0.6 H (0.0-0.4) th/mm3 Baso # (Auto) 0.1 (0.0-0.2) th/mm3 Comprehensive Metabolic Panel 07/11/18 07/12/18 Range/Units 02:48 03:02 Sodium 138 138 (136-145) meq/L Potassium 3.2 L 3.1 L (3.5-5.1) meq/L Chloride 96 L 97 L (98-107) meq/L Carbon Dioxide 30.0 32.2 H (21.0-32.0) meq/L BUN 94 H 93 H (7-18) mg/dL Creatinine 2.22 H 2.04 H (0.60-1.30) mg/dL Calcium 10.2 H 10.3 H (8.5-10.1) mg/dL Direct Bilirubin 0.2 (0.0-0.2) mg/dL Indirect Bilirubin 0.3 (0.0-0.8) mg/dL AST 46 H (15-37) U/L ALT 22 (12-78) U/L Alkaline Phosphatase 64 (45-117) U/L Total Protein 6.9 (6.4-8.2) g/dL Albumin 2.7 L (3.4-5.0) g/dL Intake and Output 07/11/18 07/12/18 07/12/18 22:59 06:59 14:59 Intake Total 420 / 420 480 / 480 Output Total 650 / 650 1040 / 1040 Balance -230 / -230 -560 / -560 Intake: Oral 420 / 420 480 / 480 Output: Urine 650 / 650 1040 / 1040 Other: Weight 195 lb 1.745 oz - Imaging and Cardiology Imaging: Impressions Chest X-Ray 07/11/18 00:00 CONCLUSION: 1. Significantly improved aeration of the right lung following thoracentesis without pneumothorax. 2. Improved aeration of the left lower lung zone with persistent mild patchy airspace disease and likely trace pleural effusion. Thoracentesis Ultrasound 07/11/18 06:00 CONCLUSION: 1. Uncomplicated right thoracentesis. Assessment and Plan - Plan Assessment: Patient admitted as transfer from [facility] with CHB and junctional escape rhythm, hemodynamically stable in the setting of ADHF, fever, leukocytosis, and CKD stage 3. There was concern for possible bacterial endocarditis in this setting, however transthoracic echocardiogram and transesophageal echocardiogram did not reveal any valvular vegetations. LV systolic function is normal. Still with persistent hypervolemic state, plan for thoracentesis today. -CHB, with junctional escape rhythm, no s/p [employer] dual chamber PPM 07/07/18 -HFpEF -symptomatically improved past few days with aggressive diuresis and thoracentesis 07/11. -Anasarca with lower extremity edema and hypoalbuminemia -Chronic Leukocytosis, cultures negative to date, was cleared by ID for pacemaker, hematology consult appreciated. -CKD stage 3, with SO, stable -CAD, asymptomatic -Moderate aortic bioprosthesis stenosis on echo, normal EF -HTN Recommendations: -increase atenolol to 100mg daily -s/p PPM 07/07/18 - no lifting with left arm, follow-up in 1 week -Nephrology following for SO on CKD -Continue home ASA 81mg daily -Continue diuresis
[2018-07-12] MEDS: Calcitriol 0.25 MCG Capsule PO SCH (08:27)
[2018-07-12] MEDS: Atenolol 50 MG Tablet PO SCH (08:27)
[2018-07-12] MEDS: Azithromycin 250 MG Tablet PO SCH (08:27)
[2018-07-12] MEDS: Calcium Acetate 667 MG Capsule PO SCH ×2 (08:27→12:10)
[2018-07-12] MEDS: Insulin NovoLIN Regular Correctional Sugar Inj SQ SCH (08:27)
[2018-07-12] MEDS: Senna/Docusate Sodium 8.6/50 MG Tablet PO SCH ×2 (08:27→21:37)
[2018-07-12] MEDS: Insulin Detemir Inj 1,000 UNIT/10 ML Vial SQ SCH ×2 (08:28→21:37)
[2018-07-12] MEDS: Heparin - SQ 10,000 UNITS/ML Vial SQ SCH (08:28)
[2018-07-12] MEDS: metOLazone 5 MG Tablet PO SCH ×2 (08:32→17:04)
[2018-07-12] MEDS: Atenolol 100 MG Tablet PO SCH (09:05)
[2018-07-12] MEDS ORDERED: Dextrose 50% in Water 50 ML Vial IV.PUSH PRN (10:28)
--- NOTE | 2018-07-12 10:36 | P.PNIM ---
Subjective Interval history: Patient sitting up in chair with legs elevated Patient does not feel ready to go home yet, c/o light intermittent chest pressure last 10 - 15 mins then resolves spontaneously. Denies associated SOB, diaphoresis, N/V. Patient also continues to have BLE edema which he feels is a little better than yesterday. Physical Exam Vital signs: Vital Signs 07/11/18 11:00 07/11/18 13:00 07/11/18 14:00 Temperature 98.3 F Pulse Rate 95 H 103 H 99 H Respiratory Rate 15 Blood Pressure 136/65 Pulse Oximetry 100 07/11/18 15:00 07/11/18 16:00 07/11/18 17:00 Temperature 98.5 F Pulse Rate 97 H 101 H 99 H Respiratory Rate 16 Blood Pressure 138/75 Pulse Oximetry 95 07/11/18 18:00 07/11/18 19:00 07/11/18 20:00 Temperature 98.4 F Pulse Rate 98 H 96 H 98 H Respiratory Rate 16 Blood Pressure 153/77 H Pulse Oximetry 97 07/11/18 21:00 07/11/18 22:00 07/11/18 23:00 Temperature 98.5 F Pulse Rate 97 H 97 H 100 H Respiratory Rate 16 Blood Pressure 139/72 Pulse Oximetry 97 07/12/18 00:00 07/12/18 01:00 07/12/18 02:00 Temperature Pulse Rate 98 H 98 H 98 H Respiratory Rate Blood Pressure Pulse Oximetry 07/12/18 03:00 07/12/18 04:00 07/12/18 05:00 Temperature 98.5 F Pulse Rate 100 H 98 H 91 H Respiratory Rate 16 Blood Pressure 123/63 Pulse Oximetry 97 07/12/18 06:00 07/12/18 07:00 07/12/18 08:00 Temperature 97.9 F Pulse Rate 95 H 96 H 87 Respiratory Rate 18 Blood Pressure 148/80 H Pulse Oximetry 98 07/12/18 09:00 07/12/18 10:00 Temperature Pulse Rate 87 71 Respiratory Rate Blood Pressure Pulse Oximetry Intake & Output 07/11/18 07/12/18 07/12/18 18:59 06:59 18:59 Intake Total 420 / 420 480 / 480 Output Total 650 / 650 1040 / 1040 Balance -230 / -230 -560 / -560 Weight 88.5 kg Intake: Oral 420 / 420 480 / 480 Output: Urine 650 / 650 1040 / 1040 Narrative: GENERAL: Well-developed well-nourished. In no acute distress. NECK: No carotid bruits. No JVD. CARDIOVASCULAR: Regular rate and rhythm. No murmur appreciated. Pacemaker in place on left chest wall with no swelling, ecchymosis, or tenderness. RESPIRATORY: No accessory muscle use. Clear to auscultation. Breath sounds equal bilaterally. MUSCULOSKELETAL: No clubbing or cyanosis. 1-2+ bilateral edema. NEUROLOGICAL: Awake and alert. Normal speech. Results - Labs CBC & Chem 7: 07/12/18 03:02 07/12/18 03:02 Laboratory Results - last 24 hr 07/11/18 07/11/18 07/11/18 09:36 09:36 11:28 WBC RBC Hgb Hct MCV MCH MCHC RDW Plt Count MPV Prelim Diff (Auto) Neut % (Auto) Lymph % (Auto) [place] % (Auto) Eos % (Auto) Baso % (Auto) Neut # (Auto) Lymph # (Auto) [place] # (Auto) Eos # (Auto) Baso # (Auto) WBC Differential Seg Neuts % (Manual) Lymphocytes % (Manual) Monocytes % (Manual) Eosinophils % (Manual) Abs Neuts (Manual) Differential Comment Smudge Cells Platelet Estimate Platelet Morphology Sodium Potassium Chloride Carbon Dioxide Anion Gap BUN Creatinine Estimated GFR POC Glucose 299 H Random Glucose Calcium Magnesium Pleural RBC 50 H Pleural Nuc Cells 205 H Pleural Neutrophils 1 Pleural Lymphocytes 92 Pleural Monocytes 4 Pleural Plasma Cells 1 Pleural Histocytes 2 Pleural Fluid Comment Pleural Total Protein 2.1 Pleural LDH 122 Pleural Glucose 187 07/11/18 07/11/18 07/12/18 17:04 19:56 03:02 WBC 18.3 H RBC 3.23 L Hgb 9.7 L Hct 28.9 L MCV 89.3 MCH 29.9 MCHC 33.5 RDW 15.6 Plt Count 415 MPV 9.4 Prelim Diff (Auto) Slide review pending Neut % (Auto) 49.5 Lymph % (Auto) 36.0 [place] % (Auto) 10.6 H Eos % (Auto) 3.3 Baso % (Auto) 0.6 Neut # (Auto) 9.1 H Lymph # (Auto) 6.6 H [place] # (Auto) 1.9 H Eos # (Auto) 0.6 H Baso # (Auto) 0.1 WBC Differential Manual diff final Seg Neuts % (Manual) 54 Lymphocytes % (Manual) 36 Monocytes % (Manual) 9 H Eosinophils % (Manual) 1 Abs Neuts (Manual) 9.9 H Differential Comment . Smudge Cells Present H Platelet Estimate Normal Platelet Morphology Normal Sodium Potassium Chloride Carbon Dioxide Anion Gap BUN Creatinine Estimated GFR POC Glucose 295 H 326 H Random Glucose Calcium Magnesium Pleural RBC Pleural Nuc Cells Pleural Neutrophils Pleural Lymphocytes Pleural Monocytes Pleural Plasma Cells Pleural Histocytes Pleural Fluid Comment Pleural Total Protein Pleural LDH Pleural Glucose 07/12/18 07/12/18 07/12/18 03:02 05:40 06:02 WBC RBC Hgb Hct MCV MCH MCHC RDW Plt Count MPV Prelim Diff (Auto) Neut % (Auto) Lymph % (Auto) [place] % (Auto) Eos % (Auto) Baso % (Auto) Neut # (Auto) Lymph # (Auto) [place] # (Auto) Eos # (Auto) Baso # (Auto) WBC Differential Seg Neuts % (Manual) Lymphocytes % (Manual) Monocytes % (Manual) Eosinophils % (Manual) Abs Neuts (Manual) Differential Comment Smudge Cells Platelet Estimate Platelet Morphology Sodium 138 Potassium 3.1 L Chloride 97 L Carbon Dioxide 32.2 H Anion Gap 9 BUN 93 H Creatinine 2.04 H Estimated GFR 32 L POC Glucose 68 109 Random Glucose 44 L* D Calcium 10.3 H Magnesium 2.1 Pleural RBC Pleural Nuc Cells Pleural Neutrophils Pleural Lymphocytes Pleural Monocytes Pleural Plasma Cells Pleural Histocytes Pleural Fluid Comment Pleural Total Protein Pleural LDH Pleural Glucose 07/12/18 08:04 WBC RBC Hgb Hct MCV MCH MCHC RDW Plt Count MPV Prelim Diff (Auto) Neut % (Auto) Lymph % (Auto) [place] % (Auto) Eos % (Auto) Baso % (Auto) Neut # (Auto) Lymph # (Auto) [place] # (Auto) Eos # (Auto) Baso # (Auto) WBC Differential Seg Neuts % (Manual) Lymphocytes % (Manual) Monocytes % (Manual) Eosinophils % (Manual) Abs Neuts (Manual) Differential Comment Smudge Cells Platelet Estimate Platelet Morphology Sodium Potassium Chloride Carbon Dioxide Anion Gap BUN Creatinine Estimated GFR POC Glucose 132 H Random Glucose Calcium Magnesium Pleural RBC Pleural Nuc Cells Pleural Neutrophils Pleural Lymphocytes Pleural Monocytes Pleural Plasma Cells Pleural Histocytes Pleural Fluid Comment Pleural Total Protein Pleural LDH Pleural Glucose Microbiology 07/11/18 09:36 Fluid - Pleural fluid Gram Stain - Final 07/11/18 09:36 Fluid - Pleural fluid Body Fluid Culture - Preliminary No growth in 24 hours - Imaging Impressions Thoracentesis Ultrasound 07/11/18 06:00 CONCLUSION: 1. Uncomplicated right thoracentesis. Assessment and Plan - Assessment (1) CHB (complete heart block) Code(s): I44.2 - Atrioventricular block, complete Status: Acute Plan: 1. CHB. junctional escape. ppm placed 07/07 2. CHF. preserved LVF. decompensated pleural effusion. mod right. small left. 3. SO 4. FEVER/Leukocytosis. pulmonary infiltrates. 5. Diabetes 6. HTN 7. chest pressure 8. hypokalemia - Pt had thoracentesis 07/11 with removal of 800ml fluid -Hold po bumex. cr improving. - Lasix 40 mg IV x 2 doses - recheck BMP in AM - CXR ordered - serial troponin and serial EKG -cont abx azithro per ID possible pna. rocephin stopped 07/08 -cont current bp medication -increase levemir to 15 units BID/ssi novolog -patient had episode of hypoglycemia blood glucose 44 this AM, will DC medium dose regular insulin sliding scale ( patient received 10 units HS 07/11) -start Novolog low dose SSI ACHS and 3AM -replaced potassium -PT daily. -wean oxygen. -pt - anticipate d/c in next 1-2 days. (2) CHF (congestive heart failure) Code(s): I50.9 - Heart failure, unspecified Status: Acute (3) Fever Code(s): R50.9 - Fever, unspecified Status: Acute (4) Acute kidney injury Code(s): N17.9 - Acute kidney failure, unspecified Status: Acute
[2018-07-12] MEDS: Insulin NovoLOG Aspart Correctional Sugar Inj SQ SCH ×3 (11:54→21:37)
--- NOTE | 2018-07-12 12:40 | XR ---
EXAM DATE: 07/12/2018 10:32 AM EDT AGE/SEX: 72 years / Male INDICATIONS: Short of breath CLINICAL DATA: This is the patient's subsequent encounter. Patient reports that signs and symptoms h ave been present for 4 - 6 days and indicates a pain score of 2/10. MEDICAL/SURGICAL HISTORY: Cardiovascular disease. Pacemaker. heart valve replacement, thoracent esis right chest COMPARISON: [facility] – [place], CHEST EXPIRATION ONLY, 07/11/2018. . FINDINGS: Pacer leads overlie right atrium and right ventricle. Previous sternotomy. Small effusions. Mild basi lar airspace disease. No pneumothorax. CONCLUSION: Mild basilar airspace disease with small effusions. Primary differential diagnosis is mild congestive heart failure. Pacer leads overlie right atrium and right ventricle. Electronically signed by: Walter Oscar MD 07/12/2018 12:39 PM EDT
[2018-07-12] MEDS ORDERED: Heparin 10,000 UNITS/10 ML Vial (for IV use) IV.PUSH STA (14:57)
[2018-07-12] MEDS ORDERED: Heparin Drip 25,000 UNIT/250 ML BAG IV.CONT PRN (14:57)
--- NOTE | 2018-07-12 15:50 | P.PNNP ---
Subjective Interval history: Sitting up in chair. at bedside. Creatinine is stable at 2.04 with good urinary output. Shortness of breath on exertion only. Edema improving. <Zuleika Vasquez - Last Filed: 07/12/18 15:41> Physical Exam Vital signs: Vital Signs 07/11/18 16:00 07/11/18 17:00 07/11/18 18:00 Temperature Pulse Rate 101 H 99 H 98 H Respiratory Rate Blood Pressure Pulse Oximetry 07/11/18 19:00 07/11/18 20:00 07/11/18 21:00 Temperature 98.4 F Pulse Rate 96 H 98 H 97 H Respiratory Rate 16 Blood Pressure 153/77 H Pulse Oximetry 97 07/11/18 22:00 07/11/18 23:00 07/12/18 00:00 Temperature 98.5 F Pulse Rate 97 H 100 H 98 H Respiratory Rate 16 Blood Pressure 139/72 Pulse Oximetry 97 07/12/18 01:00 07/12/18 02:00 07/12/18 03:00 Temperature 98.5 F Pulse Rate 98 H 98 H 100 H Respiratory Rate 16 Blood Pressure 123/63 Pulse Oximetry 97 07/12/18 04:00 07/12/18 05:00 07/12/18 06:00 Temperature Pulse Rate 98 H 91 H 95 H Respiratory Rate Blood Pressure Pulse Oximetry 07/12/18 07:00 07/12/18 08:00 07/12/18 09:00 Temperature 97.9 F Pulse Rate 96 H 87 87 Respiratory Rate 18 Blood Pressure 148/80 H Pulse Oximetry 98 07/12/18 10:00 07/12/18 11:00 07/12/18 12:00 Temperature 98.2 F Pulse Rate 71 66 70 Respiratory Rate 18 Blood Pressure 128/71 Pulse Oximetry 98 07/12/18 13:00 07/12/18 13:50 07/12/18 14:47 Temperature 98.0 F Pulse Rate 66 72 70 Respiratory Rate 18 Blood Pressure 119/57 L Pulse Oximetry 96 Intake & Output 07/11/18 07/12/18 07/12/18 18:59 06:59 18:59 Intake Total 420 / 420 480 / 480 Output Total 650 / 650 1040 / 1040 Balance -230 / -230 -560 / -560 Weight 88.5 kg Intake: Oral 420 / 420 480 / 480 Output: Urine 650 / 650 1040 / 1040 Narrative: GENERAL: Well-developed well-nourished. NAD. NECK: No carotid bruits. No JVD. CARDIOVASCULAR: Regular rate and rhythm. No murmur appreciated. Pacemaker in place on left chest wall with no swelling, ecchymosis, or tenderness. RESPIRATORY: No accessory muscle use. Clear to auscultation. Breath sounds equal bilaterally. MUSCULOSKELETAL: No clubbing or cyanosis. 1-2+ bilateral edema. NEUROLOGICAL: Awake and alert. Normal speech. <Zuleika Vasquez - Last Filed: 07/12/18 15:41> Vital signs: Vital Signs 07/13/18 18:00 07/13/18 18:19 07/13/18 18:49 Temperature 98 F Pulse Rate 67 68 Respiratory Rate 16 Blood Pressure 122/61 138/78 Pulse Oximetry 92 L 07/13/18 19:00 07/13/18 19:19 07/13/18 19:49 Temperature 97.8 F 98 F Pulse Rate 68 67 66 Respiratory Rate 24 18 24 Blood Pressure 141/73 H 113/56 L 122/81 Pulse Oximetry 98 98 96 07/13/18 20:00 07/13/18 20:49 07/13/18 21:00 Temperature Pulse Rate 68 69 75 Respiratory Rate 20 Blood Pressure 131/79 Pulse Oximetry 98 07/13/18 21:49 07/13/18 22:00 07/13/18 22:49 Temperature Pulse Rate 65 75 68 Respiratory Rate 18 20 Blood Pressure 124/56 L 131/78 Pulse Oximetry 99 98 07/13/18 23:00 07/13/18 23:49 07/14/18 00:00 Temperature 98 F Pulse Rate 71 65 68 Respiratory Rate 22 20 Blood Pressure 131/75 131/65 Pulse Oximetry 95 95 07/14/18 01:00 07/14/18 02:00 07/14/18 03:00 Temperature 97.8 F Pulse Rate 76 68 73 Respiratory Rate 22 Blood Pressure 131/70 Pulse Oximetry 95 07/14/18 03:18 07/14/18 04:00 07/14/18 05:00 Temperature Pulse Rate 65 70 61 Respiratory Rate Blood Pressure Pulse Oximetry 07/14/18 06:00 07/14/18 07:00 07/14/18 08:00 Temperature 97.9 F Pulse Rate 77 69 65 Respiratory Rate 14 Blood Pressure 146/74 H Pulse Oximetry 96 07/14/18 09:00 07/14/18 10:00 07/14/18 11:00 Temperature 98 F Pulse Rate 68 60 80 Respiratory Rate 18 Blood Pressure 128/60 Pulse Oximetry 98 07/14/18 12:00 07/14/18 13:00 07/14/18 14:00 Temperature Pulse Rate 67 60 60 Respiratory Rate Blood Pressure Pulse Oximetry 07/14/18 15:00 07/14/18 16:00 07/14/18 17:00 Temperature 98 F Pulse Rate 61 62 63 Respiratory Rate 16 Blood Pressure 119/68 Pulse Oximetry 96 07/14/18 17:41 Temperature Pulse Rate 60 Respiratory Rate Blood Pressure Pulse Oximetry Intake & Output 07/13/18 07/14/18 07/14/18 18:59 06:59 18:59 Intake Total 450 / 450 480 / 480 1330 / 1330 Output Total 850 / 850 535 / 535 Balance 449 / 449 -370 / -370 795 / 795 Weight 81.5 kg Intake: IV 250 / 250 Heparin/NS PF Inj 500 ML @ 0 10 / 10 mls/hr .ROUTE .[facility] Rx#: [id number] Oral 240 / 240 480 / 480 1080 / 1080 Anesthesia Amount 200 / 200 Output: Urine 850 / 850 535 / 535 Stool Other: # Voids 3 4 Date of Last Bowel Movement 07/13/18 07/13/18 # Bowel Movements 2 <Usha Acevedo Q - Last Filed: 07/14/18 17:59> Assessment and Plan - Assessment (1) Acute kidney injury Code(s): N17.9 - Acute kidney failure, unspecified Status: Acute Plan: Acute kidney injury with creatinine of 2.60 on day of consult. SO possibly ATN from decreased cardiac output/ third spacing/ infection History of chronic kidney disease with mild proteinuria possibly from diabetic or hypertensive renal disease. Baseline creatinine not available but creatinine noted to be 1.20 April 2011 Renal ultrasound with no evidence of stone, masses or hydronephrosis Plan Monitor strict I+O Renal function stable at 2.02 from 2.22, non oliguric Continue metolazone and Lasix tolerating well. Hypokalemia, replacement given Hypercalcemia, replacement discontinued. Avoid nephrotoxins including IV contrast and aminoglycosides. Follow the BMP and the urine out put. (2) Anemia Code(s): D64.9 - Anemia, unspecified Status: Acute Plan: Hemoglobin stable 9.7 Most likely from chronic disease (3) Complete heart block by electrocardiogram Code(s): I44.2 - Atrioventricular block, complete Status: Acute Plan: Pacemaker placement on 07/07 (4) Sepsis Code(s): A41.9 - Sepsis, unspecified organism Status: Acute Plan: ID consulted and cultures negative thus far On antibiotics for possible pneumonia <Zuleika Vasquez - Last Filed: 07/12/18 15:41> - Assessment (1) Acute kidney injury Code(s): N17.9 - Acute kidney failure, unspecified Status: Acute Plan: Patient seen and examined, agree with above. Continue Lasix and Metolazone. Creatinine is 2.0-2.2. (2) Anemia Code(s): D64.9 - Anemia, unspecified Status: Acute (3) Complete heart block by electrocardiogram Code(s): I44.2 - Atrioventricular block, complete Status: Acute (4) Sepsis Code(s): A41.9 - Sepsis, unspecified organism Status: Acute <Larry Acevedo - Last Filed: 07/14/18 17:59>
[2018-07-12 16:08] LABS: Magnesium 2.1 mg/dL (1.5-2.5); Potassium 4.1 meq/L (3.5-5.1)
[2018-07-12 16:12] LABS: Activated Partial Thrombo Time 24.5 sec (24.3-30.1); INR 1.1 Ratio; Prothrombin Time 10.8 sec (9.8-11.6)
[2018-07-12 16:32] LABS: Troponin I 4.24 ng/mL (0.02-0.05)
--- NOTE | 2018-07-12 17:41 | ECG ---
Date Performed: 07/12/2018 Time Performed: 11:14:34 PTAGE: 72 years EKG: Sinus arrhythmia with borderline 1st degree A-V block. Indeterminate axis Left bundle branc h block Possible anteroseptal infarct - age undetermined Possible lateral infarct - age undetermined Since the previous tracing, no significant change noted Abnormal ECG PREVIOUS TRACING : 07/08/2018 20.26 DOCTOR: Eric Campos Interpretating Date/Time 07/12/2018 18:11:16
--- NOTE | 2018-07-12 22:31 | ECG ---
Date Performed: 07/12/2018 Time Performed: 17:13:20 PTAGE: 72 years EKG: Sinus rhythm with borderline 1st degree A-V block. Leftward axis IV conduction defect Possible anteroseptal infar ct - age undetermined Abnormal ECG PREVIOUS TRACING : 07/12/2018 11.14 Since the previous tracing, no significant change noted DOCTOR: Alfred Erickson Interpretating Date/Time 07/12/2018 22:30:08
[2018-07-12 23:08] LABS: Carbon Dioxide 30.4 meq/L (21.0-32.0); Potassium 3.7 meq/L (3.5-5.1)
[2018-07-12 23:15] LABS: Troponin I 3.42 ng/mL (0.02-0.05)
[2018-07-13] MEDS: Insulin NovoLOG Aspart Correctional Sugar Inj SQ SCH ×5 (03:59→20:49)
[2018-07-13 04:15] LABS: Baso # (Auto) 0.2 th/mm3 (0.0-0.2); Baso % (Auto) 0.9 % (0.0-2.0); Eos # (Auto) 1.2 th/mm3 (0.0-0.4); Eos % (Auto) 6.3 % (0.0-4.0); Hematocrit 29.1 % (39.0-51.0); Hemoglobin 9.4 gm/dL (13.0-17.0); Lymph # (Auto) 6.4 th/mm3 (1.0-4.8); Lymph % (Auto) 33.9 % (9.0-44.0); Mean Corpuscular HGB Conc 32.2 % (32.0-36.0); Mean Corpuscular Hemoglobin 29.4 pg (27.0-34.0); Mean Corpuscular Volume 91.3 fL (80.0-100.0); Mean Platelet Volume 9.7 fL (7.0-11.0); Mono # (Auto) 1.7 th/mm3 (0.0-0.9); Mono % (Auto) 8.8 % (0.0-8.0); Neut # (Auto) 9.4 th/mm3 (1.8-7.7); Neut % (Auto) 50.1 % (16.0-70.0); Platelet Count 365 th/mm3 (150-450); Red Blood Count 3.19 mil/mm3 (4.50-5.90); Red Cell Distribution Width 15.8 % (11.6-17.2); White Blood Count 18.8 th/mm3 (4.0-11.0)
[2018-07-13 06:41] LABS: Eosinophils 8 % (0-4); Lymphocytes 35 % (9-44); Monocytes 13 % (0-8); Platelet Estimate Normal (Normal); Platelet Morphology Normal (Normal)
--- NOTE | 2018-07-13 08:28 | P.PNCA ---
Subjective Interval history: Patient had about 15 minutes of on and off chest pressure yesterday afternoon. Troponins are elevated. EKG shows left bundle branch block, similar to previous. Medications and Allergies Allergies Allergy/AdvReac Type Severity Reaction Status Date / Time [id number]-Row-Tai Reductase Allergy Severe muscle Verified 04/12/18 05:50 Inhibitor weakness atorvastatin Allergy Mild Verified 04/12/18 05:50 Home Medications Medication Instructions Recorded Confirmed Type amlodipine 10 mg PO DAILY 06/30/18 06/30/18 History aspirin 81 mg PO BID 06/30/18 07/02/18 History calcitriol 0.25 mcg PO DAILY 06/30/18 07/02/18 History cinnamon bark [Cinnamon] 1 cap PO BID 06/30/18 07/02/18 History coenzyme Q10 [CoQ-10] 100 mg PO DAILY 06/30/18 06/30/18 History diphenhydramine-acetaminophen 1 tab PO HS PRN 06/30/18 07/02/18 History [Tylenol PM Extra Strength] furosemide 40 mg PO BID 06/30/18 06/30/18 History glucosamine sulfate 1,000 mg PO BID 06/30/18 07/02/18 History insulin aspart U-100 [Novolog 5 unit SUB-Q AC BREAKFAST 06/30/18 06/30/18 History U-100 Insulin aspart] insulin aspart U-100 [Novolog 8 units SUB-Q AC DINNER 06/30/18 07/02/18 History U-100 Insulin aspart] insulin aspart U-100 [Novolog 8 units SUB-Q AC LUNCH 06/30/18 07/02/18 History U-100 Insulin aspart] insulin glargine [Lantus U-100 28 units SUB-Q HS 06/30/18 07/02/18 History Insulin] metformin 500 mg PO DAILY 06/30/18 07/02/18 History metoprolol tartrate 50 mg PO BID 06/30/18 06/30/18 History multivitamin 1 tab PO DAILY 06/30/18 07/02/18 History omega 7-hdo-hax-fish oil [Fish Oil] 1,200 mg PO BID 06/30/18 07/02/18 History spironolactone 25 mg PO DAILY 06/30/18 06/30/18 History Active Medications: Active Medications Acetaminophen (Tylenol) 650 mg PO Q6H PRN PRN Reason: TEMPERATURE > 100 F Last Admin: 07/01/18 22:08 Dose: 650 mg Acetaminophen (Tylenol) 650 mg PO Q4H PRN PRN Reason: PAIN SCALE 1 TO 2 Al Hydroxide/Mg Hydroxide (Milk Of [place]pet[place] Liq) 30 ml PO Q12H PRN PRN Reason: Mild Constipation Last Admin: 07/11/18 21:36 Dose: 30 ml Albuterol (Albuterol Neb (Prn)) 2.5 mg NEB Q2HR NEB PRN PRN Reason: DYSPNEA Aspirin (Ecotrin) 81 mg PO DAILY [facility] Last Admin: 07/12/18 08:27 Dose: 81 mg Atenolol (Tenormin) 100 mg PO DAILY [facility] Last Admin: 07/12/18 09:05 Dose: 50 mg Azithromycin (Zithromax) 500 mg PO DAILY [facility] Last Admin: 07/12/18 08:27 Dose: 500 mg Benzocaine/Menthol (Cepacol Max Strength) 1 lozenge BUCCAL Q2H PRN PRN Reason: SORE THROAT Last Admin: 07/04/18 08:43 Dose: 1 lozenge Benzonatate (Tessalon Perles) 100 mg PO Q8H PRN PRN Reason: COUGH Last Admin: 07/06/18 00:28 Dose: 100 mg Bisacodyl (Dulcolax Supp) 10 mg RECTAL DAILY PRN PRN Reason: SEVERE CONSITIPATION Last Admin: 07/09/18 20:49 Dose: 10 mg Dextrose (D50w Vial) 50 ml IV.PUSH UNSCH PRN PRN Reason: PER HYPOGLYCEMIA PROTOCOL Last Admin: 07/13/18 05:55 Dose: 50 ml Dextrose (D50w Vial) 50 ml IV.PUSH UNSCH PRN PRN Reason: PER HYPOGLYCEMIA PROTOCOL Glucagon (Glucagon Inj) 1 mg OTHER PRN PRN PRN Reason: for Hypoglycemia Protocol Glucagon (Glucagon Inj) 1 mg OTHER PRN PRN PRN Reason: for Hypoglycemia Protocol Heparin Sodium/Dextrose (Heparin/D5w 25,000 U/250 Ml) 25,000 unit in 250 mls @ 10 mls/hr IV.CONT TITRATE PRN; Protocol PRN Reason: Per Protocol Last Admin: 07/12/18 16:23 Dose: 1,000 units/hr, 10 mls/hr Insulin Aspart (Novolog Insulin Correctional Sugar Inj) 0 unit SQ ACHS AND 3AM GLENIS; Protocol Last Admin: 07/13/18 03:59 Dose: Not Given Insulin Detemir (Levemir Inj) 15 unit SQ BID [facility] Last Admin: 07/12/18 21:37 Dose: 15 unit Lactulose (Lactulose Liq) 30 ml PO DAILY PRN PRN Reason: SEVERE CONSITIPATION Magnesium Oxide (Mag-Ox) 800 mg PO UNSCH PRN PRN Reason: For Magnesium 1.2 - 1.6 mg/dL Metolazone (Zaroxolyn) 5 mg PO DAILY@0900,1800 [facility] Last Admin: 07/12/18 17:04 Dose: 5 mg Morphine Sulfate (Morphine Inj) 2 mg IV.PUSH Q2H PRN PRN Reason: PAIN SCALE 6 TO 10 Last Admin: 07/07/18 20:25 Dose: 2 mg Multivitamins (Theragran) 1 tab PO DAILY [facility] Last Admin: 07/12/18 08:27 Dose: 1 tab Ondansetron HCl (Zofran Inj) 4 mg IV.PUSH Q6H PRN PRN Reason: NAUSEA OR VOMITING Oxycodone HCl (Roxicodone) 5 mg PO Q4H PRN PRN Reason: Pain 1-5 Last Admin: 07/07/18 23:26 Dose: 5 mg Pantoprazole Sodium (Protonix) 40 mg PO DAILY [facility] Last Admin: 07/12/18 08:27 Dose: 40 mg Senna/Docusate Sodium (Amelia-Colace) 1 tab PO BID [facility] Last Admin: 07/12/18 21:37 Dose: 1 tab Sennosides (Senokot) 17.2 mg PO Q12H PRN PRN Reason: Moderate Constipation Last Admin: 07/09/18 14:32 Dose: 17.2 mg Sodium Chloride (Ns Flush) 2 ml IV.FLUSH BID [facility] Last Admin: 07/12/18 21:43 Dose: Not Given Sodium Chloride (Ns Flush) 2 ml IV.FLUSH PRN PRN PRN Reason: FLUSH AFTER USING IV ACCESS Last Admin: 07/06/18 17:21 Dose: 2 ml Zolpidem Tartrate (Ambien) 10 mg PO HS PRN PRN Reason: SLEEP Last Admin: 07/12/18 21:37 Dose: 10 mg Physical Exam Vital signs: Vital Signs 07/12/18 09:00 07/12/18 10:00 07/12/18 11:00 Temperature 98.2 F Pulse Rate 87 71 66 Respiratory Rate 18 Blood Pressure 128/71 Pulse Oximetry 98 07/12/18 12:00 07/12/18 13:00 07/12/18 13:50 Temperature Pulse Rate 70 66 72 Respiratory Rate Blood Pressure Pulse Oximetry 07/12/18 14:47 07/12/18 15:51 07/12/18 16:36 Temperature 98.0 F Pulse Rate 70 84 60 Respiratory Rate 18 Blood Pressure 119/57 L Pulse Oximetry 96 07/12/18 17:08 07/12/18 19:00 07/12/18 20:00 Temperature 98.0 F Pulse Rate 68 70 72 Respiratory Rate 18 Blood Pressure 126/65 Pulse Oximetry 96 07/12/18 21:00 07/12/18 22:00 07/12/18 23:00 Temperature 98.4 F Pulse Rate 70 68 68 Respiratory Rate 18 Blood Pressure 126/62 Pulse Oximetry 96 07/13/18 00:00 07/13/18 01:00 07/13/18 02:00 Temperature Pulse Rate 67 68 68 Respiratory Rate Blood Pressure Pulse Oximetry 07/13/18 03:00 07/13/18 04:00 07/13/18 05:00 Temperature 98.4 F Pulse Rate 67 68 67 Respiratory Rate 18 Blood Pressure 135/67 Pulse Oximetry 95 07/13/18 06:00 07/13/18 07:00 07/13/18 08:00 Temperature 97.1 F L Pulse Rate 67 68 67 Respiratory Rate 18 Blood Pressure 127/67 Pulse Oximetry 95 Intake & Output 07/12/18 07/13/18 07/13/18 18:59 06:59 18:59 Intake Total 600 / 600 480 / 480 Output Total 500 / 500 450 / 450 Balance 100 / 100 30 / 30 Weight 178 lb 9.191 oz Intake: Oral 600 / 600 480 / 480 Output: Urine 500 / 500 450 / 450 Other: Date of Last Bowel Movement 07/12/18 07/12/18 # Bowel Movements 1 Narrative: GENERAL: Well-developed well-nourished. NAD. NECK: No carotid bruits. No JVD. CARDIOVASCULAR: Regular rate and rhythm. No murmur appreciated. Pacemaker in place on left chest wall with no swelling, ecchymosis, or tenderness. RESPIRATORY: No accessory muscle use. Clear to auscultation. Breath sounds equal bilaterally. MUSCULOSKELETAL: No clubbing or cyanosis. 2+ bilateral edema. NEUROLOGICAL: Awake and alert. Normal speech. Results 07/13/18 02:32 07/12/18 22:06 Cardiac Enzymes 07/12/18 07/12/18 07/12/18 Range/Units 10:53 15:40 22:06 Troponin I 5.11 H* 4.24 H* 3.42 H* (0.02-0.05) ng/mL Coagulation 07/12/18 07/12/18 07/13/18 Range/Units 15:40 22:06 02:32 PT 10.8 (9.8-11.6) sec APTT 24.5 44.6 H D 40.0 H (24.3-30.1) sec CBC 07/12/18 07/13/18 Range/Units 03:02 02:32 WBC 18.3 H 18.8 H (4.0-11.0) th/mm3 RBC 3.23 L 3.19 L (4.50-5.90) mil/mm3 Hgb 9.7 L 9.4 L (13.0-17.0) gm/dL Hct 28.9 L 29.1 L (39.0-51.0) % Plt Count 415 365 (150-450) th/mm3 Neut # (Auto) 9.1 H 9.4 H (1.8-7.7) th/mm3 Lymph # (Auto) 6.6 H 6.4 H (1.0-4.8) th/mm3 [place] # (Auto) 1.9 H 1.7 H (0.0-0.9) th/mm3 Eos # (Auto) 0.6 H 1.2 H (0.0-0.4) th/mm3 Baso # (Auto) 0.1 0.2 (0.0-0.2) th/mm3 Comprehensive Metabolic Panel 07/12/18 07/12/18 07/12/18 Range/Units 03:02 15:40 22:06 Sodium 138 133 L (136-145) meq/L Potassium 3.1 L 4.1 D 3.7 (3.5-5.1) meq/L Chloride 97 L 94 L (98-107) meq/L Carbon Dioxide 32.2 H 30.4 (21.0-32.0) meq/L BUN 93 H 98 H (7-18) mg/dL Creatinine 2.04 H 2.24 H (0.60-1.30) mg/dL Calcium 10.3 H 10.0 (8.5-10.1) mg/dL Intake and Output 07/12/18 07/13/18 07/13/18 22:59 06:59 14:59 Intake Total 600 / 600 480 / 480 Output Total 500 / 500 450 / 450 Balance 100 / 100 30 / 30 Intake: Oral 600 / 600 480 / 480 Output: Urine 500 / 500 450 / 450 Other: Date of Last Bowel Movement 07/12/18 07/12/18 # Bowel Movements 1 Weight 178 lb 9.191 oz - Imaging and Cardiology Imaging: Impressions Chest X-Ray 07/11/18 00:00 CONCLUSION: 1. Significantly improved aeration of the right lung following thoracentesis without pneumothorax. 2. Improved aeration of the left lower lung zone with persistent mild patchy airspace disease and likely trace pleural effusion. Thoracentesis Ultrasound 07/11/18 06:00 CONCLUSION: 1. Uncomplicated right thoracentesis. Chest X-Ray 07/12/18 10:32 CONCLUSION: Mild basilar airspace disease with small effusions. Primary differential diagnosis is mild congestive heart failure. Pacer leads overlie right atrium and right ventricle. Assessment and Plan - Plan Assessment: Patient admitted as transfer from [facility] with CHB and junctional escape rhythm, hemodynamically stable in the setting of ADHF, fever, leukocytosis, and CKD stage 3. There was concern for possible bacterial endocarditis in this setting, however transthoracic echocardiogram and transesophageal echocardiogram did not reveal any valvular vegetations. LV systolic function is normal. Still with persistent hypervolemic state, plan for thoracentesis today. -CHB, with junctional escape rhythm, no s/p [employer] dual chamber PPM 07/07/18 -HFpEF -symptomatically improved past few days with aggressive diuresis and thoracentesis 07/11. -Anasarca with lower extremity edema and hypoalbuminemia -Chronic Leukocytosis, cultures negative to date, was cleared by ID for pacemaker, hematology consult appreciated. -CKD stage 3, with SO, stable -CAD, asymptomatic -Moderate aortic bioprosthesis stenosis on echo, normal EF -HTN - better controlled -NSTEMI - Trop 5.1->3.4 07/12 Recommendations: -s/p PPM 07/07/18 - no lifting with left arm -Nephrology following for SO on CKD -Continue home ASA 81mg daily -Continue diuresis -Discussed risk/benefits/alternatives of LHC later today, patient agreeable to proceed, n.p.o. after light breakfast today -will stop heparin gtt 90 min prior to LHC Discussed Condition With: Patient seen and examined with Dr. Santillan - Attending Attestation Patient seen and examined. Agree with above.
[2018-07-13] MEDS: Azithromycin 250 MG Tablet PO SCH (09:06)
[2018-07-13] MEDS: Atenolol 100 MG Tablet PO SCH (09:06)
[2018-07-13] MEDS: Senna/Docusate Sodium 8.6/50 MG Tablet PO SCH ×2 (09:06→20:48)
[2018-07-13] MEDS: metOLazone 5 MG Tablet PO SCH ×2 (09:15→20:48)
[2018-07-13] MEDS: Insulin Detemir Inj 1,000 UNIT/10 ML Vial SQ SCH ×2 (10:29→20:49)
[2018-07-13] MEDS ORDERED: Heparin/NS PF Inj 500 ML ONE (15:18)
[2018-07-13] MEDS ORDERED: fentaNYL Citrate Inj 100 MCG/2 ML Ampul ONE (15:22)
[2018-07-13] MEDS ORDERED: Heparin 10,000 UNITS/10 ML Vial (for IV use) ONE (15:22)
--- NOTE | 2018-07-13 16:30 | P.PNIM ---
Subjective Interval history: Follow up: CHB. junctional escape. ppm placed 07/07, 2. CHF. preserved LVF. decompensated pleural effusion. mod right. small left, chest pressure and DM Patient S/P cardiac catheterization today with stent to the LAD Patient reports feeling much better reports easier to breath Physical Exam Vital signs: Vital Signs 07/12/18 16:36 07/12/18 17:08 07/12/18 19:00 Temperature 98.0 F Pulse Rate 60 68 70 Respiratory Rate 18 Blood Pressure 126/65 Pulse Oximetry 96 07/12/18 20:00 07/12/18 21:00 07/12/18 22:00 Temperature Pulse Rate 72 70 68 Respiratory Rate Blood Pressure Pulse Oximetry 07/12/18 23:00 07/13/18 00:00 07/13/18 01:00 Temperature 98.4 F Pulse Rate 68 67 68 Respiratory Rate 18 Blood Pressure 126/62 Pulse Oximetry 96 07/13/18 02:00 07/13/18 03:00 07/13/18 04:00 Temperature 98.4 F Pulse Rate 68 67 68 Respiratory Rate 18 Blood Pressure 135/67 Pulse Oximetry 95 07/13/18 05:00 07/13/18 06:00 07/13/18 07:00 Temperature 97.1 F L Pulse Rate 67 67 68 Respiratory Rate 18 Blood Pressure 127/67 Pulse Oximetry 95 07/13/18 08:00 07/13/18 09:00 07/13/18 10:00 Temperature Pulse Rate 67 68 63 Respiratory Rate Blood Pressure Pulse Oximetry 07/13/18 11:00 07/13/18 12:00 Temperature 98 F Pulse Rate 67 67 Respiratory Rate 16 Blood Pressure 125/60 Pulse Oximetry 96 Intake & Output 07/12/18 07/13/18 07/13/18 18:59 06:59 18:59 Intake Total 600 / 600 480 / 480 Output Total 500 / 500 450 / 450 Balance 100 / 100 30 / 30 Weight 81 kg Intake: Oral 600 / 600 480 / 480 Output: Urine 500 / 500 450 / 450 Other: Date of Last Bowel Movement 07/12/18 07/13/18 # Bowel Movements 1 Narrative: GENERAL: Well-developed well-nourished. NAD. NECK: No carotid bruits. No JVD. CARDIOVASCULAR: Regular rate and rhythm. Pacemaker in place on left chest wall dressing dry and intact RESPIRATORY: No accessory muscle use. Clear to auscultation. MUSCULOSKELETAL: No clubbing or cyanosis. 1+ bilateral edema. NEUROLOGICAL: Awake and alert. Normal speech. Results - Labs CBC & Chem 7: 07/17/18 05:09 07/17/18 05:09 Laboratory Results - last 24 hr 07/12/18 07/12/18 07/12/18 15:40 16:38 20:12 WBC RBC Hgb Hct MCV MCH MCHC RDW Plt Count MPV Prelim Diff (Auto) Neut % (Auto) Lymph % (Auto) [place] % (Auto) Eos % (Auto) Baso % (Auto) Neut # (Auto) Lymph # (Auto) [place] # (Auto) Eos # (Auto) Baso # (Auto) WBC Differential Seg Neuts % (Manual) Lymphocytes % (Manual) Monocytes % (Manual) Eosinophils % (Manual) Basophils % (Manual) Abs Neuts (Manual) Differential Comment Platelet Estimate Platelet Morphology APTT Sodium Potassium Chloride Carbon Dioxide Anion Gap BUN Creatinine Estimated GFR POC Glucose 203 H 272 H Random Glucose Calcium Troponin I 4.24 H* 07/12/18 07/12/18 07/13/18 22:06 22:06 02:32 WBC 18.8 H RBC 3.19 L Hgb 9.4 L Hct 29.1 L MCV 91.3 MCH 29.4 MCHC 32.2 RDW 15.8 Plt Count 365 MPV 9.7 Prelim Diff (Auto) Slide review pending Neut % (Auto) 50.1 Lymph % (Auto) 33.9 [place] % (Auto) 8.8 H Eos % (Auto) 6.3 H Baso % (Auto) 0.9 Neut # (Auto) 9.4 H Lymph # (Auto) 6.4 H [place] # (Auto) 1.7 H Eos # (Auto) 1.2 H Baso # (Auto) 0.2 WBC Differential Manual diff final Seg Neuts % (Manual) 43 Lymphocytes % (Manual) 35 Monocytes % (Manual) 13 H Eosinophils % (Manual) 8 H Basophils % (Manual) 1 Abs Neuts (Manual) 8.1 H Differential Comment . Platelet Estimate Normal Platelet Morphology Normal APTT 44.6 H D Sodium 133 L Potassium 3.7 Chloride 94 L Carbon Dioxide 30.4 Anion Gap 9 BUN 98 H Creatinine 2.24 H Estimated GFR 29 L POC Glucose Random Glucose 268 H D Calcium 10.0 Troponin I 3.42 H* 07/13/18 07/13/18 07/13/18 02:32 03:20 05:50 WBC RBC Hgb Hct MCV MCH MCHC RDW Plt Count MPV Prelim Diff (Auto) Neut % (Auto) Lymph % (Auto) [place] % (Auto) Eos % (Auto) Baso % (Auto) Neut # (Auto) Lymph # (Auto) [place] # (Auto) Eos # (Auto) Baso # (Auto) WBC Differential Seg Neuts % (Manual) Lymphocytes % (Manual) Monocytes % (Manual) Eosinophils % (Manual) Basophils % (Manual) Abs Neuts (Manual) Differential Comment Platelet Estimate Platelet Morphology APTT 40.0 H Sodium Potassium Chloride Carbon Dioxide Anion Gap BUN Creatinine Estimated GFR POC Glucose 79 66 L Random Glucose Calcium Troponin I 07/13/18 07/13/18 07/13/18 06:17 07:39 11:29 WBC RBC Hgb Hct MCV MCH MCHC RDW Plt Count MPV Prelim Diff (Auto) Neut % (Auto) Lymph % (Auto) [place] % (Auto) Eos % (Auto) Baso % (Auto) Neut # (Auto) Lymph # (Auto) [place] # (Auto) Eos # (Auto) Baso # (Auto) WBC Differential Seg Neuts % (Manual) Lymphocytes % (Manual) Monocytes % (Manual) Eosinophils % (Manual) Basophils % (Manual) Abs Neuts (Manual) Differential Comment Platelet Estimate Platelet Morphology APTT Sodium Potassium Chloride Carbon Dioxide Anion Gap BUN Creatinine Estimated GFR POC Glucose 177 H 112 H 179 H Random Glucose Calcium Troponin I Microbiology 07/11/18 09:36 Fluid - Pleural fluid Gram Stain - Final 07/11/18 09:36 Fluid - Pleural fluid Body Fluid Culture - Preliminary Assessment and Plan - Assessment (1) CHB (complete heart block) Code(s): I44.2 - Atrioventricular block, complete Status: Acute Plan: 1. CHB. junctional escape. ppm placed 07/07 2. CHF. preserved LVF. decompensated pleural effusion. mod right. small left. 3. SO 4. FEVER/Leukocytosis. pulmonary infiltrates. 5. Diabetes 6. HTN 7. chest pressure 8. hypokalemia - Pt had thoracentesis 07/11 with removal of 800ml fluid -Hold po bumex. cr improving. - Lasix 40 mg IV x 2 doses 07/12 - continue metolazone - recheck BMP in AM - CXR 07/12 reviewed and reveals: Mild basilar airspace disease with small effusions. Primary differential diagnosis is mild congestive heart failure. Pacer leads overlie right atrium and right ventricle. -cont abx azithro per ID possible pna. rocephin stopped 07/08 -cont current bp medication -increase levemir to 15 units BID/ssi novolog -patient had episode of hypoglycemia blood glucose 44 07/12 AM, will DC medium dose regular insulin sliding scale ( patient received 10 units HS 07/11) -start Novolog low dose SSI ACHS and 3AM -replaced potassium -PT daily. -wean oxygen. -pt - 07/12 Initial troponin result 5.11, discussed with Dr. Santillan request heparin drip, continue to trend serial troponin and NPO after midnight - serial troponin 5.11, 4.24 and 3.42 - Patient S/P cardiac catheterization 07/[address] Elmore 1. Severe single-vessel coronary artery disease involving the proximal left anterior descending coronary artery 2. Successful percutaneous coronary intervention with drug-eluting stent to the proximal left anterior descending coronary artery - check ABIs Plan to DC tomorrow if patient remains stable (2) CHF (congestive heart failure) Code(s): I50.9 - Heart failure, unspecified Status: Acute (3) Fever Code(s): R50.9 - Fever, unspecified Status: Acute (4) Acute kidney injury Code(s): N17.9 - Acute kidney failure, unspecified Status: Acute
[2018-07-13] MEDS ORDERED: Misc Info for Pharmacy OTHER STA (17:04)
--- NOTE | 2018-07-13 17:15 | P.PCN ---
Date of procedure: 07/13/18 Pre-op diagnosis: Non-ST elevation myocardial infarction Procedure: Total amount of contrast administered: 1. 25 cc total amount Procedures performed: 1. Fluoroscopy interpretation 2. Coronary angiography 3. Percutaneous coronary intervention with drug-eluting stent to the proximal left anterior descending coronary artery Methods: Risk, benefits, alternatives were discussed with the patient patient understood and consented to the procedure. Patient was brought into the catheterization lab place a guide position table. Right wrist was prepped and draped in sterile fashion right wrist was anesthetized with 2% lidocaine. Right radial artery was cannulated and a 6 [place] 11 cm sheath was placed without difficulty. 200 mcg of intra-arterial nitroglycerin was administered. 5000 units of intravenous heparin was administered. Coronary angiography: Left coronary circulation was selectively engaged with a 6 [place] JL 3.5 diagnostic catheter. Right coronary circulation was selectively engaged with a 6 [place] JR 5 catheter. Angiography findings are as follows. 1. Left main coronary is angiographically normal. 2. Left anterior descending coronary artery has a 90% stenosis in the proximal segment right after the bifurcation of what looks to be a large diagonal branch. Remainder left anterior descending coronary has mild luminal irregularities. The diagonal branch has minor luminal irregularities 3. Left circumflex coronary gives rise to a first obtuse marginal branch which has only mild luminal irregularities. 4. The right coronary artery is a dominant vessel giving rise to the posterior descending branch. The right coronary artery has mild to moderate calcific disease in the proximal to mid segment the posterior descending branch also has mild luminal irregularities. Percutaneous coronary intervention: Left coronary circulation was selectively engaged with a 6 [place] XB 3.5 guide catheter. A 0.014 inch 280 cm [employer] run through wire was advanced onto the distal left anterior descending coronary artery without difficulty. A 3.0 x 18 mm Medtronic resolute [place] stent was advanced to the proximal left anterior descending coronary artery and deployed. Gentle balloon angioplasty was performed at the very proximal left anterior descending coronary right at the bifurcation of the high diagonal branch. Repeat angiography showed no residual stenosis with LAURO-3 flow. Patient tolerated the procedure well without any tang-or postprocedural complications. Conclusions: 1. Severe single-vessel coronary artery disease involving the proximal left anterior descending coronary artery 2. Successful percutaneous coronary intervention with drug-eluting stent to the proximal left anterior descending coronary artery Plan: Minimal amount of contrast was administered for the procedure. I do not anticipate contrast nephropathy related to this procedure given the 25 cc contrast total administration. Patient will need to be continued on aspirin, Plavix, and beta-blayne. Patient is intolerant to statin therapy. Will monitor closely for any postprocedural complications and anticipate discharge planning in the near 1-2 days.
--- NOTE | 2018-07-13 21:46 | P.PNNP ---
Subjective Interval history: Patient seen in AM, breathing is better, no chest pain. Physical Exam Vital signs: Vital Signs 07/12/18 22:00 07/12/18 23:00 07/13/18 00:00 Temperature 98.4 F Pulse Rate 68 68 67 Respiratory Rate 18 Blood Pressure 126/62 Pulse Oximetry 96 07/13/18 01:00 07/13/18 02:00 07/13/18 03:00 Temperature 98.4 F Pulse Rate 68 68 67 Respiratory Rate 18 Blood Pressure 135/67 Pulse Oximetry 95 07/13/18 04:00 07/13/18 05:00 07/13/18 06:00 Temperature Pulse Rate 68 67 67 Respiratory Rate Blood Pressure Pulse Oximetry 07/13/18 07:00 07/13/18 08:00 07/13/18 09:00 Temperature 97.1 F L Pulse Rate 68 67 68 Respiratory Rate 18 Blood Pressure 127/67 Pulse Oximetry 95 07/13/18 10:00 07/13/18 11:00 07/13/18 12:00 Temperature 98 F Pulse Rate 63 67 67 Respiratory Rate 16 Blood Pressure 125/60 Pulse Oximetry 96 07/13/18 15:00 07/13/18 17:00 07/13/18 17:04 Temperature 98.3 F 98 F Pulse Rate 63 61 65 Respiratory Rate 16 16 Blood Pressure 130/75 126/70 Pulse Oximetry 92 L 07/13/18 17:19 07/13/18 17:34 07/13/18 17:49 Temperature 98.5 F Pulse Rate 66 67 Respiratory Rate 16 16 Blood Pressure 124/65 131/77 133/75 Pulse Oximetry 94 L 07/13/18 18:00 07/13/18 18:19 07/13/18 18:49 Temperature 98 F Pulse Rate 67 68 Respiratory Rate 16 Blood Pressure 122/61 138/78 Pulse Oximetry 92 L 07/13/18 19:00 07/13/18 19:19 07/13/18 19:49 Temperature 97.8 F 98 F Pulse Rate 68 67 66 Respiratory Rate 24 18 24 Blood Pressure 141/73 H 113/56 L 122/81 Pulse Oximetry 98 98 96 Intake & Output 07/13/18 07/13/18 07/14/18 06:59 18:59 06:59 Intake Total 480 / 480 450 / 450 Output Total 450 / 450 1 / 1 Balance 30 / 30 449 / 449 Weight 81 kg Intake: IV 10 / 10 Heparin/NS PF Inj 500 ML @ 0 10 / 10 mls/hr .ROUTE .[facility] Rx#: [id number] Oral 480 / 480 240 / 240 Anesthesia Amount 200 / 200 Output: Urine 450 / 450 Stool Other: # Voids 3 Date of Last Bowel Movement 07/13/18 07/13/18 Narrative: GENERAL: Well-developed well-nourished. NAD. NECK: No carotid bruits. No JVD. CARDIOVASCULAR: Regular rate and rhythm. Pacemaker in place on left chest wall dressing dry and intact RESPIRATORY: No accessory muscle use. Clear to auscultation. MUSCULOSKELETAL: No clubbing or cyanosis. 1+ bilateral edema. NEUROLOGICAL: Awake and alert. Normal speech. Assessment and Plan - Assessment (1) Acute kidney injury Code(s): N17.9 - Acute kidney failure, unspecified Status: Acute Plan: Acute kidney injury with creatinine of 2.60 on day of consult. SO possibly ATN from decreased cardiac output/ third spacing/ infection History of chronic kidney disease with mild proteinuria possibly from diabetic or hypertensive renal disease. Baseline creatinine not available but creatinine noted to be 1.20 April 2011 Renal ultrasound with no evidence of stone, masses or hydronephrosis Plan Monitor strict I+O Renal function stable at 2.02 from 2.22, non oliguric Continue metolazone and Lasix tolerating well. Hypokalemia, replacement given Hypercalcemia, replacement discontinued. Avoid nephrotoxins including IV contrast and aminoglycosides. Follow the BMP and the urine out put. Continue diuretics. For cardiac Cath today with minimal Contrast. (2) Anemia Code(s): D64.9 - Anemia, unspecified Status: Acute Plan: Hemoglobin stable 9.7 Most likely from chronic disease (3) Complete heart block by electrocardiogram Code(s): I44.2 - Atrioventricular block, complete Status: Acute Plan: Pacemaker placement on 07/07 (4) Sepsis Code(s): A41.9 - Sepsis, unspecified organism Status: Acute Plan: ID consulted and cultures negative thus far On antibiotics for possible pneumonia
[2018-07-14] MEDS: Insulin NovoLOG Aspart Correctional Sugar Inj SQ SCH ×5 (03:24→20:19)
[2018-07-14 05:03] LABS: Baso # (Auto) 0.1 th/mm3 (0.0-0.2); Baso % (Auto) 0.9 % (0.0-2.0); Eos # (Auto) 0.4 th/mm3 (0.0-0.4); Eos % (Auto) 2.7 % (0.0-4.0); Hematocrit 30.9 % (39.0-51.0); Hemoglobin 10.3 gm/dL (13.0-17.0); Lymph # (Auto) 3.6 th/mm3 (1.0-4.8); Lymph % (Auto) 23.9 % (9.0-44.0); Mean Corpuscular HGB Conc 33.2 % (32.0-36.0); Mean Corpuscular Hemoglobin 29.7 pg (27.0-34.0); Mean Corpuscular Volume 89.3 fL (80.0-100.0); Mean Platelet Volume 9.7 fL (7.0-11.0); Mono # (Auto) 1.2 th/mm3 (0.0-0.9); Mono % (Auto) 8.1 % (0.0-8.0); Neut # (Auto) 9.8 th/mm3 (1.8-7.7); Neut % (Auto) 64.4 % (16.0-70.0); Platelet Count 348 th/mm3 (150-450); Red Blood Count 3.46 mil/mm3 (4.50-5.90); Red Cell Distribution Width 15.9 % (11.6-17.2); White Blood Count 15.2 th/mm3 (4.0-11.0)
[2018-07-14 05:43] LABS: Calcium 9.5 mg/dL (8.5-10.1); Carbon Dioxide 29.9 meq/L (21.0-32.0); Chol/HDL Ratio 4.55 Ratio; Potassium 3.7 meq/L (3.5-5.1)
--- NOTE | 2018-07-14 07:54 | P.PNCA ---
Subjective Interval history: No further chest pain or pressure. Feels like he is breathing better. He is able to sleep lying nearly flat overnight slight elevation in head of bed. No issues with right wrist access site. Reports myalgias with statins in the past. Medications and Allergies Allergies Allergy/AdvReac Type Severity Reaction Status Date / Time [id number] Reductase Allergy Severe muscle Verified 04/12/18 05:50 Inhibitor weakness atorvastatin Allergy Mild Verified 04/12/18 05:50 Home Medications Medication Instructions Recorded Confirmed Type amlodipine 10 mg PO DAILY 06/30/18 06/30/18 History aspirin 81 mg PO BID 06/30/18 07/02/18 History calcitriol 0.25 mcg PO DAILY 06/30/18 07/02/18 History cinnamon bark [Cinnamon] 1 cap PO BID 06/30/18 07/02/18 History coenzyme Q10 [CoQ-10] 100 mg PO DAILY 06/30/18 06/30/18 History diphenhydramine-acetaminophen 1 tab PO HS PRN 06/30/18 07/02/18 History [Tylenol PM Extra Strength] furosemide 40 mg PO BID 06/30/18 06/30/18 History glucosamine sulfate 1,000 mg PO BID 06/30/18 07/02/18 History insulin aspart U-100 [Novolog 5 unit SUB-Q AC BREAKFAST 06/30/18 06/30/18 History U-100 Insulin aspart] insulin aspart U-100 [Novolog 8 units SUB-Q AC DINNER 06/30/18 07/02/18 History U-100 Insulin aspart] insulin aspart U-100 [Novolog 8 units SUB-Q AC LUNCH 06/30/18 07/02/18 History U-100 Insulin aspart] insulin glargine [Lantus U-100 28 units SUB-Q HS 06/30/18 07/02/18 History Insulin] metformin 500 mg PO DAILY 06/30/18 07/02/18 History metoprolol tartrate 50 mg PO BID 06/30/18 06/30/18 History multivitamin 1 tab PO DAILY 06/30/18 07/02/18 History omega 5-mlo-zrw-fish oil [Fish Oil] 1,200 mg PO BID 06/30/18 07/02/18 History spironolactone 25 mg PO DAILY 09/13/18 09/13/18 History Active Medications: Active Medications Acetaminophen (Tylenol) 650 mg PO Q6H PRN PRN Reason: TEMPERATURE > 100 F Last Admin: 07/01/18 22:08 Dose: 650 mg Acetaminophen (Tylenol) 650 mg PO Q4H PRN PRN Reason: PAIN SCALE 1 TO 2 Al Hydroxide/Mg Hydroxide (Milk Of Magnpete Liq) 30 ml PO Q12H PRN PRN Reason: Mild Constipation Last Admin: 07/11/18 21:36 Dose: 30 ml Albuterol (Albuterol Neb (Prn)) 2.5 mg NEB Q2HR NEB PRN PRN Reason: DYSPNEA Aspirin (Ecotrin) 81 mg PO DAILY [facility] Last Admin: 07/13/18 09:05 Dose: 81 mg Atenolol (Tenormin) 100 mg PO DAILY [facility] Last Admin: 07/13/18 09:06 Dose: 100 mg Azithromycin (Zithromax) 500 mg PO DAILY [facility] Last Admin: 07/13/18 09:06 Dose: 500 mg Benzocaine/Menthol (Cepacol Max Strength) 1 lozenge BUCCAL Q2H PRN PRN Reason: SORE THROAT Last Admin: 07/04/18 08:43 Dose: 1 lozenge Benzonatate (Tessalon Perles) 100 mg PO Q8H PRN PRN Reason: COUGH Last Admin: 07/06/18 00:28 Dose: 100 mg Bisacodyl (Dulcolax Supp) 10 mg RECTAL DAILY PRN PRN Reason: SEVERE CONSITIPATION Last Admin: 07/09/18 20:49 Dose: 10 mg Clopidogrel Bisulfate (Plavix) 75 mg PO DAILY [facility] Dextrose (D50w Vial) 50 ml IV.PUSH UNSCH PRN PRN Reason: PER HYPOGLYCEMIA PROTOCOL Last Admin: 07/13/18 05:55 Dose: 50 ml Dextrose (D50w Vial) 50 ml IV.PUSH UNSCH PRN PRN Reason: PER HYPOGLYCEMIA PROTOCOL Glucagon (Glucagon Inj) 1 mg OTHER PRN PRN PRN Reason: for Hypoglycemia Protocol Glucagon (Glucagon Inj) 1 mg OTHER PRN PRN PRN Reason: for Hypoglycemia Protocol Insulin Aspart (Novolog Insulin Correctional Sugar Inj) 0 unit SQ ACHS AND 3AM [facility]; Protocol Last Admin: 07/14/18 03:24 Dose: 1 unit Insulin Detemir (Levemir Inj) 15 unit SQ BID [facility] Last Admin: 07/13/18 20:49 Dose: 15 unit Lactulose (Lactulose Liq) 30 ml PO DAILY PRN PRN Reason: SEVERE CONSITIPATION Magnesium Oxide (Mag-Ox) 800 mg PO UNSCH PRN PRN Reason: For Magnesium 1.2 - 1.6 mg/dL Metolazone (Zaroxolyn) 5 mg PO DAILY@0900,1800 [facility] Last Admin: 07/13/18 20:48 Dose: 5 mg Morphine Sulfate (Morphine Inj) 2 mg IV.PUSH Q2H PRN PRN Reason: PAIN SCALE 6 TO 10 Last Admin: 07/07/18 20:25 Dose: 2 mg Multivitamins (Theragran) 1 tab PO DAILY [facility] Last Admin: 07/13/18 09:06 Dose: 1 tab Ondansetron HCl (Zofran Inj) 4 mg IV.PUSH Q6H PRN PRN Reason: NAUSEA OR VOMITING Oxycodone HCl (Roxicodone) 5 mg PO Q4H PRN PRN Reason: Pain 1-5 Last Admin: 07/07/18 23:26 Dose: 5 mg Pantoprazole Sodium (Protonix) 40 mg PO DAILY [facility] Last Admin: 07/13/18 09:16 Dose: 40 mg Senna/Docusate Sodium (Amelia-Colace) 1 tab PO BID [facility] Last Admin: 07/13/18 20:48 Dose: 1 tab Sennosides (Senokot) 17.2 mg PO Q12H PRN PRN Reason: Moderate Constipation Last Admin: 07/09/18 14:32 Dose: 17.2 mg Sodium Chloride (Ns Flush) 2 ml IV.FLUSH BID [facility] Last Admin: 07/13/18 22:08 Dose: Not Given Sodium Chloride (Ns Flush) 2 ml IV.FLUSH PRN PRN PRN Reason: FLUSH AFTER USING IV ACCESS Last Admin: 07/06/18 17:21 Dose: 2 ml Sodium Chloride (Ns Flush) 2 ml IV.FLUSH BID [facility] Last Admin: 07/13/18 22:08 Dose: 2 ml Sodium Chloride (Ns Flush) 2 ml IV.FLUSH PRN PRN PRN Reason: FLUSH AFTER USING IV ACCESS Zolpidem Tartrate (Ambien) 10 mg PO HS PRN PRN Reason: SLEEP Last Admin: 07/13/18 22:13 Dose: 10 mg Physical Exam Vital signs: Vital Signs 07/13/18 08:00 07/13/18 09:00 07/13/18 10:00 Temperature Pulse Rate 67 68 63 Respiratory Rate Blood Pressure Pulse Oximetry 07/13/18 11:00 07/13/18 12:00 07/13/18 15:00 Temperature 98 F 98.3 F Pulse Rate 67 67 63 Respiratory Rate 16 16 Blood Pressure 125/60 130/75 Pulse Oximetry 96 92 L 07/13/18 17:00 07/13/18 17:04 07/13/18 17:19 Temperature 98 F 98.5 F Pulse Rate 61 65 66 Respiratory Rate 16 16 Blood Pressure 126/70 124/65 Pulse Oximetry 94 L 07/13/18 17:34 07/13/18 17:49 07/13/18 18:00 Temperature Pulse Rate 67 67 Respiratory Rate 16 Blood Pressure 131/77 133/75 Pulse Oximetry 07/13/18 18:19 07/13/18 18:49 07/13/18 19:00 Temperature 98 F 97.8 F Pulse Rate 68 68 Respiratory Rate 16 24 Blood Pressure 122/61 138/78 141/73 H Pulse Oximetry 92 L 98 07/13/18 19:19 07/13/18 19:49 07/13/18 20:00 Temperature 98 F Pulse Rate 67 66 68 Respiratory Rate 18 24 Blood Pressure 113/56 L 122/81 Pulse Oximetry 98 96 07/13/18 20:49 07/13/18 21:00 07/13/18 21:49 Temperature Pulse Rate 69 75 65 Respiratory Rate 20 18 Blood Pressure 131/79 124/56 L Pulse Oximetry 98 99 07/13/18 22:00 07/13/18 22:49 07/13/18 23:00 Temperature 98 F Pulse Rate 75 68 71 Respiratory Rate 20 22 Blood Pressure 131/78 131/75 Pulse Oximetry 98 95 07/13/18 23:49 07/14/18 00:00 07/14/18 01:00 Temperature Pulse Rate 65 68 76 Respiratory Rate 20 Blood Pressure 131/65 Pulse Oximetry 95 07/14/18 02:00 07/14/18 03:00 07/14/18 03:18 Temperature 97.8 F Pulse Rate 68 73 65 Respiratory Rate 22 Blood Pressure 131/70 Pulse Oximetry 95 07/14/18 04:00 07/14/18 05:00 07/14/18 06:00 Temperature Pulse Rate 70 61 77 Respiratory Rate Blood Pressure Pulse Oximetry Intake & Output 07/13/18 07/14/18 07/14/18 18:59 06:59 18:59 Intake Total 450 / 450 480 / 480 Output Total 850 / 850 Balance 449 / 449 -370 / -370 Weight 179 lb 10.828 oz Intake: IV 10 / 10 Heparin/NS PF Inj 500 ML @ 0 10 / 10 mls/hr .ROUTE .[facility] Rx#: [id number] Oral 240 / 240 480 / 480 Anesthesia Amount 200 / 200 Output: Urine 850 / 850 Stool Other: # Voids 3 4 Date of Last Bowel Movement 07/13/18 07/13/18 # Bowel Movements 2 Narrative: GENERAL: Well-developed well-nourished. NAD. NECK: No carotid bruits. No JVD. CARDIOVASCULAR: Regular rate and rhythm. Pacemaker in place on left chest wall dressing dry and intact RESPIRATORY: No accessory muscle use. Clear to auscultation. MUSCULOSKELETAL: No clubbing or cyanosis. 1+ bilateral edema. Right radial and ulnar pulses intact. NEUROLOGICAL: Awake and alert. Normal speech. Results 07/14/18 03:34 07/14/18 03:34 Cardiac Enzymes 07/12/18 07/12/18 07/12/18 Range/Units 10:53 15:40 22:06 Troponin I 5.11 H* 4.24 H* 3.42 H* (0.02-0.05) ng/mL Coagulation 07/12/18 07/12/18 07/13/18 Range/Units 15:40 22:06 02:32 PT 10.8 (9.8-11.6) sec APTT 24.5 44.6 H D 40.0 H (24.3-30.1) sec 07/14/18 Range/Units 03:34 PT (9.8-11.6) sec APTT 28.0 D (24.3-30.1) sec Lipids 07/14/18 Range/Units 03:34 Triglycerides 191 H (42-150) mg/dL Cholesterol 155 (120-200) mg/dL HDL Cholesterol 34.0 L (40.0-60.0) mg/dL Cholesterol/HDL Ratio 4.55 Ratio CBC 07/13/18 07/14/18 Range/Units 02:32 03:34 WBC 18.8 H 15.2 H (4.0-11.0) th/mm3 RBC 3.19 L 3.46 L (4.50-5.90) mil/mm3 Hgb 9.4 L 10.3 L (13.0-17.0) gm/dL Hct 29.1 L 30.9 L (39.0-51.0) % Plt Count 365 348 (150-450) th/mm3 Neut # (Auto) 9.4 H 9.8 H (1.8-7.7) th/mm3 Lymph # (Auto) 6.4 H 3.6 (1.0-4.8) th/mm3 Barnes # (Auto) 1.7 H 1.2 H (0.0-0.9) th/mm3 Eos # (Auto) 1.2 H 0.4 (0.0-0.4) th/mm3 Baso # (Auto) 0.2 0.1 (0.0-0.2) th/mm3 Comprehensive Metabolic Panel 07/12/18 07/12/18 07/14/18 Range/Units 15:40 22:06 03:34 Sodium 133 L 135 L (136-145) meq/L Potassium 4.1 D 3.7 3.7 (3.5-5.1) meq/L Chloride 94 L 95 L (98-107) meq/L Carbon Dioxide 30.4 29.9 (21.0-32.0) meq/L BUN 98 H 102 H (7-18) mg/dL Creatinine 2.24 H 2.34 H (0.60-1.30) mg/dL Calcium 10.0 9.5 (8.5-10.1) mg/dL Intake and Output 07/13/18 07/14/18 07/14/18 22:59 06:59 14:59 Intake Total 450 / 450 480 / 480 Output Total 850 / 850 Balance 449 / 449 -370 / -370 Intake: IV 10 / 10 Heparin/NS PF Inj 500 ML @ 0 10 / 10 mls/hr .ROUTE .[facility] Rx#: [id number] Oral 240 / 240 480 / 480 Anesthesia Amount 200 / 200 Output: Urine 850 / 850 Stool Other: # Voids 3 4 Date of Last Bowel Movement 07/13/18 07/13/18 # Bowel Movements 2 Weight 179 lb 10.828 oz - Imaging and Cardiology Imaging: Impressions Chest X-Ray 07/12/18 10:32 CONCLUSION: Mild basilar airspace disease with small effusions. Primary differential diagnosis is mild congestive heart failure. Pacer leads overlie right atrium and right ventricle. Assessment and Plan - Plan Assessment: Patient admitted as transfer from [facility] with CHB and junctional escape rhythm, hemodynamically stable in the setting of ADHF, fever, leukocytosis, and CKD stage 3. There was concern for possible bacterial endocarditis in this setting, however transthoracic echocardiogram and transesophageal echocardiogram did not reveal any valvular vegetations. LV systolic function is normal. Still with persistent LE edema. -CHB, with junctional escape rhythm, no s/p Medtr[employer] dual chamber PPM 07/07/18 -HFpEF -symptomatically improved past few days with aggressive diuresis and thoracentesis 07/11. -Anasarca with lower extremity edema and hypoalbuminemia -Chronic Leukocytosis, cultures negative to date, was cleared by ID for pacemaker, hematology consult appreciated. -CKD stage 3, with SO, stable -CAD, asymptomatic -Moderate aortic bioprosthesis stenosis on echo, normal EF -HTN - better controlled -NSTEMI 07/12 s/p PCI to LAD lesion 07/13 Recommendations: -s/p PPM 07/07/18 - no lifting with left arm -Nephrology following for SO on CKD -Continue home ASA 81mg daily, and Plavix 75mg daily (DAPT) uninterrupted for minimum of 1 year. -Continue atenolol 100mg daily -Continue diuresis Discussed Condition With: Patient with RN at bedside - Attending Attestation Patient seen and examined. Agree with above.
[2018-07-14] MEDS: Atenolol 100 MG Tablet PO SCH (09:09)
[2018-07-14] MEDS: Azithromycin 250 MG Tablet PO SCH (09:09)
[2018-07-14] MEDS: Insulin Detemir Inj 1,000 UNIT/10 ML Vial SQ SCH ×2 (09:10→20:20)
[2018-07-14] MEDS: Senna/Docusate Sodium 8.6/50 MG Tablet PO SCH ×2 (09:10→20:20)
[2018-07-14] MEDS: metOLazone 5 MG Tablet PO SCH ×2 (09:11→09:59)
--- NOTE | 2018-07-14 10:29 | P.PNONC ---
Subjective Interval history: Afebrile. Patient sitting in chair in room He reports he is breathing better today, he is status post stent placement to his LAD yesterday. Denies any pain. Does report continued cough. Discussed his blood counts and flow cytometry results. Objective Vital Signs/Intake & Output: Vital Signs 07/13/18 11:00 07/13/18 12:00 07/13/18 15:00 Temperature 98 F 98.3 F Pulse Rate 67 67 63 Respiratory Rate 16 16 Blood Pressure 125/60 130/75 Pulse Oximetry 96 92 L 07/13/18 17:00 07/13/18 17:04 07/13/18 17:19 Temperature 98 F 98.5 F Pulse Rate 61 65 66 Respiratory Rate 16 16 Blood Pressure 126/70 124/65 Pulse Oximetry 94 L 07/13/18 17:34 07/13/18 17:49 07/13/18 18:00 Temperature Pulse Rate 67 67 Respiratory Rate 16 Blood Pressure 131/77 133/75 Pulse Oximetry 07/13/18 18:19 07/13/18 18:49 07/13/18 19:00 Temperature 98 F 97.8 F Pulse Rate 68 68 Respiratory Rate 16 24 Blood Pressure 122/61 138/78 141/73 H Pulse Oximetry 92 L 98 07/13/18 19:19 07/13/18 19:49 07/13/18 20:00 Temperature 98 F Pulse Rate 67 66 68 Respiratory Rate 18 24 Blood Pressure 113/56 L 122/81 Pulse Oximetry 98 96 07/13/18 20:49 07/13/18 21:00 07/13/18 21:49 Temperature Pulse Rate 69 75 65 Respiratory Rate 20 18 Blood Pressure 131/79 124/56 L Pulse Oximetry 98 99 07/13/18 22:00 07/13/18 22:49 07/13/18 23:00 Temperature 98 F Pulse Rate 75 68 71 Respiratory Rate 20 22 Blood Pressure 131/78 131/75 Pulse Oximetry 98 95 07/13/18 23:49 07/14/18 00:00 07/14/18 01:00 Temperature Pulse Rate 65 68 76 Respiratory Rate 20 Blood Pressure 131/65 Pulse Oximetry 95 07/14/18 02:00 07/14/18 03:00 07/14/18 03:18 Temperature 97.8 F Pulse Rate 68 73 65 Respiratory Rate 22 Blood Pressure 131/70 Pulse Oximetry 95 07/14/18 04:00 07/14/18 05:00 07/14/18 06:00 Temperature Pulse Rate 70 61 77 Respiratory Rate Blood Pressure Pulse Oximetry Intake & Output 07/13/18 07/14/18 07/14/18 18:59 06:59 18:59 Intake Total 450 / 450 480 / 480 250 / 250 Output Total 850 / 850 Balance 449 / 449 -370 / -370 250 / 250 Weight 81.5 kg Intake: IV 10 / 10 250 / 250 Heparin/NS PF Inj 500 ML @ 0 10 / 10 mls/hr .ROUTE .[facility] Rx#: [id number] Oral 240 / 240 480 / 480 Anesthesia Amount 200 / 200 Output: Urine 850 / 850 Stool Other: # Voids 3 4 Date of Last Bowel Movement 07/13/18 07/13/18 # Bowel Movements 2 Result Diagrams: 07/14/18 03:34 07/14/18 03:34 Laboratory Results: Laboratory Results - last 24 hr 07/13/18 07/13/18 07/13/18 11:29 16:59 19:14 WBC RBC Hgb Hct MCV MCH MCHC RDW Plt Count MPV Neut % (Auto) Lymph % (Auto) Crane % (Auto) Eos % (Auto) Baso % (Auto) Neut # (Auto) Lymph # (Auto) Crane # (Auto) Eos # (Auto) Baso # (Auto) WBC Differential Differential Comment APTT Sodium Potassium Chloride Carbon Dioxide Anion Gap BUN Creatinine Estimated GFR POC Glucose 179 H 90 155 H Random Glucose Calcium Total Creatine Kinase Triglycerides Cholesterol LDL Cholesterol, Calc HDL Cholesterol Cholesterol/HDL Ratio 07/14/18 07/14/18 07/14/18 03:34 03:34 03:34 WBC 15.2 H RBC 3.46 L Hgb 10.3 L Hct 30.9 L MCV 89.3 MCH 29.7 MCHC 33.2 RDW 15.9 Plt Count 348 MPV 9.7 Neut % (Auto) 64.4 Lymph % (Auto) 23.9 Crane % (Auto) 8.1 H Eos % (Auto) 2.7 Baso % (Auto) 0.9 Neut # (Auto) 9.8 H Lymph # (Auto) 3.6 Crane # (Auto) 1.2 H Eos # (Auto) 0.4 Baso # (Auto) 0.1 WBC Differential . Differential Comment Auto diff final APTT 28.0 D Sodium 135 L Potassium 3.7 Chloride 95 L Carbon Dioxide 29.9 Anion Gap 10 BUN 102 H Creatinine 2.34 H Estimated GFR 28 L POC Glucose Random Glucose 161 H D Calcium 9.5 Total Creatine Kinase 70 Triglycerides 191 H Cholesterol 155 LDL Cholesterol, Calc 83 HDL Cholesterol 34.0 L Cholesterol/HDL Ratio 4.55 07/14/18 07:51 WBC RBC Hgb Hct MCV MCH MCHC RDW Plt Count MPV Neut % (Auto) Lymph % (Auto) Crane % (Auto) Eos % (Auto) Baso % (Auto) Neut # (Auto) Lymph # (Auto) Crane # (Auto) Eos # (Auto) Baso # (Auto) WBC Differential Differential Comment APTT Sodium Potassium Chloride Carbon Dioxide Anion Gap BUN Creatinine Estimated GFR POC Glucose 209 H Random Glucose Calcium Total Creatine Kinase Triglycerides Cholesterol LDL Cholesterol, Calc HDL Cholesterol Cholesterol/HDL Ratio Culture Results: Microbiology 07/11/18 09:36 Gram Stain - Final Fluid - Pleural fluid Body Fluid Culture - Preliminary Medications: Active Medications Generic Name Dose Route Start Last Admin Trade Name Freq PRN Reason Stop Dose Admin Acetaminophen 650 mg 06/29/18 23:46 07/01/18 22:08 Tylenol PO 650 mg Q6H PRN Administration TEMPERATURE > 100 F Al Hydroxide/Mg Hydroxide 30 ml 06/30/18 07:56 07/11/18 21:36 Milk Of Magnesia Liq PO 30 ml Q12H PRN Administration Mild Constipation Aspirin 81 mg 06/30/18 09:00 07/14/18 09:09 Ecotrin PO 81 mg DAILY [facility] Administration Atenolol 100 mg 07/12/18 10:00 07/14/18 09:09 Tenormin PO 100 mg DAILY [facility] Administration Azithromycin 500 mg 07/09/18 09:00 07/14/18 09:09 Zithromax PO 500 mg DAILY [facility] Administration Benzocaine/Menthol 1 lozenge 07/03/18 10:56 07/04/18 08:43 Cepacol Max Strength BUCCAL 1 lozenge Q2H PRN Administration SORE THROAT Benzonatate 100 mg 07/05/18 15:43 07/06/18 00:28 Tessalon Perles PO 100 mg Q8H PRN Administration COUGH Bisacodyl 10 mg 06/30/18 07:56 09/22/18 20:49 Dulcolax Supp RECTAL 10 mg DAILY PRN Administration SEVERE CONSITIPATION Clopidogrel Bisulfate 75 mg 07/14/18 09:00 07/14/18 09:08 Plavix PO 75 mg DAILY [facility] Administration Dextrose 50 ml 06/29/18 23:46 07/13/18 05:55 D50w Vial IV.PUSH 50 ml UNSCH PRN Administration PER HYPOGLYCEMIA PROTOCOL Insulin Aspart 0 unit 07/12/18 12:00 07/14/18 09:10 Novolog Insulin Correctional Sugar Inj SQ 3 unit ACHS AND 3AM [facility] Administration Protocol Insulin Detemir 15 unit 07/11/18 17:31 07/14/18 09:10 Levemir Inj SQ 15 unit BID [facility] Administration Morphine Sulfate 2 mg 06/30/18 07:56 07/07/18 20:25 Morphine Inj IV.PUSH 2 mg Q2H PRN Administration PAIN SCALE 6 TO 10 Multivitamins 1 tab 07/03/18 09:00 07/14/18 09:09 Theragran PO 1 tab DAILY [facility] Administration Oxycodone HCl 5 mg 06/29/18 23:46 07/07/18 23:26 Roxicodone PO 5 mg Q4H PRN Administration Pain 1-5 Pantoprazole Sodium 40 mg 06/30/18 09:00 07/14/18 09:09 Protonix PO 40 mg DAILY [facility] Administration Senna/Docusate Sodium 1 tab 06/30/18 09:00 07/14/18 09:10 Amelia-Colace PO 1 tab BID [facility] Administration Sennosides 17.2 mg 06/30/18 07:56 07/09/18 14:32 Senokot PO 17.2 mg Q12H PRN Administration Moderate Constipation Sodium Chloride 2 ml 06/30/18 09:00 07/14/18 09:11 Ns Flush IV.FLUSH Not Given BID [facility] Sodium Chloride 2 ml 06/30/18 07:56 07/06/18 17:21 Ns Flush IV.FLUSH 2 ml PRN PRN Administration FLUSH AFTER USING IV ACCESS Sodium Chloride 2 ml 07/13/18 21:00 07/14/18 09:11 Ns Flush IV.FLUSH 2 ml BID [facility] Administration Zolpidem Tartrate 10 mg 06/30/18 22:04 07/13/18 22:13 Ambien PO 10 mg HS PRN Administration SLEEP Objective Remarks: GENERAL: Well-nourished, well-developed male patient, sitting in chair, in no acute distress. SKIN: Warm and dry. Clean/dry bandage to left chest wall and right wrist. HEAD: Normocephalic. EYES: No scleral icterus. No injection or drainage. NECK: Supple, trachea midline. CARDIOVASCULAR: +S1/S2. RESPIRATORY: Breath sounds equal bilaterally. No accessory muscle use. GASTROINTESTINAL: Abdomen soft, non-tender, nondistended. EXTREMITIES: No cyanosis. BLE non-pitting edema. MUSCULOSKELETAL: Adequate muscle tone. NEUROLOGICAL: No obvious focal deficit. Awake, alert, and oriented x3. PSYCHIATRIC: Appropriate mood and affect; insight and judgment normal. Assessment/Plan - Plan Mr. Lees is a pleasant 72-year-old gentleman who was originally admitted into the hospital with increasing shortness of breath. He was found to have pleural effusion and CHF. Patient also had heart block with pacemaker placement, CAD with stent placement. Hematology was consulted earlier in admission for leukocytosis. Plan: 1. Leukocytosis, likely reactive in nature. This has improved from 21.9-15.2 today. Flow cytometry was negative for any abnormal or neoplastic cells. Patient was notified of these results. 2. Anemia, of chronic kidney disease, improving-almost to admission baseline. This appears to have improved without the administration of Procrit. 3. Hematology will follow peripherally. Kindly call if needed. - Attending Statement Pt ready to go home. Flow cytometry neg. Informed pt and . MPN w/u ordered. Will f/u in office in 2 weeks with results. Pt's to call office and make appt.
--- NOTE | 2018-07-14 11:11 | P.DS ---
Date of admission: 06/29/18 23:05 Primary care physician: Hussein Morgan MD, PhD Attending physician on discharge: Vince Whitaker Anticipated date of discharge: 07/14/18 Brief History from admission: This is a 72-year-old male with a history of prior aortic valve pathology status post an aortic valve replacement in 2010 here at [facility]. He has been seeing his primary care doctor at the OR over the last 2 weeks for increasing shortness of breath and lower extremity edema. He was placed on furosemide with some symptomatic relief. Today, he was in clinic and he stated he continued to feel worsening of his shortness of breath today. EKG in clinic demonstrated third-degree heart block and the patient was sent from clinic to the [facility] in [place]. [facility] in [place] admitted the patient, however no electrophysiology or cardiology consultation was available at the [facility], and the OR asked [facility] to accept the patient in transfer for workup of his third-degree heart block. Per the OR reports, the patient had a ventricular rate in the 30s-40s and was intermittently transcutaneously paced. Upon arrival to our institution, the patient has a ventricular rate of 70s. Repeat EKG still demonstrates that the patient has P waves and QRS complexes, but it does appear that the patient has complete heart block. His QRS complex is narrow, which would suggest that his ventricular rhythm is somewhat junctional in nature, but he clearly has regular P waves which are not associated in any way with his QRS complex. The patient is here still endorses mild shortness of breath. He denies any chest pain. He states that he has not had a recent echocardiogram. Does endorse lower extremity edema. Endorses mild dyspnea on exertion which has been very slowly increasing over the last 2 weeks. Denies orthopnea. Denies PND. Denies fever and chills. He is febrile to 102 here on admission, and other than he states approximately 2-3 weeks ago he felt like he had "head cold", he endorses no other infectious symptoms. He denies any runny nose, cough, congestion. Denies nausea, vomiting, diarrhea, constipation, abdominal pain. The remainder of the review of systems is negative. Dr. Varun Santillan with cardiology has been informed of the patient's admission and has accepted the patient in consultation from the OR. PMHx: prior aortic valve pathology, s/p valve replacement CKD stage III Chronic heart failure, unknown type CAD HLD DM PSHx: aortic valve replacement FHx: mother with pacemaker, unknown reason why. Med list which came with the patient from the OR was reviewed with the patient. of note, patient on 50mg metoprolol BID. DS: Diagnosis - Discharge Diagnosis (1) CHB (complete heart block) Status: Acute (2) CHF (congestive heart failure) Status: Acute (3) Fever Status: Acute (4) Acute kidney injury Status: Acute DS: Summary Hospital Course: 1. CHB. junctional escape. ppm placed 07/07 2. CHF. preserved LVF. decompensated pleural effusion. mod right. small left. 3. SO 4. FEVER/Leukocytosis. pulmonary infiltrates. 5. Diabetes 6. HTN 7. chest pressure 8. hypokalemia - Pt had thoracentesis 07/11 with removal of 800ml fluid -Hold po bumex. cr improving. - Lasix 40 mg IV x 2 doses 07/12 - metolazone stopped due to BUN of 102 - recheck BMP in AM - CXR 07/12 reviewed and reveals: Mild basilar airspace disease with small effusions. Primary differential diagnosis is mild congestive heart failure. Pacer leads overlie right atrium and right ventricle. -cont abx azithro per ID possible pna. rocephin stopped 07/08 -cont current bp medication -increase levemir to 15 units BID/ssi novolog -patient had episode of hypoglycemia blood glucose 44 07/12 AM, will DC medium dose regular insulin sliding scale ( patient received 10 units HS 07/11) -start Novolog low dose SSI ACHS and 3AM -replaced potassium -PT daily. -wean oxygen. -pt - 07/12 Initial troponin result 5.11, discussed with Dr. Santillan request heparin drip, continue to trend serial troponin and NPO after midnight - serial troponin 5.11, 4.24 and 3.42 - Patient S/P cardiac catheterization 07/[address] Elmore 1. Severe single-vessel coronary artery disease involving the proximal left anterior descending coronary artery 2. Successful percutaneous coronary intervention with drug-eluting stent to the proximal left anterior descending coronary artery - check ABIs - Time Spent with Patient Total time spent providing and/or coordinating discharge services: Greater than 30 minutes - Quality: VTE Deep Vein Thrombosis/Pulmonary Embolism Present on Admission: No Exam Vital signs: Vital Signs 07/13/18 12:00 07/13/18 15:00 07/13/18 17:00 Temperature 98.3 F Pulse Rate 67 63 61 Respiratory Rate 16 Blood Pressure 130/75 Pulse Oximetry 92 L 07/13/18 17:04 07/13/18 17:19 07/13/18 17:34 Temperature 98 F 98.5 F Pulse Rate 65 66 Respiratory Rate 16 16 Blood Pressure 126/70 124/65 131/77 Pulse Oximetry 94 L 07/13/18 17:49 07/13/18 18:00 07/13/18 18:19 Temperature Pulse Rate 67 67 68 Respiratory Rate 16 16 Blood Pressure 133/75 122/61 Pulse Oximetry 07/13/18 18:49 07/13/18 19:00 07/13/18 19:19 Temperature 98 F 97.8 F 98 F Pulse Rate 68 67 Respiratory Rate 24 18 Blood Pressure 138/78 141/73 H 113/56 L Pulse Oximetry 92 L 98 98 07/13/18 19:49 07/13/18 20:00 07/13/18 20:49 Temperature Pulse Rate 66 68 69 Respiratory Rate 24 20 Blood Pressure 122/81 131/79 Pulse Oximetry 96 98 07/13/18 21:00 07/13/18 21:49 07/13/18 22:00 Temperature Pulse Rate 75 65 75 Respiratory Rate 18 Blood Pressure 124/56 L Pulse Oximetry 99 07/13/18 22:49 07/13/18 23:00 07/13/18 23:49 Temperature 98 F Pulse Rate 68 71 65 Respiratory Rate 20 22 20 Blood Pressure 131/78 131/75 131/65 Pulse Oximetry 98 95 95 07/14/18 00:00 07/14/18 01:00 07/14/18 02:00 Temperature Pulse Rate 68 76 68 Respiratory Rate Blood Pressure Pulse Oximetry 07/14/18 03:00 07/14/18 03:18 07/14/18 04:00 Temperature 97.8 F Pulse Rate 73 65 70 Respiratory Rate 22 Blood Pressure 131/70 Pulse Oximetry 95 07/14/18 05:00 07/14/18 06:00 07/14/18 07:00 Temperature 97.9 F Pulse Rate 61 77 69 Respiratory Rate 14 Blood Pressure 146/74 H Pulse Oximetry 96 07/14/18 08:00 07/14/18 09:00 07/14/18 10:00 Temperature Pulse Rate 65 68 60 Respiratory Rate Blood Pressure Pulse Oximetry Intake & Output 07/13/18 07/14/18 07/14/18 18:59 06:59 18:59 Intake Total 450 / 450 480 / 480 250 / 250 Output Total 850 / 850 Balance 449 / 449 -370 / -370 250 / 250 Weight 81.5 kg Intake: IV 10 / 10 250 / 250 Heparin/NS PF Inj 500 ML @ 0 10 / 10 mls/hr .ROUTE .[employer] Rx#: [id number] Oral 240 / 240 480 / 480 Anesthesia Amount 200 / 200 Output: Urine 850 / 850 Stool Other: # Voids 3 4 Date of Last Bowel Movement 07/13/18 07/13/18 # Bowel Movements 2 Narrative: GENERAL: Well-developed well-nourished. NAD. NECK: No carotid bruits. No JVD. CARDIOVASCULAR: Regular rate and rhythm. Pacemaker in place on left chest wall dressing dry and intact RESPIRATORY: No accessory muscle use. Clear to auscultation. MUSCULOSKELETAL: No clubbing or cyanosis. trace nonpitting bilateral edema. NEUROLOGICAL: Awake and alert. Normal speech. Results Procedures completed during hospitalization: - ppm placed 07/07 - Thoracentesis 07/11 with removal of 800ml fluid - Patient S/P cardiac catheterization 07/[address] Elmore 1. Severe single-vessel coronary artery disease involving the proximal left anterior descending coronary artery 2. Successful percutaneous coronary intervention with drug-eluting stent to the proximal left anterior descending coronary artery Labs on day of discharge: Labs from last 24 hours 07/14/18 07/14/18 07/14/18 07:51 03:34 03:34 WBC 15.2 H RBC 3.46 L Hgb 10.3 L Hct 30.9 L MCV 89.3 MCH 29.7 MCHC 33.2 RDW 15.9 Plt Count 348 MPV 9.7 Neut % (Auto) 64.4 Lymph % (Auto) 23.9 [place] % (Auto) 8.1 H Eos % (Auto) 2.7 Baso % (Auto) 0.9 Neut # (Auto) 9.8 H Lymph # (Auto) 3.6 [place] # (Auto) 1.2 H Eos # (Auto) 0.4 Baso # (Auto) 0.1 WBC Differential . Differential Comment Auto diff final APTT Sodium 135 L Potassium 3.7 Chloride 95 L Carbon Dioxide 29.9 Anion Gap 10 BUN 102 H Creatinine 2.34 H Estimated GFR 28 L POC Glucose 209 H Random Glucose 161 H D Calcium 9.5 Total Creatine Kinase 70 Triglycerides 191 H Cholesterol 155 LDL Cholesterol, Calc 83 HDL Cholesterol 34.0 L Cholesterol/HDL Ratio 4.55 07/14/18 07/13/18 07/13/18 03:34 19:14 16:59 WBC RBC Hgb Hct MCV MCH MCHC RDW Plt Count MPV Neut % (Auto) Lymph % (Auto) [place] % (Auto) Eos % (Auto) Baso % (Auto) Neut # (Auto) Lymph # (Auto) [place] # (Auto) Eos # (Auto) Baso # (Auto) WBC Differential Differential Comment APTT 28.0 D Sodium Potassium Chloride Carbon Dioxide Anion Gap BUN Creatinine Estimated GFR POC Glucose 155 H 90 Random Glucose Calcium Total Creatine Kinase Triglycerides Cholesterol LDL Cholesterol, Calc HDL Cholesterol Cholesterol/HDL Ratio 07/13/18 11:29 WBC RBC Hgb Hct MCV MCH MCHC RDW Plt Count MPV Neut % (Auto) Lymph % (Auto) [place] % (Auto) Eos % (Auto) Baso % (Auto) Neut # (Auto) Lymph # (Auto) [place] # (Auto) Eos # (Auto) Baso # (Auto) WBC Differential Differential Comment APTT Sodium Potassium Chloride Carbon Dioxide Anion Gap BUN Creatinine Estimated GFR POC Glucose 179 H Random Glucose Calcium Total Creatine Kinase Triglycerides Cholesterol LDL Cholesterol, Calc HDL Cholesterol Cholesterol/HDL Ratio Preliminary micro results at discharge 07/11/18 09:36 Body Fluid Culture - Preliminary Fluid - Pleural fluid - Impressions ITS Impressions Abdomen/Bladder Ultrasound 06/30/18 00:00 CONCLUSION: No evidence of hydronephrosis. Venous Doppler Study 06/30/18 00:00 CONCLUSION: 1. The study is negative for bilateral lower extremity deep venous thrombosis. Chest CT 07/09/18 00:45 CONCLUSION: Interstitial edema with moderate pleural effusion on the right and small on the left. Thoracentesis Ultrasound 07/11/18 06:00 CONCLUSION: 1. Uncomplicated right thoracentesis. Chest X-Ray 07/12/18 10:32 CONCLUSION: Mild basilar airspace disease with small effusions. Primary differential diagnosis is mild congestive heart failure. Pacer leads overlie right atrium and right ventricle. Discharge Plan - Discharge Disposition Patient Disposition: 01 Discharge Home - Discharge Condition Condition: Stable - Discharge Details Anticipated Discharge Date: 07/14/18 - Physicians Team Primary Care Provider: Hussein Morgan Attending Provider: Vince Whitaker Other Providers: Varun Santillan DO ; Valentin Rodriguez MD ; Larry Acevedo MD ; Vince Whitaker DO ; Tiago Arias MD ; Santo Berg MD - Rxs /Orders / Referrals /Forms Prescriptions: New aspirin 81 mg Tablet,Delayed Release (Dr/Ec) 81 mg PO DAILY RF: 0 atenolol 100 mg Tablet 100 mg PO DAILY 30 Days Qty: 30 RF: 0 clopidogrel [Plavix] 75 mg Tablet 75 mg PO DAILY 30 Days Qty: 30 RF: 0 pantoprazole 40 mg Tablet,Delayed Release (Dr/Ec) 40 mg PO DAILY 30 Days Qty: 30 RF: 0 Continue calcitriol 0.25 mcg Capsule 0.25 mcg PO DAILY furosemide 40 mg Tablet 40 mg PO BID insulin aspart U-100 [Novolog U-100 Insulin aspart] 100 unit/mL Solution 5 unit SUB-Q AC BREAKFAST insulin aspart U-100 [Novolog U-100 Insulin aspart] 100 unit/mL Solution 8 units Sub-Q AC LUNCH insulin aspart U-100 [Novolog U-100 Insulin aspart] 100 unit/mL Solution 8 units Sub-Q AC DINNER insulin glargine [Lantus U-100 Insulin] 100 unit/mL Solution 28 units Sub-Q HS multivitamin Tablet 1 tab PO DAILY spironolactone 25 mg Tablet 25 mg PO DAILY Discontinued amlodipine 10 mg Tablet 10 mg PO DAILY aspirin 81 mg Tablet,Chewable 81 mg PO BID cinnamon bark [Cinnamon] 500 mg Capsule 1 cap PO BID coenzyme Q10 [CoQ-10] 100 mg Capsule 100 mg PO DAILY diphenhydramine-acetaminophen [Tylenol PM Extra Strength] 25-500 mg Tablet 1 tab PO HS PRN (Reason: Insomnia) glucosamine sulfate 1,000 mg Capsule 1,000 mg PO BID metformin 500 mg Tablet 500 mg PO DAILY metoprolol tartrate 50 mg Tablet 50 mg PO BID omega 8-ffy-rib-fish oil [Fish Oil] 360-1,200 mg Capsule,Delayed Release(Dr/ Ec) 1,200 mg PO BID Referrals: Varun Santillan DO [Physician] - See Instructions (follow up in 1-2 weeks) Hussein Morgan MD, PhD [Primary Care Provider] - See Instructions (follow up in 1 week) - Discharge Instructions Patient Printed Instructions: Pacemaker (DC)
--- NOTE | 2018-07-14 12:07 | P.PNIM ---
Subjective Interval history: Pt c/o episode of SOB lasting 10 minutes. Pt was slightly tachypneic, but now resolved. Pt denies chest pain, palliations, n/v, or diachoresis. Pt c/o increased SOB if he tries to lie flat. Pt c/o increased leg edema. No changes on telemetry. Physical Exam Vital signs: 07/14/18 06:00 07/14/18 07:00 07/14/18 08:00 Temperature 97.9 F Pulse Rate 77 69 65 Respiratory Rate 14 Blood Pressure 146/74 H Pulse Oximetry 96 Narrative: GENERAL: This is a well-nourished, well-developed patient, in no apparent distress. CARDIOVASCULAR: Regular rate and rhythm without murmurs, gallops, or rubs. RESPIRATORY: Clear to auscultation. Breath sounds equal bilaterally. No wheezes , rales, or rhonchi. GASTROINTESTINAL: Abdomen soft, non-tender, nondistended. Normal active bowel sounds MUSCULOSKELETAL: Extremities without clubbing, cyanosis, or edema. NEURO: Alert & Oriented x4 to person, place, time, situation. Moves all ext x4 Results - Labs CBC & Chem 7: 07/17/18 05:09 07/17/18 05:09 - Imaging Abdomen/Bladder Ultrasound 06/30/18 00:00 CONCLUSION: No evidence of hydronephrosis. Chest CT 06/30/18 00:00 CONCLUSION: 1. Findings probably on the basis of mild failure with patchy consolidation of both lungs and mild thickening of the interlobular septa as well as small right and tiny left pleural effusions. 2. Right lower lobe consolidation likely compressive/dependent atelectasis. 3. Previous median sternotomy and aortic valve replacement. Nonunion of the manubrial defect. 4. Coronary artery calcification. 5. A few scattered nonspecific upper limits of normal size mediastinal lymph nodes. Venous Doppler Study 06/30/18 00:00 CONCLUSION: 1. The study is negative for bilateral lower extremity deep venous thrombosis. Chest CT 07/09/18 00:45 CONCLUSION: Interstitial edema with moderate pleural effusion on the right and small on the left. Thoracentesis Ultrasound 07/11/18 06:00 CONCLUSION: 1. Uncomplicated right thoracentesis. Chest X-Ray 07/12/18 10:32 CONCLUSION: Mild basilar airspace disease with small effusions. Primary differential diagnosis is mild congestive heart failure. Pacer leads overlie right atrium and right ventricle. Assessment and Plan - Assessment (1) CHB (complete heart block) Code(s): I44.2 - Atrioventricular block, complete Status: Acute Plan: 1. CHB. junctional escape. ppm placed 07/07 2. CHF. preserved LVF. decompensated pleural effusion. mod right. small left. 3. SO 4. FEVER/Leukocytosis. pulmonary infiltrates. 5. Diabetes 6. HTN 7. chest pressure 8. hypokalemia - Pt had thoracentesis 07/11 with removal of 800ml fluid - Hold po bumex. cr improving. - Lasix 40 mg IV x 2 doses 07/12 - stop metolazone - CXR 07/12 reviewed and reveals: Mild basilar airspace disease with small effusions. Primary differential diagnosis is mild congestive heart failure. Pacer leads overlie right atrium and right ventricle. - cont abx azithro per ID possible pna. rocephin stopped 07/08 - cont current bp medication - increase levemir to 15 units BID/ssi novolog - patient had episode of hypoglycemia blood glucose 44 07/12 AM, will DC medium dose regular insulin sliding scale ( patient received 10 units HS 07/11) -start Novolog low dose SSI ACHS and 3AM - replaced potassium - PT daily. - 07/12 Initial troponin result 5.11, discussed with Dr. Santillan request heparin drip, continue to trend serial troponin and NPO after midnight - serial troponin 5.11, 4.24 and 3.42 - Patient S/P cardiac catheterization 07/[address] Elmore 1. Severe single-vessel coronary artery disease involving the proximal left anterior descending coronary artery 2. Successful percutaneous coronary intervention with drug-eluting stent to the proximal left anterior descending coronary artery - awaiting ABIs - had episode of SOB, 07/14 - obtain CXR - obtain 12 lead EKG - start lasix 40mg IV BID with KCL (2) CHF (congestive heart failure) Code(s): I50.9 - Heart failure, unspecified Status: Acute (3) Fever Code(s): R50.9 - Fever, unspecified Status: Acute (4) Acute kidney injury Code(s): N17.9 - Acute kidney failure, unspecified Status: Acute
--- NOTE | 2018-07-14 12:39 | XR ---
EXAM DATE: 07/14/2018 11:54 AM EDT AGE/SEX: 72 years / Male INDICATIONS: Short of breath. CLINICAL DATA: This is the patient's subsequent encounter. Patient reports that signs and symptoms h ave been present for 4 - 6 days and indicates a pain score of 0/10. MEDICAL/SURGICAL HISTORY: . Cardiovascular disease. . Pacemaker. heart valve replacement, thor acentesis right chest. COMPARISON: [facility], CHEST 1V SINGLE AP, 07/12/2018. . FINDINGS: Improved aeration at the lung bases with improved interstitial prominence. Stable median sternotomy w ires. Stable dual lead pacemaker. The cardiomediastinal contours are unremarkable. Osseous structure s are intact. CONCLUSION: 1. Improved aeration at the lung bases and improved positive fluid balance. Electronically signed by: Clifford Dickinson MD 07/14/2018 12:37 PM EDT
--- NOTE | 2018-07-14 13:25 | P.PNNP ---
Subjective Interval history: Reports some shortness of breath but improved with sitting up. Bilateral lower extremity edema. Denies any chest pain, nausea, or vomiting. Creatinine stable at 2.35. <Zuleika Vasquez - Last Filed: 07/14/18 13:18> Physical Exam Vital signs: Vital Signs 07/13/18 15:00 07/13/18 17:00 07/13/18 17:04 Temperature 98.3 F 98 F Pulse Rate 63 61 65 Respiratory Rate 16 16 Blood Pressure 130/75 126/70 Pulse Oximetry 92 L 07/13/18 17:19 07/13/18 17:34 07/13/18 17:49 Temperature 98.5 F Pulse Rate 66 67 Respiratory Rate 16 16 Blood Pressure 124/65 131/77 133/75 Pulse Oximetry 94 L 07/13/18 18:00 07/13/18 18:19 07/13/18 18:49 Temperature 98 F Pulse Rate 67 68 Respiratory Rate 16 Blood Pressure 122/61 138/78 Pulse Oximetry 92 L 07/13/18 19:00 07/13/18 19:19 07/13/18 19:49 Temperature 97.8 F 98 F Pulse Rate 68 67 66 Respiratory Rate 24 18 24 Blood Pressure 141/73 H 113/56 L 122/81 Pulse Oximetry 98 98 96 07/13/18 20:00 07/13/18 20:49 07/13/18 21:00 Temperature Pulse Rate 68 69 75 Respiratory Rate 20 Blood Pressure 131/79 Pulse Oximetry 98 07/13/18 21:49 07/13/18 22:00 07/13/18 22:49 Temperature Pulse Rate 65 75 68 Respiratory Rate 18 20 Blood Pressure 124/56 L 131/78 Pulse Oximetry 99 98 07/13/18 23:00 07/13/18 23:49 07/14/18 00:00 Temperature 98 F Pulse Rate 71 65 68 Respiratory Rate 22 20 Blood Pressure 131/75 131/65 Pulse Oximetry 95 95 07/14/18 01:00 07/14/18 02:00 07/14/18 03:00 Temperature 97.8 F Pulse Rate 76 68 73 Respiratory Rate 22 Blood Pressure 131/70 Pulse Oximetry 95 07/14/18 03:18 07/14/18 04:00 07/14/18 05:00 Temperature Pulse Rate 65 70 61 Respiratory Rate Blood Pressure Pulse Oximetry 07/14/18 06:00 07/14/18 07:00 07/14/18 08:00 Temperature 97.9 F Pulse Rate 77 69 65 Respiratory Rate 14 Blood Pressure 146/74 H Pulse Oximetry 96 07/14/18 09:00 07/14/18 10:00 07/14/18 11:00 Temperature 98 F Pulse Rate 68 60 80 Respiratory Rate 18 Blood Pressure 128/60 Pulse Oximetry 98 07/14/18 12:00 Temperature Pulse Rate 67 Respiratory Rate Blood Pressure Pulse Oximetry Intake & Output 07/13/18 07/14/18 07/14/18 18:59 06:59 18:59 Intake Total 450 / 450 480 / 480 250 / 250 Output Total 850 / 850 Balance 449 / 449 -370 / -370 250 / 250 Weight 81.5 kg Intake: IV 10 10 250 / 250 Heparin/NS PF Inj 500 ML @ 0 10 / 10 mls/hr .ROUTE .[facility] Rx#: [id number] Oral 240 / 240 480 / 480 Anesthesia Amount 200 / 200 Output: Urine 850 / 850 Stool Other: # Voids 3 4 Date of Last Bowel Movement 07/13/18 07/13/18 # Bowel Movements 2 Narrative: GENERAL: Well-developed well-nourished. NAD. NECK: No carotid bruits. No JVD. CARDIOVASCULAR: Regular rate and rhythm. No murmur appreciated. Pacemaker in place on left chest wall with no swelling, ecchymosis, or tenderness. RESPIRATORY: No accessory muscle use. Clear to auscultation. Breath sounds equal bilaterally. MUSCULOSKELETAL: No clubbing or cyanosis. 1-2+ bilateral edema. NEUROLOGICAL: Awake and alert. Normal speech. <Zuleika Vasquez - Last Filed: 07/14/18 13:18> Vital signs: Vital Signs 07/13/18 18:19 07/13/18 18:49 07/13/18 19:00 Temperature 98 F 97.8 F Pulse Rate 68 68 Respiratory Rate 16 24 Blood Pressure 122/61 138/78 141/73 H Pulse Oximetry 92 L 98 07/13/18 19:19 07/13/18 19:49 07/13/18 20:00 Temperature 98 F Pulse Rate 67 66 68 Respiratory Rate 18 24 Blood Pressure 113/56 L 122/81 Pulse Oximetry 98 96 07/13/18 20:49 07/13/18 21:00 07/13/18 21:49 Temperature Pulse Rate 69 75 65 Respiratory Rate 20 18 Blood Pressure 131/79 124/56 L Pulse Oximetry 98 99 07/13/18 22:00 07/13/18 22:49 07/13/18 23:00 Temperature 98 F Pulse Rate 75 68 71 Respiratory Rate 20 22 Blood Pressure 131/78 131/75 Pulse Oximetry 98 95 07/13/18 23:49 07/14/18 00:00 07/14/18 01:00 Temperature Pulse Rate 65 68 76 Respiratory Rate 20 Blood Pressure 131/65 Pulse Oximetry 95 07/14/18 02:00 07/14/18 03:00 07/14/18 03:18 Temperature 97.8 F Pulse Rate 68 73 65 Respiratory Rate 22 Blood Pressure 131/70 Pulse Oximetry 95 07/14/18 04:00 07/14/18 05:00 07/14/18 06:00 Temperature Pulse Rate 70 61 77 Respiratory Rate Blood Pressure Pulse Oximetry 07/14/18 07:00 07/14/18 08:00 07/14/18 09:00 Temperature 97.9 F Pulse Rate 69 65 68 Respiratory Rate 14 Blood Pressure 146/74 H Pulse Oximetry 96 07/14/18 10:00 07/14/18 11:00 07/14/18 12:00 Temperature 98 F Pulse Rate 60 80 67 Respiratory Rate 18 Blood Pressure 128/60 Pulse Oximetry 98 07/14/18 13:00 07/14/18 14:00 07/14/18 15:00 Temperature 98 F Pulse Rate 60 60 61 Respiratory Rate 16 Blood Pressure 119/68 Pulse Oximetry 96 07/14/18 16:00 07/14/18 17:00 07/14/18 17:41 Temperature Pulse Rate 62 63 60 Respiratory Rate Blood Pressure Pulse Oximetry Intake & Output 07/13/18 07/14/18 07/14/18 18:59 06:59 18:59 Intake Total 450 / 450 480 / 480 1330 / 1330 Output Total 850 / 850 535 / 535 Balance 449 / 449 -370 / -370 795 / 795 Weight 81.5 kg Intake: IV 10 / 10 250 / 250 Heparin/NS PF Inj 500 ML @ 0 10 / 10 mls/hr .ROUTE .[facility] Rx#: [id number] Oral 240 / 240 480 / 480 1080 / 1080 Anesthesia Amount 200 / 200 Output: Urine 850 / 850 535 / 535 Stool Other: # Voids 3 4 Date of Last Bowel Movement 07/13/18 07/13/18 # Bowel Movements 2 <Larry Acevedo - Last Filed: 07/14/18 18:18> Assessment and Plan - Assessment (1) Acute kidney injury Code(s): N17.9 - Acute kidney failure, unspecified Status: Acute Plan: Acute kidney injury with creatinine of 2.60 on day of consult. SO possibly ATN from decreased cardiac output/ third spacing/ infection History of chronic kidney disease with mild proteinuria possibly from diabetic or hypertensive renal disease. Baseline creatinine not available but creatinine noted to be 1.20 April 2011 Renal ultrasound with no evidence of stone, masses or hydronephrosis Renal function stable 2.32, Urinary output at 850 ml/24 hours Plan Monitor strict I+O Avoid nephrotoxins as possible S/P heart cath on 07/13 Lasix resumed with increased shortness of breath, and persistent edema. Follow the BMP and the urine out put. (2) Anemia Code(s): D64.9 - Anemia, unspecified Status: Acute Plan: Hemoglobin stable 10.3 Most likely from chronic disease (3) Complete heart block by electrocardiogram Code(s): I44.2 - Atrioventricular block, complete Status: Acute Plan: Pacemaker placement on 07/07 (4) Sepsis Code(s): A41.9 - Sepsis, unspecified organism Status: Acute Plan: On antibiotics for possible pneumonia <Zuleika Vasquez - Last Filed: 07/14/18 13:18> - Assessment (1) Acute kidney injury Code(s): N17.9 - Acute kidney failure, unspecified Status: Acute Plan: Patient seen and examined, agree with above. Cardiac Cath. results noted. Lasix restarted. Creatinine is stable 2.3. (2) Anemia Code(s): D64.9 - Anemia, unspecified Status: Acute (3) Complete heart block by electrocardiogram Code(s): I44.2 - Atrioventricular block, complete Status: Acute (4) Sepsis Code(s): A41.9 - Sepsis, unspecified organism Status: Acute <Larry Acevedo - Last Filed: 07/14/18 18:18>
[2018-07-14] MEDS: Nystatin 100,000 UNITS/GM Powder 15 GM Bottle TOPICAL SCH ×3 (13:35→20:20)
--- NOTE | 2018-07-14 22:25 | ECG ---
Date Performed: 07/14/2018 Time Performed: 00:36:08 PTAGE: 72 years EKG: Sinus rhythm with 1st degree A-V block Indeterminate axis IV conduction defect Anterolateral infarct - age undete rmined Abnormal ECG PREVIOUS TRACING : 07/12/2018 23.42 Since the previous tracing, no significant change noted DOCTOR: Alfred Erickson Interpretating Date/Time 07/14/2018 22:23:55
--- NOTE | 2018-07-14 22:55 | ECG ---
Date Performed: 07/12/2018 Time Performed: 23:42:26 PTAGE: 72 years EKG: Paced rhythm Abnormal ECG PREVIOUS TRACING : 07/12/2018 17.13 Since the previous tracing, no significant change noted DOCTOR: Alfred Erickson Interpretating Date/Time 07/14/2018 22:54:19
[2018-07-15] MEDS: Insulin NovoLOG Aspart Correctional Sugar Inj SQ SCH ×5 (02:53→21:40)
[2018-07-15 05:00] LABS: Baso # (Auto) 0.1 th/mm3 (0.0-0.2); Baso % (Auto) 0.9 % (0.0-2.0); Eos # (Auto) 0.6 th/mm3 (0.0-0.4); Eos % (Auto) 3.7 % (0.0-4.0); Hematocrit 29.3 % (39.0-51.0); Hemoglobin 9.6 gm/dL (13.0-17.0); Lymph # (Auto) 4.9 th/mm3 (1.0-4.8); Lymph % (Auto) 29.9 % (9.0-44.0); Mean Corpuscular HGB Conc 32.6 % (32.0-36.0); Mean Corpuscular Hemoglobin 29.1 pg (27.0-34.0); Mean Corpuscular Volume 89.1 fL (80.0-100.0); Mean Platelet Volume 9.4 fL (7.0-11.0); Mono # (Auto) 1.7 th/mm3 (0.0-0.9); Mono % (Auto) 10.5 % (0.0-8.0); Platelet Count 307 th/mm3 (150-450); Red Blood Count 3.29 mil/mm3 (4.50-5.90); White Blood Count 16.5 th/mm3 (4.0-11.0)
[2018-07-15 05:14] LABS: Calcium 9.2 mg/dL (8.5-10.1); Carbon Dioxide 29.7 meq/L (21.0-32.0); Potassium 3.6 meq/L (3.5-5.1)
--- NOTE | 2018-07-15 07:48 | P.PNCA ---
Subjective Interval history: Patient complains of left hand pain. He feels his breathing has improved and denies any chest pain/pressure. Still with lower extremity edema and chest x- ray yesterday continues to show some pulmonary edema. Discussed with RN, not much urine output overnight on Lasix. Medications and Allergies Active Medications: Active Medications Acetaminophen (Tylenol) 650 mg PO Q6H PRN PRN Reason: TEMPERATURE > 100 F Last Admin: 07/01/18 22:08 Dose: 650 mg Acetaminophen (Tylenol) 650 mg PO Q4H PRN PRN Reason: PAIN SCALE 1 TO 2 Al Hydroxide/Mg Hydroxide (Milk Of Hannah Mathis) 30 ml PO Q12H PRN PRN Reason: Mild Constipation Last Admin: 07/11/18 21:36 Dose: 30 ml Albuterol (Albuterol Neb (Prn)) 2.5 mg NEB Q2HR NEB PRN PRN Reason: DYSPNEA Aspirin (Ecotrin) 81 mg PO DAILY [facility] Last Admin: 07/14/18 09:09 Dose: 81 mg Atenolol (Tenormin) 100 mg PO DAILY [facility] Last Admin: 07/14/18 09:09 Dose: 100 mg Azithromycin (Zithromax) 500 mg PO DAILY [facility] Last Admin: 07/14/18 09:09 Dose: 500 mg Benzocaine/Menthol (Cepacol Max Strength) 1 lozenge BUCCAL Q2H PRN PRN Reason: SORE THROAT Last Admin: 07/04/18 08:43 Dose: 1 lozenge Benzonatate (Tessalon Perles) 100 mg PO Q8H PRN PRN Reason: COUGH Last Admin: 07/06/18 00:28 Dose: 100 mg Bisacodyl (Dulcolax Supp) 10 mg RECTAL DAILY PRN PRN Reason: SEVERE CONSITIPATION Last Admin: 07/09/18 20:49 Dose: 10 mg Clopidogrel Bisulfate (Plavix) 75 mg PO DAILY [facility] Last Admin: 07/14/18 09:08 Dose: 75 mg Dextrose (D50w Vial) 50 ml IV.PUSH UNSCH PRN PRN Reason: PER HYPOGLYCEMIA PROTOCOL Furosemide (Lasix Inj) 40 mg IV.PUSH BID@0900,1800 [facility] Last Admin: 07/14/18 17:05 Dose: 40 mg Glucagon (Glucagon Inj) 1 mg OTHER PRN PRN PRN Reason: for Hypoglycemia Protocol Insulin Aspart (Novolog Insulin Correctional Sugar Inj) 0 unit SQ ACHS AND 3AM GLENIS; Protocol Last Admin: 07/15/18 02:53 Dose: Not Given Insulin Detemir (Levemir Inj) 15 unit SQ BID [facility] Last Admin: 07/14/18 20:20 Dose: 15 unit Lactulose (Lactulose Liq) 30 ml PO DAILY PRN PRN Reason: SEVERE CONSITIPATION Magnesium Oxide (Mag-Ox) 800 mg PO UNSCH PRN PRN Reason: For Magnesium 1.2 - 1.6 mg/dL Morphine Sulfate (Morphine Inj) 2 mg IV.PUSH Q2H PRN PRN Reason: PAIN SCALE 6 TO 10 Last Admin: 07/07/18 20:25 Dose: 2 mg Multivitamins (Theragran) 1 tab PO DAILY [facility] Last Admin: 07/14/18 09:09 Dose: 1 tab Nystatin (Mycostatin Powder) 1 applicatio TOPICAL QID [facility] Last Admin: 07/14/18 20:20 Dose: 1 applicatio Ondansetron HCl (Zofran Inj) 4 mg IV.PUSH Q6H PRN PRN Reason: NAUSEA OR VOMITING Oxycodone HCl (Roxicodone) 5 mg PO Q4H PRN PRN Reason: Pain 1-5 Last Admin: 07/07/18 23:26 Dose: 5 mg Pantoprazole Sodium (Protonix) 40 mg PO DAILY [facility] Last Admin: 07/14/18 09:09 Dose: 40 mg Potassium Chloride (K-Dur) 20 meq PO DAILY [facility] Last Admin: 07/14/18 13:04 Dose: 20 meq Senna/Docusate Sodium (Amelia-Colace) 1 tab PO BID [facility] Last Admin: 07/14/18 20:20 Dose: 1 tab Sennosides (Senokot) 17.2 mg PO Q12H PRN PRN Reason: Moderate Constipation Last Admin: 07/09/18 14:32 Dose: 17.2 mg Sodium Chloride (Ns Flush) 2 ml IV.FLUSH BID [facility] Last Admin: 07/14/18 21:55 Dose: 2 ml Sodium Chloride (Ns Flush) 2 ml IV.FLUSH PRN PRN PRN Reason: FLUSH AFTER USING IV ACCESS Zolpidem Tartrate (Ambien) 10 mg PO HS PRN PRN Reason: SLEEP Last Admin: 07/14/18 20:19 Dose: 10 mg Allergies Allergy/AdvReac Type Severity Reaction Status Date / Time [id number]-[id number]-Hkw Reductase Allergy Severe muscle Verified 04/12/18 05:50 Inhibitor weakness atorvastatin Allergy Mild Verified 04/12/18 05:50 Home Medications Medication Instructions Recorded Confirmed Type amlodipine 10 mg PO DAILY 06/30/18 06/30/18 History aspirin 81 mg PO BID 06/30/18 07/02/18 History calcitriol 0.25 mcg PO DAILY 06/30/18 07/02/18 History cinnamon bark [Cinnamon] 1 cap PO BID 06/30/18 07/02/18 History coenzyme Q10 [CoQ-10] 100 mg PO DAILY 06/30/18 06/30/18 History diphenhydramine-acetaminophen 1 tab PO HS PRN 06/30/18 07/02/18 History [Tylenol PM Extra Strength] furosemide 40 mg PO BID 06/30/18 06/30/18 History glucosamine sulfate 1,000 mg PO BID 06/30/18 07/02/18 History insulin aspart U-100 [Novolog 5 unit SUB-Q AC BREAKFAST 06/30/18 06/30/18 History U-100 Insulin aspart] insulin aspart U-100 [Novolog 8 units SUB-Q AC DINNER 06/30/18 07/02/18 History U-100 Insulin aspart] insulin aspart U-100 [Novolog 8 units SUB-Q AC LUNCH 06/30/18 07/02/18 History U-100 Insulin aspart] insulin glargine [Lantus U-100 28 units SUB-Q HS 06/30/18 07/02/18 History Insulin] metformin 500 mg PO DAILY 06/30/18 07/02/18 History metoprolol tartrate 50 mg PO BID 06/30/18 06/30/18 History multivitamin 1 tab PO DAILY 06/30/18 07/02/18 History omega 1-gdi-ivm-fish oil [Fish Oil] 1,200 mg PO BID 06/30/18 07/02/18 History spironolactone 25 mg PO DAILY 06/30/18 06/30/18 History Physical Exam Vital signs: Vital Signs 07/14/18 08:00 07/14/18 09:00 07/14/18 10:00 Temperature Pulse Rate 65 68 60 Respiratory Rate Blood Pressure Pulse Oximetry 07/14/18 11:00 07/14/18 12:00 07/14/18 13:00 Temperature 98 F Pulse Rate 80 67 60 Respiratory Rate 18 Blood Pressure 128/60 Pulse Oximetry 98 07/14/18 14:00 07/14/18 15:00 07/14/18 16:00 Temperature 98 F Pulse Rate 60 61 62 Respiratory Rate 16 Blood Pressure 119/68 Pulse Oximetry 96 07/14/18 17:00 07/14/18 17:41 07/14/18 19:00 Temperature 98.3 F Pulse Rate 63 60 60 Respiratory Rate 22 Blood Pressure 130/62 Pulse Oximetry 96 07/14/18 20:00 07/14/18 21:00 07/14/18 22:00 Temperature Pulse Rate 65 63 84 Respiratory Rate Blood Pressure Pulse Oximetry 07/14/18 22:59 07/14/18 23:00 07/15/18 00:00 Temperature 98.1 F Pulse Rate 61 60 60 Respiratory Rate 22 Blood Pressure 132/70 Pulse Oximetry 98 07/15/18 01:00 07/15/18 02:00 07/15/18 03:00 Temperature 98.1 F Pulse Rate 66 63 62 Respiratory Rate 22 Blood Pressure 148/72 H Pulse Oximetry 96 07/15/18 04:00 07/15/18 05:00 07/15/18 06:00 Temperature Pulse Rate 60 61 65 Respiratory Rate Blood Pressure Pulse Oximetry Intake & Output 07/14/18 07/15/18 07/15/18 18:59 06:59 18:59 Intake Total 1330 / 1330 480 / 480 Output Total 535 / 535 600 / 600 Balance 795 / 795 -120 / -120 Weight 177 lb 7.554 oz Intake: IV 250 / 250 Oral 1080 / 1080 480 / 480 Output: Urine 535 / 535 600 / 600 Other: Date of Last Bowel Movement 07/14/18 # Bowel Movements 1 Narrative: GENERAL: Well-developed well-nourished. NAD. NECK: No carotid bruits. No JVD. CARDIOVASCULAR: Regular rate and rhythm. No murmur appreciated. Pacemaker in place on left chest wall with no swelling, ecchymosis, or tenderness. RESPIRATORY: No accessory muscle use. Clear to auscultation. Breath sounds equal bilaterally. MUSCULOSKELETAL: No clubbing or cyanosis. 1-2+ bilateral edema. NEUROLOGICAL: Awake and alert. Normal speech. Results 07/15/18 04:39 07/15/18 04:39 Coagulation 07/14/18 Range/Units 03:34 APTT 28.0 D (24.3-30.1) sec Lipids 07/14/18 Range/Units 03:34 Triglycerides 191 H (42-150) mg/dL Cholesterol 155 (120-200) mg/dL HDL Cholesterol 34.0 L (40.0-60.0) mg/dL Cholesterol/HDL Ratio 4.55 Ratio CBC 07/14/18 07/15/18 Range/Units 03:34 04:39 WBC 15.2 H 16.5 H (4.0-11.0) th/mm3 RBC 3.46 L 3.29 L (4.50-5.90) mil/mm3 Hgb 10.3 L 9.6 L (13.0-17.0) gm/dL Hct 30.9 L 29.3 L (39.0-51.0) % Plt Count 348 307 (150-450) th/mm3 Neut # (Auto) 9.8 H 9.0 H (1.8-7.7) th/mm3 Lymph # (Auto) 3.6 4.9 H (1.0-4.8) th/mm3 [place] # (Auto) 1.2 H 1.7 H (0.0-0.9) th/mm3 Eos # (Auto) 0.4 0.6 H (0.0-0.4) th/mm3 Baso # (Auto) 0.1 0.1 (0.0-0.2) th/mm3 Comprehensive Metabolic Panel 07/14/18 07/15/18 Range/Units 03:34 04:39 Sodium 135 L 137 (136-145) meq/L Potassium 3.7 3.6 (3.5-5.1) meq/L Chloride 95 L 99 (98-107) meq/L Carbon Dioxide 29.9 29.7 (21.0-32.0) meq/L BUN 102 H 103 H (7-18) mg/dL Creatinine 2.34 H 2.22 H (0.60-1.30) mg/dL Calcium 9.5 9.2 (8.5-10.1) mg/dL Intake and Output 07/14/18 07/15/18 07/15/18 22:59 06:59 14:59 Intake Total 1080 / 1080 480 / 480 Output Total 535 / 535 600 / 600 Balance 545 / 545 -120 / -120 Intake: Oral 1080 / 1080 480 / 480 Output: Urine 535 / 535 600 / 600 Other: Date of Last Bowel Movement 07/14/18 # Bowel Movements 1 Weight 177 lb 7.554 oz - Imaging and Cardiology Imaging: Impressions Chest X-Ray 07/14/18 11:54 CONCLUSION: 1. Improved aeration at the lung bases and improved positive fluid balance. Assessment and Plan - Plan Assessment: Patient admitted as transfer from [facility] with CHB and junctional escape rhythm, hemodynamically stable in the setting of ADHF, fever, leukocytosis, and CKD stage 3. There was concern for possible bacterial endocarditis in this setting, however transthoracic echocardiogram and transesophageal echocardiogram did not reveal any valvular vegetations. LV systolic function is normal. Still with persistent LE edema. -CHB, with junctional escape rhythm, no s/p [employer] dual chamber PPM 07/07/18 -HFpEF -symptomatically improving with aggressive diuresis and thoracentesis . -Anasarca with lower extremity edema and hypoalbuminemia -Chronic Leukocytosis, cultures negative to date, was cleared by ID for pacemaker, hematology consult appreciated. -CKD stage 3, with SO, stable -CAD, asymptomatic -Moderate aortic bioprosthesis stenosis on echo, normal EF -HTN - better controlled -NSTEMI 07/12 s/p PCI to LAD lesion 07/13 Recommendations: -s/p PPM 07/07/18 - no lifting with left arm -Nephrology following for SO on CKD -Continue home ASA 81mg daily, and Plavix 75mg daily (DAPT) uninterrupted for minimum of 1 year. -Continue atenolol 100mg daily -Continue diuresis, add back metolazone Discussed Condition With: Patient, RN, Dr. Santillan
[2018-07-15] MEDS ORDERED: metOLazone 5 MG Tablet PO SCH (09:00)
[2018-07-15] MEDS: Senna/Docusate Sodium 8.6/50 MG Tablet PO SCH ×2 (10:05→21:39)
[2018-07-15] MEDS: Azithromycin 250 MG Tablet PO SCH (10:05)
[2018-07-15] MEDS: Insulin Detemir Inj 1,000 UNIT/10 ML Vial SQ SCH ×2 (10:06→21:39)
[2018-07-15] MEDS: Atenolol 100 MG Tablet PO SCH (10:06)
[2018-07-15] MEDS: Nystatin 100,000 UNITS/GM Powder 15 GM Bottle TOPICAL SCH ×4 (10:07→21:39)
--- NOTE | 2018-07-15 13:03 | P.PNID ---
Subjective Remarks: Follow up. Notes reviewed. Patient complains of pain in the left palm. developed redness and tenderness at the palm at the area beyond the forth finger Notes his breathing is better. Afebrile. WBC is still elevated. Receiving diuretics. Denies chills. Denies chest pain. Post pacemaker. 72-year-old white male who has a history of aortic valve replacement in 2010. The patient presented to the [facility] in [place] and was felt to be in complete heart block. He was transferred to [facility] for further evaluation. The patient was noted to have fever with temperature of 102 degrees yesterday and white count was elevated at 21.9. The patient notes that he has had a head cold with coughing, which began 2 weeks ago. He notes that he was having pain behind the eyes and the cough was not improving. He took cough medications, but he continued with the cough. He has had no sputum production. He notes having shaking chills before he went to the [facility] for evaluation from the [facility]. Past Medical History: PAST MEDICAL HISTORY: Diabetes mellitus, hypertension, hyperlipidemia, coronary artery disease, chronic heart failure, chronic kidney disease stage III, history of aortic valve replacement in 2010. Bilateral hip replacement Oct and March 2018. Splenectomy. ITP. Allergies/Adverse Reactions: Allergies Hfvstyn-Szy-Sgj Reductase Inhibitor Allergy (Severe, Verified 04/12/18 05:50) muscle weakness atorvastatin Allergy (Mild, Verified 04/12/18 05:50) Objective Vital Signs 07/14/18 13:00 07/14/18 14:00 07/14/18 15:00 Temperature 98 F Pulse Rate 60 60 61 Respiratory Rate 16 Blood Pressure 119/68 Pulse Oximetry 96 07/14/18 16:00 07/14/18 17:00 07/14/18 17:41 Temperature Pulse Rate 62 63 60 Respiratory Rate Blood Pressure Pulse Oximetry 07/14/18 19:00 07/14/18 20:00 07/14/18 21:00 Temperature 98.3 F Pulse Rate 60 65 63 Respiratory Rate 22 Blood Pressure 130/62 Pulse Oximetry 96 07/14/18 22:00 07/14/18 22:59 07/14/18 23:00 Temperature 98.1 F Pulse Rate 84 61 60 Respiratory Rate 22 Blood Pressure 132/70 Pulse Oximetry 98 07/15/18 00:00 07/15/18 01:00 07/15/18 02:00 Temperature Pulse Rate 60 66 63 Respiratory Rate Blood Pressure Pulse Oximetry 07/15/18 03:00 07/15/18 04:00 07/15/18 05:00 Temperature 98.1 F Pulse Rate 62 60 61 Respiratory Rate 22 Blood Pressure 148/72 H Pulse Oximetry 96 07/15/18 06:00 07/15/18 07:00 07/15/18 08:00 Temperature 97.9 F Pulse Rate 65 64 63 Respiratory Rate 16 Blood Pressure 141/75 H Pulse Oximetry 96 07/15/18 09:00 07/15/18 10:00 07/15/18 11:00 Temperature 97.7 F Pulse Rate 69 59 L 62 Respiratory Rate 16 Blood Pressure 154/81 H Pulse Oximetry 96 07/15/18 12:00 07/15/18 12:53 Temperature Pulse Rate 60 59 L Respiratory Rate Blood Pressure Pulse Oximetry Intake & Output 07/14/18 07/15/18 07/15/18 18:59 06:59 18:59 Intake Total 1330 / 1330 480 / 480 Output Total 535 / 535 600 / 600 Balance 795 / 795 -120 / -120 Weight 80.5 kg Intake: IV 250 / 250 Oral 1080 / 1080 480 / 480 Output: Urine 535 / 535 600 / 600 Other: Date of Last Bowel Movement 07/14/18 # Bowel Movements 1 07/11/18 09:36 Fluid - Pleural fluid Gram Stain - Final 07/11/18 09:36 Fluid - Pleural fluid Body Fluid Culture - Final No growth in 72 hours (aerobically and anaerobically ) Lab - Hematology Results 07/14/18 07/15/18 03:34 04:39 WBC 15.2 H 16.5 H RBC 3.46 L 3.29 L Hgb 10.3 L 9.6 L Hct 30.9 L 29.3 L MCV 89.3 89.1 MCH 29.7 29.1 MCHC 33.2 32.6 RDW 15.9 16.0 Plt Count 348 307 MPV 9.7 9.4 Neut % (Auto) 64.4 55.0 Lymph % (Auto) 23.9 29.9 [place] % (Auto) 8.1 H 10.5 H Eos % (Auto) 2.7 3.7 Baso % (Auto) 0.9 0.9 Neut # (Auto) 9.8 H 9.0 H Lymph # (Auto) 3.6 4.9 H [place] # (Auto) 1.2 H 1.7 H Eos # (Auto) 0.4 0.6 H Baso # (Auto) 0.1 0.1 WBC Differential . . Differential Comment Auto diff final Auto diff final Lab - Chemistry Results 07/13/18 07/13/18 07/14/18 16:59 19:14 03:34 Sodium 135 L Potassium 3.7 Chloride 95 L Carbon Dioxide 29.9 Anion Gap 10 BUN 102 H Creatinine 2.34 H Estimated GFR 28 L POC Glucose 90 155 H Random Glucose 161 H D Calcium 9.5 Total Creatine Kinase 70 Triglycerides 191 H Cholesterol 155 LDL Cholesterol, Calc 83 HDL Cholesterol 34.0 L Cholesterol/HDL Ratio 4.55 07/14/18 07/14/18 07/14/18 07:51 11:47 16:56 Sodium Potassium Chloride Carbon Dioxide Anion Gap BUN Creatinine Estimated GFR POC Glucose 209 H 241 H 229 H Random Glucose Calcium Total Creatine Kinase Triglycerides Cholesterol LDL Cholesterol, Calc HDL Cholesterol Cholesterol/HDL Ratio 07/14/18 07/14/18 07/15/18 19:22 19:23 02:47 Sodium Potassium Chloride Carbon Dioxide Anion Gap BUN Creatinine Estimated GFR POC Glucose 323 H 304 H 96 Random Glucose Calcium Total Creatine Kinase Triglycerides Cholesterol LDL Cholesterol, Calc HDL Cholesterol Cholesterol/HDL Ratio 07/15/18 07/15/18 07/15/18 04:39 08:06 11:56 Sodium 137 Potassium 3.6 Chloride 99 Carbon Dioxide 29.7 Anion Gap 8 BUN 103 H Creatinine 2.22 H Estimated GFR 29 L POC Glucose 102 178 H Random Glucose 84 Calcium 9.2 Total Creatine Kinase Triglycerides Cholesterol LDL Cholesterol, Calc HDL Cholesterol Cholesterol/HDL Ratio Imaging: ITS Impressions Abdomen/Bladder Ultrasound 06/30/18 00:00 CONCLUSION: No evidence of hydronephrosis. Venous Doppler Study 06/30/18 00:00 CONCLUSION: 1. The study is negative for bilateral lower extremity deep venous thrombosis. Chest CT 07/09/18 00:45 CONCLUSION: Interstitial edema with moderate pleural effusion on the right and small on the left. Thoracentesis Ultrasound 07/11/18 06:00 CONCLUSION: 1. Uncomplicated right thoracentesis. Chest X-Ray 07/14/18 11:54 CONCLUSION: 1. Improved aeration at the lung bases and improved positive fluid balance. Physical Exam: PHYSICAL EXAMINATION: GENERAL: Awake and alert and oriented. HEENT: Head is atraumatic. Extraocular movements grossly intact. Pupils reactive to light. No icterus. No conjunctival erythema. Oropharynx: Moist mucosa. No visible lesions. No thrush. NECK: Supple without adenopathy. LUNGS: Decreased breath sounds. HEART: Normal S1 and S2. No audible murmur. No rubs or gallops. ABDOMEN: Bowel sounds present. Soft, no tenderness appreciated. EXTREMITIES: No clubbing, cyanosis or trace edema. Erythema and tenderness at the palm over tendon. SKIN: No rash. NEUROLOGIC: Non focal. PSYCHIATRIC: Calm and cooperative. Assessment and Plan - Plan IMPRESSION: Fever and leukocytosis. Temp improved. WBC remain elevated. May be chronic. Nonproductive cough. Interstitial infiltrates on chest x-ray. Possible atypical pneumonia versus viral etiology vs CHF. Mycoplasma IgG is positive indicating infection some time in past. Complete heart block. Aortic valve replacement status. Palmar tendinitis/cellulitis. RECOMMENDATIONS: 1. Stop Azithromycin. 2. Give Keflex for hand cellulitis x 7 - 10 days. Follow white blood cell count.
--- NOTE | 2018-07-15 15:28 | XR ---
EXAM DATE: 07/15/2018 6:00 AM EDT AGE/SEX: 72 years / Male INDICATIONS: . Short of breath. Cough. CLINICAL DATA: This is the patient's subsequent encounter. Patient reports that signs and symptoms h ave been present for 2 weeks and indicates a pain score of 0/10. MEDICAL/SURGICAL HISTORY: None. CABG. H/O Right Thoracentesis. COMPARISON: C, CHEST 1V SINGLE AP, 07/14/2018. . FINDINGS: Frontal and lateral views of the chest demonstrate a normal-sized cardiac silhouette in this patient post median sternotomy and valve replacement. Left chest wall cardiac pacing device is present with l ead tips overlying the right heart. EKG lines overlie the patient on the frontal projection. There is blunting of the costophrenic sulci bilaterally indicating small bilateral effusions. No airspace con solidation or pneumothorax is identified. Bones and soft tissues demonstrate no acute finding. CONCLUSION: Small bilateral pleural effusions. No other acute abnormality is identified. Electronically signed by: Luis Eduardo Bales MD 07/15/2018 3:27 PM EDT
[2018-07-15] MEDS ORDERED: metOLazone 5 MG Tablet PO ONE (15:30)
--- NOTE | 2018-07-15 16:59 | P.PNIM ---
Subjective Interval history: C/O edema and discomfort in left hand offers no other complaints Physical Exam Vital signs: Vital Signs 07/14/18 17:00 07/14/18 17:41 07/14/18 19:00 Temperature 98.3 F Pulse Rate 63 60 60 Respiratory Rate 22 Blood Pressure 130/62 Pulse Oximetry 96 07/14/18 20:00 07/14/18 21:00 07/14/18 22:00 Temperature Pulse Rate 65 63 84 Respiratory Rate Blood Pressure Pulse Oximetry 07/14/18 22:59 07/14/18 23:00 07/15/18 00:00 Temperature 98.1 F Pulse Rate 61 60 60 Respiratory Rate 22 Blood Pressure 132/70 Pulse Oximetry 98 07/15/18 01:00 07/15/18 02:00 07/15/18 03:00 Temperature 98.1 F Pulse Rate 66 63 62 Respiratory Rate 22 Blood Pressure 148/72 H Pulse Oximetry 96 07/15/18 04:00 07/15/18 05:00 07/15/18 06:00 Temperature Pulse Rate 60 61 65 Respiratory Rate Blood Pressure Pulse Oximetry 07/15/18 07:00 07/15/18 08:00 07/15/18 09:00 Temperature 97.9 F Pulse Rate 64 63 69 Respiratory Rate 16 Blood Pressure 141/75 H Pulse Oximetry 96 07/15/18 10:00 07/15/18 11:00 07/15/18 12:00 Temperature 97.7 F Pulse Rate 59 L 62 60 Respiratory Rate 16 Blood Pressure 154/81 H Pulse Oximetry 96 07/15/18 12:53 07/15/18 14:00 07/15/18 15:00 Temperature 98 F Pulse Rate 59 L 62 63 Respiratory Rate 17 Blood Pressure 127/63 Pulse Oximetry 96 07/15/18 16:00 Temperature Pulse Rate 62 Respiratory Rate Blood Pressure Pulse Oximetry Intake & Output 07/14/18 07/15/18 07/15/18 18:59 06:59 18:59 Intake Total 1330 / 1330 480 / 480 Output Total 535 / 535 600 / 600 Balance 795 / 795 -120 / -120 Weight 80.5 kg Intake: IV 250 / 250 Oral 1080 / 1080 480 / 480 Output: Urine 535 / 535 600 / 600 Other: Date of Last Bowel Movement 07/14/18 # Bowel Movements 1 Narrative: GENERAL: This is a well-nourished, well-developed patient, in no apparent distress. CARDIOVASCULAR: Regular rate and rhythm without murmurs, gallops, or rubs. RESPIRATORY: Clear to auscultation. Breath sounds equal bilaterally. No wheezes , rales, or rhonchi. GASTROINTESTINAL: Abdomen soft, non-tender, nondistended. Normal active bowel sounds MUSCULOSKELETAL: Extremities without clubbing, cyanosis, or edema. NEURO: Alert & Oriented x4 to person, place, time, situation. Moves all ext x4 Results - Labs CBC & Chem 7: 07/17/18 05:09 07/17/18 05:09 Laboratory Results - last 24 hr 07/14/18 07/14/18 07/14/18 16:56 19:22 19:23 WBC RBC Hgb Hct MCV MCH MCHC RDW Plt Count MPV Neut % (Auto) Lymph % (Auto) [place] % (Auto) Eos % (Auto) Baso % (Auto) Neut # (Auto) Lymph # (Auto) [place] # (Auto) Eos # (Auto) Baso # (Auto) WBC Differential Differential Comment Sodium Potassium Chloride Carbon Dioxide Anion Gap BUN Creatinine Estimated GFR POC Glucose 229 H 323 H 304 H Random Glucose Calcium JAK2 Mutation (PCR) Calreticulin Mutation MPL Mut Analysis Result 07/15/18 07/15/18 07/15/18 02:47 04:39 04:39 WBC RBC Hgb Hct MCV MCH MCHC RDW Plt Count MPV Neut % (Auto) Lymph % (Auto) [place] % (Auto) Eos % (Auto) Baso % (Auto) Neut # (Auto) Lymph # (Auto) [place] # (Auto) Eos # (Auto) Baso # (Auto) WBC Differential Differential Comment Sodium Potassium Chloride Carbon Dioxide Anion Gap BUN Creatinine Estimated GFR POC Glucose 96 Random Glucose Calcium JAK2 Mutation (PCR) Cancelled Calreticulin Mutation Cancelled MPL Mut Analysis Result Cancelled 07/15/18 07/15/18 07/15/18 04:39 04:39 08:06 WBC 16.5 H RBC 3.29 L Hgb 9.6 L Hct 29.3 L MCV 89.1 MCH 29.1 MCHC 32.6 RDW 16.0 Plt Count 307 MPV 9.4 Neut % (Auto) 55.0 Lymph % (Auto) 29.9 [place] % (Auto) 10.5 H Eos % (Auto) 3.7 Baso % (Auto) 0.9 Neut # (Auto) 9.0 H Lymph # (Auto) 4.9 H [place] # (Auto) 1.7 H Eos # (Auto) 0.6 H Baso # (Auto) 0.1 WBC Differential . Differential Comment Auto diff final Sodium 137 Potassium 3.6 Chloride 99 Carbon Dioxide 29.7 Anion Gap 8 BUN 103 H Creatinine 2.22 H Estimated GFR 29 L POC Glucose 102 Random Glucose 84 Calcium 9.2 JAK2 Mutation (PCR) Calreticulin Mutation MPL Mut Analysis Result 07/15/18 11:56 WBC RBC Hgb Hct MCV MCH MCHC RDW Plt Count MPV Neut % (Auto) Lymph % (Auto) [place] % (Auto) Eos % (Auto) Baso % (Auto) Neut # (Auto) Lymph # (Auto) [place] # (Auto) Eos # (Auto) Baso # (Auto) WBC Differential Differential Comment Sodium Potassium Chloride Carbon Dioxide Anion Gap BUN Creatinine Estimated GFR POC Glucose 178 H Random Glucose Calcium JAK2 Mutation (PCR) Calreticulin Mutation MPL Mut Analysis Result - Imaging Impressions Chest X-Ray 07/15/18 06:00 CONCLUSION: Small bilateral pleural effusions. No other acute abnormality is identified. Assessment and Plan - Assessment (1) CHB (complete heart block) Code(s): I44.2 - Atrioventricular block, complete Status: Acute Plan: 1. CHB. junctional escape. ppm placed 07/07 2. CHF. preserved LVF. decompensated pleural effusion. mod right. small left. 3. SO 4. FEVER/Leukocytosis. pulmonary infiltrates. 5. Diabetes 6. HTN 7. chest pressure 8. hypokalemia 9. Palmar tendinitis/cellulitis - Pt had thoracentesis 07/11 with removal of 800ml fluid - Hold po bumex. cr improving. - stop metolazone - CXR 07/12 reviewed and reveals: Mild basilar airspace disease with small effusions. Primary differential diagnosis is mild congestive heart failure. Pacer leads overlie right atrium and right ventricle. - cont abx azithro per ID possible pna. rocephin stopped 07/08 - cont current bp medication - increase levemir to 15 units BID/ssi novolog - patient had episode of hypoglycemia blood glucose 44 07/12 AM, will DC medium dose regular insulin sliding scale ( patient received 10 units HS 07/11) -start Novolog low dose SSI ACHS and 3AM - replaced potassium - PT daily. - 07/12 Initial troponin result 5.11, discussed with Dr. Santillan request heparin drip, continue to trend serial troponin and NPO after midnight - serial troponin 5.11, 4.24 and 3.42 - Patient S/P cardiac catheterization 07/[address] Elmore 1. Severe single-vessel coronary artery disease involving the proximal left anterior descending coronary artery 2. Successful percutaneous coronary intervention with drug-eluting stent to the proximal left anterior descending coronary artery - awaiting ABIs - had episode of SOB, 07/14 - obtain CXR 07/15/18 Small bilateral pleural effusions. No other acute abnormality is identified. - Continue lasix 40mg IV BID with KCL - Keflex started by ID recommending 7- 10 days - recheck labs in AM (2) CHF (congestive heart failure) Code(s): I50.9 - Heart failure, unspecified Status: Acute (3) Fever Code(s): R50.9 - Fever, unspecified Status: Acute (4) Acute kidney injury Code(s): N17.9 - Acute kidney failure, unspecified Status: Acute - Attending Attestation Patient examined. Assessment and plan formulated with Shireen Salazar PA-C. I agree with the above.
--- NOTE | 2018-07-15 21:00 | P.PNNP ---
Subjective Interval history: Patient is alert, mild SOB, not in distress. Physical Exam Vital signs: Vital Signs 07/14/18 22:00 07/14/18 22:59 07/14/18 23:00 Temperature 98.1 F Pulse Rate 84 61 60 Respiratory Rate 22 Blood Pressure 132/70 Pulse Oximetry 98 07/15/18 00:00 07/15/18 01:00 07/15/18 02:00 Temperature Pulse Rate 60 66 63 Respiratory Rate Blood Pressure Pulse Oximetry 07/15/18 03:00 07/15/18 04:00 07/15/18 05:00 Temperature 98.1 F Pulse Rate 62 60 61 Respiratory Rate 22 Blood Pressure 148/72 H Pulse Oximetry 96 07/15/18 06:00 07/15/18 07:00 07/15/18 08:00 Temperature 97.9 F Pulse Rate 65 64 63 Respiratory Rate 16 Blood Pressure 141/75 H Pulse Oximetry 96 07/15/18 09:00 07/15/18 10:00 07/15/18 11:00 Temperature 97.7 F Pulse Rate 69 59 L 62 Respiratory Rate 16 Blood Pressure 154/81 H Pulse Oximetry 96 07/15/18 12:00 07/15/18 12:53 07/15/18 14:00 Temperature Pulse Rate 60 59 L 62 Respiratory Rate Blood Pressure Pulse Oximetry 07/15/18 15:00 07/15/18 16:00 07/15/18 17:00 Temperature 98 F Pulse Rate 63 62 74 Respiratory Rate 17 Blood Pressure 127/63 Pulse Oximetry 96 07/15/18 18:00 07/15/18 19:00 Temperature 98.3 F Pulse Rate 73 65 Respiratory Rate 18 Blood Pressure 124/66 Pulse Oximetry 97 Intake & Output 07/15/18 07/15/18 07/16/18 06:59 18:59 06:59 Intake Total 480 / 480 720 / 720 Output Total 600 / 600 460 / 460 Balance -120 / -120 260 / 260 Weight 80.5 kg Intake: Oral 480 / 480 720 / 720 Output: Urine 600 / 600 460 / 460 Other: Date of Last Bowel Movement 07/14/18 07/15/18 07/15/18 # Bowel Movements 1 2 Narrative: GENERAL: This is a well-nourished, well-developed patient, in no apparent distress. CARDIOVASCULAR: Regular rate and rhythm without murmurs, gallops, or rubs. PPM site clean with steristrips and no erythema. RESPIRATORY: Clear to auscultation. Breath sounds equal bilaterally. No wheezes , rales, or rhonchi. GASTROINTESTINAL: Abdomen soft, non-tender, nondistended. Normal active bowel sounds MUSCULOSKELETAL: 2+ edema bilateral LE. HEIN NEURO: Alert & Oriented x4 to person, place, time, situation. Moves all ext x4 Assessment and Plan - Assessment (1) Acute kidney injury Code(s): N17.9 - Acute kidney failure, unspecified Status: Acute Plan: (1) Acute kidney injury Code(s): N17.9 - Acute kidney failure, unspecified Status: Acute Plan: Acute kidney injury with creatinine of 2.60 on day of consult. SO possibly ATN from decreased cardiac output/ third spacing/ infection History of chronic kidney disease with mild proteinuria possibly from diabetic or hypertensive renal disease. Baseline creatinine not available but creatinine noted to be 1.20 April 2011 Renal ultrasound with no evidence of stone, masses or hydronephrosis Plan Monitor strict I+O Avoid nephrotoxins as possible S/P heart cath on 07/13 continue Lasix and metolazone. Creatinine is stable. Follow the BMP and the urine out put. (2) Anemia Code(s): D64.9 - Anemia, unspecified Status: Acute Plan: Hemoglobin stable Most likely from chronic disease (3) Complete heart block by electrocardiogram Code(s): I44.2 - Atrioventricular block, complete Status: Acute Plan: Pacemaker placement on 07/07 (4) Sepsis Code(s): A41.9 - Sepsis, unspecified organism (2) Anemia Code(s): D64.9 - Anemia, unspecified Status: Acute Plan: Hemoglobin stable 10.3 Most likely from chronic disease (3) Complete heart block by electrocardiogram Code(s): I44.2 - Atrioventricular block, complete Status: Acute Plan: Pacemaker placement on 07/07 (4) Sepsis Code(s): A41.9 - Sepsis, unspecified organism Status: Acute Plan: On antibiotics for possible pneumonia
[2018-07-16] MEDS: Insulin NovoLOG Aspart Correctional Sugar Inj SQ SCH ×5 (03:43→21:08)
[2018-07-16] MEDS: Insulin Detemir Inj 1,000 UNIT/10 ML Vial SQ SCH ×2 (09:08→21:09)
[2018-07-16] MEDS: Atenolol 100 MG Tablet PO SCH (09:08)
[2018-07-16] MEDS: metOLazone 5 MG Tablet PO SCH (09:08)
[2018-07-16] MEDS: Senna/Docusate Sodium 8.6/50 MG Tablet PO SCH ×2 (09:08→21:08)
[2018-07-16] MEDS: Nystatin 100,000 UNITS/GM Powder 15 GM Bottle TOPICAL SCH ×4 (09:09→21:09)
--- NOTE | 2018-07-16 09:58 | P.PNCA ---
Subjective Interval history: patient seen and examined. Breathing is stable. Mild dyspnea with exertion but none at rest. no chest pain. LE edema is worsening. I/O net +790cc overnight. Medications and Allergies Active Medications: Active Medications Acetaminophen (Tylenol) 650 mg PO Q6H PRN PRN Reason: TEMPERATURE > 100 F Last Admin: 07/01/18 22:08 Dose: 650 mg Acetaminophen (Tylenol) 650 mg PO Q4H PRN PRN Reason: PAIN SCALE 1 TO 2 Al Hydroxide/Mg Hydroxide (Milk Of Hannah Mathis) 30 ml PO Q12H PRN PRN Reason: Mild Constipation Last Admin: 07/11/18 21:36 Dose: 30 ml Albuterol (Albuterol Neb (Prn)) 2.5 mg NEB Q2HR NEB PRN PRN Reason: DYSPNEA Aspirin (Ecotrin) 81 mg PO DAILY [facility] Last Admin: 07/16/18 09:09 Dose: 81 mg Atenolol (Tenormin) 100 mg PO DAILY [facility] Last Admin: 07/16/18 09:08 Dose: 100 mg Benzocaine/Menthol (Cepacol Max Strength) 1 lozenge BUCCAL Q2H PRN PRN Reason: SORE THROAT Last Admin: 07/04/18 08:43 Dose: 1 lozenge Benzonatate (Tessalon Perles) 100 mg PO Q8H PRN PRN Reason: COUGH Last Admin: 07/06/18 00:28 Dose: 100 mg Bisacodyl (Dulcolax Supp) 10 mg RECTAL DAILY PRN PRN Reason: SEVERE CONSITIPATION Last Admin: 07/09/18 20:49 Dose: 10 mg Cephalexin Monohydrate (Keflex) 500 mg PO Q6HR [facility] Last Admin: 07/16/18 06:33 Dose: 500 mg Clopidogrel Bisulfate (Plavix) 75 mg PO DAILY [facility] Last Admin: 07/16/18 09:09 Dose: 75 mg Dextrose (D50w Vial) 50 ml IV.PUSH UNSCH PRN PRN Reason: PER HYPOGLYCEMIA PROTOCOL Furosemide (Lasix Inj) 40 mg IV.PUSH BID@0900,1800 [facility] Last Admin: 07/16/18 09:15 Dose: 40 mg Glucagon (Glucagon Inj) 1 mg OTHER PRN PRN PRN Reason: for Hypoglycemia Protocol Insulin Aspart (Novolog Insulin Correctional Sugar Inj) 0 unit SQ ACHS AND 3AM GLENIS; Protocol Last Admin: 07/16/18 09:08 Dose: 3 unit Insulin Detemir (Levemir Inj) 15 unit SQ BID [facility] Last Admin: 07/16/18 09:08 Dose: 15 unit Lactulose (Lactulose Liq) 30 ml PO DAILY PRN PRN Reason: SEVERE CONSITIPATION Magnesium Oxide (Mag-Ox) 800 mg PO UNSCH PRN PRN Reason: For Magnesium 1.2 - 1.6 mg/dL Metolazone (Zaroxolyn) 5 mg PO DAILY [facility] Last Admin: 07/16/18 09:08 Dose: 5 mg Morphine Sulfate (Morphine Inj) 2 mg IV.PUSH Q2H PRN PRN Reason: PAIN SCALE 6 TO 10 Last Admin: 07/07/18 20:25 Dose: 2 mg Multivitamins (Theragran) 1 tab PO DAILY [facility] Last Admin: 07/16/18 09:09 Dose: 1 tab Nystatin (Mycostatin Powder) 1 applicatio TOPICAL QID [facility] Last Admin: 07/16/18 09:09 Dose: 1 applicatio Ondansetron HCl (Zofran Inj) 4 mg IV.PUSH Q6H PRN PRN Reason: NAUSEA OR VOMITING Oxycodone HCl (Roxicodone) 5 mg PO Q4H PRN PRN Reason: Pain 1-5 Last Admin: 07/07/18 23:26 Dose: 5 mg Pantoprazole Sodium (Protonix) 40 mg PO DAILY [facility] Last Admin: 07/16/18 09:08 Dose: 40 mg Potassium Chloride (K-Dur) 20 meq PO DAILY [facility] Last Admin: 07/16/18 09:09 Dose: 20 meq Senna/Docusate Sodium (Amelia-Colace) 1 tab PO BID [facility] Last Admin: 07/16/18 09:08 Dose: 1 tab Sennosides (Senokot) 17.2 mg PO Q12H PRN PRN Reason: Moderate Constipation Last Admin: 07/09/18 14:32 Dose: 17.2 mg Sodium Chloride (Ns Flush) 2 ml IV.FLUSH BID [facility] Last Admin: 07/16/18 09:18 Dose: 2 ml Sodium Chloride (Ns Flush) 2 ml IV.FLUSH PRN PRN PRN Reason: FLUSH AFTER USING IV ACCESS Zolpidem Tartrate (Ambien) 10 mg PO HS PRN PRN Reason: SLEEP Last Admin: 07/15/18 21:48 Dose: 10 mg Allergies Allergy/AdvReac Type Severity Reaction Status Date / Time [id number] Reductase Allergy Severe muscle Verified 04/12/18 05:50 Inhibitor weakness atorvastatin Allergy Mild Verified 04/12/18 05:50 Home Medications Medication Instructions Recorded Confirmed Type amlodipine 10 mg PO DAILY 06/30/18 06/30/18 History aspirin 81 mg PO BID 06/30/18 07/02/18 History calcitriol 0.25 mcg PO DAILY 06/30/18 07/02/18 History cinnamon bark [Cinnamon] 1 cap PO BID 06/30/18 07/02/18 History coenzyme Q10 [CoQ-10] 100 mg PO DAILY 06/30/18 06/30/18 History diphenhydramine-acetaminophen 1 tab PO HS PRN 06/30/18 07/02/18 History [Tylenol PM Extra Strength] furosemide 40 mg PO BID 06/30/18 06/30/18 History glucosamine sulfate 1,000 mg PO BID 06/30/18 07/02/18 History insulin aspart U-100 [Novolog 5 unit SUB-Q AC BREAKFAST 06/30/18 06/30/18 History U-100 Insulin aspart] insulin aspart U-100 [Novolog 8 units SUB-Q AC DINNER 06/30/18 07/02/18 History U-100 Insulin aspart] insulin aspart U-100 [Novolog 8 units SUB-Q AC LUNCH 06/30/18 07/02/18 History U-100 Insulin aspart] insulin glargine [Lantus U-100 28 units SUB-Q HS 06/30/18 07/02/18 History Insulin] metformin 500 mg PO DAILY 06/30/18 07/02/18 History metoprolol tartrate 50 mg PO BID 06/30/18 06/30/18 History multivitamin 1 tab PO DAILY 06/30/18 07/02/18 History omega 6-shk-beu-fish oil [Fish Oil] 1,200 mg PO BID 06/30/18 07/02/18 History spironolactone 25 mg PO DAILY 06/30/18 06/30/18 History Physical Exam Vital signs: Vital Signs 07/15/18 10:00 07/15/18 11:00 07/15/18 12:00 Temperature 97.7 F Pulse Rate 59 L 62 60 Respiratory Rate 16 Blood Pressure 154/81 H Pulse Oximetry 96 07/15/18 12:53 07/15/18 14:00 07/15/18 15:00 Temperature 98 F Pulse Rate 59 L 62 63 Respiratory Rate 17 Blood Pressure 127/63 Pulse Oximetry 96 07/15/18 16:00 07/15/18 17:00 07/15/18 18:00 Temperature Pulse Rate 62 74 73 Respiratory Rate Blood Pressure Pulse Oximetry 07/15/18 19:00 07/15/18 20:00 07/15/18 21:00 Temperature 98.3 F Pulse Rate 65 64 64 Respiratory Rate 18 Blood Pressure 124/66 Pulse Oximetry 97 07/15/18 22:00 07/15/18 23:00 07/16/18 00:00 Temperature 98.1 F Pulse Rate 62 68 65 Respiratory Rate 18 Blood Pressure 134/65 Pulse Oximetry 96 07/16/18 01:00 07/16/18 02:00 07/16/18 03:00 Temperature 98.2 F Pulse Rate 63 64 69 Respiratory Rate 16 Blood Pressure 134/64 Pulse Oximetry 97 07/16/18 04:00 07/16/18 05:00 07/16/18 06:00 Temperature Pulse Rate 62 68 72 Respiratory Rate Blood Pressure Pulse Oximetry 07/16/18 07:27 Temperature 98.1 F Pulse Rate 66 Respiratory Rate 17 Blood Pressure 143/73 H Pulse Oximetry 95 Intake & Output 07/15/18 07/16/18 07/16/18 18:59 06:59 18:59 Intake Total 720 / 720 480 / 480 Output Total 460 / 460 Balance 260 / 260 480 / 480 Weight 84.5 kg Intake: Oral 720 / 720 480 / 480 Output: Urine 460 / 460 Other: # Voids 3 Date of Last Bowel Movement 07/15/18 07/15/18 07/15/18 # Bowel Movements 2 Narrative: GENERAL: This is a well-nourished, well-developed patient, in no apparent distress. CARDIOVASCULAR: Regular rate and rhythm without murmurs, gallops, or rubs. ppm guaze removed. incision under steri-strips, without erythema of tissue RESPIRATORY: Clear to auscultation. Breath sounds equal bilaterally. No wheezes , rales, or rhonchi. GASTROINTESTINAL: Abdomen soft, non-tender, nondistended. Normal active bowel sounds MUSCULOSKELETAL: Extremities without clubbing, cyanosis, 2-3+ BL LE EDEMA NEURO: Alert & Oriented x4 to person, place, time, situation. Moves all ext x4 Results 07/15/18 04:39 07/15/18 04:39 CBC 07/15/18 Range/Units 04:39 WBC 16.5 H (4.0-11.0) th/mm3 RBC 3.29 L (4.50-5.90) mil/mm3 Hgb 9.6 L (13.0-17.0) gm/dL Hct 29.3 L (39.0-51.0) % Plt Count 307 (150-450) th/mm3 Neut # (Auto) 9.0 H (1.8-7.7) th/mm3 Lymph # (Auto) 4.9 H (1.0-4.8) th/mm3 [place] # (Auto) 1.7 H (0.0-0.9) th/mm3 Eos # (Auto) 0.6 H (0.0-0.4) th/mm3 Baso # (Auto) 0.1 (0.0-0.2) th/mm3 Comprehensive Metabolic Panel 07/15/18 Range/Units 04:39 Sodium 137 (136-145) meq/L Potassium 3.6 (3.5-5.1) meq/L Chloride 99 (98-107) meq/L Carbon Dioxide 29.7 (21.0-32.0) meq/L BUN 103 H (7-18) mg/dL Creatinine 2.22 H (0.60-1.30) mg/dL Calcium 9.2 (8.5-10.1) mg/dL Intake and Output 07/15/18 07/16/18 07/16/18 22:59 06:59 14:59 Intake Total 720 / 720 480 / 480 Output Total 460 / 460 Balance 260 / 260 480 / 480 Intake: Oral 720 / 720 480 / 480 Output: Urine 460 / 460 Other: # Voids 3 Date of Last Bowel Movement 07/15/18 07/15/18 07/15/18 # Bowel Movements 2 Weight 84.5 kg - Imaging and Cardiology Imaging: Impressions Chest X-Ray 07/14/18 11:54 CONCLUSION: 1. Improved aeration at the lung bases and improved positive fluid balance. Chest X-Ray 07/15/18 06:00 CONCLUSION: Small bilateral pleural effusions. No other acute abnormality is identified. Assessment and Plan - Plan Assessment: Patient admitted as transfer from [facility] with CHB and junctional escape rhythm, hemodynamically stable in the setting of ADHF, fever, leukocytosis, and CKD stage 3. There was concern for possible bacterial endocarditis in this setting, however transthoracic echocardiogram and transesophageal echocardiogram did not reveal any valvular vegetations. LV systolic function is normal. Still with persistent LE edema. -CHB, with junctional escape rhythm, no s/p [employer] dual chamber PPM 07/07/18 -HFpEF -symptomatically improving with aggressive diuresis and thoracentesis . -Anasarca with lower extremity edema and hypoalbuminemia -Chronic Leukocytosis, cultures negative to date, was cleared by ID for pacemaker, hematology consult appreciated. -CKD stage 3, with SO, stable -CAD, asymptomatic -Moderate aortic bioprosthesis stenosis on echo, normal EF -HTN - better controlled -NSTEMI 07/12 s/p PCI to LAD lesion 07/13 Recommendations: -s/p PPM 07/07/18 - no lifting with left arm -Nephrology following for SO on CKD -Continue home ASA 81mg daily, and Plavix 75mg daily (DAPT) uninterrupted for minimum of 1 year. -Continue atenolol 100mg daily -Continue diuresis, continue metolazone -we may need to be more aggressive with diuretic therapy at expense of renal function. consider albumin. defer to nephrology.
--- NOTE | 2018-07-16 11:00 | P.PNNP ---
Subjective Interval history: Sitting up in chair with family at bedside. No new labs today. Shortness of breath and swelling improving. <Zuleika Vasquez - Last Filed: 07/16/18 10:57> Physical Exam Vital signs: Vital Signs 07/15/18 11:00 07/15/18 12:00 07/15/18 12:53 Temperature 97.7 F Pulse Rate 62 60 59 L Respiratory Rate 16 Blood Pressure 154/81 H Pulse Oximetry 96 07/15/18 14:00 07/15/18 15:00 07/15/18 16:00 Temperature 98 F Pulse Rate 62 63 62 Respiratory Rate 17 Blood Pressure 127/63 Pulse Oximetry 96 07/15/18 17:00 07/15/18 18:00 07/15/18 19:00 Temperature 98.3 F Pulse Rate 74 73 65 Respiratory Rate 18 Blood Pressure 124/66 Pulse Oximetry 97 07/15/18 20:00 07/15/18 21:00 07/15/18 22:00 Temperature Pulse Rate 64 64 62 Respiratory Rate Blood Pressure Pulse Oximetry 07/15/18 23:00 07/16/18 00:00 07/16/18 01:00 Temperature 98.1 F Pulse Rate 68 65 63 Respiratory Rate 18 Blood Pressure 134/65 Pulse Oximetry 96 07/16/18 02:00 07/16/18 03:00 07/16/18 04:00 Temperature 98.2 F Pulse Rate 64 69 62 Respiratory Rate 16 Blood Pressure 134/64 Pulse Oximetry 97 07/16/18 05:00 07/16/18 06:00 07/16/18 07:00 Temperature Pulse Rate 68 72 68 Respiratory Rate Blood Pressure Pulse Oximetry 07/16/18 07:27 07/16/18 08:00 07/16/18 09:00 Temperature 98.1 F Pulse Rate 66 68 66 Respiratory Rate 17 Blood Pressure 143/73 H Pulse Oximetry 95 07/16/18 10:00 Temperature Pulse Rate 66 Respiratory Rate Blood Pressure Pulse Oximetry Intake & Output 07/15/18 07/16/18 07/16/18 18:59 06:59 18:59 Intake Total 720 / 720 480 / 480 Output Total 460 / 460 Balance 260 / 260 480 / 480 Weight 84.5 kg Intake: Oral 720 / 720 480 / 480 Output: Urine 460 / 460 Other: # Voids 3 Date of Last Bowel Movement 07/15/18 07/15/18 07/15/18 # Bowel Movements 2 Narrative: GENERAL: This is a well-nourished, well-developed patient, in no apparent distress. CARDIOVASCULAR: Regular rate and rhythm without murmurs, gallops, or rubs. ppm uncision under steri-strips, without erythema of tissue RESPIRATORY: Clear to auscultation. Breath sounds equal bilaterally. No wheezes , rales, or rhonchi. GASTROINTESTINAL: Abdomen soft, non-tender, nondistended. Normal active bowel sounds MUSCULOSKELETAL: Extremities without clubbing, cyanosis, 2-3+ BL LE EDEMA NEURO: Alert & Oriented x4 to person, place, time, situation. Moves all ext x4 <Zuleika Vasquez - Last Filed: 07/16/18 10:57> Vital signs: Intake & Output 07/18/18 07/19/18 07/19/18 18:59 06:59 18:59 Other: Date of Last Bowel Movement 07/17/18 <Larry Acevedo - Last Filed: 07/19/18 15:10> Assessment and Plan - Assessment (1) Acute kidney injury Code(s): N17.9 - Acute kidney failure, unspecified Status: Acute Plan: Acute kidney injury with creatinine of 2.60 on day of consult. SO possibly ATN from decreased cardiac output/ third spacing/ infection History of chronic kidney disease with mild proteinuria possibly from diabetic or hypertensive renal disease. Baseline creatinine not available but creatinine noted to be 1.20 April 2011 Renal ultrasound with no evidence of stone, masses or hydronephrosis Plan Monitor strict I+O Avoid nephrotoxins as possible S/P heart cath on 07/13 continue Lasix and metolazone Follow the BMP and the urine out put. (2) Anemia Code(s): D64.9 - Anemia, unspecified Status: Acute Plan: Hemoglobin stable Most likely from chronic disease (3) Complete heart block by electrocardiogram Code(s): I44.2 - Atrioventricular block, complete Status: Acute Plan: Pacemaker placement on 07/07 (4) Sepsis Code(s): A41.9 - Sepsis, unspecified organism Status: Acute Plan: Antibiotics completed <Zuleika Vasquez - Last Filed: 07/16/18 10:57> - Assessment (1) Acute kidney injury Code(s): N17.9 - Acute kidney failure, unspecified Status: Acute Plan: Patient seen and examine, agree with above. Continue diuretics, with Lasix and Metolazone. (2) Anemia Code(s): D64.9 - Anemia, unspecified Status: Acute (3) Complete heart block by electrocardiogram Code(s): I44.2 - Atrioventricular block, complete Status: Acute (4) Sepsis Code(s): A41.9 - Sepsis, unspecified organism Status: Acute <Larry Acevedo - Last Filed: 07/19/18 15:10>
--- NOTE | 2018-07-16 17:15 | P.PNIM ---
Subjective Interval history: C/o continued pain at anterior left hand. Some improvement from yesterday. Pt now c/o pain at left ankle. Continued swelling at legs, but less tight today. Physical Exam Vital signs: 07/16/18 13:00 07/16/18 15:23 Temperature 97.7 F Pulse Rate 62 68 Respiratory Rate 17 Blood Pressure 145/67 H Pulse Oximetry 98 Narrative: GENERAL: This is a well-nourished, well-developed patient, in no apparent distress. CARDIOVASCULAR: Regular rate and rhythm without murmurs, gallops, or rubs. RESPIRATORY: Clear to auscultation. Breath sounds equal bilaterally. No wheezes , rales, or rhonchi. GASTROINTESTINAL: Abdomen soft, non-tender, nondistended. Normal active bowel sounds MUSCULOSKELETAL: 2+ edema x b/l NEURO: Alert & Oriented x4 to person, place, time, situation. Moves all ext x4 Results - Labs CBC & Chem 7: 07/17/18 05:09 07/17/18 05:09 07/16/18 07/16/18 11:00 11:33 Smear Path Review POC Glucose 149 H Ur 24 Hour Volume 1615 Ur Total Protein 24 Hr 1662 H Microbiology 07/15/18 13:35 Stool Stool for WBCs - Final No WBC's seen - Imaging Abdomen/Bladder Ultrasound 06/30/18 00:00 No evidence of hydronephrosis. Chest CT 06/30/18 00:00 1. Findings probably on the basis of mild failure with patchy consolidation of both lungs and mild thickening of the interlobular septa as well as small right and tiny left pleural effusions. 2. Right lower lobe consolidation likely compressive/dependent atelectasis. 3. Previous median sternotomy and aortic valve replacement. Nonunion of the manubrial defect. 4. Coronary artery calcification. 5. A few scattered nonspecific upper limits of normal size mediastinal lymph nodes. Venous Doppler Study 06/30/18 00:00 1. The study is negative for bilateral lower extremity deep venous thrombosis. Chest X-Ray 06/30/18 00:53 Interstitial prominence most characteristic of mild interstitial edema. Previous sternotomy. Chest X-Ray 07/01/18 07:58 Hypoaerated lungs with slightly less interstitial vascular prominence. Chest X-Ray 07/03/18 06:00 1. Stable mild interstitial edema. 2. Developing mild bibasilar airspace disease, presumably atelectasis. Chest X-Ray 07/07/18 00:00 New left subclavian bipolar pacer in good position. No evidence of pneumothorax. Pulmonary vessel congestion and pleural effusions remain. Chest CT 07/09/18 00:45 Interstitial edema with moderate pleural effusion on the right and small on the left. Chest X-Ray 07/11/18 00:00 1. Significantly improved aeration of the right lung following thoracentesis without pneumothorax. 2. Improved aeration of the left lower lung zone with persistent mild patchy airspace disease and likely trace pleural effusion. Thoracentesis Ultrasound 07/11/18 06:00 1. Uncomplicated right thoracentesis. Chest X-Ray 07/12/18 10:32 Mild basilar airspace disease with small effusions. Primary differential diagnosis is mild congestive heart failure. Pacer leads overlie right atrium and right ventricle. Chest X-Ray 07/14/18 11:54 1. Improved aeration at the lung bases and improved positive fluid balance. Chest X-Ray 07/15/18 06:00 Small bilateral pleural effusions. No other acute abnormality is identified. Assessment and Plan - Assessment (1) CHB (complete heart block) Code(s): I44.2 - Atrioventricular block, complete Status: Acute Plan: 1. CHB. junctional escape. ppm placed 07/07 2. CHF. preserved LVF. decompensated pleural effusion. mod right. small left. 3. SO 4. FEVER/Leukocytosis. pulmonary infiltrates. 5. Diabetes 6. HTN 7. chest pressure 8. hypokalemia 9. Palmar tendinitis/cellulitis - Pt had thoracentesis 07/11 with removal of 800ml fluid - CXR 07/12 reviewed and reveals: Mild basilar airspace disease with small effusions. Primary differential diagnosis is mild congestive heart failure. Pacer leads overlie right atrium and right ventricle. - cont abx azithro per ID possible pna. rocephin stopped 07/08 - cont current bp medication - levemir to 15 units BID/ssi novolog - novolog SSI - PT daily. - 07/12 Initial troponin result 5.11, discussed with Dr. Santillan request heparin drip, continue to trend serial troponin and NPO after midnight - serial troponin 5.11, 4.24 and 3.42 - Patient S/P cardiac catheterization 07/[address] Elmore 1. Severe single-vessel coronary artery disease involving the proximal left anterior descending coronary artery 2. Successful percutaneous coronary intervention with drug-eluting stent to the proximal left anterior descending coronary artery - awaiting ABIs - had episode of SOB, 07/14 - obtain CXR 07/15/18 Small bilateral pleural effusions. No other acute abnormality is identified. - Continue lasix 40mg IV BID with KCL - metolazone 5mg daily - Keflex started by ID recommending 7- 10 days - recheck labs in AM - pt now with left ankle pain - obtain x-ray series of left ankle - obtain uric acid (2) CHF (congestive heart failure) Code(s): I50.9 - Heart failure, unspecified Status: Acute (3) Fever Code(s): R50.9 - Fever, unspecified Status: Acute (4) Acute kidney injury Code(s): N17.9 - Acute kidney failure, unspecified Status: Acute
--- NOTE | 2018-07-16 17:38 | XR ---
EXAM DATE: 07/16/2018 12:00 AM EDT AGE/SEX: 72 years / Male INDICATIONS: Left ankle pain and swelling. CLINICAL DATA: This is the patient's subsequent encounter. Patient reports that signs and symptoms h ave been present for 1 month and indicates a pain score of 9/10. MEDICAL/SURGICAL HISTORY: Hypertension. Diabetes mellitus type II. None. COMPARISON: No prior exams available for comparison. FINDINGS: There is moderate soft tissue swelling about the ankle. The osseous structures are normal alignment. No fracture seen. The ankle mortise is intact. No radiopaque foreign bodies. CONCLUSION: Diffuse soft tissue swelling. No fracture seen. Electronically signed by: Fantasma Crain MD 07/16/2018 5:37 PM EDT
[2018-07-16 20:21] VITALS: RESP 16
[2018-07-17] MEDS: Insulin NovoLOG Aspart Correctional Sugar Inj SQ SCH ×5 (03:12→20:46)
[2018-07-17 05:18] LABS: Baso # (Auto) 0.2 th/mm3 (0.0-0.2); Baso % (Auto) 1.3 % (0.0-2.0); Eos # (Auto) 0.6 th/mm3 (0.0-0.4); Eos % (Auto) 3.9 % (0.0-4.0); Hematocrit 27.3 % (39.0-51.0); Lymph # (Auto) 4.4 th/mm3 (1.0-4.8); Lymph % (Auto) 27.5 % (9.0-44.0); Mean Corpuscular HGB Conc 32.9 % (32.0-36.0); Mean Corpuscular Hemoglobin 29.4 pg (27.0-34.0); Mean Corpuscular Volume 89.4 fL (80.0-100.0); Mean Platelet Volume 9.7 fL (7.0-11.0); Mono # (Auto) 1.9 th/mm3 (0.0-0.9); Mono % (Auto) 11.7 % (0.0-8.0); Neut # (Auto) 8.9 th/mm3 (1.8-7.7); Neut % (Auto) 55.6 % (16.0-70.0); Platelet Count 280 th/mm3 (150-450); Red Blood Count 3.05 mil/mm3 (4.50-5.90); Red Cell Distribution Width 15.9 % (11.6-17.2)
[2018-07-17 05:32] LABS: Albumin 2.5 g/dL (3.4-5.0); Calcium 8.6 mg/dL (8.5-10.1); Carbon Dioxide 25.7 meq/L (21.0-32.0); Uric Acid 10.1 mg/dl (2.6-7.2)
[2018-07-17 05:33] LABS: Phosphorus 4.4 mg/dL (2.5-4.9)
[2018-07-17] MEDS: Senna/Docusate Sodium 8.6/50 MG Tablet PO SCH ×2 (08:22→20:46)
[2018-07-17] MEDS: metOLazone 5 MG Tablet PO SCH (08:22)
[2018-07-17] MEDS: Nystatin 100,000 UNITS/GM Powder 15 GM Bottle TOPICAL SCH ×4 (08:23→20:52)
[2018-07-17] MEDS: Insulin Detemir Inj 1,000 UNIT/10 ML Vial SQ SCH (08:23)
[2018-07-17] MEDS: Atenolol 100 MG Tablet PO SCH (08:26)
--- NOTE | 2018-07-17 10:26 | P.PNCA ---
Subjective Interval history: Patient seen and examined. LE edema is still 3+ and unchanged. Breathing is stable. Still HINES but none at rest. No chest pain. BUN continues to rise 52-->107 currently. Cr stable 2.2. Medications and Allergies Active Medications: Active Medications Acetaminophen (Tylenol) 650 mg PO Q6H PRN PRN Reason: TEMPERATURE > 100 F Last Admin: 07/01/18 22:08 Dose: 650 mg Acetaminophen (Tylenol) 650 mg PO Q4H PRN PRN Reason: PAIN SCALE 1 TO 2 Al Hydroxide/Mg Hydroxide (Milk Of Hannah Liq) 30 ml PO Q12H PRN PRN Reason: Mild Constipation Last Admin: 07/11/18 21:36 Dose: 30 ml Albuterol (Albuterol Neb (Prn)) 2.5 mg NEB Q2HR NEB PRN PRN Reason: DYSPNEA Aspirin (Ecotrin) 81 mg PO DAILY [facility] Last Admin: 07/17/18 08:22 Dose: 81 mg Atenolol (Tenormin) 100 mg PO DAILY [facility] Last Admin: 07/17/18 08:26 Dose: 100 mg Benzocaine/Menthol (Cepacol Max Strength) 1 lozenge BUCCAL Q2H PRN PRN Reason: SORE THROAT Last Admin: 07/04/18 08:43 Dose: 1 lozenge Benzonatate (Tessalon Perles) 100 mg PO Q8H PRN PRN Reason: COUGH Last Admin: 07/06/18 00:28 Dose: 100 mg Bisacodyl (Dulcolax Supp) 10 mg RECTAL DAILY PRN PRN Reason: SEVERE CONSITIPATION Last Admin: 07/09/18 20:49 Dose: 10 mg Cephalexin Monohydrate (Keflex) 500 mg PO Q6HR [facility] Last Admin: 07/17/18 06:14 Dose: 500 mg Clopidogrel Bisulfate (Plavix) 75 mg PO DAILY [facility] Last Admin: 07/17/18 08:22 Dose: 75 mg Dextrose (D50w Vial) 50 ml IV.PUSH UNSCH PRN PRN Reason: PER HYPOGLYCEMIA PROTOCOL Furosemide (Lasix Inj) 40 mg IV.PUSH BID@0900,1800 [facility] Last Admin: 07/17/18 08:26 Dose: 40 mg Glucagon (Glucagon Inj) 1 mg OTHER PRN PRN PRN Reason: for Hypoglycemia Protocol Insulin Aspart (Novolog Insulin Correctional Sugar Inj) 0 unit SQ ACHS AND 3AM GLENIS; Protocol Last Admin: 07/17/18 07:26 Dose: Not Given Insulin Detemir (Levemir Inj) 15 unit SQ DAILY [facility] Insulin Detemir (Levemir Inj) 10 unit SQ HS [facility] Lactulose (Lactulose Liq) 30 ml PO DAILY PRN PRN Reason: SEVERE CONSITIPATION Magnesium Oxide (Mag-Ox) 800 mg PO UNSCH PRN PRN Reason: For Magnesium 1.2 - 1.6 mg/dL Metolazone (Zaroxolyn) 5 mg PO DAILY [facility] Last Admin: 07/17/18 08:22 Dose: 5 mg Morphine Sulfate (Morphine Inj) 2 mg IV.PUSH Q2H PRN PRN Reason: PAIN SCALE 6 TO 10 Last Admin: 07/07/18 20:25 Dose: 2 mg Multivitamins (Theragran) 1 tab PO DAILY [facility] Last Admin: 07/17/18 08:22 Dose: 1 tab Nystatin (Mycostatin Powder) 1 applicatio TOPICAL QID [facility] Last Admin: 07/17/18 08:23 Dose: 1 applicatio Ondansetron HCl (Zofran Inj) 4 mg IV.PUSH Q6H PRN PRN Reason: NAUSEA OR VOMITING Oxycodone HCl (Roxicodone) 5 mg PO Q4H PRN PRN Reason: Pain 1-5 Last Admin: 07/07/18 23:26 Dose: 5 mg Pantoprazole Sodium (Protonix) 40 mg PO DAILY [facility] Last Admin: 07/17/18 08:22 Dose: 40 mg Potassium Chloride (K-Dur) 20 meq PO DAILY [facility] Last Admin: 07/17/18 08:22 Dose: 20 meq Senna/Docusate Sodium (Amelia-Colace) 1 tab PO BID [facility] Last Admin: 07/17/18 08:22 Dose: 1 tab Sennosides (Senokot) 17.2 mg PO Q12H PRN PRN Reason: Moderate Constipation Last Admin: 07/09/18 14:32 Dose: 17.2 mg Sodium Chloride (Ns Flush) 2 ml IV.FLUSH BID [facility] Last Admin: 07/17/18 08:23 Dose: 2 ml Sodium Chloride (Ns Flush) 2 ml IV.FLUSH PRN PRN PRN Reason: FLUSH AFTER USING IV ACCESS Zolpidem Tartrate (Ambien) 10 mg PO HS PRN PRN Reason: SLEEP Last Admin: 07/16/18 23:42 Dose: 10 mg Allergies Allergy/AdvReac Type Severity Reaction Status Date / Time [id number]-Owb-Mhw Reductase Allergy Severe muscle Verified 04/12/18 05:50 Inhibitor weakness atorvastatin Allergy Mild Verified 04/12/18 05:50 Home Medications Medication Instructions Recorded Confirmed Type amlodipine 10 mg PO DAILY 06/30/18 06/30/18 History aspirin 81 mg PO BID 06/30/18 07/02/18 History calcitriol 0.25 mcg PO DAILY 06/30/18 07/02/18 History cinnamon bark [Cinnamon] 1 cap PO BID 06/30/18 07/02/18 History coenzyme Q10 [CoQ-10] 100 mg PO DAILY 06/30/18 06/30/18 History diphenhydramine-acetaminophen 1 tab PO HS PRN 06/30/18 07/02/18 History [Tylenol PM Extra Strength] furosemide 40 mg PO BID 06/30/18 06/30/18 History glucosamine sulfate 1,000 mg PO BID 06/30/18 07/02/18 History insulin aspart U-100 [Novolog 5 unit SUB-Q AC BREAKFAST 06/30/18 06/30/18 History U-100 Insulin aspart] insulin aspart U-100 [Novolog 8 units SUB-Q AC DINNER 06/30/18 07/02/18 History U-100 Insulin aspart] insulin aspart U-100 [Novolog 8 units SUB-Q AC LUNCH 06/30/18 07/02/18 History U-100 Insulin aspart] insulin glargine [Lantus U-100 28 units SUB-Q HS 06/30/18 07/02/18 History Insulin] metformin 500 mg PO DAILY 06/30/18 07/02/18 History metoprolol tartrate 50 mg PO BID 06/30/18 06/30/18 History multivitamin 1 tab PO DAILY 06/30/18 07/02/18 History omega 2-hdf-ehy-fish oil [Fish Oil] 1,200 mg PO BID 06/30/18 07/02/18 History spironolactone 25 mg PO DAILY 06/30/18 06/30/18 History Physical Exam Vital signs: Vital Signs 07/16/18 11:00 07/16/18 11:17 07/16/18 12:00 Temperature 97.3 F L Pulse Rate 63 62 62 Respiratory Rate 17 Blood Pressure 145/67 H Pulse Oximetry 99 07/16/18 13:00 07/16/18 14:00 07/16/18 15:00 Temperature Pulse Rate 62 62 62 Respiratory Rate Blood Pressure Pulse Oximetry 07/16/18 15:23 07/16/18 16:00 07/16/18 17:00 Temperature 97.7 F Pulse Rate 68 60 68 Respiratory Rate 17 Blood Pressure 145/67 H Pulse Oximetry 98 07/16/18 18:00 07/16/18 19:00 07/16/18 20:00 Temperature 98.5 F Pulse Rate 62 64 62 Respiratory Rate 16 Blood Pressure 141/65 H Pulse Oximetry 98 07/16/18 21:00 07/16/18 22:00 07/16/18 23:00 Temperature 99.1 F Pulse Rate 63 66 64 Respiratory Rate 16 Blood Pressure 141/73 H Pulse Oximetry 98 07/17/18 00:00 07/17/18 01:00 07/17/18 02:00 Temperature Pulse Rate 64 66 70 Respiratory Rate Blood Pressure Pulse Oximetry 07/17/18 03:00 07/17/18 04:00 07/17/18 05:00 Temperature 98.6 F Pulse Rate 66 67 66 Respiratory Rate 16 Blood Pressure 142/77 H Pulse Oximetry 98 07/17/18 06:00 07/17/18 07:00 07/17/18 08:00 Temperature 98.4 F Pulse Rate 68 69 66 Respiratory Rate 16 Blood Pressure 145/67 H Pulse Oximetry 97 07/17/18 09:00 07/17/18 10:00 Temperature Pulse Rate 65 61 Respiratory Rate Blood Pressure Pulse Oximetry Intake & Output 07/16/18 07/17/18 07/17/18 18:59 06:59 18:59 Intake Total 942 / 942 480 / 480 Output Total 650 / 650 1110 / 1110 Balance 292 / 292 -630 / -630 Weight 83.9 kg Intake: Oral 942 / 942 480 / 480 Output: Urine 650 / 650 1110 / 1110 Other: Date of Last Bowel Movement 07/15/18 07/15/18 Narrative: GENERAL: This is a well-nourished, well-developed patient, in no apparent distress. CARDIOVASCULAR: Regular rate and rhythm without murmurs, gallops, or rubs. PPM site clean with steristrips and no erythema. RESPIRATORY: Clear to auscultation. Breath sounds equal bilaterally. No wheezes , rales, or rhonchi. GASTROINTESTINAL: Abdomen soft, non-tender, nondistended. Normal active bowel sounds MUSCULOSKELETAL: 3+ edema bilateral LE NEURO: Alert & Oriented x4 to person, place, time, situation. Moves all ext x4 Results 07/17/18 05:09 07/17/18 05:09 CBC 07/17/18 Range/Units 05:09 WBC 16.0 H (4.0-11.0) th/mm3 RBC 3.05 L (4.50-5.90) mil/mm3 Hgb 9.0 L (13.0-17.0) gm/dL Hct 27.3 L (39.0-51.0) % Plt Count 280 (150-450) th/mm3 Neut # (Auto) 8.9 H (1.8-7.7) th/mm3 Lymph # (Auto) 4.4 (1.0-4.8) th/mm3 [place] # (Auto) 1.9 H (0.0-0.9) th/mm3 Eos # (Auto) 0.6 H (0.0-0.4) th/mm3 Baso # (Auto) 0.2 (0.0-0.2) th/mm3 Comprehensive Metabolic Panel 07/17/18 Range/Units 05:09 Sodium 138 (136-145) meq/L Potassium 4.0 (3.5-5.1) meq/L Chloride 101 (98-107) meq/L Carbon Dioxide 25.7 (21.0-32.0) meq/L BUN 107 H (7-18) mg/dL Creatinine 2.14 H (0.60-1.30) mg/dL Calcium 8.6 (8.5-10.1) mg/dL Albumin 2.5 L (3.4-5.0) g/dL Intake and Output 07/16/18 07/17/18 07/17/18 22:59 06:59 14:59 Intake Total 942 / 942 480 / 480 Output Total 650 / 650 1110 / 1110 Balance 292 / 292 -630 / -630 Intake: Oral 942 / 942 480 / 480 Output: Urine 650 / 650 1110 / 1110 Other: Date of Last Bowel Movement 07/15/18 07/15/18 Weight 83.9 kg - Imaging and Cardiology Imaging: Impressions Chest X-Ray 07/15/18 06:00 CONCLUSION: Small bilateral pleural effusions. No other acute abnormality is identified. Ankle X-Ray 07/16/18 00:00 CONCLUSION: Diffuse soft tissue swelling. No fracture seen. Assessment and Plan - Plan Assessment: Patient admitted as transfer from [facility] with CHB and junctional escape rhythm, hemodynamically stable in the setting of ADHF, fever, leukocytosis, and CKD stage 3. There was concern for possible bacterial endocarditis in this setting, however transthoracic echocardiogram and transesophageal echocardiogram did not reveal any valvular vegetations. LV systolic function is normal. Still with persistent LE edema and worsening renal function. -CKD stage 3, with SO, stable cR with worsening BUN 52-->107 on current diuretic therapy -CHB, with junctional escape rhythm, no s/p [employer] dual chamber PPM 07/07/18 -HFpEF -symptomatically improving with aggressive diuresis and thoracentesis . -Anasarca with lower extremity edema and hypoalbuminemia -Chronic Leukocytosis, cultures negative to date, was cleared by ID for pacemaker, hematology consult appreciated. -CAD, asymptomatic -Moderate aortic bioprosthesis stenosis on echo, normal EF -HTN - better controlled -NSTEMI 07/12 s/p PCI to LAD lesion 07/13 Recommendations: -Nephrology following for SO on CKD, with BUN elevating 52-->107 with NO improvement in LE edema since admission. Question when is appropriate timing for discussion between patient and nephrology for possible ultrafiltration. -s/p PPM 07/07/18 - no lifting with left arm -Continue home ASA 81mg daily, and Plavix 75mg daily (DAPT) uninterrupted for minimum of 1 year. -Continue atenolol 100mg daily -Continue diuresis, continue metolazone
--- NOTE | 2018-07-17 10:56 | P.PNNP ---
Subjective Interval history: Patient is sitting on the chair, no SOB, now on room air. Physical Exam Vital signs: Vital Signs 07/16/18 11:00 07/16/18 11:17 07/16/18 12:00 Temperature 97.3 F L Pulse Rate 63 62 62 Respiratory Rate 17 Blood Pressure 145/67 H Pulse Oximetry 99 07/16/18 13:00 07/16/18 14:00 07/16/18 15:00 Temperature Pulse Rate 62 62 62 Respiratory Rate Blood Pressure Pulse Oximetry 07/16/18 15:23 07/16/18 16:00 07/16/18 17:00 Temperature 97.7 F Pulse Rate 68 60 68 Respiratory Rate 17 Blood Pressure 145/67 H Pulse Oximetry 98 07/16/18 18:00 07/16/18 19:00 07/16/18 20:00 Temperature 98.5 F Pulse Rate 62 64 62 Respiratory Rate 16 Blood Pressure 141/65 H Pulse Oximetry 98 07/16/18 21:00 07/16/18 22:00 07/16/18 23:00 Temperature 99.1 F Pulse Rate 63 66 64 Respiratory Rate 16 Blood Pressure 141/73 H Pulse Oximetry 98 07/17/18 00:00 07/17/18 01:00 07/17/18 02:00 Temperature Pulse Rate 64 66 70 Respiratory Rate Blood Pressure Pulse Oximetry 07/17/18 03:00 07/17/18 04:00 07/17/18 05:00 Temperature 98.6 F Pulse Rate 66 67 66 Respiratory Rate 16 Blood Pressure 142/77 H Pulse Oximetry 98 07/17/18 06:00 07/17/18 07:00 07/17/18 08:00 Temperature 98.4 F Pulse Rate 68 69 66 Respiratory Rate 16 Blood Pressure 145/67 H Pulse Oximetry 97 07/17/18 09:00 07/17/18 10:00 Temperature Pulse Rate 65 61 Respiratory Rate Blood Pressure Pulse Oximetry Intake & Output 07/16/18 07/17/18 07/17/18 18:59 06:59 18:59 Intake Total 942 / 942 480 / 480 Output Total 650 / 650 1110 / 1110 Balance 292 / 292 -630 / -630 Weight 83.9 kg Intake: Oral 942 / 942 480 / 480 Output: Urine 650 / 650 1110 / 1110 Other: Date of Last Bowel Movement 07/15/18 07/15/18 Narrative: GENERAL: This is a well-nourished, well-developed patient, in no apparent distress. CARDIOVASCULAR: Regular rate and rhythm without murmurs, gallops, or rubs. PPM site clean with steristrips and no erythema. RESPIRATORY: Clear to auscultation. Breath sounds equal bilaterally. No wheezes , rales, or rhonchi. GASTROINTESTINAL: Abdomen soft, non-tender, nondistended. Normal active bowel sounds MUSCULOSKELETAL: 3+ edema bilateral LE NEURO: Alert & Oriented x4 to person, place, time, situation. Moves all ext x4 Assessment and Plan - Assessment (1) Acute kidney injury Code(s): N17.9 - Acute kidney failure, unspecified Status: Acute Plan: Acute kidney injury with creatinine of 2.60 on day of consult. SO possibly ATN from decreased cardiac output/ third spacing/ infection History of chronic kidney disease with mild proteinuria possibly from diabetic or hypertensive renal disease. Baseline creatinine not available but creatinine noted to be 1.20 April 2011 Renal ultrasound with no evidence of stone, masses or hydronephrosis Plan Monitor strict I+O Avoid nephrotoxins as possible S/P heart cath on 07/13 continue Lasix and metolazone Follow the BMP and the urine out put. Creatinine is stable at 2.1-2.2. Has Proteinuria of 1.6 gm. Allopurinol for high uric acid. (2) Anemia Code(s): D64.9 - Anemia, unspecified Status: Acute Plan: Hemoglobin stable Most likely from chronic disease (3) Complete heart block by electrocardiogram Code(s): I44.2 - Atrioventricular block, complete Status: Acute Plan: Pacemaker placement on 07/07 (4) Sepsis Code(s): A41.9 - Sepsis, unspecified organism Status: Acute Plan: Antibiotics completed
[2018-07-17] MEDS: Allopurinol 100 MG Tablet PO SCH (11:32)
[2018-07-17] MEDS: MethylPREDNISolone Sod Succinate Inj 125 MG/2 ML Vial IV.PUSH SCH (15:16)
--- NOTE | 2018-07-17 15:22 | P.PNIM ---
Subjective Interval history: Patient reports continued pain and swelling left ankle left hand pain improved Continues to have BLE edema denies SOB Physical Exam Vital signs: Vital Signs 07/16/18 15:23 07/16/18 16:00 07/16/18 17:00 Temperature 97.7 F Pulse Rate 68 60 68 Respiratory Rate 17 Blood Pressure 145/67 H Pulse Oximetry 98 07/16/18 18:00 07/16/18 19:00 07/16/18 20:00 Temperature 98.5 F Pulse Rate 62 64 62 Respiratory Rate 16 Blood Pressure 141/65 H Pulse Oximetry 98 07/16/18 21:00 07/16/18 22:00 07/16/18 23:00 Temperature 99.1 F Pulse Rate 63 66 64 Respiratory Rate 16 Blood Pressure 141/73 H Pulse Oximetry 98 07/17/18 00:00 07/17/18 01:00 07/17/18 02:00 Temperature Pulse Rate 64 66 70 Respiratory Rate Blood Pressure Pulse Oximetry 07/17/18 03:00 07/17/18 04:00 07/17/18 05:00 Temperature 98.6 F Pulse Rate 66 67 66 Respiratory Rate 16 Blood Pressure 142/77 H Pulse Oximetry 98 07/17/18 06:00 07/17/18 07:00 07/17/18 08:00 Temperature 98.4 F Pulse Rate 68 69 66 Respiratory Rate 16 Blood Pressure 145/67 H Pulse Oximetry 97 07/17/18 09:00 07/17/18 10:00 07/17/18 11:00 Temperature 98.6 F Pulse Rate 65 61 61 Respiratory Rate 16 Blood Pressure 134/65 Pulse Oximetry 99 07/17/18 12:00 07/17/18 13:00 07/17/18 14:00 Temperature Pulse Rate 66 61 59 L Respiratory Rate Blood Pressure Pulse Oximetry Intake & Output 07/16/18 07/17/18 07/17/18 18:59 06:59 18:59 Intake Total 942 / 942 480 / 480 Output Total 650 / 650 1110 / 1110 Balance 292 / 292 -630 / -630 Weight 83.9 kg Intake: Oral 942 / 942 480 / 480 Output: Urine 650 / 650 1110 / 1110 Other: Date of Last Bowel Movement 07/15/18 07/15/18 Narrative: GENERAL: This is a well-nourished, well-developed patient, in no apparent distress. CARDIOVASCULAR: Regular rate and rhythm PPM site clean with steristrips present no erythema. RESPIRATORY: GASTROINTESTINAL: Abdomen soft, non-tender, nondistended. Normal active bowel sounds MUSCULOSKELETAL: 3+ edema bilateral LE NEURO: Alert & Oriented x4 to person, place, time, situation. Moves all ext x4 Results - Labs CBC & Chem 7: 07/18/18 03:25 07/18/18 03:25 Laboratory Results - last 24 hr 07/16/18 07/16/18 07/17/18 17:16 20:32 03:06 WBC RBC Hgb Hct MCV MCH MCHC RDW Plt Count MPV Neut % (Auto) Lymph % (Auto) Whitley % (Auto) Eos % (Auto) Baso % (Auto) Neut # (Auto) Lymph # (Auto) [place] # (Auto) Eos # (Auto) Baso # (Auto) WBC Differential Differential Comment Sodium Potassium Chloride Carbon Dioxide Anion Gap BUN Creatinine Estimated GFR POC Glucose 213 H 347 H 65 L Random Glucose Uric Acid Calcium Phosphorus Albumin 07/17/18 07/17/18 07/17/18 03:27 03:47 05:09 WBC 16.0 H RBC 3.05 L Hgb 9.0 L Hct 27.3 L MCV 89.4 MCH 29.4 MCHC 32.9 RDW 15.9 Plt Count 280 MPV 9.7 Neut % (Auto) 55.6 Lymph % (Auto) 27.5 Whitley % (Auto) 11.7 H Eos % (Auto) 3.9 Baso % (Auto) 1.3 Neut # (Auto) 8.9 H Lymph # (Auto) 4.4 Whitley # (Auto) 1.9 H Eos # (Auto) 0.6 H Baso # (Auto) 0.2 WBC Differential . Differential Comment Auto diff final Sodium Potassium Chloride Carbon Dioxide Anion Gap BUN Creatinine Estimated GFR POC Glucose 82 111 H Random Glucose Uric Acid Calcium Phosphorus Albumin 07/17/18 07/17/18 05:09 10:58 WBC RBC Hgb Hct MCV MCH MCHC RDW Plt Count MPV Neut % (Auto) Lymph % (Auto) [place] % (Auto) Eos % (Auto) Baso % (Auto) Neut # (Auto) Lymph # (Auto) [place] # (Auto) Eos # (Auto) Baso # (Auto) WBC Differential Differential Comment Sodium 138 Potassium 4.0 Chloride 101 Carbon Dioxide 25.7 Anion Gap 11 BUN 107 H Creatinine 2.14 H Estimated GFR 31 L POC Glucose 209 H Random Glucose 118 H Uric Acid 10.1 H Calcium 8.6 Phosphorus 4.4 Albumin 2.5 L - Imaging Impressions Ankle X-Ray 07/16/18 00:00 CONCLUSION: Diffuse soft tissue swelling. No fracture seen. Assessment and Plan - Assessment (1) CHB (complete heart block) Code(s): I44.2 - Atrioventricular block, complete Status: Acute Plan: 1. CHB. junctional escape. ppm placed 07/07 2. CHF. preserved LVF. decompensated pleural effusion. mod right. small left. 3. SO 4. FEVER/Leukocytosis. pulmonary infiltrates. 5. Diabetes 6. HTN 7. chest pressure 8. hypokalemia 9. Palmar tendinitis/cellulitis - Pt had thoracentesis 07/11 with removal of 800ml fluid - CXR 07/12 reviewed and reveals: Mild basilar airspace disease with small effusions. Primary differential diagnosis is mild congestive heart failure. Pacer leads overlie right atrium and right ventricle. - cont abx azithro per ID possible pna. rocephin stopped 07/08 - cont current bp medication - levemir to 15 units AM and 10 units PM - novolog SSI - PT daily. - 07/12 Initial troponin result 5.11, discussed with Dr. Santillan request heparin drip, continue to trend serial troponin and NPO after midnight - serial troponin 5.11, 4.24 and 3.42 - Patient S/P cardiac catheterization 07/[address] Elmore 1. Severe single-vessel coronary artery disease involving the proximal left anterior descending coronary artery 2. Successful percutaneous coronary intervention with drug-eluting stent to the proximal left anterior descending coronary artery - had episode of SOB, 07/14 - obtain CXR 07/15/18 Small bilateral pleural effusions. No other acute abnormality is identified. - Continue lasix 40mg IV BID with KCL - metolazone 5mg daily - Keflex started by ID recommending (07/16) 7- 10 days - recheck labs in AM - 07/16 pt now with left ankle pain - elevated uric acid 10.1 - start solu-medrol 60mg IV daily, monitor blood glucose closely - left ankle x ray reviewed and reveals: Diffuse soft tissue swelling. No fracture seen - Patient also followed by cardiology per cardiology -Nephrology following for SO on CKD, with BUN elevating 52-->107 with NO improvement in LE edema since admission. Question when is appropriate timing for discussion between patient and nephrology for possible ultrafiltration. - Per nephrology: Monitor strict I+O Avoid nephrotoxins as possible continue Lasix and metolazone Follow the BMP and the urine out put. Creatinine is stable at 2.1-2.2. Has Proteinuria of 1.6 gm. - recheck BMP in AM (2) CHF (congestive heart failure) Code(s): I50.9 - Heart failure, unspecified Status: Acute (3) Fever Code(s): R50.9 - Fever, unspecified Status: Acute (4) Acute kidney injury Code(s): N17.9 - Acute kidney failure, unspecified Status: Acute - Attending Attestation Patient examined. Assessment and plan formulated with Shireen Salazar PA-C. I agree with the above.
[2018-07-17] MEDS ORDERED: Insulin Detemir Inj 1,000 UNIT/10 ML Vial SQ SCH (21:00)
[2018-07-18] MEDS: Insulin NovoLOG Aspart Correctional Sugar Inj SQ SCH ×3 (03:31→11:57)
[2018-07-18 04:55] LABS: Baso % (Auto) 0.3 % (0.0-2.0); Hematocrit 26.2 % (39.0-51.0); Hemoglobin 8.7 gm/dL (13.0-17.0); Lymph % (Auto) 30.9 % (9.0-44.0); Mean Corpuscular HGB Conc 33.3 % (32.0-36.0); Mean Corpuscular Hemoglobin 30.1 pg (27.0-34.0); Mean Corpuscular Volume 90.3 fL (80.0-100.0); Mean Platelet Volume 10.8 fL (7.0-11.0); Mono # (Auto) 0.6 th/mm3 (0.0-0.9); Mono % (Auto) 6.8 % (0.0-8.0); Neut # (Auto) 5.9 th/mm3 (1.8-7.7); Platelet Count 264 th/mm3 (150-450); Red Cell Distribution Width 15.5 % (11.6-17.2); White Blood Count 9.5 th/mm3 (4.0-11.0)
[2018-07-18 05:32] LABS: Calcium 8.7 mg/dL (8.5-10.1); Carbon Dioxide 26.5 meq/L (21.0-32.0); Potassium 4.3 meq/L (3.5-5.1)
[2018-07-18] MEDS: Senna/Docusate Sodium 8.6/50 MG Tablet PO SCH (07:59)
[2018-07-18] MEDS: MethylPREDNISolone Sod Succinate Inj 125 MG/2 ML Vial IV.PUSH SCH (07:59)
[2018-07-18] MEDS: metOLazone 5 MG Tablet PO SCH (07:59)
[2018-07-18] MEDS: Nystatin 100,000 UNITS/GM Powder 15 GM Bottle TOPICAL SCH ×2 (08:00→12:05)
[2018-07-18] MEDS: Allopurinol 100 MG Tablet PO SCH (08:00)
[2018-07-18] MEDS: Atenolol 100 MG Tablet PO SCH (08:00)
[2018-07-18] MEDS: Benzonatate 100 MG Capsule PO PRN (08:04)
--- NOTE | 2018-07-18 08:10 | P.PNCA ---
Subjective Interval history: Patient reports he walked around the halls last night and although his breathing was not back to baseline, he feels much improved. He feels like lower extremity swelling is improving and he's able to wiggle his toes again. Good urine output with -700 fluid balance overnight. Of note leukocytosis is resolved on labs today. Medications and Allergies Allergies Allergy/AdvReac Type Severity Reaction Status Date / Time Svyaiew-Xaq-Xgy Reductase Allergy Severe muscle Verified 04/12/18 05:50 Inhibitor weakness atorvastatin Allergy Mild Verified 04/12/18 05:50 Home Medications Medication Instructions Recorded Confirmed Type amlodipine 10 mg PO DAILY 06/30/18 06/30/18 History aspirin 81 mg PO BID 06/30/18 07/02/18 History calcitriol 0.25 mcg PO DAILY 06/30/18 07/02/18 History cinnamon bark [Cinnamon] 1 cap PO BID 06/30/18 07/02/18 History coenzyme Q10 [CoQ-10] 100 mg PO DAILY 06/30/18 06/30/18 History diphenhydramine-acetaminophen 1 tab PO HS PRN 06/30/18 07/02/18 History [Tylenol PM Extra Strength] furosemide 40 mg PO BID 06/30/18 06/30/18 History glucosamine sulfate 1,000 mg PO BID 06/30/18 07/02/18 History insulin aspart U-100 [Novolog 5 unit SUB-Q AC BREAKFAST 06/30/18 06/30/18 History U-100 Insulin aspart] insulin aspart U-100 [Novolog 8 units SUB-Q AC DINNER 06/30/18 07/02/18 History U-100 Insulin aspart] insulin aspart U-100 [Novolog 8 units SUB-Q AC LUNCH 06/30/18 07/02/18 History U-100 Insulin aspart] insulin glargine [Lantus U-100 28 units SUB-Q HS 06/30/18 07/02/18 History Insulin] metformin 500 mg PO DAILY 06/30/18 07/02/18 History metoprolol tartrate 50 mg PO BID 06/30/18 06/30/18 History multivitamin 1 tab PO DAILY 06/30/18 07/02/18 History omega 3-pgm-tzx-fish oil [Fish Oil] 1,200 mg PO BID 06/30/18 07/02/18 History spironolactone 25 mg PO DAILY 06/30/18 06/30/18 History Active Medications: Active Medications Acetaminophen (Tylenol) 650 mg PO Q6H PRN PRN Reason: TEMPERATURE > 100 F Last Admin: 07/01/18 22:08 Dose: 650 mg Acetaminophen (Tylenol) 650 mg PO Q4H PRN PRN Reason: PAIN SCALE 1 TO 2 Al Hydroxide/Mg Hydroxide (Milk Of Magnesia Liq) 30 ml PO Q12H PRN PRN Reason: Mild Constipation Last Admin: 07/11/18 21:36 Dose: 30 ml Albuterol (Albuterol Neb (Prn)) 2.5 mg NEB Q2HR NEB PRN PRN Reason: DYSPNEA Allopurinol (Zyloprim) 100 mg PO DAILY [facility] Last Admin: 07/18/18 08:00 Dose: 100 mg Aspirin (Ecotrin) 81 mg PO DAILY [facility] Last Admin: 07/18/18 08:00 Dose: 81 mg Atenolol (Tenormin) 100 mg PO DAILY [facility] Last Admin: 07/18/18 08:00 Dose: 100 mg Benzocaine/Menthol (Cepacol Max Strength) 1 lozenge BUCCAL Q2H PRN PRN Reason: SORE THROAT Last Admin: 07/04/18 08:43 Dose: 1 lozenge Benzonatate (Tessalon Perles) 100 mg PO Q8H PRN PRN Reason: COUGH Last Admin: 07/18/18 08:04 Dose: 100 mg Bisacodyl (Dulcolax Supp) 10 mg RECTAL DAILY PRN PRN Reason: SEVERE CONSITIPATION Last Admin: 07/09/18 20:49 Dose: 10 mg Cephalexin Monohydrate (Keflex) 500 mg PO Q6HR [facility] Last Admin: 07/18/18 06:20 Dose: 500 mg Clopidogrel Bisulfate (Plavix) 75 mg PO DAILY [facility] Last Admin: 07/18/18 07:59 Dose: 75 mg Dextrose (D50w Vial) 50 ml IV.PUSH UNSCH PRN PRN Reason: PER HYPOGLYCEMIA PROTOCOL Furosemide (Lasix Inj) 40 mg IV.PUSH BID@0900,1800 [facility] Last Admin: 07/18/18 08:03 Dose: 40 mg Glucagon (Glucagon Inj) 1 mg OTHER PRN PRN PRN Reason: for Hypoglycemia Protocol Insulin Aspart (Novolog Insulin Correctional Sugar Inj) 0 unit SQ ACHS AND 3AM GLENIS; Protocol Last Admin: 07/18/18 07:56 Dose: 3 unit Insulin Detemir (Levemir Inj) 15 unit SQ DAILY [facility] Last Admin: 07/18/18 08:00 Dose: 15 unit Insulin Detemir (Levemir Inj) 10 unit SQ HS [facility] Last Admin: 07/17/18 20:46 Dose: 10 unit Lactulose (Lactulose Liq) 30 ml PO DAILY PRN PRN Reason: SEVERE CONSITIPATION Magnesium Oxide (Mag-Ox) 800 mg PO UNSCH PRN PRN Reason: For Magnesium 1.2 - 1.6 mg/dL Methylprednisolone Sodium Succinate (Solumedrol Inj) 60 mg IV.PUSH DAILY [facility] Last Admin: 07/18/18 07:59 Dose: 60 mg Metolazone (Zaroxolyn) 5 mg PO DAILY [facility] Last Admin: 07/18/18 07:59 Dose: 5 mg Morphine Sulfate (Morphine Inj) 2 mg IV.PUSH Q2H PRN PRN Reason: PAIN SCALE 6 TO 10 Last Admin: 07/07/18 20:25 Dose: 2 mg Multivitamins (Theragran) 1 tab PO DAILY [facility] Last Admin: 07/18/18 08:00 Dose: 1 tab Nystatin (Mycostatin Powder) 1 applicatio TOPICAL QID [facility] Last Admin: 07/18/18 08:00 Dose: 1 applicatio Ondansetron HCl (Zofran Inj) 4 mg IV.PUSH Q6H PRN PRN Reason: NAUSEA OR VOMITING Oxycodone HCl (Roxicodone) 5 mg PO Q4H PRN PRN Reason: Pain 1-5 Last Admin: 07/07/18 23:26 Dose: 5 mg Pantoprazole Sodium (Protonix) 40 mg PO DAILY [facility] Last Admin: 07/18/18 08:00 Dose: 40 mg Potassium Chloride (K-Dur) 20 meq PO DAILY [facility] Last Admin: 07/18/18 08:00 Dose: 20 meq Senna/Docusate Sodium (Amelia-Colace) 1 tab PO BID [facility] Last Admin: 07/18/18 07:59 Dose: 1 tab Sennosides (Senokot) 17.2 mg PO Q12H PRN PRN Reason: Moderate Constipation Last Admin: 07/09/18 14:32 Dose: 17.2 mg Sodium Chloride (Ns Flush) 2 ml IV.FLUSH BID [facility] Last Admin: 07/18/18 07:59 Dose: 2 ml Sodium Chloride (Ns Flush) 2 ml IV.FLUSH PRN PRN PRN Reason: FLUSH AFTER USING IV ACCESS Zolpidem Tartrate (Ambien) 10 mg PO HS PRN PRN Reason: SLEEP Last Admin: 07/17/18 23:06 Dose: 10 mg Physical Exam Vital signs: Vital Signs 07/17/18 09:00 07/17/18 10:00 07/17/18 11:00 Temperature 98.6 F Pulse Rate 65 61 61 Respiratory Rate 16 Blood Pressure 134/65 Pulse Oximetry 99 07/17/18 12:00 07/17/18 13:00 07/17/18 14:00 Temperature Pulse Rate 66 61 59 L Respiratory Rate Blood Pressure Pulse Oximetry 07/17/18 15:00 07/17/18 16:00 07/17/18 17:00 Temperature 98.3 F Pulse Rate 62 60 63 Respiratory Rate 16 Blood Pressure 125/63 Pulse Oximetry 99 07/17/18 18:00 07/17/18 19:00 07/17/18 20:00 Temperature 98.5 F Pulse Rate 67 85 68 Respiratory Rate 16 Blood Pressure 127/61 Pulse Oximetry 98 07/17/18 21:00 07/17/18 22:00 07/17/18 23:00 Temperature 97.5 F L Pulse Rate 69 70 68 Respiratory Rate 16 Blood Pressure 158/72 H Pulse Oximetry 97 07/18/18 00:00 07/18/18 01:00 07/18/18 02:00 Temperature Pulse Rate 62 59 L 62 Respiratory Rate Blood Pressure Pulse Oximetry 07/18/18 03:00 07/18/18 04:00 07/18/18 05:00 Temperature 98 F Pulse Rate 68 62 62 Respiratory Rate 16 Blood Pressure 108/55 L Pulse Oximetry 97 07/18/18 05:59 Temperature Pulse Rate 59 L Respiratory Rate Blood Pressure Pulse Oximetry Intake & Output 07/17/18 07/18/18 07/18/18 18:59 06:59 18:59 Intake Total 750 / 750 480 / 480 Output Total 850 / 850 1150 / 1150 Balance -100 / -100 -670 / -670 Weight 177 lb 11.081 oz Intake: Oral 750 / 750 480 / 480 Output: Urine 850 / 850 1150 / 1150 Other: Date of Last Bowel Movement 07/17/18 Narrative: GENERAL: This is a well-nourished, well-developed patient, in no apparent distress. CARDIOVASCULAR: Regular rate and rhythm without murmurs, gallops, or rubs. PPM site clean with steristrips and no erythema. RESPIRATORY: Clear to auscultation. Breath sounds equal bilaterally. No wheezes , rales, or rhonchi. GASTROINTESTINAL: Abdomen soft, non-tender, nondistended. Normal active bowel sounds MUSCULOSKELETAL: 2+ edema bilateral LE NEURO: Alert & Oriented x4 to person, place, time, situation. Moves all ext x4 Results 07/18/18 03:25 07/18/18 03:25 CBC 07/17/18 07/18/18 Range/Units 05:09 03:25 WBC 16.0 H 9.5 (4.0-11.0) th/mm3 RBC 3.05 L 2.90 L (4.50-5.90) mil/mm3 Hgb 9.0 L 8.7 L (13.0-17.0) gm/dL Hct 27.3 L 26.2 L (39.0-51.0) % Plt Count 280 264 (150-450) th/mm3 Neut # (Auto) 8.9 H 5.9 (1.8-7.7) th/mm3 Lymph # (Auto) 4.4 3.0 (1.0-4.8) th/mm3 [place] # (Auto) 1.9 H 0.6 (0.0-0.9) th/mm3 Eos # (Auto) 0.6 H 0.0 (0.0-0.4) th/mm3 Baso # (Auto) 0.2 0.0 (0.0-0.2) th/mm3 Comprehensive Metabolic Panel 07/17/18 07/18/18 Range/Units 05:09 03:25 Sodium 138 138 (136-145) meq/L Potassium 4.0 4.3 (3.5-5.1) meq/L Chloride 101 103 (98-107) meq/L Carbon Dioxide 25.7 26.5 (21.0-32.0) meq/L BUN 107 H 110 H (7-18) mg/dL Creatinine 2.14 H 2.19 H (0.60-1.30) mg/dL Calcium 8.6 8.7 (8.5-10.1) mg/dL Albumin 2.5 L (3.4-5.0) g/dL Intake and Output 07/17/18 07/18/18 07/18/18 22:59 06:59 14:59 Intake Total 750 / 750 480 / 480 Output Total 850 / 850 1150 / 1150 Balance -100 / -100 -670 / -670 Intake: Oral 750 / 750 480 / 480 Output: Urine 850 / 850 1150 / 1150 Other: Date of Last Bowel Movement 07/17/18 07/17/18 Weight 177 lb 11.081 oz - Imaging and Cardiology Imaging: Impressions Ankle X-Ray 07/16/18 00:00 CONCLUSION: Diffuse soft tissue swelling. No fracture seen. Assessment and Plan - Plan Assessment: Patient admitted as transfer from [facility] with CHB and junctional escape rhythm, hemodynamically stable in the setting of ADHF, fever, leukocytosis, and CKD stage 3. There was concern for possible bacterial endocarditis in this setting, however transthoracic echocardiogram and transesophageal echocardiogram did not reveal any valvular vegetations. LV systolic function is normal. Still with persistent LE edema and worsening renal function. -CKD stage 3, with SO, stable cR with worsening BUN 52-->107 on current diuretic therapy -CHB, with junctional escape rhythm, no s/p Med[employer] dual chamber PPM 07/07/18 -HFpEF -symptomatically improving with aggressive diuresis and thoracentesis . -Anasarca with lower extremity edema and hypoalbuminemia -Chronic Leukocytosis, cultures negative to date, was cleared by ID for pacemaker, hematology consult appreciated. Improved -CAD, asymptomatic -Moderate aortic bioprosthesis stenosis on echo, normal EF -HTN - better controlled -NSTEMI 07/12 s/p PCI to LAD lesion 07/13 Recommendations: -Nephrology following for SO on CKD, with BUN elevating 52-->107 with little improvement in LE edema since admission. Question when is appropriate timing for discussion between patient and nephrology for possible ultrafiltration. -s/p PPM 07/07/18 - no lifting with left arm -Continue home ASA 81mg daily, and Plavix 75mg daily (DAPT) uninterrupted for minimum of 1 year. -Continue atenolol 100mg daily -Continue diuresis, on Lasix and metolazone Discussed Condition With: Patient, RN, Dr. Elmore - Attending Attestation continue diuresis DC planning home health
[2018-07-18] MEDS ORDERED: Insulin Detemir Inj 1,000 UNIT/10 ML Vial SQ SCH (09:00)
--- NOTE | 2018-07-18 09:10 | P.PNIM ---
Subjective Interval history: pt says he can walk on his painful left ankle now. thinks swelling better Physical Exam Vital signs: Vital Signs 07/17/18 10:00 07/17/18 11:00 07/17/18 12:00 Temperature 98.6 F Pulse Rate 61 61 66 Respiratory Rate 16 Blood Pressure 134/65 Pulse Oximetry 99 07/17/18 13:00 07/17/18 14:00 07/17/18 15:00 Temperature 98.3 F Pulse Rate 61 59 L 62 Respiratory Rate 16 Blood Pressure 125/63 Pulse Oximetry 99 07/17/18 16:00 07/17/18 17:00 07/17/18 18:00 Temperature Pulse Rate 60 63 67 Respiratory Rate Blood Pressure Pulse Oximetry 07/17/18 19:00 07/17/18 20:00 07/17/18 21:00 Temperature 98.5 F Pulse Rate 85 68 69 Respiratory Rate 16 Blood Pressure 127/61 Pulse Oximetry 98 07/17/18 22:00 07/17/18 23:00 07/18/18 00:00 Temperature 97.5 F L Pulse Rate 70 68 62 Respiratory Rate 16 Blood Pressure 158/72 H Pulse Oximetry 97 07/18/18 01:00 07/18/18 02:00 07/18/18 03:00 Temperature 98 F Pulse Rate 59 L 62 68 Respiratory Rate 16 Blood Pressure 108/55 L Pulse Oximetry 97 07/18/18 04:00 07/18/18 05:00 07/18/18 05:59 Temperature Pulse Rate 62 62 59 L Respiratory Rate Blood Pressure Pulse Oximetry Intake & Output 07/17/18 07/18/18 07/18/18 18:59 06:59 18:59 Intake Total 750 / 750 480 / 480 Output Total 850 / 850 1150 / 1150 Balance -100 / -100 -670 / -670 Weight 80.6 kg Intake: Oral 750 / 750 480 / 480 Output: Urine 850 / 850 1150 / 1150 Other: Date of Last Bowel Movement 07/17/18 heart reg lung cta abd s/nt ext 2 plus edema lower ext. Results - Labs CBC & Chem 7: 07/18/18 03:25 07/18/18 03:25 Laboratory Results - last 24 hr 07/17/18 07/17/18 07/17/18 10:58 15:20 19:54 WBC RBC Hgb Hct MCV MCH MCHC RDW Plt Count MPV Neut % (Auto) Lymph % (Auto) Bibb % (Auto) Eos % (Auto) Baso % (Auto) Neut # (Auto) Lymph # (Auto) Bibb # (Auto) Eos # (Auto) Baso # (Auto) WBC Differential Differential Comment Sodium Potassium Chloride Carbon Dioxide Anion Gap BUN Creatinine Estimated GFR POC Glucose 209 H 164 H 358 H Random Glucose Calcium 07/18/18 07/18/18 07/18/18 03:18 03:25 03:25 WBC 9.5 RBC 2.90 L Hgb 8.7 L Hct 26.2 L MCV 90.3 MCH 30.1 MCHC 33.3 RDW 15.5 Plt Count 264 MPV 10.8 Neut % (Auto) 62.0 Lymph % (Auto) 30.9 Bibb % (Auto) 6.8 Eos % (Auto) 0.0 Baso % (Auto) 0.3 Neut # (Auto) 5.9 Lymph # (Auto) 3.0 Bibb # (Auto) 0.6 Eos # (Auto) 0.0 Baso # (Auto) 0.0 WBC Differential . Differential Comment Auto diff final Sodium 138 Potassium 4.3 Chloride 103 Carbon Dioxide 26.5 Anion Gap 9 BUN 110 H Creatinine 2.19 H Estimated GFR 30 L POC Glucose 354 H Random Glucose 328 H D Calcium 8.7 07/18/18 07:52 WBC RBC Hgb Hct MCV MCH MCHC RDW Plt Count MPV Neut % (Auto) Lymph % (Auto) Bibb % (Auto) Eos % (Auto) Baso % (Auto) Neut # (Auto) Lymph # (Auto) Bibb # (Auto) Eos # (Auto) Baso # (Auto) WBC Differential Differential Comment Sodium Potassium Chloride Carbon Dioxide Anion Gap BUN Creatinine Estimated GFR POC Glucose 230 H Random Glucose Calcium Assessment and Plan - Assessment (1) CHB (complete heart block) Code(s): I44.2 - Status: Acute Plan: 1. CHB. junctional escape. ppm placed 07/07 2. CHF. preserved LVF. decompensated pleural effusion. mod right. small left. 3. SO 4. FEVER/Leukocytosis. pulmonary infiltrates. 5. Diabetes 6. HTN 7. chest pressure 8. hypokalemia 9. Palmar tendinitis/cellulitis - Pt had thoracentesis 07/11 with removal of 800ml fluid - CXR 07/12 reviewed and reveals: Mild basilar airspace disease with small effusions. Primary differential diagnosis is mild congestive heart failure. Pacer leads overlie right atrium and right ventricle. - cont abx azithro per ID possible pna. rocephin stopped 07/08 - cont current bp medication - levemir to 15 units AM and 10 units PM. steroid hyperglycemia. - novolog SSI - PT daily. - 07/12 Initial troponin result 5.11, discussed with Dr. Santillan request heparin drip, continue to trend serial troponin and NPO after midnight - serial troponin 5.11, 4.24 and 3.42 - Patient S/P cardiac catheterization 07/[address] Elmore 1. Severe single-vessel coronary artery disease involving the proximal left anterior descending coronary artery 2. Successful percutaneous coronary intervention with drug-eluting stent to the proximal left anterior descending coronary artery - had episode of SOB, 07/14 - obtain CXR 07/15/18 Small bilateral pleural effusions. No other acute abnormality is identified. - Continue lasix 40mg IV BID with KCL - metolazone 5mg daily - Keflex started by ID recommending (07/16) 7- 10 days for palm cellulitis. - 07/16 pt with left ankle pain and treated for probably gout with iv solumedrol. will stop now as sx's resolved - elevated uric acid 10.1 - left ankle x ray reviewed and reveals: Diffuse soft tissue swelling. No fracture seen discussed with cardiology. they feel pt stable for dc from cardiac standpt will discuss diuretics/fluid status/disposition with renal. (2) CHF (congestive heart failure) Code(s): I50.9 - Status: Acute (3) Fever Code(s): R50.9 - Status: Acute (4) Acute kidney injury Code(s): N17.9 - Status: Acute
[2018-07-18 09:45] VITALS: O2SAT 99
--- NOTE | 2018-07-18 10:53 | P.PNNP ---
Subjective Interval history: Sitting up in chair with family at bedside. Denies any shortness of breath, chest pain, nausea, or vomiting. Edema improving. <Zuleika Vasquez - Last Filed: 07/18/18 10:43> Physical Exam Vital signs: Vital Signs 07/17/18 11:00 07/17/18 12:00 07/17/18 13:00 Temperature 98.6 F Pulse Rate 61 66 61 Respiratory Rate 16 Blood Pressure 134/65 Pulse Oximetry 99 07/17/18 14:00 07/17/18 15:00 07/17/18 16:00 Temperature 98.3 F Pulse Rate 59 L 62 60 Respiratory Rate 16 Blood Pressure 125/63 Pulse Oximetry 99 07/17/18 17:00 07/17/18 18:00 07/17/18 19:00 Temperature 98.5 F Pulse Rate 63 67 85 Respiratory Rate 16 Blood Pressure 127/61 Pulse Oximetry 98 07/17/18 20:00 07/17/18 21:00 07/17/18 22:00 Temperature Pulse Rate 68 69 70 Respiratory Rate Blood Pressure Pulse Oximetry 07/17/18 23:00 07/18/18 00:00 07/18/18 01:00 Temperature 97.5 F L Pulse Rate 68 62 59 L Respiratory Rate 16 Blood Pressure 158/72 H Pulse Oximetry 97 07/18/18 02:00 07/18/18 03:00 07/18/18 04:00 Temperature 98 F Pulse Rate 62 68 62 Respiratory Rate 16 Blood Pressure 108/55 L Pulse Oximetry 97 07/18/18 05:00 07/18/18 05:59 07/18/18 07:00 Temperature Pulse Rate 62 59 L 60 Respiratory Rate Blood Pressure Pulse Oximetry 07/18/18 08:00 07/18/18 09:00 07/18/18 09:22 Temperature 97.5 F L Pulse Rate 60 60 60 Respiratory Rate 16 Blood Pressure 134/69 Pulse Oximetry 99 Intake & Output 07/17/18 07/18/18 07/18/18 18:59 06:59 18:59 Intake Total 750 / 750 480 / 480 Output Total 850 / 850 1150 / 1150 Balance -100 / -100 -670 / -670 Weight 80.6 kg Intake: Oral 750 / 750 480 / 480 Output: Urine 850 / 850 1150 / 1150 Other: Date of Last Bowel Movement 07/17/18 07/17/18 Narrative: GENERAL: This is a well-nourished, well-developed patient, in no apparent distress. CARDIOVASCULAR: Regular rate and rhythm without murmurs, gallops, or rubs. PPM site clean with steristrips and no erythema. RESPIRATORY: Clear to auscultation. Breath sounds equal bilaterally. No wheezes , rales, or rhonchi. GASTROINTESTINAL: Abdomen soft, non-tender, nondistended. Normal active bowel sounds MUSCULOSKELETAL: 2+ edema bilateral LE. HEIN NEURO: Alert & Oriented x4 to person, place, time, situation. Moves all ext x4 <Zuleika Vasquez - Last Filed: 07/18/18 10:43> Assessment and Plan - Assessment (1) Acute kidney injury Code(s): N17.9 - Status: Acute Plan: Acute kidney injury with creatinine of 2.60 on day of consult. SO possibly ATN from decreased cardiac output/ third spacing/ infection History of chronic kidney disease with mild proteinuria possibly from diabetic or hypertensive renal disease. Baseline creatinine not available but creatinine noted to be 1.20 April 2011 Renal ultrasound with no evidence of stone, masses or hydronephrosis Creatinine stable at 2.19 24 hour urine with 1.6 gm of protein. Plan Monitor strict I+O Avoid nephrotoxins as possible Continue Lasix and metolazone, Lasix changed to oral Follow the BMP and the urine out put. Fluid restriction discussed. From Nephrology stand point patient is cleared for discharge. Recommend to continue above diuretics. Will need to have follow up with Nephrology outpatient for ongoing monitoring. (2) Anemia Code(s): D64.9 - Status: Acute Plan: Hemoglobin stable 8.7 Most likely from chronic disease (3) Complete heart block by electrocardiogram Code(s): I44.2 - Status: Acute Plan: Pacemaker placement on 07/07 <Zuleika Vasquez - Last Filed: 07/18/18 10:43> - Assessment (1) Acute kidney injury Code(s): N17.9 - Acute kidney failure, unspecified Status: Acute Plan: Patient seen and examined, agree with above. Has only 1.6 gm of proteinuria. Creatinine stable, continue the diuretics. (2) Anemia Code(s): D64.9 - Anemia, unspecified Status: Acute (3) Complete heart block by electrocardiogram Code(s): I44.2 - Atrioventricular block, complete Status: Acute (4) Sepsis Code(s): A41.9 - Sepsis, unspecified organism Status: Acute <Larry Acevedo - Last Filed: 07/21/18 10:25>
[2018-07-18 12:02] VITALS: BP 153/75; TEMP 97.6
--- NOTE | 2018-07-18 12:56 | P.DCO ---
- Physical Therapy Order: Evaluate and treat - Home Health Nursing Order: Medical education, Signs/symptoms of disease process, Medication education-adverse effect, Nursing assessment with vital signs Instructions: check bmp on 07/21. send results to DR Morgan(pcp), Dr Acevedo (renal), and Dr Varun Santillan/Sujit Elmore cp cardiology. - Case Management Consult Yes - Certification I have seen patient Klaus Lees on 07/18/18. My clinical findings support the need for the requested home health care services because: Patient has SOB I certify that my clinical findings support that this patient is homebound because: Post-op weakness
[2018-07-18 14:13] VITALS: PULSE 60
[2018-07-18] MEDS ORDERED: Furosemide 40 MG Tablet PO SCH (18:00)
--- NOTE | 2018-07-24 14:35 | P.DS ---
Date of admission: 06/29/18 23:05 Primary care physician: Hussein Morgan MD, PhD Brief History from admission: Pt brought from [facility] with acute renal failure, volume overload and complete heartblock. DS: Diagnosis - Discharge Diagnosis (1) CHB (complete heart block) Status: Acute (2) CHF (congestive heart failure) Status: Acute (3) Fever Status: Acute (4) Acute kidney injury Status: Acute DS: Medications - Discharge Medications Prescriptions: atenolol 100 mg PO DAILY 30 Days #30 tab cephalexin 500 mg PO Q6HR 7 Days cap clopidogrel [Plavix] 75 mg PO DAILY 30 Days #30 tab pantoprazole 40 mg PO DAILY 30 Days #30 tab DS: Summary Hospital Course: Assessment and Plan - Assessment (1) CHB (complete heart block) Code(s): I44.2 - Status: Acute Plan: 1. CHB. junctional escape. ppm placed 07/07 2. CHF. preserved LVF. decompensated pleural effusion. mod right. small left. 3. SO 4. FEVER/Leukocytosis. pulmonary infiltrates. 5. Diabetes 6. HTN 7. chest pressure 8. hypokalemia 9. Palmar tendinitis/cellulitis - Pt had thoracentesis 07/11 with removal of 800ml fluid - CXR 07/12 reviewed and reveals: Mild basilar airspace disease with small effusions. Primary differential diagnosis is mild congestive heart failure. Pacer leads overlie right atrium and right ventricle. - cont abx azithro per ID possible pna. rocephin stopped 07/08 - cont current bp medication - levemir to 15 units AM and 10 units PM. steroid hyperglycemia. - novolog SSI - PT daily. - 07/12 Initial troponin result 5.11, discussed with Dr. Santillan request heparin drip, continue to trend serial troponin and NPO after midnight - serial troponin 5.11, 4.24 and 3.42 - Patient S/P cardiac catheterization 07/[address] Elmore 1. Severe single-vessel coronary artery disease involving the proximal left anterior descending coronary artery 2. Successful percutaneous coronary intervention with drug-eluting stent to the proximal left anterior descending coronary artery - had episode of SOB, 07/14 - obtain CXR 07/15/18 Small bilateral pleural effusions. No other acute abnormality is identified. - Continue lasix 40mg IV BID with KCL - metolazone 5mg daily - Keflex started by ID recommending (07/16) 7- 10 days for palm cellulitis. - 07/16 pt with left ankle pain and treated for probably gout with iv solumedrol. will stop now as sx's resolved - elevated uric acid 10.1 - left ankle x ray reviewed and reveals: Diffuse soft tissue swelling. No fracture seen discussed with cardiology. they feel pt stable for dc from cardiac standpt will discuss diuretics/fluid status/disposition with renal. Renal now ok with dc on current medications. (2) CHF (congestive heart failure) Code(s): I50.9 - Status: Acute (3) Fever Code(s): R50.9 - Status: Acute (4) Acute kidney injury Code(s): N17.9 - Status: Acute Documented By: Tiago Arias MD 07/18/18 0907 Signed By: <Electronically signed by Tiago Arias MD> 07/21/18 1406 - Time Spent with Patient Total time spent providing and/or coordinating discharge services: Greater than 30 minutes - Quality: VTE Deep Vein Thrombosis/Pulmonary Embolism Present on Admission: No Results Procedures completed during hospitalization: [facility] with stent thoracentesis CT chest - Impressions ITS Impressions Abdomen/Bladder Ultrasound 06/30/18 00:00 CONCLUSION: No evidence of hydronephrosis. Venous Doppler Study 06/30/18 00:00 CONCLUSION: 1. The study is negative for bilateral lower extremity deep venous thrombosis. Chest CT 07/09/18 00:45 CONCLUSION: Interstitial edema with moderate pleural effusion on the right and small on the left. Thoracentesis Ultrasound 07/11/18 06:00 CONCLUSION: 1. Uncomplicated right thoracentesis. Chest X-Ray 07/15/18 06:00 CONCLUSION: Small bilateral pleural effusions. No other acute abnormality is identified. Ankle X-Ray 07/16/18 00:00 CONCLUSION: Diffuse soft tissue swelling. No fracture seen. Discharge Plan - Discharge Disposition Patient Disposition: Disch W/Home Health Service - Discharge Condition Condition: Stable - Discharge Order Discharge Orders: Discharge Order (Routine); Ordered 07/18/18 Ordered By: Tiago Arias - Discharge Details Anticipated Discharge Date: 07/18/18 - Physicians Team Primary Care Provider: Hussein Morgan Attending Provider: Vince Whitaker Other Providers: Varun Santillan DO ; Valentin Rodriguez MD ; Larry Acevedo MD ; Vince Whitaker DO ; Tiago Arias MD ; Santo Berg MD ; [facility], ; [facility] - Rxs /Orders / Referrals /Forms Prescriptions: New aspirin 81 mg Tablet,Delayed Release (Dr/Ec) 81 mg PO DAILY RF: 0 atenolol 100 mg Tablet 100 mg PO DAILY 30 Days Qty: 30 RF: 0 cephalexin 500 mg Capsule 500 mg PO Q6HR 7 Days RF: 0 clopidogrel [Plavix] 75 mg Tablet 75 mg PO DAILY 30 Days Qty: 30 RF: 0 pantoprazole 40 mg Tablet,Delayed Release (Dr/Ec) 40 mg PO DAILY 30 Days Qty: 30 RF: 0 Continue calcitriol 0.25 mcg Capsule 0.25 mcg PO DAILY furosemide 40 mg Tablet 40 mg PO BID insulin aspart U-100 [Novolog U-100 Insulin aspart] 100 unit/mL Solution 5 unit SUB-Q AC BREAKFAST insulin aspart U-100 [Novolog U-100 Insulin aspart] 100 unit/mL Solution 8 units Sub-Q AC LUNCH insulin aspart U-100 [Novolog U-100 Insulin aspart] 100 unit/mL Solution 8 units Sub-Q AC DINNER insulin glargine [Lantus U-100 Insulin] 100 unit/mL Solution 28 units Sub-Q HS multivitamin Tablet 1 tab PO DAILY spironolactone 25 mg Tablet 25 mg PO DAILY Discontinued amlodipine 10 mg Tablet 10 mg PO DAILY aspirin 81 mg Tablet,Chewable 81 mg PO BID cinnamon bark [Cinnamon] 500 mg Capsule 1 cap PO BID coenzyme Q10 [CoQ-10] 100 mg Capsule 100 mg PO DAILY diphenhydramine-acetaminophen [Tylenol PM Extra Strength] 25-500 mg Tablet 1 tab PO HS PRN (Reason: Insomnia) glucosamine sulfate 1,000 mg Capsule 1,000 mg PO BID metformin 500 mg Tablet 500 mg PO DAILY metoprolol tartrate 50 mg Tablet 50 mg PO BID omega 2-gvd-gbv-fish oil [Fish Oil] 360-1,200 mg Capsule,Delayed Release(Dr/ Ec) 1,200 mg PO BID Ambulatory Orders / Order Sets / DME: Basic Metabolic Panel (Routine) Timeframe: 5 Days Location: Determined by Patient Ordered By: Shireen Salazar Referrals: Larry Acevedo MD [Physician] - See Instructions (1-2 weeks ) Varun Santillan DO [Physician] - See Instructions (follow up in 1-2 weeks) Hussein Morgan MD, PhD [Primary Care Provider] - See Instructions (follow up in 1 week) - Discharge Instructions Patient Printed Instructions: Cephalexin (By mouth), Atenolol (By mouth), Clopidogrel (By mouth), Pantoprazole (By mouth), Chronic Kidney Disease (DC), Cellulitis (DC), Chronic Kidney Disease Diet (DC), Heart Healthy Diet (DC), Gout (DC), Steristrips (ED), Heart Catheterization (DC), Coronary Intravascular Stent Placement (DC), Pacemaker (DC), Thoracentesis (DC) Additional Instructions: No lifting with left arm x6 weeks
== END 2018-07-18 14:22 | disposition home health service (06) ==
LOC: HCVI 23:05 → HCPC 07-06 10:03
PROVIDERS: ADMIT Hospitalist; ATTEND Hospitalist

== ENCOUNTER 2018-08-17 09:01 | Inpatient (IN) ==
[2018-08-17 10:19] LABS: Baso # (Auto) 0.2 th/mm3 (0.0-0.2); Baso % (Auto) 1.2 % (0.0-2.0); Eos # (Auto) 0.3 th/mm3 (0.0-0.4); Hematocrit 36.5 % (39.0-51.0); Hemoglobin 11.9 gm/dL (13.0-17.0); Lymph # (Auto) 3.3 th/mm3 (1.0-4.8); Lymph % (Auto) 26.5 % (9.0-44.0); Mean Corpuscular HGB Conc 32.5 % (32.0-36.0); Mean Corpuscular Hemoglobin 30.3 pg (27.0-34.0); Mean Corpuscular Volume 93.2 fL (80.0-100.0); Mean Platelet Volume 10.3 fL (7.0-11.0); Mono # (Auto) 1.6 th/mm3 (0.0-0.9); Mono % (Auto) 12.8 % (0.0-8.0); Neut # (Auto) 7.2 th/mm3 (1.8-7.7); Neut % (Auto) 57.5 % (16.0-70.0); Red Blood Count 3.92 mil/mm3 (4.50-5.90); Red Cell Distribution Width 15.4 % (11.6-17.2); White Blood Count 12.5 th/mm3 (4.0-11.0)
[2018-08-17 10:25] LABS: Activated Partial Thrombo Time 23.8 sec (24.3-30.1); Prothrombin Time 10.3 sec (9.8-11.6)
[2018-08-17 10:41] LABS: Alanine Aminotransferase 19 U/L (12-78); Albumin 3.1 g/dL (3.4-5.0); Anion Gap 8 meq/L (5-15); Aspartate Aminotransferase 18 U/L (15-37); Blood Urea Nitrogen 35 mg/dL (7-18); Calcium 9.1 mg/dL (8.5-10.1); Carbon Dioxide 24.1 meq/L (21.0-32.0); Chloride 108 meq/L (98-107); Glomerular Filtration Rate 59 mL/min (>89); Glucose,Random 180 mg/dL (74-106); Potassium 4.3 meq/L (3.5-5.1); Sodium 140 meq/L (136-145)
[2018-08-17 10:43] LABS: Alkaline Phosphatase 84 U/L (45-117); Total Protein 7.3 g/dL (6.4-8.2)
[2018-08-17 10:44] LABS: Platelet Count 6 th/mm3 (150-450)
[2018-08-17 10:55] LABS: Eosinophils 3 % (0-4); Howell-Jolly Bodies Present; Lymphocytes 27 % (9-44); Monocytes 8 % (0-8); Platelet Estimate Rare (Normal); Platelet Morphology Normal (Normal)
--- NOTE | 2018-08-17 12:21 | ED ---
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 States that he has been bleeding that started last night. He denies any bloody stool or hematuria. He denies chest pain, shortness of breath, fever, chills, nausea, vomiting, dysuria, or abdominal pain. He is status post splenectomy. He is on aspirin and Plavix which he took today. States that the last time that this happened he had to have a transfusion which was many years ago. He reportedly does not have a billet worker. Related Data Home Medications Medication Instructions Recorded Confirmed calcitriol 0.25 mcg PO DAILY 06/30/18 08/17/18 furosemide 40 mg PO DAILY PRN 06/30/18 08/17/18 insulin aspart U-100 [Novolog 5 unit SUB-Q AC BREAKFAST 06/30/18 08/17/18 U-100 Insulin aspart] insulin aspart U-100 [Novolog 8 units SUB-Q AC DINNER 06/30/18 08/17/18 U-100 Insulin aspart] insulin aspart U-100 [Novolog 8 units SUB-Q AC LUNCH 06/30/18 08/17/18 U-100 Insulin aspart] insulin glargine [Lantus U-100 23 units SUB-Q HS 06/30/18 08/17/18 Insulin] multivitamin 1 tab PO DAILY 06/30/18 08/17/18 spironolactone 25 mg PO DAILY 06/30/18 08/17/18 atenolol 100 mg PO DAILY 08/17/18 08/17/18 clopidogrel 75 mg PO DAILY 08/17/18 08/17/18 doxylamine succinate 25 mg PO DAILY 08/17/18 08/17/18 iron, carbonyl [Feosol] 65 mg PO DAILY 08/17/18 08/17/18 melatonin 5 mg PO HS 08/17/18 08/17/18 Previous Rx's Medication Instructions Recorded aspirin 81 mg PO DAILY tab 07/14/18 Allergies Allergy/AdvReac Type Severity Reaction Status Date / Time [id number] Reductase Allergy Severe muscle Verified 08/17/18 12:00 Inhibitor weakness atorvastatin Allergy Mild Muscle Pain Verified 08/17/18 12:00 Review of Systems ROS: all other systems reviewed are negative [facility] Social History Social History Substance History: No History of Abuse Second Hand Smoke Exposure: No Smoking Status: Never smoker How Often Do You Have a Drink Containing Alcohol: Monthly or less Recent Travel in [facility] within the Last 8 Weeks: No Recent Out of Country Travel within the Last 8 Weeks: No Immunization History Tetanus Immunization: <5 Years Exam Narrative Exam Narrative: GENERAL: No acute distress. SKIN: Focused skin assessment warm/dry. Petechial rash bilateral lower extremities. HEAD: Atraumatic. Normocephalic. EYES: Pupils equal and round. No scleral icterus. No injection or drainage. ENT: No nasal bleeding or discharge. Mucous membranes pink and moist with purpura, blood clot noted. NECK: Trachea midline. No JVD. CARDIOVASCULAR: Regular rate and rhythm. No murmur appreciated. RESPIRATORY: No accessory muscle use. Clear to auscultation. Breath sounds equal bilaterally. GASTROINTESTINAL: Abdomen soft, non-tender, nondistended. MUSCULOSKELETAL: No obvious deformities. No clubbing. No cyanosis. No edema. NEUROLOGICAL: Awake and alert. No obvious cranial nerve deficits. Motor grossly within normal limits. Normal speech. PSYCHIATRIC: Appropriate mood and affect; insight and judgment normal. Course Initial Documented Vital Signs Temperature 98.4 F 08/17/18 09:03 Pulse Rate 85 08/17/18 09:03 Respiratory Rate 16 08/17/18 09:03 Blood Pressure 170/84 H 08/17/18 09:03 Pulse Oximetry 98 08/17/18 09:03 Last Documented Vital Signs Temperature 98.5 F 08/17/18 11:59 Pulse Rate 61 08/17/18 14:35 Respiratory Rate 14 08/17/18 14:35 Blood Pressure 142/71 H 08/17/18 14:35 Pulse Oximetry 97 08/17/18 14:35 Medical Decision Making [facility] Narrative Medical decision making narrative: Patient presents to the emergency department with a history of ITP and bleeding peer patient placed on quality assurance monitor body, continuous pulse ox, and IV access obtained. Labs ordered. Patient's platelets were 6. He was consented for transfusion and transfuse 1 unit of platelets. He has been admitted to the hospitalist. Medical Screen Exam Complete: Yes Emergency Medical Condition: Yes Lab Data Result diagrams: 08/17/18 13:55 08/17/18 09:30 Lab Results 08/17/18 08/17/18 08/17/18 Range/Units 09:30 09:30 09:30 WBC 12.5 H (4.0-11.0) th/mm3 RBC 3.92 L (4.50-5.90) mil/mm3 Hgb 11.9 L (13.0-17.0) gm/dL Hct 36.5 L (39.0-51.0) % MCV 93.2 (80.0-100.0) fL MCH 30.3 (27.0-34.0) pg MCHC 32.5 (32.0-36.0) % RDW 15.4 (11.6-17.2) % Plt Count 6 L* D (150-450) th/mm3 MPV 10.3 (7.0-11.0) fL Prelim Diff (Auto) Slide review pending Neut % (Auto) 57.5 (16.0-70.0) % Lymph % (Auto) 26.5 (9.0-44.0) % [place] % (Auto) 12.8 H (0.0-8.0) % Eos % (Auto) 2.0 (0.0-4.0) % Baso % (Auto) 1.2 (0.0-2.0) % Neut # (Auto) 7.2 (1.8-7.7) th/mm3 Lymph # (Auto) 3.3 (1.0-4.8) th/mm3 [place] # (Auto) 1.6 H (0.0-0.9) th/mm3 Eos # (Auto) 0.3 (0.0-0.4) th/mm3 Baso # (Auto) 0.2 (0.0-0.2) th/mm3 WBC Differential Manual diff final Seg Neuts % (Manual) 57 (16-70) % Band Neuts % (Manual) 5 (0-6) % Lymphocytes % (Manual) 27 (9-44) % Monocytes % (Manual) 8 (0-8) % Eosinophils % (Manual) 3 (0-4) % Abs Neuts (Manual) 7.8 H (1.8-7.7) th/mm3 Differential Comment . Platelet Estimate Rare L (Normal) Platelet Morphology Normal (Normal) [place] Bodies Present H (None) Smear Path Review PT (9.8-11.6) sec INR Ratio APTT (24.3-30.1) sec Sodium 140 (136-145) meq/L Potassium 4.3 (3.5-5.1) meq/L Chloride 108 H (98-107) meq/L Carbon Dioxide 24.1 (21.0-32.0) meq/L Anion Gap 8 (5-15) meq/L BUN 35 H (7-18) mg/dL Creatinine 1.22 (0.60-1.30) mg/dL Estimated GFR 59 L (>89) mL/min Random Glucose 180 H (74-106) mg/dL Calcium 9.1 (8.5-10.1) mg/dL Magnesium 2.0 (1.5-2.5) mg/dL Total Bilirubin 0.4 (0.2-1.0) mg/dL AST 18 (15-37) U/L ALT 19 (12-78) U/L Alkaline Phosphatase 84 (45-117) U/L Total Protein 7.3 (6.4-8.2) g/dL Albumin 3.1 L (3.4-5.0) g/dL Blood Type A Positive Antibody Screen Positive H Antibody Identification MTS Gel Crossmatch See Detail Bld Prod Order Comment 08/17/18 08/17/18 08/17/18 Range/Units 09:30 10:53 11:39 WBC (4.0-11.0) th/mm3 RBC (4.50-5.90) mil/mm3 Hgb (13.0-17.0) gm/dL Hct (39.0-51.0) % MCV (80.0-100.0) fL MCH (27.0-34.0) pg MCHC (32.0-36.0) % RDW (11.6-17.2) % Plt Count (150-450) th/mm3 MPV (7.0-11.0) fL Prelim Diff (Auto) Neut % (Auto) (16.0-70.0) % Lymph % (Auto) (9.0-44.0) % [place] % (Auto) (0.0-8.0) % Eos % (Auto) (0.0-4.0) % Baso % (Auto) (0.0-2.0) % Neut # (Auto) (1.8-7.7) th/mm3 Lymph # (Auto) (1.0-4.8) th/mm3 [place] # (Auto) (0.0-0.9) th/mm3 Eos # (Auto) (0.0-0.4) th/mm3 Baso # (Auto) (0.0-0.2) th/mm3 WBC Differential Seg Neuts % (Manual) (16-70) % Band Neuts % (Manual) (0-6) % Lymphocytes % (Manual) (9-44) % Monocytes % (Manual) (0-8) % Eosinophils % (Manual) (0-4) % Abs Neuts (Manual) (1.8-7.7) th/mm3 Differential Comment Platelet Estimate (Normal) Platelet Morphology (Normal) [place] Bodies (None) Smear Path Review PT 10.3 (9.8-11.6) sec INR 1.0 Ratio APTT 23.8 L (24.3-30.1) sec Sodium (136-145) meq/L Potassium (3.5-5.1) meq/L Chloride (98-107) meq/L Carbon Dioxide (21.0-32.0) meq/L Anion Gap (5-15) meq/L BUN (7-18) mg/dL Creatinine (0.60-1.30) mg/dL Estimated GFR (>89) mL/min Random Glucose (74-106) mg/dL Calcium (8.5-10.1) mg/dL Magnesium (1.5-2.5) mg/dL Total Bilirubin (0.2-1.0) mg/dL AST (15-37) U/L ALT (12-78) U/L Alkaline Phosphatase (45-117) U/L Total Protein (6.4-8.2) g/dL Albumin (3.4-5.0) g/dL Blood Type Antibody Screen Antibody Identification Non-Specific Agglutinin MTS Gel Crossmatch Bld Prod Order Comment 08/17/18 08/17/18 Range/Units 13:55 14:22 WBC 10.3 (4.0-11.0) th/mm3 RBC 3.61 L (4.50-5.90) mil/mm3 Hgb 11.2 L (13.0-17.0) gm/dL Hct 34.0 L (39.0-51.0) % MCV 94.1 (80.0-100.0) fL MCH 31.1 (27.0-34.0) pg MCHC 33.1 (32.0-36.0) % RDW 16.0 (11.6-17.2) % Plt Count 24 L D (150-450) th/mm3 MPV 7.4 (7.0-11.0) fL Prelim Diff (Auto) Slide review pending Neut % (Auto) 53.5 (16.0-70.0) % Lymph % (Auto) 31.5 (9.0-44.0) % [place] % (Auto) 11.5 H (0.0-8.0) % Eos % (Auto) 2.1 (0.0-4.0) % Baso % (Auto) 1.4 (0.0-2.0) % Neut # (Auto) 5.5 (1.8-7.7) th/mm3 Lymph # (Auto) 3.2 (1.0-4.8) th/mm3 [place] # (Auto) 1.2 H (0.0-0.9) th/mm3 Eos # (Auto) 0.2 (0.0-0.4) th/mm3 Baso # (Auto) 0.1 (0.0-0.2) th/mm3 WBC Differential Seg Neuts % (Manual) (16-70) % Band Neuts % (Manual) (0-6) % Lymphocytes % (Manual) (9-44) % Monocytes % (Manual) (0-8) % Eosinophils % (Manual) (0-4) % Abs Neuts (Manual) (1.8-7.7) th/mm3 Differential Comment . Platelet Estimate (Normal) Platelet Morphology (Normal) [place] Bodies (None) Smear Path Review PT (9.8-11.6) sec INR Ratio APTT (24.3-30.1) sec Sodium (136-145) meq/L Potassium (3.5-5.1) meq/L Chloride (98-107) meq/L Carbon Dioxide (21.0-32.0) meq/L Anion Gap (5-15) meq/L BUN (7-18) mg/dL Creatinine (0.60-1.30) mg/dL Estimated GFR (>89) mL/min Random Glucose (74-106) mg/dL Calcium (8.5-10.1) mg/dL Magnesium (1.5-2.5) mg/dL Total Bilirubin (0.2-1.0) mg/dL AST (15-37) U/L ALT (12-78) U/L Alkaline Phosphatase (45-117) U/L Total Protein (6.4-8.2) g/dL Albumin (3.4-5.0) g/dL Blood Type Antibody Screen Antibody Identification MTS Gel Crossmatch Bld Prod Order Comment Discharge Plan Discharge Disposition Patient Disposition: 30 Still Patient Discharge Condition Condition: Stable Discharge Details Diagnosis: Thrombocytopenia Physicians Team ED Provider: Flor Farmer Primary Care Provider: Hussein Morgan Attending Provider: Tiago Arias Other Providers: Varun Santillan ; Mike Plascencia Status ED Status: Admitted Patient
--- NOTE | 2018-08-17 13:32 | P.HPIM ---
History of Present Illness Primary Care Physician: Hussein Morgan MD, PhD Chief Complaint: Mucosal bleeding History of Present Illness: Mr. Lees is a pleasant 72 y/o WM with prior aortic valve pathology s/p AVR in 2010, hx of diastolic heart failure, CKD, stage III, HTN, CAD and DM. Pt recently had a prolonged hospitalization after he was transferred to [facility] [facility] from [facility] with complete heart block and junctional escape rhythm in the setting of ADHF, fever, leukocytosis, and CKD stage 3. There was concern for possible bacterial endocarditis initially in this setting, however transthoracic echocardiogram and transesophageal echocardiogram did not reveal any valvular vegetations. Pt had a Medtronic dual chamber PPM place on 07/07/18. Pt was given diuresis with Aldactone and Lasix and underwent a thoracentesis on 07/11 with removal of 800ml fluid. On pt was found to have elevated troponin of 5.11 which trended to 4.24 and 3.24. He underwent cardiac catheterization on 07/13/[address] Elmore s/p PCI with CALI to LAD lesion. Pt was seen by ID during that admission as well for leukocytosis. During admission he was treated for possible pneumonia with Rocephin and Azithromycin. Pt was treated with Keflex started by ID recommended 7- 10 days for palm cellulitis. Pt reports that following that hospitalization he was doing quite well. He had been seen in followup by his Car Varnisher, Dr. Elmore, and the Lasix was decreased to an as needed bases. He had started walking in the evening times for exercise. He denies any recent travel or any recent medication changes other than he started using OTC Unisom for insomnia two days ago. This morning he woke up and noted blood on his pillow. He states that he noted some large bloody blistering on his lips and buccal mucosa. This prompted him to come to the ED for further evaluation. He noted that he began having petechia on his calves and ecchymosis on his feet bilaterally. 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 His labs at admission noted platelet count of 6,000 which is a significant change from the labs on previous admissions. His coagulation panel was stable. He denies any chest pain, palpitations, GIB, hematuria or epistaxis. Past Medical Hx: Prior aortic valve pathology, s/p valve replacement CKD, stage III Chronic heart failure, unknown type CAD HLD DM Hx of ITP 2D echo (06/30/18): --> The left ventricular systolic function is hyperdynamic with an estimated ejection fraction in the range of 65-70%. Normal left ventricular size and wall thickness. No regional wall motion abnormalities are present. Mild thickening of the mitral valve leaflets. Qrlwu-ba-joit mitral valve regurgitation. Diffuse calcificationof the aortic valve. There is no evidence of mass/vegetation on the aortic valve prosthesis. Mild to moderate aortic valve stenosis. Aortic valve area is 1.3 cm. Aortic valve mean gradient is 27.3 mmHg. There is trace-mild tricuspid valve regurgitation. The estimated pulmonary arterial pressure is 52 mmHg Transesophageal Echocardiogram (06/30/18) --> Normal left ventricular size and wall thickness. The left ventricular systolic function is normal with an estimated ejection fraction in the range of 60-65%. Left ventricular diastolic function parameters are normal. The left atrial size is [id number]-nnqzgysqff dilated. Mild thickening of the mitral valve leaflets. Tgmj-fe-wabykufa mitral valve regurgitation. Bileaflet mitral valve prolapse. No mitral valve stenosis. Mild mitral annular calcification. No aortic valve regurgitation. Moderate aortic valve stenosis. Bioprosthetic aortic valve is noted. No vegetation. Structurally normal tricuspid valve. There is trace tricuspid valve regurgitation. Pulmonary arterial systolic pressure could not be estimated due to an insufficient tricuspid valve regurgitation doppler jet for measurement Past Surgical Hx: Left thoracentesis PPM on 07/07/18 Cardiac catheterization 07/13/[address] Elmore --> Severe single-vessel coronary artery disease involving the proximal left anterior descending coronary artery. 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 Social Hx: Denies any tobacco, alcohol or illicit drug use Pt lives locally with his . Diagnosis (1) Thrombocytopenia: (2) CHB (complete heart block): (3) CHF (congestive heart failure): (4) CAD (coronary artery disease): Inpatient Certification Inpatient Certification: I certify that the inpatient services were ordered in accordance with Medicare regulations governing the order. This includes certification that hospital inpatient services are reasonable and necessary and in the case of services not specified as inpatient-only under 42 CFR 419.22(n), that they are appropriately provided as inpatient services in accordance to with the 2-midnight benchmark under 43 CFR 412.3(e) Estimated Total Length of Stay (Days): 3 Plans for Post Hospital Care: Not yet determined Medications and Allergies Allergies Allergy/AdvReac Type Severity Reaction Status Date / Time Idhzlsh-Gen-Zyi Reductase Allergy Severe muscle Verified 08/17/18 12:00 Inhibitor weakness atorvastatin Allergy Mild Muscle Pain Verified 08/17/18 12:00 Home Medications Medication Instructions Recorded Confirmed Type calcitriol 0.25 mcg PO DAILY 06/30/18 08/17/18 History furosemide 40 mg PO DAILY PRN 06/30/18 08/17/18 History insulin aspart U-100 [Novolog 5 unit SUB-Q AC BREAKFAST 06/30/18 08/17/18 History U-100 Insulin aspart] insulin aspart U-100 [Novolog 8 units SUB-Q AC DINNER 06/30/18 08/17/18 History U-100 Insulin aspart] insulin aspart U-100 [Novolog 8 units SUB-Q AC LUNCH 06/30/18 08/17/18 History U-100 Insulin aspart] insulin glargine [Lantus U-100 23 units SUB-Q HS 06/30/18 08/17/18 History Insulin] multivitamin 1 tab PO DAILY 06/30/18 08/17/18 History spironolactone 25 mg PO DAILY 06/30/18 08/17/18 History atenolol 100 mg PO DAILY 08/17/18 08/17/18 History clopidogrel 75 mg PO DAILY 08/17/18 08/17/18 History doxylamine succinate 25 mg PO DAILY 08/17/18 08/17/18 History iron, carbonyl [Feosol] 65 mg PO DAILY 08/17/18 08/17/18 History melatonin 5 mg PO HS 08/17/18 08/17/18 History Active Medications: Active Medications Ondansetron HCl (Zofran Inj) 4 mg IV.PUSH Q6H PRN PRN Reason: NAUSEA OR VOMITING Physical Exam Vital signs: Last Vital Signs Temp 98.5 F 08/17/18 11:59 Pulse 63 08/17/18 11:59 Resp 15 08/17/18 11:59 BP 142/68 H 08/17/18 11:59 Pulse Ox 98 08/17/18 12:46 Narrative: GENERAL: NAD, AAOx3 SKIN: Warm and dry. Petechia on bilateral LE and ecchymosis on dorsal aspect of bilateral feet HEENT: Atraumatic. Normocephalic. Pupils equal and round. No scleral icterus. No injection or drainage. No nasal bleeding or discharge. Mucous membranes pink and moist. NECK: Trachea midline. No JVD. CARDIO: Regular rate and rhythm. RESP: No accessory muscle use. Clear to auscultation. Breath sounds equal bilaterally. ABD: +BS, soft, non-tender, nondistended. MUSCULOSKELETAL: Extremities without clubbing, cyanosis, or edema. No obvious deformities. NEUROLOGICAL: Awake and alert. No obvious cranial nerve deficits. Motor grossly within normal limits. Five out of 5 muscle strength in the arms and legs. Normal speech. PSYCHIATRIC: Appropriate mood and affect; insight and judgment normal. Results Labs CBC & Chem 7: 08/17/18 13:55 08/17/18 09:30 Caprini VTE Risk Assessment Caprini VTE Risk Assessment: Moderate/High Risk (score >= 2) VTE Pharmacological Exception Reason: Thrombocytopenia (<50) and High risk for bleeding Caprini Risk Assessment Model: Point Value = 1 Point Value = 2 Point Value = 3 Point Value = 5 Age 41-60 Minor surgery BMI > 25 kg/m2 Swollen legs Varicose veins or History of unexplained or recurrent spontaneous Oral contraceptives or hormone replacement Sepsis (< 1 month) Serious lung disease, including pneumonia (< 1 month) Abnormal pulmonary function Acute myocardial infarction Congestive heart failure (< 1 month) History of inflammatory bowel disease Medical patient at bed rest Age 61-74 Arthroscopic surgery Major open surgery (> 45 min) Laparoscopic surgery (> 45 min) Malignancy Confined to bed (> 72 hours) Immobilizing plaster cast Central venous access Age >= 75 History of VTE Family history of VTE Factor V Leiden Prothrombin [id number] Lupus anticoagulant Anticardiolipin antibodies Elevated serum homocysteine Heparin-induced thrombocytopenia Other congenital or acquired thrombophilia Stroke (< 1 month) Elective arthroplasty Hip, pelvis, or leg fracture Acute spinal cord injury (< 1 month) Prophylaxis Regimen: Total Risk Factor Score Risk Level Prophylaxis Regimen 0-1 Low Early ambulation 2 Moderate Order ONE of the following: *Sequential Compression Device (SCD) *Heparin 5000 units SQ BID 3-4 Higher Order ONE of the following medications: *Heparin 5000 units SQ TID *Enoxaparin/Lovenox 40 mg SQ daily (WT < 150 kg, CrCl > 30 mL/min) *Enoxaparin/Lovenox 30 mg SQ daily (WT < 150 kg, CrCl > 10-29 mL/min) *Enoxaparin/Lovenox 30 mg SQ BID (WT < 150 kg, CrCl > 30 mL/min) AND/OR *Sequential Compression Device (SCD) 5 or more Highest Order ONE of the following medications: *Heparin 5000 units SQ TID (Preferred with Epidurals) *Enoxaparin/Lovenox 40 mg SQ daily (WT < 150 kg, CrCl > 30 mL/min) *Enoxaparin/Lovenox 30 mg SQ daily (WT < 150 kg, CrCl > 10-29 mL/min) *Enoxaparin/Lovenox 30 mg SQ BID (WT < 150 kg, CrCl > 30 mL/min) AND *Sequential Compression Device (SCD) Assessment and Plan Assessment (1) Thrombocytopenia: Code(s): D69.6 - Thrombocytopenia, unspecified Status: Acute (2) CHB (complete heart block): Code(s): I44.2 - Atrioventricular block, complete Status: Resolved (3) CHF (congestive heart failure): Code(s): I50.9 - Heart failure, unspecified Status: Chronic (4) CAD (coronary artery disease): Code(s): I25.10 - Atherosclerotic heart disease of [place] coronary artery without angina pectoris Status: Chronic Plan Acute thrombocytopenia - Pt is a pleasant 72 y/o WM with prior aortic valve pathology s/p AVR in 2010, hx of diastolic heart failure, CKD, stage III, HTN, CAD, DM and remote hx of ITP. - Pt had a recent complicated hospitalization, details below. Pt had been doing well following that hospitalization. This morning he woke up and noted blood on his pillow. He states that he noted some large bloody blistering on his lips and buccal mucosa. This prompted him to come to the ED for further evaluation. He noted that he began having petechia on his calves and ecchymosis on his feet bilaterally. 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 - Labs at admission noted platelet count of 6,000 which is a significant change from the labs on previous admissions. - His coagulation panel was stable. - Etiology for this new onset thrombocytopenia, petechia, and mucosal bleeding is unclear. Possibilities include medication mediated response like TTP which can be associated with Plavix but there are no other features to suggest TTP at the time of admission (including fever, noted normal bilirubin in the lab work) or immune response, such as ITP. - Pt has been given a unit of Platelets in the ED - Recheck CBC - Monitor labs closely - Hold Plavix and ASA - Hematology consulted, case discussed with Dr. Plascencia. - Start IV Solu-Medrol 60mg IV Q12H - Check LDH, HIT labs, and peripheral smear - Monitor for any signs of TTP - If refractory may need to consider plasmaphoresis vs. Rituximab - Recheck coags in AM - Liquid diet - Monitor for any spontaneous bleeding. - Supportive care Complete heart block s/p PPM CAD/recent NSTEMI s/p CALI on 07/13/18 - Pt recently had a prolonged hospitalization after he was transferred to [facility] [facility] from [facility] with complete heart block and junctional escape rhythm in the setting of acute diastolic HF, fever, leukocytosis, and CKD stage 3. There was concern for possible bacterial endocarditis initially in this setting , however transthoracic echocardiogram and transesophageal echocardiogram did not reveal any valvular vegetations. Pt had a Medtronic dual chamber PPM place on 07/07/18. Pt was given diuresis with Aldactone and Lasix and underwent a thoracentesis on 07/11 with removal of 800ml fluid. On 07/12 pt was found to have elevated troponin of 5.11 which trended to 4.24 and 3.24. He underwent cardiac catheterization on 07/13/[address] Elmore s/p PCI with CALI to LAD lesion. Pt was started on ASA and Plavix for the CALI. - Consult Cardiology, case discussed with Dr. Elmore - Pts Plavix and ASA have to be held at this time. CHF with preserved LV function - Currently compensated - Pt was taken off Lasix, to be used as needed for any LE edema - He was continued on Aldactone - Cont. BB Diabetes mellitus - NovoLog SSI - Accu checks CKD, stage 3 - labs are stable _ (1) CHF (congestive heart failure) Qualifiers: Heart failure chronicity: Heart failure type:
[2018-08-17] MEDS ORDERED: Dextrose 50% in Water 50 ML Vial IV.PUSH PRN (14:09)
[2018-08-17 14:24] LABS: Baso # (Auto) 0.1 th/mm3 (0.0-0.2); Baso % (Auto) 1.4 % (0.0-2.0); Eos # (Auto) 0.2 th/mm3 (0.0-0.4); Eos % (Auto) 2.1 % (0.0-4.0); Hemoglobin 11.2 gm/dL (13.0-17.0); Lymph # (Auto) 3.2 th/mm3 (1.0-4.8); Lymph % (Auto) 31.5 % (9.0-44.0); Mean Corpuscular HGB Conc 33.1 % (32.0-36.0); Mean Corpuscular Hemoglobin 31.1 pg (27.0-34.0); Mean Corpuscular Volume 94.1 fL (80.0-100.0); Mean Platelet Volume 7.4 fL (7.0-11.0); Mono # (Auto) 1.2 th/mm3 (0.0-0.9); Mono % (Auto) 11.5 % (0.0-8.0); Neut # (Auto) 5.5 th/mm3 (1.8-7.7); Neut % (Auto) 53.5 % (16.0-70.0); Platelet Count 24 th/mm3 (150-450); Red Blood Count 3.61 mil/mm3 (4.50-5.90); White Blood Count 10.3 th/mm3 (4.0-11.0)
[2018-08-17] MEDS: MethylPREDNISolone Sod Succinate Inj 125 MG/2 ML Vial IV.PUSH SCH ×2 (14:39→23:23)
[2018-08-17 14:56] LABS: Ovalocytes 1+; Platelet Morphology Normal (Normal)
--- NOTE | 2018-08-17 15:42 | P.CONCA ---
History of Present Illness Service: Cardiology Consult date: 08/17/18 Requesting Physician: Josiah Elmore Reason for Consult: Thrombocytopenia Primary Care Provider: Hussein Morgan MD, PhD Chief Complaint: Mucosal bleeding History of Present Illness: This is a 72-year-old gentleman who has history of aortic valve disease status post aortic valve replacement, chronic kidney disease, congestive heart failure , recently diagnosed coronary artery disease status post percutaneous coronary intervention with drug-eluting stent on July 13, 2018. Patient also had recent permanent pacemaker placed on July 07, 2018. Patient was seen in the outpatient setting recently and seemed to be doing well. Patient reports that last night he woke up and had petechiae over his calves and ecchymosis in his feet bilaterally. He also had blistering of his lips with buccal mucosa. Patient has prior history of ITP and required splenectomy. Patient's platelet count was 6000. Patient was given intravenous steroids and platelet transfusion. Platelets are now up to 24,000. Patient denies any chest pain. We are consulted given recent percutaneous coronary intervention and to help decide future at the platelet therapy. Review of Systems All other systems reviewed negative except as stated in HPI PMFSH - History History Provided By: Patient, Family Member - Medical History Medical History: Medical History (Last Reviewed 08/17/18 @ 13:53 by Omari Luciano) Idiopathic thrombocytopenia purpura CAD (coronary artery disease) CHF (congestive heart failure) CKD (chronic kidney disease) stage 3, GFR 30-59 ml/min Diabetes HLD (hyperlipidemia) HTN (hypertension) - Surgical History Surgical History: Surgical History (Last Reviewed 08/17/18 @ 13:54 by Omari Luciano) History of hip replacement History of splenectomy S/P AVR (aortic valve replacement) - Family History Family History: Family History (Last Reviewed 08/17/18 @ 13:54 by Omari Luciano) Mother Pacemaker - Tobacco History Second Hand Smoke Exposure: No Smoking Status: Never smoker - Alcohol History How Often Do You Have a Drink Containing Alcohol: Monthly or less - Substance Use History Substance History: No History of Abuse - Travel History Recent Travel in the [place] Within the Last 8 Weeks: No Recent Travel Out of the Country Within the Last 8 Weeks: No - Immunization History Tetanus Immunization: <5 Years Medications and Allergies Active Medications: Active Medications Atenolol (Tenormin) 100 mg PO DAILY [facility] Calcitriol (Rocaltrol) 0.25 mcg PO DAILY [facility] Dextrose (D50w Vial) 50 ml IV.PUSH UNSCH PRN PRN Reason: PER HYPOGLYCEMIA PROTOCOL Glucagon (Glucagon Inj) 1 mg OTHER PRN PRN PRN Reason: for Hypoglycemia Protocol Insulin Aspart (Novolog Insulin Correctional Sugar Inj) 0 unit SQ ACHS [facility]; Protocol Melatonin (Melatonin) 5 mg PO HS [facility] Methylprednisolone Sodium Succinate (Solumedrol Inj) 60 mg IV.PUSH Q12HR [facility] Last Admin: 08/17/18 14:39 Dose: 60 mg Ondansetron HCl (Zofran Inj) 4 mg IV.PUSH Q6H PRN PRN Reason: NAUSEA OR VOMITING Spironolactone (Aldactone) 25 mg PO DAILY [facility] Allergies Allergy/AdvReac Type Severity Reaction Status Date / Time Nwrqfww-Xae-Siv Reductase Allergy Severe muscle Verified 08/17/18 12:00 Inhibitor weakness atorvastatin Allergy Mild Muscle Pain Verified 08/17/18 12:00 Home Medications Medication Instructions Recorded Confirmed Type calcitriol 0.25 mcg PO DAILY 06/30/18 08/17/18 History furosemide 40 mg PO DAILY PRN 06/30/18 08/17/18 History insulin aspart U-100 [Novolog 5 unit SUB-Q AC BREAKFAST 06/30/18 08/17/18 History U-100 Insulin aspart] insulin aspart U-100 [Novolog 8 units SUB-Q AC DINNER 06/30/18 08/17/18 History U-100 Insulin aspart] insulin aspart U-100 [Novolog 8 units SUB-Q AC LUNCH 06/30/18 08/17/18 History U-100 Insulin aspart] insulin glargine [Lantus U-100 23 units SUB-Q HS 06/30/18 08/17/18 History Insulin] multivitamin 1 tab PO DAILY 06/30/18 08/17/18 History spironolactone 25 mg PO DAILY 06/30/18 08/17/18 History atenolol 100 mg PO DAILY 08/17/18 08/17/18 History clopidogrel 75 mg PO DAILY 08/17/18 08/17/18 History doxylamine succinate 25 mg PO DAILY 08/17/18 08/17/18 History iron, carbonyl [Feosol] 65 mg PO DAILY 08/17/18 08/17/18 History melatonin 5 mg PO HS 08/17/18 08/17/18 History Exam Vital signs: Vital Signs 08/17/18 09:03 08/17/18 09:14 08/17/18 11:25 Temperature 98.4 F 98.5 F Pulse Rate 85 76 61 Respiratory Rate 16 18 16 Blood Pressure 170/84 H 165/81 H 151/69 H Pulse Oximetry 98 97 98 08/17/18 11:45 08/17/18 11:59 08/17/18 12:46 Temperature 98.4 F 98.5 F Pulse Rate 75 63 Respiratory Rate 15 15 Blood Pressure 166/70 H 142/68 H Pulse Oximetry 98 98 98 08/17/18 13:07 08/17/18 14:35 Temperature Pulse Rate 60 61 Respiratory Rate 14 Blood Pressure 142/71 H Pulse Oximetry 97 Intake & Output 08/16/18 08/17/18 08/17/18 18:59 06:59 18:59 Intake Total 233 / 233 Balance 233 / 233 Weight 74.843 kg Intake: Intake (Blood Product) Amt 233 / 233 Plt Pheresis A Leukoreduced 233 / 233 Unit [id number] Other: # Voids 350 - Constitutional no acute distress - Routine HEENT Exam Eye: Present: EOMI, PERRL ENT: Present: mucous membranes moist - Routine Neck Exam Absent: JVD - Routine Respiratory Exam Present: CTA bilaterally - Routine Cardiovascular Exam Present: RRR - Routine Abdominal Exam Present: soft, normoactive bowel sounds - Routine Extremities Exam Absent: edema - Routine Neurological Exam Present: oriented X3, CN II-XII intact. Absent: sensory deficit, motor deficit Results 08/17/18 13:55 08/17/18 09:30 Cardiac Enzymes 08/17/18 Range/Units 09:30 AST 18 (15-37) U/L Coagulation 08/17/18 Range/Units 09:30 PT 10.3 (9.8-11.6) sec APTT 23.8 L (24.3-30.1) sec CBC 08/17/18 08/17/18 Range/Units 09:30 13:55 WBC 12.5 H 10.3 (4.0-11.0) th/mm3 RBC 3.92 L 3.61 L (4.50-5.90) mil/mm3 Hgb 11.9 L 11.2 L (13.0-17.0) gm/dL Hct 36.5 L 34.0 L (39.0-51.0) % Plt Count 6 L* D 24 L D (150-450) th/mm3 Neut # (Auto) 7.2 5.5 (1.8-7.7) th/mm3 Lymph # (Auto) 3.3 3.2 (1.0-4.8) th/mm3 [place] # (Auto) 1.6 H 1.2 H (0.0-0.9) th/mm3 Eos # (Auto) 0.3 0.2 (0.0-0.4) th/mm3 Baso # (Auto) 0.2 0.1 (0.0-0.2) th/mm3 Comprehensive Metabolic Panel 08/17/18 Range/Units 09:30 Sodium 140 (136-145) meq/L Potassium 4.3 (3.5-5.1) meq/L Chloride 108 H (98-107) meq/L Carbon Dioxide 24.1 (21.0-32.0) meq/L BUN 35 H (7-18) mg/dL Creatinine 1.22 (0.60-1.30) mg/dL Calcium 9.1 (8.5-10.1) mg/dL AST 18 (15-37) U/L ALT 19 (12-78) U/L Alkaline Phosphatase 84 (45-117) U/L Total Protein 7.3 (6.4-8.2) g/dL Albumin 3.1 L (3.4-5.0) g/dL Intake and Output 08/17/18 08/17/18 08/17/18 06:59 14:59 22:59 Intake Total 233 / 233 Balance 233 / 233 Intake: Intake (Blood Product) Amt 233 / 233 Plt Pheresis A Leukoreduced 233 / 233 Unit [id number] Other: # Voids 350 Weight 74.843 kg Patient Weight 08/18/18 06:59 Weight 74.843 kg Assessment and Plan - Assessment (1) CAD (coronary artery disease) Code(s): I25.10 - Atherosclerotic heart disease of [place] coronary artery without angina pectoris Status: Chronic (2) Thrombocytopenia Code(s): D69.6 - Thrombocytopenia, unspecified Status: Acute - Plan Thrombocytopenia Recent PCI CALI Recent PPM Need to determine etiology for thrombocytopenia. ITP vs TTP vs drug reaction Hematology consulted Labs ordered for platelet workup Platelets up from 6 -> 24K Platelet function likely normal, just reduced when Platelet count > 30-50K range, we are going to need to initiate anti- platelet therapy or run the risk of acute stent thrombosis. Steroid started If hematology comfortable restarting plavix/aspirin in the setting of immunomodulatory medications, then restart If not comfortable with plavix, then ticlid, brilinta, and effient would be similar. Would consider cilostazol (platelet inhibitor with completely different pathophysiology and no cross-reactivity. Await further workup
[2018-08-17] MEDS: Insulin NovoLOG Aspart Correctional Sugar Inj SQ SCH ×2 (17:12→23:23)
--- NOTE | 2018-08-17 19:58 | MB ---
cc: Mike Plascencia MD DATE: 08/17/2018 REFERRING PHYSICIAN: Tiago Arias MD REASON FOR CONSULTATION: Hematology consult rendered. Patient with severe symptomatic thrombocytopenia. HISTORY OF PRESENT ILLNESS: The patient is a very pleasant 72-year-old male with history of idiopathic thrombocytopenic purpura presents to the hospital with bleeding from his mouth and lips. He was recently admitted to the hospital for heart block. He had a pacemaker placement. He also had cardiac catheterization with placement of a drug-eluting stent to LAD on 07/13/2018. He was then discharged home with Plavix and aspirin. He was feeling better and this morning he woke up noting a lot of blood on his pillow. He was bleeding from blister in his lips and mouth. He came to the emergency room and noted a platelet count of 6000. He also noted petechia on his lower extremities. He stated he had idiopathic thrombocytopenic purpura about 40 years ago. He could not remember how he was treated at that time. About 17 years ago, he had another episode and was treated with steroids. About 13 years ago, he had exacerbation and has 1 day performed a splenectomy. Since then, he has been in remission. He denies any fever or chills. He has no chest pain or palpitations. He denies shortness of breath or cough. He denies any nausea or vomiting. He denies any abdominal pain. He denies any melena, hematochezia. He denies any dysuria or hematuria. He denies any epistaxis. He was exposed to heparin during his last admission. He denies any recent viral infection and using any new [id number] medications. PAST MEDICAL HISTORY: 1. Coronary artery disease. 2. Aortic valve disease. 3. Heart failure. 4. Chronic kidney disease stage III. 5. Hypertension. 6. Diabetes mellitus. 7. Hyperlipidemia. 8. Idiopathic thrombocytopenic purpura as above. PAST SURGICAL HISTORY: 1. Aortic valve replacement in 2010 2. Left thoracentesis 06/2018. 3. Cardiac catheterization with placement of a drug-eluting stent 07/13/2018. 4. Splenectomy about 13 years ago. 5. Right total hip replacement 03/2018. FAMILY HISTORY: No hematologic disorder in the family. Has 1 brother and 1 sister, both healthy. He has a daughter also healthy. SOCIAL HISTORY: Denies tobacco and alcohol use. ALLERGIES: STATIN. CURRENT MEDICATIONS: 1. Atenolol. 2. Calcitriol. 3. Melatonin. 4. Solu-Medrol 5. Aldactone. REVIEW OF SYSTEMS: CONSTITUTIONAL: As above. EYES: Negative. ENT: Negative. CARDIOVASCULAR: As above. RESPIRATORY: Negative. GASTROINTESTINAL: Negative. GENITOURINARY: Negative. MUSCULOSKELETAL: Negative. HEMATOLOGIC: As above. ENDOCRINE: Negative. DERMATOLOGY: As above. NEUROLOGIC: Negative. PSYCHIATRIC: Negative. PHYSICAL EXAMINATION: VITAL SIGNS: Temperature 97.5, blood pressure 153/67, O2 saturation 96% on room air. GENERAL: He is alert, oriented x3, in no acute distress, sitting in a chair comfortably. HEENT: Atraumatic, normocephalic. Pupils are equal, round, reactive to light. Oropharynx, dry mucosa. He has a few blood blister noted. No active bleeding noted. Petechiae noted. NECK: No thyromegaly. No palpable mass. LYMPHATIC: No palpable cervical, clavicular, axillary or inguinal lymph nodes. HEART: Regular S1, S2. No murmur. LUNGS: Clear to auscultation bilaterally, wheezing and rhonchi. ABDOMEN: Soft, nontender. Cannot palpate liver or spleen. EXTREMITIES: No cyanosis, clubbing, edema. BACK: No paravertebral tenderness. SKIN: There is petechia in the lower extremities. LABORATORY DATA: WBC 12.5, hemoglobin 11.9, platelet count 6000. Repeat CBC done showed WBC 10.3, hemoglobin 11.2, platelet count 24,000. INR 1.0, PTT 23.8, creatinine 1.2. Liver transaminase within normal limits. ASSESSMENT: 1. Acute severe thrombocytopenia. When he was discharged from the hospital 07/18/2018, his platelet count was normal at 264,000. The patient had a history of idiopathic thrombocytopenic purpura reportedly 40 years ago. He had exacerbation about 17 years ago and treated with steroids with good response. About 4 years later, he had another exacerbation and had splenectomy. Since then reportedly he has been in remission. He presented today with bleeding from his gums and lips. He also has petechiae. His platelet count was 6000. The clinical picture is suggestive of idiopathic thrombocytopenic purpura. This could be triggered by his recent medication. I have reviewed his peripheral smear, which did not show significant schistocytes or platelet clumping. I think this is less likely to be thrombotic thrombocytopenic purpura. Other differential includes heparin-induced thrombocytopenia since he was exposed to heparin during his last hospital stay, but again I think it is less likely. His white blood cell count and hemoglobin are quite stable and I doubt that this is primary bone marrow disorder. The patient was given 1 unit of platelet transfusion today and his platelet count trended up from 6000-24,000. I have discussed his case with Dr. Arias and we will start him on Solu-Medrol and monitor him. Given his recent heart disease, we will hold off on giving him IVIG at this point. If he has response to Solu-Medrol, then we could switch him to prednisone. Discussed case with the patient and his questions were answered. 2. Coronary artery disease. He recently had placement of drug-eluting stent to the left anterior descending artery. He was started on Plavix and aspirin. Due to the severe thrombocytopenia, the antiplatelet agent had been discontinued. Cardiology is following. 3. Chronic kidney disease, stage III. 4. Hypertension. 5. Diabetes mellitus. 6. Hyperlipidemia. PLAN: 1. Extensive discussion with the patient. 2. Review his peripheral smear. 3. We will check LDH and HIT rapid assay. Continue Solu-Medrol for now. 4. Monitor CBC. 5. Discussed case with Dr. Arias. Thank you Dr. Arias for asking me to see this patient. MD EV Almazan/sv/cat , 05:59 PM , 06:14 PM
[2018-08-17] MEDS: Melatonin 5 MG Tablet PO SCH (23:23)
[2018-08-18 06:59] LABS: Baso % (Auto) 0.2 % (0.0-2.0); Hematocrit 32.9 % (39.0-51.0); Hemoglobin 11.1 gm/dL (13.0-17.0); Lymph % (Auto) 18.8 % (9.0-44.0); Mean Corpuscular HGB Conc 33.7 % (32.0-36.0); Mean Corpuscular Hemoglobin 30.9 pg (27.0-34.0); Mean Corpuscular Volume 91.7 fL (80.0-100.0); Mean Platelet Volume 11.3 fL (7.0-11.0); Mono # (Auto) 0.2 th/mm3 (0.0-0.9); Mono % (Auto) 1.5 % (0.0-8.0); Neut # (Auto) 8.5 th/mm3 (1.8-7.7); Neut % (Auto) 79.5 % (16.0-70.0); Red Blood Count 3.59 mil/mm3 (4.50-5.90); Red Cell Distribution Width 15.6 % (11.6-17.2); White Blood Count 10.7 th/mm3 (4.0-11.0)
[2018-08-18 07:08] LABS: Platelet Count 5 th/mm3 (150-450)
[2018-08-18 07:22] LABS: Calcium 9.3 mg/dL (8.5-10.1); Carbon Dioxide 22.2 meq/L (21.0-32.0); Potassium 4.4 meq/L (3.5-5.1)
[2018-08-18 08:39] LABS: Acanthocytes Occ; Howell-Jolly Bodies Present
[2018-08-18 08:40] LABS: Platelet Estimate Rare (Normal)
--- NOTE | 2018-08-18 08:41 | P.PNCA ---
Subjective Interval history: Patient seen and examined. Patient with some spontaneous bleeding from mouth overnight again. No chest pain, palp, dyspnea, LE edema, PND or orthopnea. PLTs dropped again from 24-->5 with this AM labs. Medications and Allergies Active Medications: Active Medications Atenolol (Tenormin) 100 mg PO DAILY [facility] Calcitriol (Rocaltrol) 0.25 mcg PO DAILY GLENIS Dextrose (D50w Vial) 50 ml IV.PUSH UNSCH PRN PRN Reason: PER HYPOGLYCEMIA PROTOCOL Glucagon (Glucagon Inj) 1 mg OTHER PRN PRN PRN Reason: for Hypoglycemia Protocol Insulin Aspart (Novolog Insulin Correctional Sugar Inj) 0 unit SQ ACHS GLENIS; Protocol Last Admin: 08/17/18 23:23 Dose: 10 unit Insulin Detemir (Levemir Inj) 10 unit SQ BID GLENIS Melatonin (Melatonin) 5 mg PO HS [facility] Last Admin: 08/17/18 23:23 Dose: 5 mg Methylprednisolone Sodium Succinate (Solumedrol Inj) 60 mg IV.PUSH Q12HR GLENIS Last Admin: 08/17/18 23:23 Dose: 60 mg Ondansetron HCl (Zofran Inj) 4 mg IV.PUSH Q6H PRN PRN Reason: NAUSEA OR VOMITING Spironolactone (Aldactone) 25 mg PO DAILY [facility] Allergies Allergy/AdvReac Type Severity Reaction Status Date / Time Tqxtxfk-Wzh-Kum Reductase Allergy Severe muscle Verified 08/17/18 12:00 Inhibitor weakness atorvastatin Allergy Mild Muscle Pain Verified 08/17/18 12:00 Home Medications Medication Instructions Recorded Confirmed Type calcitriol 0.25 mcg PO DAILY 06/30/18 08/17/18 History furosemide 40 mg PO DAILY PRN 06/30/18 08/17/18 History insulin aspart U-100 [Novolog 5 unit SUB-Q AC BREAKFAST 06/30/18 08/17/18 History U-100 Insulin aspart] insulin aspart U-100 [Novolog 8 units SUB-Q AC DINNER 06/30/18 08/17/18 History U-100 Insulin aspart] insulin aspart U-100 [Novolog 8 units SUB-Q AC LUNCH 06/30/18 08/17/18 History U-100 Insulin aspart] insulin glargine [Lantus U-100 23 units SUB-Q HS 06/30/18 08/17/18 History Insulin] multivitamin 1 tab PO DAILY 06/30/18 08/17/18 History spironolactone 25 mg PO DAILY 06/30/18 08/17/18 History atenolol 100 mg PO DAILY 08/17/18 08/17/18 History clopidogrel 75 mg PO DAILY 08/17/18 08/17/18 History doxylamine succinate 25 mg PO DAILY 08/17/18 08/17/18 History iron, carbonyl [Feosol] 65 mg PO DAILY 08/17/18 08/17/18 History melatonin 5 mg PO HS 08/17/18 08/17/18 History Physical Exam Vital signs: Vital Signs 08/17/18 09:03 08/17/18 09:14 08/17/18 11:25 Temperature 98.4 F 98.5 F Pulse Rate 85 76 61 Respiratory Rate 16 18 16 Blood Pressure 170/84 H 165/81 H 151/69 H Pulse Oximetry 98 97 98 08/17/18 11:45 08/17/18 11:59 08/17/18 12:46 Temperature 98.4 F 98.5 F Pulse Rate 75 63 Respiratory Rate 15 15 Blood Pressure 166/70 H 142/68 H Pulse Oximetry 98 98 98 08/17/18 13:07 08/17/18 14:35 08/17/18 16:00 Temperature 97.5 F L Pulse Rate 60 61 65 Respiratory Rate 14 16 Blood Pressure 142/71 H 153/67 H Pulse Oximetry 97 96 08/17/18 20:00 08/18/18 00:00 08/18/18 04:00 Temperature 97.9 F 97.1 F L 97.3 F L Pulse Rate 62 66 65 Respiratory Rate 20 20 20 Blood Pressure 150/73 H 161/78 H 141/67 H Pulse Oximetry 98 97 98 08/18/18 04:38 Temperature Pulse Rate 65 Respiratory Rate Blood Pressure Pulse Oximetry Intake & Output 08/17/18 08/18/18 08/18/18 18:59 06:59 18:59 Intake Total 233 / 233 360 / 360 Balance 233 / 233 360 / 360 Weight 74.843 kg 68.7 kg Intake: Oral 360 / 360 Intake (Blood Product) Amt 233 / 233 Plt Pheresis A Leukoreduced 233 / 233 Unit [id number] Other: # Voids 350 2 Narrative: GENERAL: AOx 3, very pleasant and well appearing. SKIN: Warm and dry. HEAD: Atraumatic. Normocephalic. EYES: Pupils equal and round. No scleral icterus. No injection or drainage. ENT: No nasal bleeding or discharge. some crusted blood on lips. NECK: Trachea midline. No JVD. CARDIOVASCULAR: Regular rate and rhythm. PPM placed in left chest wall. RESPIRATORY: No accessory muscle use. Clear to auscultation. Breath sounds equal bilaterally. GASTROINTESTINAL: Abdomen soft, non-tender, nondistended. MUSCULOSKELETAL: Extremities without clubbing, cyanosis, or edema. No obvious deformities. NEUROLOGICAL: Awake and alert. No obvious cranial nerve deficits. Normal speech. PSYCHIATRIC: Appropriate mood and affect; insight and judgment normal. Results 08/18/18 04:15 08/18/18 04:15 Cardiac Enzymes 08/17/18 08/17/18 Range/Units 09:30 20:05 AST 18 (15-37) U/L Lactate Dehydrogenase 237 (87-241) U/L Coagulation 08/17/18 Range/Units 09:30 PT 10.3 (9.8-11.6) sec APTT 23.8 L (24.3-30.1) sec CBC 08/17/18 08/17/18 08/18/18 Range/Units 09:30 13:55 04:15 WBC 12.5 H 10.3 10.7 (4.0-11.0) th/mm3 RBC 3.92 L 3.61 L 3.59 L (4.50-5.90) mil/mm3 Hgb 11.9 L 11.2 L 11.1 L (13.0-17.0) gm/dL Hct 36.5 L 34.0 L 32.9 L (39.0-51.0) % Plt Count 6 L* D 24 L D 5 L* D (150-450) th/mm3 Neut # (Auto) 7.2 5.5 8.5 H (1.8-7.7) th/mm3 Lymph # (Auto) 3.3 3.2 2.0 (1.0-4.8) th/mm3 [place] # (Auto) 1.6 H 1.2 H 0.2 (0.0-0.9) th/mm3 Eos # (Auto) 0.3 0.2 0.0 (0.0-0.4) th/mm3 Baso # (Auto) 0.2 0.1 0.0 (0.0-0.2) th/mm3 Comprehensive Metabolic Panel 08/17/18 08/18/18 Range/Units 09:30 04:15 Sodium 140 139 (136-145) meq/L Potassium 4.3 4.4 (3.5-5.1) meq/L Chloride 108 H 106 (98-107) meq/L Carbon Dioxide 24.1 22.2 (21.0-32.0) meq/L BUN 35 H 33 H (7-18) mg/dL Creatinine 1.22 1.22 (0.60-1.30) mg/dL Calcium 9.1 9.3 (8.5-10.1) mg/dL AST 18 (15-37) U/L ALT 19 (12-78) U/L Alkaline Phosphatase 84 (45-117) U/L Total Protein 7.3 (6.4-8.2) g/dL Albumin 3.1 L (3.4-5.0) g/dL Intake and Output 08/17/18 08/18/18 08/18/18 22:59 06:59 14:59 Intake Total 360 / 360 Balance 360 / 360 Intake: Oral 360 / 360 Other: # Voids 350 2 Weight 68.7 kg Assessment and Plan - Assessment (1) CAD (coronary artery disease) Code(s): I25.10 - Atherosclerotic heart disease of [place] coronary artery without angina pectoris Status: Chronic (2) Thrombocytopenia Code(s): D69.6 - Thrombocytopenia, unspecified Status: Acute - Plan Critical Thrombocytopenia Recent PCI CALI Recent PPM Need to determine etiology for thrombocytopenia. ITP vs TTP vs drug reaction Hematology following Labs ordered for platelet workup Platelets trend from 6 -> 24K ->5 with solumedrol when Platelet count > 30-50K range, we are going to need to initiate anti- platelet therapy or run the risk of acute stent thrombosis. Would consider brilinta, effient or ticlid at that time and avoid plavix as it is being considered as possible culprit for inducing thrombocytopenia. Steroid started, hematology considering IVIG If hematology comfortable restarting plavix/aspirin in the setting of immunomodulatory medications, then restart May consider cilostazol (platelet inhibitor with completely different pathophysiology and no cross-reactivity. Await further workup Plan discussed with Dr Arias and Dr Plascencia.
[2018-08-18] MEDS: Calcitriol 0.25 MCG Capsule PO SCH (08:47)
[2018-08-18] MEDS: Atenolol 100 MG Tablet PO SCH (08:47)
[2018-08-18] MEDS: MethylPREDNISolone Sod Succinate Inj 125 MG/2 ML Vial IV.PUSH SCH ×2 (08:47→20:44)
[2018-08-18] MEDS: Insulin NovoLOG Aspart Correctional Sugar Inj SQ SCH ×4 (09:40→20:44)
[2018-08-18] MEDS: Insulin Detemir Inj 1,000 UNIT/10 ML Vial SQ SCH ×2 (09:40→20:44)
[2018-08-18] MEDS: Spironolactone 25 MG Tablet PO SCH (09:40)
--- NOTE | 2018-08-18 09:59 | P.PNIM ---
Subjective Interval history: pt ambulating to bathroom when I arrived minimal bleeding from mouth overnight. no h/a. no complaints. Physical Exam Vital signs: Last Vital Signs Temp 97.8 F 08/18/18 08:44 Pulse 66 08/18/18 08:44 Resp 14 08/18/18 08:44 BP 154/70 H 08/18/18 08:44 Pulse Ox 97 08/18/18 08:44 Narrative: oral mucosa with blood blisters heart reg lung cta abd s/nt ext no edema lower ext petechiae and pedal ecchymosis. improved Results Labs CBC & Chem 7: 08/18/18 04:15 08/18/18 04:15 Assessment and Plan Assessment (1) CAD (coronary artery disease): Code(s): I25.10 - Atherosclerotic heart disease of [place] coronary artery without angina pectoris Status: Chronic (2) Thrombocytopenia: Code(s): D69.6 - Thrombocytopenia, unspecified Status: Acute Plan Acute thrombocytopenia - Pt is a pleasant 72 y/o WM with prior aortic valve pathology s/p AVR in 2010, hx of diastolic heart failure, CKD, stage III, HTN, CAD, DM and remote hx of ITP. - Pt had a recent complicated hospitalization, details below. Pt had been doing well following that hospitalization. This morning he woke up and noted blood on his pillow. He states that he noted some large bloody blistering on his lips and buccal mucosa. This prompted him to come to the ED for further evaluation. He noted that he began having petechia on his calves and ecchymosis on his feet bilaterally. 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 - Labs at admission noted platelet count of 6,000 which is a significant change from the labs on previous admissions. 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 ldh nml. TTP and HIT seem unlikely so far s/p 1 unit plt 08/[address] Plascencia and Tyrell cont solumedrol. IVIG today give another unit plt's today when we get to above 30k on the plts will rechallenge with dual anti plt therapy to protect the wilbur. add basal insulin with ssi for steroid hyperglycemia. Complete heart block s/p PPM CAD/recent NSTEMI s/p WILBUR on 07/13/18 - Pt recently had a prolonged hospitalization after he was transferred to [facility] from [facility] with complete heart block and junctional escape rhythm in the setting of acute diastolic HF, fever, leukocytosis, and CKD stage 3. There was concern for possible bacterial endocarditis initially in this setting , however transthoracic echocardiogram and transesophageal echocardiogram did not reveal any valvular vegetations. Pt had a [employer] dual chamber PPM place on 07/07/18. Pt was given diuresis with Aldactone and Lasix and underwent a thoracentesis on 07/11 with removal of 800ml fluid. On 07/12 pt was found to have elevated troponin of 5.11 which trended to 4.24 and 3.24. He underwent cardiac catheterization on 07/13/[address] Elmore s/p PCI with WILBUR to LAD lesion. Pt was started on ASA and Plavix for the WILBUR. - Consult Cardiology, case discussed with Dr. Elmore - Pts Plavix and ASA have to be held at this time. CHF with preserved LV function - Currently compensated - Pt was taken off Lasix, to be used as needed for any LE edema - He was continued on Aldactone - Cont. BB Diabetes mellitus - NovoLog SSI - Accu checks add levemir. pt has steroid hyperglycemia CKD, stage 3 - labs are stable Progress Note: Quality VTE Deep Vein Thrombosis/Pulmonary Embolism Present on Admission: No _ (1) CAD (coronary artery disease) Qualifiers: Coronary Disease-Associated Artery/Lesion type: [place] vs. transplanted heart: Associated angina:
[2018-08-18] MEDS ORDERED: IVIG IMMUNE GLOBULIN IV.SIG SCH (11:00)
--- NOTE | 2018-08-18 14:27 | P.PNONC ---
Subjective Interval history: Patient sitting up in chair, eating lunch. He is on liquid diet and request no sugar due to his diabetes. Discussed elevated blood sugars with patient and his related to steroid use. Patient denies any bleeding. Status post 1 unit of platelets this a.m., currently receiving IVIG. Objective Vital Signs/Intake & Output: Vital Signs 08/17/18 14:35 08/17/18 16:00 08/17/18 20:00 Temperature 97.5 F L 97.9 F Pulse Rate 61 65 62 Respiratory Rate 14 16 20 Blood Pressure 142/71 H 153/67 H 150/73 H Pulse Oximetry 97 96 98 08/18/18 00:00 08/18/18 04:00 08/18/18 04:38 Temperature 97.1 F L 97.3 F L Pulse Rate 66 65 65 Respiratory Rate 20 20 Blood Pressure 161/78 H 141/67 H Pulse Oximetry 97 98 08/18/18 08:00 08/18/18 08:44 08/18/18 11:34 Temperature 97.3 F L 97.8 F 97.7 F Pulse Rate 70 66 61 Respiratory Rate 18 14 16 Blood Pressure 149/65 H 154/70 H 154/70 H Pulse Oximetry 97 97 08/18/18 11:49 08/18/18 12:35 08/18/18 14:03 Temperature 97.8 F 98.1 F 97.8 F Pulse Rate 62 64 65 Respiratory Rate Blood Pressure 156/72 H 150/79 H 146/70 H Pulse Oximetry 93 L 99 95 Intake & Output 08/17/18 08/18/18 08/18/18 18:59 06:59 18:59 Intake Total 233 / 233 360 / 360 0 / 0 Balance 233 / 233 360 / 360 0 / 0 Weight 74.843 kg 68.7 kg Intake: Oral 360 / 360 Intake (Blood Product) Amt 233 / 233 0 / 0 Plt Pheresis A Leukoreduced 233 / 233 Unit [id number] Plt Pheresis B Leukoreduced 0 / 0 Unit [id number] Other: # Voids 350 2 Result Diagrams: 08/18/18 04:15 08/18/18 04:15 Laboratory Results: Laboratory Results - last 24 hr 08/17/18 08/17/18 08/17/18 13:55 14:22 20:05 WBC 10.3 RBC 3.61 L Hgb 11.2 L Hct 34.0 L MCV 94.1 MCH 31.1 MCHC 33.1 RDW 16.0 Plt Count 24 L D MPV 7.4 Prelim Diff (Auto) Slide review pending Neut % (Auto) 53.5 Lymph % (Auto) 31.5 [place] % (Auto) 11.5 H Eos % (Auto) 2.1 Baso % (Auto) 1.4 Neut # (Auto) 5.5 Lymph # (Auto) 3.2 [place] # (Auto) 1.2 H Eos # (Auto) 0.2 Baso # (Auto) 0.1 WBC Differential . Diff Scan Auto diff confirmed Differential Comment . Platelet Estimate Low L Platelet Morphology Normal Ovalocytes 1+ H [place] Bodies Acanthocytes (Spur) Keratocytes Smear Path Review Sodium Potassium Chloride Carbon Dioxide Anion Gap BUN Creatinine Estimated GFR POC Glucose Random Glucose Calcium Lactate Dehydrogenase 237 Heparin Dep Plt Ab OD Hep-Induced Plt Ab Colleen Bld Prod Order Comment 08/17/18 08/17/18 08/18/18 20:05 20:52 04:15 WBC 10.7 RBC 3.59 L Hgb 11.1 L Hct 32.9 L MCV 91.7 MCH 30.9 MCHC 33.7 RDW 15.6 Plt Count 5 L* D MPV 11.3 H Prelim Diff (Auto) Slide review pending Neut % (Auto) 79.5 H Lymph % (Auto) 18.8 [place] % (Auto) 1.5 Eos % (Auto) 0.0 Baso % (Auto) 0.2 Neut # (Auto) 8.5 H Lymph # (Auto) 2.0 [place] # (Auto) 0.2 Eos # (Auto) 0.0 Baso # (Auto) 0.0 WBC Differential . Diff Scan Auto diff confirmed Differential Comment . Platelet Estimate Rare L Platelet Morphology Enlarged H Ovalocytes [place] Bodies Present H Acanthocytes (Spur) Occ H Keratocytes Occ H Smear Path Review Sodium Potassium Chloride Carbon Dioxide Anion Gap BUN Creatinine Estimated GFR POC Glucose 319 H Random Glucose Calcium Lactate Dehydrogenase Heparin Dep Plt Ab OD 0.198 Hep-Induced Plt Ab Colleen Negative Bld Prod Order Comment 08/18/18 08/18/18 08/18/18 04:15 07:26 08:52 WBC RBC Hgb Hct MCV MCH MCHC RDW Plt Count MPV Prelim Diff (Auto) Neut % (Auto) Lymph % (Auto) [place] % (Auto) Eos % (Auto) Baso % (Auto) Neut # (Auto) Lymph # (Auto) [place] # (Auto) Eos # (Auto) Baso # (Auto) WBC Differential Diff Scan Differential Comment Platelet Estimate Platelet Morphology Ovalocytes [place] Bodies Acanthocytes ([place]) Keratocytes Smear Path Review Sodium 139 Potassium 4.4 Chloride 106 Carbon Dioxide 22.2 Anion Gap 11 BUN 33 H Creatinine 1.22 Estimated GFR 59 L POC Glucose 264 H Random Glucose 232 H Calcium 9.3 Lactate Dehydrogenase Heparin Dep Plt Ab OD Hep-Induced Plt Ab Colleen Bld Prod Order Comment 08/18/18 11:22 WBC RBC Hgb Hct MCV MCH MCHC RDW Plt Count MPV Prelim Diff (Auto) Neut % (Auto) Lymph % (Auto) [place] % (Auto) Eos % (Auto) Baso % (Auto) Neut # (Auto) Lymph # (Auto) [place] # (Auto) Eos # (Auto) Baso # (Auto) WBC Differential Diff Scan Differential Comment Platelet Estimate Platelet Morphology Ovalocytes [place] Bodies Acanthocytes (Spur) Keratocytes Smear Path Review Sodium Potassium Chloride Carbon Dioxide Anion Gap BUN Creatinine Estimated GFR POC Glucose 342 H Random Glucose Calcium Lactate Dehydrogenase Heparin Dep Plt Ab OD Hep-Induced Plt Ab Colleen Bld Prod Order Comment Medications: Active Medications Generic Name Dose Route Start Last Admin Trade Name Freq PRN Reason Stop Dose Admin Atenolol 100 mg 08/18/18 09:00 08/18/18 08:47 Tenormin PO 100 mg DAILY GLENIS Administration Calcitriol 0.25 mcg 08/18/18 09:00 08/18/18 08:47 Rocaltrol PO 0.25 mcg DAILY GLENIS Administration Insulin Detemir 10 unit 08/18/18 09:00 08/18/18 09:40 Levemir Inj SQ 10 unit BID GLENIS Administration Melatonin 5 mg 08/17/18 21:00 08/17/18 23:23 Melatonin PO 5 mg HS GLENIS Administration Methylprednisolone Sodium Succinate 60 mg 08/17/18 14:00 08/18/18 08:47 Solumedrol Inj IV.PUSH 60 mg Q12HR GLENIS Administration Spironolactone 25 mg 08/18/18 09:00 08/18/18 09:40 Aldactone PO 25 mg DAILY GLENIS Administration Objective Remarks: GENERAL: Well-nourished, well-developed elderly male patient, in no acute distress. SKIN: Warm and dry. Ecchymosis to right chest wall, under left eye. HEAD: Normocephalic. EYES: No scleral icterus. No injection or drainage. NECK: Supple, trachea midline. CARDIOVASCULAR: Regular rate and rhythm without murmurs. RESPIRATORY: Breath sounds equal bilaterally. No accessory muscle use. GASTROINTESTINAL: Abdomen soft, non-tender, nondistended. EXTREMITIES: No cyanosis, or edema. MUSCULOSKELETAL: Adequate muscle tone. NEUROLOGICAL: No obvious focal deficit. Awake, alert, and oriented x3. PSYCHIATRIC: Appropriate mood and affect; insight and judgment normal. Assessment/Plan - Plan This is a pleasant 72-year-old gentleman, with a history of idiopathic thrombocytopenic purpura, currently hospitalized for symptomatic thrombocytopenia. Patient had a recent hospitalization for heart block, received pacemaker placement and also placement of a drug-eluting stent to the LAD. Patient was discharged home on Plavix and aspirin. Recommendations: 1. Idiopathic thrombocytopenic purpura, platelet count 5000, subjectively denies bleeding. No bleeding noted on exam. Status post 1 unit platelets today , continues on steroids. Patient receiving IVIG today. 2. Repeat CBC in the a.m. 3. HIT assay pending. 4. Continue to monitor for bleeding. - Attending Statement The exam, history, and the medical decision-making described in the above note were completed with the assistance of the mid-level provider. I reviewed and agree with the findings presented. I attest that I had a [id number] encounter with the patient on the same day, and personally performed and documented my assessment and findings in the medical record. No more bleeding. Platelet down to 5k. Transfuse platelet 1 U today. Will give IVIG. Continue steroid. Consider giving him N-plate if no improvement. Discussed with and .
[2018-08-18] MEDS: Melatonin 5 MG Tablet PO SCH (20:45)
--- NOTE | 2018-08-19 08:02 | P.PNONC ---
Subjective Interval history: Patient tolerated IVIG very well. He denies any chest pain or shortness of breath. He denies any more bleeding from the mouth. He has no hematuria or GI bleeding. CBC is pending this morning. Objective Vital Signs/Intake & Output: Vital Signs 08/18/18 08:00 08/18/18 08:44 08/18/18 11:34 Temperature 97.3 F L 97.8 F 97.7 F Pulse Rate 70 66 61 Respiratory Rate 18 14 16 Blood Pressure 149/65 H 154/70 H 154/70 H Pulse Oximetry 97 97 08/18/18 11:49 08/18/18 12:35 08/18/18 14:03 Temperature 97.8 F 98.1 F 97.8 F Pulse Rate 62 64 65 Respiratory Rate Blood Pressure 156/72 H 150/79 H 146/70 H Pulse Oximetry 93 L 99 95 08/18/18 14:26 08/18/18 20:00 08/18/18 20:07 Temperature 97.6 F Pulse Rate 60 67 65 Respiratory Rate 18 Blood Pressure 135/99 H Pulse Oximetry 98 08/18/18 23:48 08/19/18 00:00 08/19/18 04:00 Temperature 97.8 F 97.3 F L Pulse Rate 60 68 70 Respiratory Rate 18 18 Blood Pressure 148/71 H 116/65 Pulse Oximetry 98 98 08/19/18 07:55 Temperature 97.7 F Pulse Rate 78 Respiratory Rate 18 Blood Pressure 119/56 L Pulse Oximetry 99 Intake & Output 08/18/18 08/19/18 08/19/18 18:59 06:59 18:59 Intake Total 1010 / 1010 430 / 430 Output Total 3 / 3 Balance 1010 / 1010 427 / 427 Weight 68.9 kg Intake: IV 650 / 650 Oral 360 / 360 430 / 430 Intake (Blood Product) Amt 0 / 0 Plt Pheresis B Leukoreduced 0 / 0 Unit [id number] Output: Urine 3 / 3 Other: # Voids 2 2 Date of Last Bowel Movement 08/18/18 # Bowel Movements 1 Result Diagrams: 08/18/18 04:15 08/18/18 04:15 Laboratory Results: Laboratory Results - last 24 hr 08/17/18 08/18/18 08/18/18 20:05 04:15 07:26 WBC Differential . Diff Scan Auto diff confirmed Platelet Estimate Rare L Platelet Morphology Enlarged H [place] Bodies Present H Acanthocytes (Spur) Occ H Keratocytes Occ H POC Glucose Heparin Dep Plt Ab OD 0.198 Hep-Induced Plt Ab Colleen Negative Bld Prod Order Comment 08/18/18 08/18/18 08/18/18 08:52 11:22 16:16 WBC Differential Diff Scan Platelet Estimate Platelet Morphology [place] Bodies Acanthocytes (Spur) Keratocytes POC Glucose 264 H 342 H 298 H Heparin Dep Plt Ab OD Hep-Induced Plt Ab Colleen Bld Prod Order Comment 08/18/18 08/19/18 20:35 07:37 WBC Differential Diff Scan Platelet Estimate Platelet Morphology [place] Bodies Acanthocytes (Spur) Keratocytes POC Glucose 161 H 109 Heparin Dep Plt Ab OD Hep-Induced Plt Ab Colleen Bld Prod Order Comment Medications: Active Medications Generic Name Dose Route Start Last Admin Trade Name Freq PRN Reason Stop Dose Admin Atenolol 100 mg 08/18/18 09:00 08/18/18 08:47 Tenormin PO 100 mg DAILY GLENIS Administration Calcitriol 0.25 mcg 08/18/18 09:00 08/18/18 08:47 Rocaltrol PO 0.25 mcg DAILY GLENIS Administration Insulin Aspart 0 unit 08/18/18 17:00 08/18/18 20:44 Novolog Insulin Correctional Sugar Inj SQ 5 unit ACHS GLENIS Administration Protocol Insulin Detemir 10 unit 08/18/18 09:00 08/18/18 20:44 Levemir Inj SQ 10 unit BID GLENIS Administration Melatonin 5 mg 08/17/18 21:00 08/18/18 20:45 Melatonin PO 5 mg HS GLENIS Administration Methylprednisolone Sodium Succinate 60 mg 08/17/18 14:00 08/18/18 20:44 Solumedrol Inj IV.PUSH 60 mg Q12HR GLENIS Administration Spironolactone 25 mg 08/18/18 09:00 08/18/18 09:40 Aldactone PO 25 mg DAILY GLENIS Administration Objective Remarks: GENERAL: Well-nourished, well-developed patient. SKIN: Warm and dry. Blood blister in the mouth resolving. No active bleeding noted. Mild petechia in the lower extremities. HEAD: Normocephalic. EYES: No scleral icterus. No injection or drainage. NECK: Supple, trachea midline. No JVD or lymphadenopathy. LYMPHATIC: No adenopathy. CARDIOVASCULAR: Regular rate and rhythm without murmurs. RESPIRATORY: Breath sounds equal bilaterally. No accessory muscle use. GASTROINTESTINAL: Abdomen soft, non-tender, nondistended. EXTREMITIES: No cyanosis, or edema. MUSCULOSKELETAL: Adequate muscle tone. NEUROLOGICAL: No obvious focal deficit. Awake, alert, and oriented x3. PSYCHIATRIC: Appropriate mood and affect; insight and judgment normal. Assessment/Plan (1) CAD (coronary artery disease) Code(s): I25.10 - Atherosclerotic heart disease of [place] coronary artery without angina pectoris Status: Chronic (2) Thrombocytopenia Code(s): D69.6 - Thrombocytopenia, unspecified Status: Acute - Plan This is a pleasant 72-year-old gentleman, with a history of idiopathic thrombocytopenic purpura, currently hospitalized for symptomatic thrombocytopenia. Patient had a recent hospitalization for heart block, received pacemaker placement and also placement of a drug-eluting stent to the LAD. Patient was discharged home on Plavix and aspirin. Recommendations: 1. Idiopathic thrombocytopenic purpura, platelet count 5000 on presentation. H IT antibody negative. He received 1 unit of platelet August 17 and another unit August 18. He received IVIG first dose on August 18. The bleeding has stopped. The blood blisters in his mouth are resolving. CBC still pending. We will give him another dose of IVIG. Continue Solu-Medrol. If he has no response will consider starting him on N-plate. 2. Daily CBC. 3. Continue to monitor for bleeding.
[2018-08-19 09:23] LABS: Baso % (Auto) 0.1 % (0.0-2.0); Hematocrit 29.1 % (39.0-51.0); Hemoglobin 9.7 gm/dL (13.0-17.0); Lymph # (Auto) 2.8 th/mm3 (1.0-4.8); Lymph % (Auto) 13.2 % (9.0-44.0); Mean Corpuscular HGB Conc 33.5 % (32.0-36.0); Mean Corpuscular Hemoglobin 30.7 pg (27.0-34.0); Mean Corpuscular Volume 91.8 fL (80.0-100.0); Mean Platelet Volume 12.7 fL (7.0-11.0); Mono % (Auto) 4.7 % (0.0-8.0); Neut # (Auto) 17.2 th/mm3 (1.8-7.7); Red Blood Count 3.17 mil/mm3 (4.50-5.90); Red Cell Distribution Width 15.7 % (11.6-17.2)
[2018-08-19 09:27] LABS: Platelet Count 5 th/mm3 (150-450)
[2018-08-19] MEDS: Spironolactone 25 MG Tablet PO SCH (09:40)
[2018-08-19] MEDS: Calcitriol 0.25 MCG Capsule PO SCH (09:40)
[2018-08-19] MEDS: Insulin NovoLOG Aspart Correctional Sugar Inj SQ SCH ×4 (09:40→21:20)
[2018-08-19] MEDS: Atenolol 100 MG Tablet PO SCH (09:42)
[2018-08-19] MEDS: MethylPREDNISolone Sod Succinate Inj 125 MG/2 ML Vial IV.PUSH SCH ×2 (09:43→21:17)
[2018-08-19] MEDS: Insulin Detemir Inj 1,000 UNIT/10 ML Vial SQ SCH ×2 (09:43→21:20)
[2018-08-19 09:52] LABS: Calcium 8.6 mg/dL (8.5-10.1); Carbon Dioxide 23.9 meq/L (21.0-32.0); Potassium 3.9 meq/L (3.5-5.1)
[2018-08-19 10:08] LABS: Howell-Jolly Bodies Present; Platelet Estimate Rare (Normal)
[2018-08-19] MEDS ORDERED: IVIG IV.SIG ONE (10:49)
--- NOTE | 2018-08-19 11:27 | P.PNIM ---
Subjective Interval history: asking for more solid food no bleeding overnight. Physical Exam Vital signs: Last Vital Signs Temp 98.1 F 08/19/18 10:50 Pulse 60 08/19/18 10:50 Resp 18 08/19/18 07:55 BP 149/68 H 08/19/18 10:50 Pulse Ox 100 08/19/18 10:50 Narrative: oral mucosa with blood blisters heart reg lung cta abd s/nt ext no edema lower ext petechiae and pedal ecchymosis. improved Results Labs CBC & Chem 7: 08/19/18 08:21 08/19/18 08:21 Assessment and Plan Assessment (1) CAD (coronary artery disease): Code(s): I25.10 - Atherosclerotic heart disease of [place] coronary artery without angina pectoris Status: Chronic (2) Thrombocytopenia: Code(s): D69.6 - Thrombocytopenia, unspecified Status: Acute Plan Acute thrombocytopenia - Pt is a pleasant 72 y/o WM with prior aortic valve pathology s/p AVR in 2010, hx of diastolic heart failure, CKD, stage III, HTN, CAD, DM and remote hx of ITP. - Pt had a recent complicated hospitalization, details below. Pt had been doing well following that hospitalization. This morning he woke up and noted blood on his pillow. He states that he noted some large bloody blistering on his lips and buccal mucosa. This prompted him to come to the ED for further evaluation. He noted that he began having petechia on his calves and ecchymosis on his feet bilaterally. 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 - Labs at admission noted platelet count of 6,000 which is a significant change from the labs on previous admissions. 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 ldh nml. Hit AB negative s/p 1 unit plt 08/17, 1 unit on 08/[address] Plascencia and Tyrell cont solumedrol. IVIG started on 08/18 give another unit plt's today when we get to above 30k on the plts will rechallenge with dual anti plt therapy to protect the wilbur. added basal insulin with ssi for steroid hyperglycemia. full liquids Complete heart block s/p PPM CAD/recent NSTEMI s/p WILBUR on 07/13/18 - Pt recently had a prolonged hospitalization after he was transferred to [facility] from [facility] with complete heart block and junctional escape rhythm in the setting of acute diastolic HF, fever, leukocytosis, and CKD stage 3. There was concern for possible bacterial endocarditis initially in this setting , however transthoracic echocardiogram and transesophageal echocardiogram did not reveal any valvular vegetations. Pt had a Medtronic dual chamber PPM place on 07/07/18. Pt was given diuresis with Aldactone and Lasix and underwent a thoracentesis on 07/11 with removal of 800ml fluid. On 07/12 pt was found to have elevated troponin of 5.11 which trended to 4.24 and 3.24. He underwent cardiac catheterization on 07/13/[address] Elmore s/p PCI with WILBUR to LAD lesion. Pt was started on ASA and Plavix for the WILBUR. - Consult Cardiology, case discussed with Dr. Elmore - Pts Plavix and ASA have to be held at this time. CHF with preserved LV function - Currently compensated - Pt was taken off Lasix, to be used as needed for any LE edema - He was continued on Aldactone - Cont. BB Diabetes mellitus - NovoLog SSI - Accu checks add levemir. pt has steroid hyperglycemia CKD, stage 3 - labs are stable Progress Note: Quality VTE Deep Vein Thrombosis/Pulmonary Embolism Present on Admission: No _ (1) CAD (coronary artery disease) Qualifiers: Coronary Disease-Associated Artery/Lesion type: [place] vs. transplanted heart: Associated angina:
[2018-08-19] MEDS ORDERED: Acetaminophen 325 MG Tablet PO ONE (12:00)
[2018-08-19] MEDS ORDERED: Sodium Chlor 0.9% Inj 500 ML IV.SIG ONE (12:00)
[2018-08-19] MEDS ORDERED: IVIG IMMUNE GLOBULIN IV.SIG ONE (13:00)
[2018-08-19] MEDS: Melatonin 5 MG Tablet PO SCH (21:17)
[2018-08-20 08:21] LABS: Baso % (Auto) 0.1 % (0.0-2.0); Hematocrit 29.7 % (39.0-51.0); Hemoglobin 9.8 gm/dL (13.0-17.0); Lymph # (Auto) 2.2 th/mm3 (1.0-4.8); Lymph % (Auto) 17.4 % (9.0-44.0); Mean Corpuscular HGB Conc 33.1 % (32.0-36.0); Mean Corpuscular Volume 93.8 fL (80.0-100.0); Mean Platelet Volume 10.5 fL (7.0-11.0); Mono # (Auto) 0.6 th/mm3 (0.0-0.9); Mono % (Auto) 4.4 % (0.0-8.0); Neut % (Auto) 78.1 % (16.0-70.0); Red Blood Count 3.17 mil/mm3 (4.50-5.90); Red Cell Distribution Width 15.8 % (11.6-17.2); White Blood Count 12.8 th/mm3 (4.0-11.0)
[2018-08-20] MEDS: Insulin NovoLOG Aspart Correctional Sugar Inj SQ SCH ×4 (08:50→20:48)
[2018-08-20 09:04] LABS: Platelet Count 14 th/mm3 (150-450)
[2018-08-20] MEDS: Insulin Detemir Inj 1,000 UNIT/10 ML Vial SQ SCH ×2 (09:28→20:48)
[2018-08-20] MEDS: MethylPREDNISolone Sod Succinate Inj 125 MG/2 ML Vial IV.PUSH SCH ×2 (09:29→20:48)
[2018-08-20] MEDS: Calcitriol 0.25 MCG Capsule PO SCH (09:30)
[2018-08-20] MEDS: Spironolactone 25 MG Tablet PO SCH (09:30)
[2018-08-20] MEDS: Atenolol 100 MG Tablet PO SCH (09:30)
--- NOTE | 2018-08-20 09:56 | P.PNIM ---
Subjective Interval history: pt eager for some soft food. Physical Exam Vital signs: Last Vital Signs Temp 97.4 F L 08/20/18 08:00 Pulse 64 08/20/18 08:00 Resp 18 08/20/18 08:00 BP 157/78 H 08/20/18 08:00 Pulse Ox 98 08/20/18 08:00 Narrative: oral mucosa with blood blisters heart reg lung cta abd s/nt ext no edema lower ext petechiae and pedal ecchymosis. improved Results Labs CBC & Chem 7: 08/20/18 06:46 08/19/18 17:15 Assessment and Plan Assessment (1) CAD (coronary artery disease): Code(s): I25.10 - Atherosclerotic heart disease of [place] coronary artery without angina pectoris Status: Chronic (2) Thrombocytopenia: Code(s): D69.6 - Thrombocytopenia, unspecified Status: Acute Plan Acute thrombocytopenia - Pt is a pleasant 72 y/o WM with prior aortic valve pathology s/p AVR in 2010, hx of diastolic heart failure, CKD, stage III, HTN, CAD, DM and remote hx of ITP. - Pt had a recent complicated hospitalization, details below. Pt had been doing well following that hospitalization. This morning he woke up and noted blood on his pillow. He states that he noted some large bloody blistering on his lips and buccal mucosa. This prompted him to come to the ED for further evaluation. He noted that he began having petechia on his calves and ecchymosis on his feet bilaterally. 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 - Labs at admission noted platelet count of 6,000 which is a significant change from the labs on previous admissions. 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 ldh nml. Hit AB negative s/p 1 unit plt 08/17, 1 unit on 08/18, 1 unit 08/[address] Plascencia and Tyrell cont solumedrol. IVIG started on 08/18 and 08/19 when we get to above 30k on the plts will rechallenge with dual anti plt therapy to protect the wilbur. added basal insulin with ssi for steroid hyperglycemia. advance to soft diet plt now 14. recheck later today. defer plt transfusion to hematology. Complete heart block s/p PPM CAD/recent NSTEMI s/p WILBUR on 07/13/18 - Pt recently had a prolonged hospitalization after he was transferred to [facility] from [facility] with complete heart block and junctional escape rhythm in the setting of acute diastolic HF, fever, leukocytosis, and CKD stage 3. There was concern for possible bacterial endocarditis initially in this setting , however transthoracic echocardiogram and transesophageal echocardiogram did not reveal any valvular vegetations. Pt had a Medtronic dual chamber PPM place on 07/07/18. Pt was given diuresis with Aldactone and Lasix and underwent a thoracentesis on 07/11 with removal of 800ml fluid. On 07/12 pt was found to have elevated troponin of 5.11 which trended to 4.24 and 3.24. He underwent cardiac catheterization on 07/13/[address] Elmore s/p PCI with WILBUR to LAD lesion. Pt was started on ASA and Plavix for the WILBUR. - Consult Cardiology, case discussed with Dr. Elmore - Pts Plavix and ASA have to be held at this time. CHF with preserved LV function - Currently compensated - Pt was taken off Lasix, to be used as needed for any LE edema - He was continued on Aldactone - Cont. BB Diabetes mellitus - NovoLog SSI - Accu checks add levemir. pt has steroid hyperglycemia CKD, stage 3 - labs are stable Progress Note: Quality VTE Deep Vein Thrombosis/Pulmonary Embolism Present on Admission: No _ (1) CAD (coronary artery disease) Qualifiers: Coronary Disease-Associated Artery/Lesion type: [place] vs. transplanted heart: Associated angina:
[2018-08-20 11:05] LABS: Howell-Jolly Bodies Present
--- NOTE | 2018-08-20 15:53 | P.PNONC ---
Subjective Interval history: Afebrile Denies bleeding Reports the blood blister that was in his mouth is much improved No acute complaints Objective Vital Signs/Intake & Output: Vital Signs 08/19/18 20:00 08/19/18 20:01 08/19/18 23:54 Temperature 97.2 F L Pulse Rate 76 64 59 L Respiratory Rate 18 Blood Pressure 139/65 Pulse Oximetry 98 08/20/18 00:00 08/20/18 03:54 08/20/18 04:00 Temperature 97.2 F L 97.4 F L Pulse Rate 69 77 64 Respiratory Rate 18 18 Blood Pressure 148/72 H 144/70 H Pulse Oximetry 99 98 08/20/18 08:00 08/20/18 08:40 08/20/18 12:00 Temperature 97.4 F L 98.1 F Pulse Rate 64 62 Respiratory Rate 18 18 Blood Pressure 157/78 H 168/86 H Pulse Oximetry 98 98 97 Intake & Output 08/19/18 08/20/18 08/20/18 18:59 06:59 18:59 Intake Total 1286 / 1286 992.5 / 992.5 240 / 240 Balance 1286 / 1286 992.5 / 992.5 240 / 240 Weight 154 lb 15.759 oz Intake: IV 500 / 500 992.5 / 992.5 Privigen Inj 70 GM In Bag/ 700 / 700 Syringe 1 EACH @ Per Protocol IV.SIG ONCE ONE Rx#:[id number] NS Inj 500 ML @ 500 mls/hr IV. 500 / 500 SIG ONCE ONE Rx#:[id number] D5W Inj 500 ML @ 30 mls/hr 292.5 / 292.5 OTHER ONCE ONE Rx#:[id number] Oral 600 / 600 240 / 240 Intake (Blood Product) Amt 186 / 186 Plt Pheresis C Leukoreduced 186 / 186 Unit [id number] Other: # Voids 3 Date of Last Bowel Movement 08/18/18 08/19/18 08/19/18 Result Diagrams: 08/20/18 06:46 08/19/18 17:15 Laboratory Results: Laboratory Results - last 24 hr 08/17/18 08/19/18 08/19/18 09:30 16:32 16:35 WBC RBC Hgb Hct MCV MCH MCHC RDW Plt Count MPV Prelim Diff (Auto) Neut % (Auto) Lymph % (Auto) [place] % (Auto) Eos % (Auto) Baso % (Auto) Neut # (Auto) Lymph # (Auto) [place] # (Auto) Eos # (Auto) Baso # (Auto) WBC Differential Diff Scan Differential Comment Platelet Estimate Platelet Morphology [place] Bodies POC Glucose 462 H* 453 H* Random Glucose MTS Gel Crossmatch See Detail 08/19/18 08/19/18 08/19/18 17:15 19:03 21:19 WBC RBC Hgb Hct MCV MCH MCHC RDW Plt Count MPV Prelim Diff (Auto) Neut % (Auto) Lymph % (Auto) [place] % (Auto) Eos % (Auto) Baso % (Auto) Neut # (Auto) Lymph # (Auto) [place] # (Auto) Eos # (Auto) Baso # (Auto) WBC Differential Diff Scan Differential Comment Platelet Estimate Platelet Morphology [place] Bodies POC Glucose 409 H 310 H Random Glucose 404 H D MTS Gel Crossmatch 08/20/18 08/20/18 08/20/18 06:46 08:44 11:50 WBC 12.8 H RBC 3.17 L Hgb 9.8 L Hct 29.7 L MCV 93.8 MCH 31.0 MCHC 33.1 RDW 15.8 Plt Count 14 L* D MPV 10.5 Prelim Diff (Auto) Slide review pending Neut % (Auto) 78.1 H Lymph % (Auto) 17.4 [place] % (Auto) 4.4 Eos % (Auto) 0.0 Baso % (Auto) 0.1 Neut # (Auto) 10.0 H Lymph # (Auto) 2.2 [place] # (Auto) 0.6 Eos # (Auto) 0.0 Baso # (Auto) 0.0 WBC Differential . Diff Scan Auto diff confirmed Differential Comment . Platelet Estimate Low L Platelet Morphology Enlarged H [place] Bodies Present H POC Glucose 99 143 H Random Glucose MTS Gel Crossmatch Medications: Active Medications Generic Name Dose Route Start Last Admin Trade Name Freq PRN Reason Stop Dose Admin Atenolol 100 mg 08/18/18 09:00 08/20/18 09:30 Tenormin PO 100 mg DAILY GLENIS Administration Calcitriol 0.25 mcg 08/18/18 09:00 08/20/18 09:30 Rocaltrol PO 0.25 mcg DAILY GLENIS Administration Insulin Aspart 0 unit 08/18/18 17:00 08/20/18 13:19 Novolog Insulin Correctional Sugar Inj SQ Not Given ACHS [facility] Protocol Insulin Detemir 15 unit 08/20/18 09:00 08/20/18 09:28 Levemir Inj SQ 15 unit BID GLENIS Administration Melatonin 5 mg 08/17/18 21:00 08/19/18 21:17 Melatonin PO 5 mg HS GLENIS Administration Methylprednisolone Sodium Succinate 60 mg 08/17/18 14:00 08/20/18 09:29 Solumedrol Inj IV.PUSH 60 mg Q12HR GLENIS Administration Spironolactone 25 mg 08/18/18 09:00 08/20/18 09:30 Aldactone PO 25 mg DAILY GLENIS Administration Objective Remarks: GENERAL: Well-nourished, well-developed elderly male patient, in no acute distress. SKIN: Warm and dry. Ecchymosis to right chest wall, under left eye. HEAD: Normocephalic. Resolving blister to right posterior buccal surface EYES: No scleral icterus. No injection or drainage. NECK: Supple, trachea midline. CARDIOVASCULAR: Regular rate and rhythm without murmurs. RESPIRATORY: Breath sounds equal bilaterally. No accessory muscle use. GASTROINTESTINAL: Abdomen soft, non-tender, nondistended. EXTREMITIES: No cyanosis. Petechiae to bilateral lower extremities. MUSCULOSKELETAL: Adequate muscle tone. NEUROLOGICAL: No obvious focal deficit. Awake, alert, and oriented x3. Assessment/Plan (1) CAD (coronary artery disease) Code(s): I25.10 - Atherosclerotic heart disease of [place] coronary artery without angina pectoris Status: Chronic (2) Thrombocytopenia Code(s): D69.6 - Thrombocytopenia, unspecified Status: Acute - Plan This is a pleasant 72-year-old gentleman, with a history of idiopathic thrombocytopenic purpura, currently hospitalized for symptomatic thrombocytopenia. Patient had a recent hospitalization for heart block, received pacemaker placement and also placement of a drug-eluting stent to the LAD. Patient was discharged home on Plavix and aspirin. Recommendations: 1. Idiopathic thrombocytopenic purpura, platelet count 5000 on presentation. The patient is status post 2 doses of IVIG and 2 platelet transfusions over the last few days. His platelet count today is up to 14,000. He is not having any bleeding. 2. Daily CBC. 3. Continue to monitor for bleeding. - Attending Statement The exam, history, and the medical decision-making described in the above note were completed with the assistance of the mid-level provider. I reviewed and agree with the findings presented. I attest that I had a [id number] encounter with the patient on the same day, and personally performed and documented my assessment and findings in the medical record. Patient feeling well. Tolerated the IVIG. Denies any headaches or achiness. Denies any bleeding. No petechia. Platelet count noted to be 13,000. We discussed the risk and benefit of Promacta. We decided to wait until repeat platelet count in the morning. Information on Promacta will be provided.
[2018-08-20] MEDS: Melatonin 5 MG Tablet PO SCH (20:48)
[2018-08-21] MEDS: Insulin Detemir Inj 1,000 UNIT/10 ML Vial SQ SCH ×2 (08:22→20:23)
[2018-08-21] MEDS: Atenolol 100 MG Tablet PO SCH (08:23)
[2018-08-21] MEDS: Spironolactone 25 MG Tablet PO SCH (08:23)
[2018-08-21] MEDS: Calcitriol 0.25 MCG Capsule PO SCH (08:23)
[2018-08-21] MEDS: MethylPREDNISolone Sod Succinate Inj 125 MG/2 ML Vial IV.PUSH SCH (08:23)
[2018-08-21 09:33] LABS: Hematocrit 30.6 % (39.0-51.0); Hemoglobin 10.3 gm/dL (13.0-17.0); Mean Corpuscular HGB Conc 33.6 % (32.0-36.0); Mean Corpuscular Hemoglobin 30.9 pg (27.0-34.0); Mean Corpuscular Volume 91.9 fL (80.0-100.0); Mean Platelet Volume 10.3 fL (7.0-11.0); Red Blood Count 3.33 mil/mm3 (4.50-5.90); Red Cell Distribution Width 15.9 % (11.6-17.2); White Blood Count 15.2 th/mm3 (4.0-11.0)
[2018-08-21 10:00] LABS: Platelet Count 17 th/mm3 (150-450)
[2018-08-21 10:06] LABS: Calcium 8.7 mg/dL (8.5-10.1); Carbon Dioxide 26.3 meq/L (21.0-32.0); Potassium 3.7 meq/L (3.5-5.1)
--- NOTE | 2018-08-21 11:01 | P.PNIM ---
Subjective Interval history: no active bleeding. Physical Exam Vital signs: Last Vital Signs Temp 97.7 F 08/21/18 07:46 Pulse 64 08/21/18 07:46 Resp 18 08/21/18 07:46 BP 152/77 H 08/21/18 07:46 Pulse Ox 98 08/21/18 07:46 Narrative: oral mucosa healing heart reg lung cta abd s/nt ext no edema Results Labs CBC & Chem 7: 08/21/18 08:56 08/21/18 08:56 Assessment and Plan Assessment (1) CAD (coronary artery disease): Code(s): I25.10 - Atherosclerotic heart disease of [place] coronary artery without angina pectoris Status: Chronic (2) Thrombocytopenia: Code(s): D69.6 - Thrombocytopenia, unspecified Status: Acute Plan Acute thrombocytopenia ITP - Pt is a pleasant 72 y/o WM with prior aortic valve pathology s/p AVR in 2010, hx of diastolic heart failure, CKD, stage III, HTN, CAD, DM and remote hx of ITP. - Pt had a recent complicated hospitalization, details below. Pt had been doing well following that hospitalization. This morning he woke up and noted blood on his pillow. He states that he noted some large bloody blistering on his lips and buccal mucosa. This prompted him to come to the ED for further evaluation. He noted that he began having petechia on his calves and ecchymosis on his feet bilaterally. 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 - Labs at admission noted platelet count of 6,000 which is a significant change from the labs on previous admissions. 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 ldh nml. Hit AB negative s/p 1 unit plt 08/17, 1 unit on 08/18, 1 unit 08/[address] Plascencia and Tyrell cont solumedrol. IVIG started on 08/18 and 08/19 when we get to above 30k on the plts will rechallenge with dual anti plt therapy to protect the wilbur. added basal insulin with ssi for steroid hyperglycemia. advance to soft diet Plt's slowly rising last 2 days w/out transfusion. continue to monitor. transfuse prn for bleeding. Complete heart block s/p PPM CAD/recent NSTEMI s/p WILBUR on 07/13/18 - Pt recently had a prolonged hospitalization after he was transferred to [facility] from [facility] with complete heart block and junctional escape rhythm in the setting of acute diastolic HF, fever, leukocytosis, and CKD stage 3. There was concern for possible bacterial endocarditis initially in this setting , however transthoracic echocardiogram and transesophageal echocardiogram did not reveal any valvular vegetations. Pt had a Medtronic dual chamber PPM place on 07/07/18. Pt was given diuresis with Aldactone and Lasix and underwent a thoracentesis on 07/11 with removal of 800ml fluid. On 07/12 pt was found to have elevated troponin of 5.11 which trended to 4.24 and 3.24. He underwent cardiac catheterization on 07/13/[address] Elmore s/p PCI with WILBUR to LAD lesion. Pt was started on ASA and Plavix for the WILBUR. - Consult Cardiology, case discussed with Dr. Elmore - Pts Plavix and ASA have to be held at this time. CHF with preserved LV function - Currently compensated - Pt was taken off Lasix, to be used as needed for any LE edema - He was continued on Aldactone - Cont. BB Diabetes mellitus - NovoLog SSI - Accu checks add levemir. pt has steroid hyperglycemia CKD, stage 3 - labs are stable Progress Note: Quality VTE Deep Vein Thrombosis/Pulmonary Embolism Present on Admission: No _ (1) CAD (coronary artery disease) Qualifiers: Coronary Disease-Associated Artery/Lesion type: [place] vs. transplanted heart: Associated angina:
--- NOTE | 2018-08-21 11:39 | P.PNONC ---
Subjective Interval history: No chest pain or shortness of breath. No bleeding. Tolerated IVIG and steroids well. Please that platelets are 17,000. Objective Vital Signs/Intake & Output: Vital Signs 08/20/18 14:46 08/20/18 16:00 08/20/18 16:15 Temperature 98.1 F Pulse Rate 59 L 64 Respiratory Rate 18 Blood Pressure 167/79 H Pulse Oximetry 98 08/20/18 18:46 08/20/18 20:00 08/20/18 22:00 Temperature 97.7 F Pulse Rate 59 L 60 60 Respiratory Rate 18 Blood Pressure 186/85 H Pulse Oximetry 97 08/20/18 23:59 08/21/18 00:00 08/21/18 04:00 Temperature 97.3 F L 97.3 F L Pulse Rate 59 L 61 67 Respiratory Rate 18 18 Blood Pressure 166/81 H 149/72 H Pulse Oximetry 99 97 08/21/18 04:46 08/21/18 07:46 Temperature 97.7 F Pulse Rate 59 L 64 Respiratory Rate 18 Blood Pressure 152/77 H Pulse Oximetry 98 Intake & Output 08/20/18 08/21/18 08/21/18 19:59 06:59 18:59 Intake Total Balance Intake: Oral Other: # Voids Date of Last Bowel Movement Result Diagrams: 08/21/18 08:56 08/21/18 08:56 Laboratory Results: Laboratory Results - last 24 hr 08/20/18 08/20/18 08/21/18 17:37 20:40 07:39 WBC RBC Hgb Hct MCV MCH MCHC RDW Plt Count MPV Sodium Potassium Chloride Carbon Dioxide Anion Gap BUN Creatinine Estimated GFR POC Glucose 267 H 290 H 95 Random Glucose Calcium 08/21/18 08/21/18 08:56 08:56 WBC 15.2 H RBC 3.33 L Hgb 10.3 L Hct 30.6 L MCV 91.9 MCH 30.9 MCHC 33.6 RDW 15.9 Plt Count 17 L* MPV 10.3 Sodium 140 Potassium 3.7 Chloride 107 Carbon Dioxide 26.3 Anion Gap 7 BUN 29 H Creatinine 1.08 Estimated GFR 68 L POC Glucose Random Glucose 82 D Calcium 8.7 Medications: Active Medications Generic Name Dose Route Start Last Admin Trade Name Freq PRN Reason Stop Dose Admin Atenolol 100 mg 08/18/18 09:00 08/21/18 08:23 Tenormin PO 100 mg DAILY GLENIS Administration Calcitriol 0.25 mcg 08/18/18 09:00 08/21/18 08:23 Rocaltrol PO 0.25 mcg DAILY GLENIS Administration Insulin Aspart 0 unit 08/18/18 17:00 08/20/18 20:48 Novolog Insulin Correctional Sugar Inj SQ 15 unit ACHS GLENIS Administration Protocol Insulin Detemir 15 unit 08/20/18 09:00 08/21/18 08:22 Levemir Inj SQ 15 unit BID GLNEIS Administration Melatonin 5 mg 08/17/18 21:00 08/20/18 20:48 Melatonin PO 5 mg HS GLENIS Administration Spironolactone 25 mg 08/18/18 09:00 08/21/18 08:23 Aldactone PO 25 mg DAILY GLENIS Administration Objective Remarks: GENERAL: Well-nourished, well-developed elderly male patient, in no acute distress. SKIN: Warm and dry. Ecchymosis to right chest wall, under left eye. Mucosa clear. Blood blisters of the tongue and roof of mouth resolved. HEAD: Normocephalic. Resolving blister to right posterior buccal surface EYES: No scleral icterus. No injection or drainage. NECK: Supple, trachea midline. CARDIOVASCULAR: Regular rate and rhythm without murmurs. RESPIRATORY: Breath sounds equal bilaterally. No accessory muscle use. GASTROINTESTINAL: Abdomen soft, non-tender, nondistended. EXTREMITIES: No cyanosis. Petechiae to bilateral lower extremities. MUSCULOSKELETAL: Adequate muscle tone. NEUROLOGICAL: No obvious focal deficit. Awake, alert, and oriented x3. Assessment/Plan (1) CAD (coronary artery disease) Code(s): I25.10 - Atherosclerotic heart disease of [place] coronary artery without angina pectoris Status: Chronic (2) Thrombocytopenia Code(s): D69.6 - Thrombocytopenia, unspecified Status: Acute - Plan Mr. Lees 72-year-old gentleman, with a history of idiopathic thrombocytopenic purpura, currently hospitalized for symptomatic thrombocytopenia from ITP exacerbation. Patient had a recent hospitalization for heart block, received pacemaker placement and also placement of a drug-eluting stent to the LAD. Patient was discharged home on Plavix and aspirin. 1. Continue monitor platelet count. Treatment for ITP with IVIG and steroids will continue. We discussed Promacta. If his platelet counts continue to recover on steroids will defer Promacta treatment. He should continue on prednisone approximately 1 mg/kg, 30 mg p.o. twice daily. He will need a slow taper and outpatient basis. He will follow-up with Dr. Plascencia. 2. We discussed starting his Plavix once his platelet count gets to 50,000. We will monitor closely for chest pain. He has competing needs of needing antiplatelet therapy for his coronary artery disease and recent stent and to treat his ITP and increase his platelet count to prevent spontaneous bleeding.
[2018-08-21] MEDS: Insulin NovoLOG Aspart Correctional Sugar Inj SQ SCH ×4 (12:34→20:23)
[2018-08-21] MEDS: predniSONE 10 MG Tablet PO SCH ×2 (13:51→20:22)
[2018-08-21] MEDS: Melatonin 5 MG Tablet PO SCH (20:22)
[2018-08-22 05:54] LABS: Hemoglobin 10.2 gm/dL (13.0-17.0); Mean Corpuscular HGB Conc 33.9 % (32.0-36.0); Mean Corpuscular Hemoglobin 30.9 pg (27.0-34.0); Mean Corpuscular Volume 91.2 fL (80.0-100.0); Mean Platelet Volume 11.6 fL (7.0-11.0); Platelet Count 22 th/mm3 (150-450); Red Blood Count 3.29 mil/mm3 (4.50-5.90); Red Cell Distribution Width 15.6 % (11.6-17.2); White Blood Count 14.2 th/mm3 (4.0-11.0)
[2018-08-22] MEDS: predniSONE 10 MG Tablet PO SCH ×2 (08:34→22:32)
[2018-08-22] MEDS: Insulin NovoLOG Aspart Correctional Sugar Inj SQ SCH ×4 (08:34→22:46)
[2018-08-22] MEDS: Spironolactone 25 MG Tablet PO SCH (08:35)
[2018-08-22] MEDS: Atenolol 100 MG Tablet PO SCH (08:35)
[2018-08-22] MEDS: Insulin Detemir Inj 1,000 UNIT/10 ML Vial SQ SCH ×2 (08:35→22:32)
[2018-08-22] MEDS: Calcitriol 0.25 MCG Capsule PO SCH (08:35)
--- NOTE | 2018-08-22 17:12 | P.PNIM ---
Physical Exam Vital signs: Last Vital Signs Temp 97.2 F L 08/22/18 12:00 Pulse 61 08/22/18 12:00 Resp 20 08/22/18 12:00 BP 176/86 H 08/22/18 12:00 Pulse Ox 100 08/22/18 12:00 Narrative: oral mucosa healing heart reg lung cta abd s/nt ext no edema Results Labs CBC & Chem 7: 08/22/18 05:12 08/21/18 08:56 Assessment and Plan Assessment (1) CAD (coronary artery disease): Code(s): I25.10 - Atherosclerotic heart disease of [place] coronary artery without angina pectoris Status: Chronic (2) Thrombocytopenia: Code(s): D69.6 - Thrombocytopenia, unspecified Status: Acute Plan Acute thrombocytopenia ITP - Pt is a pleasant 72 y/o WM with prior aortic valve pathology s/p AVR in 2010, hx of diastolic heart failure, CKD, stage III, HTN, CAD, DM and remote hx of ITP. - Pt had a recent complicated hospitalization, details below. Pt had been doing well following that hospitalization. This morning he woke up and noted blood on his pillow. He states that he noted some large bloody blistering on his lips and buccal mucosa. This prompted him to come to the ED for further evaluation. He noted that he began having petechia on his calves and ecchymosis on his feet bilaterally. 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 - Labs at admission noted platelet count of 6,000 which is a significant change from the labs on previous admissions. 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 ldh nml. Hit AB negative s/p 1 unit plt 08/17, 1 unit on 08/18, 1 unit 08/[address] Plascencia and Tyrell cont solumedrol. IVIG started on 08/18 and 08/19 when we get to above 30k on the plts will rechallenge with dual anti plt therapy to protect the wilbur. added basal insulin with ssi for steroid hyperglycemia. advance to soft diet Plt's slowly rising last 2 days w/out transfusion. continue to monitor. transfuse prn for bleeding. Complete heart block s/p PPM CAD/recent NSTEMI s/p WILBUR on 07/13/18 - Pt recently had a prolonged hospitalization after he was transferred to [facility] from [facility] with complete heart block and junctional escape rhythm in the setting of acute diastolic HF, fever, leukocytosis, and CKD stage 3. There was concern for possible bacterial endocarditis initially in this setting , however transthoracic echocardiogram and transesophageal echocardiogram did not reveal any valvular vegetations. Pt had a Medtronic dual chamber PPM place on 07/07/18. Pt was given diuresis with Aldactone and Lasix and underwent a thoracentesis on 07/11 with removal of 800ml fluid. On 07/12 pt was found to have elevated troponin of 5.11 which trended to 4.24 and 3.24. He underwent cardiac catheterization on 07/13/[address] Elmore s/p PCI with WILBUR to LAD lesion. Pt was started on ASA and Plavix for the WILBUR. - Consult Cardiology, case discussed with Dr. Elmore - Pts Plavix and ASA have to be held at this time. CHF with preserved LV function - Currently compensated - Pt was taken off Lasix, to be used as needed for any LE edema - He was continued on Aldactone - Cont. BB Diabetes mellitus - NovoLog SSI - Accu checks add levemir. pt has steroid hyperglycemia CKD, stage 3 - labs are stable Progress Note: Quality VTE Deep Vein Thrombosis/Pulmonary Embolism Present on Admission: No _ (1) CAD (coronary artery disease) Qualifiers: Coronary Disease-Associated Artery/Lesion type: [place] vs. transplanted heart: Associated angina:
--- NOTE | 2018-08-22 17:13 | P.PNIM ---
Subjective Interval history: No new clinical complaints. Physical Exam Vital signs: Last Vital Signs Temp 97.2 F L 08/22/18 12:00 Pulse 61 08/22/18 12:00 Resp 20 08/22/18 12:00 BP 176/86 H 08/22/18 12:00 Pulse Ox 100 08/22/18 12:00 Intake & Output 08/20/18 08/21/18 08/22/18 08/23/18 07:59 06:59 06:59 06:59 Intake Total 1200 / 1200 Balance 1200 / 1200 Weight Narrative: GENERAL: AOx 3, very pleasant and well appearing. SKIN: Warm and dry. HEAD: Atraumatic. Normocephalic. EYES: Pupils equal and round. No scleral icterus. No injection or drainage. ENT: No nasal bleeding or discharge. some crusted blood on lips. NECK: Trachea midline. No JVD. CARDIOVASCULAR: Regular rate and rhythm. PPM placed in left chest wall. RESPIRATORY: No accessory muscle use. Clear to auscultation. Breath sounds equal bilaterally. GASTROINTESTINAL: Abdomen soft, non-tender, nondistended. MUSCULOSKELETAL: Extremities without clubbing, cyanosis, or edema. No obvious deformities. NEUROLOGICAL: Awake and alert. No obvious cranial nerve deficits. Normal speech. PSYCHIATRIC: Appropriate mood and affect; insight and judgment normal. Results Labs CBC & Chem 7: 08/24/18 05:27 08/21/18 08:56 Assessment and Plan (1) CAD (coronary artery disease): Code(s): I25.10 - Atherosclerotic heart disease of [place] coronary artery without angina pectoris Status: Chronic (2) Thrombocytopenia: Code(s): D69.6 - Thrombocytopenia, unspecified Status: Acute Plan Acute thrombocytopenia ITP - Pt is a pleasant 72 y/o WM with prior aortic valve pathology s/p AVR in 2010, hx of diastolic heart failure, CKD, stage III, HTN, CAD, DM and remote hx of ITP. - Pt had a recent complicated hospitalization, details below. Pt had been doing well following that hospitalization. This morning he woke up and noted blood on his pillow. He states that he noted some large bloody blistering on his lips and buccal mucosa. This prompted him to come to the ED for further evaluation. He noted that he began having petechia on his calves and ecchymosis on his feet bilaterally. 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 - Labs at admission noted platelet count of 6,000 which is a significant change from the labs on previous admissions. 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 ldh nml. Hit AB negative s/p 1 unit plt 08/17, 1 unit on 08/18, 1 unit 08/[address] Plascencia and Tyrell cont solumedrol. IVIG started on 08/18 and 08/19 when we get to above 30k on the plts will rechallenge with dual anti plt therapy to protect the wilbur. added basal insulin with ssi for steroid hyperglycemia. advance to soft diet 08/22/18 - continue PO steroids - repeat CBC in AM - resume plavix once platelet count above 50K Plt's slowly rising last 2 days w/out transfusion. continue to monitor. transfuse prn for bleeding. Complete heart block s/p PPM CAD/recent NSTEMI s/p WILBUR on 07/13/18 - Pt recently had a prolonged hospitalization after he was transferred to [facility] from [facility] with complete heart block and junctional escape rhythm in the setting of acute diastolic HF, fever, leukocytosis, and CKD stage 3. There was concern for possible bacterial endocarditis initially in this setting , however transthoracic echocardiogram and transesophageal echocardiogram did not reveal any valvular vegetations. Pt had a Medtronic dual chamber PPM place on 07/07/18. Pt was given diuresis with Aldactone and Lasix and underwent a thoracentesis on 07/11 with removal of 800ml fluid. On 07/12 pt was found to have elevated troponin of 5.11 which trended to 4.24 and 3.24. He underwent cardiac catheterization on 07/13/[address] Elmore s/p PCI with WILBUR to LAD lesion. Pt was started on ASA and Plavix for the WILBUR. - Consult Cardiology, case discussed with Dr. Elmore - Pts Plavix and ASA have to be held at this time. CHF with preserved LV function - Currently compensated - Pt was taken off Lasix, to be used as needed for any LE edema - He was continued on Aldactone - Cont. BB Diabetes mellitus - NovoLog SSI - Accu checks add levemir. pt has steroid hyperglycemia CKD, stage 3 - labs are stable Progress Note: Quality VTE Deep Vein Thrombosis/Pulmonary Embolism Present on Admission: No _ (1) CAD (coronary artery disease) Qualifiers: Associated angina: Coronary Disease-Associated Artery/Lesion type: [place] vs. transplanted heart:
--- NOTE | 2018-08-22 17:26 | P.PNONC ---
Subjective Interval history: Patient sitting in chair, reports petechiae on lower extremities is fading, denies any bleeding. Objective Vital Signs/Intake & Output: Vital Signs 08/21/18 20:00 08/21/18 20:18 08/22/18 00:00 Temperature 97.9 F 97.6 F Pulse Rate 64 61 69 Respiratory Rate 18 16 Blood Pressure 133/65 160/81 H Pulse Oximetry 97 95 08/22/18 01:00 08/22/18 04:00 08/22/18 05:00 Temperature 97.4 F L Pulse Rate 60 60 59 L Respiratory Rate 20 Blood Pressure 171/89 H Pulse Oximetry 99 08/22/18 05:47 08/22/18 08:00 08/22/18 12:00 Temperature 97.4 F L 97.2 F L Pulse Rate 63 61 Respiratory Rate 18 20 Blood Pressure 160/78 H 177/91 H 176/86 H Pulse Oximetry 99 100 Intake & Output 08/21/18 08/22/18 08/22/18 18:59 06:59 18:59 Intake Total 600 / 600 600 / 600 Balance 600 / 600 600 / 600 Intake: Oral 600 / 600 600 / 600 Other: # Voids 6 Date of Last Bowel Movement 08/19/18 08/19/18 08/19/18 Result Diagrams: 08/22/18 05:12 08/21/18 08:56 Laboratory Results: Laboratory Results - last 24 hr 08/21/18 08/22/18 08/22/18 20:12 05:12 07:26 WBC 14.2 H RBC 3.29 L Hgb 10.2 L Hct 30.0 L MCV 91.2 MCH 30.9 MCHC 33.9 RDW 15.6 Plt Count 22 L MPV 11.6 H POC Glucose 230 H 109 08/22/18 11:40 WBC RBC Hgb Hct MCV MCH MCHC RDW Plt Count MPV POC Glucose 242 H Medications: Active Medications Generic Name Dose Route Start Last Admin Trade Name Freq PRN Reason Stop Dose Admin Atenolol 100 mg 08/18/18 09:00 08/22/18 08:35 Tenormin PO 100 mg DAILY GLENIS Administration Calcitriol 0.25 mcg 08/18/18 09:00 08/22/18 08:35 Rocaltrol PO 0.25 mcg DAILY GLENIS Administration Clonidine HCl 0.2 mg 08/21/18 15:24 08/22/18 12:34 Catapres PO 0.2 mg Q4H PRN Administration sbp > 160 Enalaprilat 1.25 mg 08/21/18 15:24 08/22/18 05:50 Vasotec Inj IV.PUSH 1.25 mg Q6H PRN Administration sbp > 170 Insulin Aspart 0 unit 08/18/18 17:00 08/22/18 13:20 Novolog Insulin Correctional Sugar Inj SQ 10 unit ACHS GLENIS Administration Protocol Insulin Detemir 15 unit 08/20/18 09:00 08/22/18 08:35 Levemir Inj SQ 15 unit BID GLENIS Administration Melatonin 5 mg 08/17/18 21:00 08/21/18 20:22 Melatonin PO 5 mg HS GLENIS Administration Prednisone 30 mg 08/21/18 13:00 08/22/18 08:34 Deltasone PO 30 mg BID GLENIS Administration Spironolactone 25 mg 08/18/18 09:00 08/22/18 08:35 Aldactone PO 25 mg DAILY GLENIS Administration Objective Remarks: GENERAL: Well-nourished, well-developed elderly male patient, in no acute distress. SKIN: Warm and dry. Ecchymosis to right chest wall, under left eye. Fading petechiae to bilateral LE. HEAD: Normocephalic. EYES: No scleral icterus. No injection or drainage. NECK: Supple, trachea midline. CARDIOVASCULAR: Regular rate and rhythm without murmurs. RESPIRATORY: Breath sounds equal bilaterally. No accessory muscle use. GASTROINTESTINAL: Abdomen soft, non-tender, nondistended. EXTREMITIES: No cyanosis, or edema. MUSCULOSKELETAL: Adequate muscle tone. NEUROLOGICAL: No obvious focal deficit. Awake, alert, and oriented x3. PSYCHIATRIC: Appropriate mood and affect; insight and judgment normal. Assessment/Plan (1) CAD (coronary artery disease) Code(s): I25.10 - Atherosclerotic heart disease of [place] coronary artery without angina pectoris Status: Chronic (2) Thrombocytopenia Code(s): D69.6 - Thrombocytopenia, unspecified Status: Acute - Plan Mr. Lees 72-year-old gentleman, with a history of idiopathic thrombocytopenic purpura, currently hospitalized for symptomatic thrombocytopenia from ITP exacerbation. Patient had a recent hospitalization for heart block, received pacemaker placement and also placement of a drug-eluting stent to the LAD. Patient was discharged home on Plavix and aspirin. 1. ITP s/p IVIG and steroids, continues on steroids. He should continue on prednisone approximately 1 mg/kg, 30 mg p.o. twice daily. He will need a slow taper and outpatient basis. Patient will need outpatient follow-up, information sent to new patient referrals. 2. We discussed starting his Plavix once his platelet count gets to 50,000. We will monitor closely for chest pain. He has competing needs of needing antiplatelet therapy for his coronary artery disease and recent stent and to treat his ITP and increase his platelet count to prevent spontaneous bleeding. 3. Repeat CBC in the a.m. - Attending Statement The exam, history, and the medical decision-making described in the above note were completed with the assistance of the mid-level provider. I reviewed and agree with the findings presented. I attest that I had a [id number] encounter with the patient on the same day, and personally performed and documented my assessment and findings in the medical record.Denies any more bleeding. Platelet up to 22K. S/p IVIG x2days. Continue prednisone 30mg BID. Monitor CBC. Consider N-plate if platelet trended lower.
[2018-08-22] MEDS: Melatonin 5 MG Tablet PO SCH (22:32)
[2018-08-23] MEDS ORDERED: Bisacodyl 10 MG Supp RECTAL PRN (00:46)
[2018-08-23] MEDS: Docusate Sodium 100 MG Capsule PO PRN ×3 (01:08→21:18)
[2018-08-23] MEDS: Insulin NovoLOG Aspart Correctional Sugar Inj SQ SCH ×4 (07:40→21:16)
[2018-08-23] MEDS: predniSONE 10 MG Tablet PO SCH ×2 (08:39→21:07)
[2018-08-23] MEDS: Calcitriol 0.25 MCG Capsule PO SCH (08:39)
[2018-08-23] MEDS: Atenolol 100 MG Tablet PO SCH (08:39)
[2018-08-23] MEDS: Insulin Detemir Inj 1,000 UNIT/10 ML Vial SQ SCH ×2 (08:40→21:15)
[2018-08-23] MEDS: Spironolactone 25 MG Tablet PO SCH (08:40)
[2018-08-23 09:12] LABS: Hematocrit 32.8 % (39.0-51.0); Hemoglobin 10.9 gm/dL (13.0-17.0); Mean Corpuscular HGB Conc 33.3 % (32.0-36.0); Mean Corpuscular Hemoglobin 30.9 pg (27.0-34.0); Mean Corpuscular Volume 92.6 fL (80.0-100.0); Mean Platelet Volume 9.9 fL (7.0-11.0); Red Blood Count 3.54 mil/mm3 (4.50-5.90); Red Cell Distribution Width 15.8 % (11.6-17.2); White Blood Count 13.1 th/mm3 (4.0-11.0)
[2018-08-23 09:19] LABS: Platelet Count 19 th/mm3 (150-450)
--- NOTE | 2018-08-23 15:23 | P.PNONC ---
Subjective Interval history: Patient sitting up in chair, in no acute distress. He denies any bleeding. The petechiae on his bilateral lower extremities has almost completely resided. Patient inquires if he is able to be transferred to [place], for his 's convenience. We have discussed this at great length, ultimately it will be up to the attending, however given his current cardiac condition and the need to quickly be placed back on his blood thinners, cardiology and hematology would likely prefer him to stay at this location. Objective Vital Signs/Intake & Output: Vital Signs 08/22/18 16:00 08/22/18 20:00 08/22/18 21:00 Temperature 97.7 F 97.4 F L Pulse Rate 64 63 60 Respiratory Rate 18 18 Blood Pressure 188/89 H 155/73 H Pulse Oximetry 99 97 08/23/18 00:00 08/23/18 01:00 08/23/18 03:20 Temperature 97.5 F L Pulse Rate 58 L 60 Respiratory Rate 18 18 Blood Pressure 178/85 H Pulse Oximetry 99 08/23/18 04:00 08/23/18 05:00 08/23/18 06:03 Temperature 97.6 F Pulse Rate 60 59 L Respiratory Rate 18 Blood Pressure 170/81 H 169/85 H Pulse Oximetry 98 08/23/18 08:00 08/23/18 08:52 08/23/18 12:00 Temperature 97.8 F 97.5 F L Pulse Rate 60 66 62 Respiratory Rate 20 20 Blood Pressure 173/92 H 148/77 H Pulse Oximetry 97 97 Intake & Output 08/22/18 08/23/18 08/23/18 18:59 06:59 18:59 Intake Total 720 / 720 360 / 360 Output Total 1350 / 1350 Balance -630 / -630 360 / 360 Weight 70.3 kg Intake: Oral 720 / 720 360 / 360 Output: Urine 1350 / 1350 Other: # Voids 1 1 Date of Last Bowel Movement 08/19/18 Result Diagrams: 08/23/18 08:35 08/21/18 08:56 Laboratory Results: Laboratory Results - last 24 hr 08/22/18 08/22/18 08/23/18 17:37 22:35 07:34 WBC RBC Hgb Hct MCV MCH MCHC RDW Plt Count MPV POC Glucose 285 H 298 H 89 08/23/18 08/23/18 08:35 11:50 WBC 13.1 H RBC 3.54 L Hgb 10.9 L Hct 32.8 L MCV 92.6 MCH 30.9 MCHC 33.3 RDW 15.8 Plt Count 19 L* MPV 9.9 POC Glucose 195 H Medications: Active Medications Generic Name Dose Route Start Last Admin Trade Name Freq PRN Reason Stop Dose Admin Atenolol 100 mg 08/18/18 09:00 08/23/18 08:39 Tenormin PO 100 mg DAILY GLENIS Administration Calcitriol 0.25 mcg 08/18/18 09:00 08/23/18 08:39 Rocaltrol PO 0.25 mcg DAILY GLENIS Administration Clonidine HCl 0.2 mg 08/21/18 15:24 08/23/18 06:04 Catapres PO 0.2 mg Q4H PRN Administration sbp > 160 Docusate Sodium 100 mg 08/23/18 00:46 08/23/18 08:40 Colace PO 100 mg BID PRN Administration CONSTIPATION Enalaprilat 1.25 mg 08/21/18 15:24 08/23/18 08:40 Vasotec Inj IV.PUSH 1.25 mg Q6H PRN Administration sbp > 170 Insulin Aspart 0 unit 08/18/18 17:00 08/23/18 12:06 Novolog Insulin Correctional Sugar Inj SQ 5 unit ACHS GLENIS Administration Protocol Insulin Detemir 15 unit 08/20/18 09:00 08/23/18 08:40 Levemir Inj SQ 15 unit BID GLENIS Administration Melatonin 5 mg 08/17/18 21:00 08/22/18 22:32 Melatonin PO 5 mg HS GLENIS Administration Prednisone 30 mg 08/21/18 13:00 08/23/18 08:39 Deltasone PO 30 mg BID GLENIS Administration Spironolactone 25 mg 08/18/18 09:00 08/23/18 08:40 Aldactone PO 25 mg DAILY GLENIS Administration Objective Remarks: GENERAL: Well-nourished, well-developed elderly male patient, in no acute distress. SKIN: Warm and dry. Ecchymosis to right chest wall, under left eye. Fading petechiae to bilateral LE. HEAD: Normocephalic. EYES: No scleral icterus. No injection or drainage. NECK: Supple, trachea midline. CARDIOVASCULAR: +S1/S2 without murmurs. RESPIRATORY: Breath sounds equal bilaterally. Nonlabored at rest. GASTROINTESTINAL: Abdomen soft, non-tender, nondistended. EXTREMITIES: No cyanosis, or edema. MUSCULOSKELETAL: Adequate muscle tone. NEUROLOGICAL: No obvious focal deficit. Awake, alert, and oriented x3. PSYCHIATRIC: Appropriate mood and affect; insight and judgment normal. Assessment/Plan (1) CAD (coronary artery disease) Code(s): I25.10 - Atherosclerotic heart disease of [place] coronary artery without angina pectoris Status: Chronic (2) Thrombocytopenia Code(s): D69.6 - Thrombocytopenia, unspecified Status: Acute - Plan Mr. Lees 72-year-old gentleman, with a history of idiopathic thrombocytopenic purpura, currently hospitalized for symptomatic thrombocytopenia from ITP exacerbation. Patient had a recent hospitalization for heart block, received pacemaker placement and also placement of a drug-eluting stent to the LAD. Patient was discharged home on Plavix and aspirin. 1. ITP s/p IVIG and steroids, continues on steroids. He should continue on prednisone approximately 1 mg/kg, 30 mg p.o. twice daily. He will need a slow taper and outpatient basis. 2. Pt has competing needs, antiplatelet therapy for his coronary artery disease and recent stent and to treat his ITP and increase his platelet count to prevent spontaneous bleeding. 3. Platelets decreased to 19,000. May start N-plate. 4. Repeat CBC in the a.m. - Attending Statement The exam, history, and the medical decision-making described in the above note were completed with the assistance of the mid-level provider. I reviewed and agree with the findings presented. I attest that I had a [id number] encounter with the patient on the same day, and personally performed and documented my assessment and findings in the medical record. Patient denies any bleeding. His petechia is resolving. Platelet count however trended down slightly to 19,000. We will start him on Nplate.
--- NOTE | 2018-08-23 17:46 | P.PNIM ---
Subjective Interval history: Pt has NO new clinical complaints. Physical Exam Vital signs: Last Vital Signs Temp 97.7 F 08/23/18 16:00 Pulse 64 08/23/18 16:00 Resp 20 08/23/18 16:00 BP 132/68 08/23/18 16:00 Pulse Ox 100 08/23/18 16:00 Intake & Output 08/21/18 08/22/18 08/23/18 08/24/18 06:59 06:59 06:59 06:59 Intake Total 1200 / 1200 720 / 720 360 / 360 Output Total 1350 / 1350 Balance 1200 / 1200 -630 / -630 360 / 360 Weight 70.3 kg Narrative: GENERAL: AOx 3, very pleasant and well appearing. SKIN: Warm and dry. HEAD: Atraumatic. Normocephalic. EYES: Pupils equal and round. No scleral icterus. No injection or drainage. ENT: No nasal bleeding or discharge. some crusted blood on lips. NECK: Trachea midline. No JVD. CARDIOVASCULAR: Regular rate and rhythm. PPM placed in left chest wall. RESPIRATORY: No accessory muscle use. Clear to auscultation. Breath sounds equal bilaterally. GASTROINTESTINAL: Abdomen soft, non-tender, nondistended. MUSCULOSKELETAL: Extremities without clubbing, cyanosis, or edema. No obvious deformities. NEUROLOGICAL: Awake and alert. No obvious cranial nerve deficits. Normal speech. PSYCHIATRIC: Appropriate mood and affect; insight and judgment normal. Results Labs CBC & Chem 7: 08/24/18 05:27 08/21/18 08:56 Assessment and Plan (1) CAD (coronary artery disease): Code(s): I25.10 - Atherosclerotic heart disease of [place] coronary artery without angina pectoris Status: Chronic (2) Thrombocytopenia: Code(s): D69.6 - Thrombocytopenia, unspecified Status: Acute Plan Acute thrombocytopenia ITP - Pt is a pleasant 72 y/o WM with prior aortic valve pathology s/p AVR in 2010, hx of diastolic heart failure, CKD, stage III, HTN, CAD, DM and remote hx of ITP. - Pt had a recent complicated hospitalization, details below. Pt had been doing well following that hospitalization. This morning he woke up and noted blood on his pillow. He states that he noted some large bloody blistering on his lips and buccal mucosa. This prompted him to come to the ED for further evaluation. He noted that he began having petechia on his calves and ecchymosis on his feet bilaterally. 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 - Labs at admission noted platelet count of 6,000 which is a significant change from the labs on previous admissions. 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 ldh nml. - Hit AB negative - s/p 1 unit plt 08/17, 1 unit on 08/18, 1 unit 08/19 - Case d/w Dr. Plascencia (08/23/18) - Course of IV solumedrol completed - PO prednisone - IVIG started on 08/18 and 08/19 - once platelets above 50k will rechallenge with dual anti plt therapy to protect the [place]. - Nplate per Hematology. Weekly to stimulate platelets. - Repeat CBC in AM CHF with preserved LV function - Currently compensated - Pt was taken off Lasix, to be used as needed for any LE edema - He was continued on Aldactone - Cont. BB Diabetes mellitus - NovoLog SSI - Accu checks add levemir. pt has steroid hyperglycemia CKD, stage 3 - labs are stable Progress Note: Quality VTE Deep Vein Thrombosis/Pulmonary Embolism Present on Admission: No _ (1) CAD (coronary artery disease) Qualifiers: Associated angina: Coronary Disease-Associated Artery/Lesion type: [place] vs. transplanted heart:
[2018-08-23] MEDS ORDERED: ROMIPLOSTIM 250 MCG SQ SCH (18:00)
[2018-08-23] MEDS: Melatonin 5 MG Tablet PO SCH (23:48)
[2018-08-24] MEDS: Insulin NovoLOG Aspart Correctional Sugar Inj SQ SCH ×4 (07:28→22:50)
[2018-08-24 07:33] LABS: Baso % (Auto) 0.1 % (0.0-2.0); Eos % (Auto) 0.1 % (0.0-4.0); Hematocrit 35.8 % (39.0-51.0); Hemoglobin 11.8 gm/dL (13.0-17.0); Lymph # (Auto) 3.6 th/mm3 (1.0-4.8); Lymph % (Auto) 27.1 % (9.0-44.0); Mean Corpuscular HGB Conc 32.8 % (32.0-36.0); Mean Corpuscular Hemoglobin 30.7 pg (27.0-34.0); Mean Corpuscular Volume 93.5 fL (80.0-100.0); Mean Platelet Volume 10.1 fL (7.0-11.0); Mono # (Auto) 0.7 th/mm3 (0.0-0.9); Mono % (Auto) 5.2 % (0.0-8.0); Neut % (Auto) 67.5 % (16.0-70.0); Red Blood Count 3.83 mil/mm3 (4.50-5.90); Red Cell Distribution Width 15.6 % (11.6-17.2); White Blood Count 13.3 th/mm3 (4.0-11.0)
[2018-08-24 08:13] LABS: Platelet Count 14 th/mm3 (150-450)
[2018-08-24] MEDS: Calcitriol 0.25 MCG Capsule PO SCH (08:41)
[2018-08-24] MEDS: predniSONE 10 MG Tablet PO SCH ×2 (08:42→22:48)
[2018-08-24] MEDS: Atenolol 100 MG Tablet PO SCH (08:42)
[2018-08-24] MEDS: Insulin Detemir Inj 1,000 UNIT/10 ML Vial SQ SCH ×2 (08:42→22:56)
[2018-08-24] MEDS: Spironolactone 25 MG Tablet PO SCH (08:42)
[2018-08-24 09:25] LABS: Howell-Jolly Bodies Present
--- NOTE | 2018-08-24 14:56 | P.PNIM ---
Subjective Interval history: No new complaints. Physical Exam Vital signs: Last Vital Signs Temp 97.7 F 08/24/18 12:00 Pulse 63 08/24/18 12:00 Resp 20 08/24/18 12:00 BP 137/64 08/24/18 12:00 Pulse Ox 95 08/24/18 12:00 Narrative: GENERAL: This is a well-nourished, well-developed patient, in no apparent distress. CARDIOVASCULAR: Regular rate and rhythm without murmurs, gallops, or rubs. RESPIRATORY: Clear to auscultation. Breath sounds equal bilaterally. No wheezes , rales, or rhonchi. GASTROINTESTINAL: Abdomen soft, non-tender, nondistended. Normal active bowel sounds MUSCULOSKELETAL: Extremities without clubbing, cyanosis, or edema. NEURO: Alert & Oriented x4 to person, place, time, situation. Moves all ext x4 Results Labs CBC & Chem 7: 08/24/18 05:27 08/21/18 08:56 Assessment and Plan Assessment (1) CAD (coronary artery disease): Code(s): I25.10 - Atherosclerotic heart disease of [place] coronary artery without angina pectoris Status: Chronic (2) Thrombocytopenia: Code(s): D69.6 - Thrombocytopenia, unspecified Status: Acute Plan Acute thrombocytopenia ITP - Pt is a pleasant 72 y/o WM with prior aortic valve pathology s/p AVR in 2010, hx of diastolic heart failure, CKD, stage III, HTN, CAD, DM and remote hx of ITP. - Pt had a recent complicated hospitalization, details below. Pt had been doing well following that hospitalization. This morning he woke up and noted blood on his pillow. He states that he noted some large bloody blistering on his lips and buccal mucosa. This prompted him to come to the ED for further evaluation. He noted that he began having petechia on his calves and ecchymosis on his feet bilaterally. 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 - Labs at admission noted platelet count of 6,000 which is a significant change from the labs on previous admissions. 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 - peripheral smear negative for shistocytes. ldh nml. - Hit AB negative - s/p 1 unit plt 08/17, 1 unit on 08/18, 1 unit 08/19 - Course of IV solumedrol completed - PO prednisone - IVIG started on 08/18 and 08/19 - once platelets above 50k will rechallenge with dual anti plt therapy to protect the [place]. - Nplate (08/23) per Hematology. Weekly to stimulate platelets. - platelet count 14k (08/24) - Case d/w Dr. Plascencia (08/24/18) - Repeat CBC in AM CHF with preserved LV function - Currently compensated - Pt was taken off Lasix, to be used as needed for any LE edema - He was continued on Aldactone - Cont. BB Diabetes mellitus - NovoLog SSI - Accu checks - continue PO prednisone for now per Hematology - change levemir to 10 units in PM & 20 units in AM CKD, stage 3 - labs are stable Progress Note: Quality VTE Deep Vein Thrombosis/Pulmonary Embolism Present on Admission: No _ (1) CAD (coronary artery disease) Qualifiers: Associated angina: Coronary Disease-Associated Artery/Lesion type: [place] vs. transplanted heart:
--- NOTE | 2018-08-24 17:01 | P.PNONC ---
Subjective Interval history: Patient sitting in chair, reading. He denies any bleeding. Reports his bruises are fading and petechiae rash is fading. He has not seen any new bruising. He denies any bleeding. Objective Vital Signs/Intake & Output: Vital Signs 08/23/18 20:00 08/24/18 00:00 08/24/18 01:20 Temperature 98.2 F 97.7 F Pulse Rate 59 L 60 Respiratory Rate 20 20 18 Blood Pressure 147/72 H 165/85 H Pulse Oximetry 100 99 08/24/18 04:00 08/24/18 08:00 08/24/18 12:00 Temperature 97.5 F L 97.2 F L 97.7 F Pulse Rate 59 L 73 63 Respiratory Rate 20 20 20 Blood Pressure 146/84 H 164/83 H 137/64 Pulse Oximetry 99 99 95 08/24/18 16:00 Temperature 97.8 F Pulse Rate 64 Respiratory Rate 20 Blood Pressure 156/73 H Pulse Oximetry 98 Intake & Output 08/23/18 08/24/18 08/24/18 18:59 06:59 18:59 Intake Total 360 / 360 Balance 360 / 360 Weight 66.8 kg Intake: Oral 360 / 360 Other: # Voids 1 4 Result Diagrams: 08/24/18 05:27 08/21/18 08:56 Laboratory Results: Laboratory Results - last 24 hr 08/23/18 08/23/18 08/24/18 17:18 21:06 05:27 WBC 13.3 H RBC 3.83 L Hgb 11.8 L Hct 35.8 L MCV 93.5 MCH 30.7 MCHC 32.8 RDW 15.6 Plt Count 14 L* MPV 10.1 Prelim Diff (Auto) Slide review pending Neut % (Auto) 67.5 Lymph % (Auto) 27.1 [place] % (Auto) 5.2 Eos % (Auto) 0.1 Baso % (Auto) 0.1 Neut # (Auto) 9.0 H Lymph # (Auto) 3.6 [place] # (Auto) 0.7 Eos # (Auto) 0.0 Baso # (Auto) 0.0 WBC Differential . Diff Scan Auto diff confirmed Differential Comment . Platelet Estimate Low L Platelet Morphology Enlarged H [place] Bodies Present H POC Glucose 301 H 222 H 08/24/18 08/24/18 07:23 11:35 WBC RBC Hgb Hct MCV MCH MCHC RDW Plt Count MPV Prelim Diff (Auto) Neut % (Auto) Lymph % (Auto) [place] % (Auto) Eos % (Auto) Baso % (Auto) Neut # (Auto) Lymph # (Auto) [place] # (Auto) Eos # (Auto) Baso # (Auto) WBC Differential Diff Scan Differential Comment Platelet Estimate Platelet Morphology [place] Bodies POC Glucose 94 292 H Medications: Active Medications Generic Name Dose Route Start Last Admin Trade Name Freq PRN Reason Stop Dose Admin Atenolol 100 mg 08/18/18 09:00 08/24/18 08:42 Tenormin PO 100 mg DAILY GLENIS Administration Calcitriol 0.25 mcg 08/18/18 09:00 08/24/18 08:41 Rocaltrol PO 0.25 mcg DAILY GLENIS Administration Clonidine HCl 0.2 mg 08/21/18 15:24 08/23/18 23:48 Catapres PO 0.2 mg Q4H PRN Administration sbp > 160 Docusate Sodium 100 mg 08/23/18 00:46 08/23/18 21:18 Colace PO 100 mg BID PRN Administration CONSTIPATION Enalaprilat 1.25 mg 08/21/18 15:24 08/23/18 08:40 Vasotec Inj IV.PUSH 1.25 mg Q6H PRN Administration sbp > 170 Insulin Aspart 0 unit 08/18/18 17:00 08/24/18 13:34 Novolog Insulin Correctional Sugar Inj SQ 15 unit ACHS GLENIS Administration Protocol Melatonin 5 mg 08/17/18 21:00 08/23/18 23:48 Melatonin PO 5 mg HS GLENIS Administration Prednisone 30 mg 08/21/18 13:00 08/24/18 08:42 Deltasone PO 30 mg BID GLENIS Administration Romiplostim 70 mcg 08/23/18 18:00 08/23/18 17:13 Nplate Inj SQ 70 mcg Q7D GLENIS Administration Spironolactone 25 mg 08/18/18 09:00 08/24/18 08:42 Aldactone PO 25 mg DAILY GLENIS Administration Objective Remarks: GENERAL: Well-nourished, well-developed elderly male patient, in no acute distress. SKIN: Warm and dry. Ecchymosis to right chest wall and under left eye, fading. Fading petechiae to bilateral LE. HEAD: Normocephalic. EYES: No scleral icterus. No injection or drainage. NECK: Supple, trachea midline. CARDIOVASCULAR: +S1/S2 without murmurs. RESPIRATORY: Breath sounds equal bilaterally. Nonlabored at rest. GASTROINTESTINAL: Abdomen soft, non-tender, nondistended. EXTREMITIES: No cyanosis, or edema. MUSCULOSKELETAL: Adequate muscle tone. NEUROLOGICAL: No obvious focal deficit. Awake, alert, and oriented x3. PSYCHIATRIC: Appropriate mood and affect; insight and judgment normal. Assessment/Plan (1) CAD (coronary artery disease) Code(s): I25.10 - Atherosclerotic heart disease of [place] coronary artery without angina pectoris Status: Chronic (2) Thrombocytopenia Code(s): D69.6 - Thrombocytopenia, unspecified Status: Acute - Plan Mr. Lees 72-year-old gentleman, with a history of idiopathic thrombocytopenic purpura, currently hospitalized for symptomatic thrombocytopenia from ITP exacerbation. Patient had a recent hospitalization for heart block, received pacemaker placement and also placement of a drug-eluting stent to the LAD. Patient was discharged home on Plavix and aspirin. 1. ITP s/p IVIG and steroids, continues on steroids. He should continue on prednisone approximately 1 mg/kg, 30 mg p.o. twice daily. He will need a slow taper and outpatient basis. 2. Pt has competing needs, antiplatelet therapy for his coronary artery disease and recent stent and to treat his ITP and increase his platelet count to prevent spontaneous bleeding. 3. Platelets decreased to 14,000. Status post Nplate injection yesterday. This will be given q7 days. 4. Repeat CBC in the a.m. - Attending Statement The exam, history, and the medical decision-making described in the above note were completed with the assistance of the mid-level provider. I reviewed and agree with the findings presented. I attest that I had a [id number] encounter with the patient on the same day, and personally performed and documented my assessment and findings in the medical record. Patient denies any bleeding. His platelet count however trended down to 14,000. He had one injection of endplate. It is too early to assess response. Continue prednisone. Continue to monitor CBC closely.
[2018-08-24] MEDS: Melatonin 5 MG Tablet PO SCH (22:48)
[2018-08-25 06:53] LABS: Baso % (Auto) 0.3 % (0.0-2.0); Eos % (Auto) 0.1 % (0.0-4.0); Hematocrit 36.6 % (39.0-51.0); Hemoglobin 12.2 gm/dL (13.0-17.0); Lymph # (Auto) 3.5 th/mm3 (1.0-4.8); Lymph % (Auto) 24.7 % (9.0-44.0); Mean Corpuscular HGB Conc 33.4 % (32.0-36.0); Mean Corpuscular Hemoglobin 30.8 pg (27.0-34.0); Mean Corpuscular Volume 92.2 fL (80.0-100.0); Mono # (Auto) 0.7 th/mm3 (0.0-0.9); Mono % (Auto) 4.8 % (0.0-8.0); Neut # (Auto) 9.9 th/mm3 (1.8-7.7); Neut % (Auto) 70.1 % (16.0-70.0); Red Blood Count 3.97 mil/mm3 (4.50-5.90); Red Cell Distribution Width 15.9 % (11.6-17.2)
[2018-08-25 07:04] LABS: Platelet Count 14 th/mm3 (150-450)
[2018-08-25 08:04] LABS: Howell-Jolly Bodies Present
[2018-08-25] MEDS: Atenolol 100 MG Tablet PO SCH (09:18)
[2018-08-25] MEDS: Calcitriol 0.25 MCG Capsule PO SCH (09:18)
[2018-08-25] MEDS: predniSONE 10 MG Tablet PO SCH ×2 (09:18→21:04)
[2018-08-25] MEDS: Spironolactone 25 MG Tablet PO SCH (09:18)
[2018-08-25] MEDS: Insulin NovoLOG Aspart Correctional Sugar Inj SQ SCH ×4 (09:18→21:06)
[2018-08-25] MEDS: Insulin Detemir Inj 1,000 UNIT/10 ML Vial SQ SCH ×2 (09:19→21:06)
[2018-08-25] MEDS: Docusate Sodium 100 MG Capsule PO PRN (09:57)
--- NOTE | 2018-08-25 13:56 | P.PNONC ---
Subjective Interval history: Patient sitting in chair. He denies any bleeding. Denies any chest pain. He reports he did some push-ups and sit ups in his room and had no symptoms. He has been ambulating the hallways. Objective Vital Signs/Intake & Output: Vital Signs 08/24/18 16:00 08/24/18 20:00 08/25/18 00:00 Temperature 97.8 F 97.4 F L 97.8 F Pulse Rate 61 60 60 Respiratory Rate 20 20 20 Blood Pressure 156/73 H 154/72 H 156/76 H Pulse Oximetry 98 100 99 08/25/18 04:00 08/25/18 08:00 08/25/18 12:00 Temperature 98.1 F 97.6 F 97.2 F L Pulse Rate 68 59 L 77 Respiratory Rate 20 18 20 Blood Pressure 161/76 H 169/84 H 151/75 H Pulse Oximetry 99 98 98 Intake & Output 08/24/18 08/25/18 08/25/18 18:59 06:59 18:59 Intake Total 360 / 360 Balance 360 / 360 Weight 67.1 kg Intake: Oral 360 / 360 Other: # Voids 4 2 Result Diagrams: 08/25/18 06:35 08/21/18 08:56 Laboratory Results: Laboratory Results - last 24 hr 08/24/18 08/24/18 08/25/18 17:03 20:37 06:35 WBC 14.0 H RBC 3.97 L Hgb 12.2 L Hct 36.6 L MCV 92.2 MCH 30.8 MCHC 33.4 RDW 15.9 Plt Count 14 L* MPV 10.0 Prelim Diff (Auto) Slide review pending Neut % (Auto) 70.1 H Lymph % (Auto) 24.7 [place] % (Auto) 4.8 Eos % (Auto) 0.1 Baso % (Auto) 0.3 Neut # (Auto) 9.9 H Lymph # (Auto) 3.5 [place] # (Auto) 0.7 Eos # (Auto) 0.0 Baso # (Auto) 0.0 WBC Differential . Diff Scan Auto diff confirmed Differential Comment . Platelet Estimate Low L Platelet Morphology Enlarged H [place] Bodies Present H POC Glucose 370 H 210 H 08/25/18 08/25/18 08/25/18 07:36 11:57 11:58 WBC RBC Hgb Hct MCV MCH MCHC RDW Plt Count MPV Prelim Diff (Auto) Neut % (Auto) Lymph % (Auto) [place] % (Auto) Eos % (Auto) Baso % (Auto) Neut # (Auto) Lymph # (Auto) [place] # (Auto) Eos # (Auto) Baso # (Auto) WBC Differential Diff Scan Differential Comment Platelet Estimate Platelet Morphology [place] Bodies POC Glucose 147 H 300 H 286 H Medications: Active Medications Generic Name Dose Route Start Last Admin Trade Name Freq PRN Reason Stop Dose Admin Atenolol 100 mg 08/18/18 09:00 08/25/18 09:18 Tenormin PO 100 mg DAILY GLENIS Administration Calcitriol 0.25 mcg 08/18/18 09:00 08/25/18 09:18 Rocaltrol PO 0.25 mcg DAILY GLENIS Administration Clonidine HCl 0.2 mg 08/21/18 15:24 08/23/18 23:48 Catapres PO 0.2 mg Q4H PRN Administration sbp > 160 Docusate Sodium 100 mg 08/23/18 00:46 08/25/18 09:57 Colace PO 100 mg BID PRN Administration CONSTIPATION Enalaprilat 1.25 mg 08/21/18 15:24 08/23/18 08:40 Vasotec Inj IV.PUSH 1.25 mg Q6H PRN Administration sbp > 170 Insulin Aspart 0 unit 08/18/18 17:00 08/25/18 13:03 Novolog Insulin Correctional Sugar Inj SQ 15 unit ACHS GLENIS Administration Protocol Insulin Detemir 20 unit 08/25/18 09:00 08/25/18 09:19 Levemir Inj SQ 20 unit DAILY GLENIS Administration Insulin Detemir 10 unit 08/24/18 21:00 08/24/18 22:56 Levemir Inj SQ 10 unit HS GLENIS Administration Melatonin 5 mg 08/17/18 21:00 08/24/18 22:48 Melatonin PO 5 mg HS GLENIS Administration Prednisone 30 mg 08/21/18 13:00 08/25/18 09:18 Deltasone PO 30 mg BID GLENIS Administration Romiplostim 70 mcg 08/23/18 18:00 08/23/18 17:13 Nplate Inj SQ 70 mcg Q7D GLENIS Administration Spironolactone 25 mg 08/18/18 09:00 08/25/18 09:18 Aldactone PO 25 mg DAILY GLENIS Administration Objective Remarks: GENERAL: Well-nourished, well-developed elderly male patient, in no acute distress. SKIN: Warm and dry. Ecchymosis to right chest wall and under left eye, fading. Fading petechiae to bilateral LE. HEAD: Normocephalic. EYES: No scleral icterus. No injection or drainage. NECK: Supple, trachea midline. CARDIOVASCULAR: +S1/S2 without murmurs. RESPIRATORY: Posterior breath sounds equal bilaterally. Nonlabored at rest. GASTROINTESTINAL: Abdomen soft, non-tender, nondistended. EXTREMITIES: No cyanosis, or edema. MUSCULOSKELETAL: Adequate muscle tone. NEUROLOGICAL: No obvious focal deficit. Awake, alert, and oriented x3. PSYCHIATRIC: Appropriate mood and affect; insight and judgment normal. Assessment/Plan (1) CAD (coronary artery disease) Code(s): I25.10 - Atherosclerotic heart disease of [place] coronary artery without angina pectoris Status: Chronic (2) Thrombocytopenia Code(s): D69.6 - Thrombocytopenia, unspecified Status: Acute - Plan Mr. Lees 72-year-old gentleman, with a history of idiopathic thrombocytopenic purpura, currently hospitalized for symptomatic thrombocytopenia from ITP exacerbation. Patient had a recent hospitalization for heart block, received pacemaker placement and also placement of a drug-eluting stent to the LAD. Patient was discharged home on Plavix and aspirin. 1. ITP s/p IVIG and steroids, continues on steroids. He should continue on prednisone approximately 1 mg/kg, 30 mg p.o. twice daily. He will need a slow taper and outpatient basis. 2. Pt has competing needs, antiplatelet therapy for his coronary artery disease and recent stent and to treat his ITP and increase his platelet count to prevent spontaneous bleeding. 3. Platelets remain 14,000. Status post Nplate injection. This will be given q7 days. 4. Repeat CBC in the a.m. - Attending Statement The exam, history, and the medical decision-making described in the above note were completed with the assistance of the mid-level provider. I reviewed and agree with the findings presented. I attest that I had a [id number] encounter with the patient on the same day, and personally performed and documented my assessment and findings in the medical record. Patient denies any bleeding. The petechiae continued to improved. Platelet count stable at 14 ,000 today. Patient received Nplate injection 2 days ago. Continue prednisone for now.
--- NOTE | 2018-08-25 14:50 | P.PNIM ---
Subjective Interval history: Pt has NO new clinical complaints. Physical Exam Vital signs: Last Vital Signs Temp 97.2 F L 08/25/18 12:00 Pulse 77 08/25/18 12:00 Resp 20 08/25/18 12:00 BP 151/75 H 08/25/18 12:00 Pulse Ox 98 08/25/18 12:00 Narrative: GENERAL: This is a well-nourished, well-developed patient, in no apparent distress. CARDIOVASCULAR: Regular rate and rhythm without murmurs, gallops, or rubs. RESPIRATORY: Clear to auscultation. Breath sounds equal bilaterally. No wheezes , rales, or rhonchi. GASTROINTESTINAL: Abdomen soft, non-tender, nondistended. Normal active bowel sounds MUSCULOSKELETAL: Extremities without clubbing, cyanosis, or edema. NEURO: Alert & Oriented x4 to person, place, time, situation. Moves all ext x4 Results Labs CBC & Chem 7: 08/25/18 06:35 08/21/18 08:56 Assessment and Plan Assessment (1) CAD (coronary artery disease): Code(s): I25.10 - Atherosclerotic heart disease of [place] coronary artery without angina pectoris Status: Chronic (2) Thrombocytopenia: Code(s): D69.6 - Thrombocytopenia, unspecified Status: Acute Plan Acute thrombocytopenia ITP - Pt is a pleasant 72 y/o WM with prior aortic valve pathology s/p AVR in 2010, hx of diastolic heart failure, CKD, stage III, HTN, CAD, DM and remote hx of ITP. - Pt had a recent complicated hospitalization, details below. Pt had been doing well following that hospitalization. This morning he woke up and noted blood on his pillow. He states that he noted some large bloody blistering on his lips and buccal mucosa. This prompted him to come to the ED for further evaluation. He noted that he began having petechia on his calves and ecchymosis on his feet bilaterally. 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 - Labs at admission noted platelet count of 6,000 which is a significant change from the labs on previous admissions. 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 - peripheral smear negative for shistocytes. ldh nml. - Hit AB negative - s/p 1 unit plt 08/17, 1 unit on 08/18, 1 unit 08/19 - Course of IV solumedrol completed - PO prednisone - IVIG started on 08/18 and 08/19 - once platelets above 50k will rechallenge with dual anti plt therapy to protect the [place]. - Nplate (08/23) per Hematology. Weekly to stimulate platelets. - platelet count 14k (08/24), 14K (08/25) - Case d/w Dr. Plascencia (08/24/18) - Pt interviewed and examined 08/25. Pt remains stable & in good spirits. Repeat CBC in AM and monitor platelet level. CHF with preserved LV function - Currently compensated - Pt was taken off Lasix, to be used as needed for any LE edema - He was continued on Aldactone - Cont. BB Diabetes mellitus - NovoLog SSI - Accu checks - continue PO prednisone for now per Hematology - change levemir to 10 units in PM & 20 units in AM CKD, stage 3 - labs are stable Progress Note: Quality VTE Deep Vein Thrombosis/Pulmonary Embolism Present on Admission: No _ (1) CAD (coronary artery disease) Qualifiers: Coronary Disease-Associated Artery/Lesion type: [place] vs. transplanted heart: Associated angina:
[2018-08-25] MEDS: Melatonin 5 MG Tablet PO SCH (21:05)
[2018-08-26] MEDS: Docusate Sodium 100 MG Capsule PO PRN ×3 (01:52→17:57)
[2018-08-26 07:46] LABS: Eos % (Auto) 0.1 % (0.0-4.0); Hematocrit 33.8 % (39.0-51.0); Hemoglobin 11.2 gm/dL (13.0-17.0); Lymph # (Auto) 4.4 th/mm3 (1.0-4.8); Lymph % (Auto) 27.5 % (9.0-44.0); Mean Corpuscular HGB Conc 33.3 % (32.0-36.0); Mean Corpuscular Hemoglobin 30.8 pg (27.0-34.0); Mean Corpuscular Volume 92.5 fL (80.0-100.0); Mono # (Auto) 0.9 th/mm3 (0.0-0.9); Mono % (Auto) 5.7 % (0.0-8.0); Neut # (Auto) 10.7 th/mm3 (1.8-7.7); Neut % (Auto) 66.7 % (16.0-70.0); Red Blood Count 3.65 mil/mm3 (4.50-5.90); Red Cell Distribution Width 16.3 % (11.6-17.2); White Blood Count 16.1 th/mm3 (4.0-11.0)
[2018-08-26 07:53] LABS: Platelet Count 15 th/mm3 (150-450)
[2018-08-26] MEDS: Insulin NovoLOG Aspart Correctional Sugar Inj SQ SCH ×4 (08:24→22:47)
[2018-08-26] MEDS: Atenolol 100 MG Tablet PO SCH (08:29)
[2018-08-26] MEDS: predniSONE 10 MG Tablet PO SCH ×2 (08:29→22:39)
[2018-08-26] MEDS: Calcitriol 0.25 MCG Capsule PO SCH (08:29)
[2018-08-26] MEDS: Spironolactone 25 MG Tablet PO SCH (08:29)
[2018-08-26] MEDS: Insulin Detemir Inj 1,000 UNIT/10 ML Vial SQ SCH ×2 (08:30→22:46)
[2018-08-26 09:06] LABS: Acanthocytes Occ
[2018-08-26 09:07] LABS: Howell-Jolly Bodies Present
--- NOTE | 2018-08-26 16:09 | P.PNIM ---
Subjective Interval history: No new clinical complaints. Physical Exam Vital signs: Last Vital Signs Temp 97.7 F 08/26/18 15:26 Pulse 59 L 08/26/18 15:26 Resp 18 08/26/18 15:26 BP 134/66 08/26/18 15:26 Pulse Ox 99 08/26/18 15:26 Narrative: GENERAL: This is a well-nourished, well-developed patient, in no apparent distress. CARDIOVASCULAR: Regular rate and rhythm without murmurs, gallops, or rubs. RESPIRATORY: Clear to auscultation. Breath sounds equal bilaterally. No wheezes , rales, or rhonchi. GASTROINTESTINAL: Abdomen soft, non-tender, nondistended. Normal active bowel sounds MUSCULOSKELETAL: Extremities without clubbing, cyanosis, or edema. NEURO: Alert & Oriented x4 to person, place, time, situation. Moves all ext x4 Results Labs CBC & Chem 7: 08/28/18 07:07 08/21/18 08:56 Assessment and Plan Assessment (1) CAD (coronary artery disease): Code(s): I25.10 - Atherosclerotic heart disease of [place] coronary artery without angina pectoris Status: Chronic (2) Thrombocytopenia: Code(s): D69.6 - Thrombocytopenia, unspecified Status: Acute Plan Acute thrombocytopenia ITP - Pt is a pleasant 72 y/o WM with prior aortic valve pathology s/p AVR in 2010, hx of diastolic heart failure, CKD, stage III, HTN, CAD, DM and remote hx of ITP. - Pt had a recent complicated hospitalization, details below. Pt had been doing well following that hospitalization. This morning he woke up and noted blood on his pillow. He states that he noted some large bloody blistering on his lips and buccal mucosa. This prompted him to come to the ED for further evaluation. He noted that he began having petechia on his calves and ecchymosis on his feet bilaterally. 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 - Labs at admission noted platelet count of 6,000 which is a significant change from the labs on previous admissions. 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 - peripheral smear negative for shistocytes. ldh nml. - Hit AB negative - s/p 1 unit plt 08/17, 1 unit on 08/18, 1 unit 08/19 - Course of IV solumedrol completed - PO prednisone - IVIG started on 08/18 and 08/19 - once platelets above 50k will rechallenge with dual anti plt therapy to protect the [place]. - Nplate (08/23) per Hematology. Weekly to stimulate platelets. - platelet count 14k (08/24), 14K (08/25), 15 (08/26) - Case d/w Dr. Plascencia (08/24/18) - repeat CBC in AM CHF with preserved LV function - Currently compensated - Pt was taken off Lasix, to be used as needed for any LE edema - He was continued on Aldactone - Cont. BB Diabetes mellitus - NovoLog SSI - Accu checks - continue PO prednisone for now per Hematology - change levemir to 10 units in PM & 20 units in AM CKD, stage 3 - labs are stable Progress Note: Quality VTE Deep Vein Thrombosis/Pulmonary Embolism Present on Admission: No _ (1) CAD (coronary artery disease) Qualifiers: Associated angina: Coronary Disease-Associated Artery/Lesion type: [place] vs. transplanted heart:
--- NOTE | 2018-08-26 19:29 | P.PNONC ---
Subjective Interval history: Patient stated that he is bored Sitting on the chair beside the bed Noticed that some of the petechiae in his lower legs are improving Objective Vital Signs/Intake & Output: Vital Signs 08/25/18 20:00 08/25/18 23:51 08/26/18 00:00 Temperature 97.5 F L 97.9 F Pulse Rate 62 60 60 Respiratory Rate 18 18 Blood Pressure 148/72 H 157/72 H Pulse Oximetry 99 98 08/26/18 04:00 08/26/18 08:00 08/26/18 12:00 Temperature 97.5 F L 97.9 F 97.4 F L Pulse Rate 58 L 60 86 Respiratory Rate 18 18 18 Blood Pressure 160/76 H 160/81 H 169/79 H Pulse Oximetry 98 99 99 08/26/18 15:26 08/26/18 17:00 Temperature 97.7 F Pulse Rate 59 L 61 Respiratory Rate 18 Blood Pressure 134/66 Pulse Oximetry 99 Intake & Output 08/26/18 08/26/18 08/27/18 06:59 18:59 06:59 Intake Total 600 / 600 1200 / 1200 Balance 600 / 600 1200 / 1200 Weight 67.1 kg Intake: Oral 600 / 600 1200 / 1200 Other: # Voids 4 Date of Last Bowel Movement 08/25/18 Result Diagrams: 08/26/18 06:10 08/21/18 08:56 Laboratory Results: Laboratory Results - last 24 hr 08/25/18 08/26/18 08/26/18 20:50 06:10 08:10 WBC 16.1 H RBC 3.65 L Hgb 11.2 L Hct 33.8 L MCV 92.5 MCH 30.8 MCHC 33.3 RDW 16.3 Plt Count 15 L* MPV 10.0 Prelim Diff (Auto) Slide review pending Neut % (Auto) 66.7 Lymph % (Auto) 27.5 [place] % (Auto) 5.7 Eos % (Auto) 0.1 Baso % (Auto) 0.0 Neut # (Auto) 10.7 H Lymph # (Auto) 4.4 [place] # (Auto) 0.9 Eos # (Auto) 0.0 Baso # (Auto) 0.0 WBC Differential . Diff Scan Auto diff confirmed Differential Comment . Platelet Estimate Low L Platelet Morphology Enlarged H [place] Bodies Present H Acanthocytes ([place]) Occ H POC Glucose 221 H 133 H 08/26/18 08/26/18 12:44 16:50 WBC RBC Hgb Hct MCV MCH MCHC RDW Plt Count MPV Prelim Diff (Auto) Neut % (Auto) Lymph % (Auto) [place] % (Auto) Eos % (Auto) Baso % (Auto) Neut # (Auto) Lymph # (Auto) [place] # (Auto) Eos # (Auto) Baso # (Auto) WBC Differential Diff Scan Differential Comment Platelet Estimate Platelet Morphology [place] Bodies Acanthocytes (Spur) POC Glucose 324 H 210 H Medications: Active Medications Generic Name Dose Route Start Last Admin Trade Name Freq PRN Reason Stop Dose Admin Atenolol 100 mg 08/18/18 09:00 08/26/18 08:29 Tenormin PO 100 mg DAILY GLENIS Administration Calcitriol 0.25 mcg 08/18/18 09:00 08/26/18 08:29 Rocaltrol PO 0.25 mcg DAILY GLENIS Administration Clonidine HCl 0.2 mg 08/21/18 15:24 08/26/18 13:06 Catapres PO 0.2 mg Q4H PRN Administration sbp > 160 Docusate Sodium 100 mg 08/23/18 00:46 08/26/18 17:57 Colace PO 100 mg BID PRN Administration CONSTIPATION Enalaprilat 1.25 mg 08/21/18 15:24 08/23/18 08:40 Vasotec Inj IV.PUSH 1.25 mg Q6H PRN Administration sbp > 170 Insulin Aspart 0 unit 08/18/18 17:00 08/26/18 17:54 Novolog Insulin Correctional Sugar Inj SQ 10 unit ACHS GLENIS Administration Protocol Insulin Detemir 10 unit 08/24/18 21:00 08/25/18 21:06 Levemir Inj SQ 10 unit HS GLENIS Administration Melatonin 5 mg 08/17/18 21:00 08/25/18 21:05 Melatonin PO 5 mg HS GLENIS Administration Prednisone 30 mg 08/21/18 13:00 08/26/18 08:29 Deltasone PO 30 mg BID GLENIS Administration Romiplostim 70 mcg 08/23/18 18:00 08/23/18 17:13 Nplate Inj SQ 70 mcg Q7D GLENIS Administration Spironolactone 25 mg 08/18/18 09:00 08/26/18 08:29 Aldactone PO 25 mg DAILY GLENIS Administration Objective Remarks: GENERAL: Well-nourished, well-developed elderly male patient, in no acute distress. SKIN: Warm and dry. Ecchymosis to right chest wall and under left eye, fading. Fading petechiae to bilateral LE. HEAD: Normocephalic. EYES: No scleral icterus. No injection or drainage. NECK: Supple, trachea midline. CARDIOVASCULAR: +S1/S2 without murmurs. RESPIRATORY: Posterior breath sounds equal bilaterally. Nonlabored at rest. GASTROINTESTINAL: Abdomen soft, non-tender, nondistended. EXTREMITIES: No cyanosis, or edema. MUSCULOSKELETAL: Adequate muscle tone. NEUROLOGICAL: No obvious focal deficit. Awake, alert, and oriented x3. PSYCHIATRIC: Appropriate mood and affect; insight and judgment normal. Assessment/Plan (1) CAD (coronary artery disease) Code(s): I25.10 - Atherosclerotic heart disease of [place] coronary artery without angina pectoris Status: Chronic (2) Thrombocytopenia Code(s): D69.6 - Thrombocytopenia, unspecified Status: Acute - Plan Mr. Lees 72-year-old gentleman, with a history of idiopathic thrombocytopenic purpura, currently hospitalized for symptomatic thrombocytopenia from ITP exacerbation. Patient had a recent hospitalization for heart block, received pacemaker placement and also placement of a drug-eluting stent to the LAD. Patient was discharged home on Plavix and aspirin. 1. ITP s/p IVIG and steroids, continues on steroids. He should continue on prednisone approximately 1 mg/kg, 30 mg p.o. twice daily. He will need a slow taper and outpatient basis. 2. Pt has competing needs, antiplatelet therapy for his coronary artery disease and recent stent and to treat his ITP and increase his platelet count to prevent spontaneous bleeding. 3. Platelets remain 14,000. Status post Nplate injection. This will be given q7 days. 4. Repeat CBC in the a.m. 08/26/2018 No obvious bleeding Platelets are still low Patient is on prednisone and had received Nplate Monitor CBC Discussed with the patient and answer his questions
[2018-08-26] MEDS: Melatonin 5 MG Tablet PO SCH (22:40)
[2018-08-27] MEDS: Spironolactone 25 MG Tablet PO SCH (08:07)
[2018-08-27] MEDS: predniSONE 10 MG Tablet PO SCH ×2 (08:07→22:18)
[2018-08-27] MEDS: Calcitriol 0.25 MCG Capsule PO SCH (08:07)
[2018-08-27] MEDS: Atenolol 100 MG Tablet PO SCH (08:09)
[2018-08-27] MEDS: Insulin NovoLOG Aspart Correctional Sugar Inj SQ SCH ×4 (08:11→22:19)
[2018-08-27] MEDS: Insulin Detemir Inj 1,000 UNIT/10 ML Vial SQ SCH ×2 (08:11→22:19)
[2018-08-27 08:22] LABS: Baso % (Auto) 0.3 % (0.0-2.0); Eos % (Auto) 0.1 % (0.0-4.0); Hematocrit 34.8 % (39.0-51.0); Hemoglobin 11.6 gm/dL (13.0-17.0); Lymph # (Auto) 4.1 th/mm3 (1.0-4.8); Lymph % (Auto) 25.2 % (9.0-44.0); Mean Corpuscular HGB Conc 33.2 % (32.0-36.0); Mean Corpuscular Hemoglobin 30.6 pg (27.0-34.0); Mean Corpuscular Volume 92.1 fL (80.0-100.0); Mean Platelet Volume 11.1 fL (7.0-11.0); Mono # (Auto) 0.9 th/mm3 (0.0-0.9); Mono % (Auto) 5.4 % (0.0-8.0); Neut # (Auto) 11.3 th/mm3 (1.8-7.7); Platelet Count 38 th/mm3 (150-450); Red Blood Count 3.78 mil/mm3 (4.50-5.90); Red Cell Distribution Width 16.7 % (11.6-17.2); White Blood Count 16.4 th/mm3 (4.0-11.0)
[2018-08-27 08:59] LABS: Howell-Jolly Bodies Present
[2018-08-27 09:00] LABS: Platelet Morphology Normal (Normal)
[2018-08-27] MEDS: Docusate Sodium 100 MG Capsule PO PRN ×2 (10:54→22:36)
--- NOTE | 2018-08-27 14:51 | P.PNONC ---
Subjective Interval history: Patient with no complaints today. Denies any bleeding. He is happy with the results of his CBC today. Objective Vital Signs/Intake & Output: Vital Signs 08/26/18 15:26 08/26/18 17:00 08/26/18 20:00 Temperature 97.7 F 97.3 F L Pulse Rate 59 L 61 72 Respiratory Rate 18 16 Blood Pressure 134/66 142/66 H Pulse Oximetry 99 99 08/27/18 00:00 08/27/18 04:00 08/27/18 07:27 Temperature 97.7 F 97.7 F 97.4 F L Pulse Rate 72 62 63 Respiratory Rate 18 16 20 Blood Pressure 144/65 H 170/82 H 159/76 H Pulse Oximetry 99 99 99 08/27/18 08:00 08/27/18 11:27 Temperature 97.5 F L Pulse Rate 69 63 Respiratory Rate 20 Blood Pressure 175/83 H Pulse Oximetry 98 Intake & Output 08/26/18 08/27/18 08/27/18 18:59 06:59 18:59 Intake Total 1200 / 1200 480 / 480 500 / 500 Balance 1200 / 1200 480 / 480 500 / 500 Weight 67.1 kg Intake: Oral 1200 / 1200 480 / 480 500 / 500 Other: # Voids 4 4 2 Date of Last Bowel Movement 08/25/18 Result Diagrams: 08/27/18 08:00 08/21/18 08:56 Laboratory Results: Laboratory Results - last 24 hr 08/26/18 08/26/18 08/27/18 16:50 22:43 07:25 WBC RBC Hgb Hct MCV MCH MCHC RDW Plt Count MPV Prelim Diff (Auto) Neut % (Auto) Lymph % (Auto) [place] % (Auto) Eos % (Auto) Baso % (Auto) Neut # (Auto) Lymph # (Auto) [place] # (Auto) Eos # (Auto) Baso # (Auto) WBC Differential Diff Scan Differential Comment Platelet Estimate Platelet Morphology [place] Bodies POC Glucose 210 H 247 H 188 H 08/27/18 08/27/18 08:00 11:52 WBC 16.4 H RBC 3.78 L Hgb 11.6 L Hct 34.8 L MCV 92.1 MCH 30.6 MCHC 33.2 RDW 16.7 Plt Count 38 L D MPV 11.1 H Prelim Diff (Auto) Slide review pending Neut % (Auto) 69.0 Lymph % (Auto) 25.2 [place] % (Auto) 5.4 Eos % (Auto) 0.1 Baso % (Auto) 0.3 Neut # (Auto) 11.3 H Lymph # (Auto) 4.1 [place] # (Auto) 0.9 Eos # (Auto) 0.0 Baso # (Auto) 0.0 WBC Differential . Diff Scan Auto diff confirmed Differential Comment . Platelet Estimate Low L Platelet Morphology Normal [place] Bodies Present H POC Glucose 272 H Medications: Active Medications Generic Name Dose Route Start Last Admin Trade Name Freq PRN Reason Stop Dose Admin Atenolol 100 mg 08/18/18 09:00 08/27/18 08:09 Tenormin PO 100 mg DAILY GLENIS Administration Calcitriol 0.25 mcg 08/18/18 09:00 08/27/18 08:07 Rocaltrol PO 0.25 mcg DAILY GLENIS Administration Clonidine HCl 0.2 mg 08/21/18 15:24 08/26/18 13:06 Catapres PO 0.2 mg Q4H PRN Administration sbp > 160 Docusate Sodium 100 mg 08/23/18 00:46 08/27/18 10:54 Colace PO 100 mg BID PRN Administration CONSTIPATION Enalaprilat 1.25 mg 08/21/18 15:24 08/23/18 08:40 Vasotec Inj IV.PUSH 1.25 mg Q6H PRN Administration sbp > 170 Insulin Aspart 0 unit 08/18/18 17:00 08/27/18 13:48 Novolog Insulin Correctional Sugar Inj SQ 15 unit ACHS GLENIS Administration Protocol Insulin Detemir 10 unit 08/24/18 21:00 08/26/18 22:46 Levemir Inj SQ 10 unit HS GLENIS Administration Insulin Detemir 24 unit 08/27/18 09:00 08/27/18 08:11 Levemir Inj SQ 24 unit DAILY GLENIS Administration Melatonin 5 mg 08/17/18 21:00 08/26/18 22:40 Melatonin PO 5 mg HS GLENIS Administration Prednisone 30 mg 08/21/18 13:00 08/27/18 08:07 Deltasone PO 30 mg BID GLENIS Administration Romiplostim 70 mcg 08/23/18 18:00 08/23/18 17:13 Nplate Inj SQ 70 mcg Q7D GLENIS Administration Spironolactone 25 mg 08/18/18 09:00 08/27/18 08:07 Aldactone PO 25 mg DAILY GLENIS Administration Objective Remarks: GENERAL: Well-nourished, well-developed elderly male patient, in no acute distress. SKIN: Warm and dry. Ecchymosis to right chest wall and under left eye, fading. HEAD: Normocephalic. EYES: No scleral icterus. No injection or drainage. NECK: Supple, trachea midline. CARDIOVASCULAR: +S1/S2 without murmurs. RESPIRATORY: Posterior breath sounds equal bilaterally. Nonlabored at rest. GASTROINTESTINAL: Abdomen soft, non-tender, nondistended. EXTREMITIES: No cyanosis, or edema. MUSCULOSKELETAL: Adequate muscle tone. NEUROLOGICAL: No obvious focal deficit. Awake, alert, and oriented x3. PSYCHIATRIC: Appropriate mood and affect; insight and judgment normal. Assessment/Plan (1) CAD (coronary artery disease) Code(s): I25.10 - Atherosclerotic heart disease of [place] coronary artery without angina pectoris Status: Chronic (2) Thrombocytopenia Code(s): D69.6 - Thrombocytopenia, unspecified Status: Acute - Plan Mr. Lees 72-year-old gentleman, with a history of idiopathic thrombocytopenic purpura, currently hospitalized for symptomatic thrombocytopenia from ITP exacerbation. Patient had a recent hospitalization for heart block, received pacemaker placement and also placement of a drug-eluting stent to the LAD. Patient was discharged home on Plavix and aspirin. 1. ITP s/p IVIG and steroids, continues on steroids. He should continue on prednisone approximately 1 mg/kg, 30 mg p.o. twice daily. He will need a slow taper and outpatient basis. 2. Pt has competing needs, antiplatelet therapy for his coronary artery disease and recent stent and to treat his ITP and increase his platelet count to prevent spontaneous bleeding. 3. Platelets improved to 38,000 today. Status post Nplate injection on 2017. This will be given q7 days as needed. 4. Repeat CBC in the a.m. - Attending Statement The exam, history, and the medical decision-making described in the above note were completed with the assistance of the mid-level provider. I reviewed and agree with the findings presented. I attest that I had a [id number] encounter with the patient on the same day, and personally performed and documented my assessment and findings in the medical record. Patient is sitting on the chair, talking on the phone with his daughter Denies any bleeding Platelets went up to 38 today. Patient is happy with that Once platelet count goes above 50 then needs to resume antiplatelets agent Monitor CBC
--- NOTE | 2018-08-27 15:00 | P.PNIM ---
Subjective Interval history: No new complaints. Physical Exam Vital signs: Last Vital Signs Temp 97.5 F L 08/27/18 11:27 Pulse 63 08/27/18 11:27 Resp 20 08/27/18 11:27 BP 175/83 H 08/27/18 11:27 Pulse Ox 98 08/27/18 11:27 Narrative: GENERAL: This is a well-nourished, well-developed patient, in no apparent distress. CARDIOVASCULAR: Regular rate and rhythm without murmurs, gallops, or rubs. RESPIRATORY: Clear to auscultation. Breath sounds equal bilaterally. No wheezes , rales, or rhonchi. GASTROINTESTINAL: Abdomen soft, non-tender, nondistended. Normal active bowel sounds MUSCULOSKELETAL: Extremities without clubbing, cyanosis, or edema. NEURO: Alert & Oriented x4 to person, place, time, situation. Moves all ext x4 Results Labs CBC & Chem 7: 08/28/18 07:07 08/21/18 08:56 Assessment and Plan Assessment (1) CAD (coronary artery disease): Code(s): I25.10 - Atherosclerotic heart disease of [place] coronary artery without angina pectoris Status: Chronic (2) Thrombocytopenia: Code(s): D69.6 - Thrombocytopenia, unspecified Status: Acute Plan Acute thrombocytopenia ITP - Pt is a pleasant 72 y/o WM with prior aortic valve pathology s/p AVR in 2010, hx of diastolic heart failure, CKD, stage III, HTN, CAD, DM and remote hx of ITP. - Pt had a recent complicated hospitalization, details below. Pt had been doing well following that hospitalization. This morning he woke up and noted blood on his pillow. He states that he noted some large bloody blistering on his lips and buccal mucosa. This prompted him to come to the ED for further evaluation. He noted that he began having petechia on his calves and ecchymosis on his feet bilaterally. 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 - Labs at admission noted platelet count of 6,000 which is a significant change from the labs on previous admissions. 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 - peripheral smear negative for shistocytes. ldh nml. - Hit AB negative - s/p 1 unit plt 08/17, 1 unit on 08/18, 1 unit 08/19 - Course of IV solumedrol completed - PO prednisone - IVIG started on 08/18 and 08/19 - once platelets above 50k will rechallenge with dual anti plt therapy to protect the [place]. - Nplate (08/23) per Hematology. Weekly to stimulate platelets. - platelet count 14k (08/24), 14K (08/25), 15 (08/26), 38 (08/27) - Case d/w Dr. Plascencia (08/24/18) - repeat CBC in AM 08/27/18 - Pt interviewed and examined. - Pt has NO new complaints, but he is optimistic that platelet count has increased to 38K - repeat CBC in aM - needs improved BP control - continue BB. Start procardia XL 30mg daily CHF with preserved LV function - Currently compensated - Pt was taken off Lasix, to be used as needed for any LE edema - He was continued on Aldactone - Cont. BB Diabetes mellitus - NovoLog SSI - Accu checks - continue PO prednisone for now per Hematology - change levemir to 10 units in PM & 20 units in AM CKD, stage 3 - labs are stable Progress Note: Quality VTE Deep Vein Thrombosis/Pulmonary Embolism Present on Admission: No _ (1) CAD (coronary artery disease) Qualifiers: Associated angina: Coronary Disease-Associated Artery/Lesion type: [place] vs. transplanted heart:
[2018-08-27] MEDS: Melatonin 5 MG Tablet PO SCH (22:18)
[2018-08-28 07:34] LABS: Hematocrit 33.6 % (39.0-51.0); Hemoglobin 11.3 gm/dL (13.0-17.0); Mean Corpuscular HGB Conc 33.7 % (32.0-36.0); Mean Corpuscular Hemoglobin 31.2 pg (27.0-34.0); Mean Corpuscular Volume 92.6 fL (80.0-100.0); Mean Platelet Volume 10.5 fL (7.0-11.0); Platelet Count 68 th/mm3 (150-450); Red Blood Count 3.63 mil/mm3 (4.50-5.90); Red Cell Distribution Width 16.5 % (11.6-17.2); White Blood Count 15.7 th/mm3 (4.0-11.0)
[2018-08-28] MEDS: Calcitriol 0.25 MCG Capsule PO SCH (08:55)
[2018-08-28] MEDS: Spironolactone 25 MG Tablet PO SCH (08:55)
[2018-08-28] MEDS: Atenolol 100 MG Tablet PO SCH (08:55)
[2018-08-28] MEDS: predniSONE 10 MG Tablet PO SCH ×2 (08:55→22:11)
[2018-08-28] MEDS: Insulin Detemir Inj 1,000 UNIT/10 ML Vial SQ SCH ×2 (08:56→22:20)
[2018-08-28] MEDS: Insulin NovoLOG Aspart Correctional Sugar Inj SQ SCH ×4 (08:56→22:20)
--- NOTE | 2018-08-28 10:54 | P.PNIM ---
Subjective Interval history: Pt has NO new complaints. Pt happy about increase of his platelets. Physical Exam Vital signs: Last Vital Signs Temp 97.6 F 08/28/18 07:58 Pulse 64 08/28/18 07:58 Resp 18 08/28/18 07:58 BP 144/70 H 08/28/18 07:58 Pulse Ox 99 08/28/18 07:58 Narrative: GENERAL: This is a well-nourished, well-developed patient, in no apparent distress. CARDIOVASCULAR: Regular rate and rhythm without murmurs, gallops, or rubs. RESPIRATORY: Clear to auscultation. Breath sounds equal bilaterally. No wheezes , rales, or rhonchi. GASTROINTESTINAL: Abdomen soft, non-tender, nondistended. Normal active bowel sounds MUSCULOSKELETAL: Extremities without clubbing, cyanosis, or edema. NEURO: Alert & Oriented x4 to person, place, time, situation. Moves all ext x4 Results Labs CBC & Chem 7: 08/28/18 07:07 08/21/18 08:56 Assessment and Plan Assessment (1) CAD (coronary artery disease): Code(s): I25.10 - Atherosclerotic heart disease of [place] coronary artery without angina pectoris Status: Chronic (2) Thrombocytopenia: Code(s): D69.6 - Thrombocytopenia, unspecified Status: Acute Plan Acute thrombocytopenia ITP - Pt is a pleasant 72 y/o WM with prior aortic valve pathology s/p AVR in 2010, hx of diastolic heart failure, CKD, stage III, HTN, CAD, DM and remote hx of ITP. - Pt had a recent complicated hospitalization, details below. Pt had been doing well following that hospitalization. This morning he woke up and noted blood on his pillow. He states that he noted some large bloody blistering on his lips and buccal mucosa. This prompted him to come to the ED for further evaluation. He noted that he began having petechia on his calves and ecchymosis on his feet bilaterally. 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 - Labs at admission noted platelet count of 6,000 which is a significant change from the labs on previous admissions. 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 - peripheral smear negative for shistocytes. ldh nml. - Hit AB negative - s/p 1 unit plt 08/17, 1 unit on 08/18, 1 unit 08/19 - Course of IV solumedrol completed - PO prednisone - IVIG started on 08/18 and 08/19 - once platelets above 50k will rechallenge with dual anti plt therapy to protect the [place]. - Nplate (08/23) per Hematology. Weekly to stimulate platelets. - platelet count 14k (08/24), 14K (08/25), 15 (08/26), 38 (08/27), 68 (08/28) - Case d/w Dr. Plascencia (08/24/18) - repeat CBC in AM - resume plavix 75mg daily - anticipate d/c to home 08/29/18 - will discuss case with Dr. Plascencia and Dr. Santillan prior to discharge. HTN - BP readings improving - continue procardia XL 30mg daily (started 08/27) - aldactone - atenolol 100mg daily CHF with preserved LV function - Currently compensated - Pt was taken off Lasix, to be used as needed for any LE edema - He was continued on Aldactone - Cont. BB Diabetes mellitus - NovoLog SSI - Accu checks - continue PO prednisone for now per Hematology - levemir to 10 units in PM & 24 units in AM CKD, stage 3 - labs are stable Progress Note: Quality VTE Deep Vein Thrombosis/Pulmonary Embolism Present on Admission: No _ (1) CAD (coronary artery disease) Qualifiers: Coronary Disease-Associated Artery/Lesion type: [place] vs. transplanted heart: Associated angina:
--- NOTE | 2018-08-28 11:27 | P.PNONC ---
Subjective Interval history: Patient sitting in chair, reading a magazine. In no acute distress. He is happy that his platelets have increased. Objective Vital Signs/Intake & Output: Vital Signs 08/27/18 11:27 08/27/18 15:16 08/27/18 20:00 Temperature 97.5 F L 98.1 F 98.0 F Pulse Rate 63 64 61 Respiratory Rate 20 18 18 Blood Pressure 175/83 H 146/70 H 152/71 H Pulse Oximetry 98 99 97 08/28/18 00:00 08/28/18 02:26 08/28/18 04:00 Temperature 98.1 F 97.9 F Pulse Rate 68 65 Respiratory Rate 18 18 Blood Pressure 141/65 H 130/63 Pulse Oximetry 99 98 08/28/18 07:58 Temperature 97.6 F Pulse Rate 64 Respiratory Rate 18 Blood Pressure 144/70 H Pulse Oximetry 99 Intake & Output 08/27/18 08/28/18 08/28/18 18:59 06:59 18:59 Intake Total 1240 / 1240 Balance 1240 / 1240 Weight 68.9 kg Intake: Oral 1240 / 1240 Other: # Voids 1 3 Date of Last Bowel Movement 08/25/18 08/27/18 08/28/18 # Bowel Movements 2 Result Diagrams: 08/28/18 07:07 08/21/18 08:56 Laboratory Results: Laboratory Results - last 24 hr 08/27/18 08/27/18 08/27/18 11:52 17:25 22:17 WBC RBC Hgb Hct MCV MCH MCHC RDW Plt Count MPV POC Glucose 272 H 142 H 392 H 08/28/18 08/28/18 07:07 07:08 WBC 15.7 H RBC 3.63 L Hgb 11.3 L Hct 33.6 L MCV 92.6 MCH 31.2 MCHC 33.7 RDW 16.5 Plt Count 68 L D MPV 10.5 POC Glucose 173 H Culture Results: Microbiology 08/27/18 16:45 Aerobic Blood Culture - Preliminary Blood - Peripheral No growth in 1 day Anaerobic Blood Culture - Preliminary No growth in 1 day 08/27/18 16:40 Aerobic Blood Culture - Preliminary Blood - Peripheral No growth in 1 day Anaerobic Blood Culture - Preliminary No growth in 1 day Medications: Active Medications Generic Name Dose Route Start Last Admin Trade Name Freq PRN Reason Stop Dose Admin Atenolol 100 mg 08/18/18 09:00 08/28/18 08:55 Tenormin PO 100 mg DAILY GLENIS Administration Calcitriol 0.25 mcg 08/18/18 09:00 08/28/18 08:55 Rocaltrol PO 0.25 mcg DAILY GLENIS Administration Clonidine HCl 0.2 mg 08/21/18 15:24 08/26/18 13:06 Catapres PO 0.2 mg Q4H PRN Administration sbp > 160 Docusate Sodium 100 mg 08/23/18 00:46 08/27/18 22:36 Colace PO 100 mg BID PRN Administration CONSTIPATION Enalaprilat 1.25 mg 08/21/18 15:24 08/23/18 08:40 Vasotec Inj IV.PUSH 1.25 mg Q6H PRN Administration sbp > 170 Insulin Aspart 0 unit 08/18/18 17:00 08/28/18 08:56 Novolog Insulin Correctional Sugar Inj SQ 5 unit ACHS GLENIS Administration Protocol Insulin Detemir 10 unit 08/24/18 21:00 08/27/18 22:19 Levemir Inj SQ 10 unit HS GLENIS Administration Insulin Detemir 24 unit 08/27/18 09:00 08/28/18 08:56 Levemir Inj SQ 24 unit DAILY GLENIS Administration Melatonin 5 mg 08/17/18 21:00 08/27/18 22:18 Melatonin PO 5 mg HS GLENIS Administration Nifedipine 30 mg 08/27/18 15:15 08/28/18 08:55 Procardia Xl PO 30 mg DAILY GLENIS Administration Prednisone 30 mg 08/21/18 13:00 08/28/18 08:55 Deltasone PO 30 mg BID GLENIS Administration Romiplostim 70 mcg 08/23/18 18:00 08/23/18 17:13 Nplate Inj SQ 70 mcg Q7D GLENIS Administration Spironolactone 25 mg 08/18/18 09:00 08/28/18 08:55 Aldactone PO 25 mg DAILY GLENIS Administration Objective Remarks: GENERAL: Well-nourished, well-developed elderly male patient, in no acute distress. SKIN: Warm and dry. Ecchymosis under left eye, fading. HEAD: Normocephalic. EYES: No scleral icterus. No injection or drainage. NECK: Supple, trachea midline. CARDIOVASCULAR: +S1/S2 without murmurs. RESPIRATORY: Posterior breath sounds equal bilaterally. Nonlabored at rest. GASTROINTESTINAL: Abdomen soft, non-tender, nondistended. EXTREMITIES: No cyanosis, or edema. MUSCULOSKELETAL: Adequate muscle tone. NEUROLOGICAL: No obvious focal deficit. Awake, alert, and oriented x3. PSYCHIATRIC: Appropriate mood and affect; insight and judgment normal. Assessment/Plan (1) CAD (coronary artery disease) Code(s): I25.10 - Atherosclerotic heart disease of [place] coronary artery without angina pectoris Status: Chronic (2) Thrombocytopenia Code(s): D69.6 - Thrombocytopenia, unspecified Status: Acute - Plan Mr. Lees 72-year-old gentleman, with a history of idiopathic thrombocytopenic purpura, currently hospitalized for symptomatic thrombocytopenia from ITP exacerbation. Patient had a recent hospitalization for heart block, received pacemaker placement and also placement of a drug-eluting stent to the LAD. Patient was discharged home on Plavix and aspirin. 1. ITP s/p IVIG and steroids, continues on steroids. He should continue on prednisone approximately 1 mg/kg, 30 mg p.o. twice daily. He will need a slow taper and outpatient basis. 2. Pt has competing needs, antiplatelet therapy for his coronary artery disease and recent stent and to treat his ITP and increase his platelet count to prevent spontaneous bleeding. 3. Platelets improved to 68,000 today. Status post Nplate injection on 2017. 4. Platelets > 50,000, he may resume antiplatelet therapy per his stamp clerk. Dr. Varun Santillan's last note mentions avoiding Plavix as it is being considered as possible culprit for inducing thrombocytopenia and he would therefore consider a different agent such as Brilinta, Effient or Ticlid. We will defer to him for decision on which antiplatelet therapy. - Attending Statement The exam, history, and the medical decision-making described in the above note were completed with the assistance of the mid-level provider. I reviewed and agree with the findings presented. I attest that I had a [id number] encounter with the patient on the same day, and personally performed and documented my assessment and findings in the medical record. Patient denies any new complaint Sitting on the chair at the bedside Platelets went up to 68 Patient was started on Plavix today Continue to monitor CBC Dr. Plascencia to resume care tomorrow
[2018-08-28] MEDS: Melatonin 5 MG Tablet PO SCH (22:14)
[2018-08-29 05:38] LABS: Baso % (Auto) 0.2 % (0.0-2.0); Eos % (Auto) 0.2 % (0.0-4.0); Hematocrit 34.2 % (39.0-51.0); Hemoglobin 11.3 gm/dL (13.0-17.0); Lymph % (Auto) 16.5 % (9.0-44.0); Mean Corpuscular Hemoglobin 30.6 pg (27.0-34.0); Mean Corpuscular Volume 92.9 fL (80.0-100.0); Mean Platelet Volume 10.3 fL (7.0-11.0); Mono # (Auto) 0.8 th/mm3 (0.0-0.9); Mono % (Auto) 4.6 % (0.0-8.0); Neut # (Auto) 14.4 th/mm3 (1.8-7.7); Neut % (Auto) 78.5 % (16.0-70.0); Platelet Count 126 th/mm3 (150-450); Red Blood Count 3.68 mil/mm3 (4.50-5.90); Red Cell Distribution Width 16.6 % (11.6-17.2); White Blood Count 18.3 th/mm3 (4.0-11.0)
[2018-08-29] MEDS: Insulin NovoLOG Aspart Correctional Sugar Inj SQ SCH ×4 (07:45→23:01)
[2018-08-29] MEDS: Spironolactone 25 MG Tablet PO SCH (08:11)
[2018-08-29] MEDS: predniSONE 10 MG Tablet PO SCH (08:11)
[2018-08-29] MEDS: Calcitriol 0.25 MCG Capsule PO SCH (08:11)
[2018-08-29] MEDS: Atenolol 100 MG Tablet PO SCH (08:11)
[2018-08-29] MEDS: Insulin Detemir Inj 1,000 UNIT/10 ML Vial SQ SCH ×2 (08:12→23:00)
--- NOTE | 2018-08-29 15:40 | P.PNONC ---
Subjective Interval history: Patient excited to be going home today. He denies any bleeding or pain. Objective Vital Signs/Intake & Output: Vital Signs 08/28/18 16:00 08/28/18 19:00 08/28/18 20:00 Temperature 98.1 F 97.6 F Pulse Rate 69 98 H 61 Respiratory Rate 20 18 Blood Pressure 153/70 H 137/63 Pulse Oximetry 98 98 08/29/18 00:00 08/29/18 01:41 08/29/18 04:00 Temperature 97.8 F 97.6 F Pulse Rate 60 59 L Respiratory Rate 18 18 Blood Pressure 144/67 H 166/74 H Pulse Oximetry 99 98 08/29/18 07:00 08/29/18 08:00 08/29/18 12:00 Temperature 97.5 F L 97.9 F Pulse Rate 61 63 Respiratory Rate 10 04 18 Blood Pressure 170/80 H 174/84 H Pulse Oximetry 96 99 08/29/18 12:47 Temperature Pulse Rate 59 L Respiratory Rate Blood Pressure Pulse Oximetry Intake & Output 08/28/18 08/29/18 08/29/18 18:59 06:59 18:59 Intake Total 1500 / 1500 480 / 480 Balance 1500 / 1500 480 / 480 Weight 68.8 kg Intake: Oral 1500 / 1500 480 / 480 Other: # Voids 2 3 Date of Last Bowel Movement 08/28/18 08/29/18 # Bowel Movements 1 Result Diagrams: 08/29/18 04:47 08/21/18 08:56 Laboratory Results: Laboratory Results - last 24 hr 08/28/18 08/28/18 08/29/18 17:39 22:13 04:47 WBC 18.3 H RBC 3.68 L Hgb 11.3 L Hct 34.2 L MCV 92.9 MCH 30.6 MCHC 33.0 RDW 16.6 Plt Count 126 L D MPV 10.3 Neut % (Auto) 78.5 H Lymph % (Auto) 16.5 [place] % (Auto) 4.6 Eos % (Auto) 0.2 Baso % (Auto) 0.2 Neut # (Auto) 14.4 H Lymph # (Auto) 3.0 [place] # (Auto) 0.8 Eos # (Auto) 0.0 Baso # (Auto) 0.0 WBC Differential . Differential Comment Auto diff final POC Glucose 212 H 279 H 08/29/18 08/29/18 07:20 12:09 WBC RBC Hgb Hct MCV MCH MCHC RDW Plt Count MPV Neut % (Auto) Lymph % (Auto) [place] % (Auto) Eos % (Auto) Baso % (Auto) Neut # (Auto) Lymph # (Auto) [place] # (Auto) Eos # (Auto) Baso # (Auto) WBC Differential Differential Comment POC Glucose 146 H 200 H Culture Results: Microbiology 08/27/18 16:45 Aerobic Blood Culture - Preliminary Blood - Peripheral No growth in 2 days Anaerobic Blood Culture - Preliminary No growth in 2 days 08/27/18 16:40 Aerobic Blood Culture - Preliminary Blood - Peripheral No growth in 2 days Anaerobic Blood Culture - Preliminary No growth in 2 days Medications: Active Medications Generic Name Dose Route Start Last Admin Trade Name Freq PRN Reason Stop Dose Admin Atenolol 100 mg 08/18/18 09:00 08/29/18 08:11 Tenormin PO 100 mg DAILY GLENIS Administration Calcitriol 0.25 mcg 08/18/18 09:00 08/29/18 08:11 Rocaltrol PO 0.25 mcg DAILY GLENIS Administration Clonidine HCl 0.2 mg 08/21/18 15:24 08/26/18 13:06 Catapres PO 0.2 mg Q4H PRN Administration sbp > 160 Docusate Sodium 100 mg 08/23/18 00:46 08/27/18 22:36 Colace PO 100 mg BID PRN Administration CONSTIPATION Enalaprilat 1.25 mg 08/21/18 15:24 08/23/18 08:40 Vasotec Inj IV.PUSH 1.25 mg Q6H PRN Administration sbp > 170 Insulin Aspart 0 unit 08/18/18 17:00 08/29/18 12:35 Novolog Insulin Correctional Sugar Inj SQ 10 unit ACHS GLENIS Administration Protocol Insulin Detemir 10 unit 08/24/18 21:00 08/28/18 22:20 Levemir Inj SQ 10 unit HS GLENIS Administration Insulin Detemir 24 unit 08/27/18 09:00 08/29/18 08:12 Levemir Inj SQ 24 unit DAILY GLENIS Administration Melatonin 5 mg 08/17/18 21:00 08/28/18 22:14 Melatonin PO 5 mg HS GLENIS Administration Nifedipine 30 mg 08/27/18 15:15 08/29/18 08:11 Procardia Xl PO 30 mg DAILY GLENIS Administration Romiplostim 70 mcg 08/23/18 18:00 08/23/18 17:13 Nplate Inj SQ 70 mcg Q7D GLENIS Administration Spironolactone 25 mg 08/18/18 09:00 08/29/18 08:11 Aldactone PO 25 mg DAILY GLENIS Administration Objective Remarks: GENERAL: Well-nourished, well-developed elderly male patient, in no acute distress. SKIN: Warm and dry. Ecchymosis under left eye, fading. HEAD: Normocephalic. EYES: No scleral icterus. No injection or drainage. NECK: Supple, trachea midline. CARDIOVASCULAR: +S1/S2 without murmurs. RESPIRATORY: Posterior breath sounds equal bilaterally. Nonlabored at rest. GASTROINTESTINAL: Abdomen soft, non-tender, nondistended. EXTREMITIES: No cyanosis, or edema. MUSCULOSKELETAL: Adequate muscle tone. NEUROLOGICAL: No obvious focal deficit. Awake, alert, and oriented x3. PSYCHIATRIC: Appropriate mood and affect; insight and judgment normal. Assessment/Plan (1) CAD (coronary artery disease) Code(s): I25.10 - Atherosclerotic heart disease of [place] coronary artery without angina pectoris Status: Chronic (2) Thrombocytopenia Code(s): D69.6 - Thrombocytopenia, unspecified Status: Acute - Plan Mr. Lees 72-year-old gentleman, with a history of idiopathic thrombocytopenic purpura, currently hospitalized for symptomatic thrombocytopenia from ITP exacerbation. Patient had a recent hospitalization for heart block, received pacemaker placement and also placement of a drug-eluting stent to the LAD. Patient was discharged home on Plavix and aspirin. 1. ITP s/p IVIG and steroids, we will decrease prednisone to 40 mg daily and continue appropriate taper. 2. Patient has resumed antiplatelet therapy per his machine edge bander. 3. Patient will have CBC on Wednesday, Wednesday, Wednesday in the outpatient clinic and will follow up with Dr. Plascencia in 1 week. 4. We will request outpatient insurance approval for Nplate. - Attending Statement The exam, history, and the medical decision-making described in the above note were completed with the assistance of the mid-level provider. I reviewed and agree with the findings presented. I attest that I had a [id number] encounter with the patient on the same day, and personally performed and documented my assessment and findings in the medical record.No bleeding. No CP. Platelet up to 126k. Start tapering steroid. Arrange for N-plate injection tomorrow and f/u outpt clinic. Pt will start Brilinta. Discussed with .
--- NOTE | 2018-08-29 15:58 | P.DS ---
DS: Providers Date of admission: 08/17/18 10:53 Primary care physician: Hussein Morgan MD, PhD Consults: 08/17/18 13:11 Consult to Cardiology Routine Consulting Provider: Varun Santillan Does the patient have a Content Strategist who follows them?: Yes Preferred Meat Carver:: Josiah Elmore Reason for Consultation: CAD with resent WILBUR now with thrombocytopenia and possible ITP Notified:: Office Spoke with:: STEFANY Date Notified:: 08/17/18 Time Notified:: 13:17 Ordering Provider: BETTE 08/17/18 13:13 Consult to Hematology Routine Consulting Provider: Mike Plascencia Reason for Consultation: Thrombocytopenia, possible ITP Notified:: Office Spoke with:: SETH Date Notified:: 08/17/18 Time Notified:: 13:21 Ordering Provider: BETTE DS: Diagnosis Discharge Diagnosis (1) CAD (coronary artery disease): Status: Chronic (2) Thrombocytopenia: Status: Acute DS: Summary Acute thrombocytopenia ITP - Pt is a pleasant 72 y/o WM with prior aortic valve pathology s/p AVR in 2010, hx of diastolic heart failure, CKD, stage III, HTN, CAD, DM and remote hx of ITP. - Pt had a recent complicated hospitalization, details below. Pt had been doing well following that hospitalization. This morning he woke up and noted blood on his pillow. He states that he noted some large bloody blistering on his lips and buccal mucosa. This prompted him to come to the ED for further evaluation. He noted that he began having petechia on his calves and ecchymosis on his feet bilaterally. 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 - Labs at admission noted platelet count of 6,000 which is a significant change from the labs on previous admissions. 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 - peripheral smear negative for shistocytes. ldh nml. - Hit AB negative - s/p 1 unit plt 08/17, 1 unit on 08/18, 1 unit 08/19 - Course of IV solumedrol completed - PO prednisone - IVIG started on 08/18 and 08/19 - once platelets above 50k will rechallenge with dual anti plt therapy to protect the wilbur. - Nplate (08/23) per Hematology. Weekly to stimulate platelets. - platelet count 14k (08/24), 14K (08/25), 15 (08/26), 38 (08/27), 68 (08/28), 126 (08/29) - Case d/w Dr. Plascencia (08/29/18) - repeat CBC in AM - ASA 325mg daily - Brilinta 90mg BID - wean prednisone 20mg BID x 4d, then 20mg daily x 4d then stop HTN - BP readings improving - procardia XL 30mg, increase to BID - aldactone - atenolol 100mg daily CHF with preserved LV function - Currently compensated - Pt was taken off Lasix, to be used as needed for any LE edema - He was continued on Aldactone - Cont. BB Diabetes mellitus - NovoLog SSI - Accu checks - continue PO prednisone for now per Hematology - levemir to 10 units in PM & 24 units in AM - Pt will resume outpt regimen upon discahrge. CKD, stage 3 - labs are stable Time Spent with Patient Total time spent providing and/or coordinating discharge services: Quality: VTE Deep Vein Thrombosis/Pulmonary Embolism Present on Admission: No DS: Data Labs on day of discharge: Labs from last 24 hours 08/29/18 08/29/18 08/29/18 12:09 07:20 04:47 WBC 18.3 H RBC 3.68 L Hgb 11.3 L Hct 34.2 L MCV 92.9 MCH 30.6 MCHC 33.0 RDW 16.6 Plt Count 126 L D MPV 10.3 Neut % (Auto) 78.5 H Lymph % (Auto) 16.5 [place] % (Auto) 4.6 Eos % (Auto) 0.2 Baso % (Auto) 0.2 Neut # (Auto) 14.4 H Lymph # (Auto) 3.0 [place] # (Auto) 0.8 Eos # (Auto) 0.0 Baso # (Auto) 0.0 WBC Differential . Differential Comment Auto diff final POC Glucose 200 H 146 H 08/28/18 08/28/18 22:13 17:39 WBC RBC Hgb Hct MCV MCH MCHC RDW Plt Count MPV Neut % (Auto) Lymph % (Auto) [place] % (Auto) Eos % (Auto) Baso % (Auto) Neut # (Auto) Lymph # (Auto) [place] # (Auto) Eos # (Auto) Baso # (Auto) WBC Differential Differential Comment POC Glucose 279 H 212 H Preliminary micro results at discharge 08/27/18 16:45 Aerobic Blood Culture - Preliminary Blood - Peripheral No growth in 2 days Anaerobic Blood Culture - Preliminary No growth in 2 days 08/27/18 16:40 Aerobic Blood Culture - Preliminary Blood - Peripheral No growth in 2 days Anaerobic Blood Culture - Preliminary No growth in 2 days Discharge Plan Discharge Disposition Patient Disposition: 01 Discharge Home Discharge Condition Condition: Stable Discharge Details Anticipated Discharge Date: 08/29/18 Physicians Team ED Provider: Flor Farmer Primary Care Provider: Hussein Morgan Attending Provider: Tiago Arias Other Providers: Varun Santillan ; Mike Plascencia Rxs /Orders / Referrals /Forms Prescriptions: New nifedipine 30 mg Tablet Extended Release 24hr 30 mg PO DAILY 30 Days Qty: 30 RF: 0 aspirin 325 mg Tablet 325 mg PO DAILY 30 Days Qty: 30 RF: 0 ticagrelor [Brilinta] 90 mg Tablet 90 mg PO BID 30 Days Qty: 60 RF: 0 prednisone 20 mg tablet 20 mg PO DIRECTED Qty: 12 RF: 0 Continue multivitamin Tablet 1 tab PO DAILY RF: 0 furosemide 40 mg Tablet 40 mg PO DAILY PRN (Reason: Edema) RF: 0 insulin glargine [Lantus U-100 Insulin] 100 unit/mL Solution 23 units Sub-Q HS RF: 0 spironolactone 25 mg Tablet 25 mg PO DAILY RF: 0 insulin aspart U-100 [Novolog U-100 Insulin aspart] 100 unit/mL Solution 5 unit SUB-Q AC BREAKFAST RF: 0 insulin aspart U-100 [Novolog U-100 Insulin aspart] 100 unit/mL Solution 8 units Sub-Q AC LUNCH RF: 0 insulin aspart U-100 [Novolog U-100 Insulin aspart] 100 unit/mL Solution 8 units Sub-Q AC DINNER RF: 0 calcitriol 0.25 mcg Capsule 0.25 mcg PO DAILY RF: 0 atenolol 100 mg Tablet 100 mg PO DAILY RF: 0 iron, carbonyl [Feosol] 45 mg Tablet 65 mg PO DAILY RF: 0 melatonin 5 mg Tablet 5 mg PO HS RF: 0 Discontinued aspirin 81 mg Tablet,Delayed Release (Dr/Ec) 81 mg PO DAILY RF: 0 clopidogrel 75 mg Tablet 75 mg PO DAILY RF: 0 doxylamine succinate 25 mg Tablet 25 mg PO DAILY RF: 0 Ambulatory Orders / Order Sets / DME: Complete Blood Count with Diff (Routine) Timeframe: 1 Week Location: Determined by Patient Ordered By: Shireen Salazar Referrals: Mike Plascencia MD [Physician] - See Instructions (follow up in 1-2 weeks) Varun Santillan DO [Physician] - See Instructions (follow up in 2 weeks) Hussein Morgan MD, PhD [Primary Care Provider] - See Instructions (follow up in in 1 week) Discharge Instructions Patient Printed Instructions: Eltrombopag (By mouth) Status ED Status: Left Department
[2018-08-29] MEDS ORDERED: predniSONE 10 MG Tablet PO ONE (21:00)
[2018-08-29] MEDS: Aspirin 325 MG Tablet PO SCH (23:00)
[2018-08-29] MEDS: Melatonin 5 MG Tablet PO SCH (23:00)
[2018-08-30 07:27] LABS: Baso % (Auto) 0.2 % (0.0-2.0); Eos # (Auto) 0.1 th/mm3 (0.0-0.4); Eos % (Auto) 0.8 % (0.0-4.0); Hematocrit 34.5 % (39.0-51.0); Hemoglobin 11.5 gm/dL (13.0-17.0); Lymph # (Auto) 4.2 th/mm3 (1.0-4.8); Lymph % (Auto) 26.2 % (9.0-44.0); Mean Corpuscular HGB Conc 33.2 % (32.0-36.0); Mean Corpuscular Hemoglobin 30.8 pg (27.0-34.0); Mean Corpuscular Volume 92.8 fL (80.0-100.0); Mean Platelet Volume 9.4 fL (7.0-11.0); Mono # (Auto) 1.4 th/mm3 (0.0-0.9); Neut # (Auto) 10.1 th/mm3 (1.8-7.7); Neut % (Auto) 63.8 % (16.0-70.0); Platelet Count 197 th/mm3 (150-450); Red Blood Count 3.72 mil/mm3 (4.50-5.90); Red Cell Distribution Width 16.6 % (11.6-17.2); White Blood Count 15.9 th/mm3 (4.0-11.0)
[2018-08-30] MEDS: Insulin NovoLOG Aspart Correctional Sugar Inj SQ SCH (07:34)
[2018-08-30 08:18] VITALS: BP 165/74; PULSE 62; RESP 20; TEMP 97.6; O2SAT 97
[2018-08-30] MEDS ORDERED: predniSONE 20 MG Tablet PO SCH (09:00)
[2018-08-30] MEDS: Aspirin 325 MG Tablet PO SCH (09:10)
[2018-08-30] MEDS: Spironolactone 25 MG Tablet PO SCH (09:10)
[2018-08-30] MEDS: Calcitriol 0.25 MCG Capsule PO SCH (09:10)
[2018-08-30] MEDS: Atenolol 100 MG Tablet PO SCH (09:11)
[2018-08-30] MEDS: Insulin Detemir Inj 1,000 UNIT/10 ML Vial SQ SCH (09:14)
--- NOTE | 2018-08-30 14:45 | P.PNONC ---
Subjective Interval history: Patient denies any bleeding. He is eager to go home. He was started on Brilinta and aspirin. The prednisone has been tapered down to 40 mg. Objective Vital Signs/Intake & Output: Vital Signs 08/29/18 16:00 08/29/18 20:00 08/30/18 00:00 Temperature 97.3 F L 97.7 F 97.6 F Pulse Rate 63 60 60 Respiratory Rate 18 18 18 Blood Pressure 148/72 H 163/73 H 163/75 H Pulse Oximetry 99 99 99 08/30/18 04:00 08/30/18 08:00 Temperature 97.7 F 97.6 F Pulse Rate 65 62 Respiratory Rate 18 20 Blood Pressure 148/69 H 165/74 H Pulse Oximetry 98 97 Intake & Output 08/29/18 08/30/18 08/30/18 18:59 06:59 18:59 Intake Total 720 / 720 Balance 720 / 720 Weight 68.9 kg Intake: Oral 720 / 720 Other: # Voids 3 Date of Last Bowel Movement 08/29/18 08/29/18 08/29/18 Result Diagrams: 08/30/18 06:40 08/21/18 08:56 Laboratory Results: Laboratory Results - last 24 hr 08/29/18 08/29/18 08/30/18 16:30 22:44 06:40 WBC 15.9 H RBC 3.72 L Hgb 11.5 L Hct 34.5 L MCV 92.8 MCH 30.8 MCHC 33.2 RDW 16.6 Plt Count 197 D MPV 9.4 Neut % (Auto) 63.8 Lymph % (Auto) 26.2 [place] % (Auto) 9.0 H Eos % (Auto) 0.8 Baso % (Auto) 0.2 Neut # (Auto) 10.1 H Lymph # (Auto) 4.2 [place] # (Auto) 1.4 H Eos # (Auto) 0.1 Baso # (Auto) 0.0 WBC Differential . Differential Comment Auto diff final POC Glucose 73 228 H 08/30/18 07:28 WBC RBC Hgb Hct MCV MCH MCHC RDW Plt Count MPV Neut % (Auto) Lymph % (Auto) [place] % (Auto) Eos % (Auto) Baso % (Auto) Neut # (Auto) Lymph # (Auto) [place] # (Auto) Eos # (Auto) Baso # (Auto) WBC Differential Differential Comment POC Glucose 119 H Culture Results: Microbiology 08/27/18 16:45 Aerobic Blood Culture - Preliminary Blood - Peripheral No growth in 3 days Anaerobic Blood Culture - Preliminary No growth in 3 days 08/27/18 16:40 Aerobic Blood Culture - Preliminary Blood - Peripheral No growth in 3 days Anaerobic Blood Culture - Preliminary No growth in 3 days Objective Remarks: GENERAL: Well-nourished, well-developed patient. SKIN: Warm and dry. HEAD: Normocephalic. EYES: No scleral icterus. No injection or drainage. NECK: Supple, trachea midline. No JVD or lymphadenopathy. LYMPHATIC: No adenopathy. CARDIOVASCULAR: Regular rate and rhythm without murmurs. RESPIRATORY: Breath sounds equal bilaterally. No accessory muscle use. GASTROINTESTINAL: Abdomen soft, non-tender, nondistended. EXTREMITIES: No cyanosis, or edema. MUSCULOSKELETAL: Adequate muscle tone. NEUROLOGICAL: No obvious focal deficit. Awake, alert, and oriented x3. PSYCHIATRIC: Appropriate mood and affect; insight and judgment normal. Assessment/Plan (1) CAD (coronary artery disease) Code(s): I25.10 - Atherosclerotic heart disease of [place] coronary artery without angina pectoris Status: Chronic (2) Thrombocytopenia Code(s): D69.6 - Thrombocytopenia, unspecified Status: Acute - Plan Mr. Lees 72-year-old gentleman, with a history of idiopathic thrombocytopenic purpura, currently hospitalized for symptomatic thrombocytopenia from ITP exacerbation. Patient had a recent hospitalization for heart block, received pacemaker placement and also placement of a drug-eluting stent to the LAD. Patient was discharged home on Plavix and aspirin. 1. ITP s/p IVIG and steroid With no clear response. He was given 1 dose of Nplate August 23 and had very good response. His platelet count is now up 196, 000. I will hold the Nplate today. Continue to taper prednisone. Told patient to follow-up at hematology clinic to monitor CBC. We will give him Nplate if his platelet count trended lower again. I have discussed the case with Dr. Whitaker. 2. Patient has resumed antiplatelet therapy With Brilinta and aspirin per his holter scanning technician. 3. Patient will have CBC on Wednesday, Wednesday, Wednesday in the outpatient clinic and will follow up with Dr. Plascencia in 1 week. 4. We will request outpatient insurance approval for Nplate.
== END 2018-08-30 10:58 | disposition home or self-care (01) ==
LOC: NEPC 09:01 → NEDA 10:53 → N05 14:54
PROVIDERS: ADMIT Hospitalist; ATTEND Hospitalist
DX: I25.2 Old myocardial infarction; N18.3 Chronic kidney disease, stage 3 (moderate); R58 Hemorrhage, not elsewhere classified; Z79.4 Long term (current) use of insulin; E11.22 Type 2 diabetes mellitus with diabetic chronic kidney disease; Z95.0 Presence of cardiac pacemaker; E78.5 Hyperlipidemia, unspecified; Z96.641 Presence of right artificial hip joint; Z95.2 Presence of prosthetic heart valve; Z90.81 Acquired absence of spleen; E11.65 Type 2 diabetes mellitus with hyperglycemia; Z95.5 Presence of coronary angioplasty implant and graft; D69.3 Immune thrombocytopenic purpura; I50.32 Chronic diastolic (congestive) heart failure; I13.0 Hypertensive heart and chronic kidney disease with heart failure and stage 1 through stage 4 chronic kidney disease, or unspecified chronic kidney disease; I25.119 Atherosclerotic heart disease of native coronary artery with unspecified angina pectoris; T38.0X5A Adverse effect of glucocorticoids and synthetic analogues, initial encounter; I08.3 Combined rheumatic disorders of mitral, aortic and tricuspid valves